=== PATIENT | male | born 1955 ===

== ENCOUNTER 2017-06-20 09:31 | Inpatient (IN) | payer MEDICARE, MEDICAID ==
[2017-06-20 09:32] VITALS: BMI 21.2
[2017-06-20 10:22] LABS: BASO % 0.2 % (0.0-2.0); EOS % 0.1 % (0.0-4.0); HEMATOCRIT 32.2 % (35.0-51.0); LYMPH # 0.5 K/uL (1.0-4.3); LYMPH % 6.7 % (20.0-40.0); MEAN CELL VOLUME 89.7 fL (80.0-94.0); MEAN CORPUSCULAR HEMOGLOBIN 29.8 pg (27.0-31.0); MEAN CORPUSCULAR HGB CONC 33.2 g/dL (33.0-37.0); MEAN PLATELET VOLUME 8.9 fL (7.2-11.7); MONO # 0.8 K/uL (0.0-0.8); MONO % 9.8 % (0.0-10.0); RED CELL DISTRIBUTION WIDTH 16.7 % (11.5-14.5); WHITE BLOOD COUNT 7.9 K/uL (4.8-10.8)
[2017-06-20 10:24] LABS: PLATELET COUNT 119 K/uL (130-400)
[2017-06-20 10:30] LABS: ALB/GLOB RATIO 0.9 (1.0-2.1); ALKALINE PHOSPHATASE 150 U/L (38-126); ALT/SGPT 27 U/L (21-72); AST/SGOT 20 U/L (17-59); BLOOD UREA NITROGEN 46 mg/dL (9-20); CALCIUM 9.2 mg/dl (8.6-10.4); CARBON DIOXIDE 36 mmol/L (22-30); CHLORIDE 94 mmol/L (98-107); GFR AFRICAN-AMERICAN 15; GLUCOSE,RANDOM 159 mg/dL (75-110); POTASSIUM 3.8 mmol/L (3.6-5.2); SODIUM 137 mmol/L (132-148); TOTAL PROTEIN 7.3 g/dL (6.3-8.3)
--- NOTE | 2017-06-20 10:30 | C.PDOC ---
History Of Present Illness 61 year old male is sent her from his [facility] for evaluation of SOB. As per [facility] patient had a fever last night, today his SOB was worsened, he was given clonidine 0.3 mg PO and imdur while at the [facility]. Patient states he goes to dialysis on Sunday, and Sunday. Time Seen by Provider: 06/20/17 10:01 Chief Complaint (Nursing): Shortness Of Breath History Per: Patient History/Exam Limitations: clinical condition Onset/Duration Of Symptoms: Hrs Current Symptoms Are (Timing): Still Present Quality: "Pain" Exacerbating Factor(s): Laying Flat Associated Symptoms: Ankle/Leg Swelling Recent travel outside of the [place]: No Additional History Per: Patient Past Medical History Reviewed: Historical Data, Nursing Documentation, Vital Signs Vital Signs: Last Vital Signs Temp 99.0 F 06/20/17 09:38 Pulse 75 06/20/17 12:00 Resp 24 06/20/17 12:00 BP 171/72 H 06/20/17 12:00 Pulse Ox 98 06/20/17 12:00 - Medical History PMH: Anemia (BLOOD TRANSFUSION-ACCIDENTAL DISLODGEMENT OF NEEDLE TO SHUNT LOST 2 L OF BL), CHF, COPD, Diabetes, Gastrointestinal Ulcer, HTN, Hypercholesterolemia, Hyperlipidemia, Hypothyroidism, Pneumonia, End Stage Renal Disease (on hemodialysis 3x a week), Chronic Kidney Disease, TIA Denies: Bronchitis Surgical History: Coronary Stent Denies: Pacemaker - [facility] CONTINUOUS INVASIVE MECHANICAL VENTILATION <96 CONSEC HRS (01/16/13) CORONAR ARTERIOGR-2 CATH (05/04/12) DESTRUCTION OF STOMACH, ENDO (12/21/15) DX ULTRASOUND-HEAD/NECK (04/25/12) GAIT TRAINING/FUNCTIONAL AMBULATION TREATMENT (09/03/15) HEAD SOFT TISS X-RAY NEC (04/25/12) HEMODIALYSIS (10/01/14) INCIS W REM OF FORIEGN BODY OR DEV FROM SKIN & SUBCUT TISSUE (01/15/13) INSERT ENDOTRACHEAL TUBE (01/16/13) INSERTION OF ONE VASCULAR STENT (05/04/12) INSERTION OF TOTALLY IMPLANTABLE VASC ACCESS DEVIC (07/24/12) INSPECTION OF LARYNX, ENDO (08/29/15) INSRT OF DRUG-ELUTING CORON ARTERY STENTS(S) (05/04/12) INTRODUCE OF OTH THERAP SUBST INTO RESP TRACT, VIA OPENING (12/21/15) LEFT HEART CARDIAC CATH (05/04/12) LT HEART ANGIOCARDIOGRAM (05/04/12) MAGNETIC RESONANCE IMAGING OF BRAIN AND BRAIN STEM (11/12/12) MAGNETIC RESONANCE IMAGING OF MUSCULOSKELETAL (12/03/12) NEBULIZER THERAPY (01/16/13) NONEXCIS DEBRID OF WOUND, INFECT, OR BURN (12/03/12) PACKED CELL TRANSFUSION (05/04/12) PERCUTANEOUS TRANSLUMINAL CORONARY ANGIOPLASTY [PTCA] (05/04/12) PERFORMANCE OF URINARY FILTRATION, MULTIPLE (12/21/15) PERFORMANCE OF URINARY FILTRATION, SINGLE (11/12/15) PROCEDURE ON SINGLE VESSEL (05/04/12) TRANSFUSE NONAUT RED BLOOD CELLS IN PERIPH VEIN, PERC (12/21/15) VACCINATION NEC (07/24/12) VENOUS CATHETERIZATION FOR RENAL DIALYSIS (04/25/12) VENOUS PUNCTURE NEC (08/19/13) VOCATION/COMMUN TREATMENT (09/03/15) Family History: States: Unknown Family Hx - Social History Hx Tobacco Use: No Hx Alcohol Use: No Hx Substance Use: No Review Of Systems Review Of Systems: ROS cannot be obtained secondary to pt's inabilty to answer questions. Physical Exam - Physical Exam Appears: Non-toxic, In Acute Distress Skin: Normal Color, Warm, Dry Head: Atraumatic, Normacephalic Nose: No Discharge Oral Mucosa: Moist Neck: Normal ROM, Supple Chest: Symmetrical Cardiovascular: Rhythm Regular, No Murmur Respiratory: Rales (B/L), Rhonchi (B/L), Other (Mild SOB) Gastrointestinal/Abdominal: Soft, No Tenderness, No Distention, No Rebound Extremity: Normal ROM, No Calf Tenderness, No Deformity, Swelling (1+ B/L lower extremities) Neurological/Psych: Oriented x3 ED Course And Treatment - Laboratory Results Result Diagrams: 06/20/17 10:15 06/20/17 10:15 O2 Sat by Pulse Oximetry: 98 (On RA) Pulse Ox Interpretation: Normal - Radiology CXR: Interpreted by Me, Viewed By Me, Read By Radiologist CXR Interpretation: Yes: Other (Mild central pulmonary vascular congestion with more confluent opacities both lung bases. Suspect small bilateral effusions.) Medical Decision Making Medical Decision Making: Impression : Mild SOB Plan: * ABG * EKG * CXR * Blood work * Blood culture * O2 nasal cannula Disposition Discussed With : Jp Hernandez - Disposition Disposition: HOSPITALIZED Disposition Time: 12:20 Condition: IMPROVED Forms: [facility] (Lao) - Clinical Impression Clinical Impression: Congestive cardiac failure, Chronic congestive heart failure, Renal failure - Scribe Statement The provider has reviewed the documentation as recorded by the Scribe Provider Attestation: Mikie Ventura All medical record entries made by the Scribe were at my direction and personally dictated by me. I have reviewed the chart and agree that the record accurately reflects my personal performance of the history, physical exam, medical decision making, and the department course for this patient. I have also personally directed, reviewed, and agree with the discharge instructions and disposition.
--- NOTE | 2017-06-20 10:33 | RAD ---
HISTORY: shortness of breath COMPARISON: Comparison chest dated 09/04/2012 ectomy FINDINGS: LUNGS: Mild central pulmonary vascular congestive changes with more confluent opacification in both lung bases. . There may also be small bilateral effusions left larger than right. Pleura As above. No apparent pneumothorax. CARDIOVASCULAR: Cardiomegaly. OSSEOUS STRUCTURES: No significant abnormalities. VISUALIZED UPPER ABDOMEN: Normal. OTHER FINDINGS: None. IMPRESSION: Mild central pulmonary vascular congestion with more confluent opacities both lung bases. Suspect small bilateral effusions.
[2017-06-20 10:46] LABS: BASOPHIL 1 % (0-2); NEUTROPHIL 70 % (50-75); TOTAL CELLS COUNTED 100
[2017-06-20 11:09] LABS: ARTERIAL BLOOD HGB O2 SAT 86.7 % (95.0-98.0); DRAW SITE LB; HHB 7.6 % (0.0-5.0); METHEMOGLOBIN 1.8 % (0.0-3.0)
--- NOTE | 2017-06-20 19:45 | CP.PCM.HP ---
Past Patient History - Infectious Disease Hx of Infectious Diseases: None - Tetanus Immunizations Tetanus Immunization: Unknown - Past Medical History & Family History Past Medical History?: Yes - Past Social History Smoking Status: Former Smoker - CARDIAC Hx Congestive Heart Failure: Yes Hx Hypercholesterolemia: Yes Hx Hypertension: Yes Hx Pacemaker: No - PULMONARY Hx Bronchitis: No Hx Chronic Obstructive Pulmonary Disease (COPD): Yes Hx Pneumonia: Yes - NEUROLOGICAL Hx Transient Ischemic Attacks (TIA): Yes - HEENT Hx HEENT Problems: Yes (WEARS RX GLASSES) Hx Cataracts: Yes (RIGHT EYE) Other/Comment: left strabismus - RENAL Hx Chronic Kidney Disease: Yes - ENDOCRINE/METABOLIC Hx Hypothyroidism: Yes - HEMATOLOGICAL/ONCOLOGICAL Hx Anemia: Yes (BLOOD TRANSFUSION-ACCIDENTAL DISLODGEMENT OF NEEDLE TO SHUNT LOST 2 L OF BL) - INTEGUMENTARY Hx Dermatological Problems: Yes Other/Comment: dry itchy skin - MUSCULOSKELETAL/RHEUMATOLOGICAL Hx Falls: Yes (in the past) - GASTROINTESTINAL Hx Gastrointestinal Disorders: Yes (ASCITES 10-01-15,GASTROENTERITIS) Hx Ulcer: Yes Other/Comment: CONSTIPATION, hx c dif 09/16/15 - GENITOURINARY/GYNECOLOGICAL Hx Genitourinary Disorders: Yes Other/Comment: oliguria - PSYCHIATRIC Hx Substance Use: No - SURGICAL HISTORY Hx Coronary Stent: Yes - ANESTHESIA Hx Anesthesia: Yes Hx Anesthesia Reactions: No Hx Malignant Hyperthermia: No Meds Allergies/Adverse Reactions: Allergies Allergy/AdvReac Type Severity Reaction Status Date / Time tetanus and diphtheria Allergy RASH Verified 12/21/15 11:29 toxoids [tetanus & diphtheria toxoids] Physical Exam - Constitutional Appears: Well - Head Exam Head Exam: ATRAUMATIC, NORMAL INSPECTION, NORMOCEPHALIC - Eye Exam Eye Exam: EOMI, Normal appearance, PERRL Pupil Exam: NORMAL ACCOMODATION, PERRL - ENT Exam ENT Exam: Mucous Membranes Moist, Normal Exam - Neck Exam Neck exam: Positive for: Normal Inspection - Respiratory Exam Respiratory Exam: Decreased Breath Sounds - Cardiovascular Exam Cardiovascular Exam: REGULAR RHYTHM, +S1, +S2 - GI/Abdominal Exam GI & Abdominal Exam: Diminished Bowel Sounds, Soft - Rectal Exam Rectal Exam: Deferred Results - Vital Signs Recent Vital Signs: Last Vital Signs Temp 98.1 F 06/20/17 17:25 Pulse 76 06/20/17 13:55 Resp 24 06/20/17 17:25 BP 178/83 H 06/20/17 17:25 Pulse Ox 95 06/20/17 17:25 - Labs Result Diagrams: 06/20/17 10:15 06/20/17 10:15 Labs: Laboratory Results - last 24 hr 06/20/17 06/20/17 06/20/17 10:15 10:15 11:00 WBC 7.9 RBC 3.59 L Hgb 10.7 L Hct 32.2 L MCV 89.7 MCH 29.8 MCHC 33.2 RDW 16.7 H Plt Count 119 L MPV 8.9 Neut % (Auto) 83.2 H Lymph % (Auto) 6.7 L [place] % (Auto) 9.8 Eos % (Auto) 0.1 Baso % (Auto) 0.2 Neut # 6.6 Lymph # 0.5 L [place] # 0.8 Eos # 0.0 Baso # 0.0 Neutrophils % (Manual) 70 Band Neutrophils % 9 H Lymphocytes % (Manual) 9 L Monocytes % (Manual) 11 H Basophils % (Manual) 1 Platelet Estimate Markedly decreased L Anisocytosis (manual) Slight Puncture Site Lb pCO2 56 H pO2 57 L HCO3 28.7 H ABG pH 7.36 ABG Total CO2 33.3 H ABG O2 Saturation 91.9 L ABG Base Excess 5.1 H ABG Hemoglobin 9.9 L ABG Carboxyhemoglobin 4.0 H POC ABG HHb (Measured) 7.6 H ABG Methemoglobin 1.8 Juan Test Na Hgb O2 Saturation 86.7 L Liter Flow 4.0 Crit Value Called To Dr delcid Crit Value Called By Pedrito perez [facility] Crit Value Read Back Y Blood Gas Notified Time 1110 Sodium 137 Potassium 3.8 Chloride 94 L Carbon Dioxide 36 H Anion Gap 12 BUN 46 H Creatinine 4.7 H Est GFR ( Amer) 15 Est GFR (Non-Af Amer) 13 POC Glucose (mg/dL) Random Glucose 159 H Calcium 9.2 Total Bilirubin 1.0 AST 20 ALT 27 Alkaline Phosphatase 150 H Troponin I 0.0670 NT-Pro-B Natriuret Pep > 391478 H Total Protein 7.3 Albumin 3.5 Globulin 3.8 Albumin/Globulin Ratio 0.9 L 06/20/17 18:52 WBC RBC Hgb Hct MCV MCH MCHC RDW Plt Count MPV Neut % (Auto) Lymph % (Auto) [place] % (Auto) Eos % (Auto) Baso % (Auto) Neut # Lymph # [place] # Eos # Baso # Neutrophils % (Manual) Band Neutrophils % Lymphocytes % (Manual) Monocytes % (Manual) Basophils % (Manual) Platelet Estimate Anisocytosis (manual) Puncture Site pCO2 pO2 HCO3 ABG pH ABG Total CO2 ABG O2 Saturation ABG Base Excess ABG Hemoglobin ABG Carboxyhemoglobin POC ABG HHb (Measured) ABG Methemoglobin Juan Test Hgb O2 Saturation Liter Flow Crit Value Called To Crit Value Called By Crit Value Read Back Blood Gas Notified Time Sodium Potassium Chloride Carbon Dioxide Anion Gap BUN Creatinine Est GFR ( Amer) Est GFR (Non-Af Amer) POC Glucose (mg/dL) 103 Random Glucose Calcium Total Bilirubin AST ALT Alkaline Phosphatase Troponin I NT-Pro-B Natriuret Pep Total Protein Albumin Globulin Albumin/Globulin Ratio
--- NOTE | 2017-06-21 06:28 | PCM.RRT ---
<Talia Jones - Last Filed: 06/21/17 06:51> LINING FOLDER Nurses Assessment - Situation Date: 06/21/17 Time LINING FOLDER was called: 05:56 - Ventilator Settings Ventilator Respiratory Rate Settin Ventilator Tidal Volume Settin I.Reason for LINING FOLDER - A) Acute Change in Patient: (Select all that apply): Acute change in SBP below Subjective: Rapid response was called at 05:56 for low BP and patient unresponsive. Upon arrival BP was 73/33. Patient had a palpable pulse and HR was in the 50s. IV access was obtained with 18G needle in the left neck. Patient was intubated and bag ventilation started. HR continued to drop to the low 40s and code blue was called at 06:07. 1 of epinephrine was given at 06:07. Pulse increased to 130s and BP was 235/116. BP rechecked and 225/95. O2 Sat was 100%. Patient was transferred to the ICU. Plan - Assessment of Findings&Treatment Plan Transferred to ICU. CXR and EKG ordered. <Neeraj Lopez - Last Filed: 06/21/17 07:24> LINING FOLDER Nurses Assessment - IV IV Inserted during LINING FOLDER?: Yes New IV Insertion Tolerance: Excellent (left EJ, 18G) - Respiratory LINING FOLDER Delivery Method: Intubated Was the Patient Ventilated with Bag/Mask 100% O2?: Yes Secretions Suctioned?: Yes Was the Patient Intubated?: Yes Was the Patient Placed on a Ventilator?: Yes - Ventilator Settings Mode: PRVC Ventilator Respiratory Rate Settin PEEP/CPAP (cm H2O): 5 FIO2 (% Oxygen): 100 - Medication Medications Administered During LINING FOLDER: Epinephrine - Diagnostic Test Ordered EKG: Yes Chest X-Ray: Yes - Stat Labs Ordered LINING FOLDER Stat Labs Ordered: CBC, BMP, PT/PTT, TROPONIN, LACTIC ACID, ABG CPR started during LINING FOLDER?: Yes - Vital Signs Vital Signs: Rapid Response Vital Sign Blood Pressure 73/33 Pulse Rate 48 Respiratory Rate 20 Temperature 97 F - [place] Coma Scale Coma Scale Eye Opening: No response Coma Scale Verbal: No response - Sepsis Screen Part 1 Sepsis Screen Part 1: Hypotensive (initially, responded to 500ml of ns and epinephrine)
[2017-06-21] MEDS ORDERED: Pantoprazole 40 mg EC Tab PO SCH (06:30)
[2017-06-21] MEDS: Levothyroxine 25 MCG TAB PO SCH (06:47)
[2017-06-21 07:11] LABS: BASO % 0.3 % (0.0-2.0); EOS % 0.1 % (0.0-4.0); HEMATOCRIT 34.8 % (35.0-51.0); LYMPH # 0.7 K/uL (1.0-4.3); LYMPH % 8.5 % (20.0-40.0); MEAN CELL VOLUME 91.6 fL (80.0-94.0); MEAN CORPUSCULAR HEMOGLOBIN 29.7 pg (27.0-31.0); MEAN CORPUSCULAR HGB CONC 32.4 g/dL (33.0-37.0); MEAN PLATELET VOLUME 9.1 fL (7.2-11.7); MONO # 0.5 K/uL (0.0-0.8); NRBC % 0.1 % (0.0-2.0); PLATELET COUNT 163 K/uL (130-400); RED CELL DISTRIBUTION WIDTH 17.8 % (11.5-14.5); WHITE BLOOD COUNT 8.3 K/uL (4.8-10.8)
--- NOTE | 2017-06-21 07:17 | CP.PCM.CON ---
History of Present Illness - History of Present Illness History of Present Illness: Chief complaint: Shortness of breath History of present illness: 61-year-old male with a history of end-stage renal disease on dialysis cad, hypertension COPD diabetes admitted with shortness of breath. Patient initially admitted to the medical floor. The patient did become more hypotensive, and hypoxia, rapid response was called , at the time patient blood pressure varied and it was low side. When the team was trying to get the IV access patient become more lethargic, and unresponsive [facility] was called, intubated and brought into the ICU. Patient is now on ventilator, responding to deep stability Blood pressure is better now. Sedated also Patient has a multiple hospitalization in the past. Past medical history: End-stage renal disease on dialysis coronary artery disease, cardiac stent, congestive heart failure, hypertension, COPD and diabetes Surgical history including AV fistula. Social history: Patient from senior care. Review of system: Patient is currently on ventilator. Sedated. Further history not available. Medication history noted from the chart Vital signs reviewed No neck vein distention noted Chest bilateral wheezing and rhonchi noted CVS regular heart sound, no murmur noted Abdomen soft, nontender. 1+ pedal edema Patient is currently sedated. Vital signs stable. Chest x-ray shoveling earlier diffuse congestive heart failure, possible aspiration pneumonia Repeat chest x-ray pending. Patient's labs nonspecific Assessment and recommendation: 61-year-old male with a history of diabetes hypertension COPD, end-stage renal disease on dialysis coronary disease, stenting admitted with the shortness of breath, complicated, bradycardia, respiratory arrest status post intubation. Brief CPR. Patient is currently in the intensive care unit. ICU panel, sedation, he may need to dialysis. Closely monitor in the the intensive care unit. ICU team will follow the patient Past Patient History - Infectious Disease Hx of Infectious Diseases: None - Tetanus Immunizations Tetanus Immunization: Unknown - Past Medical History & Family History Past Medical History?: Yes - Past Social History Smoking Status: Never Smoked - CARDIAC Hx Cardiac Disorders: Yes Hx Congestive Heart Failure: Yes Hx Hypercholesterolemia: Yes Hx Hypertension: Yes - PULMONARY Hx Respiratory Disorders: Yes Hx Chronic Obstructive Pulmonary Disease (COPD): Yes Hx Pneumonia: Yes - NEUROLOGICAL Hx Neurological Disorder: Yes Hx Transient Ischemic Attacks (TIA): Yes - HEENT Hx HEENT Problems: Yes (WEARS RX GLASSES) Hx Cataracts: Yes (RIGHT EYE) Other/Comment: left strabismus - RENAL Hx Chronic Kidney Disease: Yes Hx Dialysis: Yes Type of Dialysis Access: Left upper arm HD access Date of Last Dialysis Treatment: 06/20/17 Hx Renal Failure: Yes - ENDOCRINE/METABOLIC Hx Endocrine Disorders: Yes Hx Diabetes Mellitus Type 2: Yes Hx Hypothyroidism: Yes - HEMATOLOGICAL/ONCOLOGICAL Hx Blood Disorders: Yes Hx Anemia: Yes (BLOOD TRANSFUSION-ACCIDENTAL DISLODGEMENT OF NEEDLE TO SHUNT LOST 2 L OF BL) Hx Blood Transfusions: Yes Hx Blood Transfusion Reaction: No - INTEGUMENTARY Hx Dermatological Problems: Yes Other/Comment: dry itchy skin - MUSCULOSKELETAL/RHEUMATOLOGICAL Hx Musculoskeletal Disorders: Yes Hx Arthritis: Yes Hx Back Pain: Yes Hx Falls: Yes (in the past) Hx Unsteady Gait: Yes (uses cane) - GASTROINTESTINAL Hx Gastrointestinal Disorders: Yes (ASCITES 10-01-14,GASTROENTERITIS) Hx Ulcer: Yes Other/Comment: CONSTIPATION, hx c dif 09/16/15, gastrointestinal ulcer - GENITOURINARY/GYNECOLOGICAL Hx Genitourinary Disorders: Yes Other/Comment: oliguria - PSYCHIATRIC Hx Psychophysiologic Disorder: No Hx Substance Use: No - SURGICAL HISTORY Hx Surgeries: Yes Hx Coronary Stent: Yes - ANESTHESIA Hx Anesthesia: Yes Hx Anesthesia Reactions: No Hx Malignant Hyperthermia: No Has any member of the family had a problem w/ anesthesia?: No Meds Allergies/Adverse Reactions: Allergies Allergy/AdvReac Type Severity Reaction Status Date / Time tetanus and diphtheria Allergy RASH Verified 12/21/15 11:29 toxoids [tetanus & diphtheria toxoids] - Medications Medications: Current Medications Albuterol/Ipratropium (Duoneb 3 Mg/0.5 Mg (3 Ml) Ud) 3 ml IH RQ2 PRN PRN Reason: Shortness of Breath Allopurinol (Zyloprim) 100 mg PO DAILY [facility] Amlodipine Besylate (Norvasc) 10 mg PO DAILY [facility] Aspirin (Aspirin) 325 mg PO 0800 [place] Calcium Acetate (Phoslo) 667 mg PO WM [facility] Carvedilol (Coreg) 3.125 mg PO 0800 [place] Clopidogrel Bisulfate (Plavix) 75 mg PO 0800 [facility] Docusate Sodium (Colace) 100 mg PO BID [facility] Famotidine (Pepcid) 20 mg PO DAILY@0630 [facility] Folic Acid (Folic Acid) 1 mg PO DAILY [facility] Furosemide (Lasix) 80 mg PO DAILY [facility] Heparin Sodium (Porcine) (Heparin) 5,000 units SC BID [facility] Home Med (Insulin Lispro-Low [Humalog Low]) 1 10 SC ACHS [facility] Levothyroxine Sodium (Synthroid) 25 mcg PO 0630 [facility] Last Admin: 06/21/17 06:47 Dose: 25 mcg Minoxidil (Minoxidil) 2.5 mg PO DAILY [facility] Rosuvastatin Calcium (Crestor) 5 mg PO [facility] Results - Vital Signs Recent Vital Signs: Last Vital Signs Temp 98.5 F 06/21/17 03:50 Pulse 119 H 06/21/17 06:55 Resp 20 06/21/17 06:55 BP 225/95 H 06/21/17 06:55 Pulse Ox 100 06/21/17 06:55 - Labs Result Diagrams: 06/21/17 07:07 06/20/17 10:15 Labs: Laboratory Results - last 24 hr 06/20/17 06/20/17 06/20/17 10:15 10:15 11:00 WBC 7.9 RBC 3.59 L Hgb 10.7 L Hct 32.2 L MCV 89.7 MCH 29.8 MCHC 33.2 RDW 16.7 H Plt Count 119 L MPV 8.9 Neut % (Auto) 83.2 H Lymph % (Auto) 6.[address] [place] % (Auto) 9.8 Eos % (Auto) 0.1 Baso % (Auto) 0.2 Neut # 6.6 Lymph # 0.[address] [place] # 0.8 Eos # 0.0 Baso # 0.0 Neutrophils % (Manual) 70 Band Neutrophils % 9 H Lymphocytes % (Manual) 9 L Monocytes % (Manual) 11 H Basophils % (Manual) 1 Platelet Estimate Markedly decreased L Anisocytosis (manual) Slight Puncture Site Lb pCO2 56 H pO2 57 L HCO3 28.7 H ABG pH 7.36 ABG Total CO2 33.3 H ABG O2 Saturation 91.9 L ABG Base Excess 5.1 H ABG Hemoglobin 9.9 L ABG Carboxyhemoglobin 4.0 H POC ABG HHb (Measured) 7.6 H ABG Methemoglobin 1.8 Juan Test Na Hgb O2 Saturation 86.7 L Liter Flow 4.0 Crit Value Called To Dr delcid Crit Value Called By Pedrito perez [facility] Crit Value Read Back Y Blood Gas Notified Time 1110 Sodium 137 Potassium 3.8 Chloride 94 L Carbon Dioxide 36 H Anion Gap 12 BUN 46 H Creatinine 4.7 H Est GFR ( Amer) 15 Est GFR (Non-Af Amer) 13 POC Glucose (mg/dL) Random Glucose 159 H Calcium 9.2 Total Bilirubin 1.0 AST 20 ALT 27 Alkaline Phosphatase 150 H Troponin I 0.0670 NT-Pro-B Natriuret Pep > 985102 H Total Protein 7.3 Albumin 3.5 Globulin 3.8 Albumin/Globulin Ratio 0.9 L 06/20/17 06/20/17 06/21/17 18:52 21:09 05:59 WBC RBC Hgb Hct MCV MCH MCHC RDW Plt Count MPV Neut % (Auto) Lymph % (Auto) [place] % (Auto) Eos % (Auto) Baso % (Auto) Neut # Lymph # [place] # Eos # Baso # Neutrophils % (Manual) Band Neutrophils % Lymphocytes % (Manual) Monocytes % (Manual) Basophils % (Manual) Platelet Estimate Anisocytosis (manual) Puncture Site pCO2 pO2 HCO3 ABG pH ABG Total CO2 ABG O2 Saturation ABG Base Excess ABG Hemoglobin ABG Carboxyhemoglobin POC ABG HHb (Measured) ABG Methemoglobin Juan Test Hgb O2 Saturation Liter Flow Crit Value Called To Crit Value Called By Crit Value Read Back Blood Gas Notified Time Sodium Potassium Chloride Carbon Dioxide Anion Gap BUN Creatinine Est GFR ( Amer) Est GFR (Non-Af Amer) POC Glucose (mg/dL) 103 118 H 144 H Random Glucose Calcium Total Bilirubin AST ALT Alkaline Phosphatase Troponin I NT-Pro-B Natriuret Pep Total Protein Albumin Globulin Albumin/Globulin Ratio 06/21/17 07:07 WBC 8.3 RBC 3.80 L Hgb 11.3 L Hct 34.8 L MCV 91.6 MCH 29.7 MCHC 32.4 L RDW 17.8 H Plt Count 163 MPV 9.1 Neut % (Auto) 85.1 H Lymph % (Auto) 8.[address] [place] % (Auto) 6.0 Eos % (Auto) 0.1 Baso % (Auto) 0.3 Neut # 7.1 H Lymph # 0.[address] [place] # 0.5 Eos # 0.0 Baso # 0.0 Neutrophils % (Manual) Band Neutrophils % Lymphocytes % (Manual) Monocytes % (Manual) Basophils % (Manual) Platelet Estimate Anisocytosis (manual) Puncture Site pCO2 pO2 HCO3 ABG pH ABG Total CO2 ABG O2 Saturation ABG Base Excess ABG Hemoglobin ABG Carboxyhemoglobin POC ABG HHb (Measured) ABG Methemoglobin Juan Test Hgb O2 Saturation Liter Flow Crit Value Called To Crit Value Called By Crit Value Read Back Blood Gas Notified Time Sodium Potassium Chloride Carbon Dioxide Anion Gap BUN Creatinine Est GFR ( Amer) Est GFR (Non-Af Amer) POC Glucose (mg/dL) Random Glucose Calcium Total Bilirubin AST ALT Alkaline Phosphatase Troponin I NT-Pro-B Natriuret Pep Total Protein Albumin Globulin Albumin/Globulin Ratio
--- NOTE | 2017-06-21 07:28 | PCM.PROC ---
Procedures Attestation:: I certify that I have explained the specified Operation(s) or Procedure(s), risks, benefits and reasonable alternatives to the Patient and/or other person responsible. The opportunity was given to ask questions and all questions answered - Intubation Time Out Performed: Yes Sedative: None Laryngoscope: Gray (4) Assist Device Used: Other (stylet) ET Tube Size: 8.0 ET Tube Uncuffed: No ET Tube Secured at Depth: 25 ET Tube Secured [place]: Teeth ET Tube Placement Confirmation: Breath Sounds Equal Bilaterally, No Breath Sounds Over Epigastrum, Confirmation w/Capnometry Patient Tolerated Procedure: Well Procedure Immediate Complications: None Additional comments: ET tip on xray 1.5 cm above sidney, can be pulled up about 2cm.
[2017-06-21] MEDS ORDERED: [UNRECOGNIZED DRUG - OTHER] SC SCH (07:30)
[2017-06-21 07:37] LABS: TROPONIN I 0.071 ng/mL (0.00-0.120)
[2017-06-21 07:57] LABS: ALB/GLOB RATIO 0.9 (1.0-2.1); BILIRUBIN,TOTAL 1.6 mg/dL (0.2-1.3); CALCIUM 8.7 mg/dl (8.6-10.4); MAGNESIUM 2.1 mg/dL (1.6-2.3); PHOSPHOROUS 6.1 mg/dL (2.5-4.5); POTASSIUM 3.1 mmol/L (3.6-5.2); TOTAL PROTEIN 7.7 g/dL (6.3-8.3)
[2017-06-21 08:17] LABS: ABG MECHANICAL RATE 20; ARTERIAL BLOOD GAS MODE PRVC; ATERIAL BLOOD GAS PEEP 5; DRAW SITE RBA
[2017-06-21 08:21] LABS: EOSINOPHIL 1 % (0-4); NEUTROPHIL 75 % (50-75); TOTAL CELLS COUNTED 100
[2017-06-21 08:22] LABS: LARGE PLATELETS PRESENT
--- NOTE | 2017-06-21 08:37 | RAD ---
Chest x-ray single frontal view History: Unresponsive. Comparison: 06/20/2017 Findings: Endotracheal tube is low lying approximately 7 millimeters above the [place]. Retraction approximately 1.3 centimeters is recommended. NG tube extending into the stomach. Moderate venous congestion. Right hilar prominence. Patchy increased markings in the right infrahilar region. Small left pleural effusion. Cardiomegaly. Calcification at the aortic knob. Degenerative changes spine paravertebral osteophytes. Impression: Endotracheal tube is low lying approximately 7 millimeters above the [place]. Retraction approximately 1.3 centimeters is recommended. NG tube extending into the stomach. Moderate venous congestion. Right hilar prominence. Patchy increased markings in the right infrahilar region. Small left pleural effusion. Cardiomegaly.
[2017-06-21] MEDS ORDERED: Potassium Chloride 20 mEq/15 ml LIQ UD NG ONE (08:45)
[2017-06-21] MEDS ORDERED: cefTRIAXone IV 1 gm in Dextros 50 ML IVPB SCH (10:00)
[2017-06-21] MEDS ORDERED: Azithromycin 500mg/250ML NS 500 MG/250 ML BAG IVPB SCH (10:00)
[2017-06-21] MEDS ORDERED: Albumin Human 25% (12.5 gm/50 ml) IV SCH (10:30)
[2017-06-21] MEDS ORDERED: Vancomycin 1 gm/NS 200 ml 1 GM/200 ML BAG IVPB ONE (11:00)
[2017-06-21] MEDS: Piperacill/Tazo 2.25gm in Dex 2.25 GM/50 ML BAG IVPB SCH ×3 (11:26→22:17)
[2017-06-21] MEDS: (Novolin R) Insulin Human Regular 100 units/ml vial SC SCH ×2 (12:00→17:58)
--- NOTE | 2017-06-21 12:22 | CARD ---
APPROVED REPORT EKG Measurement Heart [id number] <Conclusion> Normal sinus rhythm non specific ST & T wave changes Abnormal ECG
--- NOTE | 2017-06-21 13:34 | CP.PCM.CON ---
History of Present Illness - History of Present Illness History of Present Illness: Reason for consultation: respiratory arrest on ventilatory support 61-year-old male with history of end-stage renal disease on hemodialysis, COPD, hypertension was admitted with shortness of breath to the floor. Later patient was transferred to ICu after he got intubated for increasing lethargy and respiratory arrest. Patient now on ventilatory support response to vocal commands and getting hemodialysis. Chest x-ray consistent with bilateral infiltrate. Review of Systems - Review of Systems Systems not reviewed;Unavailable: Intubated Past Patient History - Infectious Disease Hx of Infectious Diseases: None - Tetanus Immunizations Tetanus Immunization: Unknown - Past Medical History & Family History Past Medical History?: Yes - Past Social History Smoking Status: Never Smoked - CARDIAC Hx Cardiac Disorders: Yes Hx Congestive Heart Failure: Yes Hx Hypercholesterolemia: Yes Hx Hypertension: Yes - PULMONARY Hx Respiratory Disorders: Yes Hx Chronic Obstructive Pulmonary Disease (COPD): Yes Hx Pneumonia: Yes - NEUROLOGICAL Hx Neurological Disorder: Yes Hx Transient Ischemic Attacks (TIA): Yes - HEENT Hx HEENT Problems: Yes (WEARS RX GLASSES) Hx Cataracts: Yes (RIGHT EYE) Other/Comment: left strabismus - RENAL Hx Chronic Kidney Disease: Yes Hx Dialysis: Yes Type of Dialysis Access: Left upper arm HD access Date of Last Dialysis Treatment: 06/20/17 Hx Renal Failure: Yes - ENDOCRINE/METABOLIC Hx Endocrine Disorders: Yes Hx Diabetes Mellitus Type 2: Yes Hx Hypothyroidism: Yes - HEMATOLOGICAL/ONCOLOGICAL Hx Blood Disorders: Yes Hx Anemia: Yes (BLOOD TRANSFUSION-ACCIDENTAL DISLODGEMENT OF NEEDLE TO SHUNT LOST 2 L OF BL) Hx Blood Transfusions: Yes Hx Blood Transfusion Reaction: No - INTEGUMENTARY Hx Dermatological Problems: Yes Other/Comment: dry itchy skin - MUSCULOSKELETAL/RHEUMATOLOGICAL Hx Musculoskeletal Disorders: Yes Hx Arthritis: Yes Hx Back Pain: Yes Hx Falls: Yes (in the past) Hx Unsteady Gait: Yes (uses cane) - GASTROINTESTINAL Hx Gastrointestinal Disorders: Yes (ASCITES 10-01-14,GASTROENTERITIS) Hx Ulcer: Yes Other/Comment: CONSTIPATION, hx c dif 09/16/15, gastrointestinal ulcer - GENITOURINARY/GYNECOLOGICAL Hx Genitourinary Disorders: Yes Other/Comment: oliguria - PSYCHIATRIC Hx Psychophysiologic Disorder: No Hx Substance Use: No - SURGICAL HISTORY Hx Surgeries: Yes Hx Coronary Stent: Yes - ANESTHESIA Hx Anesthesia: Yes Hx Anesthesia Reactions: No Hx Malignant Hyperthermia: No Has any member of the family had a problem w/ anesthesia?: No Meds Allergies/Adverse Reactions: Allergies Allergy/AdvReac Type Severity Reaction Status Date / Time tetanus and diphtheria Allergy RASH Verified 12/21/15 11:29 toxoids [tetanus & diphtheria toxoids] - Medications Medications: Current Medications Albumin Human (Albumin Human 25% (12.5 Gm/50 Ml)) 12.5 gm IV ONCE [facility] Last Admin: 06/21/17 12:16 Dose: 12.5 gm Albuterol/Ipratropium (Duoneb 3 Mg/0.5 Mg (3 Ml) Ud) 3 ml IH RQ2 PRN PRN Reason: Shortness of Breath Allopurinol (Zyloprim) 100 mg PO DAILY [facility] Last Admin: 06/21/17 11:28 Dose: 100 mg Amlodipine Besylate (Norvasc) 10 mg PO DAILY [facility] Aspirin (Aspirin) 325 mg PO 0800 [facility] Last Admin: 06/21/17 07:58 Dose: 325 mg Calcium Acetate (Phoslo) 667 mg PO [facility] Carvedilol (Coreg) 3.125 mg PO 0800 [facility] Last Admin: 06/21/17 07:59 Dose: 3.125 mg Clopidogrel Bisulfate (Plavix) 75 mg PO 0800 [facility] Last Admin: 06/21/17 07:58 Dose: 75 mg Docusate Sodium (Colace) 100 mg PO BID [facility] Last Admin: 06/21/17 10:49 Dose: 100 mg Famotidine (Pepcid) 20 mg PO DAILY@0630 [facility] Last Admin: 06/21/17 07:59 Dose: 20 mg Folic Acid (Folic Acid) 1 mg PO DAILY [facility] Last Admin: 06/21/17 10:49 Dose: 1 mg Furosemide (Lasix) 80 mg PO DAILY [facility] Heparin Sodium (Porcine) (Heparin) 5,000 units SC BID [facility] Last Admin: 06/21/17 10:47 Dose: 5,000 units Piperacillin Sod/Tazobactam Sod (Zosyn 2.25 Gm Iv Premix) 2.25 gm in 50 mls @ 100 mls/hr IVPB Q6H [facility] Last Admin: 06/21/17 11:26 Dose: 100 mls/hr Insulin Human Regular (Novolin R) 0 unit SC Q6H [facility] PRN Reason: Protocol Levothyroxine Sodium (Synthroid) 25 mcg PO 0630 [facility] Last Admin: 06/21/17 06:47 Dose: 25 mcg Minoxidil (Minoxidil) 2.5 mg PO DAILY [facility] Rosuvastatin Calcium (Crestor) 5 mg PO [facility] Physical Exam - Head Exam Head Exam: ATRAUMATIC, NORMOCEPHALIC - ENT Exam ENT Exam: Mucous Membranes Moist - Neck Exam Neck exam: Positive for: Normal Inspection - Respiratory Exam Respiratory Exam: Decreased Breath Sounds - Cardiovascular Exam Cardiovascular Exam: REGULAR RHYTHM - GI/Abdominal Exam GI & Abdominal Exam: Normal Bowel Sounds, Soft Results - Vital Signs Recent Vital Signs: Last Vital Signs Temp 98.3 F 06/21/17 13:00 Pulse 75 06/21/17 13:00 Resp 23 06/21/17 13:00 BP 85/49 L 06/21/17 13:00 Pulse Ox 100 06/21/17 13:00 - Labs Result Diagrams: 06/21/17 07:07 06/21/17 07:07 Labs: Laboratory Results - last 24 hr 06/20/17 06/20/17 06/21/17 18:52 21:09 05:59 WBC RBC Hgb Hct MCV MCH MCHC RDW Plt Count MPV Neut % (Auto) Lymph % (Auto) [place] % (Auto) Eos % (Auto) Baso % (Auto) Neut # Lymph # [place] # Eos # Baso # Neutrophils % (Manual) Band Neutrophils % Lymphocytes % (Manual) Monocytes % (Manual) Eosinophils % (Manual) Platelet Estimate Large Platelets Anisocytosis (manual) Ovalocytes PT INR APTT Puncture Site pCO2 pO2 HCO3 ABG pH ABG Total CO2 ABG O2 Saturation ABG Base Excess Juan Test ABG Potassium A-a O2 Difference Respiratory Index Glucose Lactate Vent Mode Mechanical Rate FiO2 Tidal Volume PEEP Sodium Potassium Chloride Carbon Dioxide Anion Gap BUN Creatinine Est GFR ( Amer) Est GFR (Non-Af Amer) POC Glucose (mg/dL) 103 118 H 144 H Random Glucose Calcium Phosphorus Magnesium Total Bilirubin AST ALT Alkaline Phosphatase Troponin I Total Protein Albumin Globulin Albumin/Globulin Ratio Arterial Blood Potassium 06/21/17 06/21/17 06/21/17 07:07 07:07 07:07 WBC 8.3 RBC 3.80 L Hgb 11.3 L Hct 34.8 L MCV 91.6 MCH 29.7 MCHC 32.4 L RDW 17.8 H Plt Count 163 MPV 9.1 Neut % (Auto) 85.1 H Lymph % (Auto) 8.5 L [place] % (Auto) 6.0 Eos % (Auto) 0.1 Baso % (Auto) 0.3 Neut # 7.1 H Lymph # 0.7 L [place] # 0.5 Eos # 0.0 Baso # 0.0 Neutrophils % (Manual) 75 Band Neutrophils % 15 H* Lymphocytes % (Manual) 3 L Monocytes % (Manual) 6 Eosinophils % (Manual) 1 Platelet Estimate Normal Large Platelets Present Anisocytosis (manual) Slight Ovalocytes Slight PT 11.4 INR 1.0 APTT 46 H Puncture Site pCO2 pO2 HCO3 ABG pH ABG Total CO2 ABG O2 Saturation ABG Base Excess Juan Test ABG Potassium A-a O2 Difference Respiratory Index Glucose Lactate Vent Mode Mechanical Rate FiO2 Tidal Volume PEEP Sodium 143 Potassium 3.1 L Chloride 98 Carbon Dioxide 28 Anion Gap 21 H BUN 29 H Creatinine 3.9 H Est GFR ( Amer) 19 Est GFR (Non-Af Amer) 16 POC Glucose (mg/dL) Random Glucose 144 H Calcium 8.7 Phosphorus 6.1 H Magnesium 2.1 Total Bilirubin 1.6 H AST 20 ALT 19 L D Alkaline Phosphatase 165 H Troponin I 0.0710 Total Protein 7.7 Albumin 3.7 Globulin 4.1 H Albumin/Globulin Ratio 0.9 L Arterial Blood Potassium 06/21/17 06/21/17 08:14 12:14 WBC RBC Hgb Hct MCV MCH MCHC RDW Plt Count MPV Neut % (Auto) Lymph % (Auto) [place] % (Auto) Eos % (Auto) Baso % (Auto) Neut # Lymph # [place] # Eos # Baso # Neutrophils % (Manual) Band Neutrophils % Lymphocytes % (Manual) Monocytes % (Manual) Eosinophils % (Manual) Platelet Estimate Large Platelets Anisocytosis (manual) Ovalocytes PT INR APTT Puncture Site Rba pCO2 58 H pO2 376 H HCO3 27.5 ABG pH 7.33 L ABG Total CO2 32.4 H ABG O2 Saturation 99.0 H ABG Base Excess 3.2 H Juan Test Na ABG Potassium 3.8 A-a O2 Difference 265.0 Respiratory Index 0.7 Glucose 153 H Lactate 1.0 Vent Mode Prvc Mechanical Rate 20 FiO2 100.0 Tidal Volume 500 PEEP 5 Sodium 141.0 Potassium Chloride 105.0 Carbon Dioxide Anion Gap BUN Creatinine Est GFR ( Amer) Est GFR (Non-Af Amer) POC Glucose (mg/dL) 90 Random Glucose Calcium Phosphorus Magnesium Total Bilirubin AST ALT Alkaline Phosphatase Troponin I Total Protein Albumin Globulin Albumin/Globulin Ratio Arterial Blood Potassium 3.8 Assessment & Plan (1) Acute respiratory failure Status: Acute Comment: continue ventilatory support and reduce FiO2 as tolerated. Hemodialysis. IV antibiotics. Followup culture and sensitivity. Nebulizer treatment and IV steroids (2) Pneumonia Status: Acute (3) ESRD (end stage renal disease) on dialysis Status: Chronic
--- NOTE | 2017-06-21 17:15 | CP.PCM.CON ---
History of Present Illness - History of Present Illness History of Present Illness: 61 year old male is sent her from his long-term for evaluation of SOB. As per long-term patient had a fever last night, today his SOB was worsened, he was given clonidine 0.3 mg PO and imdur while at the long-term. Patient states he goes to dialysis on Sunday, and Sunday. code sepsis called for elevated bandemia - Medical History PMH: Anemia (BLOOD TRANSFUSION-ACCIDENTAL DISLODGEMENT OF NEEDLE TO SHUNT LOST 2 L OF BL), CHF, COPD, Diabetes, Gastrointestinal Ulcer, HTN, Hypercholesterolemia, Hyperlipidemia, Hypothyroidism, Pneumonia, End Stage Renal Disease (on hemodialysis 3x a week), Chronic Kidney Disease, TIA Denies: Bronchitis Surgical History: Coronary Stent Denies: Pacemaker - [facility] Procedures CONTINUOUS INVASIVE MECHANICAL VENTILATION <96 CONSEC HRS (01/16/13) CORONAR ARTERIOGR-2 CATH (05/04/12) DESTRUCTION OF STOMACH, ENDO (12/21/15) DX ULTRASOUND-HEAD/NECK (04/25/12) GAIT TRAINING/FUNCTIONAL AMBULATION TREATMENT (09/03/15) HEAD SOFT TISS X-RAY NEC (04/25/12) HEMODIALYSIS (10/01/14) INCIS W REM OF FORIEGN BODY OR DEV FROM SKIN & SUBCUT TISSUE (01/15/13) INSERT ENDOTRACHEAL TUBE (01/16/13) INSERTION OF ONE VASCULAR STENT (05/04/12) INSERTION OF TOTALLY IMPLANTABLE VASC ACCESS DEVIC (07/24/12) INSPECTION OF LARYNX, ENDO (08/29/15) INSRT OF DRUG-ELUTING CORON ARTERY STENTS(S) (05/04/12) INTRODUCE OF OTH THERAP SUBST INTO RESP TRACT, VIA OPENING (12/21/15) LEFT HEART CARDIAC CATH (05/04/12) LT HEART ANGIOCARDIOGRAM (05/04/12) MAGNETIC RESONANCE IMAGING OF BRAIN AND BRAIN STEM (11/12/12) MAGNETIC RESONANCE IMAGING OF MUSCULOSKELETAL (12/03/12) NEBULIZER THERAPY (01/16/13) NONEXCIS DEBRID OF WOUND, INFECT, OR BURN (12/03/12) PACKED CELL TRANSFUSION (05/04/12) PERCUTANEOUS TRANSLUMINAL CORONARY ANGIOPLASTY [PTCA] (05/04/12) PERFORMANCE OF URINARY FILTRATION, MULTIPLE (12/21/15) PERFORMANCE OF URINARY FILTRATION, SINGLE (11/12/15) PROCEDURE ON SINGLE VESSEL (05/04/12) TRANSFUSE NONAUT RED BLOOD CELLS IN PERIPH VEIN, PERC (12/21/15) VACCINATION NEC (07/24/12) VENOUS CATHETERIZATION FOR RENAL DIALYSIS (04/25/12) VENOUS PUNCTURE NEC (08/19/13) VOCATION/COMMUN TREATMENT (09/03/15) Review of Systems - Review of Systems Systems not reviewed;Unavailable: Altered Mental Status, Intubated - Constitutional Constitutional: As Per HPI - EENT Eyes: absent: As Per HPI, Blind Spots, Blurred Vision, Change in Vision, Decreased Night Vision, Diplopia, Discharge, Dry Eye, Exophthalmos, Floaters, Irritation, Itchy Eyes, Loss of Peripheral Vision, Pain, Photophobia, Requires Corrective Lenses, Sees Flashes, Spots in Vision, Tunnel Vision, Other Visual Disturbances, Loss of Vision, Other Ears: absent: As Per HPI, Decreased Hearing, Ear Discharge, Ear Pain, Tinnitus, Abnormal Hearing, Disequilibrium, Dizziness, Other Nose/Mouth/Throat: absent: As Per HPI, Epistaxis, Nasal Congestion, Nasal Discharge, Nasal Obstruction, Nasal Trauma, Nose Pain, Post Nasal Drip, Sinus Pain, Sinus Pressure, Bleeding Gums, Change in Voice, Dental Pain, Dry Mouth, Dysphagia, Halitosis, Hoarsness, Lip Swelling, Mouth Lesions, Mouth Pain, Odynophagia, Sore Throat, Throat Swelling, Tongue Swelling, Facial Pain, Neck Pain, Neck Mass, Other - Cardiovascular Cardiovascular: As Per HPI - Respiratory Respiratory: As Per HPI, Dyspnea - Gastrointestinal Gastrointestinal: absent: As Per HPI, Abdominal Pain, Belching, Bloating, Change in Bowel Habits, Change in Stool Character, Coffee Ground Emesis, Constipation, Cramping, Diarrhea, Dyspepsia, Dysphagia, Early Satiety, Excessive Flatus, Fecal Incontinence, Heartburn, Hematemesis, Hematochezia, Loose Stools, Melena, Nausea, Odynophagia, Temesmus, Vomiting, Other - Genitourinary Genitourinary: absent: As Per HPI, Change in Urinary Stream, Difficulty Urinating, Dysuria, Flank Pain, Hematuria, Pyuria, Nocturia, Urinary Incontinence, Urinary Frequency, Urinary Hesitance, Urinary Urgency, Voiding Freq/Small Amts, Freq UTI, Hx Renal/Bladder Calculi, Hx /Renal Surgery, Bladder Distension, Other - Musculoskeletal Musculoskeletal: absent: As Per HPI, Abnormal Gait, Arthralgias, Atrophy, Back Pain, Deformity, Joint Swelling, Limited Range of Motion, Loss of Height, Muscle Cramps, Muscle Weakness, Myalgias, Neck Pain, Numbness, Radiating Pain into Limb, Stiffness, Tingling, Other - Integumentary Integumentary: absent: As Per HPI, Acne, Alopecia, Bleeding Lesions, Change in Hair, Change in Nails, Change in Pigmentation, Changing Lesions, Dry Skin, Erythema, Furuncle, Hirsutism, Lesions, New Lesions, Non-Healing Lesions, Photosensitivity, Pruritus, Rash, Skin Pain, Skin Ulcer, Sores, Striae, Swelling , Unusual Bruising, Wounds, Jaundice, Other - Neurological Neurological: As Per HPI - Psychiatric Psychiatric: absent: As Per HPI, Abnormal Sleep Pattern, Anhedonia, Anxiety, Auditory Hallucinations, Behavioral Changes, Change in Appetite, Change in Libido, Confusion, Depression, Difficulty Concentrating, Hallucinations, Homicidal Ideation, Hopelessness, Irritability, Memory Loss, Mood Swings, Panic Attacks, Paranoia, Suicidal Ideation, Visual Hallucinations, Tactile Hallucinations, Other - Endocrine Endocrine: As Per HPI - Hematologic/Lymphatic Hematologic: absent: As Per HPI, Easy Bleeding, Easy Bruising, Lymphadenopathy, Other Past Patient History - Infectious Disease Hx of Infectious Diseases: None - Tetanus Immunizations Tetanus Immunization: Unknown - Past Medical History & Family History Past Medical History?: Yes - Past Social History Smoking Status: Never Smoked - CARDIAC Hx Cardiac Disorders: Yes Hx Congestive Heart Failure: Yes Hx Hypercholesterolemia: Yes Hx Hypertension: Yes - PULMONARY Hx Respiratory Disorders: Yes Hx Chronic Obstructive Pulmonary Disease (COPD): Yes Hx Pneumonia: Yes - NEUROLOGICAL Hx Neurological Disorder: Yes Hx Transient Ischemic Attacks (TIA): Yes - HEENT Hx HEENT Problems: Yes (WEARS RX GLASSES) Hx Cataracts: Yes (RIGHT EYE) Other/Comment: left strabismus - RENAL Hx Chronic Kidney Disease: Yes Hx Dialysis: Yes Type of Dialysis Access: Left upper arm HD access Date of Last Dialysis Treatment: 06/20/17 Hx Renal Failure: Yes - ENDOCRINE/METABOLIC Hx Endocrine Disorders: Yes Hx Diabetes Mellitus Type 2: Yes Hx Hypothyroidism: Yes - HEMATOLOGICAL/ONCOLOGICAL Hx Blood Disorders: Yes Hx Anemia: Yes (BLOOD TRANSFUSION-ACCIDENTAL DISLODGEMENT OF NEEDLE TO SHUNT LOST 2 L OF BL) Hx Blood Transfusions: Yes Hx Blood Transfusion Reaction: No - INTEGUMENTARY Hx Dermatological Problems: Yes Other/Comment: dry itchy skin - MUSCULOSKELETAL/RHEUMATOLOGICAL Hx Musculoskeletal Disorders: Yes Hx Arthritis: Yes Hx Back Pain: Yes Hx Falls: Yes (in the past) Hx Unsteady Gait: Yes (uses cane) - GASTROINTESTINAL Hx Gastrointestinal Disorders: Yes (ASCITES -26-15,GASTROENTERITIS) Hx Ulcer: Yes Other/Comment: CONSTIPATION, hx c dif 09/16/15, gastrointestinal ulcer - GENITOURINARY/GYNECOLOGICAL Hx Genitourinary Disorders: Yes Other/Comment: oliguria - PSYCHIATRIC Hx Psychophysiologic Disorder: No Hx Substance Use: No - SURGICAL HISTORY Hx Surgeries: Yes Hx Coronary Stent: Yes - ANESTHESIA Hx Anesthesia: Yes Hx Anesthesia Reactions: No Hx Malignant Hyperthermia: No Has any member of the family had a problem w/ anesthesia?: No Meds Allergies/Adverse Reactions: Allergies Allergy/AdvReac Type Severity Reaction Status Date / Time tetanus and diphtheria Allergy RASH Verified 12/21/15 11:29 toxoids [tetanus & diphtheria toxoids] - Medications Medications: Current Medications Albumin Human (Albumin Human 25% (12.5 Gm/50 Ml)) 12.5 gm IV ONCE [facility] Last Admin: 06/21/17 12:16 Dose: 12.5 gm Albuterol/Ipratropium (Duoneb 3 Mg/0.5 Mg (3 Ml) Ud) 3 ml IH RQ2 PRN PRN Reason: Shortness of Breath Allopurinol (Zyloprim) 100 mg PO DAILY [facility] Last Admin: 06/21/17 11:28 Dose: 100 mg Amlodipine Besylate (Norvasc) 10 mg PO DAILY [facility] Aspirin (Aspirin) 325 mg PO 0800 [facility] Last Admin: 06/21/17 07:58 Dose: 325 mg Calcium Acetate (Phoslo) 667 mg PO [facility] Carvedilol (Coreg) 3.125 mg PO 0800 [facility] Last Admin: 06/21/17 07:59 Dose: 3.125 mg Clopidogrel Bisulfate (Plavix) 75 mg PO 0800 [facility] Last Admin: 06/21/17 07:58 Dose: 75 mg Docusate Sodium (Colace) 100 mg PO BID [facility] Last Admin: 06/21/17 10:49 Dose: 100 mg Famotidine (Pepcid) 20 mg PO DAILY@0630 [facility] Last Admin: 06/21/17 07:59 Dose: 20 mg Folic Acid (Folic Acid) 1 mg PO DAILY [facility] Last Admin: 06/21/17 10:49 Dose: 1 mg Furosemide (Lasix) 80 mg PO DAILY [facility] Heparin Sodium (Porcine) (Heparin) 5,000 units SC BID [facility] Last Admin: 06/21/17 10:47 Dose: 5,000 units Piperacillin Sod/Tazobactam Sod (Zosyn 2.25 Gm Iv Premix) 2.25 gm in 50 mls @ 100 mls/hr IVPB Q6H [facility] Last Admin: 06/21/17 16:43 Dose: 100 mls/hr Insulin Human Regular (Novolin R) 0 unit SC Q6H [facility] PRN Reason: Protocol Last Admin: 06/21/17 12:00 Dose: Not Given Levothyroxine Sodium (Synthroid) 25 mcg PO 06 [facility] Last Admin: 06/21/17 06:47 Dose: 25 mcg Minoxidil (Minoxidil) 2.5 mg PO DAILY [facility] Rosuvastatin Calcium (Crestor) 5 mg PO HS [facility] Physical Exam - Constitutional Appears: Toxic, Confused, Cachectic, Chronically Ill - Head Exam Head Exam: ATRAUMATIC, NORMOCEPHALIC - Eye Exam Eye Exam: PERRL. absent: Scleral icterus - ENT Exam ENT Exam: Mucous Membranes Dry - Neck Exam Neck exam: Negative for: Lymphadenopathy - Respiratory Exam Respiratory Exam: Decreased Breath Sounds, Prolonged Expiratory Phase, Rhonchi - Cardiovascular Exam Cardiovascular Exam: Tachycardia, REGULAR RHYTHM, +S1, +S2 - GI/Abdominal Exam GI & Abdominal Exam: Diminished Bowel Sounds, Soft. absent: Mass, Rebound, Rigid, Tenderness - Rectal Exam Rectal Exam: Deferred - Exam Exam: NORMAL INSPECTION - Extremities Exam Extremities exam: Positive for: pedal pulses present. Negative for: calf tenderness, normal inspection, pedal edema, tenderness - Back Exam Back exam: absent: CVA tenderness (L), CVA tenderness (R) - Neurological Exam Neurological exam: Altered - Psychiatric Exam Psychiatric exam: Depressed - Skin Skin Exam: Dry Results - Vital Signs Recent Vital Signs: Last Vital Signs Temp 98.7 F 06/21/17 16:00 Pulse 81 06/21/17 16:00 Resp 20 06/21/17 16:00 BP 162/61 H 06/21/17 16:00 Pulse Ox 100 06/21/17 16:00 - Labs Result Diagrams: 06/21/17 07:07 06/21/17 07:07 Labs: Laboratory Results - last 24 hr 06/20/17 06/20/17 06/21/17 18:52 21:09 05:59 WBC RBC Hgb Hct MCV MCH MCHC RDW Plt Count MPV Neut % (Auto) Lymph % (Auto) [place] % (Auto) Eos % (Auto) Baso % (Auto) Neut # Lymph # [place] # Eos # Baso # Neutrophils % (Manual) Band Neutrophils % Lymphocytes % (Manual) Monocytes % (Manual) Eosinophils % (Manual) Platelet Estimate Large Platelets Anisocytosis (manual) Ovalocytes PT INR APTT Puncture Site pCO2 pO2 HCO3 ABG pH ABG Total CO2 ABG O2 Saturation ABG Base Excess Juan Test ABG Potassium A-a O2 Difference Respiratory Index Glucose Lactate Vent Mode Mechanical Rate FiO2 Tidal Volume PEEP Sodium Potassium Chloride Carbon Dioxide Anion Gap BUN Creatinine Est GFR ( Amer) Est GFR (Non-Af Amer) POC Glucose (mg/dL) 103 118 H 144 H Random Glucose Calcium Phosphorus Magnesium Total Bilirubin AST ALT Alkaline Phosphatase Troponin I Total Protein Albumin Globulin Albumin/Globulin Ratio Arterial Blood Potassium 06/21/17 06/21/17 06/21/17 07:07 07:07 07:07 WBC 8.3 RBC 3.80 L Hgb 11.3 L Hct 34.8 L MCV 91.6 MCH 29.7 MCHC 32.4 L RDW 17.8 H Plt Count 163 MPV 9.1 Neut % (Auto) 85.1 H Lymph % (Auto) 8.5 L [place] % (Auto) 6.0 Eos % (Auto) 0.1 Baso % (Auto) 0.3 Neut # 7.1 H Lymph # 0.7 L [place] # 0.5 Eos # 0.0 Baso # 0.0 Neutrophils % (Manual) 75 Band Neutrophils % 15 H* Lymphocytes % (Manual) 3 L Monocytes % (Manual) 6 Eosinophils % (Manual) 1 Platelet Estimate Normal Large Platelets Present Anisocytosis (manual) Slight Ovalocytes Slight PT 11.4 INR 1.0 APTT 46 H Puncture Site pCO2 pO2 HCO3 ABG pH ABG Total CO2 ABG O2 Saturation ABG Base Excess Juan Test ABG Potassium A-a O2 Difference Respiratory Index Glucose Lactate Vent Mode Mechanical Rate FiO2 Tidal Volume PEEP Sodium 143 Potassium 3.1 L Chloride 98 Carbon Dioxide 28 Anion Gap 21 H BUN 29 H Creatinine 3.9 H Est GFR ( Amer) 19 Est GFR (Non-Af Amer) 16 POC Glucose (mg/dL) Random Glucose 144 H Calcium 8.7 Phosphorus 6.1 H Magnesium 2.1 Total Bilirubin 1.6 H AST 20 ALT 19 L D Alkaline Phosphatase 165 H Troponin I 0.0710 Total Protein 7.7 Albumin 3.7 Globulin 4.1 H Albumin/Globulin Ratio 0.9 L Arterial Blood Potassium 06/21/17 06/21/17 08:14 12:14 WBC RBC Hgb Hct MCV MCH MCHC RDW Plt Count MPV Neut % (Auto) Lymph % (Auto) [place] % (Auto) Eos % (Auto) Baso % (Auto) Neut # Lymph # [place] # Eos # Baso # Neutrophils % (Manual) Band Neutrophils % Lymphocytes % (Manual) Monocytes % (Manual) Eosinophils % (Manual) Platelet Estimate Large Platelets Anisocytosis (manual) Ovalocytes PT INR APTT Puncture Site Rba pCO2 58 H pO2 376 H HCO3 27.5 ABG pH 7.33 L ABG Total CO2 32.4 H ABG O2 Saturation 99.0 H ABG Base Excess 3.2 H Juan Test Na ABG Potassium 3.8 A-a O2 Difference 265.0 Respiratory Index 0.7 Glucose 153 H Lactate 1.0 Vent Mode Prvc Mechanical Rate 20 FiO2 100.0 Tidal Volume 500 PEEP 5 Sodium 141.0 Potassium Chloride 105.0 Carbon Dioxide Anion Gap BUN Creatinine Est GFR ( Amer) Est GFR (Non-Af Amer) POC Glucose (mg/dL) 90 Random Glucose Calcium Phosphorus Magnesium Total Bilirubin AST ALT Alkaline Phosphatase Troponin I Total Protein Albumin Globulin Albumin/Globulin Ratio Arterial Blood Potassium 3.8 Assessment & Plan - Assessment and Plan (Free Text) Assessment: sepsis esrd resp failure await cultures IV antibiotics ordered
--- NOTE | 2017-06-21 17:45 | CP.PCM.PN ---
Subjective - Date & Time of Evaluation Date of Evaluation: 06/21/17 Time of Evaluation: 12:20 - Subjective Subjective: clinically same Objective - Vital Signs/Intake and Output Vital Signs (last 24 hours): Temp Pulse Resp BP Pulse Ox 98.7 F 81 20 162/61 H 100 06/21/17 16:00 06/21/17 16:00 06/21/17 16:00 06/21/17 16:00 06/21/17 16:00 Intake and Output: 06/21/17 06/21/17 06:59 18:59 Intake Total 120 450 Output Total 0 Balance 120 450 - Medications Medications: Current Medications Albumin Human (Albumin Human 25% (12.5 Gm/50 Ml)) 12.5 gm IV ONCE [facility] Last Admin: 06/21/17 12:16 Dose: 12.5 gm Albuterol/Ipratropium (Duoneb 3 Mg/0.5 Mg (3 Ml) Ud) 3 ml IH RQ2 PRN PRN Reason: Shortness of Breath Allopurinol (Zyloprim) 100 mg PO DAILY [facility] Last Admin: 06/21/17 11:28 Dose: 100 mg Amlodipine Besylate (Norvasc) 10 mg PO DAILY [facility] Aspirin (Aspirin) 325 mg PO 0800 [facility] Last Admin: 06/21/17 07:58 Dose: 325 mg Calcium Acetate (Phoslo) 667 mg PO WM [facility] Carvedilol (Coreg) 3.125 mg PO 0800 [facility] Last Admin: 06/21/17 07:59 Dose: 3.125 mg Clopidogrel Bisulfate (Plavix) 75 mg PO 0800 [facility] Last Admin: 06/21/17 07:58 Dose: 75 mg Docusate Sodium (Colace) 100 mg PO BID [facility] Last Admin: 06/21/17 10:49 Dose: 100 mg Famotidine (Pepcid) 20 mg PO DAILY@0630 [facility] Last Admin: 06/21/17 07:59 Dose: 20 mg Folic Acid (Folic Acid) 1 mg PO DAILY [facility] Last Admin: 06/21/17 10:49 Dose: 1 mg Furosemide (Lasix) 80 mg PO DAILY [facility] Heparin Sodium (Porcine) (Heparin) 5,000 units SC BID [facility] Last Admin: 06/21/17 10:47 Dose: 5,000 units Piperacillin Sod/Tazobactam Sod (Zosyn 2.25 Gm Iv Premix) 2.25 gm in 50 mls @ 100 mls/hr IVPB Q6H [facility] Last Admin: 06/21/17 16:43 Dose: 100 mls/hr Insulin Human Regular (Novolin R) 0 unit SC Q6H [facility] PRN Reason: Protocol Last Admin: 06/21/17 12:00 Dose: Not Given Levothyroxine Sodium (Synthroid) 25 mcg PO 0630 [facility] Last Admin: 06/21/17 06:47 Dose: 25 mcg Minoxidil (Minoxidil) 2.5 mg PO DAILY [facility] Rosuvastatin Calcium (Crestor) 5 mg PO HS [facility] - Labs Labs: 06/21/17 07:07 06/21/17 07:07 PT 11.4 SECONDS (9.7-12.2) 06/21/17 07:07 INR 1.0 06/21/17 07:07 APTT 46 SECONDS (21-34) H 06/21/17 07:07
--- NOTE | 2017-06-21 17:58 | CT ---
PROCEDURE: CT HEAD WITHOUT CONTRAST. HISTORY: r/o stroke COMPARISON: None available. TECHNIQUE: Axial computed tomography images were obtained through the head/brain without intravenous contrast. Radiation dose: Total exam DLP = 1428.58 mGy-cm. This CT exam was performed using one or more of the following dose reduction techniques: Automated exposure control, adjustment of the mA and/or kV according to patient size, and/or use of iterative reconstruction technique. FINDINGS: Partially imaged endotracheal tube and nasogastric tube. HEMORRHAGE: No intracranial hemorrhage. BRAIN: Diffuse atrophy with prominence of the ventricles and sulci noted. No mass effect or edema. Dense intracranial atherosclerosis. Scattered periventricular and subcortical white matter hypodensities, which are nonspecific, but often seen with chronic microvascular ischemic disease. Please note that MRI with diffusion imaging is more sensitive in the detection of acute ischemic event. VENTRICLES: No hydrocephalus. CALVARIUM: Unremarkable. PARANASAL SINUSES: Unremarkable as visualized. No significant inflammatory changes. MASTOID AIR CELLS: Unremarkable as visualized. No inflammatory changes. OTHER FINDINGS: None. IMPRESSION: Generalized atrophy. Nonspecific white matter changes.
--- NOTE | 2017-06-21 19:39 | CP.PCM.CON ---
History of Present Illness - History of Present Illness History of Present Illness: Patient seen and evaluated Intubated due to respiratory failure Hemodynamically stable Review of Systems - Review of Systems Review of Systems: Patient intubated Past Patient History - Infectious Disease Hx of Infectious Diseases: None - Tetanus Immunizations Tetanus Immunization: Unknown - Past Medical History & Family History Past Medical History?: Yes - Past Social History Smoking Status: Never Smoked - CARDIAC Hx Cardiac Disorders: Yes Hx Congestive Heart Failure: Yes Hx Hypercholesterolemia: Yes Hx Hypertension: Yes - PULMONARY Hx Respiratory Disorders: Yes Hx Chronic Obstructive Pulmonary Disease (COPD): Yes Hx Pneumonia: Yes - NEUROLOGICAL Hx Neurological Disorder: Yes Hx Transient Ischemic Attacks (TIA): Yes - HEENT Hx HEENT Problems: Yes (WEARS RX GLASSES) Hx Cataracts: Yes (RIGHT EYE) Other/Comment: left strabismus - RENAL Hx Chronic Kidney Disease: Yes Hx Dialysis: Yes Type of Dialysis Access: Left upper arm HD access Date of Last Dialysis Treatment: 06/20/17 Hx Renal Failure: Yes - ENDOCRINE/METABOLIC Hx Endocrine Disorders: Yes Hx Diabetes Mellitus Type 2: Yes Hx Hypothyroidism: Yes - HEMATOLOGICAL/ONCOLOGICAL Hx Blood Disorders: Yes Hx Anemia: Yes (BLOOD TRANSFUSION-ACCIDENTAL DISLODGEMENT OF NEEDLE TO SHUNT LOST 2 L OF BL) Hx Blood Transfusions: Yes Hx Blood Transfusion Reaction: No - INTEGUMENTARY Hx Dermatological Problems: Yes Other/Comment: dry itchy skin - MUSCULOSKELETAL/RHEUMATOLOGICAL Hx Musculoskeletal Disorders: Yes Hx Arthritis: Yes Hx Back Pain: Yes Hx Falls: Yes (in the past) Hx Unsteady Gait: Yes (uses cane) - GASTROINTESTINAL Hx Gastrointestinal Disorders: Yes (ASCITES -26-15,GASTROENTERITIS) Hx Ulcer: Yes Other/Comment: CONSTIPATION, hx c dif 09/16/15, gastrointestinal ulcer - GENITOURINARY/GYNECOLOGICAL Hx Genitourinary Disorders: Yes Other/Comment: oliguria - PSYCHIATRIC Hx Psychophysiologic Disorder: No Hx Substance Use: No - SURGICAL HISTORY Hx Surgeries: Yes Hx Coronary Stent: Yes - ANESTHESIA Hx Anesthesia: Yes Hx Anesthesia Reactions: No Hx Malignant Hyperthermia: No Has any member of the family had a problem w/ anesthesia?: No Meds Allergies/Adverse Reactions: Allergies Allergy/AdvReac Type Severity Reaction Status Date / Time tetanus and diphtheria Allergy RASH Verified 12/21/15 11:29 toxoids [tetanus & diphtheria toxoids] - Medications Medications: Current Medications Albumin Human (Albumin Human 25% (12.5 Gm/50 Ml)) 12.5 gm IV ONCE [facility] Last Admin: 06/21/17 12:16 Dose: 12.5 gm Albuterol/Ipratropium (Duoneb 3 Mg/0.5 Mg (3 Ml) Ud) 3 ml IH RQ2 PRN PRN Reason: Shortness of Breath Allopurinol (Zyloprim) 100 mg PO DAILY [facility] Last Admin: 06/21/17 11:28 Dose: 100 mg Amlodipine Besylate (Norvasc) 10 mg PO DAILY [facility] Last Admin: 06/21/17 18:01 Dose: Not Given Aspirin (Aspirin) 325 mg PO 0800 [facility] Last Admin: 06/21/17 07:58 Dose: 325 mg Calcium Acetate (Phoslo) 667 mg PO [facility] Carvedilol (Coreg) 3.125 mg PO 0800 [facility] Last Admin: 06/21/17 07:59 Dose: 3.125 mg Clopidogrel Bisulfate (Plavix) 75 mg PO 0800 [facility] Last Admin: 06/21/17 07:58 Dose: 75 mg Docusate Sodium (Colace) 100 mg PO BID [facility] Last Admin: 06/21/17 17:57 Dose: Not Given Famotidine (Pepcid) 20 mg PO DAILY@0630 [facility] Last Admin: 06/21/17 07:59 Dose: 20 mg Folic Acid (Folic Acid) 1 mg PO DAILY [facility] Last Admin: 06/21/17 10:49 Dose: 1 mg Furosemide (Lasix) 80 mg PO DAILY [facility] Last Admin: 06/21/17 18:00 Dose: Not Given Heparin Sodium (Porcine) (Heparin) 5,000 units SC BID [facility] Last Admin: 06/21/17 17:57 Dose: 5,000 units Piperacillin Sod/Tazobactam Sod (Zosyn 2.25 Gm Iv Premix) 2.25 gm in 50 mls @ 100 mls/hr IVPB Q6H [facility] Last Admin: 06/21/17 16:43 Dose: 100 mls/hr Insulin Human Regular (Novolin R) 0 unit SC Q6H [facility] PRN Reason: Protocol Last Admin: 06/21/17 17:58 Dose: Not Given Levothyroxine Sodium (Synthroid) 25 mcg PO 0630 [facility] Last Admin: 06/21/17 06:47 Dose: 25 mcg Minoxidil (Minoxidil) 2.5 mg PO DAILY [facility] Last Admin: 06/21/17 18:01 Dose: Not Given Rosuvastatin Calcium (Crestor) 5 mg PO [facility] Physical Exam - Head Exam Head Exam: ATRAUMATIC - ENT Exam ENT Exam: Mucous Membranes Moist - Respiratory Exam Respiratory Exam: Decreased Breath Sounds - Cardiovascular Exam Cardiovascular Exam: REGULAR RHYTHM - GI/Abdominal Exam GI & Abdominal Exam: Normal Bowel Sounds, Soft - Neurological Exam Additional comments: Intubated Results - Vital Signs Recent Vital Signs: Last Vital Signs Temp 98.7 F 06/21/17 16:00 Pulse 75 06/21/17 19:00 Resp 20 06/21/17 19:00 BP 110/44 L 06/21/17 19:00 Pulse Ox 100 06/21/17 19:00 - Labs Result Diagrams: 06/22/17 06:18 06/22/17 06:18 Labs: Laboratory Results - last 24 hr 06/20/17 06/21/17 06/21/17 21:09 05:59 07:07 WBC 8.3 RBC 3.80 L Hgb 11.3 L Hct 34.8 L MCV 91.6 MCH 29.7 MCHC 32.4 L RDW 17.8 H Plt Count 163 MPV 9.1 Neut % (Auto) 85.1 H Lymph % (Auto) 8.5 L Taney % (Auto) 6.0 Eos % (Auto) 0.1 Baso % (Auto) 0.3 Neut # 7.1 H Lymph # 0.7 L Taney # 0.5 Eos # 0.0 Baso # 0.0 Neutrophils % (Manual) 75 Band Neutrophils % 15 H* Lymphocytes % (Manual) 3 L Monocytes % (Manual) 6 Eosinophils % (Manual) 1 Platelet Estimate Normal Large Platelets Present Anisocytosis (manual) Slight Ovalocytes Slight PT INR APTT Puncture Site pCO2 pO2 HCO3 ABG pH ABG Total CO2 ABG O2 Saturation ABG Base Excess Juan Test ABG Potassium A-a O2 Difference Respiratory Index Glucose Lactate Vent Mode Mechanical Rate FiO2 Tidal Volume PEEP Sodium Potassium Chloride Carbon Dioxide Anion Gap BUN Creatinine Est GFR ( Amer) Est GFR (Non-Af Amer) POC Glucose (mg/dL) 118 H 144 H Random Glucose Calcium Phosphorus Magnesium Total Bilirubin AST ALT Alkaline Phosphatase Troponin I Total Protein Albumin Globulin Albumin/Globulin Ratio Arterial Blood Potassium 06/21/17 06/21/17 06/21/17 07:07 07:07 08:14 WBC RBC Hgb Hct MCV MCH MCHC RDW Plt Count MPV Neut % (Auto) Lymph % (Auto) Taney % (Auto) Eos % (Auto) Baso % (Auto) Neut # Lymph # Taney # Eos # Baso # Neutrophils % (Manual) Band Neutrophils % Lymphocytes % (Manual) Monocytes % (Manual) Eosinophils % (Manual) Platelet Estimate Large Platelets Anisocytosis (manual) Ovalocytes PT 11.4 INR 1.0 APTT 46 H Puncture Site Rba pCO2 58 H pO2 376 H HCO3 27.5 ABG pH 7.33 L ABG Total CO2 32.4 H ABG O2 Saturation 99.0 H ABG Base Excess 3.2 H Juan Test Na ABG Potassium 3.8 A-a O2 Difference 265.0 Respiratory Index 0.7 Glucose 153 H Lactate 1.0 Vent Mode Prvc Mechanical Rate 20 FiO2 100.0 Tidal Volume 500 PEEP 5 Sodium 143 141.0 Potassium 3.1 L Chloride 98 105.0 Carbon Dioxide 28 Anion Gap 21 H BUN 29 H Creatinine 3.9 H Est GFR ( Amer) 19 Est GFR (Non-Af Amer) 16 POC Glucose (mg/dL) Random Glucose 144 H Calcium 8.7 Phosphorus 6.1 H Magnesium 2.1 Total Bilirubin 1.6 H AST 20 ALT 19 L D Alkaline Phosphatase 165 H Troponin I 0.0710 Total Protein 7.7 Albumin 3.7 Globulin 4.1 H Albumin/Globulin Ratio 0.9 L Arterial Blood Potassium 3.8 06/21/17 06/21/17 12:14 17:52 WBC RBC Hgb Hct MCV MCH MCHC RDW Plt Count MPV Neut % (Auto) Lymph % (Auto) Taney % (Auto) Eos % (Auto) Baso % (Auto) Neut # Lymph # Taney # Eos # Baso # Neutrophils % (Manual) Band Neutrophils % Lymphocytes % (Manual) Monocytes % (Manual) Eosinophils % (Manual) Platelet Estimate Large Platelets Anisocytosis (manual) Ovalocytes PT INR APTT Puncture Site pCO2 pO2 HCO3 ABG pH ABG Total CO2 ABG O2 Saturation ABG Base Excess Juan Test ABG Potassium A-a O2 Difference Respiratory Index Glucose Lactate Vent Mode Mechanical Rate FiO2 Tidal Volume PEEP Sodium Potassium Chloride Carbon Dioxide Anion Gap BUN Creatinine Est GFR ( Amer) Est GFR (Non-Af Amer) POC Glucose (mg/dL) 90 93 Random Glucose Calcium Phosphorus Magnesium Total Bilirubin AST ALT Alkaline Phosphatase Troponin I Total Protein Albumin Globulin Albumin/Globulin Ratio Arterial Blood Potassium Assessment & Plan - Assessment and Plan (Free Text) Assessment: 1. Respiratory failure on Mech ventilation 2. COPD 3. HTN 4. CKD on HD Check ECHO and will monitor
[2017-06-22] MEDS: (Novolin R) Insulin Human Regular 100 units/ml vial SC SCH ×4 (00:46→18:14)
[2017-06-22] MEDS: Piperacill/Tazo 2.25gm in Dex 2.25 GM/50 ML BAG IVPB SCH ×4 (04:58→22:35)
[2017-06-22 05:33] LABS: ABG MECHANICAL RATE 20; ARTERIAL BLOOD GAS MODE PRVC; ARTERIAL BLOOD HGB O2 SAT 92.8 % (95.0-98.0); ATERIAL BLOOD GAS PEEP 5; DRAW SITE RB; HHB 1.1 % (0.0-5.0); METHEMOGLOBIN 2.1 % (0.0-3.0)
[2017-06-22 06:34] LABS: BASO % 0.3 % (0.0-2.0); EOS # 0.1 K/uL (0.0-0.7); EOS % 1.5 % (0.0-4.0); HEMATOCRIT 31.5 % (35.0-51.0); LYMPH # 0.5 K/uL (1.0-4.3); LYMPH % 6.7 % (20.0-40.0); MEAN CELL VOLUME 89.6 fL (80.0-94.0); MEAN CORPUSCULAR HEMOGLOBIN 29.5 pg (27.0-31.0); MEAN CORPUSCULAR HGB CONC 32.9 g/dL (33.0-37.0); MEAN PLATELET VOLUME 8.7 fL (7.2-11.7); MONO # 0.8 K/uL (0.0-0.8); MONO % 11.4 % (0.0-10.0); PLATELET COUNT 156 K/uL (130-400); RED CELL DISTRIBUTION WIDTH 16.2 % (11.5-14.5); WHITE BLOOD COUNT 7.2 K/uL (4.8-10.8)
[2017-06-22] MEDS: Levothyroxine 25 MCG TAB PO SCH (06:34)
[2017-06-22 07:16] LABS: ALB/GLOB RATIO 0.7 (1.0-2.1); BILIRUBIN,TOTAL 0.9 mg/dL (0.2-1.3); CALCIUM 8.9 mg/dl (8.6-10.4); MAGNESIUM 1.9 mg/dL (1.6-2.3); POTASSIUM 3.7 mmol/L (3.6-5.2); TOTAL PROTEIN 7.7 g/dL (6.3-8.3)
--- NOTE | 2017-06-22 08:31 | RAD ---
Chest x-ray single frontal view History: Intubated. Comparison: 06/21/2017 Findings: Lines and tubes in stable position. Prominent diffuse increased interstitial lung markings. Biapical pleural thickening with upper lobe granulomatous changes. Bilateral hilar prominence. Increased consolidative changes in the right infrahilar region. Question trace left pleural effusion. Cardiomegaly. Degenerative changes in the spine and shoulders. Impression: No significant interval change.
[2017-06-22 08:38] LABS: BASOPHIL 1 % (0-2); EOSINOPHIL 1 % (0-4); NEUTROPHIL 71 % (50-75); TOTAL CELLS COUNTED 100
[2017-06-22] MEDS ORDERED: metOLazone 5 MG TAB PO ONE (12:30)
--- NOTE | 2017-06-22 13:13 | CP.PCM.PN ---
Subjective - Date & Time of Evaluation Date of Evaluation: 06/22/17 Time of Evaluation: 09:35 - Subjective Subjective: the patient seen and examined in the intensive care unit Remains intubated on ventilatory support Sedated but responds by opening eyes Afebrile Status post hemodialysis Objective - Vital Signs/Intake and Output Vital Signs (last 24 hours): Temp Pulse Resp BP Pulse Ox 97.9 F 75 20 144/63 100 06/22/17 08:00 06/22/17 09:00 06/22/17 09:00 06/22/17 09:00 06/22/17 09:00 Intake and Output: 06/22/17 06/22/17 06:59 18:59 Intake Total 100 0 Output Total 0 200 Balance 100 -200 - Medications Medications: Current Medications Albumin Human (Albumin Human 25% (12.5 Gm/50 Ml)) 12.5 gm IV ONCE [facility] Last Admin: 06/21/17 12:16 Dose: 12.5 gm Albuterol/Ipratropium (Duoneb 3 Mg/0.5 Mg (3 Ml) Ud) 3 ml IH RQ2 PRN PRN Reason: Shortness of Breath Allopurinol (Zyloprim) 100 mg PO DAILY [facility] Last Admin: 06/22/17 09:56 Dose: 100 mg Amlodipine Besylate (Norvasc) 10 mg PO DAILY [facility] Last Admin: 06/22/17 09:56 Dose: 10 mg Aspirin (Aspirin) 325 mg PO 0800 [facility] Last Admin: 06/22/17 09:56 Dose: 325 mg Bisacodyl (Dulcolax) 10 mg NM DAILY PRN PRN Reason: Constipation Last Admin: 06/22/17 10:45 Dose: 10 mg Calcium Acetate (Phoslo) 667 [facility] Carvedilol (Coreg) 6.25 mg PO 0800 [facility] Last Admin: 06/22/17 10:44 Dose: 6.25 mg Clopidogrel Bisulfate (Plavix) 75 mg PO 0800 [facility] Last Admin: 06/22/17 09:56 Dose: 75 mg Docusate Sodium (Colace) 100 mg PO BID [facility] Last Admin: 06/22/17 09:56 Dose: 100 mg Famotidine (Pepcid) 20 mg IVP DAILY [facility] Last Admin: 06/22/17 09:57 Dose: 20 mg Folic Acid (Folic Acid) 1 mg PO DAILY [facility] Last Admin: 06/22/17 09:56 Dose: 1 mg Heparin Sodium (Porcine) (Heparin) 5,000 units SC BID [facility] Last Admin: 06/22/17 09:55 Dose: 5,000 units Piperacillin Sod/Tazobactam Sod (Zosyn 2.25 Gm Iv Premix) 2.25 gm in 50 mls @ 100 mls/hr IVPB Q6H [facility] Last Admin: 06/22/17 09:59 Dose: 100 mls/hr Insulin Human Regular (Novolin R) 0 unit SC Q6H [facility] PRN Reason: Protocol Last Admin: 06/22/17 06:55 Dose: Not Given Levothyroxine Sodium (Synthroid) 25 mcg PO 0630 [facility] Last Admin: 06/22/17 06:34 Dose: Not Given Minoxidil (Minoxidil) 2.5 mg PO DAILY [facility] Last Admin: 06/21/17 18:01 Dose: Not Given Rosuvastatin Calcium (Crestor) 5 mg PO HS [facility] Last Admin: 06/21/17 21:11 Dose: Not Given - Labs Labs: 06/22/17 06:18 06/22/17 06:18 PT 11.4 SECONDS (9.7-12.2) 06/21/17 07:07 INR 1.0 06/21/17 07:07 APTT 46 SECONDS (21-34) H 06/21/17 07:07 - Head Exam Head Exam: ATRAUMATIC, NORMOCEPHALIC - ENT Exam ENT Exam: Mucous Membranes Moist - Respiratory Exam Respiratory Exam: Decreased Breath Sounds - Cardiovascular Exam Cardiovascular Exam: REGULAR RHYTHM - GI/Abdominal Exam GI & Abdominal Exam: Soft, Normal Bowel Sounds - Extremities Exam Extremities Exam: Normal Inspection Assessment and Plan (1) Acute respiratory failure Assessment & Plan: Continue ventilatory support and wean as tolerated continue antibiotics Hemodialysis Feeding Seen by cardiology Status: Acute (2) Pneumonia Status: Acute (3) ESRD (end stage renal disease) on dialysis Status: Chronic
--- NOTE | 2017-06-22 15:07 | CP.CCUPN ---
<Umang Ryan - Last Filed: 06/22/17 15:03> CCU Subjective - Physician Review Subjective (Free Text): PGY1 ICU progress note for Dr. Megan Hernandez Patient seen and examined this morning at bedside. Patient is intubated. ROS unattainable. Patient is much more away today. He is able to follow commands such as lifting correct arm when asked. CCU Objective - Vital Signs / Intake & Output Intake and Output (Last 8hrs): Intake & Output 06/22/17 06/22/17 06/22/17 06:59 14:59 22:59 Intake Total 50 0 Output Total 200 Balance 50 -200 Intake: Intake, IV Amount 50 Left Internal Jugular 50 Oral 0 0 Output: Gastric Amount 200 Nares 200 Other: # Voids Urethral ([place]) 0 1 # Bowel Movements 0 0 - Physical Exam Head: Positive for: Atraumatic, Normocephalic Pupils: Positive for: Pinpoint, Other (patient fighting against light in eye. ) Extroacular Muscles: Positive for: EOMI Conjunctiva: Positive for: Icteric Mouth: Positive for: Other (intubated) Respiratory/Chest: Positive for: Decreased Breath Sounds Cardiovascular: Positive for: Regular Rate and Rhythm Abdomen: Positive for: Hernias (ventral). Negative for: Tenderness, Distention , Peritoneal Signs Upper Extremity: Positive for: Edema Lower Extremity: Positive for: Edema Neurological: Positive for: Other (intubated) Skin: Positive for: Warm, Dry Psychiatric: Positive for: Alert, Other (intubated) - Medications Active Medications: Active Medications Generic Name Dose Route Start Last Admin Trade Name Freq PRN Reason Stop Dose Admin Albumin Human 12.5 gm 06/21/17 10:30 06/21/17 12:16 Albumin Human 25% (12.5 Gm/50 Ml) IV 12.5 gm ONCE [facility] Administration Albuterol/Ipratropium 3 ml 06/20/17 23:18 Duoneb 3 Mg/0.5 Mg (3 Ml) Ud IH RQ2 PRN Shortness of Breath Allopurinol 100 mg 06/21/17 10:00 06/22/17 09:56 Zyloprim PO 100 mg DAILY [facility] Administration Amlodipine Besylate 10 mg 06/21/17 10:00 06/22/17 09:56 Norvasc PO 10 mg DAILY [facility] Administration Aspirin 325 mg 06/21/17 08:00 06/22/17 09:56 Aspirin PO 325 mg 0800 [facility] Administration Bisacodyl 10 mg 06/22/17 09:42 06/22/17 10:45 Dulcolax SC 10 mg DAILY PRN Administration Constipation Calcium Acetate 667 mg 06/20/17 23:30 Phoslo PO WM [facility] Carvedilol 6.25 mg 06/22/17 10:45 06/22/17 10:44 Coreg PO 6.25 mg 0800 [facility] Administration Clopidogrel Bisulfate 75 mg 06/21/17 08:00 06/22/17 09:56 Plavix PO 75 mg 0800 [facility] Administration Docusate Sodium 100 mg 06/21/17 10:00 06/22/17 09:56 Colace PO 100 mg BID [facility] Administration Famotidine 20 mg 06/22/17 10:00 06/22/17 09:57 Pepcid IVP 20 mg DAILY [facility] Administration Folic Acid 1 mg 06/21/17 10:00 06/22/17 09:56 Folic Acid PO 1 mg DAILY [facility] Administration Heparin Sodium (Porcine) 5,000 units 06/21/17 10:00 06/22/17 09:55 Heparin SC 5,000 units BID [facility] Administration Piperacillin Sod/Tazobactam Sod 2.25 gm in 50 mls @ 100 mls/hr 06/21/17 10:30 06/22/17 09:59 Zosyn 2.25 Gm Iv Premix IVPB 100 mls/hr Q6H [facility] Administration Insulin Human Regular 0 unit 06/21/17 12:00 06/22/17 13:16 Novolin R SC Not Given Q6H [facility] Protocol Levothyroxine Sodium 25 mcg 06/21/17 06:30 06/22/17 06:34 Synthroid PO Not Given 0630 [facility] Minoxidil 2.5 mg 06/21/17 10:00 06/21/17 18:01 Minoxidil PO Not Given DAILY [facility] Rosuvastatin Calcium 5 mg 06/21/17 22:00 06/21/17 21:11 Crestor PO Not Given HS [facility] - Patient Studies Lab Studies: Microbiology Studies 06/20/17 10:50 Blood Culture - Preliminary Blood-Venous NO GROWTH AFTER 24 HOURS 06/20/17 09:50 Blood Culture - Preliminary Blood-Venous NO GROWTH AFTER 24 HOURS Lab Studies 06/22/17 06/22/17 06/22/17 Range/Units 11:32 06:54 06:18 WBC (4.8-10.8) K/uL RBC (4.40-5.90) Mil/uL Hgb (12.0-18.0) g/dL Hct (35.0-51.0) % MCV (80.0-94.0) fL MCH (27.0-31.0) pg MCHC (33.0-37.0) g/dL RDW (11.5-14.5) % Plt Count (130-400) K/uL MPV (7.2-11.7) fL Neut % (Auto) (50.0-75.0) % Lymph % (Auto) (20.0-40.0) % [place] % (Auto) (0.0-10.0) % Eos % (Auto) (0.0-4.0) % Baso % (Auto) (0.0-2.0) % Neut # (1.8-7.0) K/uL Lymph # (1.0-4.3) K/uL [place] # (0.0-0.8) K/uL Eos # (0.0-0.7) K/uL Baso # (0.0-0.2) K/uL Neutrophils % (Manual) (50-75) % Band Neutrophils % (0-2) % Lymphocytes % (Manual) (20-40) % Monocytes % (Manual) (0-10) % Eosinophils % (Manual) (0-4) % Basophils % (Manual) (0-2) % Platelet Estimate (NORMAL) Anisocytosis (manual) Puncture Site pCO2 (35-45) mm/Hg pO2 (80-100) mm/Hg HCO3 (21-28) mmol/L ABG pH (7.35-7.45) ABG Total CO2 (22-28) mmol/L ABG O2 Saturation (95-98) % ABG Base Excess (-2.0-3.0) mmol/L ABG Hemoglobin (11.7-17.4) g/dL ABG Carboxyhemoglobin (0.5-1.5) % POC ABG HHb (Measured) (0.0-5.0) % ABG Methemoglobin (0.0-3.0) % Juan Test A-a O2 Difference mm/Hg Respiratory Index Hgb O2 Saturation (95.0-98.0) % Vent Mode Mechanical Rate FiO2 % Tidal Volume PEEP Sodium 137 (132-148) mmol/L Potassium 3.7 (3.6-5.2) mmol/L Chloride 96 L (98-107) mmol/L Carbon Dioxide 29 (22-30) mmol/L Anion Gap 16 (10-20) BUN 26 H (9-20) mg/dL Creatinine 3.2 H (0.8-1.5) mg/dL Est GFR ( Amer) 24 Est GFR (Non-Af Amer) 20 POC Glucose (mg/dL) 104 102 (65-110) mg/dL Random Glucose 121 H (75-110) mg/dL Calcium 8.9 (8.6-10.4) mg/dl Phosphorus 2.0 L (2.5-4.5) mg/dL Magnesium 1.9 (1.6-2.3) mg/dL Total Bilirubin 0.9 (0.2-1.3) mg/dL AST 22 (17-59) U/L ALT 30 (21-72) U/L Alkaline Phosphatase 115 (38-126) U/L Total Protein 7.7 (6.3-8.3) g/dL Albumin 3.1 L (3.5-5.0) g/dL Globulin 4.6 H (2.2-3.9) gm/dL Albumin/Globulin Ratio 0.7 L (1.0-2.1) 06/22/17 06/22/17 06/22/17 Range/Units 06:18 05:23 00:02 WBC 7.2 (4.8-10.8) K/uL RBC 3.52 L (4.40-5.90) Mil/uL Hgb 10.4 L (12.0-18.0) g/dL Hct 31.5 L (35.0-51.0) % MCV 89.6 D (80.0-94.0) fL MCH 29.5 (27.0-31.0) pg MCHC 32.9 L (33.0-37.0) g/dL RDW 16.2 H (11.5-14.5) % Plt Count 156 (130-400) K/uL MPV 8.7 (7.2-11.7) fL Neut % (Auto) 80.1 H (50.0-75.0) % Lymph % (Auto) 6.7 L (20.0-40.0) % [place] % (Auto) 11.4 H (0.0-10.0) % Eos % (Auto) 1.5 (0.0-4.0) % Baso % (Auto) 0.3 (0.0-2.0) % Neut # 5.7 (1.8-7.0) K/uL Lymph # 0.5 L (1.0-4.3) K/uL [place] # 0.8 (0.0-0.8) K/uL Eos # 0.1 (0.0-0.7) K/uL Baso # 0.0 (0.0-0.2) K/uL Neutrophils % (Manual) 71 (50-75) % Band Neutrophils % 7 H (0-2) % Lymphocytes % (Manual) 9 L (20-40) % Monocytes % (Manual) 11 H (0-10) % Eosinophils % (Manual) 1 (0-4) % Basophils % (Manual) 1 (0-2) % Platelet Estimate Normal (NORMAL) Anisocytosis (manual) Slight Puncture Site Rb pCO2 40 (35-45) mm/Hg pO2 120 H (80-100) mm/Hg HCO3 27.1 (21-28) mmol/L ABG pH 7.44 (7.35-7.45) ABG Total CO2 28.4 H (22-28) mmol/L ABG O2 Saturation 98.8 H (95-98) % ABG Base Excess 2.8 (-2.0-3.0) mmol/L ABG Hemoglobin 9.2 L (11.7-17.4) g/dL ABG Carboxyhemoglobin 4.0 H (0.5-1.5) % POC ABG HHb (Measured) 1.1 (0.0-5.0) % ABG Methemoglobin 2.1 (0.0-3.0) % Juan Test Na A-a O2 Difference 187.0 mm/Hg Respiratory Index 1.6 Hgb O2 Saturation 92.8 L (95.0-98.0) % Vent Mode Prvc Mechanical Rate 20 FiO2 50.0 % Tidal Volume 500 PEEP 5 Sodium (132-148) mmol/L Potassium (3.6-5.2) mmol/L Chloride (98-107) mmol/L Carbon Dioxide (22-30) mmol/L Anion Gap (10-20) BUN (9-20) mg/dL Creatinine (0.8-1.5) mg/dL Est GFR ( Amer) Est GFR (Non-Af Amer) POC Glucose (mg/dL) 80 (65-110) mg/dL Random Glucose (75-110) mg/dL Calcium (8.6-10.4) mg/dl Phosphorus (2.5-4.5) mg/dL Magnesium (1.6-2.3) mg/dL Total Bilirubin (0.2-1.3) mg/dL AST (17-59) U/L ALT (21-72) U/L Alkaline Phosphatase (38-126) U/L Total Protein (6.3-8.3) g/dL Albumin (3.5-5.0) g/dL Globulin (2.2-3.9) gm/dL Albumin/Globulin Ratio (1.0-2.1) 06/21/17 Range/Units 17:52 WBC (4.8-10.8) K/uL RBC (4.40-5.90) Mil/uL Hgb (12.0-18.0) g/dL Hct (35.0-51.0) % MCV (80.0-94.0) fL MCH (27.0-31.0) pg MCHC (33.0-37.0) g/dL RDW (11.5-14.5) % Plt Count (130-400) K/uL MPV (7.2-11.7) fL Neut % (Auto) (50.0-75.0) % Lymph % (Auto) (20.0-40.0) % [place] % (Auto) (0.0-10.0) % Eos % (Auto) (0.0-4.0) % Baso % (Auto) (0.0-2.0) % Neut # (1.8-7.0) K/uL Lymph # (1.0-4.3) K/uL [place] # (0.0-0.8) K/uL Eos # (0.0-0.7) K/uL Baso # (0.0-0.2) K/uL Neutrophils % (Manual) (50-75) % Band Neutrophils % (0-2) % Lymphocytes % (Manual) (20-40) % Monocytes % (Manual) (0-10) % Eosinophils % (Manual) (0-4) % Basophils % (Manual) (0-2) % Platelet Estimate (NORMAL) Anisocytosis (manual) Puncture Site pCO2 (35-45) mm/Hg pO2 (80-100) mm/Hg HCO3 (21-28) mmol/L ABG pH (7.35-7.45) ABG Total CO2 (22-28) mmol/L ABG O2 Saturation (95-98) % ABG Base Excess (-2.0-3.0) mmol/L ABG Hemoglobin (11.7-17.4) g/dL ABG Carboxyhemoglobin (0.5-1.5) % POC ABG HHb (Measured) (0.0-5.0) % ABG Methemoglobin (0.0-3.0) % Juan Test A-a O2 Difference mm/Hg Respiratory Index Hgb O2 Saturation (95.0-98.0) % Vent Mode Mechanical Rate FiO2 % Tidal Volume PEEP Sodium (132-148) mmol/L Potassium (3.6-5.2) mmol/L Chloride (98-107) mmol/L Carbon Dioxide (22-30) mmol/L Anion Gap (10-20) BUN (9-20) mg/dL Creatinine (0.8-1.5) mg/dL Est GFR ( Amer) Est GFR (Non-Af Amer) POC Glucose (mg/dL) 93 (65-110) mg/dL Random Glucose (75-110) mg/dL Calcium (8.6-10.4) mg/dl Phosphorus (2.5-4.5) mg/dL Magnesium (1.6-2.3) mg/dL Total Bilirubin (0.2-1.3) mg/dL AST (17-59) U/L ALT (21-72) U/L Alkaline Phosphatase (38-126) U/L Total Protein (6.3-8.3) g/dL Albumin (3.5-5.0) g/dL Globulin (2.2-3.9) gm/dL Albumin/Globulin Ratio (1.0-2.1) Laboratory Results - last 24 hr 06/21/17 06/22/17 06/22/17 17:52 00:02 05:23 WBC RBC Hgb Hct MCV MCH MCHC RDW Plt Count MPV Neut % (Auto) Lymph % (Auto) [place] % (Auto) Eos % (Auto) Baso % (Auto) Neut # Lymph # [place] # Eos # Baso # Neutrophils % (Manual) Band Neutrophils % Lymphocytes % (Manual) Monocytes % (Manual) Eosinophils % (Manual) Basophils % (Manual) Platelet Estimate Anisocytosis (manual) Puncture Site Rb pCO2 40 pO2 120 H HCO3 27.1 ABG pH 7.44 ABG Total CO2 28.4 H ABG O2 Saturation 98.8 H ABG Base Excess 2.8 ABG Hemoglobin 9.2 L ABG Carboxyhemoglobin 4.0 H POC ABG HHb (Measured) 1.1 ABG Methemoglobin 2.1 Juan Test Na A-a O2 Difference 187.0 Respiratory Index 1.6 Hgb O2 Saturation 92.8 L Vent Mode Prvc Mechanical Rate 20 FiO2 50.0 Tidal Volume 500 PEEP 5 Sodium Potassium Chloride Carbon Dioxide Anion Gap BUN Creatinine Est GFR ( Amer) Est GFR (Non-Af Amer) POC Glucose (mg/dL) 93 80 Random Glucose Calcium Phosphorus Magnesium Total Bilirubin AST ALT Alkaline Phosphatase Total Protein Albumin Globulin Albumin/Globulin Ratio 06/22/17 06/22/17 06/22/17 06:18 06:18 06:54 WBC 7.2 RBC 3.52 L Hgb 10.4 L Hct 31.5 L MCV 89.6 D MCH 29.5 MCHC 32.9 L RDW 16.2 H Plt Count 156 MPV 8.7 Neut % (Auto) 80.1 H Lymph % (Auto) 6.7 L [place] % (Auto) 11.4 H Eos % (Auto) 1.5 Baso % (Auto) 0.3 Neut # 5.7 Lymph # 0.5 L [place] # 0.8 Eos # 0.1 Baso # 0.0 Neutrophils % (Manual) 71 Band Neutrophils % 7 H Lymphocytes % (Manual) 9 L Monocytes % (Manual) 11 H Eosinophils % (Manual) 1 Basophils % (Manual) 1 Platelet Estimate Normal Anisocytosis (manual) Slight Puncture Site pCO2 pO2 HCO3 ABG pH ABG Total CO2 ABG O2 Saturation ABG Base Excess ABG Hemoglobin ABG Carboxyhemoglobin POC ABG HHb (Measured) ABG Methemoglobin Juan Test A-a O2 Difference Respiratory Index Hgb O2 Saturation Vent Mode Mechanical Rate FiO2 Tidal Volume PEEP Sodium 137 Potassium 3.7 Chloride 96 L Carbon Dioxide 29 Anion Gap 16 BUN 26 H Creatinine 3.2 H Est GFR ( Amer) 24 Est GFR (Non-Af Amer) 20 POC Glucose (mg/dL) 102 Random Glucose 121 H Calcium 8.9 Phosphorus 2.0 L Magnesium 1.9 Total Bilirubin 0.9 AST 22 ALT 30 Alkaline Phosphatase 115 Total Protein 7.7 Albumin 3.1 L Globulin 4.6 H Albumin/Globulin Ratio 0.7 L 06/22/17 11:32 WBC RBC Hgb Hct MCV MCH MCHC RDW Plt Count MPV Neut % (Auto) Lymph % (Auto) [place] % (Auto) Eos % (Auto) Baso % (Auto) Neut # Lymph # [place] # Eos # Baso # Neutrophils % (Manual) Band Neutrophils % Lymphocytes % (Manual) Monocytes % (Manual) Eosinophils % (Manual) Basophils % (Manual) Platelet Estimate Anisocytosis (manual) Puncture Site pCO2 pO2 HCO3 ABG pH ABG Total CO2 ABG O2 Saturation ABG Base Excess ABG Hemoglobin ABG Carboxyhemoglobin POC ABG HHb (Measured) ABG Methemoglobin Juan Test A-a O2 Difference Respiratory Index Hgb O2 Saturation Vent Mode Mechanical Rate FiO2 Tidal Volume PEEP Sodium Potassium Chloride Carbon Dioxide Anion Gap BUN Creatinine Est GFR ( Amer) Est GFR (Non-Af Amer) POC Glucose (mg/dL) 104 Random Glucose Calcium Phosphorus Magnesium Total Bilirubin AST ALT Alkaline Phosphatase Total Protein Albumin Globulin Albumin/Globulin Ratio Fingerstick Blood Sugar Results: 102 Review of Systems - Review of Systems Systems not reviewed;Unavailable: Intubated Critical Care Progress Note - Nutrition Nutrition: Nutrition Category Date Time Status Renal Diet [DIET] Diets 06/21/17 Breakfast Active Assessment/Plan - Assessment and Plan (Free Text) Assessment: 61-year-old male with a history of diabetes hypertension COPD, end-stage renal disease on dialysis, coronary disease s/p stenting, admitted with shortness of breath, complicated by bradycardia, respiratory arrest status post intubation. Plan: Pulmonary: Dr. Sweet consulted, help appreciated COPD s/p respiratory arrest (06/21) - intubated Extubated on 06/22 ABG (morning prior to extubation) - pCO2 40, pO2 120, HCO3 27.1, pH 7.44, vent settings 500/50/20/5 CXR 06/22 - Prominent diffuse increased interstitial lung markings. Biapical pleural thickening with upper lobe granulomatous changes. Bilateral hilar prominence. Increased consolidative changes in the right infrahilar region. Question trace left pleural effusion. Cardiomegaly. Degenerative changes in the spine and shoulders. Duoneb 3mL IH q2h PRN CV: Dr. Hoffmann consulted, help appreciated CHF HTN CAD s/p stenting f/u ECHO - awaiting official report amlodipine 10mg PO daily aspirin 10 mg PO daily Carvedilol 6.25mg PO daily Plavix 75mg PO daily crestor 4mg PO HS Neuro: Head CT 06/21 - Generalized atrophy. Nonspecific white matter changes. Renal: ESRD - dialysis TTS received dialysis yesterday Calcium Acetate 667mg PO WM ID: Dr. Hilton consulted, help appreciated WBC 7.2 (was 8.3 on 06/21) ; bandemia 7 (was 15 on 06/21) Zosyn 2.25mg IVPB q6h Vanco 1gm IVPB once Blood cultures negative at 48 hours x 2 days Prophylactic Care: Colace 100mg PO BID Dulcolax 10mg SC daily PRN Pepcid 20mg IVP daily Heparin 5000units SC BID Case discussed with Dr. Megan Ryan PGY1 <Daniella Hernandez - Last Filed: 06/22/17 18:27> CCU Subjective - Physician Review Critical Care Time Spent (in minutes): 35 CCU Objective - Vital Signs / Intake & Output Vital Signs (Last 4 hours): Vital Signs Temp Pulse Resp BP Pulse Ox 06/22/17 18:00 91 H 30 H 145/65 98 06/22/17 17:00 88 28 H 149/70 98 06/22/17 16:00 97.1 F L 88 32 H 161/68 H 97 06/22/17 15:00 87 36 H 158/62 H 98 Intake and Output (Last 8hrs): Intake & Output 06/22/17 06/22/17 06/22/17 06:59 14:59 22:59 Intake Total 50 110 60 Output Total 250 Balance 50 -140 60 Intake: Intake, IV Amount 50 50 Left Internal Jugular 50 50 Oral 0 60 60 Output: Gastric Amount 250 Nares 250 Other: # Voids Urethral ([place]) 0 0 # Bowel Movements 0 1 1 - Medications Active Medications: Active Medications Generic Name Dose Route Start Last Admin Trade Name Freq PRN Reason Stop Dose Admin Albumin Human 12.5 gm 06/21/17 10:30 06/21/17 12:16 Albumin Human 25% (12.5 Gm/50 Ml) IV 12.5 gm ONCE [facility] Administration Albuterol/Ipratropium 3 ml 06/20/17 23:18 Duoneb 3 Mg/0.5 Mg (3 Ml) Ud IH RQ2 PRN Shortness of Breath Allopurinol 100 mg 06/21/17 10:00 06/22/17 09:56 Zyloprim PO 100 mg DAILY [facility] Administration Amlodipine Besylate 10 mg 06/21/17 10:00 06/22/17 09:56 Norvasc PO 10 mg DAILY [facility] Administration Aspirin 325 mg 06/21/17 08:00 06/22/17 09:56 Aspirin PO 325 mg 0800 [facility] Administration Bisacodyl 10 mg 06/22/17 09:42 06/22/17 10:45 Dulcolax SC 10 mg DAILY PRN Administration Constipation Calcium Acetate 667 mg 06/20/17 23:30 Phoslo PO WM [facility] Carvedilol 6.25 mg 06/22/17 10:45 06/22/17 10:44 Coreg PO 6.25 mg 0800 [facility] Administration Clopidogrel Bisulfate 75 mg 06/21/17 08:00 06/22/17 09:56 Plavix PO 75 mg 0800 [facility] Administration Docusate Sodium 100 mg 06/21/17 10:00 06/22/17 17:12 Colace PO 100 mg BID [facility] Administration Famotidine 20 mg 06/22/17 10:00 06/22/17 09:57 Pepcid IVP 20 mg DAILY [facility] Administration Folic Acid 1 mg 06/21/17 10:00 06/22/17 09:56 Folic Acid PO 1 mg DAILY [facility] Administration Heparin Sodium (Porcine) 5,000 units 06/21/17 10:00 06/22/17 17:11 Heparin SC 5,000 units BID [facility] Administration Piperacillin Sod/Tazobactam Sod 2.25 gm in 50 mls @ 100 mls/hr 06/21/17 10:30 06/22/17 17:11 Zosyn 2.25 Gm Iv Premix IVPB 100 mls/hr Q6H [facility] Administration Insulin Human Regular 0 unit 06/21/17 12:00 06/22/17 18:14 Novolin R SC Not Given Q6H [facility] Protocol Levothyroxine Sodium 25 mcg 06/21/17 06:30 06/22/17 06:34 Synthroid PO Not Given 0630 [facility] Minoxidil 2.5 mg 06/21/17 10:00 06/21/17 18:01 Minoxidil PO Not Given DAILY [facility] Rosuvastatin Calcium 5 mg 06/21/17 22:00 06/21/17 21:11 Crestor PO Not Given HS [facility] - Patient Studies Lab Studies: Microbiology Studies 06/22/17 09:43 Gram Stain - Preliminary Trachasp 06/20/17 10:50 Blood Culture - Preliminary Blood-Venous NO GROWTH AFTER 48 HOURS 06/20/17 09:50 Blood Culture - Preliminary Blood-Venous NO GROWTH AFTER 48 HOURS 06/21/17 06:15 MRSA Culture (Admit) - Final Nose Lab Studies 06/22/17 06/22/17 06/22/17 Range/Units 17:55 15:40 11:32 WBC (4.8-10.8) K/uL RBC (4.40-5.90) Mil/uL Hgb (12.0-18.0) g/dL Hct (35.0-51.0) % MCV (80.0-94.0) fL MCH (27.0-31.0) pg MCHC (33.0-37.0) g/dL RDW (11.5-14.5) % Plt Count (130-400) K/uL MPV (7.2-11.7) fL Neut % (Auto) (50.0-75.0) % Lymph % (Auto) (20.0-40.0) % [place] % (Auto) (0.0-10.0) % Eos % (Auto) (0.0-4.0) % Baso % (Auto) (0.0-2.0) % Neut # (1.8-7.0) K/uL Lymph # (1.0-4.3) K/uL [place] # (0.0-0.8) K/uL Eos # (0.0-0.7) K/uL Baso # (0.0-0.2) K/uL Neutrophils % (Manual) (50-75) % Band Neutrophils % (0-2) % Lymphocytes % (Manual) (20-40) % Monocytes % (Manual) (0-10) % Eosinophils % (Manual) (0-4) % Basophils % (Manual) (0-2) % Platelet Estimate (NORMAL) Anisocytosis (manual) Puncture Site Rba pCO2 43 (35-45) mm/Hg pO2 71 L (80-100) mm/Hg HCO3 24.8 (21-28) mmol/L ABG pH 7.38 (7.35-7.45) ABG Total CO2 26.7 (22-28) mmol/L ABG O2 Saturation 96.1 (95-98) % ABG Base Excess 0 (-2.0-3.0) mmol/L ABG Hemoglobin (11.7-17.4) g/dL ABG Carboxyhemoglobin (0.5-1.5) % POC ABG HHb (Measured) (0.0-5.0) % ABG Methemoglobin (0.0-3.0) % Juan Test Pos ABG Potassium 4.0 (3.6-5.2) mmol/L A-a O2 Difference 89.0 mm/Hg Respiratory Index 1.3 Hgb O2 Saturation (95.0-98.0) % Glucose 120 H (75-110) mg/dl Lactate 0.6 L (0.7-2.1) mmol/L Liter Flow 4.0 Vent Mode Mechanical Rate FiO2 30.0 % Tidal Volume PEEP Sodium 138.0 (132-148) mmol/L Potassium (3.6-5.2) mmol/L Chloride 102.0 (98-107) mmol/L Carbon Dioxide (22-30) mmol/L Anion Gap (10-20) BUN (9-20) mg/dL Creatinine (0.8-1.5) mg/dL Est GFR ( Amer) Est GFR (Non-Af Amer) POC Glucose (mg/dL) 130 H 104 (65-110) mg/dL Random Glucose (75-110) mg/dL Calcium (8.6-10.4) mg/dl Phosphorus (2.5-4.5) mg/dL Magnesium (1.6-2.3) mg/dL Total Bilirubin (0.2-1.3) mg/dL AST (17-59) U/L ALT (21-72) U/L Alkaline Phosphatase (38-126) U/L Total Protein (6.3-8.3) g/dL Albumin (3.5-5.0) g/dL Globulin (2.2-3.9) gm/dL Albumin/Globulin Ratio (1.0-2.1) Arterial Blood Potassium 4.0 (3.6-5.2) mmol/L 06/22/17 06/22/17 06/22/17 Range/Units 06:54 06:18 06:18 WBC 7.2 (4.8-10.8) K/uL RBC 3.52 L (4.40-5.90) Mil/uL Hgb 10.4 L (12.0-18.0) g/dL Hct 31.5 L (35.0-51.0) % MCV 89.6 D (80.0-94.0) fL MCH 29.5 (27.0-31.0) pg MCHC 32.9 L (33.0-37.0) g/dL RDW 16.2 H (11.5-14.5) % Plt Count 156 (130-400) K/uL MPV 8.7 (7.2-11.7) fL Neut % (Auto) 80.1 H (50.0-75.0) % Lymph % (Auto) 6.7 L (20.0-40.0) % [place] % (Auto) 11.4 H (0.0-10.0) % Eos % (Auto) 1.5 (0.0-4.0) % Baso % (Auto) 0.3 (0.0-2.0) % Neut # 5.7 (1.8-7.0) K/uL Lymph # 0.5 L (1.0-4.3) K/uL [place] # 0.8 (0.0-0.8) K/uL Eos # 0.1 (0.0-0.7) K/uL Baso # 0.0 (0.0-0.2) K/uL Neutrophils % (Manual) 71 (50-75) % Band Neutrophils % 7 H (0-2) % Lymphocytes % (Manual) 9 L (20-40) % Monocytes % (Manual) 11 H (0-10) % Eosinophils % (Manual) 1 (0-4) % Basophils % (Manual) 1 (0-2) % Platelet Estimate Normal (NORMAL) Anisocytosis (manual) Slight Puncture Site pCO2 (35-45) mm/Hg pO2 (80-100) mm/Hg HCO3 (21-28) mmol/L ABG pH (7.35-7.45) ABG Total CO2 (22-28) mmol/L ABG O2 Saturation (95-98) % ABG Base Excess (-2.0-3.0) mmol/L ABG Hemoglobin (11.7-17.4) g/dL ABG Carboxyhemoglobin (0.5-1.5) % POC ABG HHb (Measured) (0.0-5.0) % ABG Methemoglobin (0.0-3.0) % Juan Test ABG Potassium (3.6-5.2) mmol/L A-a O2 Difference mm/Hg Respiratory Index Hgb O2 Saturation (95.0-98.0) % Glucose (75-110) mg/dl Lactate (0.7-2.1) mmol/L Liter Flow Vent Mode Mechanical Rate FiO2 % Tidal Volume PEEP Sodium 137 (132-148) mmol/L Potassium 3.7 (3.6-5.2) mmol/L Chloride 96 L (98-107) mmol/L Carbon Dioxide 29 (22-30) mmol/L Anion Gap 16 (10-20) BUN 26 H (9-20) mg/dL Creatinine 3.2 H (0.8-1.5) mg/dL Est GFR ( Amer) 24 Est GFR (Non-Af Amer) 20 POC Glucose (mg/dL) 102 (65-110) mg/dL Random Glucose 121 H (75-110) mg/dL Calcium 8.9 (8.6-10.4) mg/dl Phosphorus 2.0 L (2.5-4.5) mg/dL Magnesium 1.9 (1.6-2.3) mg/dL Total Bilirubin 0.9 (0.2-1.3) mg/dL AST 22 (17-59) U/L ALT 30 (21-72) U/L Alkaline Phosphatase 115 (38-126) U/L Total Protein 7.7 (6.3-8.3) g/dL Albumin 3.1 L (3.5-5.0) g/dL Globulin 4.6 H (2.2-3.9) gm/dL Albumin/Globulin Ratio 0.7 L (1.0-2.1) Arterial Blood Potassium (3.6-5.2) mmol/L 06/22/17 06/22/17 Range/Units 05:23 00:02 WBC (4.8-10.8) K/uL RBC (4.40-5.90) Mil/uL Hgb (12.0-18.0) g/dL Hct (35.0-51.0) % MCV (80.0-94.0) fL MCH (27.0-31.0) pg MCHC (33.0-37.0) g/dL RDW (11.5-14.5) % Plt Count (130-400) K/uL MPV (7.2-11.7) fL Neut % (Auto) (50.0-75.0) % Lymph % (Auto) (20.0-40.0) % [place] % (Auto) (0.0-10.0) % Eos % (Auto) (0.0-4.0) % Baso % (Auto) (0.0-2.0) % Neut # (1.8-7.0) K/uL Lymph # (1.0-4.3) K/uL [place] # (0.0-0.8) K/uL Eos # (0.0-0.7) K/uL Baso # (0.0-0.2) K/uL Neutrophils % (Manual) (50-75) % Band Neutrophils % (0-2) % Lymphocytes % (Manual) (20-40) % Monocytes % (Manual) (0-10) % Eosinophils % (Manual) (0-4) % Basophils % (Manual) (0-2) % Platelet Estimate (NORMAL) Anisocytosis (manual) Puncture Site Rb pCO2 40 (35-45) mm/Hg pO2 120 H (80-100) mm/Hg HCO3 27.1 (21-28) mmol/L ABG pH 7.44 (7.35-7.45) ABG Total CO2 28.4 H (22-28) mmol/L ABG O2 Saturation 98.8 H (95-98) % ABG Base Excess 2.8 (-2.0-3.0) mmol/L ABG Hemoglobin 9.2 L (11.7-17.4) g/dL ABG Carboxyhemoglobin 4.0 H (0.5-1.5) % POC ABG HHb (Measured) 1.1 (0.0-5.0) % ABG Methemoglobin 2.1 (0.0-3.0) % Juan Test Na ABG Potassium (3.6-5.2) mmol/L A-a O2 Difference 187.0 mm/Hg Respiratory Index 1.6 Hgb O2 Saturation 92.8 L (95.0-98.0) % Glucose (75-110) mg/dl Lactate (0.7-2.1) mmol/L Liter Flow Vent Mode Prvc Mechanical Rate 20 FiO2 50.0 % Tidal Volume 500 PEEP 5 Sodium (132-148) mmol/L Potassium (3.6-5.2) mmol/L Chloride (98-107) mmol/L Carbon Dioxide (22-30) mmol/L Anion Gap (10-20) BUN (9-20) mg/dL Creatinine (0.8-1.5) mg/dL Est GFR ( Amer) Est GFR (Non-Af Amer) POC Glucose (mg/dL) 80 (65-110) mg/dL Random Glucose (75-110) mg/dL Calcium (8.6-10.4) mg/dl Phosphorus (2.5-4.5) mg/dL Magnesium (1.6-2.3) mg/dL Total Bilirubin (0.2-1.3) mg/dL AST (17-59) U/L ALT (21-72) U/L Alkaline Phosphatase (38-126) U/L Total Protein (6.3-8.3) g/dL Albumin (3.5-5.0) g/dL Globulin (2.2-3.9) gm/dL Albumin/Globulin Ratio (1.0-2.1) Arterial Blood Potassium (3.6-5.2) mmol/L Laboratory Results - last 24 hr 06/22/17 06/22/17 06/22/17 00:02 05:23 06:18 WBC 7.2 RBC 3.52 L Hgb 10.4 L Hct 31.5 L MCV 89.6 D MCH 29.5 MCHC 32.9 L RDW 16.2 H Plt Count 156 MPV 8.7 Neut % (Auto) 80.1 H Lymph % (Auto) 6.7 L [place] % (Auto) 11.4 H Eos % (Auto) 1.5 Baso % (Auto) 0.3 Neut # 5.7 Lymph # 0.5 L [place] # 0.8 Eos # 0.1 Baso # 0.0 Neutrophils % (Manual) 71 Band Neutrophils % 7 H Lymphocytes % (Manual) 9 L Monocytes % (Manual) 11 H Eosinophils % (Manual) 1 Basophils % (Manual) 1 Platelet Estimate Normal Anisocytosis (manual) Slight Puncture Site Rb pCO2 40 pO2 120 H HCO3 27.1 ABG pH 7.44 ABG Total CO2 28.4 H ABG O2 Saturation 98.8 H ABG Base Excess 2.8 ABG Hemoglobin 9.2 L ABG Carboxyhemoglobin 4.0 H POC ABG HHb (Measured) 1.1 ABG Methemoglobin 2.1 Juan Test Na ABG Potassium A-a O2 Difference 187.0 Respiratory Index 1.6 Hgb O2 Saturation 92.8 L Glucose Lactate Liter Flow Vent Mode Prvc Mechanical Rate 20 FiO2 50.0 Tidal Volume 500 PEEP 5 Sodium Potassium Chloride Carbon Dioxide Anion Gap BUN Creatinine Est GFR ( Amer) Est GFR (Non-Af Amer) POC Glucose (mg/dL) 80 Random Glucose Calcium Phosphorus Magnesium Total Bilirubin AST ALT Alkaline Phosphatase Total Protein Albumin Globulin Albumin/Globulin Ratio Arterial Blood Potassium 06/22/17 06/22/17 06/22/17 06:18 06:54 11:32 WBC RBC Hgb Hct MCV MCH MCHC RDW Plt Count MPV Neut % (Auto) Lymph % (Auto) [place] % (Auto) Eos % (Auto) Baso % (Auto) Neut # Lymph # [place] # Eos # Baso # Neutrophils % (Manual) Band Neutrophils % Lymphocytes % (Manual) Monocytes % (Manual) Eosinophils % (Manual) Basophils % (Manual) Platelet Estimate Anisocytosis (manual) Puncture Site pCO2 pO2 HCO3 ABG pH ABG Total CO2 ABG O2 Saturation ABG Base Excess ABG Hemoglobin ABG Carboxyhemoglobin POC ABG HHb (Measured) ABG Methemoglobin Juan Test ABG Potassium A-a O2 Difference Respiratory Index Hgb O2 Saturation Glucose Lactate Liter Flow Vent Mode Mechanical Rate FiO2 Tidal Volume PEEP Sodium 137 Potassium 3.7 Chloride 96 L Carbon Dioxide 29 Anion Gap 16 BUN 26 H Creatinine 3.2 H Est GFR ( Amer) 24 Est GFR (Non-Af Amer) 20 POC Glucose (mg/dL) 102 104 Random Glucose 121 H Calcium 8.9 Phosphorus 2.0 L Magnesium 1.9 Total Bilirubin 0.9 AST 22 ALT 30 Alkaline Phosphatase 115 Total Protein 7.7 Albumin 3.1 L Globulin 4.6 H Albumin/Globulin Ratio 0.7 L Arterial Blood Potassium 06/22/17 06/22/17 15:40 17:55 WBC RBC Hgb Hct MCV MCH MCHC RDW Plt Count MPV Neut % (Auto) Lymph % (Auto) [place] % (Auto) Eos % (Auto) Baso % (Auto) Neut # Lymph # [place] # Eos # Baso # Neutrophils % (Manual) Band Neutrophils % Lymphocytes % (Manual) Monocytes % (Manual) Eosinophils % (Manual) Basophils % (Manual) Platelet Estimate Anisocytosis (manual) Puncture Site Rba pCO2 43 pO2 71 L HCO3 24.8 ABG pH 7.38 ABG Total CO2 26.7 ABG O2 Saturation 96.1 ABG Base Excess 0 ABG Hemoglobin ABG Carboxyhemoglobin POC ABG HHb (Measured) ABG Methemoglobin Juan Test Pos ABG Potassium 4.0 A-a O2 Difference 89.0 Respiratory Index 1.3 Hgb O2 Saturation Glucose 120 H Lactate 0.6 L Liter Flow 4.0 Vent Mode Mechanical Rate FiO2 30.0 Tidal Volume PEEP Sodium 138.0 Potassium Chloride 102.0 Carbon Dioxide Anion Gap BUN Creatinine Est GFR ( Amer) Est GFR (Non-Af Amer) POC Glucose (mg/dL) 130 H Random Glucose Calcium Phosphorus Magnesium Total Bilirubin AST ALT Alkaline Phosphatase Total Protein Albumin Globulin Albumin/Globulin Ratio Arterial Blood Potassium 4.0 Critical Care Progress Note - Nutrition Nutrition: Nutrition Category Date Time Status Renal Diet [DIET] Diets 06/21/17 Breakfast Active Assessment/Plan - Assessment and Plan (Free Text) Plan: Hypoxic respiratory failure: Patient seen and examined at bedside. Patient intubated and alert, following simple commands. CPAP trials reveal RSBI 40s and Fio2 30% with Vt max of 700 ml -Patient was extubated -continue to monitor BP and avoid fluid overloaded states. -avoid any sedations. -HD as pe schedule -cc time 35 minutes - Date & Time Date: 06/22/17 Time: 18:27
[2017-06-22 15:44] LABS: ABG ALLEN TEST POS; DRAW SITE RBA
--- NOTE | 2017-06-22 17:15 | CP.PCM.PN ---
Subjective - Date & Time of Evaluation Date of Evaluation: 06/22/17 Time of Evaluation: 08:00 - Subjective Subjective: seen and examined in the intensive care unit extubated awake alert Objective - Vital Signs/Intake and Output Vital Signs (last 24 hours): Temp Pulse Resp BP Pulse Ox 97.1 F L 88 32 H 161/68 H 97 06/22/17 16:00 06/22/17 16:00 06/22/17 16:00 06/22/17 16:00 06/22/17 16:00 Intake and Output: 06/22/17 06/22/17 06:59 18:59 Intake Total 100 110 Output Total 0 250 Balance 100 -140 - Medications Medications: Current Medications Albumin Human (Albumin Human 25% (12.5 Gm/50 Ml)) 12.5 gm IV ONCE [facility] Last Admin: 06/21/17 12:16 Dose: 12.5 gm Albuterol/Ipratropium (Duoneb 3 Mg/0.5 Mg (3 Ml) Ud) 3 ml IH RQ2 PRN PRN Reason: Shortness of Breath Allopurinol (Zyloprim) 100 mg PO DAILY [facility] Last Admin: 06/22/17 09:56 Dose: 100 mg Amlodipine Besylate (Norvasc) 10 mg PO DAILY [facility] Last Admin: 06/22/17 09:56 Dose: 10 mg Aspirin (Aspirin) 325 mg PO 0800 [facility] Last Admin: 06/22/17 09:56 Dose: 325 mg Bisacodyl (Dulcolax) 10 mg [place] DAILY PRN PRN Reason: Constipation Last Admin: 06/22/17 10:45 Dose: 10 mg Calcium Acetate (Phoslo) 667 mg PO [facility] Carvedilol (Coreg) 6.25 mg PO 0800 [facility] Last Admin: 06/22/17 10:44 Dose: 6.25 mg Clopidogrel Bisulfate (Plavix) 75 mg PO 0800 [facility] Last Admin: 06/22/17 09:56 Dose: 75 mg Docusate Sodium (Colace) 100 mg PO BID [facility] Last Admin: 06/22/17 17:12 Dose: 100 mg Famotidine (Pepcid) 20 mg IVP DAILY [facility] Last Admin: 06/22/17 09:57 Dose: 20 mg Folic Acid (Folic Acid) 1 mg PO DAILY [facility] Last Admin: 06/22/17 09:56 Dose: 1 mg Heparin Sodium (Porcine) (Heparin) 5,000 units SC BID [facility] Last Admin: 06/22/17 17:11 Dose: 5,000 units Piperacillin Sod/Tazobactam Sod (Zosyn 2.25 Gm Iv Premix) 2.25 gm in 50 mls @ 100 mls/hr IVPB Q6H [facility] Last Admin: 06/22/17 17:11 Dose: 100 mls/hr Insulin Human Regular (Novolin R) 0 unit SC Q6H [facility] PRN Reason: Protocol Last Admin: 06/22/17 13:16 Dose: Not Given Levothyroxine Sodium (Synthroid) 25 mcg PO 0630 [facility] Last Admin: 06/22/17 06:34 Dose: Not Given Minoxidil (Minoxidil) 2.5 mg PO DAILY [facility] Last Admin: 06/21/17 18:01 Dose: Not Given Rosuvastatin Calcium (Crestor) 5 mg PO HS [facility] Last Admin: 06/21/17 21:11 Dose: Not Given - Labs Labs: 06/22/17 06:18 06/22/17 06:18 PT 11.4 SECONDS (9.7-12.2) 06/21/17 07:07 INR 1.0 06/21/17 07:07 APTT 46 SECONDS (21-34) H 06/21/17 07:07 - Constitutional Appears: Non-toxic, Chronically Ill - Head Exam Head Exam: NORMOCEPHALIC - Eye Exam Eye Exam: PERRL Pupil Exam: NORMAL ACCOMODATION - ENT Exam ENT Exam: Normal External Ear Exam - Respiratory Exam Respiratory Exam: Decreased Breath Sounds - Cardiovascular Exam Cardiovascular Exam: REGULAR RHYTHM - GI/Abdominal Exam GI & Abdominal Exam: Distended, Soft - Rectal Exam Rectal Exam: Deferred - Exam Exam: NORMAL INSPECTION - Extremities Exam Extremities Exam: absent: Pedal Edema - Back Exam Back Exam: absent: CVA tenderness (L), CVA tenderness (R) - Neurological Exam Neurological Exam: Alert, Awake Assessment and Plan - Assessment and Plan (Free Text) Plan: cont rx resp failure sepsis pneumonia
--- NOTE | 2017-06-22 19:27 | CP.PCM.PN ---
Subjective - Date & Time of Evaluation Date of Evaluation: 06/22/17 Time of Evaluation: 09:00 - Subjective Subjective: Patient seen and evaluated Not in distress follows some commands Objective - Vital Signs/Intake and Output Vital Signs (last 24 hours): Temp Pulse Resp BP Pulse Ox 97.1 F L 90 30 H 152/72 H 98 06/22/17 16:00 06/22/17 19:00 06/22/17 19:00 06/22/17 19:00 06/22/17 19:00 Intake and Output: 06/22/17 06/23/17 18:59 06:59 Intake Total 220 0 Output Total 250 Balance -30 0 - Medications Medications: Current Medications Albumin Human (Albumin Human 25% (12.5 Gm/50 Ml)) 12.5 gm IV ONCE [facility] Last Admin: 06/21/17 12:16 Dose: 12.5 gm Albuterol/Ipratropium (Duoneb 3 Mg/0.5 Mg (3 Ml) Ud) 3 ml IH RQ2 PRN PRN Reason: Shortness of Breath Allopurinol (Zyloprim) 100 mg PO DAILY [facility] Last Admin: 06/22/17 09:56 Dose: 100 mg Amlodipine Besylate (Norvasc) 10 mg PO DAILY [facility] Last Admin: 06/22/17 09:56 Dose: 10 mg Aspirin (Aspirin) 325 mg PO 0800 [facility] Last Admin: 06/22/17 09:56 Dose: 325 mg Bisacodyl (Dulcolax) 10 mg [place] DAILY PRN PRN Reason: Constipation Last Admin: 06/22/17 10:45 Dose: 10 mg Calcium Acetate (Phoslo) 667 mg PO [facility] Carvedilol (Coreg) 6.25 mg PO 0800 [facility] Last Admin: 06/22/17 10:44 Dose: 6.25 mg Clopidogrel Bisulfate (Plavix) 75 mg PO 0800 [facility] Last Admin: 06/22/17 09:56 Dose: 75 mg Docusate Sodium (Colace) 100 mg PO BID [facility] Last Admin: 06/22/17 17:12 Dose: 100 mg Famotidine (Pepcid) 20 mg IVP DAILY [facility] Last Admin: 06/22/17 09:57 Dose: 20 mg Folic Acid (Folic Acid) 1 mg PO DAILY [facility] Last Admin: 06/22/17 09:56 Dose: 1 mg Heparin Sodium (Porcine) (Heparin) 5,000 units SC BID [facility] Last Admin: 06/22/17 17:11 Dose: 5,000 units Piperacillin Sod/Tazobactam Sod (Zosyn 2.25 Gm Iv Premix) 2.25 gm in 50 mls @ 100 mls/hr IVPB Q6H [facility] Last Admin: 06/22/17 17:11 Dose: 100 mls/hr Insulin Human Regular (Novolin R) 0 unit SC Q6H [facility] PRN Reason: Protocol Last Admin: 06/22/17 18:14 Dose: Not Given Levothyroxine Sodium (Synthroid) 25 mcg PO 0630 [facility] Last Admin: 06/22/17 06:34 Dose: Not Given Minoxidil (Minoxidil) 2.5 mg PO DAILY [facility] Last Admin: 06/21/17 18:01 Dose: Not Given Rosuvastatin Calcium (Crestor) 5 mg PO HS [facility] Last Admin: 06/21/17 21:11 Dose: Not Given - Labs Labs: 06/22/17 06:18 06/22/17 06:18 PT 11.4 SECONDS (9.7-12.2) 06/21/17 07:07 INR 1.0 06/21/17 07:07 APTT 46 SECONDS (21-34) H 06/21/17 07:07
--- NOTE | 2017-06-22 19:34 | CP.PCM.PN ---
Subjective - Date & Time of Evaluation Date of Evaluation: 06/22/17 Time of Evaluation: 10:40 - Subjective Subjective: clinically same Objective - Vital Signs/Intake and Output Vital Signs (last 24 hours): Temp Pulse Resp BP Pulse Ox 97.1 F L 90 30 H 152/72 H 98 06/22/17 16:00 06/22/17 19:00 06/22/17 19:00 06/22/17 19:00 06/22/17 19:00 Intake and Output: 06/22/17 06/23/17 18:59 06:59 Intake Total 220 0 Output Total 250 Balance -30 0 - Medications Medications: Current Medications Albumin Human (Albumin Human 25% (12.5 Gm/50 Ml)) 12.5 gm IV ONCE [facility] Last Admin: 06/21/17 12:16 Dose: 12.5 gm Albuterol/Ipratropium (Duoneb 3 Mg/0.5 Mg (3 Ml) Ud) 3 ml IH RQ2 PRN PRN Reason: Shortness of Breath Allopurinol (Zyloprim) 100 mg PO DAILY [facility] Last Admin: 06/22/17 09:56 Dose: 100 mg Amlodipine Besylate (Norvasc) 10 mg PO DAILY [facility] Last Admin: 06/22/17 09:56 Dose: 10 mg Aspirin (Aspirin) 325 mg PO 0800 [facility] Last Admin: 06/22/17 09:56 Dose: 325 mg Bisacodyl (Dulcolax) 10 mg [place] DAILY PRN PRN Reason: Constipation Last Admin: 06/22/17 10:45 Dose: 10 mg Calcium Acetate (Phoslo) 667 mg PO [facility] Carvedilol (Coreg) 6.25 mg PO 0800 [facility] Last Admin: 06/22/17 10:44 Dose: 6.25 mg Clopidogrel Bisulfate (Plavix) 75 mg PO 0800 [facility] Last Admin: 06/22/17 09:56 Dose: 75 mg Docusate Sodium (Colace) 100 mg PO BID [facility] Last Admin: 06/22/17 17:12 Dose: 100 mg Famotidine (Pepcid) 20 mg IVP DAILY [facility] Last Admin: 06/22/17 09:57 Dose: 20 mg Folic Acid (Folic Acid) 1 mg PO DAILY [facility] Last Admin: 06/22/17 09:56 Dose: 1 mg Heparin Sodium (Porcine) (Heparin) 5,000 units SC BID [facility] Last Admin: 06/22/17 17:11 Dose: 5,000 units Piperacillin Sod/Tazobactam Sod (Zosyn 2.25 Gm Iv Premix) 2.25 gm in 50 mls @ 100 mls/hr IVPB Q6H [facility] Last Admin: 06/22/17 17:11 Dose: 100 mls/hr Insulin Human Regular (Novolin R) 0 unit SC Q6H [facility] PRN Reason: Protocol Last Admin: 06/22/17 18:14 Dose: Not Given Levothyroxine Sodium (Synthroid) 25 mcg PO 0630 [facility] Last Admin: 06/22/17 06:34 Dose: Not Given Minoxidil (Minoxidil) 2.5 mg PO DAILY [facility] Last Admin: 06/21/17 18:01 Dose: Not Given Rosuvastatin Calcium (Crestor) 5 mg PO HS [facility] Last Admin: 06/21/17 21:11 Dose: Not Given - Labs Labs: 06/22/17 06:18 06/22/17 06:18 PT 11.4 SECONDS (9.7-12.2) 06/21/17 07:07 INR 1.0 06/21/17 07:07 APTT 46 SECONDS (21-34) H 06/21/17 07:07
[2017-06-23] MEDS: (Novolin R) Insulin Human Regular 100 units/ml vial SC SCH ×5 (00:38→23:43)
[2017-06-23] MEDS: Albuterol-Ipratrop 3 mg / 0.5 (3 ml) UD IH PRN ×3 (00:41→07:47)
[2017-06-23] MEDS: Piperacill/Tazo 2.25gm in Dex 2.25 GM/50 ML BAG IVPB SCH ×4 (03:41→22:23)
[2017-06-23] MEDS: Levothyroxine 25 MCG TAB PO SCH (05:58)
[2017-06-23 06:12] LABS: BASO % 0.3 % (0.0-2.0); EOS # 0.3 K/uL (0.0-0.7); EOS % 3.8 % (0.0-4.0); HEMATOCRIT 35.4 % (35.0-51.0); LYMPH # 0.5 K/uL (1.0-4.3); LYMPH % 6.4 % (20.0-40.0); MEAN CORPUSCULAR HGB CONC 33.3 g/dL (33.0-37.0); MEAN PLATELET VOLUME 8.9 fL (7.2-11.7); MONO # 0.8 K/uL (0.0-0.8); MONO % 10.6 % (0.0-10.0); PLATELET COUNT 191 K/uL (130-400); RED CELL DISTRIBUTION WIDTH 16.5 % (11.5-14.5); WHITE BLOOD COUNT 7.9 K/uL (4.8-10.8)
[2017-06-23 06:32] LABS: ALB/GLOB RATIO 0.7 (1.0-2.1); BILIRUBIN,TOTAL 0.7 mg/dL (0.2-1.3); MAGNESIUM 2.2 mg/dL (1.6-2.3); PHOSPHOROUS 3.2 mg/dL (2.5-4.5); POTASSIUM 4.2 mmol/L (3.6-5.2); TOTAL PROTEIN 7.9 g/dL (6.3-8.3)
[2017-06-23 08:53] LABS: EOSINOPHIL 3 % (0-4); NEUTROPHIL 80 % (50-75); TOTAL CELLS COUNTED 100
[2017-06-23] MEDS ORDERED: MethylPREDNISolone 40 mg Vial IVP ONE (10:15)
[2017-06-23] MEDS: Albuterol-Ipratrop 3 mg / 0.5 (3 ml) UD IH SCH ×2 (10:55→20:01)
--- NOTE | 2017-06-23 12:25 | CP.PCM.PN ---
Subjective - Date & Time of Evaluation Date of Evaluation: 06/23/17 Time of Evaluation: 10:30 - Subjective Subjective: The patient seen and examined Patient self extubated lying comfortably in no distress Awake and responsive Denies any chest pain Status post hemodialys Afebrile Objective - Vital Signs/Intake and Output Vital Signs (last 24 hours): Temp Pulse Resp BP Pulse Ox 98 F 88 40 H 146/60 100 06/23/17 03:59 06/23/17 06:00 06/23/17 06:00 06/23/17 06:00 06/23/17 06:00 Intake and Output: 06/23/17 06/23/17 06:59 18:59 Intake Total 100 Balance 100 - Medications Medications: Current Medications Albumin Human (Albumin Human 25% (12.5 Gm/50 Ml)) 12.5 gm IV ONCE [facility] Last Admin: 06/21/17 12:16 Dose: 12.5 gm Albuterol/Ipratropium (Duoneb 3 Mg/0.5 Mg (3 Ml) Ud) 3 ml IH Q6H [facility] Last Admin: 06/23/17 10:55 Dose: 3 ml Allopurinol (Zyloprim) 100 mg PO DAILY [facility] Last Admin: 06/23/17 10:42 Dose: 100 mg Amlodipine Besylate (Norvasc) 10 mg PO DAILY [facility] Last Admin: 06/23/17 10:30 Dose: 10 mg Aspirin (Aspirin) 325 mg PO 0800 [facility] Last Admin: 06/23/17 10:28 Dose: 325 mg Bisacodyl (Dulcolax) 10 mg [place] DAILY PRN PRN Reason: Constipation Last Admin: 06/22/17 10:45 Dose: 10 mg Calcium Acetate (Phoslo) 667 mg PO [facility] Carvedilol (Coreg) 6.25 mg PO 0800 [facility] Last Admin: 06/23/17 10:28 Dose: 6.25 mg Clopidogrel Bisulfate (Plavix) 75 mg PO 0800 [facility] Last Admin: 06/23/17 10:31 Dose: 75 mg Docusate Sodium (Colace) 100 mg PO BID [facility] Last Admin: 06/23/17 10:28 Dose: 100 mg Famotidine (Pepcid) 20 mg IVP DAILY [facility] Last Admin: 06/23/17 10:29 Dose: 20 mg Folic Acid (Folic Acid) 1 mg PO DAILY [facility] Last Admin: 06/23/17 10:30 Dose: 1 mg Heparin Sodium (Porcine) (Heparin) 5,000 units SC BID [facility] Last Admin: 06/23/17 10:29 Dose: 5,000 units Piperacillin Sod/Tazobactam Sod (Zosyn 2.25 Gm Iv Premix) 2.25 gm in 50 mls @ 100 mls/hr IVPB Q6H [facility] Last Admin: 06/23/17 10:33 Dose: 100 mls/hr Insulin Human Regular (Novolin R) 0 unit SC Q6H [facility] PRN Reason: Protocol Last Admin: 06/23/17 05:58 Dose: Not Given Levothyroxine Sodium (Synthroid) 25 mcg PO 0630 [facility] Last Admin: 06/23/17 05:58 Dose: Not Given Minoxidil (Minoxidil) 2.5 mg PO DAILY [facility] Last Admin: 06/21/17 18:01 Dose: Not Given Rosuvastatin Calcium (Crestor) 5 mg PO HS [facility] Last Admin: 06/23/17 00:12 Dose: Not Given - Labs Labs: 06/23/17 06:00 06/23/17 06:00 PT 11.4 SECONDS (9.7-12.2) 06/21/17 07:07 INR 1.0 06/21/17 07:07 APTT 46 SECONDS (21-34) H 06/21/17 07:07 Assessment and Plan (1) Acute respiratory failure Assessment & Plan: patient self extubated and in no respiratory distress Continue nebulizer treatment, steroids Continue hemodialysis and antibiotics Status: Acute (2) Pneumonia Status: Acute (3) ESRD (end stage renal disease) on dialysis Status: Chronic
--- NOTE | 2017-06-23 16:37 | CP.PCM.PN ---
Subjective - Date & Time of Evaluation Date of Evaluation: 06/23/17 Time of Evaluation: 11:00 - Subjective Subjective: clinically same Objective - Vital Signs/Intake and Output Vital Signs (last 24 hours): Temp Pulse Resp BP Pulse Ox 98.4 F 90 35 H 109/62 96 06/23/17 15:05 06/23/17 16:24 06/23/17 16:24 06/23/17 16:24 06/23/17 16:24 Intake and Output: 06/23/17 06/23/17 06:59 18:59 Intake Total 100 Balance 100 - Medications Medications: Current Medications Albumin Human (Albumin Human 25% (12.5 Gm/50 Ml)) 12.5 gm IV ONCE [facility] Last Admin: 06/21/17 12:16 Dose: 12.5 gm Albuterol/Ipratropium (Duoneb 3 Mg/0.5 Mg (3 Ml) Ud) 3 ml IH Q6H [facility] Last Admin: 06/23/17 10:55 Dose: 3 ml Allopurinol (Zyloprim) 100 mg PO DAILY [facility] Last Admin: 06/23/17 10:42 Dose: 100 mg Amlodipine Besylate (Norvasc) 10 mg PO DAILY [facility] Last Admin: 06/22/17 09:56 Dose: 10 mg Aspirin (Aspirin) 325 mg PO 0800 [facility] Last Admin: 06/23/17 10:28 Dose: 325 mg Bisacodyl (Dulcolax) 10 mg [place] DAILY PRN PRN Reason: Constipation Last Admin: 06/22/17 10:45 Dose: 10 mg Calcium Acetate (Phoslo) 667 mg PO [facility] Carvedilol (Coreg) 6.25 mg PO 0800 [facility] Last Admin: 06/22/17 10:44 Dose: 6.25 mg Clopidogrel Bisulfate (Plavix) 75 mg PO 0800 [facility] Last Admin: 06/23/17 10:31 Dose: 75 mg Docusate Sodium (Colace) 100 mg PO BID [facility] Last Admin: 06/23/17 10:28 Dose: 100 mg Famotidine (Pepcid) 20 mg IVP DAILY [facility] Last Admin: 06/23/17 10:29 Dose: 20 mg Folic Acid (Folic Acid) 1 mg PO DAILY [facility] Last Admin: 06/23/17 10:30 Dose: 1 mg Heparin Sodium (Porcine) (Heparin) 5,000 units SC BID [facility] Last Admin: 06/23/17 10:29 Dose: 5,000 units Piperacillin Sod/Tazobactam Sod (Zosyn 2.25 Gm Iv Premix) 2.25 gm in 50 mls @ 100 mls/hr IVPB Q6H [facility] Last Admin: 06/23/17 16:30 Dose: Not Given Insulin Human Regular (Novolin R) 0 unit SC Q6H [facility] PRN Reason: Protocol Last Admin: 06/23/17 12:00 Dose: Not Given Levothyroxine Sodium (Synthroid) 25 mcg PO 0630 [facility] Last Admin: 06/23/17 05:58 Dose: Not Given Minoxidil (Minoxidil) 2.5 mg PO DAILY [facility] Last Admin: 06/21/17 18:01 Dose: Not Given Rosuvastatin Calcium (Crestor) 5 mg PO HS [facility] Last Admin: 06/23/17 00:12 Dose: Not Given - Labs Labs: 06/23/17 06:00 06/23/17 06:00 PT 11.4 SECONDS (9.7-12.2) 06/21/17 07:07 INR 1.0 06/21/17 07:07 APTT 46 SECONDS (21-34) H 06/21/17 07:07 - Constitutional Appears: Well - Head Exam Head Exam: ATRAUMATIC, NORMAL INSPECTION, NORMOCEPHALIC - Eye Exam Eye Exam: EOMI, Normal appearance, PERRL Pupil Exam: NORMAL ACCOMODATION, PERRL - ENT Exam ENT Exam: Mucous Membranes Moist, Normal Exam - Neck Exam Neck Exam: Full ROM, Normal Inspection. absent: Lymphadenopathy - Respiratory Exam Respiratory Exam: Decreased Breath Sounds - Cardiovascular Exam Cardiovascular Exam: REGULAR RHYTHM, +S1, +S2 - GI/Abdominal Exam GI & Abdominal Exam: Soft, Diminished Bowel Sounds - Rectal Exam Rectal Exam: Deferred
--- NOTE | 2017-06-23 18:44 | CARD ---
APPROVED REPORT EXAM: Two-dimensional and M-mode echocardiogram with Doppler and color Doppler. Other Information Quality : GoodRhythm : INDICATION Congestive Heart Failure RENAL FAILURE 2D DIMENSIONS IVSd1.2 (0.7-1.1cm)LVDd4.8 (3.9-5.9cm) PWd1.1 (0.7-1.1cm)LVDs2.8 (2.5-4.0cm) FS (%) 42.0 %LVEF (%)65.0 (>50%) M-Mode DIMENSIONS Left Atrium (MM)3.96 (2.5-4.0cm)Aortic Root3.67 (2.2-3.7cm) Aortic Cusp Exc.1.75 (1.5-2.0cm) Mitral Valve MV E Povgaskq749.0cm/sMV A Fwzlrlqd981.8cm/sE/A ratio0.8 TDI E/Lateral E'0.0E/Medial E'0.0 Tricuspid Valve TR Peak [id number]/sTR Peak Gr.[id number] LEFT VENTRICLE The left ventricle is normal size. There is normal left ventricular wall thickness. Left ventricle systolic function is normal. The Ejection Fraction is 60-65%. There is normal LV segmental wall motion. Tissue Doppler imaging reveals abnormal left ventricular diastolic dysfunction. RIGHT VENTRICLE The right ventricle is normal size. There is normal right ventricular wall thickness. The right ventricular systolic function is normal. ATRIA The left atrium size is normal. The right atrium size is normal. The interatrial septum is intact with no evidence for an atrial septal defect. AORTIC VALVE The aortic valve is normal in structure. No aortic regurgitation is present. There is no aortic valvular stenosis. MITRAL VALVE Mitral annular calcification is mild. There is no evidence of mitral valve prolapse. There is no mitral valve stenosis. Mitral regurgitation is mild. TRICUSPID VALVE The tricuspid valve is normal in structure. There is mild tricuspid regurgitation. Right ventricular systolic pressure is estimated at 30-40 mmHg. There is mild pulmonary hypertension. PULMONIC VALVE The pulmonic valve is not well visualized. There is trace pulmonic valvular regurgitation. GREAT VESSELS The aortic root is normal in size. PERICARDIAL EFFUSION There is no significant pericardial effusion. <Conclusion> Left ventricle systolic function is normal. The Ejection Fraction is 60-65%. Diastolic dysfunction. No aortic regurgitation is present. Mitral regurgitation is mild. There is mild tricuspid regurgitation. There is mild pulmonary hypertension. There is trace pulmonic valvular regurgitation.
[2017-06-23] MEDS: MethylPREDNISolone 40 mg Vial IVP SCH (19:00)
--- NOTE | 2017-06-23 19:28 | CP.CCUPN ---
CCU Subjective - Physician Review Subjective (Free Text): Patient tolerated extubation. Bedside tolerated puree diet -awaiting HD today with likely negative balance -tolerating oral antihypertensive 06/23/17 19:05 CCU Objective - Vital Signs / Intake & Output Vital Signs (Last 4 hours): Vital Signs Temp Pulse Pulse Resp BP BP Pulse Ox 06/23/17 18:35 97.4 F L 90 41 H 92/50 L 100 06/23/17 18:05 86/50 L 06/23/17 17:35 99/47 L 06/23/17 17:05 99/49 L 06/23/17 16:35 109/62 06/23/17 16:24 90 35 H 109/62 96 06/23/17 16:09 90 40 H 108/58 L 94 L 06/23/17 16:05 108/58 L 06/23/17 16:00 98.4 F 91 H 39 H 95 06/23/17 15:54 91 H 42 H 116/53 L 98 06/23/17 15:50 116/53 L 06/23/17 15:39 93 H 45 H 128/68 94 L 06/23/17 15:35 128/68 06/23/17 15:24 93 H 41 H 137/70 98 06/23/17 15:20 149/72 06/23/17 15:09 96 H 46 H 149/72 97 06/23/17 15:08 96 H 47 H 150/69 94 L Intake and Output (Last 8hrs): Intake & Output 06/23/17 06/23/17 06/23/17 06:59 14:59 22:59 Intake Total 100 Balance 100 Intake: Intake, IV Amount 100 Left Internal Jugular 100 - Physical Exam Head: Positive for: Atraumatic, Normocephalic Pupils: Positive for: Pinpoint, Other (patient fighting against light in eye. ) Extroacular Muscles: Positive for: EOMI Conjunctiva: Positive for: Icteric Mouth: Positive for: Moist Mucous Membranes, Other (intubated) Respiratory/Chest: Positive for: Wheezes, Decreased Breath Sounds, Rales Cardiovascular: Positive for: Regular Rate and Rhythm, Murmurs, Normal S1, S2 Abdomen: Positive for: Hernias (ventral). Negative for: Tenderness, Distention , Peritoneal Signs Upper Extremity: Positive for: Edema Lower Extremity: Positive for: Edema, Other (c/w PVD, shiny skin with poor hair growth) Neurological: Positive for: Other (intubated) Skin: Positive for: Warm, Dry Psychiatric: Positive for: Alert, Other (intubated) - Medications Active Medications: Active Medications Generic Name Dose Route Start Last Admin Trade Name Freq PRN Reason Stop Dose Admin Albumin Human 12.5 gm 06/21/17 10:30 06/21/17 12:16 Albumin Human 25% (12.5 Gm/50 Ml) IV 12.5 gm ONCE [facility] Administration Albuterol/Ipratropium 3 ml 06/23/17 10:01 06/23/17 10:55 Duoneb 3 Mg/0.5 Mg (3 Ml) Ud IH 3 ml Q6H [facility] Administration Allopurinol 100 mg 06/21/17 10:00 06/23/17 10:42 Zyloprim PO 100 mg DAILY [facility] Administration Amlodipine Besylate 10 mg 06/21/17 10:00 06/22/17 09:56 Norvasc PO 10 mg DAILY [facility] Administration Aspirin 325 mg 06/21/17 08:00 06/23/17 10:28 Aspirin PO 325 mg 0800 [facility] Administration Bisacodyl 10 mg 06/22/17 09:42 06/22/17 10:45 Dulcolax [place] 10 mg DAILY PRN Administration Constipation Calcium Acetate 667 mg 06/20/17 23:30 Phoslo PO WM [facility] Carvedilol 6.25 mg 06/22/17 10:45 06/22/17 10:44 Coreg PO 6.25 mg 0800 [facility] Administration Clopidogrel Bisulfate 75 mg 06/21/17 08:00 06/23/17 10:31 Plavix PO 75 mg 0800 [facility] Administration Docusate Sodium 100 mg 06/21/17 10:00 06/23/17 10:28 Colace PO 100 mg BID [facility] Administration Famotidine 20 mg 06/22/17 10:00 06/23/17 10:29 Pepcid IVP 20 mg DAILY [facility] Administration Folic Acid 1 mg 06/21/17 10:00 06/23/17 10:30 Folic Acid PO 1 mg DAILY [facility] Administration Heparin Sodium (Porcine) 5,000 units 06/21/17 10:00 06/23/17 10:29 Heparin SC 5,000 units BID [facility] Administration Piperacillin Sod/Tazobactam Sod 2.25 gm in 50 mls @ 100 mls/hr 06/21/17 10:30 06/23/17 16:30 Zosyn 2.25 Gm Iv Premix IVPB Not Given Q6H [facility] Insulin Human Regular 0 unit 06/21/17 12:00 06/23/17 12:00 Novolin R SC Not Given Q6H [facility] Protocol Levothyroxine Sodium 25 mcg 06/21/17 06:30 06/23/17 05:58 Synthroid PO Not Given 0630 [facility] Methylprednisolone 40 mg 06/23/17 18:00 Solu-Medrol IVP Q8H [facility] Minoxidil 2.5 mg 06/21/17 10:00 06/21/17 18:01 Minoxidil PO Not Given DAILY [facility] Rosuvastatin Calcium 5 mg 06/21/17 22:00 06/23/17 00:12 Crestor PO Not Given HS [facility] - Patient Studies Lab Studies: Microbiology Studies 06/20/17 10:50 Blood Culture - Preliminary Blood-Venous NO GROWTH AFTER 3 DAYS 06/20/17 09:50 Blood Culture - Preliminary Blood-Venous NO GROWTH AFTER 3 DAYS 06/22/17 09:43 Gram Stain - Final Trachasp 06/21/17 06:15 MRSA Culture (Admit) - Final Nose Lab Studies 06/23/17 06/23/17 06/23/17 Range/Units 18:09 11:59 06:00 WBC (4.8-10.8) K/uL RBC (4.40-5.90) Mil/uL Hgb (12.0-18.0) g/dL Hct (35.0-51.0) % MCV (80.0-94.0) fL MCH (27.0-31.0) pg MCHC (33.0-37.0) g/dL RDW (11.5-14.5) % Plt Count (130-400) K/uL MPV (7.2-11.7) fL Neut % (Auto) (50.0-75.0) % Lymph % (Auto) (20.0-40.0) % [place] % (Auto) (0.0-10.0) % Eos % (Auto) (0.0-4.0) % Baso % (Auto) (0.0-2.0) % Neut # (1.8-7.0) K/uL Lymph # (1.0-4.3) K/uL [place] # (0.0-0.8) K/uL Eos # (0.0-0.7) K/uL Baso # (0.0-0.2) K/uL Neutrophils % (Manual) (50-75) % Band Neutrophils % (0-2) % Lymphocytes % (Manual) (20-40) % Monocytes % (Manual) (0-10) % Eosinophils % (Manual) (0-4) % Platelet Estimate (NORMAL) Basophilic Stippling Anisocytosis (manual) Sodium 140 (132-148) mmol/L Potassium 4.2 (3.6-5.2) mmol/L Chloride 98 (98-107) mmol/L Carbon Dioxide 29 (22-30) mmol/L Anion Gap 18 (10-20) BUN 44 H (9-20) mg/dL Creatinine 5.1 H (0.8-1.5) mg/dL Est GFR ( Amer) 14 Est GFR (Non-Af Amer) 12 POC Glucose (mg/dL) 133 H 140 H (65-110) mg/dL Random Glucose 99 (75-110) mg/dL Calcium 9.0 (8.6-10.4) mg/dl Phosphorus 3.2 (2.5-4.5) mg/dL Magnesium 2.2 (1.6-2.3) mg/dL Total Bilirubin 0.7 (0.2-1.3) mg/dL AST 26 (17-59) U/L ALT 31 (21-72) U/L Alkaline Phosphatase 156 H D (38-126) U/L Total Protein 7.9 (6.3-8.3) g/dL Albumin 3.3 L (3.5-5.0) g/dL Globulin 4.6 H (2.2-3.9) gm/dL Albumin/Globulin Ratio 0.7 L (1.0-2.1) 06/23/17 06/23/17 06/22/17 Range/Units 06:00 04:56 23:47 WBC 7.9 (4.8-10.8) K/uL RBC 3.94 L (4.40-5.90) Mil/uL Hgb 11.8 L (12.0-18.0) g/dL Hct 35.4 (35.0-51.0) % MCV 90.0 (80.0-94.0) fL MCH 30.0 (27.0-31.0) pg MCHC 33.3 (33.0-37.0) g/dL RDW 16.5 H (11.5-14.5) % Plt Count 191 (130-400) K/uL MPV 8.9 (7.2-11.7) fL Neut % (Auto) 78.9 H (50.0-75.0) % Lymph % (Auto) 6.4 L (20.0-40.0) % [place] % (Auto) 10.6 H (0.0-10.0) % Eos % (Auto) 3.8 (0.0-4.0) % Baso % (Auto) 0.3 (0.0-2.0) % Neut # 6.2 (1.8-7.0) K/uL Lymph # 0.5 L (1.0-4.3) K/uL [place] # 0.8 (0.0-0.8) K/uL Eos # 0.3 (0.0-0.7) K/uL Baso # 0.0 (0.0-0.2) K/uL Neutrophils % (Manual) 80 H (50-75) % Band Neutrophils % 6 H (0-2) % Lymphocytes % (Manual) 6 L (20-40) % Monocytes % (Manual) 5 (0-10) % Eosinophils % (Manual) 3 (0-4) % Platelet Estimate Normal (NORMAL) Basophilic Stippling Slight Anisocytosis (manual) Slight Sodium (132-148) mmol/L Potassium (3.6-5.2) mmol/L Chloride (98-107) mmol/L Carbon Dioxide (22-30) mmol/L Anion Gap (10-20) BUN (9-20) mg/dL Creatinine (0.8-1.5) mg/dL Est GFR ( Amer) Est GFR (Non-Af Amer) POC Glucose (mg/dL) 97 109 (65-110) mg/dL Random Glucose (75-110) mg/dL Calcium (8.6-10.4) mg/dl Phosphorus (2.5-4.5) mg/dL Magnesium (1.6-2.3) mg/dL Total Bilirubin (0.2-1.3) mg/dL AST (17-59) U/L ALT (21-72) U/L Alkaline Phosphatase (38-126) U/L Total Protein (6.3-8.3) g/dL Albumin (3.5-5.0) g/dL Globulin (2.2-3.9) gm/dL Albumin/Globulin Ratio (1.0-2.1) Laboratory Results - last 24 hr 06/22/17 06/23/17 06/23/17 23:47 04:56 06:00 WBC 7.9 RBC 3.94 L Hgb 11.8 L Hct 35.4 MCV 90.0 MCH 30.0 MCHC 33.3 RDW 16.5 H Plt Count 191 MPV 8.9 Neut % (Auto) 78.9 H Lymph % (Auto) 6.4 L [place] % (Auto) 10.6 H Eos % (Auto) 3.8 Baso % (Auto) 0.3 Neut # 6.2 Lymph # 0.5 L [place] # 0.8 Eos # 0.3 Baso # 0.0 Neutrophils % (Manual) 80 H Band Neutrophils % 6 H Lymphocytes % (Manual) 6 L Monocytes % (Manual) 5 Eosinophils % (Manual) 3 Platelet Estimate Normal Basophilic Stippling Slight Anisocytosis (manual) Slight Sodium Potassium Chloride Carbon Dioxide Anion Gap BUN Creatinine Est GFR ( Amer) Est GFR (Non-Af Amer) POC Glucose (mg/dL) 109 97 Random Glucose Calcium Phosphorus Magnesium Total Bilirubin AST ALT Alkaline Phosphatase Total Protein Albumin Globulin Albumin/Globulin Ratio 06/23/17 06/23/17 06/23/17 06:00 11:59 18:09 WBC RBC Hgb Hct MCV MCH MCHC RDW Plt Count MPV Neut % (Auto) Lymph % (Auto) [place] % (Auto) Eos % (Auto) Baso % (Auto) Neut # Lymph # [place] # Eos # Baso # Neutrophils % (Manual) Band Neutrophils % Lymphocytes % (Manual) Monocytes % (Manual) Eosinophils % (Manual) Platelet Estimate Basophilic Stippling Anisocytosis (manual) Sodium 140 Potassium 4.2 Chloride 98 Carbon Dioxide 29 Anion Gap 18 BUN 44 H Creatinine 5.1 H Est GFR ( Amer) 14 Est GFR (Non-Af Amer) 12 POC Glucose (mg/dL) 140 H 133 H Random Glucose 99 Calcium 9.0 Phosphorus 3.2 Magnesium 2.2 Total Bilirubin 0.7 AST 26 ALT 31 Alkaline Phosphatase 156 H D Total Protein 7.9 Albumin 3.3 L Globulin 4.6 H Albumin/Globulin Ratio 0.7 L Fingerstick Blood Sugar Results: 140 Assessment/Plan - Assessment and Plan (Free Text) Plan: 61-year-old male with a history of diabetes hypertension COPD, end-stage renal disease on dialysis, coronary disease s/p stenting, PVD, admitted with shortness of breath intubated with hypoxic respiratory failure. -COPD: continue bronchodialators, extubated, keep Spo2 b/w 90-92 -Chronic diastolic heart failure: continue anti-hypertensive -CAD/PVD: will benefit from anti-platelets and AV minna oseas, -ESRD on HD: HD to day with goal of negative balance -sepsis:resolving, blood culture NGSF -Blood cultures negative at 48 hours x 2 days -continue DVT/PUD ppx Patient remains hemodynamically stable. Tolerated puree diet. - Date & Time Date: 06/23/17 Time: 19:34
[2017-06-24] MEDS: Albuterol-Ipratrop 3 mg / 0.5 (3 ml) UD IH SCH ×4 (01:38→19:58)
[2017-06-24] MEDS: MethylPREDNISolone 40 mg Vial IVP SCH ×3 (03:13→10:04)
[2017-06-24] MEDS: Piperacill/Tazo 2.25gm in Dex 2.25 GM/50 ML BAG IVPB SCH ×4 (03:34→22:04)
[2017-06-24] MEDS: Levothyroxine 25 MCG TAB PO SCH (05:37)
[2017-06-24 06:36] LABS: BASO % 0.2 % (0.0-2.0); EOS % 0.2 % (0.0-4.0); HEMATOCRIT 37.1 % (35.0-51.0); LYMPH # 0.3 K/uL (1.0-4.3); LYMPH % 5.2 % (20.0-40.0); MEAN CELL VOLUME 91.1 fL (80.0-94.0); MEAN CORPUSCULAR HEMOGLOBIN 30.2 pg (27.0-31.0); MEAN CORPUSCULAR HGB CONC 33.1 g/dL (33.0-37.0); MEAN PLATELET VOLUME 8.8 fL (7.2-11.7); MONO # 0.2 K/uL (0.0-0.8); MONO % 4.1 % (0.0-10.0); PLATELET COUNT 227 K/uL (130-400); RED CELL DISTRIBUTION WIDTH 16.7 % (11.5-14.5); WHITE BLOOD COUNT 5.3 K/uL (4.8-10.8)
[2017-06-24 07:14] LABS: ALB/GLOB RATIO 0.9 (1.0-2.1); CALCIUM 8.9 mg/dl (8.6-10.4); MAGNESIUM 2.1 mg/dL (1.6-2.3); PHOSPHOROUS 4.2 mg/dL (2.5-4.5); POTASSIUM 4.7 mmol/L (3.6-5.2); TOTAL PROTEIN 7.5 g/dL (6.3-8.3)
[2017-06-24] MEDS: (Novolin R) Insulin Human Regular 100 units/ml vial SC SCH ×4 (07:20→21:38)
[2017-06-24 08:29] LABS: NEUTROPHIL 92 % (50-75); TOTAL CELLS COUNTED 100
--- NOTE | 2017-06-24 09:31 | CP.CCUPN ---
CCU Subjective - Physician Review Events Since Last Encounter (Free Text): 06/24/17 09:30 61-year-old male with a history of end-stage renal disease on dialysis cad, hypertension COPD diabetes admitted with shortness of breath. Patient initially admitted to the medical floor. The patient did become more hypotensive, and hypoxia, rapid response was called , at the time patient blood pressure varied and it was low side. When the team was trying to get the IV access patient become more lethargic, and unresponsive [facility] was called, intubated and brought into the ICU. Patient is now on ventilator, responding to deep stability Blood pressure is better now. Sedated also Patient has a multiple hospitalization in the past. Past medical history: End-stage renal disease on dialysis coronary artery disease, cardiac stent, congestive heart failure, hypertension, COPD and diabetes Surgical history including AV fistula. Social history: Patient from snf. Review of system: Patient is currently on ventilator. Sedated. Further history not available. Medication history noted from the chart Vital signs reviewed No neck vein distention noted Chest bilateral wheezing and rhonchi noted CVS regular heart sound, no murmur noted Abdomen soft, nontender. 1+ pedal edema Patient is currently sedated. Vital signs stable. Chest x-ray shoveling earlier diffuse congestive heart failure, possible aspiration pneumonia And currently extubated. Significant in the chair. Communicating very well. Not in any distress. Eating very small amount Clinically otherwise stable Assessment and recommendation: 61-year-old male with a history of end-stage renal disease on dialysis CAD hypertension COPD diabetes. On dialysis. Patient admitted to the ICU following a respiratory failure extubated. Patient is stable Patient can be transferred to the telemetry. Continue to monitor. CCU Objective - Vital Signs / Intake & Output Vital Signs (Last 4 hours): Vital Signs Pulse Resp BP Pulse Ox 06/24/17 09:00 101 H 37 H 100 06/24/17 08:47 99 H 39 H 123/60 99 06/24/17 08:00 98 H 25 H 100 06/24/17 07:47 99 H 28 H 129/61 99 06/24/17 07:00 97 H 38 H 100 06/24/17 06:47 96 H 45 H 142/65 100 06/24/17 06:00 97 H 34 H 100 06/24/17 05:48 99 H 37 H 150/70 Intake and Output (Last 8hrs): Intake & Output 06/23/17 06/24/17 06/24/17 22:59 06:59 14:59 Intake Total 100 50 Balance 100 50 Intake: Intake, IV Amount 50 50 Left Internal Jugular 50 50 Oral 50 - Physical Exam Head: Positive for: Atraumatic, Normocephalic Pupils: Positive for: Pinpoint, Other (patient fighting against light in eye. ) Extroacular Muscles: Positive for: EOMI Conjunctiva: Positive for: Icteric Mouth: Positive for: Moist Mucous Membranes, Other (intubated) Respiratory/Chest: Positive for: Wheezes, Decreased Breath Sounds, Rales Cardiovascular: Positive for: Regular Rate and Rhythm, Murmurs, Normal S1, S2 Abdomen: Positive for: Hernias (ventral). Negative for: Tenderness, Distention , Peritoneal Signs Upper Extremity: Positive for: Edema Lower Extremity: Positive for: Edema, Other (c/w PVD, shiny skin with poor hair growth) Neurological: Positive for: Other (intubated) Skin: Positive for: Warm, Dry Psychiatric: Positive for: Alert, Other (intubated) - Medications Active Medications: Active Medications Generic Name Dose Route Start Last Admin Trade Name Freq PRN Reason Stop Dose Admin Albumin Human 12.5 gm 06/21/17 10:30 06/21/17 12:16 Albumin Human 25% (12.5 Gm/50 Ml) IV 12.5 gm ONCE [facility] Administration Albuterol/Ipratropium 3 ml 06/24/17 02:00 06/24/17 07:41 Duoneb 3 Mg/0.5 Mg (3 Ml) Ud IH 3 ml RQ6 [facility] Administration Allopurinol 100 mg 06/21/17 10:00 06/23/17 10:42 Zyloprim PO 100 mg DAILY [facility] Administration Amlodipine Besylate 10 mg 06/21/17 10:00 06/23/17 10:00 Norvasc PO Not Given DAILY [facility] Aspirin 325 mg 06/21/17 08:00 06/24/17 08:42 Aspirin PO 325 mg 0800 [facility] Administration Bisacodyl 10 mg 06/22/17 09:42 06/22/17 10:45 Dulcolax [place] 10 mg DAILY PRN Administration Constipation Calcium Acetate 667 mg 06/20/17 23:30 Phoslo PO WM [facility] Carvedilol 6.25 mg 06/22/17 10:45 06/24/17 08:45 Coreg PO 6.25 mg 0800 [facility] Administration Clopidogrel Bisulfate 75 mg 06/21/17 08:00 06/24/17 08:43 Plavix PO 75 mg 0800 [facility] Administration Docusate Sodium 100 mg 06/21/17 10:00 06/23/17 19:23 Colace PO Not Given BID [facility] Famotidine 20 mg 06/22/17 10:00 06/23/17 10:29 Pepcid IVP 20 mg DAILY [facility] Administration Folic Acid 1 mg 06/21/17 10:00 06/23/17 10:30 Folic Acid PO 1 mg DAILY [facility] Administration Heparin Sodium (Porcine) 5,000 units 06/21/17 10:00 06/23/17 19:00 Heparin SC 5,000 units BID [facility] Administration Piperacillin Sod/Tazobactam Sod 2.25 gm in 50 mls @ 100 mls/hr 06/21/17 10:30 06/24/17 03:34 Zosyn 2.25 Gm Iv Premix IVPB 100 mls/hr Q6H [facility] Administration Insulin Human Regular 0 unit 06/21/17 12:00 06/24/17 07:20 Novolin R SC Not Given Q6H [facility] Protocol Levothyroxine Sodium 25 mcg 06/21/17 06:30 06/24/17 05:37 Synthroid PO 25 mcg 0630 [facility] Administration Methylprednisolone 20 mg 06/24/17 10:00 Solu-Medrol IVP 06/26/17 10:01 DAILY [facility] Minoxidil 2.5 mg 06/21/17 10:00 06/21/17 18:01 Minoxidil PO Not Given DAILY [facility] Rosuvastatin Calcium 5 mg 06/21/17 22:00 06/23/17 21:13 Crestor PO 5 mg HS [facility] Administration - Patient Studies Lab Studies: Microbiology Studies 06/20/17 10:50 Blood Culture - Preliminary Blood-Venous NO GROWTH AFTER 3 DAYS 06/20/17 09:50 Blood Culture - Preliminary Blood-Venous NO GROWTH AFTER 3 DAYS Lab Studies 06/24/17 06/24/17 06/24/17 Range/Units 06:28 06:28 05:36 WBC 5.3 (4.8-10.8) K/uL RBC 4.08 L (4.40-5.90) Mil/uL Hgb 12.3 (12.0-18.0) g/dL Hct 37.1 (35.0-51.0) % MCV 91.1 (80.0-94.0) fL MCH 30.2 (27.0-31.0) pg MCHC 33.1 (33.0-37.0) g/dL RDW 16.7 H (11.5-14.5) % Plt Count 227 (130-400) K/uL MPV 8.8 (7.2-11.7) fL Neut % (Auto) 90.3 H (50.0-75.0) % Lymph % (Auto) 5.2 L (20.0-40.0) % [place] % (Auto) 4.1 (0.0-10.0) % Eos % (Auto) 0.2 (0.0-4.0) % Baso % (Auto) 0.2 (0.0-2.0) % Neut # 4.8 (1.8-7.0) K/uL Lymph # 0.3 L (1.0-4.3) K/uL [place] # 0.2 (0.0-0.8) K/uL Eos # 0.0 (0.0-0.7) K/uL Baso # 0.0 (0.0-0.2) K/uL Neutrophils % (Manual) 92 H (50-75) % Band Neutrophils % 1 (0-2) % Lymphocytes % (Manual) 4 L (20-40) % Monocytes % (Manual) 3 (0-10) % Platelet Estimate Normal (NORMAL) Anisocytosis (manual) Slight Sodium 138 (132-148) mmol/L Potassium 4.7 (3.6-5.2) mmol/L Chloride 95 L (98-107) mmol/L Carbon Dioxide 24 (22-30) mmol/L Anion Gap 24 H (10-20) BUN 34 H (9-20) mg/dL Creatinine 3.8 H (0.8-1.5) mg/dL Est GFR ( Amer) 20 Est GFR (Non-Af Amer) 16 POC Glucose (mg/dL) 154 H (65-110) mg/dL Random Glucose 160 H (75-110) mg/dL Calcium 8.9 (8.6-10.4) mg/dl Phosphorus 4.2 (2.5-4.5) mg/dL Magnesium 2.1 (1.6-2.3) mg/dL Total Bilirubin 1.0 (0.2-1.3) mg/dL AST 26 (17-59) U/L ALT 23 (21-72) U/L Alkaline Phosphatase 145 H (38-126) U/L Total Protein 7.5 (6.3-8.3) g/dL Albumin 3.6 (3.5-5.0) g/dL Globulin 3.9 (2.2-3.9) gm/dL Albumin/Globulin Ratio 0.9 L (1.0-2.1) 06/23/17 06/23/17 06/23/17 Range/Units 23:40 18:09 11:59 WBC (4.8-10.8) K/uL RBC (4.40-5.90) Mil/uL Hgb (12.0-18.0) g/dL Hct (35.0-51.0) % MCV (80.0-94.0) fL MCH (27.0-31.0) pg MCHC (33.0-37.0) g/dL RDW (11.5-14.5) % Plt Count (130-400) K/uL MPV (7.2-11.7) fL Neut % (Auto) (50.0-75.0) % Lymph % (Auto) (20.0-40.0) % [place] % (Auto) (0.0-10.0) % Eos % (Auto) (0.0-4.0) % Baso % (Auto) (0.0-2.0) % Neut # (1.8-7.0) K/uL Lymph # (1.0-4.3) K/uL [place] # (0.0-0.8) K/uL Eos # (0.0-0.7) K/uL Baso # (0.0-0.2) K/uL Neutrophils % (Manual) (50-75) % Band Neutrophils % (0-2) % Lymphocytes % (Manual) (20-40) % Monocytes % (Manual) (0-10) % Platelet Estimate (NORMAL) Anisocytosis (manual) Sodium (132-148) mmol/L Potassium (3.6-5.2) mmol/L Chloride (98-107) mmol/L Carbon Dioxide (22-30) mmol/L Anion Gap (10-20) BUN (9-20) mg/dL Creatinine (0.8-1.5) mg/dL Est GFR ( Amer) Est GFR (Non-Af Amer) POC Glucose (mg/dL) 186 H 133 H 140 H (65-110) mg/dL Random Glucose (75-110) mg/dL Calcium (8.6-10.4) mg/dl Phosphorus (2.5-4.5) mg/dL Magnesium (1.6-2.3) mg/dL Total Bilirubin (0.2-1.3) mg/dL AST (17-59) U/L ALT (21-72) U/L Alkaline Phosphatase (38-126) U/L Total Protein (6.3-8.3) g/dL Albumin (3.5-5.0) g/dL Globulin (2.2-3.9) gm/dL Albumin/Globulin Ratio (1.0-2.1) Laboratory Results - last 24 hr 06/23/17 06/23/17 06/23/17 11:59 18:09 23:40 WBC RBC Hgb Hct MCV MCH MCHC RDW Plt Count MPV Neut % (Auto) Lymph % (Auto) [place] % (Auto) Eos % (Auto) Baso % (Auto) Neut # Lymph # [place] # Eos # Baso # Neutrophils % (Manual) Band Neutrophils % Lymphocytes % (Manual) Monocytes % (Manual) Platelet Estimate Anisocytosis (manual) Sodium Potassium Chloride Carbon Dioxide Anion Gap BUN Creatinine Est GFR ( Amer) Est GFR (Non-Af Amer) POC Glucose (mg/dL) 140 H 133 H 186 H Random Glucose Calcium Phosphorus Magnesium Total Bilirubin AST ALT Alkaline Phosphatase Total Protein Albumin Globulin Albumin/Globulin Ratio 06/24/17 06/24/17 06/24/17 05:36 06:28 06:28 WBC 5.3 RBC 4.08 L Hgb 12.3 Hct 37.1 MCV 91.1 MCH 30.2 MCHC 33.1 RDW 16.7 H Plt Count 227 MPV 8.8 Neut % (Auto) 90.3 H Lymph % (Auto) 5.2 L [place] % (Auto) 4.1 Eos % (Auto) 0.2 Baso % (Auto) 0.2 Neut # 4.8 Lymph # 0.3 L [place] # 0.2 Eos # 0.0 Baso # 0.0 Neutrophils % (Manual) 92 H Band Neutrophils % 1 Lymphocytes % (Manual) 4 L Monocytes % (Manual) 3 Platelet Estimate Normal Anisocytosis (manual) Slight Sodium 138 Potassium 4.7 Chloride 95 L Carbon Dioxide 24 Anion Gap 24 H BUN 34 H Creatinine 3.8 H Est GFR ( Amer) 20 Est GFR (Non-Af Amer) 16 POC Glucose (mg/dL) 154 H Random Glucose 160 H Calcium 8.9 Phosphorus 4.2 Magnesium 2.1 Total Bilirubin 1.0 AST 26 ALT 23 Alkaline Phosphatase 145 H Total Protein 7.5 Albumin 3.6 Globulin 3.9 Albumin/Globulin Ratio 0.9 L Fingerstick Blood Sugar Results: 140 Critical Care Progress Note - Nutrition Nutrition: Nutrition Category Date Time Status Pureed [Dysphagia/Modified Consistency Diet] [DIET] Diets 06/24/17 Breakfast Active
--- NOTE | 2017-06-24 09:39 | CP.PCM.PN ---
Subjective - Date & Time of Evaluation Date of Evaluation: 06/24/17 Time of Evaluation: 10:40 - Subjective Subjective: clinically same Objective - Vital Signs/Intake and Output Vital Signs (last 24 hours): Temp Pulse Resp BP Pulse Ox 98 F 101 H 37 H 123/60 100 06/24/17 04:00 06/24/17 09:00 06/24/17 09:00 06/24/17 08:47 06/24/17 09:00 Intake and Output: 06/24/17 06/24/17 06:59 18:59 Intake Total 150 Balance 150 - Medications Medications: Current Medications Albumin Human (Albumin Human 25% (12.5 Gm/50 Ml)) 12.5 gm IV ONCE [facility] Last Admin: 06/21/17 12:16 Dose: 12.5 gm Albuterol/Ipratropium (Duoneb 3 Mg/0.5 Mg (3 Ml) Ud) 3 ml IH RQ6 [facility] Last Admin: 06/24/17 07:41 Dose: 3 ml Allopurinol (Zyloprim) 100 mg PO DAILY [facility] Last Admin: 06/23/17 10:42 Dose: 100 mg Amlodipine Besylate (Norvasc) 10 mg PO DAILY [facility] Last Admin: 06/23/17 10:00 Dose: Not Given Aspirin (Aspirin) 325 mg PO 0800 [facility] Last Admin: 06/24/17 08:42 Dose: 325 mg Bisacodyl (Dulcolax) 10 mg [place] DAILY PRN PRN Reason: Constipation Last Admin: 06/22/17 10:45 Dose: 10 mg Calcium Acetate (Phoslo) 667 mg PO [facility] Carvedilol (Coreg) 6.25 mg PO 0800 [facility] Last Admin: 06/24/17 08:45 Dose: 6.25 mg Clopidogrel Bisulfate (Plavix) 75 mg PO 0800 [facility] Last Admin: 06/24/17 08:43 Dose: 75 mg Docusate Sodium (Colace) 100 mg PO BID [facility] Last Admin: 06/23/17 19:23 Dose: Not Given Famotidine (Pepcid) 20 mg IVP DAILY [facility] Last Admin: 06/23/17 10:29 Dose: 20 mg Folic Acid (Folic Acid) 1 mg PO DAILY [facility] Last Admin: 06/23/17 10:30 Dose: 1 mg Heparin Sodium (Porcine) (Heparin) 5,000 units SC BID [facility] Last Admin: 06/23/17 19:00 Dose: 5,000 units Piperacillin Sod/Tazobactam Sod (Zosyn 2.25 Gm Iv Premix) 2.25 gm in 50 mls @ 100 mls/hr IVPB Q6H [facility] Last Admin: 06/24/17 03:34 Dose: 100 mls/hr Insulin Human Regular (Novolin R) 0 unit SC ACHS [facility] PRN Reason: Protocol Levothyroxine Sodium (Synthroid) 25 mcg PO 0630 [facility] Last Admin: 06/24/17 05:37 Dose: 25 mcg Methylprednisolone (Solu-Medrol) 20 mg IVP DAILY [facility] Stop: 06/26/17 10:01 Minoxidil (Minoxidil) 2.5 mg PO DAILY [facility] Last Admin: 06/21/17 18:01 Dose: Not Given Rosuvastatin Calcium (Crestor) 5 mg PO HS [facility] Last Admin: 06/23/17 21:13 Dose: 5 mg - Labs Labs: 06/24/17 06:28 06/24/17 06:28 PT 11.4 SECONDS (9.7-12.2) 06/21/17 07:07 INR 1.0 06/21/17 07:07 APTT 46 SECONDS (21-34) H 06/21/17 07:07 - Constitutional Appears: Well - Head Exam Head Exam: ATRAUMATIC, NORMAL INSPECTION, NORMOCEPHALIC - Eye Exam Eye Exam: EOMI, Normal appearance, PERRL Pupil Exam: NORMAL ACCOMODATION, PERRL - ENT Exam ENT Exam: Mucous Membranes Moist, Normal Exam - Neck Exam Neck Exam: Full ROM, Normal Inspection. absent: Lymphadenopathy - Respiratory Exam Respiratory Exam: Decreased Breath Sounds - Cardiovascular Exam Cardiovascular Exam: REGULAR RHYTHM, +S1, +S2 - GI/Abdominal Exam GI & Abdominal Exam: Soft, Diminished Bowel Sounds - Rectal Exam Rectal Exam: Deferred
--- NOTE | 2017-06-24 09:41 | CARD ---
APPROVED REPORT EKG Measurement Heart [id number] <Conclusion> Sinus tachycardia ST & T wave abnormality, consider inferior ischemia Abnormal ECG
--- NOTE | 2017-06-24 15:53 | CP.PCM.PN ---
Subjective - Date & Time of Evaluation Date of Evaluation: 06/24/17 Time of Evaluation: 08:00 - Subjective Subjective: awake alert less sob Objective - Vital Signs/Intake and Output Vital Signs (last 24 hours): Temp Pulse Resp BP Pulse Ox 98.9 F 85 24 97/56 L 100 06/24/17 12:00 06/24/17 14:00 06/24/17 14:00 06/24/17 13:47 06/24/17 12:00 Intake and Output: 06/24/17 06/24/17 06:59 18:59 Intake Total 150 Balance 150 - Medications Medications: Current Medications Albumin Human (Albumin Human 25% (12.5 Gm/50 Ml)) 12.5 gm IV ONCE [facility] Last Admin: 06/21/17 12:16 Dose: 12.5 gm Albuterol/Ipratropium (Duoneb 3 Mg/0.5 Mg (3 Ml) Ud) 3 ml IH RQ6 [facility] Last Admin: 06/24/17 13:29 Dose: 3 ml Allopurinol (Zyloprim) 100 mg PO DAILY [facility] Last Admin: 06/24/17 11:00 Dose: 100 mg Amlodipine Besylate (Norvasc) 10 mg PO DAILY [facility] Last Admin: 06/24/17 09:28 Dose: 10 mg Aspirin (Aspirin) 325 mg PO 0800 [facility] Last Admin: 06/24/17 08:42 Dose: 325 mg Bisacodyl (Dulcolax) 10 mg [place] DAILY PRN PRN Reason: Constipation Last Admin: 06/22/17 10:45 Dose: 10 mg Calcium Acetate (Phoslo) 667 mg PO [facility] Carvedilol (Coreg) 6.25 mg PO 0800 [facility] Last Admin: 06/24/17 08:45 Dose: 6.25 mg Clopidogrel Bisulfate (Plavix) 75 mg PO 0800 [facility] Last Admin: 06/24/17 08:43 Dose: 75 mg Docusate Sodium (Colace) 100 mg PO BID [facility] Last Admin: 06/24/17 09:48 Dose: Not Given Famotidine (Pepcid) 20 mg IVP DAILY [facility] Last Admin: 06/24/17 09:27 Dose: 20 mg Folic Acid (Folic Acid) 1 mg PO DAILY [facility] Last Admin: 06/24/17 09:28 Dose: 1 mg Heparin Sodium (Porcine) (Heparin) 5,000 units SC BID [facility] Last Admin: 06/24/17 09:28 Dose: 5,000 units Piperacillin Sod/Tazobactam Sod (Zosyn 2.25 Gm Iv Premix) 2.25 gm in 50 mls @ 100 mls/hr IVPB Q6H [facility] Last Admin: 06/24/17 09:47 Dose: 100 mls/hr Insulin Human Regular (Novolin R) 0 unit [place] ACHS [facility] PRN Reason: Protocol Last Admin: 06/24/17 12:30 Dose: 4 unit Levothyroxine Sodium (Synthroid) 25 mcg PO 0630 [facility] Last Admin: 06/24/17 05:37 Dose: 25 mcg Methylprednisolone (Solu-Medrol) 20 mg IVP DAILY [facility] Stop: 06/26/17 10:01 Last Admin: 06/24/17 10:04 Dose: 20 mg Minoxidil (Minoxidil) 2.5 mg PO DAILY [facility] Last Admin: 06/21/17 18:01 Dose: Not Given Rosuvastatin Calcium (Crestor) 5 mg PO HS [facility] Last Admin: 06/23/17 21:13 Dose: 5 mg - Labs Labs: 06/24/17 06:28 06/24/17 06:28 PT 11.4 SECONDS (9.7-12.2) 06/21/17 07:07 INR 1.0 06/21/17 07:07 APTT 46 SECONDS (21-34) H 06/21/17 07:07 - Constitutional Appears: Non-toxic, Chronically Ill - Head Exam Head Exam: NORMOCEPHALIC - Eye Exam Eye Exam: PERRL - ENT Exam ENT Exam: Mucous Membranes Dry - Neck Exam Neck Exam: absent: Lymphadenopathy - Respiratory Exam Respiratory Exam: Decreased Breath Sounds - Cardiovascular Exam Cardiovascular Exam: REGULAR RHYTHM - GI/Abdominal Exam GI & Abdominal Exam: Distended - Rectal Exam Rectal Exam: Deferred - Exam Exam: NORMAL INSPECTION - Extremities Exam Extremities Exam: absent: Pedal Edema - Back Exam Back Exam: absent: CVA tenderness (L), CVA tenderness (R) Assessment and Plan - Assessment and Plan (Free Text) Assessment: cont iv antibiotics
--- NOTE | 2017-06-24 18:50 | PCM.FALL ---
Post Fall Progress Note - Post Fall Fall Date: 06/24/17 Fall Time: 18:40 Description of Fall: Patient stated he fell because he was trying to get out of bed after eating. Fall was unwitnessed, nurse states she last saw him less than 5 minutes prior. Patient was found on the floor, awake. Patient denies loss of consciousness, he states he fell weak and fell but hit the back of his head. Patient denied any pain anywhere else. - Post Fall Exam Vital Sign: Temp Pulse Resp BP Pulse Ox 98.2 F 87 20 127/70 99 06/24/17 16:00 06/24/17 18:00 06/24/17 18:00 06/24/17 17:47 06/24/17 16:00 Skull Exam: Negative for: Scalp wound, Scalp hematoma, Scalp depression, Ridge in skull Eye Exam: Positive for: Pupils reactive. Negative for: Pupils equal Ear Exam: Negative for: Discharge, Bleeding Nose Exam: Negative for: Discharge, Bleeding Skin Exam: Negative for: Colour, Lacerations, Grazes, Bruising Mouth Exam: Negative for: Tongue bitten, Teeth dislodge Neck Exam: Negative for: Tenderness, Tingling, Weakness Spinal Exam: Negative for: Tenderness, Tingling, Weakness Chest Exam: Negative for: Difficulty breathing, Tenderness in collar bones, Tenderness in ribs Abdomen Exam: Negative for: Tenderness Pelvic Exam: Negative for: Tenderness, Hematuria Arm Exam: Negative for: Deformity, Alteration in range of movement Impression/Plan: Unwitnessed fall with trauma to the head Ordered bed alarm to be turned on. Fall risk Ordered Head CT stat
--- NOTE | 2017-06-24 20:51 | CP.PCM.PN ---
Subjective - Date & Time of Evaluation Date of Evaluation: 06/23/17 Time of Evaluation: 18:15 - Subjective Subjective: Patient seen and evaluated feels better with improved breathing Objective - Vital Signs/Intake and Output Vital Signs (last 24 hours): Temp Pulse Resp BP Pulse Ox 98.2 F 87 20 127/70 99 06/24/17 16:00 06/24/17 18:00 06/24/17 18:00 06/24/17 17:47 06/24/17 16:00 - Medications Medications: Current Medications Albumin Human (Albumin Human 25% (12.5 Gm/50 Ml)) 12.5 gm IV ONCE [facility] Last Admin: 06/21/17 12:16 Dose: 12.5 gm Albuterol/Ipratropium (Duoneb 3 Mg/0.5 Mg (3 Ml) Ud) 3 ml IH RQ6 [facility] Last Admin: 06/24/17 19:58 Dose: Not Given Allopurinol (Zyloprim) 100 mg PO DAILY [facility] Last Admin: 06/24/17 11:00 Dose: 100 mg Amlodipine Besylate (Norvasc) 10 mg PO DAILY [facility] Last Admin: 06/24/17 09:28 Dose: 10 mg Aspirin (Aspirin) 325 mg PO 0800 [facility] Last Admin: 06/24/17 08:42 Dose: 325 mg Bisacodyl (Dulcolax) 10 mg [place] DAILY PRN PRN Reason: Constipation Last Admin: 06/22/17 10:45 Dose: 10 mg Calcium Acetate (Phoslo) 667 mg PO [facility] Carvedilol (Coreg) 6.25 mg PO 0800 [facility] Last Admin: 06/24/17 08:45 Dose: 6.25 mg Clopidogrel Bisulfate (Plavix) 75 mg PO 0800 [facility] Last Admin: 06/24/17 08:43 Dose: 75 mg Docusate Sodium (Colace) 100 mg PO BID [facility] Last Admin: 06/24/17 09:48 Dose: Not Given Famotidine (Pepcid) 20 mg IVP DAILY [facility] Last Admin: 06/24/17 09:27 Dose: 20 mg Folic Acid (Folic Acid) 1 mg PO DAILY [facility] Last Admin: 06/24/17 09:28 Dose: 1 mg Heparin Sodium (Porcine) (Heparin) 5,000 units SC BID [facility] Last Admin: 06/24/17 20:43 Dose: 5,000 units Piperacillin Sod/Tazobactam Sod (Zosyn 2.25 Gm Iv Premix) 2.25 gm in 50 mls @ 100 mls/hr IVPB Q6H [facility] Last Admin: 06/24/17 16:55 Dose: 100 mls/hr Vancomycin/Sodium Chloride (Vancomycin 1 Gm/Ns 200 Ml) 1 gm in 200 mls @ 133.333 mls/hr IVPB MWF [facility] Insulin Human Regular (Novolin R) 0 unit SC ACHS [facility] PRN Reason: Protocol Last Admin: 06/24/17 16:54 Dose: 4 unit Levothyroxine Sodium (Synthroid) 25 mcg PO 0630 [facility] Last Admin: 06/24/17 05:37 Dose: 25 mcg Methylprednisolone (Solu-Medrol) 20 mg IVP DAILY [facility] Stop: 06/26/17 10:01 Last Admin: 06/24/17 10:04 Dose: 20 mg Minoxidil (Minoxidil) 2.5 mg PO DAILY [facility] Last Admin: 06/21/17 18:01 Dose: Not Given Rosuvastatin Calcium (Crestor) 5 mg PO HS [facility] Last Admin: 06/23/17 21:13 Dose: 5 mg - Labs Labs: 06/24/17 06:28 06/24/17 06:28 PT 11.4 SECONDS (9.7-12.2) 06/21/17 07:07 INR 1.0 06/21/17 07:07 APTT 46 SECONDS (21-34) H 06/21/17 07:07
--- NOTE | 2017-06-24 20:52 | CP.PCM.PN ---
Subjective - Date & Time of Evaluation Date of Evaluation: 06/24/17 Time of Evaluation: 07:25 - Subjective Subjective: Patient seen and evaluated More awake and comfortable Objective - Vital Signs/Intake and Output Vital Signs (last 24 hours): Temp Pulse Resp BP Pulse Ox 98.2 F 87 20 127/70 99 06/24/17 16:00 06/24/17 18:00 06/24/17 18:00 06/24/17 17:47 06/24/17 16:00 - Medications Medications: Current Medications Albumin Human (Albumin Human 25% (12.5 Gm/50 Ml)) 12.5 gm IV ONCE [facility] Last Admin: 06/21/17 12:16 Dose: 12.5 gm Albuterol/Ipratropium (Duoneb 3 Mg/0.5 Mg (3 Ml) Ud) 3 ml IH RQ6 [facility] Last Admin: 06/24/17 19:58 Dose: Not Given Allopurinol (Zyloprim) 100 mg PO DAILY [facility] Last Admin: 06/24/17 11:00 Dose: 100 mg Amlodipine Besylate (Norvasc) 10 mg PO DAILY [facility] Last Admin: 06/24/17 09:28 Dose: 10 mg Aspirin (Aspirin) 325 mg PO 0800 [facility] Last Admin: 06/24/17 08:42 Dose: 325 mg Bisacodyl (Dulcolax) 10 mg [place] DAILY PRN PRN Reason: Constipation Last Admin: 06/22/17 10:45 Dose: 10 mg Calcium Acetate (Phoslo) 667 mg PO [facility] Carvedilol (Coreg) 6.25 mg PO 0800 [facility] Last Admin: 06/24/17 08:45 Dose: 6.25 mg Clopidogrel Bisulfate (Plavix) 75 mg PO 0800 [facility] Last Admin: 06/24/17 08:43 Dose: 75 mg Docusate Sodium (Colace) 100 mg PO BID [facility] Last Admin: 06/24/17 09:48 Dose: Not Given Famotidine (Pepcid) 20 mg IVP DAILY [facility] Last Admin: 06/24/17 09:27 Dose: 20 mg Folic Acid (Folic Acid) 1 mg PO DAILY [facility] Last Admin: 06/24/17 09:28 Dose: 1 mg Heparin Sodium (Porcine) (Heparin) 5,000 units SC BID [facility] Last Admin: 06/24/17 20:43 Dose: 5,000 units Piperacillin Sod/Tazobactam Sod (Zosyn 2.25 Gm Iv Premix) 2.25 gm in 50 mls @ 100 mls/hr IVPB Q6H [facility] Last Admin: 06/24/17 16:55 Dose: 100 mls/hr Vancomycin/Sodium Chloride (Vancomycin 1 Gm/Ns 200 Ml) 1 gm in 200 mls @ 133.333 mls/hr IVPB MWF [facility] Insulin Human Regular (Novolin R) 0 unit SC ACHS [facility] PRN Reason: Protocol Last Admin: 06/24/17 16:54 Dose: 4 unit Levothyroxine Sodium (Synthroid) 25 mcg PO 0630 [facility] Last Admin: 06/24/17 05:37 Dose: 25 mcg Methylprednisolone (Solu-Medrol) 20 mg IVP DAILY [facility] Stop: 06/26/17 10:01 Last Admin: 06/24/17 10:04 Dose: 20 mg Minoxidil (Minoxidil) 2.5 mg PO DAILY [facility] Last Admin: 06/21/17 18:01 Dose: Not Given Rosuvastatin Calcium (Crestor) 5 mg PO HS [facility] Last Admin: 06/23/17 21:13 Dose: 5 mg - Labs Labs: 06/24/17 06:28 06/24/17 06:28 PT 11.4 SECONDS (9.7-12.2) 06/21/17 07:07 INR 1.0 06/21/17 07:07 APTT 46 SECONDS (21-34) H 06/21/17 07:07
[2017-06-25] MEDS: Albuterol-Ipratrop 3 mg / 0.5 (3 ml) UD IH SCH ×4 (02:25→19:41)
[2017-06-25] MEDS: Piperacill/Tazo 2.25gm in Dex 2.25 GM/50 ML BAG IVPB SCH ×4 (04:19→22:01)
[2017-06-25] MEDS: Levothyroxine 25 MCG TAB PO SCH (06:14)
[2017-06-25] MEDS: (Novolin R) Insulin Human Regular 100 units/ml vial SC SCH ×4 (07:30→21:42)
[2017-06-25] MEDS ORDERED: Vancomycin 1 gm/NS 200 ml 1 GM/200 ML BAG IVPB SCH (09:00)
--- NOTE | 2017-06-25 09:09 | CT ---
PROCEDURE: CT HEAD WITHOUT CONTRAST. HISTORY: s/p unwitnessed fall, head trauma COMPARISON: 06/21/2017 TECHNIQUE: Axial computed tomography images were obtained through the head/brain without intravenous contrast. Radiation dose: Total exam DLP = 987 mGy-cm. This CT exam was performed using one or more of the following dose reduction techniques: Automated exposure control, adjustment of the mA and/or kV according to patient size, and/or use of iterative reconstruction technique. FINDINGS: HEMORRHAGE: No intracranial hemorrhage. BRAIN: Moderate cerebral volume loss and accompanying decreased attenuation of the periventricular white matter secondary to chronic microangiopathic change. Punctate lacunar infarct in the left thalamus. VENTRICLES: Unremarkable. No hydrocephalus. CALVARIUM: Unremarkable. PARANASAL SINUSES: Mild fluid within the right maxillary sinus. MASTOID AIR CELLS: Unremarkable as visualized. No inflammatory changes. OTHER FINDINGS: Intracranial atherosclerotic calcification. IMPRESSION: No acute intracranial abnormality. Chronic microvascular ischemic change. If symptoms persists, consider further evaluation MRI. These findings were preliminarily reported at 8:25 p.m. on 06/24/[address] Joel Jurado from [facility].
[2017-06-25] MEDS: MethylPREDNISolone 40 mg Vial IVP SCH (10:17)
[2017-06-25 10:59] LABS: BASO % 0.4 % (0.0-2.0); EOS # 0.2 K/uL (0.0-0.7); EOS % 2.3 % (0.0-4.0); HEMATOCRIT 33.6 % (35.0-51.0); LYMPH # 0.7 K/uL (1.0-4.3); LYMPH % 10.1 % (20.0-40.0); MEAN CELL VOLUME 90.6 fL (80.0-94.0); MEAN CORPUSCULAR HEMOGLOBIN 29.8 pg (27.0-31.0); MEAN CORPUSCULAR HGB CONC 32.9 g/dL (33.0-37.0); MEAN PLATELET VOLUME 8.7 fL (7.2-11.7); MONO # 0.7 K/uL (0.0-0.8); RED CELL DISTRIBUTION WIDTH 16.4 % (11.5-14.5); WHITE BLOOD COUNT 6.8 K/uL (4.8-10.8)
[2017-06-25 11:47] LABS: ALB/GLOB RATIO 0.7 (1.0-2.1); BILIRUBIN,TOTAL 0.9 mg/dL (0.2-1.3); CALCIUM 8.5 mg/dl (8.6-10.4); MAGNESIUM 2.2 mg/dL (1.6-2.3); PHOSPHOROUS 4.2 mg/dL (2.5-4.5); POTASSIUM 4.4 mmol/L (3.6-5.2); TOTAL PROTEIN 8.2 g/dL (6.3-8.3)
--- NOTE | 2017-06-25 14:50 | CP.PCM.PN ---
Subjective - Date & Time of Evaluation Date of Evaluation: 06/25/17 Time of Evaluation: 08:00 - Subjective Subjective: Patient seen and evaluated Sitting in bed and comfortable Improved breathing and no chest pain Objective - Vital Signs/Intake and Output Vital Signs (last 24 hours): Temp Pulse Resp BP Pulse Ox 97.2 F L 80 22 92/55 L 99 06/25/17 12:00 06/25/17 12:48 06/25/17 12:48 06/25/17 12:48 06/25/17 08:00 Intake and Output: 06/25/17 06/25/17 06:59 18:59 Intake Total 300 730 Balance 300 730 - Medications Medications: Current Medications Albumin Human (Albumin Human 25% (12.5 Gm/50 Ml)) 12.5 gm IV ONCE [facility] Last Admin: 06/21/17 12:16 Dose: 12.5 gm Albuterol/Ipratropium (Duoneb 3 Mg/0.5 Mg (3 Ml) Ud) 3 ml RQ6 [facility] Last Admin: 06/25/17 13:42 Dose: 3 ml Allopurinol (Zyloprim) 100 mg PO DAILY [facility] Last Admin: 06/25/17 10:21 Dose: 100 mg Amlodipine Besylate (Norvasc) 10 mg PO DAILY [facility] Last Admin: 06/25/17 10:24 Dose: Not Given Aspirin (Aspirin) 325 mg PO 0800 [facility] Last Admin: 06/25/17 08:22 Dose: 325 mg Bisacodyl (Dulcolax) 10 mg [place] DAILY PRN PRN Reason: Constipation Last Admin: 06/22/17 10:45 Dose: 10 mg Calcium Acetate (Phoslo) [address] [facility] Carvedilol (Coreg) 6.25 mg PO 0800 [facility] Last Admin: 06/25/17 08:22 Dose: 6.25 mg Clopidogrel Bisulfate (Plavix) 75 mg PO 0800 [facility] Last Admin: 06/25/17 08:22 Dose: 75 mg Docusate Sodium (Colace) 100 mg PO BID [facility] Last Admin: 06/25/17 10:18 Dose: 100 mg Famotidine (Pepcid) 20 mg IVP DAILY [facility] Last Admin: 06/25/17 10:17 Dose: 20 mg Folic Acid (Folic Acid) 1 mg PO DAILY [facility] Last Admin: 06/25/17 10:18 Dose: 1 mg Heparin Sodium (Porcine) (Heparin) 5,000 units SC BID [facility] Last Admin: 06/25/17 10:18 Dose: 5,000 units Piperacillin Sod/Tazobactam Sod (Zosyn 2.25 Gm Iv Premix) 2.25 gm in 50 mls @ 100 mls/hr IVPB Q6H [facility] Last Admin: 06/25/17 10:16 Dose: 100 mls/hr Vancomycin/Sodium Chloride (Vancomycin 1 Gm/Ns 200 Ml) 1 gm in 200 mls @ 133.333 mls/hr IVPB MWF [facility] Last Admin: 06/25/17 11:14 Dose: 133.333 mls/hr Insulin Human Regular (Novolin R) 0 unit [place] ACHS [facility] PRN Reason: Protocol Last Admin: 06/25/17 13:21 Dose: 2 unit Levothyroxine Sodium (Synthroid) 25 mcg PO 0630 [facility] Last Admin: 06/25/17 06:14 Dose: 25 mcg Methylprednisolone (Solu-Medrol) 20 mg IVP DAILY [facility] Stop: 06/26/17 10:01 Last Admin: 06/25/17 10:17 Dose: 20 mg Minoxidil (Minoxidil) 2.5 mg PO DAILY [facility] Last Admin: 06/21/17 18:01 Dose: Not Given Rosuvastatin Calcium (Crestor) 5 mg PO HS [facility] Last Admin: 06/24/17 22:03 Dose: 5 mg - Labs Labs: 06/25/17 10:48 06/25/17 10:48 PT 11.4 SECONDS (9.7-12.2) 06/21/17 07:07 INR 1.0 06/21/17 07:07 APTT 46 SECONDS (21-34) H 06/21/17 07:07
--- NOTE | 2017-06-25 15:54 | CP.PCM.PN ---
Subjective - Date & Time of Evaluation Date of Evaluation: 06/25/17 Time of Evaluation: 10:30 - Subjective Subjective: patient seen and examined more lethargic Dyspnea minimal exertion Status post extubation Afebrile On hemodialysis being treated for COPD and pneumonia Objective - Vital Signs/Intake and Output Vital Signs (last 24 hours): Temp Pulse Resp BP Pulse Ox 97.2 F L 79 17 142/62 99 06/25/17 12:00 06/25/17 14:00 06/25/17 14:00 06/25/17 14:00 06/25/17 08:00 Intake and Output: 06/25/17 06/25/17 06:59 18:59 Intake Total 300 730 Balance 300 730 - Medications Medications: Current Medications Albumin Human (Albumin Human 25% (12.5 Gm/50 Ml)) 12.5 gm IV ONCE [facility] Last Admin: 06/21/17 12:16 Dose: 12.5 gm Albuterol/Ipratropium (Duoneb 3 Mg/0.5 Mg (3 Ml) Ud) 3 ml RQ6 [facility] Last Admin: 06/25/17 13:42 Dose: 3 ml Allopurinol (Zyloprim) 100 mg PO DAILY [facility] Last Admin: 06/25/17 10:21 Dose: 100 mg Amlodipine Besylate (Norvasc) 10 mg PO DAILY [facility] Last Admin: 06/25/17 10:24 Dose: Not Given Aspirin (Aspirin) 325 mg PO 0800 [facility] Last Admin: 06/25/17 08:22 Dose: 325 mg Bisacodyl (Dulcolax) 10 mg [place] DAILY PRN PRN Reason: Constipation Last Admin: 06/22/17 10:45 Dose: 10 mg Calcium Acetate (Phoslo) 667 mg PO [facility] Carvedilol (Coreg) 6.25 mg PO 0800 [facility] Last Admin: 06/25/17 08:22 Dose: 6.25 mg Clopidogrel Bisulfate (Plavix) 75 mg PO 0800 [facility] Last Admin: 06/25/17 08:22 Dose: 75 mg Docusate Sodium (Colace) 100 mg PO BID [facility] Last Admin: 06/25/17 10:18 Dose: 100 mg Famotidine (Pepcid) 20 mg IVP DAILY [facility] Last Admin: 06/25/17 10:17 Dose: 20 mg Folic Acid (Folic Acid) 1 mg PO DAILY [facility] Last Admin: 06/25/17 10:18 Dose: 1 mg Heparin Sodium (Porcine) (Heparin) 5,000 units SC BID [facility] Last Admin: 06/25/17 10:18 Dose: 5,000 units Piperacillin Sod/Tazobactam Sod (Zosyn 2.25 Gm Iv Premix) 2.25 gm in 50 mls @ 100 mls/hr IVPB Q6H [facility] Last Admin: 06/25/17 10:16 Dose: 100 mls/hr Vancomycin/Sodium Chloride (Vancomycin 1 Gm/Ns 200 Ml) 1 gm in 200 mls @ 133.333 mls/hr IVPB TTS [facility] Stop: 07/01/17 10:01 Insulin Human Regular (Novolin R) 0 unit SC ACHS [facility] PRN Reason: Protocol Last Admin: 06/25/17 13:21 Dose: 2 unit Levothyroxine Sodium (Synthroid) 25 mcg PO 0630 [facility] Last Admin: 06/25/17 06:14 Dose: 25 mcg Methylprednisolone (Solu-Medrol) 20 mg IVP DAILY [facility] Stop: 06/26/17 10:01 Last Admin: 06/25/17 10:17 Dose: 20 mg Minoxidil (Minoxidil) 2.5 mg PO DAILY [facility] Last Admin: 06/21/17 18:01 Dose: Not Given Rosuvastatin Calcium (Crestor) 5 mg PO HS [facility] Last Admin: 06/24/17 22:03 Dose: 5 mg - Labs Labs: 06/25/17 10:48 06/25/17 10:48 PT 11.4 SECONDS (9.7-12.2) 06/21/17 07:07 INR 1.0 06/21/17 07:07 APTT 46 SECONDS (21-34) H 06/21/17 07:07 - Head Exam Head Exam: ATRAUMATIC, NORMOCEPHALIC - ENT Exam ENT Exam: Mucous Membranes Moist - Neck Exam Neck Exam: Normal Inspection - Respiratory Exam Respiratory Exam: Decreased Breath Sounds - Cardiovascular Exam Cardiovascular Exam: REGULAR RHYTHM - GI/Abdominal Exam GI & Abdominal Exam: Soft, Normal Bowel Sounds - Extremities Exam Extremities Exam: Normal Inspection - Neurological Exam Neurological Exam: Awake, Oriented x3 Assessment and Plan (1) Acute respiratory failure Assessment & Plan: status post extubation Lethargic Followup ABG Continue nebulizer Steroids Antibiotics Status: Acute (2) Pneumonia Status: Acute (3) ESRD (end stage renal disease) on dialysis Status: Chronic
--- NOTE | 2017-06-25 19:27 | CP.PCM.PN ---
Subjective - Date & Time of Evaluation Date of Evaluation: 06/25/17 Time of Evaluation: 12:00 - Subjective Subjective: clinically same Objective - Vital Signs/Intake and Output Vital Signs (last 24 hours): Temp Pulse Resp BP Pulse Ox 98.6 F 74 22 100/50 L 99 06/25/17 16:00 06/25/17 16:01 06/25/17 16:01 06/25/17 16:01 06/25/17 08:00 Intake and Output: 06/25/17 06/26/17 18:59 06:59 Intake Total 730 Balance 730 - Medications Medications: Current Medications Albumin Human (Albumin Human 25% (12.5 Gm/50 Ml)) 12.5 gm IV ONCE [facility] Last Admin: 06/21/17 12:16 Dose: 12.5 gm Albuterol/Ipratropium (Duoneb 3 Mg/0.5 Mg (3 Ml) Ud) 3 ml IH RQ6 [facility] Last Admin: 06/25/17 13:42 Dose: 3 ml Allopurinol (Zyloprim) 100 mg PO DAILY [facility] Last Admin: 06/25/17 10:21 Dose: 100 mg Amlodipine Besylate (Norvasc) 10 mg PO DAILY [facility] Last Admin: 06/25/17 10:24 Dose: Not Given Aspirin (Aspirin) 325 mg PO 0800 [facility] Last Admin: 06/25/17 08:22 Dose: 325 mg Bisacodyl (Dulcolax) 10 mg [place] DAILY PRN PRN Reason: Constipation Last Admin: 06/22/17 10:45 Dose: 10 mg Calcium Acetate (Phoslo) 667 mg PO [facility] Carvedilol (Coreg) 6.25 mg PO 0800 [facility] Last Admin: 06/25/17 08:22 Dose: 6.25 mg Clopidogrel Bisulfate (Plavix) 75 mg PO 0800 [facility] Last Admin: 06/25/17 08:22 Dose: 75 mg Docusate Sodium (Colace) 100 mg PO BID [facility] Last Admin: 06/25/17 17:05 Dose: 100 mg Famotidine (Pepcid) 20 mg IVP DAILY [facility] Last Admin: 06/25/17 10:17 Dose: 20 mg Folic Acid (Folic Acid) 1 mg PO DAILY [facility] Last Admin: 06/25/17 10:18 Dose: 1 mg Heparin Sodium (Porcine) (Heparin) 5,000 units SC BID [facility] Last Admin: 06/25/17 17:05 Dose: 5,000 units Piperacillin Sod/Tazobactam Sod (Zosyn 2.25 Gm Iv Premix) 2.25 gm in 50 mls @ 100 mls/hr IVPB Q6H [facility] Last Admin: 06/25/17 17:07 Dose: 100 mls/hr Vancomycin/Sodium Chloride (Vancomycin 1 Gm/Ns 200 Ml) 1 gm in 200 mls @ 133.333 mls/hr IVPB TTS [facility] Stop: 07/01/17 10:01 Insulin Human Regular (Novolin R) 0 unit SC ACHS [facility] PRN Reason: Protocol Last Admin: 06/25/17 17:06 Dose: 4 unit Levothyroxine Sodium (Synthroid) 25 mcg PO 0630 [facility] Last Admin: 06/25/17 06:14 Dose: 25 mcg Methylprednisolone (Solu-Medrol) 20 mg IVP DAILY [facility] Stop: 06/26/17 10:01 Last Admin: 06/25/17 10:17 Dose: 20 mg Minoxidil (Minoxidil) 2.5 mg PO DAILY [facility] Last Admin: 06/21/17 18:01 Dose: Not Given Rosuvastatin Calcium (Crestor) 5 mg PO HS [facility] Last Admin: 06/24/17 22:03 Dose: 5 mg - Labs Labs: 06/25/17 10:48 06/25/17 10:48 PT 11.4 SECONDS (9.7-12.2) 06/21/17 07:07 INR 1.0 06/21/17 07:07 APTT 46 SECONDS (21-34) H 06/21/17 07:07 - Constitutional Appears: Well - Head Exam Head Exam: ATRAUMATIC, NORMAL INSPECTION, NORMOCEPHALIC - Eye Exam Eye Exam: EOMI, Normal appearance, PERRL Pupil Exam: NORMAL ACCOMODATION, PERRL - ENT Exam ENT Exam: Mucous Membranes Moist, Normal Exam - Neck Exam Neck Exam: Full ROM, Normal Inspection. absent: Lymphadenopathy - Respiratory Exam Respiratory Exam: Decreased Breath Sounds - Cardiovascular Exam Cardiovascular Exam: REGULAR RHYTHM, +S1, +S2 - GI/Abdominal Exam GI & Abdominal Exam: Soft, Diminished Bowel Sounds - Rectal Exam Rectal Exam: Deferred
[2017-06-26] MEDS: Albuterol-Ipratrop 3 mg / 0.5 (3 ml) UD IH SCH ×4 (02:15→19:33)
[2017-06-26] MEDS: Piperacill/Tazo 2.25gm in Dex 2.25 GM/50 ML BAG IVPB SCH ×3 (04:05→15:55)
[2017-06-26] MEDS: Levothyroxine 25 MCG TAB PO SCH (05:33)
[2017-06-26] MEDS: (Novolin R) Insulin Human Regular 100 units/ml vial SC SCH ×3 (07:54→18:24)
[2017-06-26] MEDS ORDERED: Albumin Human 25% (12.5 gm/50 ml) IV SCH ×2 (09:54→10:00)
[2017-06-26] MEDS: Vancomycin 1 gm/NS 200 ml 1 GM/200 ML BAG IVPB SCH ×2 (10:03→13:48)
[2017-06-26] MEDS: MethylPREDNISolone 40 mg Vial IVP SCH (10:03)
--- NOTE | 2017-06-26 11:13 | CP.PCM.PN ---
Subjective - Date & Time of Evaluation Date of Evaluation: 06/26/17 Time of Evaluation: 07:00 - Subjective Subjective: doing better + MRSA sputum Objective - Vital Signs/Intake and Output Vital Signs (last 24 hours): Temp Pulse Resp BP Pulse Ox 98 F 81 20 168/87 H 97 06/26/17 07:17 06/26/17 11:04 06/26/17 07:17 06/26/17 11:04 06/26/17 07:17 Intake and Output: 06/26/17 06/26/17 06:59 18:59 Intake Total 170 Balance 170 - Medications Medications: Current Medications Albumin Human (Albumin Human 25% (12.5 Gm/50 Ml)) 12.5 gm IV TuThSa [facility] Albumin Human (Albumin Human 25% (12.5 Gm/50 Ml)) 12.5 gm IV TuThSa [facility] Last Admin: 06/26/17 10:14 Dose: 12.5 gm Albuterol/Ipratropium (Duoneb 3 Mg/0.5 Mg (3 Ml) Ud) 3 ml RQ6 [facility] Last Admin: 06/26/17 07:23 Dose: Not Given Allopurinol (Zyloprim) 100 mg PO DAILY [facility] Last Admin: 06/26/17 10:03 Dose: Not Given Amlodipine Besylate (Norvasc) 10 mg PO DAILY [facility] Last Admin: 06/26/17 10:03 Dose: Not Given Aspirin (Aspirin) 325 mg PO 0800 [facility] Last Admin: 06/26/17 07:55 Dose: 325 mg Bisacodyl (Dulcolax) 10 mg [place] DAILY PRN PRN Reason: Constipation Last Admin: 06/22/17 10:45 Dose: 10 mg Calcium Acetate (Phoslo) 667 mg PO [facility] Carvedilol (Coreg) 6.25 mg PO 0800 [facility] Last Admin: 06/26/17 07:55 Dose: Not Given Clopidogrel Bisulfate (Plavix) 75 mg PO 0800 [facility] Last Admin: 06/26/17 07:55 Dose: 75 mg Docusate Sodium (Colace) 100 mg PO BID [facility] Last Admin: 06/26/17 10:02 Dose: Not Given Famotidine (Pepcid) 20 mg IVP DAILY [facility] Last Admin: 06/26/17 10:03 Dose: Not Given Folic Acid (Folic Acid) 1 mg PO DAILY [facility] Last Admin: 06/26/17 10:02 Dose: Not Given Heparin Sodium (Porcine) (Heparin) 5,000 units SC BID [facility] Last Admin: 06/26/17 10:03 Dose: Not Given Piperacillin Sod/Tazobactam Sod (Zosyn 2.25 Gm Iv Premix) 2.25 gm in 50 mls @ 100 mls/hr IVPB Q6H [facility] Last Admin: 06/26/17 04:05 Dose: 100 mls/hr Vancomycin/Sodium Chloride (Vancomycin 1 Gm/Ns 200 Ml) 1 gm in 200 mls @ 133.333 mls/hr IVPB TTS [facility] Stop: 07/01/17 10:01 Last Admin: 06/26/17 10:03 Dose: Not Given Insulin Human Regular (Novolin R) 0 unit SC ACHS [facility] PRN Reason: Protocol Last Admin: 06/26/17 07:54 Dose: 2 unit Levothyroxine Sodium (Synthroid) 25 mcg PO 0630 [facility] Last Admin: 06/26/17 05:33 Dose: 25 mcg Minoxidil (Minoxidil) 2.5 mg PO DAILY [facility] Last Admin: 06/21/17 18:01 Dose: Not Given Rosuvastatin Calcium (Crestor) 5 mg PO HS [facility] Last Admin: 06/25/17 21:46 Dose: 5 mg - Labs Labs: 06/25/17 10:48 06/25/17 10:48 PT 11.4 SECONDS (9.7-12.2) 06/21/17 07:07 INR 1.0 06/21/17 07:07 APTT 46 SECONDS (21-34) H 06/21/17 07:07 - Constitutional Appears: Non-toxic, Cachectic, Chronically Ill - Head Exam Head Exam: NORMOCEPHALIC - Eye Exam Eye Exam: PERRL - ENT Exam ENT Exam: Mucous Membranes Dry - Neck Exam Neck Exam: absent: Lymphadenopathy - Respiratory Exam Respiratory Exam: Decreased Breath Sounds - Cardiovascular Exam Cardiovascular Exam: REGULAR RHYTHM - GI/Abdominal Exam GI & Abdominal Exam: Distended Assessment and Plan - Assessment and Plan (Free Text) Plan: cont rx pneumonia / sepsis x 14 days
--- NOTE | 2017-06-26 14:29 | CP.PCM.PN ---
Subjective - Date & Time of Evaluation Date of Evaluation: 06/26/17 Time of Evaluation: 08:00 - Subjective Subjective: patient seen and examined lying Comfortably in no acute distress denies cough, denies fever or chills, denies chest pain On hemodialysis Objective - Vital Signs/Intake and Output Vital Signs (last 24 hours): Temp Pulse Resp BP Pulse Ox 97.7 F 83 18 102/60 97 06/26/17 09:00 06/26/17 12:23 06/26/17 09:00 06/26/17 12:23 06/26/17 07:17 Intake and Output: 06/26/17 06/26/17 06:59 18:59 Intake Total 170 Balance 170 - Medications Medications: Current Medications Albumin Human (Albumin Human 25% (12.5 Gm/50 Ml)) 12.5 gm IV TuThSa [facility] Albumin Human (Albumin Human 25% (12.5 Gm/50 Ml)) 12.5 gm IV TuThSa [facility] Last Admin: 06/26/17 10:14 Dose: 12.5 gm Albuterol/Ipratropium (Duoneb 3 Mg/0.5 Mg (3 Ml) Ud) 3 ml RQ6 [facility] Last Admin: 06/26/17 13:16 Dose: Not Given Allopurinol (Zyloprim) 100 mg PO DAILY [facility] Last Admin: 06/26/17 10:03 Dose: Not Given Amlodipine Besylate (Norvasc) 10 mg PO DAILY [facility] Last Admin: 06/26/17 10:03 Dose: Not Given Aspirin (Aspirin) 325 mg PO 0800 [facility] Last Admin: 06/26/17 07:55 Dose: 325 mg Bisacodyl (Dulcolax) 10 mg [place] DAILY PRN PRN Reason: Constipation Last Admin: 06/22/17 10:45 Dose: 10 mg Calcium Acetate (Phoslo) 667 mg PO [facility] Carvedilol (Coreg) 6.25 mg PO 0800 [facility] Last Admin: 06/26/17 07:55 Dose: Not Given Clopidogrel Bisulfate (Plavix) 75 mg PO 0800 [facility] Last Admin: 06/26/17 07:55 Dose: 75 mg Docusate Sodium (Colace) 100 mg PO BID [facility] Last Admin: 06/26/17 10:02 Dose: Not Given Famotidine (Pepcid) 20 mg IVP DAILY [facility] Last Admin: 06/26/17 10:03 Dose: Not Given Folic Acid (Folic Acid) 1 mg PO DAILY [facility] Last Admin: 06/26/17 10:02 Dose: Not Given Heparin Sodium (Porcine) (Heparin) 5,000 units SC BID [facility] Last Admin: 06/26/17 10:03 Dose: Not Given Piperacillin Sod/Tazobactam Sod (Zosyn 2.25 Gm Iv Premix) 2.25 gm in 50 mls @ 100 mls/hr IVPB Q6H [facility] Last Admin: 06/26/17 12:53 Dose: Not Given Vancomycin/Sodium Chloride (Vancomycin 1 Gm/Ns 200 Ml) 1 gm in 200 mls @ 133.333 mls/hr IVPB TTS [facility] Stop: 07/01/17 10:01 Last Admin: 06/26/17 13:48 Dose: 133.333 mls/hr Insulin Human Regular (Novolin R) 0 unit SC ACHS [facility] PRN Reason: Protocol Last Admin: 06/26/17 12:14 Dose: Not Given Levothyroxine Sodium (Synthroid) 25 mcg PO 0630 [facility] Last Admin: 06/26/17 05:33 Dose: 25 mcg Minoxidil (Minoxidil) 2.5 mg PO DAILY [facility] Last Admin: 06/21/17 18:01 Dose: Not Given Rosuvastatin Calcium (Crestor) 5 mg PO HS [facility] Last Admin: 06/25/17 21:46 Dose: 5 mg - Labs Labs: 06/25/17 10:48 06/25/17 10:48 PT 11.4 SECONDS (9.7-12.2) 06/21/17 07:07 INR 1.0 06/21/17 07:07 APTT 46 SECONDS (21-34) H 06/21/17 07:07 - Head Exam Head Exam: ATRAUMATIC, NORMOCEPHALIC - ENT Exam ENT Exam: Mucous Membranes Moist - Neck Exam Neck Exam: Normal Inspection - Respiratory Exam Respiratory Exam: Decreased Breath Sounds - Cardiovascular Exam Cardiovascular Exam: REGULAR RHYTHM - GI/Abdominal Exam GI & Abdominal Exam: Soft, Normal Bowel Sounds - Extremities Exam Extremities Exam: Normal Inspection - Neurological Exam Neurological Exam: Alert, Oriented x3 Assessment and Plan (1) Pneumonia Assessment & Plan: Continue antibiotics as per infectious diseas Continue nebulizer treatment Continue hemodialysis Follow-up ABG and chest x-ray Status: Acute (2) COPD (chronic obstructive pulmonary disease) Status: Acute (3) ESRD (end stage renal disease) on dialysis Status: Chronic
[2017-06-26 17:07] VITALS: BP 124/74; PULSE 86; RESP 20; TEMP 97.6; O2SAT 96
[2017-06-26 18:01] LABS: ACETONE 20 mg/dL; ETHANOL None Detected; METHANOL None Detected
--- NOTE | 2017-06-26 19:11 | CP.PCM.PN ---
Subjective - Date & Time of Evaluation Date of Evaluation: 06/26/17 Time of Evaluation: 07:20 - Subjective Subjective: clinically same Objective - Vital Signs/Intake and Output Vital Signs (last 24 hours): Temp Pulse Resp BP Pulse Ox 97.6 F 86 20 124/74 96 06/26/17 15:05 06/26/17 15:05 06/26/17 15:05 06/26/17 15:05 06/26/17 15:05 - Medications Medications: Current Medications Albumin Human (Albumin Human 25% (12.5 Gm/50 Ml)) 12.5 gm IV TuTa [facility] Albumin Human (Albumin Human 25% (12.5 Gm/50 Ml)) 12.5 gm IV TuThSa [facility] Last Admin: 06/26/17 10:14 Dose: 12.5 gm Albuterol/Ipratropium (Duoneb 3 Mg/0.5 Mg (3 Ml) Ud) 3 ml IH RQ6 [facility] Last Admin: 06/26/17 13:16 Dose: Not Given Allopurinol (Zyloprim) 100 mg PO DAILY [facility] Last Admin: 06/26/17 10:03 Dose: Not Given Amlodipine Besylate (Norvasc) 10 mg PO DAILY [facility] Last Admin: 06/26/17 10:03 Dose: Not Given Aspirin (Aspirin) 325 mg PO 0800 [facility] Last Admin: 06/26/17 07:55 Dose: 325 mg Bisacodyl (Dulcolax) 10 mg [place] DAILY PRN PRN Reason: Constipation Last Admin: 06/22/17 10:45 Dose: 10 mg Calcium Acetate (Phoslo) 667 mg PO [facility] Carvedilol (Coreg) 6.25 mg PO 0800 [facility] Last Admin: 06/26/17 07:55 Dose: Not Given Clopidogrel Bisulfate (Plavix) 75 mg PO 0800 [facility] Last Admin: 06/26/17 07:55 Dose: 75 mg Docusate Sodium (Colace) 100 mg PO BID [facility] Last Admin: 06/26/17 17:11 Dose: 100 mg Famotidine (Pepcid) 20 mg IVP DAILY [facility] Last Admin: 06/26/17 10:03 Dose: Not Given Folic Acid (Folic Acid) 1 mg PO DAILY [facility] Last Admin: 06/26/17 10:02 Dose: Not Given Heparin Sodium (Porcine) (Heparin) 5,000 units SC BID [facility] Last Admin: 06/26/17 17:11 Dose: 5,000 units Piperacillin Sod/Tazobactam Sod (Zosyn 2.25 Gm Iv Premix) 2.25 gm in 50 mls @ 100 mls/hr IVPB Q6H [facility] Last Admin: 06/26/17 15:55 Dose: 100 mls/hr Vancomycin/Sodium Chloride (Vancomycin 1 Gm/Ns 200 Ml) 1 gm in 200 mls @ 133.333 mls/hr IVPB TTS [facility] Stop: 07/01/17 10:01 Last Admin: 06/26/17 13:48 Dose: 133.333 mls/hr Insulin Human Regular (Novolin R) 0 unit SC ACHS [facility] PRN Reason: Protocol Last Admin: 06/26/17 18:24 Dose: 4 unit Levothyroxine Sodium (Synthroid) 25 mcg PO 0630 [facility] Last Admin: 06/26/17 05:33 Dose: 25 mcg Minoxidil (Minoxidil) 2.5 mg PO DAILY [facility] Last Admin: 06/21/17 18:01 Dose: Not Given Rosuvastatin Calcium (Crestor) 5 mg PO HS [facility] Last Admin: 06/25/17 21:46 Dose: 5 mg - Labs Labs: 06/25/17 10:48 06/25/17 10:48 PT 11.4 SECONDS (9.7-12.2) 06/21/17 07:07 INR 1.0 06/21/17 07:07 APTT 46 SECONDS (21-34) H 06/21/17 07:07 - Constitutional Appears: Well - Head Exam Head Exam: ATRAUMATIC, NORMAL INSPECTION, NORMOCEPHALIC - Eye Exam Eye Exam: EOMI, Normal appearance, PERRL Pupil Exam: NORMAL ACCOMODATION, PERRL - ENT Exam ENT Exam: Mucous Membranes Moist, Normal Exam - Neck Exam Neck Exam: Full ROM, Normal Inspection. absent: Lymphadenopathy - Respiratory Exam Respiratory Exam: Decreased Breath Sounds - Cardiovascular Exam Cardiovascular Exam: REGULAR RHYTHM, +S1, +S2 - GI/Abdominal Exam GI & Abdominal Exam: Soft, Diminished Bowel Sounds - Rectal Exam Rectal Exam: Deferred
--- NOTE | 2017-06-26 21:08 | CP.PCM.PN ---
Subjective - Date & Time of Evaluation Date of Evaluation: 06/26/17 Time of Evaluation: 07:20 - Subjective Subjective: Patient seen and evaluated Denies chest pain and dyspnea CRF on HD HTN COPD Possible d/c today Objective - Vital Signs/Intake and Output Vital Signs (last 24 hours): Temp Pulse Resp BP Pulse Ox 97.6 F 86 20 124/74 96 06/26/17 15:05 06/26/17 15:05 06/26/17 15:05 06/26/17 15:05 06/26/17 15:05 Intake and Output: 06/26/17 06/27/17 18:59 06:59 Intake Total 250 Balance 250 - Labs Labs: 06/25/17 10:48 06/25/17 10:48 PT 11.4 SECONDS (9.7-12.2) 06/21/17 07:07 INR 1.0 06/21/17 07:07 APTT 46 SECONDS (21-34) H 06/21/17 07:07
== END 2017-06-26 20:06 | DRG 871 ==
LOC: C.ER 09:31 → C.9E 12:14 → C.6T 13:33 → OBSVTOIN 13:48 → C.6T 20:33 → C.9I 06-21 06:18 → C.3T 06-25 22:49
PROVIDERS: ADMIT Internal Medicine Nephrology; ATTEND Internal Medicine Nephrology
PROC: 5A1D70Z Performance of Urinary Filtration, Intermittent, Less than 6 Hours Per Day (ICD-10-PCS; principal; 2017-06-21)
PROC: 5A1945Z Respiratory Ventilation, 24-96 Consecutive Hours (ICD-10-PCS; 2017-06-21)
PROC: 0BH17EZ Insertion of Endotracheal Airway into Trachea, Via Natural or Artificial Opening (ICD-10-PCS; 2017-06-21)
DX: A41.9 Sepsis, unspecified organism (principal); J96.01 Acute respiratory failure with hypoxia; I50.23 Acute on chronic systolic (congestive) heart failure; J18.9 Pneumonia, unspecified organism; E11.22 Type 2 diabetes mellitus with diabetic chronic kidney disease; N18.6 End stage renal disease; J44.0 Chronic obstructive pulmonary disease with (acute) lower respiratory infection; E03.9 Hypothyroidism, unspecified; E78.00 Pure hypercholesterolemia, unspecified; I12.9 Hypertensive chronic kidney disease with stage 1 through stage 4 chronic kidney disease, or unspecified chronic kidney disease; I25.10 Atherosclerotic heart disease of native coronary artery without angina pectoris; D64.9 Anemia, unspecified; Z86.73 Personal history of transient ischemic attack (TIA), and cerebral infarction without residual deficits; Z87.01 Personal history of pneumonia (recurrent); Z87.891 Personal history of nicotine dependence; Z95.5 Presence of coronary angioplasty implant and graft; Z99.2 Dependence on renal dialysis

== ENCOUNTER 2017-08-10 16:00 | Inpatient (IN) | payer MEDICARE, MEDICAID ==
[2017-08-10] MEDS ORDERED: Propofol 10 mg/ml 1,000 MG/100 ML VIAL IV PRN (20:10)
[2017-08-10] MEDS ORDERED: Albuterol 0.083% Inhal Sol (2.5 mg/3 mL) UD IH SCH (20:15)
[2017-08-10 21:25] LABS: NEUT # 2.8 K/uL (1.8-7.0)
[2017-08-10 21:33] LABS: INR 1.2; PROTHROMBIN TIME 13.1 SECONDS (9.7-12.2)
[2017-08-10 21:35] LABS: BASO % 0.8 % (0.0-2.0); EOS # 0.4 K/uL (0.0-0.7); EOS % 9.6 % (0.0-4.0); LYMPH # 0.6 K/uL (1.0-4.3); LYMPH % 12.5 % (20.0-40.0); MEAN CELL VOLUME 91.1 fL (80.0-94.0); MEAN CORPUSCULAR HEMOGLOBIN 31.2 pg (27.0-31.0); MEAN CORPUSCULAR HGB CONC 34.2 g/dL (33.0-37.0); MONO # 0.7 K/uL (0.0-0.8); MONO % 15.9 % (0.0-10.0); NEUT % 61.2 % (50.0-75.0); NRBC % 0.2 % (0.0-2.0); RBC 2.83 Mil/uL (4.40-5.90); RED CELL DISTRIBUTION WIDTH 19.3 % (11.5-14.5); WHITE BLOOD COUNT 4.5 K/uL (4.8-10.8)
[2017-08-10 21:44] LABS: HEMOGLOBIN 8.8 g/dL (12.0-18.0)
[2017-08-10 21:50] LABS: ALB/GLOB RATIO 0.5 (1.0-2.1); ALBUMIN 2.4 g/dL (3.5-5.0); ALT/SGPT 17 U/L (21-72); AST/SGOT 32 U/L (17-59); BLOOD UREA NITROGEN 28 mg/dL (9-20); CALCIUM 9.1 mg/dl (8.6-10.4); GFR AFRICAN-AMERICAN 33; GFR NON-AFRICAN AMERICAN 28; HDL CHOLESTEROL 9 mg/dL (30-70); MAGNESIUM 1.8 mg/dL (1.6-2.3)
[2017-08-10 21:52] LABS: ARTERIAL BLOOD GAS HCO3 26.6 mmol/L (21-28); ARTERIAL BLOOD GAS O2 SAT 98.6 % (95-98); ARTERIAL BLOOD GAS PCO2 49 mm/Hg (35-45); ARTERIAL BLOOD GAS PH 7.37 (7.35-7.45); ARTERIAL BLOOD GAS PO2 98 mm/Hg (80-100); ARTERIAL BLOOD GAS TCO2 29.8 mmol/L (22-28)
[2017-08-10 21:55] LABS: B-TYPE NATRIURETIC PEPTIDE 25300 pg/mL (0-900); CK-MB 1.32 ng/mL (0.0-3.38)
[2017-08-10 21:56] LABS: LDL CHOLESTEROL < 30 mg/dL (0-129)
[2017-08-10] MEDS: Sucralfate 1 gm/10 ml Oral Susp UD NG SCH (22:00)
[2017-08-10] MEDS: (Novolog) Insulin Aspart, Recombinant 100 u/ml 10 ml vial SC SCH (22:40)
--- NOTE | 2017-08-10 22:52 | CP.PCM.CON ---
History of Present Illness - History of Present Illness History of Present Illness: 62 years old male with a history of ESRD on HD, CAD s/p 2 stents, hypothyroidism , CHF, htn, copd, IDDM, chronic dysphagia with vocal cord paralysis, pulmonary nodule, h/o cdiff who was admitted to [facility] for trach and peg placement. Patient is intubated and cannot provide any history. ALLERGY: Tetanus and diptheria toxoids HOSPITALIZATION: multiple at [facility] Review of Systems - Review of Systems Review of Systems: unable to provide ROS 2nd intubation Past Patient History - Infectious Disease Hx of Infectious Diseases: None - Tetanus Immunizations Tetanus Immunization: Unknown - Past Medical History & Family History Past Medical History?: Yes - Past Social History Smoking Status: Never Smoked - CARDIAC Hx Congestive Heart Failure: Yes Hx Hypercholesterolemia: Yes Hx Hypertension: Yes Hx Pacemaker: No - PULMONARY Hx Bronchitis: No Hx Chronic Obstructive Pulmonary Disease (COPD): Yes Hx Pneumonia: Yes - NEUROLOGICAL Hx Transient Ischemic Attacks (TIA): Yes - HEENT Hx HEENT Problems: Yes (WEARS RX GLASSES) Hx Cataracts: Yes (RIGHT EYE) Other/Comment: left strabismus - RENAL Date of Last Dialysis Treatment: 08/09/17 - ENDOCRINE/METABOLIC Hx Hypothyroidism: Yes - HEMATOLOGICAL/ONCOLOGICAL Hx Anemia: Yes (BLOOD TRANSFUSION-ACCIDENTAL DISLODGEMENT OF NEEDLE TO SHUNT LOST 2 L OF BL) - INTEGUMENTARY Hx Dermatological Problems: Yes Other/Comment: dry itchy skin - MUSCULOSKELETAL/RHEUMATOLOGICAL Hx Falls: Yes (in the past) - GASTROINTESTINAL Hx Gastrointestinal Disorders: Yes (ASCITES 3-26-15,GASTROENTERITIS) Hx Ulcer: Yes Other/Comment: CONSTIPATION, hx c dif 09/16/15 - GENITOURINARY/GYNECOLOGICAL Hx Genitourinary Disorders: Yes Other/Comment: oliguria - PSYCHIATRIC Hx Substance Use: No - SURGICAL HISTORY Hx Coronary Stent: Yes - ANESTHESIA Hx Anesthesia: Yes Hx Anesthesia Reactions: No Hx Malignant Hyperthermia: No Meds Allergies/Adverse Reactions: Allergies Allergy/AdvReac Type Severity Reaction Status Date / Time tetanus and diphtheria Allergy RASH Verified 12/21/15 11:29 toxoids [tetanus & diphtheria toxoids] - Medications Medications: Current Medications Albuterol/Ipratropium (Duoneb 3 Mg/0.5 Mg (3 Ml) Ud) 3 ml INH RQ6 [facility] Aspirin (Aspirin Chewable) 81 mg PO DAILY [facility] Clonidine HCl (Catapres) 0.1 mg PO TID [facility] Clopidogrel Bisulfate (Plavix) 75 mg PO DAILY [facility] Docusate Sodium (Colace) 100 mg PO BID PRN PRN Reason: Constipation Famotidine (Pepcid) 20 mg IVP DAILY [facility] Heparin Sodium (Porcine) (Heparin) 5,000 units SC Q12 [facility] Propofol (Diprivan) 1,000 mg in 100 mls @ 2.22 mls/hr IV .Q24H PRN; Protocol; 5 MCG/KG/MIN PRN Reason: TITRATE PER MD ORDER Insulin Aspart (Novolog) 0 unit SC Q4H [facility] PRN Reason: Protocol Last Admin: 08/10/17 22:40 Dose: Not Given Sucralfate (Carafate Oral Susp) 1 gm NG Q6H [facility] Physical Exam - Constitutional Additional comments: intubated - Head Exam Head Exam: ATRAUMATIC - ENT Exam ENT Exam: Mucous Membranes Moist - Respiratory Exam Respiratory Exam: Rales, NORMAL BREATHING PATTERN - Cardiovascular Exam Cardiovascular Exam: REGULAR RHYTHM, +S1, +S2, +S4, Systolic Murmur - GI/Abdominal Exam GI & Abdominal Exam: Normal Bowel Sounds - Extremities Exam Extremities exam: Positive for: normal capillary refill. Negative for: calf tenderness - Neurological Exam Additional comments: sedated Results - Vital Signs Recent Vital Signs: Last Vital Signs Temp Pulse Resp BP Pulse Ox 100 08/10/17 19:37 - Labs Result Diagrams: 08/10/17 21:21 08/10/17 21:21 Labs: Laboratory Results - last 24 hr 08/10/17 08/10/17 08/10/17 21:21 21:21 21:21 WBC 4.5 L RBC 2.83 L Hgb 8.8 L D Hct 25.8 L MCV 91.1 MCH 31.2 H MCHC 34.2 RDW 19.3 H Plt Count 179 MPV 9.0 Neut % (Auto) 61.2 Lymph % (Auto) 12.5 L [place] % (Auto) 15.9 H Eos % (Auto) 9.6 H Baso % (Auto) 0.8 Neut # (Auto) 2.8 Lymph # (Auto) 0.6 L [place] # (Auto) 0.7 Eos # (Auto) 0.4 Baso # (Auto) 0.0 Differential Comment PT 13.1 H INR 1.2 APTT 46 H Puncture Site pCO2 pO2 HCO3 ABG pH ABG Total CO2 ABG O2 Saturation ABG Base Excess Juan Test ABG Potassium A-a O2 Difference Respiratory Index Glucose Lactate Vent Mode Mechanical Rate FiO2 Tidal Volume PEEP Sodium 133 Potassium 3.7 Chloride 97 L Carbon Dioxide 28 Anion Gap 12 BUN 28 H Creatinine 2.4 H Est GFR ( Amer) 33 Est GFR (Non-Af Amer) 28 POC Glucose (mg/dL) Random Glucose 65 L Lactic Acid Calcium 9.1 Phosphorus 3.3 Magnesium 1.8 Total Bilirubin 0.6 AST 32 ALT 17 L D Alkaline Phosphatase 174 H D CK-MB (Mass) 1.32 Troponin I 0.0210 NT-Pro-B Natriuret Pep 40988 H Total Protein 6.9 Albumin 2.4 L D Globulin 4.4 H Albumin/Globulin Ratio 0.5 L Triglycerides 90 Cholesterol 54 LDL Cholesterol Direct < 30 HDL Cholesterol 9 L Free T4 Free T3 pg/mL 2.20 L TSH 3rd Generation 4.55 Arterial Blood Potassium Blood Type Antibody Screen 08/10/17 08/10/17 08/10/17 21:21 21:21 21:31 WBC RBC Hgb Hct MCV MCH MCHC RDW Plt Count MPV Neut % (Auto) Lymph % (Auto) [place] % (Auto) Eos % (Auto) Baso % (Auto) Neut # (Auto) Lymph # (Auto) [place] # (Auto) Eos # (Auto) Baso # (Auto) Differential Comment PT INR APTT Puncture Site pCO2 pO2 HCO3 ABG pH ABG Total CO2 ABG O2 Saturation ABG Base Excess Juan Test ABG Potassium A-a O2 Difference Respiratory Index Glucose Lactate Vent Mode Mechanical Rate FiO2 Tidal Volume PEEP Sodium Potassium Chloride Carbon Dioxide Anion Gap BUN Creatinine Est GFR ( Amer) Est GFR (Non-Af Amer) POC Glucose (mg/dL) Random Glucose Lactic Acid 0.6 L Calcium Phosphorus Magnesium Total Bilirubin AST ALT Alkaline Phosphatase CK-MB (Mass) Troponin I NT-Pro-B Natriuret Pep Total Protein Albumin Globulin Albumin/Globulin Ratio Triglycerides Cholesterol LDL Cholesterol Direct HDL Cholesterol Free T4 1.59 Free T3 pg/mL TSH 3rd Generation Arterial Blood Potassium Blood Type B POSITIVE Antibody Screen Negative 08/10/17 08/10/17 21:34 21:49 WBC RBC Hgb Hct MCV MCH MCHC RDW Plt Count MPV Neut % (Auto) Lymph % (Auto) [place] % (Auto) Eos % (Auto) Baso % (Auto) Neut # (Auto) Lymph # (Auto) [place] # (Auto) Eos # (Auto) Baso # (Auto) Differential Comment PT INR APTT Puncture Site Rb pCO2 49 H pO2 98 HCO3 26.6 ABG pH 7.37 ABG Total CO2 29.8 H ABG O2 Saturation 98.6 H ABG Base Excess 2.2 Juan Test Na ABG Potassium 3.5 L A-a O2 Difference 269.0 Respiratory Index 2.7 Glucose 59 L Lactate 0.5 L Vent Mode Prvc Mechanical Rate 22 FiO2 60.0 Tidal Volume 450 PEEP 5 Sodium 137.0 Potassium Chloride 105.0 Carbon Dioxide Anion Gap BUN Creatinine Est GFR ( Amer) Est GFR (Non-Af Amer) POC Glucose (mg/dL) 70 Random Glucose Lactic Acid Calcium Phosphorus Magnesium Total Bilirubin AST ALT Alkaline Phosphatase CK-MB (Mass) Troponin I NT-Pro-B Natriuret Pep Total Protein Albumin Globulin Albumin/Globulin Ratio Triglycerides Cholesterol LDL Cholesterol Direct HDL Cholesterol Free T4 Free T3 pg/mL TSH 3rd Generation Arterial Blood Potassium 3.5 L Blood Type Antibody Screen Assessment & Plan - Assessment and Plan (Free Text) Plan: 62-year-old male with a history of diabetes hypertension COPD, end-stage renal disease on dialysis, coronary disease s/p stenting, PVD, admitted to [facility] for trach/peg -COPD: continue bronchodialators, keep Spo2 b/w 90-92, daily cpap trials -Chronic diastolic heart failure: continue anti-hypertensive, not a candidate for acei -CAD/PVD: will benefit from anti-platelets and AV minna oseas -ESRD on HD: HD as per renal -sepsis:resolving, blood culture NGSF, monitor -f/u verdin cultures -continue DVT/PUD ppx Patient remains hemodynamically stable. continue tube feeds cc time 35 minutes - Date & Time Date: 08/10/17 Time: 23:02
[2017-08-11] MEDS ORDERED: Dextrose 50% VIAL Inj (50 ml) IV STA (01:34)
[2017-08-11] MEDS: Albuterol-Ipratrop 3 mg / 0.5 (3 ml) UD INH SCH ×4 (01:36→19:05)
[2017-08-11] MEDS ORDERED: Dextrose 50% VIAL Inj (50 ml) IV ONE ×4 (01:41→17:02)
[2017-08-11] MEDS: (Novolog) Insulin Aspart, Recombinant 100 u/ml 10 ml vial SC SCH ×6 (02:31→21:09)
[2017-08-11] MEDS: Sucralfate 1 gm/10 ml Oral Susp UD NG SCH ×4 (02:35→21:11)
[2017-08-11 06:40] LABS: ARTERIAL BLOOD GAS HCO3 26.9 mmol/L (21-28); ARTERIAL BLOOD GAS PCO2 33 mm/Hg (35-45); ARTERIAL BLOOD GAS PO2 151 mm/Hg (80-100); ARTERIAL BLOOD GAS TCO2 26.7 mmol/L (22-28)
[2017-08-11 06:53] LABS: BASO # 0.1 K/uL (0.0-0.2); BASO % 1.5 % (0.0-2.0); EOS # 0.4 K/uL (0.0-0.7); EOS % 10.3 % (0.0-4.0); HEMOGLOBIN 8.7 g/dL (12.0-18.0); LYMPH # 0.6 K/uL (1.0-4.3); LYMPH % 15.3 % (20.0-40.0); MEAN CELL VOLUME 90.9 fL (80.0-94.0); MEAN CORPUSCULAR HEMOGLOBIN 31.8 pg (27.0-31.0); MEAN PLATELET VOLUME 9.1 fL (7.2-11.7); MONO # 0.6 K/uL (0.0-0.8); MONO % 15.5 % (0.0-10.0); NEUT # 2.1 K/uL (1.8-7.0); NEUT % 57.4 % (50.0-75.0); NRBC % 0.1 % (0.0-2.0); RBC 2.74 Mil/uL (4.40-5.90); RED CELL DISTRIBUTION WIDTH 19.3 % (11.5-14.5); WHITE BLOOD COUNT 3.7 K/uL (4.8-10.8)
[2017-08-11 07:01] LABS: ALB/GLOB RATIO 0.5 (1.0-2.1); ALBUMIN 2.4 g/dL (3.5-5.0); CALCIUM 9.2 mg/dl (8.6-10.4)
[2017-08-11] MEDS: Sevelamer Carb 0.8 gm/Packet NG SCH ×2 (08:00→12:00)
--- NOTE | 2017-08-11 10:55 | RAD ---
HISTORY: Pneumonia COMPARISON: No comparison chest 06/22/2017 FINDINGS: In situ ETT, tip of which lies approximately 3 cm above sidney. NGT is also present, tip of which overlies left parasagittal upper abdomen. . Interval placement right-sided PICC line with tip in the SVC. LUNGS: Diffuse bilateral infiltrates with more confluent opacities in the right mid to lower lung field and medial left lung base. Underlying pulmonary vascular congestion should be excluded as well. . Bilateral effusions right larger than left PLEURA: No significant pleural effusion identified, no pneumothorax apparent. CARDIOVASCULAR: Heart size stable. OSSEOUS STRUCTURES: Multilevel degenerative spondylosis of the thoracic spine. . VISUALIZED UPPER ABDOMEN: Normal. OTHER FINDINGS: None. IMPRESSION: Diffuse bilateral infiltrates with more confluent opacities in the right mid to lower lung field and medial left lung base. Underlying pulmonary vascular congestion should be excluded as well. . Bilateral effusions right larger than left
--- NOTE | 2017-08-11 11:12 | CP.CCUPN ---
CCU Subjective - Physician Review Events Since Last Encounter (Free Text): 08/11/17 11:12 Patient hospitalized for tracheostomy and PEG tube feeding. Patient is currently in the intensive care unit because of the ventilator. As the ventilator not able to manage in the floor. Patient came from [facility]. Otherwise condition stable. Continue the current treatment as per the PMD, dialysis needed as. ICU management, orders are reviewed and agreed CCU Objective - Vital Signs / Intake & Output Intake and Output (Last 8hrs): Intake & Output 08/10/17 08/11/17 08/11/17 22:59 06:59 14:59 Intake Total 0 0 0 Output Total 0 0 0 Balance 0 0 0 Weight 163 lb 2.273 oz 163 lb Intake: Intake, IV Amount 0 0 0 Right PICC 0 0 0 Other 0 Output: Urine 0 0 0 Urine, Voided 0 0 0 Other: Voiding Method Urinal - Medications Active Medications: Active Medications Generic Name Dose Route Start Last Admin Trade Name Freq PRN Reason Stop Dose Admin Albuterol/Ipratropium 3 ml 08/11/17 02:00 08/11/17 07:54 Duoneb 3 Mg/0.5 Mg (3 Ml) Ud INH 3 ml RQ6 BAYLEE Administration Aspirin 81 mg 08/11/17 10:00 08/11/17 10:47 Aspirin Chewable PO 81 mg DAILY BAYLEE Administration Carvedilol 6.25 mg 08/11/17 10:00 08/11/17 10:45 Coreg PO 6.25 mg BID BAYLEE Administration Clopidogrel Bisulfate 75 mg 08/11/17 10:00 08/11/17 10:45 Plavix PO 75 mg DAILY BAYLEE Administration Docusate Sodium 100 mg 08/10/17 20:10 Colace PO BID PRN Constipation Famotidine 20 mg 08/11/17 10:00 08/11/17 10:45 Pepcid IVP 20 mg DAILY BAYLEE Administration Heparin Sodium (Porcine) 5,000 units 08/10/17 22:00 08/11/17 10:45 Heparin SC 5,000 units Q12 BAYLEE Administration Propofol 1,000 mg in 100 mls @ 2.22 mls/hr 08/10/17 20:10 Diprivan IV .Q24H PRN TITRATE PER MD ORDER Protocol 5 MCG/KG/MIN Insulin Aspart 0 unit 08/10/17 21:00 08/11/17 10:30 Novolog SC Not Given Q4H [facility] Protocol Rosuvastatin Calcium 2.5 mg 08/11/17 22:00 Crestor PO HS BAYLEE Sevelamer Carbonate 0.8 gm 08/11/17 08:00 08/11/17 08:00 Renvela NG Not Given TIDCC BAYLEE Sucralfate 1 gm 08/10/17 20:15 08/11/17 10:45 Carafate Oral Susp NG 1 gm Q6H BAYLEE Administration - Patient Studies Lab Studies: Microbiology Studies 08/10/17 Unknown Gram Stain - Final Trachasp Lab Studies 08/11/17 08/11/17 08/11/17 Range/Units 10:48 10:47 06:40 WBC 3.7 L (4.8-10.8) K/uL RBC 2.74 L (4.40-5.90) Mil/uL Hgb 8.7 L (12.0-18.0) g/dL Hct 24.9 L (35.0-51.0) % MCV 90.9 (80.0-94.0) fL MCH 31.8 H (27.0-31.0) pg MCHC 35.0 (33.0-37.0) g/dL RDW 19.3 H (11.5-14.5) % Plt Count 178 (130-400) K/uL MPV 9.1 (7.2-11.7) fL Neut % (Auto) 57.4 (50.0-75.0) % Lymph % (Auto) 15.3 L (20.0-40.0) % Quay % (Auto) 15.5 H (0.0-10.0) % Eos % (Auto) 10.3 H (0.0-4.0) % Baso % (Auto) 1.5 (0.0-2.0) % Neut # (Auto) 2.1 (1.8-7.0) K/uL Lymph # (Auto) 0.6 L (1.0-4.3) K/uL Quay # (Auto) 0.6 (0.0-0.8) K/uL Eos # (Auto) 0.4 (0.0-0.7) K/uL Baso # (Auto) 0.1 (0.0-0.2) K/uL Differential Comment PT (9.7-12.2) SECONDS INR APTT (21-34) SECONDS Puncture Site pCO2 (35-45) mm/Hg pO2 (80-100) mm/Hg HCO3 (21-28) mmol/L ABG pH (7.35-7.45) ABG Total CO2 (22-28) mmol/L ABG O2 Saturation (95-98) % ABG Base Excess (-2.0-3.0) mmol/L ABG Hemoglobin (11.7-17.4) g/dL ABG Carboxyhemoglobin (0.5-1.5) % POC ABG HHb (Measured) (0.0-5.0) % ABG Methemoglobin (0.0-3.0) % Juan Test ABG Potassium (3.6-5.2) mmol/L A-a O2 Difference mm/Hg Respiratory Index Hgb O2 Saturation (95.0-98.0) % Glucose (75-110) mg/dl Lactate (0.7-2.1) mmol/L Vent Mode Mechanical Rate FiO2 % Tidal Volume PEEP Sodium (132-148) mmol/L Potassium (3.6-5.2) mmol/L Chloride (98-107) mmol/L Carbon Dioxide (22-30) mmol/L Anion Gap (10-20) BUN (9-20) mg/dL Creatinine (0.8-1.5) mg/dL Est GFR ( Amer) Est GFR (Non-Af Amer) POC Glucose (mg/dL) 55 L 55 L (65-110) mg/dL Random Glucose (75-110) mg/dL Lactic Acid (0.7-2.1) mmol/L Calcium (8.6-10.4) mg/dl Phosphorus (2.5-4.5) mg/dL Magnesium (1.6-2.3) mg/dL Total Bilirubin (0.2-1.3) mg/dL AST (17-59) U/L ALT (21-72) U/L Alkaline Phosphatase (38-126) U/L CK-MB (Mass) (0.0-3.38) ng/mL Troponin I (0.00-0.120) ng/mL NT-Pro-B Natriuret Pep (0-900) pg/mL Total Protein (6.3-8.3) g/dL Albumin (3.5-5.0) g/dL Globulin (2.2-3.9) gm/dL Albumin/Globulin Ratio (1.0-2.1) Triglycerides (0-149) mg/dL Cholesterol (0-199) mg/dL LDL Cholesterol Direct (0-129) mg/dL HDL Cholesterol (30-70) mg/dL Free T4 (0.78-2.19) ng/dL Free T3 pg/mL (2.77-5.27) pg/mL TSH 3rd Generation (0.46-4.68) mIU/L Arterial Blood Potassium (3.6-5.2) mmol/L Blood Type Antibody Screen 08/11/17 08/11/17 08/11/17 Range/Units 06:38 05:26 05:02 WBC (4.8-10.8) K/uL RBC (4.40-5.90) Mil/uL Hgb (12.0-18.0) g/dL Hct (35.0-51.0) % MCV (80.0-94.0) fL MCH (27.0-31.0) pg MCHC (33.0-37.0) g/dL RDW (11.5-14.5) % Plt Count (130-400) K/uL MPV (7.2-11.7) fL Neut % (Auto) (50.0-75.0) % Lymph % (Auto) (20.0-40.0) % Quay % (Auto) (0.0-10.0) % Eos % (Auto) (0.0-4.0) % Baso % (Auto) (0.0-2.0) % Neut # (Auto) (1.8-7.0) K/uL Lymph # (Auto) (1.0-4.3) K/uL Quay # (Auto) (0.0-0.8) K/uL Eos # (Auto) (0.0-0.7) K/uL Baso # (Auto) (0.0-0.2) K/uL Differential Comment PT (9.7-12.2) SECONDS INR APTT (21-34) SECONDS Puncture Site L bra pCO2 33 L (35-45) mm/Hg pO2 151 H (80-100) mm/Hg HCO3 26.9 (21-28) mmol/L ABG pH 7.50 H (7.35-7.45) ABG Total CO2 26.7 (22-28) mmol/L ABG O2 Saturation 99.0 H (95-98) % ABG Base Excess 2.5 (-2.0-3.0) mmol/L ABG Hemoglobin 8.0 L (11.7-17.4) g/dL ABG Carboxyhemoglobin 1.4 (0.5-1.5) % POC ABG HHb (Measured) 1.0 (0.0-5.0) % ABG Methemoglobin 0.9 (0.0-3.0) % Juan Test Na ABG Potassium (3.6-5.2) mmol/L A-a O2 Difference 236.0 mm/Hg Respiratory Index 1.6 Hgb O2 Saturation 96.7 (95.0-98.0) % Glucose (75-110) mg/dl Lactate (0.7-2.1) mmol/L Vent Mode Prvc Mechanical Rate 22 FiO2 60.0 % Tidal Volume 450 PEEP 5 Sodium 133 (132-148) mmol/L Potassium 3.6 (3.6-5.2) mmol/L Chloride 98 (98-107) mmol/L Carbon Dioxide 29 (22-30) mmol/L Anion Gap 11 (10-20) BUN 30 H (9-20) mg/dL Creatinine 2.8 H (0.8-1.5) mg/dL Est GFR ( Amer) 28 Est GFR (Non-Af Amer) 23 POC Glucose (mg/dL) 71 (65-110) mg/dL Random Glucose 67 L (75-110) mg/dL Lactic Acid (0.7-2.1) mmol/L Calcium 9.2 (8.6-10.4) mg/dl Phosphorus 3.3 (2.5-4.5) mg/dL Magnesium 2.0 (1.6-2.3) mg/dL Total Bilirubin 0.7 (0.2-1.3) mg/dL AST 30 (17-59) U/L ALT 18 L (21-72) U/L Alkaline Phosphatase 164 H (38-126) U/L CK-MB (Mass) (0.0-3.38) ng/mL Troponin I (0.00-0.120) ng/mL NT-Pro-B Natriuret Pep (0-900) pg/mL Total Protein 6.9 (6.3-8.3) g/dL Albumin 2.4 L (3.5-5.0) g/dL Globulin 4.5 H (2.2-3.9) gm/dL Albumin/Globulin Ratio 0.5 L (1.0-2.1) Triglycerides (0-149) mg/dL Cholesterol (0-199) mg/dL LDL Cholesterol Direct (0-129) mg/dL HDL Cholesterol (30-70) mg/dL Free T4 (0.78-2.19) ng/dL Free T3 pg/mL (2.77-5.27) pg/mL TSH 3rd Generation (0.46-4.68) mIU/L Arterial Blood Potassium (3.6-5.2) mmol/L Blood Type Antibody Screen 08/11/17 08/11/17 08/10/17 Range/Units 01:01 00:58 21:49 WBC (4.8-10.8) K/uL RBC (4.40-5.90) Mil/uL Hgb (12.0-18.0) g/dL Hct (35.0-51.0) % MCV (80.0-94.0) fL MCH (27.0-31.0) pg MCHC (33.0-37.0) g/dL RDW (11.5-14.5) % Plt Count (130-400) K/uL MPV (7.2-11.7) fL Neut % (Auto) (50.0-75.0) % Lymph % (Auto) (20.0-40.0) % Quay % (Auto) (0.0-10.0) % Eos % (Auto) (0.0-4.0) % Baso % (Auto) (0.0-2.0) % Neut # (Auto) (1.8-7.0) K/uL Lymph # (Auto) (1.0-4.3) K/uL Quay # (Auto) (0.0-0.8) K/uL Eos # (Auto) (0.0-0.7) K/uL Baso # (Auto) (0.0-0.2) K/uL Differential Comment PT (9.7-12.2) SECONDS INR APTT (21-34) SECONDS Puncture Site Rb pCO2 49 H (35-45) mm/Hg pO2 98 (80-100) mm/Hg HCO3 26.6 (21-28) mmol/L ABG pH 7.37 (7.35-7.45) ABG Total CO2 29.8 H (22-28) mmol/L ABG O2 Saturation 98.6 H (95-98) % ABG Base Excess 2.2 (-2.0-3.0) mmol/L ABG Hemoglobin (11.7-17.4) g/dL ABG Carboxyhemoglobin (0.5-1.5) % POC ABG HHb (Measured) (0.0-5.0) % ABG Methemoglobin (0.0-3.0) % Juan Test Na ABG Potassium 3.5 L (3.6-5.2) mmol/L A-a O2 Difference 269.0 mm/Hg Respiratory Index 2.7 Hgb O2 Saturation (95.0-98.0) % Glucose 59 L (75-110) mg/dl Lactate 0.5 L (0.7-2.1) mmol/L Vent Mode Prvc Mechanical Rate 22 FiO2 60.0 % Tidal Volume 450 PEEP 5 Sodium 137.0 (132-148) mmol/L Potassium (3.6-5.2) mmol/L Chloride 105.0 (98-107) mmol/L Carbon Dioxide (22-30) mmol/L Anion Gap (10-20) BUN (9-20) mg/dL Creatinine (0.8-1.5) mg/dL Est GFR ( Amer) Est GFR (Non-Af Amer) POC Glucose (mg/dL) 58 L 55 L (65-110) mg/dL Random Glucose (75-110) mg/dL Lactic Acid (0.7-2.1) mmol/L Calcium (8.6-10.4) mg/dl Phosphorus (2.5-4.5) mg/dL Magnesium (1.6-2.3) mg/dL Total Bilirubin (0.2-1.3) mg/dL AST (17-59) U/L ALT (21-72) U/L Alkaline Phosphatase (38-126) U/L CK-MB (Mass) (0.0-3.38) ng/mL Troponin I (0.00-0.120) ng/mL NT-Pro-B Natriuret Pep (0-900) pg/mL Total Protein (6.3-8.3) g/dL Albumin (3.5-5.0) g/dL Globulin (2.2-3.9) gm/dL Albumin/Globulin Ratio (1.0-2.1) Triglycerides (0-149) mg/dL Cholesterol (0-199) mg/dL LDL Cholesterol Direct (0-129) mg/dL HDL Cholesterol (30-70) mg/dL Free T4 (0.78-2.19) ng/dL Free T3 pg/mL (2.77-5.27) pg/mL TSH 3rd Generation (0.46-4.68) mIU/L Arterial Blood Potassium 3.5 L (3.6-5.2) mmol/L Blood Type Antibody Screen 08/10/17 08/10/17 08/10/17 Range/Units 21:34 21:31 21:21 WBC (4.8-10.8) K/uL RBC (4.40-5.90) Mil/uL Hgb (12.0-18.0) g/dL Hct (35.0-51.0) % MCV (80.0-94.0) fL MCH (27.0-31.0) pg MCHC (33.0-37.0) g/dL RDW (11.5-14.5) % Plt Count (130-400) K/uL MPV (7.2-11.7) fL Neut % (Auto) (50.0-75.0) % Lymph % (Auto) (20.0-40.0) % Quay % (Auto) (0.0-10.0) % Eos % (Auto) (0.0-4.0) % Baso % (Auto) (0.0-2.0) % Neut # (Auto) (1.8-7.0) K/uL Lymph # (Auto) (1.0-4.3) K/uL Quay # (Auto) (0.0-0.8) K/uL Eos # (Auto) (0.0-0.7) K/uL Baso # (Auto) (0.0-0.2) K/uL Differential Comment PT (9.7-12.2) SECONDS INR APTT (21-34) SECONDS Puncture Site pCO2 (35-45) mm/Hg pO2 (80-100) mm/Hg HCO3 (21-28) mmol/L ABG pH (7.35-7.45) ABG Total CO2 (22-28) mmol/L ABG O2 Saturation (95-98) % ABG Base Excess (-2.0-3.0) mmol/L ABG Hemoglobin (11.7-17.4) g/dL ABG Carboxyhemoglobin (0.5-1.5) % POC ABG HHb (Measured) (0.0-5.0) % ABG Methemoglobin (0.0-3.0) % Juan Test ABG Potassium (3.6-5.2) mmol/L A-a O2 Difference mm/Hg Respiratory Index Hgb O2 Saturation (95.0-98.0) % Glucose (75-110) mg/dl Lactate (0.7-2.1) mmol/L Vent Mode Mechanical Rate FiO2 % Tidal Volume PEEP Sodium (132-148) mmol/L Potassium (3.6-5.2) mmol/L Chloride (98-107) mmol/L Carbon Dioxide (22-30) mmol/L Anion Gap (10-20) BUN (9-20) mg/dL Creatinine (0.8-1.5) mg/dL Est GFR ( Amer) Est GFR (Non-Af Amer) POC Glucose (mg/dL) 70 (65-110) mg/dL Random Glucose (75-110) mg/dL Lactic Acid (0.7-2.1) mmol/L Calcium (8.6-10.4) mg/dl Phosphorus (2.5-4.5) mg/dL Magnesium (1.6-2.3) mg/dL Total Bilirubin (0.2-1.3) mg/dL AST (17-59) U/L ALT (21-72) U/L Alkaline Phosphatase (38-126) U/L CK-MB (Mass) (0.0-3.38) ng/mL Troponin I (0.00-0.120) ng/mL NT-Pro-B Natriuret Pep (0-900) pg/mL Total Protein (6.3-8.3) g/dL Albumin (3.5-5.0) g/dL Globulin (2.2-3.9) gm/dL Albumin/Globulin Ratio (1.0-2.1) Triglycerides (0-149) mg/dL Cholesterol (0-199) mg/dL LDL Cholesterol Direct (0-129) mg/dL HDL Cholesterol (30-70) mg/dL Free T4 1.59 (0.78-2.19) ng/dL Free T3 pg/mL (2.77-5.27) pg/mL TSH 3rd Generation (0.46-4.68) mIU/L Arterial Blood Potassium (3.6-5.2) mmol/L Blood Type B POSITIVE Antibody Screen Negative 08/10/17 08/10/17 08/10/17 Range/Units 21:21 21:21 21:21 WBC (4.8-10.8) K/uL RBC (4.40-5.90) Mil/uL Hgb (12.0-18.0) g/dL Hct (35.0-51.0) % MCV (80.0-94.0) fL MCH (27.0-31.0) pg MCHC (33.0-37.0) g/dL RDW (11.5-14.5) % Plt Count (130-400) K/uL MPV (7.2-11.7) fL Neut % (Auto) (50.0-75.0) % Lymph % (Auto) (20.0-40.0) % Quay % (Auto) (0.0-10.0) % Eos % (Auto) (0.0-4.0) % Baso % (Auto) (0.0-2.0) % Neut # (Auto) (1.8-7.0) K/uL Lymph # (Auto) (1.0-4.3) K/uL Quay # (Auto) (0.0-0.8) K/uL Eos # (Auto) (0.0-0.7) K/uL Baso # (Auto) (0.0-0.2) K/uL Differential Comment PT 13.1 H (9.7-12.2) SECONDS INR 1.2 APTT 46 H (21-34) SECONDS Puncture Site pCO2 (35-45) mm/Hg pO2 (80-100) mm/Hg HCO3 (21-28) mmol/L ABG pH (7.35-7.45) ABG Total CO2 (22-28) mmol/L ABG O2 Saturation (95-98) % ABG Base Excess (-2.0-3.0) mmol/L ABG Hemoglobin (11.7-17.4) g/dL ABG Carboxyhemoglobin (0.5-1.5) % POC ABG HHb (Measured) (0.0-5.0) % ABG Methemoglobin (0.0-3.0) % Juan Test ABG Potassium (3.6-5.2) mmol/L A-a O2 Difference mm/Hg Respiratory Index Hgb O2 Saturation (95.0-98.0) % Glucose (75-110) mg/dl Lactate (0.7-2.1) mmol/L Vent Mode Mechanical Rate FiO2 % Tidal Volume PEEP Sodium 133 (132-148) mmol/L Potassium 3.7 (3.6-5.2) mmol/L Chloride 97 L (98-107) mmol/L Carbon Dioxide 28 (22-30) mmol/L Anion Gap 12 (10-20) BUN 28 H (9-20) mg/dL Creatinine 2.4 H (0.8-1.5) mg/dL Est GFR ( Amer) 33 Est GFR (Non-Af Amer) 28 POC Glucose (mg/dL) (65-110) mg/dL Random Glucose 65 L (75-110) mg/dL Lactic Acid 0.6 L (0.7-2.1) mmol/L Calcium 9.1 (8.6-10.4) mg/dl Phosphorus 3.3 (2.5-4.5) mg/dL Magnesium 1.8 (1.6-2.3) mg/dL Total Bilirubin 0.6 (0.2-1.3) mg/dL AST 32 (17-59) U/L ALT 17 L D (21-72) U/L Alkaline Phosphatase 174 H D (38-126) U/L CK-MB (Mass) 1.32 (0.0-3.38) ng/mL Troponin I 0.0210 (0.00-0.120) ng/mL NT-Pro-B Natriuret Pep 24268 H (0-900) pg/mL Total Protein 6.9 (6.3-8.3) g/dL Albumin 2.4 L D (3.5-5.0) g/dL Globulin 4.4 H (2.2-3.9) gm/dL Albumin/Globulin Ratio 0.5 L (1.0-2.1) Triglycerides 90 (0-149) mg/dL Cholesterol 54 (0-199) mg/dL LDL Cholesterol Direct < 30 (0-129) mg/dL HDL Cholesterol 9 L (30-70) mg/dL Free T4 (0.78-2.19) ng/dL Free T3 pg/mL 2.20 L (2.77-5.27) pg/mL TSH 3rd Generation 4.55 (0.46-4.68) mIU/L Arterial Blood Potassium (3.6-5.2) mmol/L Blood Type Antibody Screen 08/10/17 Range/Units 21:21 WBC 4.5 L (4.8-10.8) K/uL RBC 2.83 L (4.40-5.90) Mil/uL Hgb 8.8 L D (12.0-18.0) g/dL Hct 25.8 L (35.0-51.0) % MCV 91.1 (80.0-94.0) fL MCH 31.2 H (27.0-31.0) pg MCHC 34.2 (33.0-37.0) g/dL RDW 19.3 H (11.5-14.5) % Plt Count 179 (130-400) K/uL MPV 9.0 (7.2-11.7) fL Neut % (Auto) 61.2 (50.0-75.0) % Lymph % (Auto) 12.5 L (20.0-40.0) % Quay % (Auto) 15.9 H (0.0-10.0) % Eos % (Auto) 9.6 H (0.0-4.0) % Baso % (Auto) 0.8 (0.0-2.0) % Neut # (Auto) 2.8 (1.8-7.0) K/uL Lymph # (Auto) 0.6 L (1.0-4.3) K/uL Quay # (Auto) 0.7 (0.0-0.8) K/uL Eos # (Auto) 0.4 (0.0-0.7) K/uL Baso # (Auto) 0.0 (0.0-0.2) K/uL Differential Comment PT (9.7-12.2) SECONDS INR APTT (21-34) SECONDS Puncture Site pCO2 (35-45) mm/Hg pO2 (80-100) mm/Hg HCO3 (21-28) mmol/L ABG pH (7.35-7.45) ABG Total CO2 (22-28) mmol/L ABG O2 Saturation (95-98) % ABG Base Excess (-2.0-3.0) mmol/L ABG Hemoglobin (11.7-17.4) g/dL ABG Carboxyhemoglobin (0.5-1.5) % POC ABG HHb (Measured) (0.0-5.0) % ABG Methemoglobin (0.0-3.0) % Juan Test ABG Potassium (3.6-5.2) mmol/L A-a O2 Difference mm/Hg Respiratory Index Hgb O2 Saturation (95.0-98.0) % Glucose (75-110) mg/dl Lactate (0.7-2.1) mmol/L Vent Mode Mechanical Rate FiO2 % Tidal Volume PEEP Sodium (132-148) mmol/L Potassium (3.6-5.2) mmol/L Chloride (98-107) mmol/L Carbon Dioxide (22-30) mmol/L Anion Gap (10-20) BUN (9-20) mg/dL Creatinine (0.8-1.5) mg/dL Est GFR ( Amer) Est GFR (Non-Af Amer) POC Glucose (mg/dL) (65-110) mg/dL Random Glucose (75-110) mg/dL Lactic Acid (0.7-2.1) mmol/L Calcium (8.6-10.4) mg/dl Phosphorus (2.5-4.5) mg/dL Magnesium (1.6-2.3) mg/dL Total Bilirubin (0.2-1.3) mg/dL AST (17-59) U/L ALT (21-72) U/L Alkaline Phosphatase (38-126) U/L CK-MB (Mass) (0.0-3.38) ng/mL Troponin I (0.00-0.120) ng/mL NT-Pro-B Natriuret Pep (0-900) pg/mL Total Protein (6.3-8.3) g/dL Albumin (3.5-5.0) g/dL Globulin (2.2-3.9) gm/dL Albumin/Globulin Ratio (1.0-2.1) Triglycerides (0-149) mg/dL Cholesterol (0-199) mg/dL LDL Cholesterol Direct (0-129) mg/dL HDL Cholesterol (30-70) mg/dL Free T4 (0.78-2.19) ng/dL Free T3 pg/mL (2.77-5.27) pg/mL TSH 3rd Generation (0.46-4.68) mIU/L Arterial Blood Potassium (3.6-5.2) mmol/L Blood Type Antibody Screen Laboratory Results - last 24 hr 08/10/17 08/10/17 08/10/17 21:21 21:21 21:21 WBC 4.5 L RBC 2.83 L Hgb 8.8 L D Hct 25.8 L MCV 91.1 MCH 31.2 H MCHC 34.2 RDW 19.3 H Plt Count 179 MPV 9.0 Neut % (Auto) 61.2 Lymph % (Auto) 12.5 L Quay % (Auto) 15.9 H Eos % (Auto) 9.6 H Baso % (Auto) 0.8 Neut # (Auto) 2.8 Lymph # (Auto) 0.6 L Quay # (Auto) 0.7 Eos # (Auto) 0.4 Baso # (Auto) 0.0 Differential Comment PT 13.1 H INR 1.2 APTT 46 H Puncture Site pCO2 pO2 HCO3 ABG pH ABG Total CO2 ABG O2 Saturation ABG Base Excess ABG Hemoglobin ABG Carboxyhemoglobin POC ABG HHb (Measured) ABG Methemoglobin Juan Test ABG Potassium A-a O2 Difference Respiratory Index Hgb O2 Saturation Glucose Lactate Vent Mode Mechanical Rate FiO2 Tidal Volume PEEP Sodium 133 Potassium 3.7 Chloride 97 L Carbon Dioxide 28 Anion Gap 12 BUN 28 H Creatinine 2.4 H Est GFR ( Amer) 33 Est GFR (Non-Af Amer) 28 POC Glucose (mg/dL) Random Glucose 65 L Lactic Acid Calcium 9.1 Phosphorus 3.3 Magnesium 1.8 Total Bilirubin 0.6 AST 32 ALT 17 L D Alkaline Phosphatase 174 H D CK-MB (Mass) 1.32 Troponin I 0.0210 NT-Pro-B Natriuret Pep 19571 H Total Protein 6.9 Albumin 2.4 L D Globulin 4.4 H Albumin/Globulin Ratio 0.5 L Triglycerides 90 Cholesterol 54 LDL Cholesterol Direct < 30 HDL Cholesterol 9 L Free T4 Free T3 pg/mL 2.20 L TSH 3rd Generation 4.55 Arterial Blood Potassium Blood Type Antibody Screen 08/10/17 08/10/17 08/10/17 21:21 21:21 21:31 WBC RBC Hgb Hct MCV MCH MCHC RDW Plt Count MPV Neut % (Auto) Lymph % (Auto) Quay % (Auto) Eos % (Auto) Baso % (Auto) Neut # (Auto) Lymph # (Auto) [place]ay # (Auto) Eos # (Auto) Baso # (Auto) Differential Comment PT INR APTT Puncture Site pCO2 pO2 HCO3 ABG pH ABG Total CO2 ABG O2 Saturation ABG Base Excess ABG Hemoglobin ABG Carboxyhemoglobin POC ABG HHb (Measured) ABG Methemoglobin Juan Test ABG Potassium A-a O2 Difference Respiratory Index Hgb O2 Saturation Glucose Lactate Vent Mode Mechanical Rate FiO2 Tidal Volume PEEP Sodium Potassium Chloride Carbon Dioxide Anion Gap BUN Creatinine Est GFR ( Amer) Est GFR (Non-Af Amer) POC Glucose (mg/dL) Random Glucose Lactic Acid 0.6 L Calcium Phosphorus Magnesium Total Bilirubin AST ALT Alkaline Phosphatase CK-MB (Mass) Troponin I NT-Pro-B Natriuret Pep Total Protein Albumin Globulin Albumin/Globulin Ratio Triglycerides Cholesterol LDL Cholesterol Direct HDL Cholesterol Free T4 1.59 Free T3 pg/mL TSH 3rd Generation Arterial Blood Potassium Blood Type B POSITIVE Antibody Screen Negative 08/10/17 08/10/17 08/11/17 21:34 21:49 00:58 WBC RBC Hgb Hct MCV MCH MCHC RDW Plt Count MPV Neut % (Auto) Lymph % (Auto) Quay % (Auto) Eos % (Auto) Baso % (Auto) Neut # (Auto) Lymph # (Auto) Quay # (Auto) Eos # (Auto) Baso # (Auto) Differential Comment PT INR APTT Puncture Site Rb pCO2 49 H pO2 98 HCO3 26.6 ABG pH 7.37 ABG Total CO2 29.8 H ABG O2 Saturation 98.6 H ABG Base Excess 2.2 ABG Hemoglobin ABG Carboxyhemoglobin POC ABG HHb (Measured) ABG Methemoglobin Juan Test Na ABG Potassium 3.5 L A-a O2 Difference 269.0 Respiratory Index 2.7 Hgb O2 Saturation Glucose 59 L Lactate 0.5 L Vent Mode Prvc Mechanical Rate 22 FiO2 60.0 Tidal Volume 450 PEEP 5 Sodium 137.0 Potassium Chloride 105.0 Carbon Dioxide Anion Gap BUN Creatinine Est GFR ( Amer) Est GFR (Non-Af Amer) POC Glucose (mg/dL) 70 55 L Random Glucose Lactic Acid Calcium Phosphorus Magnesium Total Bilirubin AST ALT Alkaline Phosphatase CK-MB (Mass) Troponin I NT-Pro-B Natriuret Pep Total Protein Albumin Globulin Albumin/Globulin Ratio Triglycerides Cholesterol LDL Cholesterol Direct HDL Cholesterol Free T4 Free T3 pg/mL TSH 3rd Generation Arterial Blood Potassium 3.5 L Blood Type Antibody Screen 08/11/17 08/11/17 08/11/17 01:01 05:02 05:26 WBC RBC Hgb Hct MCV MCH MCHC RDW Plt Count MPV Neut % (Auto) Lymph % (Auto) Quay % (Auto) Eos % (Auto) Baso % (Auto) Neut # (Auto) Lymph # (Auto) Quay # (Auto) Eos # (Auto) Baso # (Auto) Differential Comment PT INR APTT Puncture Site L bra pCO2 33 L pO2 151 H HCO3 26.9 ABG pH 7.50 H ABG Total CO2 26.7 ABG O2 Saturation 99.0 H ABG Base Excess 2.5 ABG Hemoglobin 8.0 L ABG Carboxyhemoglobin 1.4 POC ABG HHb (Measured) 1.0 ABG Methemoglobin 0.9 Juan Test Na ABG Potassium A-a O2 Difference 236.0 Respiratory Index 1.6 Hgb O2 Saturation 96.7 Glucose Lactate Vent Mode Prvc Mechanical Rate 22 FiO2 60.0 Tidal Volume 450 PEEP 5 Sodium Potassium Chloride Carbon Dioxide Anion Gap BUN Creatinine Est GFR ( Amer) Est GFR (Non-Af Amer) POC Glucose (mg/dL) 58 L 71 Random Glucose Lactic Acid Calcium Phosphorus Magnesium Total Bilirubin AST ALT Alkaline Phosphatase CK-MB (Mass) Troponin I NT-Pro-B Natriuret Pep Total Protein Albumin Globulin Albumin/Globulin Ratio Triglycerides Cholesterol LDL Cholesterol Direct HDL Cholesterol Free T4 Free T3 pg/mL TSH 3rd Generation Arterial Blood Potassium Blood Type Antibody Screen 08/11/17 08/11/17 08/11/17 06:38 06:40 10:47 WBC 3.7 L RBC 2.74 L Hgb 8.7 L Hct 24.9 L MCV 90.9 MCH 31.8 H MCHC 35.0 RDW 19.3 H Plt Count 178 MPV 9.1 Neut % (Auto) 57.4 Lymph % (Auto) 15.3 L Quay % (Auto) 15.5 H Eos % (Auto) 10.3 H Baso % (Auto) 1.5 Neut # (Auto) 2.1 Lymph # (Auto) 0.6 L Quay # (Auto) 0.6 Eos # (Auto) 0.4 Baso # (Auto) 0.1 Differential Comment PT INR APTT Puncture Site pCO2 pO2 HCO3 ABG pH ABG Total CO2 ABG O2 Saturation ABG Base Excess ABG Hemoglobin ABG Carboxyhemoglobin POC ABG HHb (Measured) ABG Methemoglobin Juan Test ABG Potassium A-a O2 Difference Respiratory Index Hgb O2 Saturation Glucose Lactate Vent Mode Mechanical Rate FiO2 Tidal Volume PEEP Sodium 133 Potassium 3.6 Chloride 98 Carbon Dioxide 29 Anion Gap 11 BUN 30 H Creatinine 2.8 H Est GFR ( Amer) 28 Est GFR (Non-Af Amer) 23 POC Glucose (mg/dL) 55 L Random Glucose 67 L Lactic Acid Calcium 9.2 Phosphorus 3.3 Magnesium 2.0 Total Bilirubin 0.7 AST 30 ALT 18 L Alkaline Phosphatase 164 H CK-MB (Mass) Troponin I NT-Pro-B Natriuret Pep Total Protein 6.9 Albumin 2.4 L Globulin 4.5 H Albumin/Globulin Ratio 0.5 L Triglycerides Cholesterol LDL Cholesterol Direct HDL Cholesterol Free T4 Free T3 pg/mL TSH 3rd Generation Arterial Blood Potassium Blood Type Antibody Screen 08/11/17 10:48 WBC RBC Hgb Hct MCV MCH MCHC RDW Plt Count MPV Neut % (Auto) Lymph % (Auto) [place]ay % (Auto) Eos % (Auto) Baso % (Auto) Neut # (Auto) Lymph # (Auto) [place] # (Auto) Eos # (Auto) Baso # (Auto) Differential Comment PT INR APTT Puncture Site pCO2 pO2 HCO3 ABG pH ABG Total CO2 ABG O2 Saturation ABG Base Excess ABG Hemoglobin ABG Carboxyhemoglobin POC ABG HHb (Measured) ABG Methemoglobin Juan Test ABG Potassium A-a O2 Difference Respiratory Index Hgb O2 Saturation Glucose Lactate Vent Mode Mechanical Rate FiO2 Tidal Volume PEEP Sodium Potassium Chloride Carbon Dioxide Anion Gap BUN Creatinine Est GFR ( Amer) Est GFR (Non-Af Amer) POC Glucose (mg/dL) 55 L Random Glucose Lactic Acid Calcium Phosphorus Magnesium Total Bilirubin AST ALT Alkaline Phosphatase CK-MB (Mass) Troponin I NT-Pro-B Natriuret Pep Total Protein Albumin Globulin Albumin/Globulin Ratio Triglycerides Cholesterol LDL Cholesterol Direct HDL Cholesterol Free T4 Free T3 pg/mL TSH 3rd Generation Arterial Blood Potassium Blood Type Antibody Screen EKG/Cardiology Studies: Cardiology / EKG Studies 08/10/17 20:13 ELECTROCARDIOGRAM Stat Comment: Mode Of Transportation: Reason For Exam: eval acs Isolation: Contact Fingerstick Blood Sugar Results: 58
--- NOTE | 2017-08-11 11:30 | RAD ---
HISTORY: ETT COMPARISON: In situ ETT, tip of which lies just at the [place] and should be withdrawn. . , tip of which a its me again so there is another pain NGT is present. No change right sided PICC line. FINDINGS: LUNGS: Diffuse bilateral infiltrates with bilateral effusions right larger than left PLEURA: As above. No pneumothorax apparent. . Suspect curvilinear calcified pleural plaque along the left hemidiaphragm CARDIOVASCULAR: Heart size unchanged OSSEOUS STRUCTURES: No significant abnormalities. VISUALIZED UPPER ABDOMEN: Normal. OTHER FINDINGS: None. IMPRESSION: ETT tip lies at/just above the level of the sidney and should be withdrawn slightly. Remaining support lines and tubes as above. Note that the findings were discussed with Dr. He at approximately 11:20 a.m. Diffuse bilateral infiltrates with bilateral effusions right larger than left
[2017-08-11] MEDS ORDERED: EPOETIN ALFA 4,000 UNIT/ML ML Dialysis IV ONE (15:00)
--- NOTE | 2017-08-11 17:43 | CP.PCM.HP ---
Past Patient History - Infectious Disease Hx of Infectious Diseases: None - Tetanus Immunizations Tetanus Immunization: Unknown - Past Medical History & Family History Past Medical History?: Yes - Past Social History Smoking Status: Never Smoked - CARDIAC Hx Congestive Heart Failure: Yes Hx Hypercholesterolemia: Yes Hx Hypertension: Yes Hx Pacemaker: No - PULMONARY Hx Bronchitis: No Hx Chronic Obstructive Pulmonary Disease (COPD): Yes Hx Pneumonia: Yes - NEUROLOGICAL Hx Transient Ischemic Attacks (TIA): Yes - HEENT Hx HEENT Problems: Yes (WEARS RX GLASSES) Hx Cataracts: Yes (RIGHT EYE) Other/Comment: left strabismus - RENAL Date of Last Dialysis Treatment: 08/09/17 - ENDOCRINE/METABOLIC Hx Hypothyroidism: Yes - HEMATOLOGICAL/ONCOLOGICAL Hx Anemia: Yes (BLOOD TRANSFUSION-ACCIDENTAL DISLODGEMENT OF NEEDLE TO SHUNT LOST 2 L OF BL) - INTEGUMENTARY Hx Dermatological Problems: Yes Other/Comment: dry itchy skin - MUSCULOSKELETAL/RHEUMATOLOGICAL Hx Falls: Yes (in the past) - GASTROINTESTINAL Hx Gastrointestinal Disorders: Yes (ASCITES 10-01-14,GASTROENTERITIS) Hx Ulcer: Yes Other/Comment: CONSTIPATION, hx c dif 09/16/15 - GENITOURINARY/GYNECOLOGICAL Hx Genitourinary Disorders: Yes Other/Comment: oliguria - PSYCHIATRIC Hx Substance Use: No - SURGICAL HISTORY Hx Coronary Stent: Yes - ANESTHESIA Hx Anesthesia: Yes Hx Anesthesia Reactions: No Hx Malignant Hyperthermia: No Meds Allergies/Adverse Reactions: Allergies Allergy/AdvReac Type Severity Reaction Status Date / Time tetanus and diphtheria Allergy RASH Verified 12/21/15 11:29 toxoids [tetanus & diphtheria toxoids] Results - Vital Signs Recent Vital Signs: Last Vital Signs Temp 99.4 F 08/11/17 16:18 Pulse 77 08/11/17 16:18 Resp 25 H 08/11/17 16:45 BP 154/34 H 08/11/17 16:45 Pulse Ox 97 08/11/17 15:45 - Labs Result Diagrams: 08/11/17 06:40 08/11/17 06:38 Labs: Laboratory Results - last 24 hr 08/10/17 08/10/17 08/10/17 21:21 21:21 21:21 WBC 4.5 L RBC 2.83 L Hgb 8.8 L D Hct 25.8 L MCV 91.1 MCH 31.2 H MCHC 34.2 RDW 19.3 H Plt Count 179 MPV 9.0 Neut % (Auto) 61.2 Lymph % (Auto) 12.5 L Gregg % (Auto) 15.9 H Eos % (Auto) 9.6 H Baso % (Auto) 0.8 Neut # (Auto) 2.8 Lymph # (Auto) 0.6 L Gregg # (Auto) 0.7 Eos # (Auto) 0.4 Baso # (Auto) 0.0 Differential Comment PT 13.1 H INR 1.2 APTT 46 H Puncture Site pCO2 pO2 HCO3 ABG pH ABG Total CO2 ABG O2 Saturation ABG Base Excess ABG Hemoglobin ABG Carboxyhemoglobin POC ABG HHb (Measured) ABG Methemoglobin Juan Test ABG Potassium A-a O2 Difference Respiratory Index Hgb O2 Saturation Glucose Lactate Vent Mode Mechanical Rate FiO2 Tidal Volume PEEP Sodium 133 Potassium 3.7 Chloride 97 L Carbon Dioxide 28 Anion Gap 12 BUN 28 H Creatinine 2.4 H Est GFR ( Amer) 33 Est GFR (Non-Af Amer) 28 POC Glucose (mg/dL) Random Glucose 65 L Lactic Acid Calcium 9.1 Phosphorus 3.3 Magnesium 1.8 Total Bilirubin 0.6 AST 32 ALT 17 L D Alkaline Phosphatase 174 H D CK-MB (Mass) 1.32 Troponin I 0.0210 NT-Pro-B Natriuret Pep 50721 H Total Protein 6.9 Albumin 2.4 L D Globulin 4.4 H Albumin/Globulin Ratio 0.5 L Triglycerides 90 Cholesterol 54 LDL Cholesterol Direct < 30 HDL Cholesterol 9 L Free T4 Free T3 pg/mL 2.20 L TSH 3rd Generation 4.55 Arterial Blood Potassium Blood Type Antibody Screen 08/10/17 08/10/17 08/10/17 21:21 21:21 21:31 WBC RBC Hgb Hct MCV MCH MCHC RDW Plt Count MPV Neut % (Auto) Lymph % (Auto) Gregg % (Auto) Eos % (Auto) Baso % (Auto) Neut # (Auto) Lymph # (Auto) Gregg # (Auto) Eos # (Auto) Baso # (Auto) Differential Comment PT INR APTT Puncture Site pCO2 pO2 HCO3 ABG pH ABG Total CO2 ABG O2 Saturation ABG Base Excess ABG Hemoglobin ABG Carboxyhemoglobin POC ABG HHb (Measured) ABG Methemoglobin Juan Test ABG Potassium A-a O2 Difference Respiratory Index Hgb O2 Saturation Glucose Lactate Vent Mode Mechanical Rate FiO2 Tidal Volume PEEP Sodium Potassium Chloride Carbon Dioxide Anion Gap BUN Creatinine Est GFR ( Amer) Est GFR (Non-Af Amer) POC Glucose (mg/dL) Random Glucose Lactic Acid 0.6 L Calcium Phosphorus Magnesium Total Bilirubin AST ALT Alkaline Phosphatase CK-MB (Mass) Troponin I NT-Pro-B Natriuret Pep Total Protein Albumin Globulin Albumin/Globulin Ratio Triglycerides Cholesterol LDL Cholesterol Direct HDL Cholesterol Free T4 1.59 Free T3 pg/mL TSH 3rd Generation Arterial Blood Potassium Blood Type B POSITIVE Antibody Screen Negative 08/10/17 08/10/17 08/11/17 21:34 21:49 00:58 WBC RBC Hgb Hct MCV MCH MCHC RDW Plt Count MPV Neut % (Auto) Lymph % (Auto) Gregg % (Auto) Eos % (Auto) Baso % (Auto) Neut # (Auto) Lymph # (Auto) Gregg # (Auto) Eos # (Auto) Baso # (Auto) Differential Comment PT INR APTT Puncture Site Rb pCO2 49 H pO2 98 HCO3 26.6 ABG pH 7.37 ABG Total CO2 29.8 H ABG O2 Saturation 98.6 H ABG Base Excess 2.2 ABG Hemoglobin ABG Carboxyhemoglobin POC ABG HHb (Measured) ABG Methemoglobin Juan Test Na ABG Potassium 3.5 L A-a O2 Difference 269.0 Respiratory Index 2.7 Hgb O2 Saturation Glucose 59 L Lactate 0.5 L Vent Mode Prvc Mechanical Rate 22 FiO2 60.0 Tidal Volume 450 PEEP 5 Sodium 137.0 Potassium Chloride 105.0 Carbon Dioxide Anion Gap BUN Creatinine Est GFR ( Amer) Est GFR (Non-Af Amer) POC Glucose (mg/dL) 70 55 L Random Glucose Lactic Acid Calcium Phosphorus Magnesium Total Bilirubin AST ALT Alkaline Phosphatase CK-MB (Mass) Troponin I NT-Pro-B Natriuret Pep Total Protein Albumin Globulin Albumin/Globulin Ratio Triglycerides Cholesterol LDL Cholesterol Direct HDL Cholesterol Free T4 Free T3 pg/mL TSH 3rd Generation Arterial Blood Potassium 3.5 L Blood Type Antibody Screen 08/11/17 08/11/17 08/11/17 01:01 05:02 05:26 WBC RBC Hgb Hct MCV MCH MCHC RDW Plt Count MPV Neut % (Auto) Lymph % (Auto) Gregg % (Auto) Eos % (Auto) Baso % (Auto) Neut # (Auto) Lymph # (Auto) Gregg # (Auto) Eos # (Auto) Baso # (Auto) Differential Comment PT INR APTT Puncture Site L bra pCO2 33 L pO2 151 H HCO3 26.9 ABG pH 7.50 H ABG Total CO2 26.7 ABG O2 Saturation 99.0 H ABG Base Excess 2.5 ABG Hemoglobin 8.0 L ABG Carboxyhemoglobin 1.4 POC ABG HHb (Measured) 1.0 ABG Methemoglobin 0.9 Juan Test Na ABG Potassium A-a O2 Difference 236.0 Respiratory Index 1.6 Hgb O2 Saturation 96.7 Glucose Lactate Vent Mode Prvc Mechanical Rate 22 FiO2 60.0 Tidal Volume 450 PEEP 5 Sodium Potassium Chloride Carbon Dioxide Anion Gap BUN Creatinine Est GFR ( Amer) Est GFR (Non-Af Amer) POC Glucose (mg/dL) 58 L 71 Random Glucose Lactic Acid Calcium Phosphorus Magnesium Total Bilirubin AST ALT Alkaline Phosphatase CK-MB (Mass) Troponin I NT-Pro-B Natriuret Pep Total Protein Albumin Globulin Albumin/Globulin Ratio Triglycerides Cholesterol LDL Cholesterol Direct HDL Cholesterol Free T4 Free T3 pg/mL TSH 3rd Generation Arterial Blood Potassium Blood Type Antibody Screen 08/11/17 08/11/17 08/11/17 06:38 06:40 10:47 WBC 3.7 L RBC 2.74 L Hgb 8.7 L Hct 24.9 L MCV 90.9 MCH 31.8 H MCHC 35.0 RDW 19.3 H Plt Count 178 MPV 9.1 Neut % (Auto) 57.4 Lymph % (Auto) 15.3 L Gregg % (Auto) 15.5 H Eos % (Auto) 10.3 H Baso % (Auto) 1.5 Neut # (Auto) 2.1 Lymph # (Auto) 0.6 L Gregg # (Auto) 0.6 Eos # (Auto) 0.4 Baso # (Auto) 0.1 Differential Comment PT INR APTT Puncture Site pCO2 pO2 HCO3 ABG pH ABG Total CO2 ABG O2 Saturation ABG Base Excess ABG Hemoglobin ABG Carboxyhemoglobin POC ABG HHb (Measured) ABG Methemoglobin Juan Test ABG Potassium A-a O2 Difference Respiratory Index Hgb O2 Saturation Glucose Lactate Vent Mode Mechanical Rate FiO2 Tidal Volume PEEP Sodium 133 Potassium 3.6 Chloride 98 Carbon Dioxide 29 Anion Gap 11 BUN 30 H Creatinine 2.8 H Est GFR ( Amer) 28 Est GFR (Non-Af Amer) 23 POC Glucose (mg/dL) 55 L Random Glucose 67 L Lactic Acid Calcium 9.2 Phosphorus 3.3 Magnesium 2.0 Total Bilirubin 0.7 AST 30 ALT 18 L Alkaline Phosphatase 164 H CK-MB (Mass) Troponin I NT-Pro-B Natriuret Pep Total Protein 6.9 Albumin 2.4 L Globulin 4.5 H Albumin/Globulin Ratio 0.5 L Triglycerides Cholesterol LDL Cholesterol Direct HDL Cholesterol Free T4 Free T3 pg/mL TSH 3rd Generation Arterial Blood Potassium Blood Type Antibody Screen 08/11/17 08/11/17 08/11/17 10:48 11:18 13:37 WBC RBC Hgb Hct MCV MCH MCHC RDW Plt Count MPV Neut % (Auto) Lymph % (Auto) Gregg % (Auto) Eos % (Auto) Baso % (Auto) Neut # (Auto) Lymph # (Auto) Gregg # (Auto) Eos # (Auto) Baso # (Auto) Differential Comment PT INR APTT Puncture Site pCO2 pO2 HCO3 ABG pH ABG Total CO2 ABG O2 Saturation ABG Base Excess ABG Hemoglobin ABG Carboxyhemoglobin POC ABG HHb (Measured) ABG Methemoglobin Juan Test ABG Potassium A-a O2 Difference Respiratory Index Hgb O2 Saturation Glucose Lactate Vent Mode Mechanical Rate FiO2 Tidal Volume PEEP Sodium Potassium Chloride Carbon Dioxide Anion Gap BUN Creatinine Est GFR ( Amer) Est GFR (Non-Af Amer) POC Glucose (mg/dL) 55 L 120 H 100 Random Glucose Lactic Acid Calcium Phosphorus Magnesium Total Bilirubin AST ALT Alkaline Phosphatase CK-MB (Mass) Troponin I NT-Pro-B Natriuret Pep Total Protein Albumin Globulin Albumin/Globulin Ratio Triglycerides Cholesterol LDL Cholesterol Direct HDL Cholesterol Free T4 Free T3 pg/mL TSH 3rd Generation Arterial Blood Potassium Blood Type Antibody Screen 08/11/17 17:25 WBC RBC Hgb Hct MCV MCH MCHC RDW Plt Count MPV Neut % (Auto) Lymph % (Auto) Gregg % (Auto) Eos % (Auto) Baso % (Auto) Neut # (Auto) Lymph # (Auto) Gregg # (Auto) Eos # (Auto) Baso # (Auto) Differential Comment PT INR APTT Puncture Site pCO2 pO2 HCO3 ABG pH ABG Total CO2 ABG O2 Saturation ABG Base Excess ABG Hemoglobin ABG Carboxyhemoglobin POC ABG HHb (Measured) ABG Methemoglobin Juan Test ABG Potassium A-a O2 Difference Respiratory Index Hgb O2 Saturation Glucose Lactate Vent Mode Mechanical Rate FiO2 Tidal Volume PEEP Sodium Potassium Chloride Carbon Dioxide Anion Gap BUN Creatinine Est GFR ( Amer) Est GFR (Non-Af Amer) POC Glucose (mg/dL) 136 H Random Glucose Lactic Acid Calcium Phosphorus Magnesium Total Bilirubin AST ALT Alkaline Phosphatase CK-MB (Mass) Troponin I NT-Pro-B Natriuret Pep Total Protein Albumin Globulin Albumin/Globulin Ratio Triglycerides Cholesterol LDL Cholesterol Direct HDL Cholesterol Free T4 Free T3 pg/mL TSH 3rd Generation Arterial Blood Potassium Blood Type Antibody Screen
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
[2017-08-11] MEDS: Rosuvastatin Calcium 2.5 mg Tab PO SCH (21:11)
[2017-08-12] MEDS: Albuterol-Ipratrop 3 mg / 0.5 (3 ml) UD INH SCH ×4 (01:33→19:52)
[2017-08-12] MEDS: Sucralfate 1 gm/10 ml Oral Susp UD NG SCH ×4 (01:33→21:55)
[2017-08-12] MEDS: (Novolog) Insulin Aspart, Recombinant 100 u/ml 10 ml vial SC SCH ×6 (01:34→21:44)
[2017-08-12 05:04] LABS: BASO # 0.1 K/uL (0.0-0.2); BASO % 0.9 % (0.0-2.0); EOS # 0.5 K/uL (0.0-0.7); EOS % 7.6 % (0.0-4.0); HEMOGLOBIN 8.8 g/dL (12.0-18.0); LYMPH # 0.8 K/uL (1.0-4.3); LYMPH % 13.2 % (20.0-40.0); MEAN CELL VOLUME 88.8 fL (80.0-94.0); MEAN CORPUSCULAR HEMOGLOBIN 29.9 pg (27.0-31.0); MEAN CORPUSCULAR HGB CONC 33.7 g/dL (33.0-37.0); MEAN PLATELET VOLUME 9.2 fL (7.2-11.7); MONO # 0.9 K/uL (0.0-0.8); MONO % 14.4 % (0.0-10.0); NEUT # 3.8 K/uL (1.8-7.0); NEUT % 63.9 % (50.0-75.0); RBC 2.95 Mil/uL (4.40-5.90); RED CELL DISTRIBUTION WIDTH 19.3 % (11.5-14.5)
[2017-08-12 05:29] LABS: ALB/GLOB RATIO 0.5 (1.0-2.1); ALBUMIN 2.4 g/dL (3.5-5.0); CALCIUM 8.5 mg/dl (8.6-10.4); MAGNESIUM 1.9 mg/dL (1.6-2.3)
[2017-08-12 06:12] LABS: ARTERIAL BLOOD GAS HCO3 28.7 mmol/L (21-28); ARTERIAL BLOOD GAS HEMOGLOBIN 9.5 g/dL (11.7-17.4); ARTERIAL BLOOD GAS O2 SAT 97.9 % (95-98); ARTERIAL BLOOD GAS PCO2 49 mm/Hg (35-45); ARTERIAL BLOOD GAS PO2 97 mm/Hg (80-100); ARTERIAL BLOOD GAS TCO2 31.9 mmol/L (22-28)
[2017-08-12] MEDS ORDERED: Dextrose 50% VIAL Inj (50 ml) IV ONE ×2 (06:21→11:40)
[2017-08-12] MEDS ORDERED: Dextrose 50% VIAL Inj (50 ml) IV STA (06:25)
--- NOTE | 2017-08-12 08:10 | CP.PCM.PN ---
Subjective - Date & Time of Evaluation Date of Evaluation: 08/12/17 Time of Evaluation: 07:45 - Subjective Subjective: General Surgery Dr. Deshpande Pt S&E @bedside. NAEO. Pt intubated and unresponsive to verbal stimuli. ROS unobtainable. Vent settings: 22, 450, 5, 60% Objective - Vital Signs/Intake and Output Vital Signs (last 24 hours): Temp Pulse Resp BP Pulse Ox 97.1 F L 85 25 H 112/31 L 100 08/12/17 04:00 08/12/17 06:17 08/12/17 06:17 08/12/17 06:17 08/12/17 06:17 Intake and Output: 08/12/17 08/12/17 06:59 18:59 Intake Total 270 Output Total 30 Balance 240 - Medications Medications: Current Medications Albuterol/Ipratropium (Duoneb 3 Mg/0.5 Mg (3 Ml) Ud) 3 ml INH RQ6 [facility] Last Admin: 08/12/17 01:33 Dose: 3 ml Aspirin (Aspirin Chewable) 81 mg PO DAILY [facility] Last Admin: 08/11/17 10:47 Dose: 81 mg Carvedilol (Coreg) 6.25 mg PO BID [facility] Last Admin: 08/11/17 17:03 Dose: Not Given Clopidogrel Bisulfate (Plavix) 75 mg PO DAILY [facility] Last Admin: 08/11/17 10:45 Dose: 75 mg Docusate Sodium (Colace) 100 mg PO BID PRN PRN Reason: Constipation Famotidine (Pepcid) 20 mg IVP DAILY [facility] Last Admin: 08/11/17 10:45 Dose: 20 mg Heparin Sodium (Porcine) (Heparin) 5,000 units SC Q12 [facility] Last Admin: 08/11/17 10:45 Dose: 5,000 units Propofol (Diprivan) 1,000 mg in 100 mls @ 2.22 mls/hr IV .Q24H PRN; Protocol; 5 MCG/KG/MIN PRN Reason: TITRATE PER MD ORDER Dextrose/Sodium Chloride (Dextrose 5%-0.45% Ns 500 Ml) 500 mls @ 30 mls/hr IV .[id number] ONE Stop: 08/12/17 13:54 Insulin Aspart (Novolog) 0 unit SC Q4H [facility] PRN Reason: Protocol Last Admin: 08/11/17 21:09 Dose: Not Given Rosuvastatin Calcium (Crestor) 2.5 mg PO HS [facility] Last Admin: 08/11/17 21:11 Dose: Not Given Sevelamer Carbonate (Renvela) 0.8 gm NG TIDCC [facility] Last Admin: 08/11/17 12:00 Dose: 0.8 gm Sucralfate (Carafate Oral Susp) 1 gm NG Q6H [facility] Last Admin: 08/11/17 21:11 Dose: Not Given - Labs Labs: 08/12/17 04:55 08/12/17 04:55 PT 13.1 SECONDS (9.7-12.2) H 08/10/17 21:21 INR 1.2 08/10/17 21:21 APTT 46 SECONDS (21-34) H 08/10/17 21:21 - Constitutional Appears: No Acute Distress, Chronically Ill - Head Exam Head Exam: NORMAL INSPECTION - Eye Exam Eye Exam: Normal appearance - ENT Exam ENT Exam: Mucous Membranes Moist Additional comments: OGT and ETT in place - Respiratory Exam Respiratory Exam: NORMAL BREATHING PATTERN (mechanical ventiation). absent: Accessory Muscle Use, Respiratory Distress - GI/Abdominal Exam GI & Abdominal Exam: Soft, Hernia (incisiona hernia). absent: Distended, Guarding, Rebound - Extremities Exam Additional comments: diffuse pitting edema UE&LE B/L - Neurological Exam Neurological Exam: absent: Awake - Skin Skin Exam: Dry, Normal Color, Warm Assessment and Plan - Assessment and Plan (Free Text) Assessment: 62 y/o M w/ (L) vocal cord paralysis, dysphagia and respiratory failure 2/2 pneumonia - plan for Tracheostomy on Sunday --> consent to be obtained from Daughter - possible G- vs J-tube due to pts surgical Hx and incisional hernia - monitor vitals - cont medical management per Critical Care - GI/DVT PPx Pt discussed w/ Dr. Charlee Gamino DO PGY2
[2017-08-12] MEDS: Sevelamer Carb 0.8 gm/Packet NG SCH ×3 (09:00→17:44)
--- NOTE | 2017-08-12 09:16 | CP.CCUPN ---
CCU Subjective - Physician Review Events Since Last Encounter (Free Text): 62-year-old male with a history of end-stage renal disease on dialysis, cad, hypertension COPD diabetes admitted from [facility] for trach and peg pt had respiratory arrest during the last hospitalization and intubated still Patient has a multiple hospitalization in the past. Past medical history: End-stage renal disease on dialysis coronary artery disease, cardiac stent, congestive heart failure, hypertension, COPD and diabetes Surgical history including AV fistula. Social history: Patient from residential. Review of system: Patient is currently on ventilator. Vital signs reviewed No neck vein distention noted Chest bilateral wheezing and rhonchi noted CVS regular heart sound, no murmur noted Abdomen soft, nontender. 1+ pedal edema Patient is currently sedated. Chest x-ray shoveling earlier diffuse congestive heart failure, possible aspiration pneumonia culture positive for GNB Repeat chest x-ray pending. Patient's labs nonspecific Assessment and recommendation: 61-year-old male with a history of diabetes hypertension COPD, end-stage renal disease on dialysis coronary disease, stenting admitted with the shortness of breath, complicated, bradycardia, respiratory arrest status post intubation. for trach and peg in am CCU Objective - Vital Signs / Intake & Output Vital Signs (Last 4 hours): Vital Signs Pulse Resp BP Pulse Ox 08/12/17 06:17 85 25 H 112/31 L 100 08/12/17 06:00 85 21 100 08/12/17 05:17 87 21 131/35 L 100 Intake and Output (Last 8hrs): Intake & Output 08/11/17 08/12/17 08/12/17 22:59 06:59 14:59 Intake Total 60 240 Output Total 90 0 Balance -30 240 Intake: Intake, IV Amount 30 240 Right PICC 30 240 Oral 0 Tube Feeding 30 0 Output: Urine 0 0 Urine, Voided 0 0 Oral Regurgitation 90 0 Other: # Bowel Movements 0 1 - Medications Active Medications: Active Medications Generic Name Dose Route Start Last Admin Trade Name Freq PRN Reason Stop Dose Admin Albuterol/Ipratropium 3 ml 08/11/17 02:00 08/12/17 08:23 Duoneb 3 Mg/0.5 Mg (3 Ml) Ud INH 3 ml RQ6 [facility]E Administration Aspirin 81 mg 08/11/17 10:00 08/11/17 10:47 Aspirin Chewable PO 81 mg DAILY B[facility]E Administration Carvedilol 6.25 mg 08/11/17 10:00 08/11/17 17:03 Coreg PO Not Given BID BAYLEE Clopidogrel Bisulfate 75 mg 08/11/17 10:00 08/11/17 10:45 Plavix PO 75 mg DAILY [facility] Administration Docusate Sodium 100 mg 08/10/17 20:10 Colace PO BID PRN Constipation Famotidine 20 mg 08/11/17 10:00 08/11/17 10:45 Pepcid IVP 20 mg DAILY BAYLEE Administration Heparin Sodium (Porcine) 5,000 units 08/10/17 22:00 08/11/17 10:45 Heparin SC 5,000 units Q12 [facility] Administration Propofol 1,000 mg in 100 mls @ 2.22 mls/hr 08/10/17 20:10 Diprivan IV .Q24H PRN TITRATE PER MD ORDER Protocol 5 MCG/KG/MIN Dextrose/Sodium Chloride 500 mls @ 30 mls/hr 08/11/17 21:15 Dextrose 5%-0.45% Ns 500 Ml IV 08/12/17 13:54 .[id number] ONE Insulin Aspart 0 unit 08/10/17 21:00 08/12/17 05:35 Novolog SC Not Given Q4H [facility] Protocol Rosuvastatin Calcium 2.5 mg 08/11/17 22:00 08/11/17 21:11 Crestor PO Not Given HS [facility] Sevelamer Carbonate 0.8 gm 08/11/17 08:00 08/11/17 12:00 Renvela NG 0.8 gm TIDCC [facility] Administration Sucralfate 1 gm 08/10/17 20:15 08/12/17 01:33 Carafate Oral Susp NG Not Given Q6H [facility] - Patient Studies Lab Studies: Microbiology Studies 08/10/17 Unknown Gram Stain - Final Trachasp Sputum Culture - Preliminary Gram Negative Giovanni 08/10/17 21:00 Blood Culture - Preliminary Blood NO GROWTH AFTER 24 HOURS 08/10/17 20:30 Blood Culture - Preliminary Blood NO GROWTH AFTER 24 HOURS Lab Studies 08/12/17 08/12/17 08/12/17 Range/Units 07:25 05:31 05:30 WBC (4.8-10.8) K/uL RBC (4.40-5.90) Mil/uL Hgb (12.0-18.0) g/dL Hct (35.0-51.0) % MCV (80.0-94.0) fL MCH (27.0-31.0) pg MCHC (33.0-37.0) g/dL RDW (11.5-14.5) % Plt Count (130-400) K/uL MPV (7.2-11.7) fL Neut % (Auto) (50.0-75.0) % Lymph % (Auto) (20.0-40.0) % [place] % (Auto) (0.0-10.0) % Eos % (Auto) (0.0-4.0) % Baso % (Auto) (0.0-2.0) % Neut # (Auto) (1.8-7.0) K/uL Lymph # (Auto) (1.0-4.3) K/uL [place] # (Auto) (0.0-0.8) K/uL Eos # (Auto) (0.0-0.7) K/uL Baso # (Auto) (0.0-0.2) K/uL Puncture Site pCO2 (35-45) mm/Hg pO2 (80-100) mm/Hg HCO3 (21-28) mmol/L ABG pH (7.35-7.45) ABG Total CO2 (22-28) mmol/L ABG O2 Saturation (95-98) % ABG Base Excess (-2.0-3.0) mmol/L ABG Hemoglobin (11.7-17.4) g/dL ABG Carboxyhemoglobin (0.5-1.5) % POC ABG HHb (Measured) (0.0-5.0) % ABG Methemoglobin (0.0-3.0) % Juan Test A-a O2 Difference mm/Hg Respiratory Index Hgb O2 Saturation (95.0-98.0) % Vent Mode Mechanical Rate FiO2 % Tidal Volume PEEP Sodium (132-148) mmol/L Potassium (3.6-5.2) mmol/L Chloride (98-107) mmol/L Carbon Dioxide (22-30) mmol/L Anion Gap (10-20) BUN (9-20) mg/dL Creatinine (0.8-1.5) mg/dL Est GFR ( Amer) Est GFR (Non-Af Amer) POC Glucose (mg/dL) 104 66 65 (65-110) mg/dL Random Glucose (75-110) mg/dL Calcium (8.6-10.4) mg/dl Phosphorus (2.5-4.5) mg/dL Magnesium (1.6-2.3) mg/dL Total Bilirubin (0.2-1.3) mg/dL AST (17-59) U/L ALT (21-72) U/L Alkaline Phosphatase (38-126) U/L Total Protein (6.3-8.3) g/dL Albumin (3.5-5.0) g/dL Globulin (2.2-3.9) gm/dL Albumin/Globulin Ratio (1.0-2.1) Hep Bs Antigen (NEGATIVE) Hep Bs Antibody (NEGATIVE) 08/12/17 08/12/17 08/12/17 Range/Units 04:55 04:55 04:50 WBC 6.0 D (4.8-10.8) K/uL RBC 2.95 L (4.40-5.90) Mil/uL Hgb 8.8 L (12.0-18.0) g/dL Hct 26.2 L (35.0-51.0) % MCV 88.8 D (80.0-94.0) fL MCH 29.9 (27.0-31.0) pg MCHC 33.7 (33.0-37.0) g/dL RDW 19.3 H (11.5-14.5) % Plt Count 179 (130-400) K/uL MPV 9.2 (7.2-11.7) fL Neut % (Auto) 63.9 (50.0-75.0) % Lymph % (Auto) 13.2 L (20.0-40.0) % [place] % (Auto) 14.4 H (0.0-10.0) % Eos % (Auto) 7.6 H (0.0-4.0) % Baso % (Auto) 0.9 (0.0-2.0) % Neut # (Auto) 3.8 (1.8-7.0) K/uL Lymph # (Auto) 0.8 L (1.0-4.3) K/uL [place] # (Auto) 0.9 H (0.0-0.8) K/uL Eos # (Auto) 0.5 (0.0-0.7) K/uL Baso # (Auto) 0.1 (0.0-0.2) K/uL Puncture Site R bra pCO2 49 H (35-45) mm/Hg pO2 97 (80-100) mm/Hg HCO3 28.7 H (21-28) mmol/L ABG pH 7.40 (7.35-7.45) ABG Total CO2 31.9 H (22-28) mmol/L ABG O2 Saturation 97.9 (95-98) % ABG Base Excess 4.9 H (-2.0-3.0) mmol/L ABG Hemoglobin 9.5 L (11.7-17.4) g/dL ABG Carboxyhemoglobin 1.9 H (0.5-1.5) % POC ABG HHb (Measured) 2.0 (0.0-5.0) % ABG Methemoglobin 1.6 (0.0-3.0) % Juan Test Na A-a O2 Difference 270.0 mm/Hg Respiratory Index 2.8 Hgb O2 Saturation 94.4 L (95.0-98.0) % Vent Mode Prvc Mechanical Rate 22 FiO2 60.0 % Tidal Volume 450 PEEP 5 Sodium 133 (132-148) mmol/L Potassium 3.3 L (3.6-5.2) mmol/L Chloride 94 L (98-107) mmol/L Carbon Dioxide 32 H (22-30) mmol/L Anion Gap 10 (10-20) BUN 20 (9-20) mg/dL Creatinine 2.2 H (0.8-1.5) mg/dL Est GFR ( Amer) 37 Est GFR (Non-Af Amer) 31 POC Glucose (mg/dL) (65-110) mg/dL Random Glucose 66 L (75-110) mg/dL Calcium 8.5 L (8.6-10.4) mg/dl Phosphorus 2.5 (2.5-4.5) mg/dL Magnesium 1.9 (1.6-2.3) mg/dL Total Bilirubin 0.8 (0.2-1.3) mg/dL AST 28 (17-59) U/L ALT 14 L D (21-72) U/L Alkaline Phosphatase 161 H (38-126) U/L Total Protein 7.3 (6.3-8.3) g/dL Albumin 2.4 L (3.5-5.0) g/dL Globulin 4.8 H (2.2-3.9) gm/dL Albumin/Globulin Ratio 0.5 L (1.0-2.1) Hep Bs Antigen (NEGATIVE) Hep Bs Antibody (NEGATIVE) 08/12/17 08/11/17 08/11/17 Range/Units 01:06 20:46 17:25 WBC (4.8-10.8) K/uL RBC (4.40-5.90) Mil/uL Hgb (12.0-18.0) g/dL Hct (35.0-51.0) % MCV (80.0-94.0) fL MCH (27.0-31.0) pg MCHC (33.0-37.0) g/dL RDW (11.5-14.5) % Plt Count (130-400) K/uL MPV (7.2-11.7) fL Neut % (Auto) (50.0-75.0) % Lymph % (Auto) (20.0-40.0) % [place] % (Auto) (0.0-10.0) % Eos % (Auto) (0.0-4.0) % Baso % (Auto) (0.0-2.0) % Neut # (Auto) (1.8-7.0) K/uL Lymph # (Auto) (1.0-4.3) K/uL [place] # (Auto) (0.0-0.8) K/uL Eos # (Auto) (0.0-0.7) K/uL Baso # (Auto) (0.0-0.2) K/uL Puncture Site pCO2 (35-45) mm/Hg pO2 (80-100) mm/Hg HCO3 (21-28) mmol/L ABG pH (7.35-7.45) ABG Total CO2 (22-28) mmol/L ABG O2 Saturation (95-98) % ABG Base Excess (-2.0-3.0) mmol/L ABG Hemoglobin (11.7-17.4) g/dL ABG Carboxyhemoglobin (0.5-1.5) % POC ABG HHb (Measured) (0.0-5.0) % ABG Methemoglobin (0.0-3.0) % Juan Test A-a O2 Difference mm/Hg Respiratory Index Hgb O2 Saturation (95.0-98.0) % Vent Mode Mechanical Rate FiO2 % Tidal Volume PEEP Sodium (132-148) mmol/L Potassium (3.6-5.2) mmol/L Chloride (98-107) mmol/L Carbon Dioxide (22-30) mmol/L Anion Gap (10-20) BUN (9-20) mg/dL Creatinine (0.8-1.5) mg/dL Est GFR ( Amer) Est GFR (Non-Af Amer) POC Glucose (mg/dL) 70 79 136 H (65-110) mg/dL Random Glucose (75-110) mg/dL Calcium (8.6-10.4) mg/dl Phosphorus (2.5-4.5) mg/dL Magnesium (1.6-2.3) mg/dL Total Bilirubin (0.2-1.3) mg/dL AST (17-59) U/L ALT (21-72) U/L Alkaline Phosphatase (38-126) U/L Total Protein (6.3-8.3) g/dL Albumin (3.5-5.0) g/dL Globulin (2.2-3.9) gm/dL Albumin/Globulin Ratio (1.0-2.1) Hep Bs Antigen (NEGATIVE) Hep Bs Antibody (NEGATIVE) 08/11/17 08/11/17 08/11/17 Range/Units 16:28 16:28 16:09 WBC (4.8-10.8) K/uL RBC (4.40-5.90) Mil/uL Hgb (12.0-18.0) g/dL Hct (35.0-51.0) % MCV (80.0-94.0) fL MCH (27.0-31.0) pg MCHC (33.0-37.0) g/dL RDW (11.5-14.5) % Plt Count (130-400) K/uL MPV (7.2-11.7) fL Neut % (Auto) (50.0-75.0) % Lymph % (Auto) (20.0-40.0) % [place] % (Auto) (0.0-10.0) % Eos % (Auto) (0.0-4.0) % Baso % (Auto) (0.0-2.0) % Neut # (Auto) (1.8-7.0) K/uL Lymph # (Auto) (1.0-4.3) K/uL [place] # (Auto) (0.0-0.8) K/uL Eos # (Auto) (0.0-0.7) K/uL Baso # (Auto) (0.0-0.2) K/uL Puncture Site pCO2 (35-45) mm/Hg pO2 (80-100) mm/Hg HCO3 (21-28) mmol/L ABG pH (7.35-7.45) ABG Total CO2 (22-28) mmol/L ABG O2 Saturation (95-98) % ABG Base Excess (-2.0-3.0) mmol/L ABG Hemoglobin (11.7-17.4) g/dL ABG Carboxyhemoglobin (0.5-1.5) % POC ABG HHb (Measured) (0.0-5.0) % ABG Methemoglobin (0.0-3.0) % Juan Test A-a O2 Difference mm/Hg Respiratory Index Hgb O2 Saturation (95.0-98.0) % Vent Mode Mechanical Rate FiO2 % Tidal Volume PEEP Sodium (132-148) mmol/L Potassium (3.6-5.2) mmol/L Chloride (98-107) mmol/L Carbon Dioxide (22-30) mmol/L Anion Gap (10-20) BUN (9-20) mg/dL Creatinine (0.8-1.5) mg/dL Est GFR ( Amer) Est GFR (Non-Af Amer) POC Glucose (mg/dL) 67 (65-110) mg/dL Random Glucose (75-110) mg/dL Calcium (8.6-10.4) mg/dl Phosphorus (2.5-4.5) mg/dL Magnesium (1.6-2.3) mg/dL Total Bilirubin (0.2-1.3) mg/dL AST (17-59) U/L ALT (21-72) U/L Alkaline Phosphatase (38-126) U/L Total Protein (6.3-8.3) g/dL Albumin (3.5-5.0) g/dL Globulin (2.2-3.9) gm/dL Albumin/Globulin Ratio (1.0-2.1) Hep Bs Antigen Negative (NEGATIVE) Hep Bs Antibody Negative (NEGATIVE) 08/11/17 08/11/17 08/11/17 Range/Units 16:05 13:37 11:18 WBC (4.8-10.8) K/uL RBC (4.40-5.90) Mil/uL Hgb (12.0-18.0) g/dL Hct (35.0-51.0) % MCV (80.0-94.0) fL MCH (27.0-31.0) pg MCHC (33.0-37.0) g/dL RDW (11.5-14.5) % Plt Count (130-400) K/uL MPV (7.2-11.7) fL Neut % (Auto) (50.0-75.0) % Lymph % (Auto) (20.0-40.0) % [place] % (Auto) (0.0-10.0) % Eos % (Auto) (0.0-4.0) % Baso % (Auto) (0.0-2.0) % Neut # (Auto) (1.8-7.0) K/uL Lymph # (Auto) (1.0-4.3) K/uL [place] # (Auto) (0.0-0.8) K/uL Eos # (Auto) (0.0-0.7) K/uL Baso # (Auto) (0.0-0.2) K/uL Puncture Site pCO2 (35-45) mm/Hg pO2 (80-100) mm/Hg HCO3 (21-28) mmol/L ABG pH (7.35-7.45) ABG Total CO2 (22-28) mmol/L ABG O2 Saturation (95-98) % ABG Base Excess (-2.0-3.0) mmol/L ABG Hemoglobin (11.7-17.4) g/dL ABG Carboxyhemoglobin (0.5-1.5) % POC ABG HHb (Measured) (0.0-5.0) % ABG Methemoglobin (0.0-3.0) % Juan Test A-a O2 Difference mm/Hg Respiratory Index Hgb O2 Saturation (95.0-98.0) % Vent Mode Mechanical Rate FiO2 % Tidal Volume PEEP Sodium (132-148) mmol/L Potassium (3.6-5.2) mmol/L Chloride (98-107) mmol/L Carbon Dioxide (22-30) mmol/L Anion Gap (10-20) BUN (9-20) mg/dL Creatinine (0.8-1.5) mg/dL Est GFR ( Amer) Est GFR (Non-Af Amer) POC Glucose (mg/dL) 63 L 100 120 H (65-110) mg/dL Random Glucose (75-110) mg/dL Calcium (8.6-10.4) mg/dl Phosphorus (2.5-4.5) mg/dL Magnesium (1.6-2.3) mg/dL Total Bilirubin (0.2-1.3) mg/dL AST (17-59) U/L ALT (21-72) U/L Alkaline Phosphatase (38-126) U/L Total Protein (6.3-8.3) g/dL Albumin (3.5-5.0) g/dL Globulin (2.2-3.9) gm/dL Albumin/Globulin Ratio (1.0-2.1) Hep Bs Antigen (NEGATIVE) Hep Bs Antibody (NEGATIVE) 08/11/17 08/11/17 Range/Units 10:48 10:47 WBC (4.8-10.8) K/uL RBC (4.40-5.90) Mil/uL Hgb (12.0-18.0) g/dL Hct (35.0-51.0) % MCV (80.0-94.0) fL MCH (27.0-31.0) pg MCHC (33.0-37.0) g/dL RDW (11.5-14.5) % Plt Count (130-400) K/uL MPV (7.2-11.7) fL Neut % (Auto) (50.0-75.0) % Lymph % (Auto) (20.0-40.0) % [place] % (Auto) (0.0-10.0) % Eos % (Auto) (0.0-4.0) % Baso % (Auto) (0.0-2.0) % Neut # (Auto) (1.8-7.0) K/uL Lymph # (Auto) (1.0-4.3) K/uL [place] # (Auto) (0.0-0.8) K/uL Eos # (Auto) (0.0-0.7) K/uL Baso # (Auto) (0.0-0.2) K/uL Puncture Site pCO2 (35-45) mm/Hg pO2 (80-100) mm/Hg HCO3 (21-28) mmol/L ABG pH (7.35-7.45) ABG Total CO2 (22-28) mmol/L ABG O2 Saturation (95-98) % ABG Base Excess (-2.0-3.0) mmol/L ABG Hemoglobin (11.7-17.4) g/dL ABG Carboxyhemoglobin (0.5-1.5) % POC ABG HHb (Measured) (0.0-5.0) % ABG Methemoglobin (0.0-3.0) % Juan Test A-a O2 Difference mm/Hg Respiratory Index Hgb O2 Saturation (95.0-98.0) % Vent Mode Mechanical Rate FiO2 % Tidal Volume PEEP Sodium (132-148) mmol/L Potassium (3.6-5.2) mmol/L Chloride (98-107) mmol/L Carbon Dioxide (22-30) mmol/L Anion Gap (10-20) BUN (9-20) mg/dL Creatinine (0.8-1.5) mg/dL Est GFR ( Amer) Est GFR (Non-Af Amer) POC Glucose (mg/dL) 55 L 55 L (65-110) mg/dL Random Glucose (75-110) mg/dL Calcium (8.6-10.4) mg/dl Phosphorus (2.5-4.5) mg/dL Magnesium (1.6-2.3) mg/dL Total Bilirubin (0.2-1.3) mg/dL AST (17-59) U/L ALT (21-72) U/L Alkaline Phosphatase (38-126) U/L Total Protein (6.3-8.3) g/dL Albumin (3.5-5.0) g/dL Globulin (2.2-3.9) gm/dL Albumin/Globulin Ratio (1.0-2.1) Hep Bs Antigen (NEGATIVE) Hep Bs Antibody (NEGATIVE) Laboratory Results - last 24 hr 08/11/17 08/11/17 08/11/17 10:47 10:48 11:18 WBC RBC Hgb Hct MCV MCH MCHC RDW Plt Count MPV Neut % (Auto) Lymph % (Auto) [place] % (Auto) Eos % (Auto) Baso % (Auto) Neut # (Auto) Lymph # (Auto) [place] # (Auto) Eos # (Auto) Baso # (Auto) Puncture Site pCO2 pO2 HCO3 ABG pH ABG Total CO2 ABG O2 Saturation ABG Base Excess ABG Hemoglobin ABG Carboxyhemoglobin POC ABG HHb (Measured) ABG Methemoglobin Juan Test A-a O2 Difference Respiratory Index Hgb O2 Saturation Vent Mode Mechanical Rate FiO2 Tidal Volume PEEP Sodium Potassium Chloride Carbon Dioxide Anion Gap BUN Creatinine Est GFR ( Amer) Est GFR (Non-Af Amer) POC Glucose (mg/dL) 55 L 55 L 120 H Random Glucose Calcium Phosphorus Magnesium Total Bilirubin AST ALT Alkaline Phosphatase Total Protein Albumin Globulin Albumin/Globulin Ratio Hep Bs Antigen Hep Bs Antibody 08/11/17 08/11/17 08/11/17 13:37 16:05 16:09 WBC RBC Hgb Hct MCV MCH MCHC RDW Plt Count MPV Neut % (Auto) Lymph % (Auto) [place] % (Auto) Eos % (Auto) Baso % (Auto) Neut # (Auto) Lymph # (Auto) [place] # (Auto) Eos # (Auto) Baso # (Auto) Puncture Site pCO2 pO2 HCO3 ABG pH ABG Total CO2 ABG O2 Saturation ABG Base Excess ABG Hemoglobin ABG Carboxyhemoglobin POC ABG HHb (Measured) ABG Methemoglobin Juan Test A-a O2 Difference Respiratory Index Hgb O2 Saturation Vent Mode Mechanical Rate FiO2 Tidal Volume PEEP Sodium Potassium Chloride Carbon Dioxide Anion Gap BUN Creatinine Est GFR ( Amer) Est GFR (Non-Af Amer) POC Glucose (mg/dL) 100 63 L 67 Random Glucose Calcium Phosphorus Magnesium Total Bilirubin AST ALT Alkaline Phosphatase Total Protein Albumin Globulin Albumin/Globulin Ratio Hep Bs Antigen Hep Bs Antibody 08/11/17 08/11/17 08/11/17 16:28 16:28 17:25 WBC RBC Hgb Hct MCV MCH MCHC RDW Plt Count MPV Neut % (Auto) Lymph % (Auto) [place] % (Auto) Eos % (Auto) Baso % (Auto) Neut # (Auto) Lymph # (Auto) [place] # (Auto) Eos # (Auto) Baso # (Auto) Puncture Site pCO2 pO2 HCO3 ABG pH ABG Total CO2 ABG O2 Saturation ABG Base Excess ABG Hemoglobin ABG Carboxyhemoglobin POC ABG HHb (Measured) ABG Methemoglobin Juan Test A-a O2 Difference Respiratory Index Hgb O2 Saturation Vent Mode Mechanical Rate FiO2 Tidal Volume PEEP Sodium Potassium Chloride Carbon Dioxide Anion Gap BUN Creatinine Est GFR ( Amer) Est GFR (Non-Af Amer) POC Glucose (mg/dL) 136 H Random Glucose Calcium Phosphorus Magnesium Total Bilirubin AST ALT Alkaline Phosphatase Total Protein Albumin Globulin Albumin/Globulin Ratio Hep Bs Antigen Negative Hep Bs Antibody Negative 08/11/17 08/12/17 08/12/17 20:46 01:06 04:50 WBC RBC Hgb Hct MCV MCH MCHC RDW Plt Count MPV Neut % (Auto) Lymph % (Auto) [place] % (Auto) Eos % (Auto) Baso % (Auto) Neut # (Auto) Lymph # (Auto) [place] # (Auto) Eos # (Auto) Baso # (Auto) Puncture Site R bra pCO2 49 H pO2 97 HCO3 28.7 H ABG pH 7.40 ABG Total CO2 31.9 H ABG O2 Saturation 97.9 ABG Base Excess 4.9 H ABG Hemoglobin 9.5 L ABG Carboxyhemoglobin 1.9 H POC ABG HHb (Measured) 2.0 ABG Methemoglobin 1.6 Juan Test Na A-a O2 Difference 270.0 Respiratory Index 2.8 Hgb O2 Saturation 94.4 L Vent Mode Prvc Mechanical Rate 22 FiO2 60.0 Tidal Volume 450 PEEP 5 Sodium Potassium Chloride Carbon Dioxide Anion Gap BUN Creatinine Est GFR ( Amer) Est GFR (Non-Af Amer) POC Glucose (mg/dL) 79 70 Random Glucose Calcium Phosphorus Magnesium Total Bilirubin AST ALT Alkaline Phosphatase Total Protein Albumin Globulin Albumin/Globulin Ratio Hep Bs Antigen Hep Bs Antibody 08/12/17 08/12/17 08/12/17 04:55 04:55 05:30 WBC 6.0 D RBC 2.95 L Hgb 8.8 L Hct 26.2 L MCV 88.8 D MCH 29.9 MCHC 33.7 RDW 19.3 H Plt Count 179 MPV 9.2 Neut % (Auto) 63.9 Lymph % (Auto) 13.2 L [place] % (Auto) 14.4 H Eos % (Auto) 7.6 H Baso % (Auto) 0.9 Neut # (Auto) 3.8 Lymph # (Auto) 0.8 L [place] # (Auto) 0.9 H Eos # (Auto) 0.5 Baso # (Auto) 0.1 Puncture Site pCO2 pO2 HCO3 ABG pH ABG Total CO2 ABG O2 Saturation ABG Base Excess ABG Hemoglobin ABG Carboxyhemoglobin POC ABG HHb (Measured) ABG Methemoglobin Juan Test A-a O2 Difference Respiratory Index Hgb O2 Saturation Vent Mode Mechanical Rate FiO2 Tidal Volume PEEP Sodium 133 Potassium 3.3 L Chloride 94 L Carbon Dioxide 32 H Anion Gap 10 BUN 20 Creatinine 2.2 H Est GFR ( Amer) 37 Est GFR (Non-Af Amer) 31 POC Glucose (mg/dL) 65 Random Glucose 66 L Calcium 8.5 L Phosphorus 2.5 Magnesium 1.9 Total Bilirubin 0.8 AST 28 ALT 14 L D Alkaline Phosphatase 161 H Total Protein 7.3 Albumin 2.4 L Globulin 4.8 H Albumin/Globulin Ratio 0.5 L Hep Bs Antigen Hep Bs Antibody 08/12/17 08/12/17 05:31 07:25 WBC RBC Hgb Hct MCV MCH MCHC RDW Plt Count MPV Neut % (Auto) Lymph % (Auto) [place] % (Auto) Eos % (Auto) Baso % (Auto) Neut # (Auto) Lymph # (Auto) [place] # (Auto) Eos # (Auto) Baso # (Auto) Puncture Site pCO2 pO2 HCO3 ABG pH ABG Total CO2 ABG O2 Saturation ABG Base Excess ABG Hemoglobin ABG Carboxyhemoglobin POC ABG HHb (Measured) ABG Methemoglobin Juan Test A-a O2 Difference Respiratory Index Hgb O2 Saturation Vent Mode Mechanical Rate FiO2 Tidal Volume PEEP Sodium Potassium Chloride Carbon Dioxide Anion Gap BUN Creatinine Est GFR ( Amer) Est GFR (Non-Af Amer) POC Glucose (mg/dL) 66 104 Random Glucose Calcium Phosphorus Magnesium Total Bilirubin AST ALT Alkaline Phosphatase Total Protein Albumin Globulin Albumin/Globulin Ratio Hep Bs Antigen Hep Bs Antibody Fingerstick Blood Sugar Results: 66
--- NOTE | 2017-08-12 10:07 | CP.PCM.CON ---
History of Present Illness - History of Present Illness History of Present Illness: renal consult note ( covering for Dr Matilde Hernandez) 62 years old male with ESRD on HD TTS, CAD s/p 2 stents, hypothyroidism, CHF, htn, copd, IDDM, chronic dysphagia with vocal cord paralysis, is admitted to [facility] for trach and peg placement. Patient is intubated and cannot provide any history. Review of Systems - Review of Systems Systems not reviewed;Unavailable: Intubated Past Patient History - Infectious Disease Hx of Infectious Diseases: None - Tetanus Immunizations Tetanus Immunization: Unknown - Past Medical History & Family History Past Medical History?: Yes - Past Social History Smoking Status: Never Smoked - CARDIAC Hx Congestive Heart Failure: Yes Hx Hypercholesterolemia: Yes Hx Hypertension: Yes Hx Pacemaker: No - PULMONARY Hx Bronchitis: No Hx Chronic Obstructive Pulmonary Disease (COPD): Yes Hx Pneumonia: Yes - NEUROLOGICAL Hx Transient Ischemic Attacks (TIA): Yes - HEENT Hx HEENT Problems: Yes (WEARS RX GLASSES) Hx Cataracts: Yes (RIGHT EYE) Other/Comment: left strabismus - RENAL Date of Last Dialysis Treatment: 08/09/17 - ENDOCRINE/METABOLIC Hx Hypothyroidism: Yes - HEMATOLOGICAL/ONCOLOGICAL Hx Anemia: Yes (BLOOD TRANSFUSION-ACCIDENTAL DISLODGEMENT OF NEEDLE TO SHUNT LOST 2 L OF BL) - INTEGUMENTARY Hx Dermatological Problems: Yes Other/Comment: dry itchy skin - MUSCULOSKELETAL/RHEUMATOLOGICAL Hx Falls: Yes (in the past) - GASTROINTESTINAL Hx Gastrointestinal Disorders: Yes (ASCITES 26-15,GASTROENTERITIS) Hx Ulcer: Yes Other/Comment: CONSTIPATION, hx c dif 09/16/15 - GENITOURINARY/GYNECOLOGICAL Hx Genitourinary Disorders: Yes Other/Comment: oliguria - PSYCHIATRIC Hx Substance Use: No - SURGICAL HISTORY Hx Coronary Stent: Yes - ANESTHESIA Hx Anesthesia: Yes Hx Anesthesia Reactions: No Hx Malignant Hyperthermia: No Meds Allergies/Adverse Reactions: Allergies Allergy/AdvReac Type Severity Reaction Status Date / Time tetanus and diphtheria Allergy RASH Verified 12/21/15 11:29 toxoids [tetanus & diphtheria toxoids] - Medications Medications: Current Medications Albuterol/Ipratropium (Duoneb 3 Mg/0.5 Mg (3 Ml) Ud) 3 ml INH RQ6 [facility] Last Admin: 08/12/17 08:23 Dose: 3 ml Aspirin (Aspirin Chewable) 81 mg PO DAILY [facility] Last Admin: 08/12/17 09:16 Dose: 81 mg Carvedilol (Coreg) 6.25 mg PO BID [facility] Last Admin: 08/12/17 09:14 Dose: 6.25 mg Clopidogrel Bisulfate (Plavix) 75 mg PO DAILY [facility] Last Admin: 08/12/17 09:14 Dose: 75 mg Docusate Sodium (Colace) 100 mg PO BID PRN PRN Reason: Constipation Famotidine (Pepcid) 20 mg IVP DAILY [facility] Last Admin: 08/12/17 09:14 Dose: 20 mg Heparin Sodium (Porcine) (Heparin) 5,000 units SC Q12 [facility] Last Admin: 08/12/17 09:18 Dose: 5,000 units Propofol (Diprivan) 1,000 mg in 100 mls @ 2.22 mls/hr IV .Q24H PRN; Protocol; 5 MCG/KG/MIN PRN Reason: TITRATE PER MD ORDER Dextrose/Sodium Chloride (Dextrose 5%-0.45% Ns 500 Ml) 500 mls @ 30 mls/hr IV .[id number] ONE Stop: 08/12/17 13:54 Imipenem/Cilastatin Sodium 250 (mg/ Sodium Chloride) 100 mls @ 100 mls/hr IVPB Q8H [facility] Insulin Aspart (Novolog) 0 unit SC Q4H [facility] PRN Reason: Protocol Last Admin: 08/12/17 09:19 Dose: Not Given Rosuvastatin Calcium (Crestor) 2.5 mg PO HS [facility] Last Admin: 08/11/17 21:11 Dose: Not Given Sevelamer Carbonate (Renvela) 0.8 gm NG TIDCC [facility] Last Admin: 08/12/17 09:00 Dose: 0.8 gm Sucralfate (Carafate Oral Susp) 1 gm NG Q6H [facility] Last Admin: 08/12/17 09:14 Dose: 1 gm Physical Exam - Constitutional Appears: Non-toxic, No Acute Distress Additional comments: intubated - Head Exam Head Exam: NORMAL INSPECTION - Eye Exam Eye Exam: Normal appearance - ENT Exam ENT Exam: Mucous Membranes Moist - Respiratory Exam Respiratory Exam: NORMAL BREATHING PATTERN Additional comments: vent dep - Cardiovascular Exam Cardiovascular Exam: +S1, +S2 - GI/Abdominal Exam GI & Abdominal Exam: Soft - Extremities Exam Extremities exam: Positive for: normal inspection - Neurological Exam Additional comments: AO times 0, intubated - Skin Skin Exam: Dry Results - Vital Signs Recent Vital Signs: Last Vital Signs Temp 97.1 F L 08/12/17 04:00 Pulse 85 08/12/17 06:17 Resp 25 H 08/12/17 06:17 BP 112/31 L 08/12/17 06:17 Pulse Ox 100 08/12/17 06:17 - Labs Result Diagrams: 08/12/17 04:55 08/12/17 04:55 Labs: Laboratory Results - last 24 hr 08/11/17 08/11/17 08/11/17 10:47 10:48 11:18 WBC RBC Hgb Hct MCV MCH MCHC RDW Plt Count MPV Neut % (Auto) Lymph % (Auto) [place] % (Auto) Eos % (Auto) Baso % (Auto) Neut # (Auto) Lymph # (Auto) [place] # (Auto) Eos # (Auto) Baso # (Auto) Puncture Site pCO2 pO2 HCO3 ABG pH ABG Total CO2 ABG O2 Saturation ABG Base Excess ABG Hemoglobin ABG Carboxyhemoglobin POC ABG HHb (Measured) ABG Methemoglobin Juan Test A-a O2 Difference Respiratory Index Hgb O2 Saturation Vent Mode Mechanical Rate FiO2 Tidal Volume PEEP Sodium Potassium Chloride Carbon Dioxide Anion Gap BUN Creatinine Est GFR ( Amer) Est GFR (Non-Af Amer) POC Glucose (mg/dL) 55 L 55 L 120 H Random Glucose Calcium Phosphorus Magnesium Total Bilirubin AST ALT Alkaline Phosphatase Total Protein Albumin Globulin Albumin/Globulin Ratio Hep Bs Antigen Hep Bs Antibody 08/11/17 08/11/17 08/11/17 13:37 16:05 16:09 WBC RBC Hgb Hct MCV MCH MCHC RDW Plt Count MPV Neut % (Auto) Lymph % (Auto) [place] % (Auto) Eos % (Auto) Baso % (Auto) Neut # (Auto) Lymph # (Auto) [place] # (Auto) Eos # (Auto) Baso # (Auto) Puncture Site pCO2 pO2 HCO3 ABG pH ABG Total CO2 ABG O2 Saturation ABG Base Excess ABG Hemoglobin ABG Carboxyhemoglobin POC ABG HHb (Measured) ABG Methemoglobin Juan Test A-a O2 Difference Respiratory Index Hgb O2 Saturation Vent Mode Mechanical Rate FiO2 Tidal Volume PEEP Sodium Potassium Chloride Carbon Dioxide Anion Gap BUN Creatinine Est GFR ( Amer) Est GFR (Non-Af Amer) POC Glucose (mg/dL) 100 63 L 67 Random Glucose Calcium Phosphorus Magnesium Total Bilirubin AST ALT Alkaline Phosphatase Total Protein Albumin Globulin Albumin/Globulin Ratio Hep Bs Antigen Hep Bs Antibody 08/11/17 08/11/17 08/11/17 16:28 16:28 17:25 WBC RBC Hgb Hct MCV MCH MCHC RDW Plt Count MPV Neut % (Auto) Lymph % (Auto) [place] % (Auto) Eos % (Auto) Baso % (Auto) Neut # (Auto) Lymph # (Auto) [place] # (Auto) Eos # (Auto) Baso # (Auto) Puncture Site pCO2 pO2 HCO3 ABG pH ABG Total CO2 ABG O2 Saturation ABG Base Excess ABG Hemoglobin ABG Carboxyhemoglobin POC ABG HHb (Measured) ABG Methemoglobin Juan Test A-a O2 Difference Respiratory Index Hgb O2 Saturation Vent Mode Mechanical Rate FiO2 Tidal Volume PEEP Sodium Potassium Chloride Carbon Dioxide Anion Gap BUN Creatinine Est GFR ( Amer) Est GFR (Non-Af Amer) POC Glucose (mg/dL) 136 H Random Glucose Calcium Phosphorus Magnesium Total Bilirubin AST ALT Alkaline Phosphatase Total Protein Albumin Globulin Albumin/Globulin Ratio Hep Bs Antigen Negative Hep Bs Antibody Negative 08/11/17 08/12/17 08/12/17 20:46 01:06 04:50 WBC RBC Hgb Hct MCV MCH MCHC RDW Plt Count MPV Neut % (Auto) Lymph % (Auto) [place] % (Auto) Eos % (Auto) Baso % (Auto) Neut # (Auto) Lymph # (Auto) [place] # (Auto) Eos # (Auto) Baso # (Auto) Puncture Site R bra pCO2 49 H pO2 97 HCO3 28.7 H ABG pH 7.40 ABG Total CO2 31.9 H ABG O2 Saturation 97.9 ABG Base Excess 4.9 H ABG Hemoglobin 9.5 L ABG Carboxyhemoglobin 1.9 H POC ABG HHb (Measured) 2.0 ABG Methemoglobin 1.6 Juan Test Na A-a O2 Difference 270.0 Respiratory Index 2.8 Hgb O2 Saturation 94.4 L Vent Mode Prvc Mechanical Rate 22 FiO2 60.0 Tidal Volume 450 PEEP 5 Sodium Potassium Chloride Carbon Dioxide Anion Gap BUN Creatinine Est GFR ( Amer) Est GFR (Non-Af Amer) POC Glucose (mg/dL) 79 70 Random Glucose Calcium Phosphorus Magnesium Total Bilirubin AST ALT Alkaline Phosphatase Total Protein Albumin Globulin Albumin/Globulin Ratio Hep Bs Antigen Hep Bs Antibody 08/12/17 08/12/17 08/12/17 04:55 04:55 05:30 WBC 6.0 D RBC 2.95 L Hgb 8.8 L Hct 26.2 L MCV 88.8 D MCH 29.9 MCHC 33.7 RDW 19.3 H Plt Count 179 MPV 9.2 Neut % (Auto) 63.9 Lymph % (Auto) 13.2 L [place] % (Auto) 14.4 H Eos % (Auto) 7.6 H Baso % (Auto) 0.9 Neut # (Auto) 3.8 Lymph # (Auto) 0.8 L [place] # (Auto) 0.9 H Eos # (Auto) 0.5 Baso # (Auto) 0.1 Puncture Site pCO2 pO2 HCO3 ABG pH ABG Total CO2 ABG O2 Saturation ABG Base Excess ABG Hemoglobin ABG Carboxyhemoglobin POC ABG HHb (Measured) ABG Methemoglobin Juan Test A-a O2 Difference Respiratory Index Hgb O2 Saturation Vent Mode Mechanical Rate FiO2 Tidal Volume PEEP Sodium 133 Potassium 3.3 L Chloride 94 L Carbon Dioxide 32 H Anion Gap 10 BUN 20 Creatinine 2.2 H Est GFR ( Amer) 37 Est GFR (Non-Af Amer) 31 POC Glucose (mg/dL) 65 Random Glucose 66 L Calcium 8.5 L Phosphorus 2.5 Magnesium 1.9 Total Bilirubin 0.8 AST 28 ALT 14 L D Alkaline Phosphatase 161 H Total Protein 7.3 Albumin 2.4 L Globulin 4.8 H Albumin/Globulin Ratio 0.5 L Hep Bs Antigen Hep Bs Antibody 08/12/17 08/12/17 05:31 07:25 WBC RBC Hgb Hct MCV MCH MCHC RDW Plt Count MPV Neut % (Auto) Lymph % (Auto) [place] % (Auto) Eos % (Auto) Baso % (Auto) Neut # (Auto) Lymph # (Auto) [place] # (Auto) Eos # (Auto) Baso # (Auto) Puncture Site pCO2 pO2 HCO3 ABG pH ABG Total CO2 ABG O2 Saturation ABG Base Excess ABG Hemoglobin ABG Carboxyhemoglobin POC ABG HHb (Measured) ABG Methemoglobin Juan Test A-a O2 Difference Respiratory Index Hgb O2 Saturation Vent Mode Mechanical Rate FiO2 Tidal Volume PEEP Sodium Potassium Chloride Carbon Dioxide Anion Gap BUN Creatinine Est GFR ( Amer) Est GFR (Non-Af Amer) POC Glucose (mg/dL) 66 104 Random Glucose Calcium Phosphorus Magnesium Total Bilirubin AST ALT Alkaline Phosphatase Total Protein Albumin Globulin Albumin/Globulin Ratio Hep Bs Antigen Hep Bs Antibody Assessment & Plan - Assessment and Plan (Free Text) Plan: ESRD/anemia/chronic resp failure/sec hyperpth hd tts, today per schedule telephone consent done with daughter, agreeable to proceed lytes reviewed phos normal anemia: epo 8K to be given with hd today surgery consulted for trach and peg
--- NOTE | 2017-08-12 10:18 | RAD ---
HISTORY: Followup COMPARISON: No prior. FINDINGS: In situ, tip which lies 2 cm above sidney. Situ NGT, tip of which lies left parasagittal upper abdomen. No change right-sided PICC line. LUNGS: No active pulmonary disease. Bilateral infiltrates most confluent in the right mid lower lung field. . Bilateral effusions right larger than left PLEURA: As above. No, no pneumothorax apparent. CARDIOVASCULAR: Normal. OSSEOUS STRUCTURES: No significant abnormalities. VISUALIZED UPPER ABDOMEN: Normal. OTHER FINDINGS: None. IMPRESSION: Support lines and tubes as above. Bilateral infiltrates most confluent in the right mid lower lung field. . Bilateral effusions right larger than left
[2017-08-12] MEDS: Imipenem/Cilastatin 250 MG in Sodium Chloride 100 ML IVPB SCH ×2 (11:00→17:39)
--- NOTE | 2017-08-12 11:53 | CP.PCM.CON ---
History of Present Illness - History of Present Illness History of Present Illness: Covering Dr Chau CC: Dyspahgia, need for PEG HPI: Patient was transferred to the hospital from [facility] for Tracheostomy and PEG. [facility]AC records and [facility] records reviewed. Patient can not provide history. Patient is dependent on ventilator for redpiratory failure. He also has extensive cardiac disease, coronary stents, Dialysis, pneumonia. He does not eat. An esophagram was attempted 2 months ago and he coughed up and probably aspirated the Barium. There is an EGD report from [facility] 2 weeks ago which states a PEG was attempted but aborted due to presence of prior surgical Gastro-jejunostomy and gastric bezoar with lots of food in stomach and suspicion of gastroparesis. Patient is currently in ICU. Review of Systems - Review of Systems Systems not reviewed;Unavailable: Intubated Past Patient History - Infectious Disease Hx of Infectious Diseases: None - Tetanus Immunizations Tetanus Immunization: Unknown - Past Medical History & Family History Past Medical History?: Yes - Past Social History Smoking Status: Never Smoked - CARDIAC Hx Congestive Heart Failure: Yes Hx Hypercholesterolemia: Yes Hx Hypertension: Yes Hx Pacemaker: No - PULMONARY Hx Bronchitis: No Hx Chronic Obstructive Pulmonary Disease (COPD): Yes Hx Pneumonia: Yes - NEUROLOGICAL Hx Transient Ischemic Attacks (TIA): Yes - HEENT Hx HEENT Problems: Yes (WEARS RX GLASSES) Hx Cataracts: Yes (RIGHT EYE) Other/Comment: left strabismus - RENAL Date of Last Dialysis Treatment: 08/09/17 - ENDOCRINE/METABOLIC Hx Hypothyroidism: Yes - HEMATOLOGICAL/ONCOLOGICAL Hx Anemia: Yes (BLOOD TRANSFUSION-ACCIDENTAL DISLODGEMENT OF NEEDLE TO SHUNT LOST 2 L OF BL) - INTEGUMENTARY Hx Dermatological Problems: Yes Other/Comment: dry itchy skin - MUSCULOSKELETAL/RHEUMATOLOGICAL Hx Falls: Yes (in the past) - GASTROINTESTINAL Hx Gastrointestinal Disorders: Yes (ASCITES 10-01-15,GASTROENTERITIS) Hx Ulcer: Yes Other/Comment: CONSTIPATION, hx c dif 09/16/15 - GENITOURINARY/GYNECOLOGICAL Hx Genitourinary Disorders: Yes Other/Comment: oliguria - PSYCHIATRIC Hx Substance Use: No - SURGICAL HISTORY Hx Coronary Stent: Yes - ANESTHESIA Hx Anesthesia: Yes Hx Anesthesia Reactions: No Hx Malignant Hyperthermia: No Meds Allergies/Adverse Reactions: Allergies Allergy/AdvReac Type Severity Reaction Status Date / Time tetanus and diphtheria Allergy RASH Verified 12/21/15 11:29 toxoids [tetanus & diphtheria toxoids] - Medications Medications: Current Medications Albuterol/Ipratropium (Duoneb 3 Mg/0.5 Mg (3 Ml) Ud) 3 ml INH RQ6 [facility] Last Admin: 08/12/17 08:23 Dose: 3 ml Aspirin (Aspirin Chewable) 81 mg PO DAILY [facility] Last Admin: 08/12/17 09:16 Dose: 81 mg Carvedilol (Coreg) 6.25 mg PO BID [facility] Last Admin: 08/12/17 09:14 Dose: 6.25 mg Clopidogrel Bisulfate (Plavix) 75 mg PO DAILY [facility] Last Admin: 08/12/17 09:14 Dose: 75 mg Docusate Sodium (Colace) 100 mg PO BID PRN PRN Reason: Constipation Famotidine (Pepcid) 20 mg IVP DAILY [facility] Last Admin: 08/12/17 09:14 Dose: 20 mg Heparin Sodium (Porcine) (Heparin) 5,000 units SC Q12 [facility] Last Admin: 08/12/17 09:18 Dose: 5,000 units Propofol (Diprivan) 1,000 mg in 100 mls @ 2.22 mls/hr IV .Q24H PRN; Protocol; 5 MCG/KG/MIN PRN Reason: TITRATE PER MD ORDER Dextrose/Sodium Chloride (Dextrose 5%-0.45% Ns 500 Ml) 500 mls @ 30 mls/hr IV .[id number] ONE Stop: 08/12/17 13:54 Imipenem/Cilastatin Sodium 250 (mg/ Sodium Chloride) 100 mls @ 100 mls/hr IVPB Q8H [facility] Insulin Aspart (Novolog) 0 unit SC Q4H [facility] PRN Reason: Protocol Last Admin: 08/12/17 09:19 Dose: Not Given Rosuvastatin Calcium (Crestor) 2.5 mg PO HS [facility] Last Admin: 08/11/17 21:11 Dose: Not Given Sevelamer Carbonate (Renvela) 0.8 gm NG TIDCC [facility] Last Admin: 08/12/17 09:00 Dose: 0.8 gm Sucralfate (Carafate Oral Susp) 1 gm NG Q6H [facility] Last Admin: 08/12/17 09:14 Dose: 1 gm Physical Exam - Constitutional Appears: Chronically Ill - Head Exam Head Exam: NORMOCEPHALIC Additional comments: NG Tube ETT - Eye Exam Eye Exam: absent: Scleral icterus - Neck Exam Neck exam: Positive for: Normal Inspection - Respiratory Exam Respiratory Exam: Decreased Breath Sounds - Cardiovascular Exam Cardiovascular Exam: REGULAR RHYTHM - GI/Abdominal Exam GI & Abdominal Exam: Normal Bowel Sounds, Soft. absent: Distended, Mass, Tenderness Additional comments: Longitudinal surgical scar - Rectal Exam Rectal Exam: Deferred Results - Vital Signs Recent Vital Signs: Last Vital Signs Temp 98.3 F 08/12/17 08:00 Pulse 88 08/12/17 11:00 Resp 18 08/12/17 11:00 BP 107/49 L 08/12/17 11:00 Pulse Ox 100 08/12/17 11:00 - Labs Result Diagrams: 08/12/17 04:55 08/12/17 04:55 Labs: Laboratory Results - last 24 hr 08/11/17 08/11/17 08/11/17 13:37 16:05 16:09 WBC RBC Hgb Hct MCV MCH MCHC RDW Plt Count MPV Neut % (Auto) Lymph % (Auto) Gage % (Auto) Eos % (Auto) Baso % (Auto) Neut # (Auto) Lymph # (Auto) [place]age # (Auto) Eos # (Auto) Baso # (Auto) Puncture Site pCO2 pO2 HCO3 ABG pH ABG Total CO2 ABG O2 Saturation ABG Base Excess ABG Hemoglobin ABG Carboxyhemoglobin POC ABG HHb (Measured) ABG Methemoglobin Juan Test A-a O2 Difference Respiratory Index Hgb O2 Saturation Vent Mode Mechanical Rate FiO2 Tidal Volume PEEP Sodium Potassium Chloride Carbon Dioxide Anion Gap BUN Creatinine Est GFR ( Amer) Est GFR (Non-Af Amer) POC Glucose (mg/dL) 100 63 L 67 Random Glucose Calcium Phosphorus Magnesium Total Bilirubin AST ALT Alkaline Phosphatase Total Protein Albumin Globulin Albumin/Globulin Ratio Hep Bs Antigen Hep Bs Antibody 08/11/17 08/11/17 08/11/17 16:28 16:28 17:25 WBC RBC Hgb Hct MCV MCH MCHC RDW Plt Count MPV Neut % (Auto) Lymph % (Auto) [place] % (Auto) Eos % (Auto) Baso % (Auto) Neut # (Auto) Lymph # (Auto) [place]age # (Auto) Eos # (Auto) Baso # (Auto) Puncture Site pCO2 pO2 HCO3 ABG pH ABG Total CO2 ABG O2 Saturation ABG Base Excess ABG Hemoglobin ABG Carboxyhemoglobin POC ABG HHb (Measured) ABG Methemoglobin Juan Test A-a O2 Difference Respiratory Index Hgb O2 Saturation Vent Mode Mechanical Rate FiO2 Tidal Volume PEEP Sodium Potassium Chloride Carbon Dioxide Anion Gap BUN Creatinine Est GFR ( Amer) Est GFR (Non-Af Amer) POC Glucose (mg/dL) 136 H Random Glucose Calcium Phosphorus Magnesium Total Bilirubin AST ALT Alkaline Phosphatase Total Protein Albumin Globulin Albumin/Globulin Ratio Hep Bs Antigen Negative Hep Bs Antibody Negative 08/11/17 08/12/17 08/12/17 20:46 01:06 04:50 WBC RBC Hgb Hct MCV MCH MCHC RDW Plt Count MPV Neut % (Auto) Lymph % (Auto) [place]age % (Auto) Eos % (Auto) Baso % (Auto) Neut # (Auto) Lymph # (Auto) Gage # (Auto) Eos # (Auto) Baso # (Auto) Puncture Site R bra pCO2 49 H pO2 97 HCO3 28.7 H ABG pH 7.40 ABG Total CO2 31.9 H ABG O2 Saturation 97.9 ABG Base Excess 4.9 H ABG Hemoglobin 9.5 L ABG Carboxyhemoglobin 1.9 H POC ABG HHb (Measured) 2.0 ABG Methemoglobin 1.6 Juan Test Na A-a O2 Difference 270.0 Respiratory Index 2.8 Hgb O2 Saturation 94.4 L Vent Mode Prvc Mechanical Rate 22 FiO2 60.0 Tidal Volume 450 PEEP 5 Sodium Potassium Chloride Carbon Dioxide Anion Gap BUN Creatinine Est GFR ( Amer) Est GFR (Non-Af Amer) POC Glucose (mg/dL) 79 70 Random Glucose Calcium Phosphorus Magnesium Total Bilirubin AST ALT Alkaline Phosphatase Total Protein Albumin Globulin Albumin/Globulin Ratio Hep Bs Antigen Hep Bs Antibody 08/12/17 08/12/17 08/12/17 04:55 04:55 05:30 WBC 6.0 D RBC 2.95 L Hgb 8.8 L Hct 26.2 L MCV 88.8 D MCH 29.9 MCHC 33.7 RDW 19.3 H Plt Count 179 MPV 9.2 Neut % (Auto) 63.9 Lymph % (Auto) 13.2 L Gage % (Auto) 14.4 H Eos % (Auto) 7.6 H Baso % (Auto) 0.9 Neut # (Auto) 3.8 Lymph # (Auto) 0.8 L Gage # (Auto) 0.9 H Eos # (Auto) 0.5 Baso # (Auto) 0.1 Puncture Site pCO2 pO2 HCO3 ABG pH ABG Total CO2 ABG O2 Saturation ABG Base Excess ABG Hemoglobin ABG Carboxyhemoglobin POC ABG HHb (Measured) ABG Methemoglobin Juan Test A-a O2 Difference Respiratory Index Hgb O2 Saturation Vent Mode Mechanical Rate FiO2 Tidal Volume PEEP Sodium 133 Potassium 3.3 L Chloride 94 L Carbon Dioxide 32 H Anion Gap 10 BUN 20 Creatinine 2.2 H Est GFR ( Amer) 37 Est GFR (Non-Af Amer) 31 POC Glucose (mg/dL) 65 Random Glucose 66 L Calcium 8.5 L Phosphorus 2.5 Magnesium 1.9 Total Bilirubin 0.8 AST 28 ALT 14 L D Alkaline Phosphatase 161 H Total Protein 7.3 Albumin 2.4 L Globulin 4.8 H Albumin/Globulin Ratio 0.5 L Hep Bs Antigen Hep Bs Antibody 08/12/17 08/12/17 05:31 07:25 WBC RBC Hgb Hct MCV MCH MCHC RDW Plt Count MPV Neut % (Auto) Lymph % (Auto) Gage % (Auto) Eos % (Auto) Baso % (Auto) Neut # (Auto) Lymph # (Auto) Gage # (Auto) Eos # (Auto) Baso # (Auto) Puncture Site pCO2 pO2 HCO3 ABG pH ABG Total CO2 ABG O2 Saturation ABG Base Excess ABG Hemoglobin ABG Carboxyhemoglobin POC ABG HHb (Measured) ABG Methemoglobin Juan Test A-a O2 Difference Respiratory Index Hgb O2 Saturation Vent Mode Mechanical Rate FiO2 Tidal Volume PEEP Sodium Potassium Chloride Carbon Dioxide Anion Gap BUN Creatinine Est GFR ( Amer) Est GFR (Non-Af Amer) POC Glucose (mg/dL) 66 104 Random Glucose Calcium Phosphorus Magnesium Total Bilirubin AST ALT Alkaline Phosphatase Total Protein Albumin Globulin Albumin/Globulin Ratio Hep Bs Antigen Hep Bs Antibody Assessment & Plan (1) Dysphagia causing pulmonary aspiration with swallowing Assessment and Plan: Patient on chronic mechanical ventilator and can not eat. He also had Esophagram in June during which he coughed up barium and probably aspirated. Patient does appear to be in need of PEG. This was attempted at [facility] in Jul but technical unable to perform due to large amount of food in stomach, prior [place] 2 surgery, suspected gastroparesis Rec: Will address above-noted technical issues as needed prior to PEG Hold Plavix. Status: Acute (2) COPD (chronic obstructive pulmonary disease) Status: Acute (3) Congestive heart failure (CHF) Status: Acute (4) Renal failure Status: Acute - Date & Time Date: 08/12/17 Time: 12:04
--- NOTE | 2017-08-12 14:18 | CP.PCM.PN ---
Subjective - Date & Time of Evaluation Date of Evaluation: 08/12/17 Time of Evaluation: 14:18 Objective - Vital Signs/Intake and Output Vital Signs (last 24 hours): Temp Pulse Resp BP Pulse Ox 98.3 F 77 19 118/40 L 100 08/12/17 12:00 08/12/17 13:00 08/12/17 13:00 08/12/17 13:00 08/12/17 13:00 Intake and Output: 08/12/17 08/12/17 06:59 18:59 Intake Total 270 210 Output Total 30 Balance 240 210 - Medications Medications: Current Medications Albuterol/Ipratropium (Duoneb 3 Mg/0.5 Mg (3 Ml) Ud) [address] [facility] Last Admin: 08/12/17 13:19 Dose: 3 ml Aspirin (Aspirin Chewable) [address] [facility] Last Admin: 08/12/17 09:16 Dose: 81 mg Carvedilol (Coreg) 6.[address] [facility] Last Admin: 08/12/17 09:14 Dose: 6.25 mg Clopidogrel Bisulfate (Plavix) [address] [facility] Last Admin: 08/12/17 09:14 Dose: 75 mg Docusate Sodium (Colace) 100 mg PO BID PRN PRN Reason: Constipation Famotidine (Pepcid) [address] [facility] Last Admin: 08/12/17 09:14 Dose: 20 mg Heparin Sodium (Porcine) (Heparin) 5,[address] [facility] Last Admin: 08/12/17 09:18 Dose: 5,000 units Propofol (Diprivan) 1,000 mg in 100 mls @ 2.22 mls/hr IV .Q24H PRN; Protocol; 5 MCG/KG/MIN PRN Reason: TITRATE PER MD ORDER Imipenem/Cilastatin Sodium 250 (mg/ Sodium Chloride) 100 mls @ 100 mls/hr IVPB Q8H [facility] Last Admin: 08/12/17 11:00 Dose: 100 mls/hr Insulin Aspart (Novolog) [address] [facility] PRN Reason: Protocol Last Admin: 08/12/17 09:19 Dose: Not Given Rosuvastatin Calcium (Crestor) 2.[address] [facility] Last Admin: 08/11/17 21:11 Dose: Not Given Sevelamer Carbonate (Renvela) 0.[address] [facility] Last Admin: 08/12/17 12:01 Dose: 0.8 gm Sucralfate (Carafate Oral Susp) 1 gm NG Q6H [facility] Last Admin: 08/12/17 09:14 Dose: 1 gm - Labs Labs: 08/12/17 04:55 08/12/17 04:55 PT 13.1 SECONDS (9.7-12.2) H 08/10/17 21:21 INR 1.2 08/10/17 21:21 APTT 46 SECONDS (21-34) H 08/10/17 21:21
[2017-08-12] MEDS: Rosuvastatin Calcium 2.5 mg Tab PO SCH (22:14)
[2017-08-13] MEDS: Albuterol-Ipratrop 3 mg / 0.5 (3 ml) UD INH SCH ×4 (01:05→19:23)
[2017-08-13] MEDS: (Novolog) Insulin Aspart, Recombinant 100 u/ml 10 ml vial SC SCH ×6 (01:18→20:16)
[2017-08-13] MEDS: Imipenem/Cilastatin 250 MG in Sodium Chloride 100 ML IVPB SCH ×3 (01:54→17:38)
[2017-08-13] MEDS: Sucralfate 1 gm/10 ml Oral Susp UD NG SCH ×4 (01:55→22:13)
[2017-08-13 06:36] LABS: ARTERIAL BLOOD GAS HCO3 28.7 mmol/L (21-28); ARTERIAL BLOOD GAS O2 SAT 94.1 % (95-98); ARTERIAL BLOOD GAS PCO2 52 mm/Hg (35-45); ARTERIAL BLOOD GAS PH 7.38 (7.35-7.45); ARTERIAL BLOOD GAS PO2 61 mm/Hg (80-100); ARTERIAL BLOOD GAS TCO2 32.4 mmol/L (22-28)
[2017-08-13 06:49] LABS: BASO % 0.7 % (0.0-2.0); EOS # 0.4 K/uL (0.0-0.7); EOS % 6.7 % (0.0-4.0); LYMPH # 0.7 K/uL (1.0-4.3); LYMPH % 11.8 % (20.0-40.0); MEAN CELL VOLUME 91.5 fL (80.0-94.0); MEAN CORPUSCULAR HEMOGLOBIN 29.7 pg (27.0-31.0); MEAN CORPUSCULAR HGB CONC 32.4 g/dL (33.0-37.0); MEAN PLATELET VOLUME 9.5 fL (7.2-11.7); MONO # 0.7 K/uL (0.0-0.8); MONO % 12.5 % (0.0-10.0); NEUT % 68.3 % (50.0-75.0); NRBC % 0.1 % (0.0-2.0); RBC 2.69 Mil/uL (4.40-5.90); RED CELL DISTRIBUTION WIDTH 19.4 % (11.5-14.5); WHITE BLOOD COUNT 5.9 K/uL (4.8-10.8)
[2017-08-13 07:10] LABS: ALB/GLOB RATIO 0.5 (1.0-2.1); ALBUMIN 2.1 g/dL (3.5-5.0); CALCIUM 7.6 mg/dl (8.6-10.4); MAGNESIUM 1.6 mg/dL (1.6-2.3)
[2017-08-13] MEDS: Magnesium Sulfate 1 gm in D5W 1 GM/100 ML BAG IVPB SCH ×2 (07:45→08:36)
[2017-08-13] MEDS: Sevelamer Carb 0.8 gm/Packet NG SCH (08:38)
--- NOTE | 2017-08-13 08:40 | RAD ---
HISTORY: Intubation COMPARISON: 08/12/2017 FINDINGS: LUNGS: Extensive right-sided pulmonary opacity, unchanged. Questionable left basilar opacity. PLEURA: Small right pleural effusion. No left pleural effusion. No pneumothorax. CARDIOVASCULAR: Normal heart size. Mild congestive change. ET tube, NG tube and right PICC catheter unchanged. OSSEOUS STRUCTURES: No significant abnormalities. VISUALIZED UPPER ABDOMEN: Normal. OTHER FINDINGS: None. IMPRESSION: Diffuse right-sided pulmonary opacity. Possible pneumonia. Followup advised. Small right pleural effusion. No pneumothorax. Lines and tubes unchanged. Congestive change noted.
--- NOTE | 2017-08-13 10:38 | CP.CCUPN ---
CCU Subjective - Physician Review Events Since Last Encounter (Free Text): 08/13/17 10:38 62-year-old male with a history of end-stage renal disease on dialysis, cad, hypertension COPD diabetes admitted from [facility] for trach and peg pt had respiratory arrest during the last hospitalization and intubated still Patient has a multiple hospitalization in the past. Past medical history: End-stage renal disease on dialysis coronary artery disease, cardiac stent, congestive heart failure, hypertension, COPD and diabetes Surgical history including AV fistula. [facility] history[facility] Review of system: Patient is currently on ventilator. Vital signs reviewed No neck vein distention noted Chest bilateral wheezing and rhonchi noted CVS regular heart sound, no murmur noted Abdomen soft, nontender. 1+ pedal edema Patient is currently sedated. Chest x-ray shoveling earlier diffuse congestive heart failure, possible aspiration pneumonia culture positive for GNB Repeat chest x-ray pending. Patient's labs nonspecific Assessment and recommendation: 61-year-old male with a history of diabetes hypertension COPD, end-stage renal disease on dialysis coronary disease, stenting admitted with the shortness of breath, complicated, bradycardia, respiratory arrest status post intubation. for trach and peg today CCU Objective - Vital Signs / Intake & Output Vital Signs (Last 4 hours): Vital Signs Temp Pulse Resp BP Pulse Ox 08/13/17 09:00 68 22 122/40 L 98 08/13/17 08:00 97.2 F L 62 21 127/40 L 100 08/13/17 07:00 61 21 122/40 L 100 Intake and Output (Last 8hrs): Intake & Output 08/12/17 08/13/17 08/13/17 22:59 06:59 14:59 Intake Total 350 590 470 Balance 350 590 470 Intake: Intake, IV Amount 350 590 470 Right Distal Port 200 Right PICC 350 590 270 - Medications Active Medications: Active Medications Generic Name Dose Route Start Last Admin Trade Name Freq PRN Reason Stop Dose Admin Albuterol/Ipratropium 3 ml 08/11/17 02:00 08/13/17 07:34 Duoneb 3 Mg/0.5 Mg (3 Ml) Ud INH 3 ml RQ6 [facility] Administration Aspirin 81 mg 08/11/17 10:00 08/12/17 09:16 Aspirin Chewable PO 81 mg DAILY [facility] Administration Carvedilol 6.25 mg 08/11/17 10:00 08/13/17 09:29 Coreg PO Not Given BID [facility] Clopidogrel Bisulfate 75 mg 08/11/17 10:00 08/12/17 09:14 Plavix PO 75 mg DAILY [facility] Administration Docusate Sodium 100 mg 08/10/17 20:10 Colace PO BID PRN Constipation Famotidine 20 mg 08/11/17 10:00 08/13/17 09:35 Pepcid IVP 20 mg DAILY [facility] Administration Heparin Sodium (Porcine) 5,000 units 08/10/17 22:00 08/12/17 09:18 Heparin SC 5,000 units Q12 [facility] Administration Imipenem/Cilastatin Sodium 250 100 mls @ 100 mls/hr 08/12/17 10:00 08/13/17 09:33 mg/ Sodium Chloride IVPB 100 mls/hr Q8H [facility] Administration Potassium Chloride 10 meq in 100 mls @ 100 mls/hr 08/13/17 12:00 Potassium Chloride 10 Meq/100 Ml IVPB 08/13/17 12:59 ONCE ONE Potassium Chloride/Dextrose/Sod Cl 1,000 mls @ 100 mls/hr 08/13/17 09:00 Potassium Chl 20 Meq In D5-1/2ns IV .Q10H [facility] Insulin Aspart 0 unit 08/10/17 21:00 08/13/17 09:29 Novolog SC Not Given Q4H [facility] Protocol Rosuvastatin Calcium 2.5 mg 08/11/17 22:00 08/12/17 22:14 Crestor PO 2.5 mg HS [facility] Administration Sucralfate 1 gm 08/10/17 20:15 08/13/17 08:36 Carafate Oral Susp NG Not Given Q6H [facility] - Patient Studies Lab Studies: Microbiology Studies 08/10/17 21:00 Blood Culture - Preliminary Blood NO GROWTH AFTER 48 HOURS 08/10/17 20:30 Blood Culture - Preliminary Blood NO GROWTH AFTER 48 HOURS 08/10/17 Unknown MRSA Culture (Admit) - Final Naris MRSA NOT DETECTED 08/10/17 Unknown Gram Stain - Final Trachasp Sputum Culture - Preliminary Gram Negative Giovanni Lab Studies 08/13/17 08/13/17 08/13/17 Range/Units 07:46 06:43 06:43 WBC 5.9 (4.8-10.8) K/uL RBC 2.69 L (4.40-5.90) Mil/uL Hgb 8.0 L (12.0-18.0) g/dL Hct 24.6 L (35.0-51.0) % MCV 91.5 D (80.0-94.0) fL MCH 29.7 (27.0-31.0) pg MCHC 32.4 L (33.0-37.0) g/dL RDW 19.4 H (11.5-14.5) % Plt Count 160 (130-400) K/uL MPV 9.5 (7.2-11.7) fL Neut % (Auto) 68.3 (50.0-75.0) % Lymph % (Auto) 11.8 L (20.0-40.0) % [place] % (Auto) 12.5 H (0.0-10.0) % Eos % (Auto) 6.7 H (0.0-4.0) % Baso % (Auto) 0.7 (0.0-2.0) % Neut # (Auto) 4.0 (1.8-7.0) K/uL Lymph # (Auto) 0.7 L (1.0-4.3) K/uL [place] # (Auto) 0.7 (0.0-0.8) K/uL Eos # (Auto) 0.4 (0.0-0.7) K/uL Baso # (Auto) 0.0 (0.0-0.2) K/uL Puncture Site pCO2 (35-45) mm/Hg pO2 (80-100) mm/Hg HCO3 (21-28) mmol/L ABG pH (7.35-7.45) ABG Total CO2 (22-28) mmol/L ABG O2 Saturation (95-98) % ABG Base Excess (-2.0-3.0) mmol/L ABG Hemoglobin (11.7-17.4) g/dL ABG Carboxyhemoglobin (0.5-1.5) % POC ABG HHb (Measured) (0.0-5.0) % ABG Methemoglobin (0.0-3.0) % Juan Test A-a O2 Difference mm/Hg Respiratory Index Hgb O2 Saturation (95.0-98.0) % Vent Mode Mechanical Rate FiO2 % Tidal Volume PEEP Sodium 126 L (132-148) mmol/L Potassium 2.8 L (3.6-5.2) mmol/L Chloride 91 L (98-107) mmol/L Carbon Dioxide 26 (22-30) mmol/L Anion Gap 11 (10-20) BUN 22 H (9-20) mg/dL Creatinine 2.7 H (0.8-1.5) mg/dL Est GFR ( Amer) 29 Est GFR (Non-Af Amer) 24 POC Glucose (mg/dL) 98 (65-110) mg/dL Random Glucose 529 H* D (75-110) mg/dL Calcium 7.6 L (8.6-10.4) mg/dl Phosphorus 3.2 (2.5-4.5) mg/dL Magnesium 1.6 (1.6-2.3) mg/dL Total Bilirubin 0.6 (0.2-1.3) mg/dL AST 22 (17-59) U/L ALT 16 L (21-72) U/L Alkaline Phosphatase 125 (38-126) U/L Total Protein 6.4 (6.3-8.3) g/dL Albumin 2.1 L (3.5-5.0) g/dL Globulin 4.3 H (2.2-3.9) gm/dL Albumin/Globulin Ratio 0.5 L (1.0-2.1) 08/13/17 08/13/17 08/13/17 Range/Units 05:33 04:48 04:46 WBC (4.8-10.8) K/uL RBC (4.40-5.90) Mil/uL Hgb (12.0-18.0) g/dL Hct (35.0-51.0) % MCV (80.0-94.0) fL MCH (27.0-31.0) pg MCHC (33.0-37.0) g/dL RDW (11.5-14.5) % Plt Count (130-400) K/uL MPV (7.2-11.7) fL Neut % (Auto) (50.0-75.0) % Lymph % (Auto) (20.0-40.0) % [place] % (Auto) (0.0-10.0) % Eos % (Auto) (0.0-4.0) % Baso % (Auto) (0.0-2.0) % Neut # (Auto) (1.8-7.0) K/uL Lymph # (Auto) (1.0-4.3) K/uL [place] # (Auto) (0.0-0.8) K/uL Eos # (Auto) (0.0-0.7) K/uL Baso # (Auto) (0.0-0.2) K/uL Puncture Site R bra pCO2 52 H (35-45) mm/Hg pO2 61 L (80-100) mm/Hg HCO3 28.7 H (21-28) mmol/L ABG pH 7.38 (7.35-7.45) ABG Total CO2 32.4 H (22-28) mmol/L ABG O2 Saturation 94.1 L (95-98) % ABG Base Excess 4.9 H (-2.0-3.0) mmol/L ABG Hemoglobin 9.0 L (11.7-17.4) g/dL ABG Carboxyhemoglobin 2.3 H (0.5-1.5) % POC ABG HHb (Measured) 5.7 H (0.0-5.0) % ABG Methemoglobin 1.1 (0.0-3.0) % Juan Test Na A-a O2 Difference 195.0 mm/Hg Respiratory Index 3.2 Hgb O2 Saturation 90.9 L (95.0-98.0) % Vent Mode Prvc Mechanical Rate 22 FiO2 45.0 % Tidal Volume 450 PEEP 5 Sodium (132-148) mmol/L Potassium (3.6-5.2) mmol/L Chloride (98-107) mmol/L Carbon Dioxide (22-30) mmol/L Anion Gap (10-20) BUN (9-20) mg/dL Creatinine (0.8-1.5) mg/dL Est GFR ( Amer) Est GFR (Non-Af Amer) POC Glucose (mg/dL) 93 > 500 H* (65-110) mg/dL Random Glucose (75-110) mg/dL Calcium (8.6-10.4) mg/dl Phosphorus (2.5-4.5) mg/dL Magnesium (1.6-2.3) mg/dL Total Bilirubin (0.2-1.3) mg/dL AST (17-59) U/L ALT (21-72) U/L Alkaline Phosphatase (38-126) U/L Total Protein (6.3-8.3) g/dL Albumin (3.5-5.0) g/dL Globulin (2.2-3.9) gm/dL Albumin/Globulin Ratio (1.0-2.1) 08/13/17 08/12/17 08/12/17 Range/Units 01:02 20:34 16:39 WBC (4.8-10.8) K/uL RBC (4.40-5.90) Mil/uL Hgb (12.0-18.0) g/dL Hct (35.0-51.0) % MCV (80.0-94.0) fL MCH (27.0-31.0) pg MCHC (33.0-37.0) g/dL RDW (11.5-14.5) % Plt Count (130-400) K/uL MPV (7.2-11.7) fL Neut % (Auto) (50.0-75.0) % Lymph % (Auto) (20.0-40.0) % [place] % (Auto) (0.0-10.0) % Eos % (Auto) (0.0-4.0) % Baso % (Auto) (0.0-2.0) % Neut # (Auto) (1.8-7.0) K/uL Lymph # (Auto) (1.0-4.3) K/uL [place] # (Auto) (0.0-0.8) K/uL Eos # (Auto) (0.0-0.7) K/uL Baso # (Auto) (0.0-0.2) K/uL Puncture Site pCO2 (35-45) mm/Hg pO2 (80-100) mm/Hg HCO3 (21-28) mmol/L ABG pH (7.35-7.45) ABG Total CO2 (22-28) mmol/L ABG O2 Saturation (95-98) % ABG Base Excess (-2.0-3.0) mmol/L ABG Hemoglobin (11.7-17.4) g/dL ABG Carboxyhemoglobin (0.5-1.5) % POC ABG HHb (Measured) (0.0-5.0) % ABG Methemoglobin (0.0-3.0) % Juan Test A-a O2 Difference mm/Hg Respiratory Index Hgb O2 Saturation (95.0-98.0) % Vent Mode Mechanical Rate FiO2 % Tidal Volume PEEP Sodium (132-148) mmol/L Potassium (3.6-5.2) mmol/L Chloride (98-107) mmol/L Carbon Dioxide (22-30) mmol/L Anion Gap (10-20) BUN (9-20) mg/dL Creatinine (0.8-1.5) mg/dL Est GFR ( Amer) Est GFR (Non-Af Amer) POC Glucose (mg/dL) 87 72 79 (65-110) mg/dL Random Glucose (75-110) mg/dL Calcium (8.6-10.4) mg/dl Phosphorus (2.5-4.5) mg/dL Magnesium (1.6-2.3) mg/dL Total Bilirubin (0.2-1.3) mg/dL AST (17-59) U/L ALT (21-72) U/L Alkaline Phosphatase (38-126) U/L Total Protein (6.3-8.3) g/dL Albumin (3.5-5.0) g/dL Globulin (2.2-3.9) gm/dL Albumin/Globulin Ratio (1.0-2.1) 08/12/17 08/12/17 Range/Units 11:53 11:51 WBC (4.8-10.8) K/uL RBC (4.40-5.90) Mil/uL Hgb (12.0-18.0) g/dL Hct (35.0-51.0) % MCV (80.0-94.0) fL MCH (27.0-31.0) pg MCHC (33.0-37.0) g/dL RDW (11.5-14.5) % Plt Count (130-400) K/uL MPV (7.2-11.7) fL Neut % (Auto) (50.0-75.0) % Lymph % (Auto) (20.0-40.0) % [place] % (Auto) (0.0-10.0) % Eos % (Auto) (0.0-4.0) % Baso % (Auto) (0.0-2.0) % Neut # (Auto) (1.8-7.0) K/uL Lymph # (Auto) (1.0-4.3) K/uL [place] # (Auto) (0.0-0.8) K/uL Eos # (Auto) (0.0-0.7) K/uL Baso # (Auto) (0.0-0.2) K/uL Puncture Site pCO2 (35-45) mm/Hg pO2 (80-100) mm/Hg HCO3 (21-28) mmol/L ABG pH (7.35-7.45) ABG Total CO2 (22-28) mmol/L ABG O2 Saturation (95-98) % ABG Base Excess (-2.0-3.0) mmol/L ABG Hemoglobin (11.7-17.4) g/dL ABG Carboxyhemoglobin (0.5-1.5) % POC ABG HHb (Measured) (0.0-5.0) % ABG Methemoglobin (0.0-3.0) % Juan Test A-a O2 Difference mm/Hg Respiratory Index Hgb O2 Saturation (95.0-98.0) % Vent Mode Mechanical Rate FiO2 % Tidal Volume PEEP Sodium (132-148) mmol/L Potassium (3.6-5.2) mmol/L Chloride (98-107) mmol/L Carbon Dioxide (22-30) mmol/L Anion Gap (10-20) BUN (9-20) mg/dL Creatinine (0.8-1.5) mg/dL Est GFR ( Amer) Est GFR (Non-Af Amer) POC Glucose (mg/dL) 72 67 (65-110) mg/dL Random Glucose (75-110) mg/dL Calcium (8.6-10.4) mg/dl Phosphorus (2.5-4.5) mg/dL Magnesium (1.6-2.3) mg/dL Total Bilirubin (0.2-1.3) mg/dL AST (17-59) U/L ALT (21-72) U/L Alkaline Phosphatase (38-126) U/L Total Protein (6.3-8.3) g/dL Albumin (3.5-5.0) g/dL Globulin (2.2-3.9) gm/dL Albumin/Globulin Ratio (1.0-2.1) Laboratory Results - last 24 hr 08/12/17 08/12/17 08/12/17 11:51 11:53 16:39 WBC RBC Hgb Hct MCV MCH MCHC RDW Plt Count MPV Neut % (Auto) Lymph % (Auto) [place] % (Auto) Eos % (Auto) Baso % (Auto) Neut # (Auto) Lymph # (Auto) [place] # (Auto) Eos # (Auto) Baso # (Auto) Puncture Site pCO2 pO2 HCO3 ABG pH ABG Total CO2 ABG O2 Saturation ABG Base Excess ABG Hemoglobin ABG Carboxyhemoglobin POC ABG HHb (Measured) ABG Methemoglobin Juan Test A-a O2 Difference Respiratory Index Hgb O2 Saturation Vent Mode Mechanical Rate FiO2 Tidal Volume PEEP Sodium Potassium Chloride Carbon Dioxide Anion Gap BUN Creatinine Est GFR ( Amer) Est GFR (Non-Af Amer) POC Glucose (mg/dL) 67 72 79 Random Glucose Calcium Phosphorus Magnesium Total Bilirubin AST ALT Alkaline Phosphatase Total Protein Albumin Globulin Albumin/Globulin Ratio 08/12/17 08/13/17 08/13/17 20:34 01:02 04:46 WBC RBC Hgb Hct MCV MCH MCHC RDW Plt Count MPV Neut % (Auto) Lymph % (Auto) [place] % (Auto) Eos % (Auto) Baso % (Auto) Neut # (Auto) Lymph # (Auto) [place] # (Auto) Eos # (Auto) Baso # (Auto) Puncture Site pCO2 pO2 HCO3 ABG pH ABG Total CO2 ABG O2 Saturation ABG Base Excess ABG Hemoglobin ABG Carboxyhemoglobin POC ABG HHb (Measured) ABG Methemoglobin Juan Test A-a O2 Difference Respiratory Index Hgb O2 Saturation Vent Mode Mechanical Rate FiO2 Tidal Volume PEEP Sodium Potassium Chloride Carbon Dioxide Anion Gap BUN Creatinine Est GFR ( Amer) Est GFR (Non-Af Amer) POC Glucose (mg/dL) 72 87 > 500 H* Random Glucose Calcium Phosphorus Magnesium Total Bilirubin AST ALT Alkaline Phosphatase Total Protein Albumin Globulin Albumin/Globulin Ratio 08/13/17 08/13/1708/13/18 04:48 05:33 06:43 WBC 5.9 RBC 2.69 L Hgb 8.0 L Hct 24.6 L MCV 91.5 D MCH 29.7 MCHC 32.4 L RDW 19.4 H Plt Count 160 MPV 9.5 Neut % (Auto) 68.3 Lymph % (Auto) 11.8 L [place] % (Auto) 12.5 H Eos % (Auto) 6.7 H Baso % (Auto) 0.7 Neut # (Auto) 4.0 Lymph # (Auto) 0.7 L [place] # (Auto) 0.7 Eos # (Auto) 0.4 Baso # (Auto) 0.0 Puncture Site R bra pCO2 52 H pO2 61 L HCO3 28.7 H ABG pH 7.38 ABG Total CO2 32.4 H ABG O2 Saturation 94.1 L ABG Base Excess 4.9 H ABG Hemoglobin 9.0 L ABG Carboxyhemoglobin 2.3 H POC ABG HHb (Measured) 5.7 H ABG Methemoglobin 1.1 Juan Test Na A-a O2 Difference 195.0 Respiratory Index 3.2 Hgb O2 Saturation 90.9 L Vent Mode Prvc Mechanical Rate 22 FiO2 45.0 Tidal Volume 450 PEEP 5 Sodium Potassium Chloride Carbon Dioxide Anion Gap BUN Creatinine Est GFR ( Amer) Est GFR (Non-Af Amer) POC Glucose (mg/dL) 93 Random Glucose Calcium Phosphorus Magnesium Total Bilirubin AST ALT Alkaline Phosphatase Total Protein Albumin Globulin Albumin/Globulin Ratio 08/13/17 08/13/17 06:43 07:46 WBC RBC Hgb Hct MCV MCH MCHC RDW Plt Count MPV Neut % (Auto) Lymph % (Auto) [place] % (Auto) Eos % (Auto) Baso % (Auto) Neut # (Auto) Lymph # (Auto) [place] # (Auto) Eos # (Auto) Baso # (Auto) Puncture Site pCO2 pO2 HCO3 ABG pH ABG Total CO2 ABG O2 Saturation ABG Base Excess ABG Hemoglobin ABG Carboxyhemoglobin POC ABG HHb (Measured) ABG Methemoglobin Juan Test A-a O2 Difference Respiratory Index Hgb O2 Saturation Vent Mode Mechanical Rate FiO2 Tidal Volume PEEP Sodium 126 L Potassium 2.8 L Chloride 91 L Carbon Dioxide 26 Anion Gap 11 BUN 22 H Creatinine 2.7 H Est GFR ( Amer) 29 Est GFR (Non-Af Amer) 24 POC Glucose (mg/dL) 98 Random Glucose 529 H* D Calcium 7.6 L Phosphorus 3.2 Magnesium 1.6 Total Bilirubin 0.6 AST 22 ALT 16 L Alkaline Phosphatase 125 Total Protein 6.4 Albumin 2.1 L Globulin 4.3 H Albumin/Globulin Ratio 0.5 L Fingerstick Blood Sugar Results: 98
--- NOTE | 2017-08-13 11:22 | CP.PCM.PN ---
Subjective - Date & Time of Evaluation Date of Evaluation: 08/13/17 Time of Evaluation: 10:15 - Subjective Subjective: RENAL FOLLOW UP seen and examined in icu no events o/n o: gen: intubated and sedated sclera: anicteric op: et tube neck: supple cv+ 1 +s2 lungs dec bs at bases, mechanical bs abd; soft ext: trace edema neuro: sedated psych: sedated skin: no rash IMP:ESRD/anemia/chronic resp failure/sec hyperpth/hypokalemia/hyponatremia HD tomorrow, TTS k is low - IV k ordered this am - will order repeat K at 2 pm - as hyperglycemia treated likely to need more k, replete further as necessary phos normal epo w/ hd f/u surg: trach and peg na should improve w/ improvement in sugars and K repletion Objective - Vital Signs/Intake and Output Vital Signs (last 24 hours): Temp Pulse Resp BP Pulse Ox 97.2 F L 68 22 122/40 L 98 08/13/17 08:00 08/13/17 09:00 08/13/17 09:00 08/13/17 09:00 08/13/17 09:00 Intake and Output: 08/13/17 08/13/17 06:59 18:59 Intake Total 750 470 Balance 750 470 - Medications Medications: Current Medications Albuterol/Ipratropium (Duoneb 3 Mg/0.5 Mg (3 Ml) Ud) 3 ml INH RQ6 [facility] Last Admin: 08/13/17 07:34 Dose: 3 ml Aspirin (Aspirin Chewable) 81 mg PO DAILY [facility] Last Admin: 08/12/17 09:16 Dose: 81 mg Carvedilol (Coreg) 6.25 mg PO BID [facility] Last Admin: 08/13/17 09:29 Dose: Not Given Clopidogrel Bisulfate (Plavix) 75 mg PO DAILY [facility] Last Admin: 08/12/17 09:14 Dose: 75 mg Docusate Sodium (Colace) 100 mg PO BID PRN PRN Reason: Constipation Famotidine (Pepcid) 20 mg IVP DAILY [facility] Last Admin: 08/13/17 09:35 Dose: 20 mg Heparin Sodium (Porcine) (Heparin) 5,000 units SC Q12 [facility] Last Admin: 08/12/17 09:18 Dose: 5,000 units Imipenem/Cilastatin Sodium 250 (mg/ Sodium Chloride) 100 mls @ 100 mls/hr IVPB Q8H [facility] Last Admin: 08/13/17 09:33 Dose: 100 mls/hr Potassium Chloride (Potassium Chloride 10 Meq/100 Ml) 10 meq in 100 mls @ 100 mls/hr IVPB ONCE ONE Stop: 08/13/17 12:59 Potassium Chloride/Dextrose/Sod Cl (Potassium Chl 20 Meq In D5-1/2ns) 1,000 mls @ 100 mls/hr IV .Q10H [facility] Insulin Aspart (Novolog) 0 unit SC Q4H [facility] PRN Reason: Protocol Last Admin: 08/13/17 09:29 Dose: Not Given Rosuvastatin Calcium (Crestor) 2.5 mg PO HS [facility] Last Admin: 08/12/17 22:14 Dose: 2.5 mg Sucralfate (Carafate Oral Susp) 1 gm NG Q6H [facility] Last Admin: 08/13/17 08:36 Dose: Not Given - Labs Labs: 08/13/17 06:43 08/13/17 06:43 PT 13.1 SECONDS (9.7-12.2) H 08/10/17 21:21 INR 1.2 08/10/17 21:21 APTT 46 SECONDS (21-34) H 08/10/17 21:21
[2017-08-13] MEDS: Potassium Ch 20mEq in D5-1/2NS 1,000 ML IV SCH (11:30)
--- NOTE | 2017-08-13 12:42 | CP.PCM.PN ---
Subjective - Date & Time of Evaluation Date of Evaluation: 08/13/17 Time of Evaluation: 07:30 - Subjective Subjective: General surgery progress note for Dr. Arabella Dumont, PGY-1 Pt S & E at bedside this AM. Pt intubated, sedated. Pt w/low blood sugars overnight as per nursing. No other acute events. Mechanical vent- PRVC, RR 22, TV 450, FiO2 45% Objective - Vital Signs/Intake and Output Vital Signs (last 24 hours): Temp Pulse Resp BP Pulse Ox 98.6 F 92 H 21 106/23 L 100 08/13/17 12:00 08/13/17 12:00 08/13/17 12:00 08/13/17 12:00 08/13/17 12:00 Intake and Output: 08/13/17 08/13/17 06:59 18:59 Intake Total 750 770 Balance 750 770 - Medications Medications: Current Medications Albuterol/Ipratropium (Duoneb 3 Mg/0.5 Mg (3 Ml) Ud) 3 ml INH RQ6 [facility] Last Admin: 08/13/17 07:34 Dose: 3 ml Aspirin (Aspirin Chewable) 81 mg PO DAILY [facility] Last Admin: 08/12/17 09:16 Dose: 81 mg Carvedilol (Coreg) 6.25 mg PO BID [facility] Last Admin: 08/13/17 11:51 Dose: Not Given Clopidogrel Bisulfate (Plavix) 75 mg PO DAILY [facility] Last Admin: 08/12/17 09:14 Dose: 75 mg Docusate Sodium (Colace) 100 mg PO BID PRN PRN Reason: Constipation Famotidine (Pepcid) 20 mg IVP DAILY [facility] Last Admin: 08/13/17 09:35 Dose: 20 mg Heparin Sodium (Porcine) (Heparin) 5,000 units SC Q12 [facility] Last Admin: 08/12/17 09:18 Dose: 5,000 units Imipenem/Cilastatin Sodium 250 (mg/ Sodium Chloride) 100 mls @ 100 mls/hr IVPB Q8H [facility] Last Admin: 08/13/17 09:33 Dose: 100 mls/hr Potassium Chloride (Potassium Chloride 10 Meq/100 Ml) 10 meq in 100 mls @ 100 mls/hr IVPB ONCE ONE Stop: 08/13/17 12:59 Last Admin: 08/13/17 11:49 Dose: 100 mls/hr Potassium Chloride/Dextrose/Sod Cl (Potassium Chl 20 Meq In D5-1/2ns) 1,000 mls @ 100 mls/hr IV .Q10H [facility] Last Admin: 08/13/17 11:30 Dose: 100 mls/hr Insulin Aspart (Novolog) 0 unit SC Q4H [facility] PRN Reason: Protocol Last Admin: 08/13/17 09:29 Dose: Not Given Rosuvastatin Calcium (Crestor) 2.5 mg PO HS [facility] Last Admin: 08/12/17 22:14 Dose: 2.5 mg Sucralfate (Carafate Oral Susp) 1 gm NG Q6H [facility] Last Admin: 08/13/17 08:36 Dose: Not Given Vitamin A (Vitamin A & D Oint Ud Foilpak) 4 ea TOP BID [facility] - Labs Labs: 08/13/17 06:43 08/13/17 06:43 PT 13.1 SECONDS (9.7-12.2) H 08/10/17 21:21 INR 1.2 08/10/17 21:21 APTT 46 SECONDS (21-34) H 08/10/17 21:21 - Constitutional Appears: Non-toxic, In Acute Distress - Head Exam Head Exam: ATRAUMATIC, NORMAL INSPECTION, NORMOCEPHALIC - ENT Exam ENT Exam: Mucous Membranes Dry Additional comments: ET tube in place, NGT in place - Respiratory Exam Respiratory Exam: Rhonchi, NORMAL BREATHING PATTERN (on mechanical vent) - Cardiovascular Exam Cardiovascular Exam: REGULAR RHYTHM, +S1, +S2 - GI/Abdominal Exam GI & Abdominal Exam: Soft. absent: Distended, Firm, Guarding, Tenderness Additional comments: Well healed midline and paramedian incisions - Extremities Exam Extremities Exam: Pedal Edema (bilateral) - Neurological Exam Neurological Exam: absent: Alert, Awake, CN II-XII Intact, Oriented x3 Additional comments: intubated, sedated, not arousable to verba stimuli, arousable to tactile stimuli - Psychiatric Exam Additional comments: unassessable - Skin Skin Exam: Dry, Intact, Normal Color, Warm Assessment and Plan - Assessment and Plan (Free Text) Assessment: 62M w/respiratory failure requiring prolonged mechanical ventilation Plan: Pt was for trach today- cancelled Needs to be medically optimized prior to trach Correct hypokalemia Plan for OR Sunday Consent in chart DW attending Julia, PGY-1
--- NOTE | 2017-08-13 13:33 | CP.PCM.PN ---
Subjective - Date & Time of Evaluation Date of Evaluation: 08/13/17 Time of Evaluation: 13:32 - Subjective Subjective: trach postponed at per discussion with anesthesia Dr jessica kearns concern for K of 2.7 will reschedule for sunday Objective - Vital Signs/Intake and Output Vital Signs (last 24 hours): Temp Pulse Resp BP Pulse Ox 98.6 F 92 H 21 106/23 L 100 08/13/17 12:00 08/13/17 12:00 08/13/17 12:00 08/13/17 12:00 08/13/17 12:00 Intake and Output: 08/13/17 08/13/17 06:59 18:59 Intake Total 750 770 Balance 750 770 - Medications Medications: Current Medications Albuterol/Ipratropium (Duoneb 3 Mg/0.5 Mg (3 Ml) Ud) 3 ml INH RQ6 REPLACED BY [facility] Last Admin: 08/13/17 07:34 Dose: 3 ml Aspirin (Aspirin Chewable) 81 mg PO DAILY REPLACED BY [facility] Last Admin: 08/12/17 09:16 Dose: 81 mg Carvedilol (Coreg) 6.25 mg PO BID REPLACED BY [facility] Last Admin: 08/13/17 11:51 Dose: Not Given Clopidogrel Bisulfate (Plavix) 75 mg PO DAILY REPLACED BY [facility] Last Admin: 08/12/17 09:14 Dose: 75 mg Docusate Sodium (Colace) 100 mg PO BID PRN PRN Reason: Constipation Famotidine (Pepcid) 20 mg IVP DAILY REPLACED BY [facility] Last Admin: 08/13/17 09:35 Dose: 20 mg Heparin Sodium (Porcine) (Heparin) 5,000 units SC Q12 REPLACED BY [facility] Last Admin: 08/12/17 09:18 Dose: 5,000 units Imipenem/Cilastatin Sodium 250 (mg/ Sodium Chloride) 100 mls @ 100 mls/hr IVPB Q8H REPLACED BY [facility] Last Admin: 08/13/17 09:33 Dose: 100 mls/hr Potassium Chloride/Dextrose/Sod Cl (Potassium Chl 20 Meq In D5-1/2ns) 1,000 mls @ 100 mls/hr IV .Q10H REPLACED BY [facility] Last Admin: 08/13/17 11:30 Dose: 100 mls/hr Insulin Aspart (Novolog) 0 unit SC Q4H [facility] PRN Reason: Protocol Last Admin: 08/13/17 09:29 Dose: Not Given Rosuvastatin Calcium (Crestor) 2.5 mg PO HS [facility] Last Admin: 08/12/17 22:14 Dose: 2.5 mg Sucralfate (Carafate Oral Susp) 1 gm NG Q6H [facility] Last Admin: 08/13/17 08:36 Dose: Not Given Vitamin A (Vitamin A & D Oint Ud Foilpak) 4 ea TOP BID [facility] - Labs Labs: 08/13/17 06:43 08/13/17 06:43 PT 13.1 SECONDS (9.7-12.2) H 08/10/17 21:21 INR 1.2 08/10/17 21:21 APTT 46 SECONDS (21-34) H 08/10/17 21:21
[2017-08-13 14:48] LABS: CALCIUM 8.6 mg/dl (8.6-10.4)
[2017-08-13] MEDS: Vitamins A & D Oint UD Foilpak TOP SCH (17:39)
--- NOTE | 2017-08-13 19:36 | CP.PCM.PN ---
Subjective - Date & Time of Evaluation Date of Evaluation: 08/13/17 Time of Evaluation: 11:00 - Subjective Subjective: clinically same Objective - Vital Signs/Intake and Output Vital Signs (last 24 hours): Temp Pulse Resp BP Pulse Ox 99.4 F 76 22 91/26 L 100 08/13/17 16:00 08/13/17 19:00 08/13/17 19:00 08/13/17 19:00 08/13/17 19:00 Intake and Output: 08/13/17 08/14/17 18:59 06:59 Intake Total 1470 100 Balance 1470 100 - Medications Medications: Current Medications Albuterol/Ipratropium (Duoneb 3 Mg/0.5 Mg (3 Ml) Ud) 3 ml INH RQ6 [facility] Last Admin: 08/13/17 19:23 Dose: 3 ml Aspirin (Aspirin Chewable) 81 mg PO DAILY [facility] Last Admin: 08/12/17 09:16 Dose: 81 mg Carvedilol (Coreg) 6.25 mg PO BID [facility] Last Admin: 08/13/17 17:37 Dose: Not Given Clopidogrel Bisulfate (Plavix) 75 mg PO DAILY [facility] Last Admin: 08/12/17 09:14 Dose: 75 mg Docusate Sodium (Colace) 100 mg PO BID PRN PRN Reason: Constipation Famotidine (Pepcid) 20 mg IVP DAILY [facility] Last Admin: 08/13/17 09:35 Dose: 20 mg Heparin Sodium (Porcine) (Heparin) 5,000 units SC Q12 [facility] Last Admin: 08/12/17 09:18 Dose: 5,000 units Imipenem/Cilastatin Sodium 250 (mg/ Sodium Chloride) 100 mls @ 100 mls/hr IVPB Q8H [facility] Last Admin: 08/13/17 17:38 Dose: 100 mls/hr Insulin Aspart (Novolog) 0 unit SC Q4H [facility] PRN Reason: Protocol Last Admin: 08/13/17 17:37 Dose: Not Given Rosuvastatin Calcium (Crestor) 2.5 mg PO HS [facility] Last Admin: 08/12/17 22:14 Dose: 2.5 mg Sucralfate (Carafate Oral Susp) 1 gm NG Q6H [facility] Last Admin: 08/13/17 15:15 Dose: 1 gm Vitamin A (Vitamin A & D Oint Ud Foilpak) 4 ea TOP BID [facility] Last Admin: 08/13/17 17:39 Dose: 4 ea - Labs Labs: 08/13/17 06:43 08/13/17 14:32 PT 13.1 SECONDS (9.7-12.2) H 08/10/17 21:21 INR 1.2 08/10/17 21:21 APTT 46 SECONDS (21-34) H 08/10/17 21:21 - Constitutional Appears: Well - Head Exam Head Exam: ATRAUMATIC, NORMAL INSPECTION, NORMOCEPHALIC - Eye Exam Eye Exam: EOMI, Normal appearance, PERRL Pupil Exam: NORMAL ACCOMODATION, PERRL - ENT Exam ENT Exam: Mucous Membranes Moist, Normal Exam - Neck Exam Neck Exam: Full ROM, Normal Inspection. absent: Lymphadenopathy - Respiratory Exam Respiratory Exam: Decreased Breath Sounds - Cardiovascular Exam Cardiovascular Exam: REGULAR RHYTHM, +S1, +S2 - GI/Abdominal Exam GI & Abdominal Exam: Soft, Diminished Bowel Sounds - Rectal Exam Rectal Exam: Deferred
--- NOTE | 2017-08-13 20:11 | CARD ---
APPROVED REPORT EXAM: Two-dimensional and M-mode echocardiogram with Doppler and color Doppler. Other Information Quality : GoodRhythm : INDICATION Dyspnea Congestive Heart Failure COPD LIMITED LV FUNCTION, FEVER RISK FACTORS Hypertension 2D DIMENSIONS IVSd1.1 (0.7-1.1cm)LVDd4.7 (3.9-5.9cm) PWd1.3 (0.7-1.1cm)LVDs2.6 (2.5-4.0cm) FS (%) 45.6 %LVEF (%)77.0 (>50%) Mitral Valve E/A ratio0.0 TDI E/Lateral E'0.0E/Medial E'0.0 Tricuspid Valve TR Peak [id number]/sTR Peak Gr.49mmHg LEFT VENTRICLE The left ventricle is normal size. There is normal left ventricular wall thickness. The left ventricular function is normal. The left ventricular ejection fraction is within the normal range. No regional wall motion abnormalities noted. The left ventricular diastolic function is normal. No left ventricle thrombus noted on this study. There is no ventricular septal defect visualized. There is no left ventricular aneurysm. There is no mass noted in the left ventricle. RIGHT VENTRICLE The right ventricle is normal size. There is normal right ventricular wall thickness. The right ventricular systolic function is normal. ATRIA The left atrium size is normal. The right atrium size is normal. The interatrial septum is intact with no evidence for an atrial septal defect. AORTIC VALVE The aortic valve is normal in structure and function. No aortic regurgitation is present. There is no aortic valvular stenosis. There is no aortic valvular vegetation. MITRAL VALVE The mitral valve is normal in structure and function. There is no evidence of mitral valve prolapse. There is no mitral valve stenosis. There is no mitral valve regurgitation noted. TRICUSPID VALVE The tricuspid valve is normal in structure and function. There is mild to moderate tricuspid regurgitation. Right ventricular systolic pressure is estimated at 40-50 mmHg. There is no tricuspid valve prolapse or vegetation. There is no tricuspid valve stenosis. PULMONIC VALVE The pulmonary valve is normal in structure and function. There is no pulmonic valvular regurgitation. There is no pulmonic valvular stenosis. GREAT VESSELS The aortic root is normal in size. The ascending aorta is normal in size. The pulmonary artery is normal. The IVC is normal in size and collapses >50% with inspiration. PERICARDIAL EFFUSION The pericardium appears normal. There is no pleural effusion. <Conclusion> The left ventricular function is normal. The left ventricular ejection fraction is within the normal range. No regional wall motion abnormalities noted. There is mild to moderate tricuspid regurgitation. Right ventricular systolic pressure is estimated at 40-50 mmHg.
--- NOTE | 2017-08-13 20:58 | CP.PCM.PN ---
Subjective - Date & Time of Evaluation Date of Evaluation: 08/13/17 Time of Evaluation: 20:57 Objective - Vital Signs/Intake and Output Vital Signs (last 24 hours): Temp Pulse Resp BP Pulse Ox 99.4 F 76 22 91/26 L 100 08/13/17 16:00 08/13/17 19:00 08/13/17 19:00 08/13/17 19:00 08/13/17 19:00 Intake and Output: 08/13/17 08/14/17 18:59 06:59 Intake Total 1470 100 Balance 1470 100 - Medications Medications: Current Medications Albuterol/Ipratropium (Duoneb 3 Mg/0.5 Mg (3 Ml) Ud) 3 ml INH RQ6 [facility] Last Admin: 08/13/17 19:23 Dose: 3 ml Aspirin (Aspirin Chewable) 81 mg PO DAILY [facility] Last Admin: 08/12/17 09:16 Dose: 81 mg Carvedilol (Coreg) 6.25 mg PO BID [facility] Last Admin: 08/13/17 17:37 Dose: Not Given Clopidogrel Bisulfate (Plavix) 75 mg PO DAILY [facility] Last Admin: 08/12/17 09:14 Dose: 75 mg Docusate Sodium (Colace) 100 mg PO BID PRN PRN Reason: Constipation Famotidine (Pepcid) 20 mg IVP DAILY [facility] Last Admin: 08/13/17 09:35 Dose: 20 mg Heparin Sodium (Porcine) (Heparin) 5,000 units SC Q12 [facility] Last Admin: 08/12/17 09:18 Dose: 5,000 units Imipenem/Cilastatin Sodium 250 (mg/ Sodium Chloride) 100 mls @ 100 mls/hr IVPB Q8H [facility] Last Admin: 08/13/17 17:38 Dose: 100 mls/hr Insulin Aspart (Novolog) 0 unit SC Q4H [facility] PRN Reason: Protocol Last Admin: 08/13/17 20:16 Dose: Not Given Rosuvastatin Calcium (Crestor) 2.5 mg PO HS [facility] Last Admin: 08/12/17 22:14 Dose: 2.5 mg Sucralfate (Carafate Oral Susp) 1 gm NG Q6H [facility] Last Admin: 08/13/17 15:15 Dose: 1 gm Vitamin A (Vitamin A & D Oint Ud Foilpak) 4 ea TOP BID [facility] Last Admin: 08/13/17 17:39 Dose: 4 ea - Labs Labs: 08/13/17 06:43 08/13/17 14:32 PT 13.1 SECONDS (9.7-12.2) H 08/10/17 21:21 INR 1.2 08/10/17 21:21 APTT 46 SECONDS (21-34) H 08/10/17 21:21
[2017-08-13] MEDS: Rosuvastatin Calcium 2.5 mg Tab PO SCH (22:13)
[2017-08-14] MEDS: Albuterol-Ipratrop 3 mg / 0.5 (3 ml) UD INH SCH ×4 (02:10→19:29)
[2017-08-14] MEDS: Imipenem/Cilastatin 250 MG in Sodium Chloride 100 ML IVPB SCH ×3 (02:19→17:47)
[2017-08-14] MEDS: Sucralfate 1 gm/10 ml Oral Susp UD NG SCH ×4 (02:19→22:57)
[2017-08-14] MEDS: (Novolog) Insulin Aspart, Recombinant 100 u/ml 10 ml vial SC SCH ×6 (02:20→21:00)
[2017-08-14] MEDS: Potassium Ch 20mEq in D5-1/2NS 1,000 ML IV SCH (02:21)
[2017-08-14 05:26] LABS: ABG ALLEN TEST POS; ARTERIAL BLOOD GAS HCO3 27.3 mmol/L (21-28); ARTERIAL BLOOD GAS HEMOGLOBIN 8.4 g/dL (11.7-17.4); ARTERIAL BLOOD GAS O2 SAT 97.9 % (95-98); ARTERIAL BLOOD GAS PCO2 37 mm/Hg (35-45); ARTERIAL BLOOD GAS PH 7.47 (7.35-7.45); ARTERIAL BLOOD GAS PO2 82 mm/Hg (80-100)
[2017-08-14 06:33] LABS: BASO % 0.7 % (0.0-2.0); EOS # 0.3 K/uL (0.0-0.7); EOS % 5.7 % (0.0-4.0); HEMOGLOBIN 7.9 g/dL (12.0-18.0); LYMPH # 0.6 K/uL (1.0-4.3); LYMPH % 11.6 % (20.0-40.0); MEAN CELL VOLUME 88.8 fL (80.0-94.0); MEAN CORPUSCULAR HEMOGLOBIN 30.4 pg (27.0-31.0); MEAN CORPUSCULAR HGB CONC 34.2 g/dL (33.0-37.0); MEAN PLATELET VOLUME 9.2 fL (7.2-11.7); MONO # 0.8 K/uL (0.0-0.8); MONO % 14.1 % (0.0-10.0); NEUT # 3.8 K/uL (1.8-7.0); NEUT % 67.9 % (50.0-75.0); RBC 2.59 Mil/uL (4.40-5.90); RED CELL DISTRIBUTION WIDTH 19.6 % (11.5-14.5); WHITE BLOOD COUNT 5.6 K/uL (4.8-10.8)
[2017-08-14 06:46] LABS: MAGNESIUM 2.1 mg/dL (1.6-2.3)
--- NOTE | 2017-08-14 08:44 | RAD ---
Chest x-ray single frontal view History: Intubation. Comparison: 08/13/2017 Findings: Lines and tubes in stable position. Biapical pleural thickening with upper lobe granulomatous changes. Prominent diffuse increased interstitial lung markings. Prominent consolidative changes in the right mid to lower lung zone as well as at the left lung base. Small to moderate right loculated and small left loculated pleural effusion. Cardiomegaly. Degenerative changes in the spine and shoulders. Impression: Lines and tubes in stable position. Biapical pleural thickening with upper lobe granulomatous changes. Prominent diffuse increased interstitial lung markings. Prominent consolidative changes in the right mid to lower lung zone as well as at the left lung base. Small to moderate right loculated and small left loculated pleural effusion. Cardiomegaly.
[2017-08-14] MEDS: Vitamins A & D Oint UD Foilpak TOP SCH ×2 (10:00→17:54)
--- NOTE | 2017-08-14 11:20 | CP.CCUPN ---
<Dino Rosales - Last Filed: 08/14/17 11:48> CCU Subjective - Physician Review Subjective (Free Text): 08/14/17 11:13 patient seen and examined at bedside intubated dialysis Trach/Jasvirube sunday CCU Objective - Vital Signs / Intake & Output Vital Signs (Last 4 hours): Vital Signs Temp Pulse Pulse Resp BP BP Pulse Ox 08/14/17 11:06 96 F L 92 H 92 H 25 H 129/27 L 129/27 L 08/14/17 11:00 93 H 26 H 108/40 L 100 08/14/17 10:57 93 H 23 108/29 L 100 08/14/17 10:51 97.4 F L 94 H 94 H 25 H 101/25 L 101/25 L 100 08/14/17 10:42 96 H 29 H 107/25 L 100 08/14/17 10:37 98 H 23 115/20 L 100 08/14/17 10:36 96.7 F L 97 H 97 H 28 H 115/20 L 115/20 L 08/14/17 10:30 120/27 L 08/14/17 10:27 98 H 22 120/27 L 100 08/14/17 10:15 123/18 L 08/14/17 10:12 95 H 26 H 123/18 L 100 08/14/17 10:00 92 H 19 115/40 L 115/22 L 100 08/14/17 09:57 91 H 22 115/22 L 100 08/14/17 09:45 99/18 L 08/14/17 09:42 86 28 H 100 08/14/17 09:30 103/16 L 08/14/17 09:15 98.7 F 85 22 109/19 L 100 08/14/17 09:10 98.7 F 85 22 93/18 L 08/14/17 09:00 99 F 82 21 93/40 L 100 08/14/17 08:29 80 22 100 08/14/17 08:00 100.7 F H 77 22 98/41 L 100 Intake and Output (Last 8hrs): Intake & Output 08/13/17 08/14/17 08/14/17 22:59 06:59 14:59 Intake Total 800 800 225 Balance 800 800 225 Intake: Intake, IV Amount 800 800 200 Right PICC 800 800 200 Blood Product 0 Red Blood Cells Cpd As1 0 Lr Unit [id number] Other 25 Red Blood Cells Cpd As1 25 Lr Unit [id number] - Medications Active Medications: Active Medications Generic Name Dose Route Start Last Admin Trade Name Freq PRN Reason Stop Dose Admin Acetaminophen 120 mg 08/14/17 04:10 Tylenol 120mg Supp CA Q6 PRN Fever >100.4 F Albuterol/Ipratropium 3 ml 08/11/17 02:00 08/14/17 07:22 Duoneb 3 Mg/0.5 Mg (3 Ml) Ud INH 3 ml RQ6 BAYLEE Administration Aspirin 81 mg 08/11/17 10:00 08/12/17 09:16 Aspirin Chewable PO 81 mg DAILY [facility] Administration Carvedilol 6.25 mg 08/11/17 10:00 08/13/17 17:37 Coreg PO Not Given BID B[facility]E Clopidogrel Bisulfate 75 mg 08/11/17 10:00 08/12/17 09:14 Plavix PO 75 mg DAILY [facility] Administration Docusate Sodium 100 mg 08/10/17 20:10 Colace PO BID PRN Constipation Famotidine 20 mg 08/11/17 10:00 08/13/17 09:35 Pepcid IVP 20 mg DAILY [facility] Administration Heparin Sodium (Porcine) 5,000 units 08/10/17 22:00 08/12/17 09:18 Heparin SC 5,000 units Q12 [facility]E Administration Imipenem/Cilastatin Sodium 250 100 mls @ 100 mls/hr 08/12/17 10:00 08/14/17 02:19 mg/ Sodium Chloride IVPB 100 mls/hr Q8H [facility] Administration Insulin Aspart 0 unit 08/10/17 21:00 08/14/17 05:04 Novolog SC Not Given Q4H [facility] Protocol Rosuvastatin Calcium 2.5 mg 08/11/17 22:00 08/13/17 22:13 Crestor PO 2.5 mg HS [facility]E Administration Sucralfate 1 gm 08/10/17 20:15 08/14/17 08:21 Carafate Oral Susp NG Not Given Q6H [facility] Vitamin A 4 ea 08/13/17 18:00 08/13/17 17:39 Vitamin A & D Oint Ud Foilpak TOP 4 ea BID [facility]LEE Administration - Patient Studies Lab Studies: Microbiology Studies 08/10/17 21:00 Blood Culture - Preliminary Blood NO GROWTH AFTER 3 DAYS 08/10/17 20:30 Blood Culture - Preliminary Blood NO GROWTH AFTER 3 DAYS 08/10/17 Unknown Gram Stain - Final Trachasp Sputum Culture - Preliminary Pseudomonas Aeruginosa Lab Studies 08/14/17 08/14/17 08/14/17 Range/Units 09:35 09:28 06:11 WBC (4.8-10.8) K/uL RBC (4.40-5.90) Mil/uL Hgb (12.0-18.0) g/dL Hct (35.0-51.0) % MCV (80.0-94.0) fL MCH (27.0-31.0) pg MCHC (33.0-37.0) g/dL RDW (11.5-14.5) % Plt Count (130-400) K/uL MPV (7.2-11.7) fL Neut % (Auto) (50.0-75.0) % Lymph % (Auto) (20.0-40.0) % [place] % (Auto) (0.0-10.0) % Eos % (Auto) (0.0-4.0) % Baso % (Auto) (0.0-2.0) % Neut # (Auto) (1.8-7.0) K/uL Lymph # (Auto) (1.0-4.3) K/uL [place] # (Auto) (0.0-0.8) K/uL Eos # (Auto) (0.0-0.7) K/uL Baso # (Auto) (0.0-0.2) K/uL Puncture Site pCO2 (35-45) mm/Hg pO2 (80-100) mm/Hg HCO3 (21-28) mmol/L ABG pH (7.35-7.45) ABG Total CO2 (22-28) mmol/L ABG O2 Saturation (95-98) % ABG Base Excess (-2.0-3.0) mmol/L ABG Hemoglobin (11.7-17.4) g/dL ABG Carboxyhemoglobin (0.5-1.5) % POC ABG HHb (Measured) (0.0-5.0) % ABG Methemoglobin (0.0-3.0) % Juan Test A-a O2 Difference mm/Hg Respiratory Index Hgb O2 Saturation (95.0-98.0) % Vent Mode Mechanical Rate FiO2 % Tidal Volume PEEP Sodium (132-148) mmol/L Potassium (3.6-5.2) mmol/L Chloride (98-107) mmol/L Carbon Dioxide (22-30) mmol/L Anion Gap (10-20) BUN (9-20) mg/dL Creatinine (0.8-1.5) mg/dL Est GFR ( Amer) Est GFR (Non-Af Amer) POC Glucose (mg/dL) 111 H (65-110) mg/dL Random Glucose (75-110) mg/dL Calcium (8.6-10.4) mg/dl Phosphorus 3.6 (2.5-4.5) mg/dL Magnesium 2.1 (1.6-2.3) mg/dL C. difficile Ag & Toxin (NEGATIVE) Blood Type B POSITIVE Antibody Screen Negative 08/14/17 08/14/17 08/14/17 Range/Units 06:11 05:15 03:53 WBC 5.6 (4.8-10.8) K/uL RBC 2.59 L (4.40-5.90) Mil/uL Hgb 7.9 L (12.0-18.0) g/dL Hct 23.0 L (35.0-51.0) % MCV 88.8 D (80.0-94.0) fL MCH 30.4 (27.0-31.0) pg MCHC 34.2 (33.0-37.0) g/dL RDW 19.6 H (11.5-14.5) % Plt Count 165 (130-400) K/uL MPV 9.2 (7.2-11.7) fL Neut % (Auto) 67.9 (50.0-75.0) % Lymph % (Auto) 11.6 L (20.0-40.0) % [place] % (Auto) 14.1 H (0.0-10.0) % Eos % (Auto) 5.7 H (0.0-4.0) % Baso % (Auto) 0.7 (0.0-2.0) % Neut # (Auto) 3.8 (1.8-7.0) K/uL Lymph # (Auto) 0.6 L (1.0-4.3) K/uL [place] # (Auto) 0.8 (0.0-0.8) K/uL Eos # (Auto) 0.3 (0.0-0.7) K/uL Baso # (Auto) 0.0 (0.0-0.2) K/uL Puncture Site Rr pCO2 37 (35-45) mm/Hg pO2 82 (80-100) mm/Hg HCO3 27.3 (21-28) mmol/L ABG pH 7.47 H (7.35-7.45) ABG Total CO2 28.0 (22-28) mmol/L ABG O2 Saturation 97.9 (95-98) % ABG Base Excess 3.1 H (-2.0-3.0) mmol/L ABG Hemoglobin 8.4 L (11.7-17.4) g/dL ABG Carboxyhemoglobin 2.4 H (0.5-1.5) % POC ABG HHb (Measured) 2.0 (0.0-5.0) % ABG Methemoglobin 0.8 (0.0-3.0) % Juan Test Pos A-a O2 Difference 193.0 mm/Hg Respiratory Index 2.4 Hgb O2 Saturation 94.8 L (95.0-98.0) % Vent Mode Prvc Mechanical Rate 22 FiO2 45.0 % Tidal Volume 450 PEEP 5 Sodium (132-148) mmol/L Potassium (3.6-5.2) mmol/L Chloride (98-107) mmol/L Carbon Dioxide (22-30) mmol/L Anion Gap (10-20) BUN (9-20) mg/dL Creatinine (0.8-1.5) mg/dL Est GFR ( Amer) Est GFR (Non-Af Amer) POC Glucose (mg/dL) 95 (65-110) mg/dL Random Glucose (75-110) mg/dL Calcium (8.6-10.4) mg/dl Phosphorus (2.5-4.5) mg/dL Magnesium (1.6-2.3) mg/dL C. difficile Ag & Toxin (NEGATIVE) Blood Type Antibody Screen 08/13/17 08/13/17 08/13/17 Range/Units 23:48 19:52 16:22 WBC (4.8-10.8) K/uL RBC (4.40-5.90) Mil/uL Hgb (12.0-18.0) g/dL Hct (35.0-51.0) % MCV (80.0-94.0) fL MCH (27.0-31.0) pg MCHC (33.0-37.0) g/dL RDW (11.5-14.5) % Plt Count (130-400) K/uL MPV (7.2-11.7) fL Neut % (Auto) (50.0-75.0) % Lymph % (Auto) (20.0-40.0) % [place] % (Auto) (0.0-10.0) % Eos % (Auto) (0.0-4.0) % Baso % (Auto) (0.0-2.0) % Neut # (Auto) (1.8-7.0) K/uL Lymph # (Auto) (1.0-4.3) K/uL [place] # (Auto) (0.0-0.8) K/uL Eos # (Auto) (0.0-0.7) K/uL Baso # (Auto) (0.0-0.2) K/uL Puncture Site pCO2 (35-45) mm/Hg pO2 (80-100) mm/Hg HCO3 (21-28) mmol/L ABG pH (7.35-7.45) ABG Total CO2 (22-28) mmol/L ABG O2 Saturation (95-98) % ABG Base Excess (-2.0-3.0) mmol/L ABG Hemoglobin (11.7-17.4) g/dL ABG Carboxyhemoglobin (0.5-1.5) % POC ABG HHb (Measured) (0.0-5.0) % ABG Methemoglobin (0.0-3.0) % Juan Test A-a O2 Difference mm/Hg Respiratory Index Hgb O2 Saturation (95.0-98.0) % Vent Mode Mechanical Rate FiO2 % Tidal Volume PEEP Sodium (132-148) mmol/L Potassium (3.6-5.2) mmol/L Chloride (98-107) mmol/L Carbon Dioxide (22-30) mmol/L Anion Gap (10-20) BUN (9-20) mg/dL Creatinine (0.8-1.5) mg/dL Est GFR ( Amer) Est GFR (Non-Af Amer) POC Glucose (mg/dL) 103 96 86 (65-110) mg/dL Random Glucose (75-110) mg/dL Calcium (8.6-10.4) mg/dl Phosphorus (2.5-4.5) mg/dL Magnesium (1.6-2.3) mg/dL C. difficile Ag & Toxin (NEGATIVE) Blood Type Antibody Screen 08/13/17 08/13/17 08/13/17 Range/Units 14:32 13:15 08:24 WBC (4.8-10.8) K/uL RBC (4.40-5.90) Mil/uL Hgb (12.0-18.0) g/dL Hct (35.0-51.0) % MCV (80.0-94.0) fL MCH (27.0-31.0) pg MCHC (33.0-37.0) g/dL RDW (11.5-14.5) % Plt Count (130-400) K/uL MPV (7.2-11.7) fL Neut % (Auto) (50.0-75.0) % Lymph % (Auto) (20.0-40.0) % [place] % (Auto) (0.0-10.0) % Eos % (Auto) (0.0-4.0) % Baso % (Auto) (0.0-2.0) % Neut # (Auto) (1.8-7.0) K/uL Lymph # (Auto) (1.0-4.3) K/uL [place] # (Auto) (0.0-0.8) K/uL Eos # (Auto) (0.0-0.7) K/uL Baso # (Auto) (0.0-0.2) K/uL Puncture Site pCO2 (35-45) mm/Hg pO2 (80-100) mm/Hg HCO3 (21-28) mmol/L ABG pH (7.35-7.45) ABG Total CO2 (22-28) mmol/L ABG O2 Saturation (95-98) % ABG Base Excess (-2.0-3.0) mmol/L ABG Hemoglobin (11.7-17.4) g/dL ABG Carboxyhemoglobin (0.5-1.5) % POC ABG HHb (Measured) (0.0-5.0) % ABG Methemoglobin (0.0-3.0) % Juan Test A-a O2 Difference mm/Hg Respiratory Index Hgb O2 Saturation (95.0-98.0) % Vent Mode Mechanical Rate FiO2 % Tidal Volume PEEP Sodium 130 L (132-148) mmol/L Potassium 4.0 (3.6-5.2) mmol/L Chloride 94 L (98-107) mmol/L Carbon Dioxide 29 (22-30) mmol/L Anion Gap 11 (10-20) BUN 27 H (9-20) mg/dL Creatinine 3.4 H (0.8-1.5) mg/dL Est GFR ( Amer) 22 Est GFR (Non-Af Amer) 19 POC Glucose (mg/dL) 87 (65-110) mg/dL Random Glucose 93 (75-110) mg/dL Calcium 8.6 (8.6-10.4) mg/dl Phosphorus (2.5-4.5) mg/dL Magnesium (1.6-2.3) mg/dL C. difficile Ag & Toxin Negative (NEGATIVE) Blood Type Antibody Screen Laboratory Results - last 24 hr 08/13/17 08/13/17 08/13/17 08:24 13:15 14:32 WBC RBC Hgb Hct MCV MCH MCHC RDW Plt Count MPV Neut % (Auto) Lymph % (Auto) [place] % (Auto) Eos % (Auto) Baso % (Auto) Neut # (Auto) Lymph # (Auto) [place] # (Auto) Eos # (Auto) Baso # (Auto) Puncture Site pCO2 pO2 HCO3 ABG pH ABG Total CO2 ABG O2 Saturation ABG Base Excess ABG Hemoglobin ABG Carboxyhemoglobin POC ABG HHb (Measured) ABG Methemoglobin Juan Test A-a O2 Difference Respiratory Index Hgb O2 Saturation Vent Mode Mechanical Rate FiO2 Tidal Volume PEEP Sodium 130 L Potassium 4.0 Chloride 94 L Carbon Dioxide 29 Anion Gap 11 BUN 27 H Creatinine 3.4 H Est GFR ( Amer) 22 Est GFR (Non-Af Amer) 19 POC Glucose (mg/dL) 87 Random Glucose 93 Calcium 8.6 Phosphorus Magnesium C. difficile Ag & Toxin Negative Blood Type Antibody Screen 08/13/17 08/13/17 08/13/17 16:22 19:52 23:48 WBC RBC Hgb Hct MCV MCH MCHC RDW Plt Count MPV Neut % (Auto) Lymph % (Auto) [place] % (Auto) Eos % (Auto) Baso % (Auto) Neut # (Auto) Lymph # (Auto) [place] # (Auto) Eos # (Auto) Baso # (Auto) Puncture Site pCO2 pO2 HCO3 ABG pH ABG Total CO2 ABG O2 Saturation ABG Base Excess ABG Hemoglobin ABG Carboxyhemoglobin POC ABG HHb (Measured) ABG Methemoglobin Juan Test A-a O2 Difference Respiratory Index Hgb O2 Saturation Vent Mode Mechanical Rate FiO2 Tidal Volume PEEP Sodium Potassium Chloride Carbon Dioxide Anion Gap BUN Creatinine Est GFR ( Amer) Est GFR (Non-Af Amer) POC Glucose (mg/dL) 86 96 103 Random Glucose Calcium Phosphorus Magnesium C. difficile Ag & Toxin Blood Type Antibody Screen 08/14/17 08/14/17 08/14/17 03:53 05:15 06:11 WBC 5.6 RBC 2.59 L Hgb 7.9 L Hct 23.0 L MCV 88.8 D MCH 30.4 MCHC 34.2 RDW 19.6 H Plt Count 165 MPV 9.2 Neut % (Auto) 67.9 Lymph % (Auto) 11.6 L [place] % (Auto) 14.1 H Eos % (Auto) 5.7 H Baso % (Auto) 0.7 Neut # (Auto) 3.8 Lymph # (Auto) 0.6 L [place] # (Auto) 0.8 Eos # (Auto) 0.3 Baso # (Auto) 0.0 Puncture Site Rr pCO2 37 pO2 82 HCO3 27.3 ABG pH 7.47 H ABG Total CO2 28.0 ABG O2 Saturation 97.9 ABG Base Excess 3.1 H ABG Hemoglobin 8.4 L ABG Carboxyhemoglobin 2.4 H POC ABG HHb (Measured) 2.0 ABG Methemoglobin 0.8 Juan Test Pos A-a O2 Difference 193.0 Respiratory Index 2.4 Hgb O2 Saturation 94.8 L Vent Mode Prvc Mechanical Rate 22 FiO2 45.0 Tidal Volume 450 PEEP 5 Sodium Potassium Chloride Carbon Dioxide Anion Gap BUN Creatinine Est GFR ( Amer) Est GFR (Non-Af Amer) POC Glucose (mg/dL) 95 Random Glucose Calcium Phosphorus Magnesium C. difficile Ag & Toxin Blood Type Antibody Screen 08/14/17 08/14/17 08/14/17 06:11 09:28 09:35 WBC RBC Hgb Hct MCV MCH MCHC RDW Plt Count MPV Neut % (Auto) Lymph % (Auto) [place] % (Auto) Eos % (Auto) Baso % (Auto) Neut # (Auto) Lymph # (Auto) [place] # (Auto) Eos # (Auto) Baso # (Auto) Puncture Site pCO2 pO2 HCO3 ABG pH ABG Total CO2 ABG O2 Saturation ABG Base Excess ABG Hemoglobin ABG Carboxyhemoglobin POC ABG HHb (Measured) ABG Methemoglobin Juan Test A-a O2 Difference Respiratory Index Hgb O2 Saturation Vent Mode Mechanical Rate FiO2 Tidal Volume PEEP Sodium Potassium Chloride Carbon Dioxide Anion Gap BUN Creatinine Est GFR ( Amer) Est GFR (Non-Af Amer) POC Glucose (mg/dL) 111 H Random Glucose Calcium Phosphorus 3.6 Magnesium 2.1 C. difficile Ag & Toxin Blood Type B POSITIVE Antibody Screen Negative Fingerstick Blood Sugar Results: 95 Critical Care Progress Note - Nutrition Nutrition: Nutrition Category Date Time Status NPO Diet [DIET] Diets 08/13/17 Breakfast Active Assessment/Plan - Assessment and Plan (Free Text) Assessment: 62M ESRD for Trach/Jtube Plan: Psych: no active problems Neuro: no active problems Cardio: CAD, HTN ASA 81mg QD Coreg 6.25 PO BID Plavix 75mg PO QD Rosuvastatin 2.5mg PO QHS Pulm: Respiratory failure s/p intubation, PNA, COPD Psuedomonas + trach culture Primaxin duoneb Tracheostomy planned for today with surgery ([place]) GI: Chronic Dysphagia ([place]) Possible G or J tube placement as per GI/surgery Sucrafalfate Renal: ESRD ([place]) HD: T, Th, Sat Endo: IDDM, hypothyroidism ISS Electrolytes: hypokalemia kdur Heme/Onc: Anemia Transfused 1 unit PRBC monitor Hgb PPx: Pepcid 20 IVP QD Heparin 5,000 units SC QD <Kee,Luis S - Last Filed: 08/14/17 18:39> CCU Objective - Vital Signs / Intake & Output Vital Signs (Last 4 hours): Vital Signs Temp Pulse Resp BP Pulse Ox 08/14/17 18:00 87 22 75/40 L 99 08/14/17 17:52 85 19 81/24 L 99 08/14/17 17:48 85 23 76/17 L 99 08/14/17 17:45 84 22 88/44 L 98 08/14/17 17:34 86 22 120/90 99 08/14/17 17:30 83 22 120/90 98 08/14/17 17:15 84 22 74/40 L 22 L 08/14/17 16:30 82 22 87/40 L 99 08/14/17 16:00 99.4 F 81 22 94/40 L 100 08/14/17 15:57 80 22 92/19 L 99 08/14/17 15:51 82 22 94/16 L 99 08/14/17 15:45 80 22 98/40 L 100 08/14/17 15:36 85 22 99 08/14/17 15:30 98 F 86 22 100/40 L 100 Intake and Output (Last 8hrs): Intake & Output 08/14/17 08/14/17 08/14/17 06:59 14:59 22:59 Intake Total 800 1625 700 Balance 800 1625 700 Intake: IV 200 Intake, IV Amount 800 700 700 Right PICC 800 700 700 Blood Product 650 Red Blood Cells Cpd As1 325 Lr Unit [id number] Red Blood Cells Cpd As1 325 Lr Unit [id number] Other 75 Red Blood Cells Cpd As1 50 Lr Unit [id number] Red Blood Cells Cpd As1 25 Lr Unit [id number] - Medications Active Medications: Active Medications Generic Name Dose Route Start Last Admin Trade Name Freq PRN Reason Stop Dose Admin Acetaminophen 120 mg 08/14/17 04:10 Tylenol 120mg Supp CA Q6 PRN Fever >100.4 F Albuterol/Ipratropium 3 ml 08/11/17 02:00 08/14/17 13:31 Duoneb 3 Mg/0.5 Mg (3 Ml) Ud INH 3 ml RQ6 BAYLEE Administration Aspirin 81 mg 08/11/17 10:00 08/14/17 11:00 Aspirin Chewable PO Not Given DAILY [facility] Carvedilol 6.25 mg 08/11/17 10:00 08/14/17 11:00 Coreg PO Not Given BID [facility] Clopidogrel Bisulfate 75 mg 08/11/17 10:00 08/14/17 11:00 Plavix PO Not Given DAILY [facility] Docusate Sodium 100 mg 08/10/17 20:10 Colace PO BID PRN Constipation Famotidine 20 mg 08/11/17 10:00 08/14/17 17:51 Pepcid IVP 20 mg DAILY [facility] Administration Heparin Sodium (Porcine) 5,000 units 08/10/17 22:00 08/14/17 11:00 Heparin SC Not Given Q12 [facility] Imipenem/Cilastatin Sodium 250 100 mls @ 100 mls/hr 08/12/17 10:00 08/14/17 17:47 mg/ Sodium Chloride IVPB 100 mls/hr Q8H [facility] Administration Norepinephrine Bitartrate 4 mg 254 mls @ 15.24 mls/hr 08/14/17 18:21 / Dextrose IV .[id number] PRN TITRATE PER MD ORDER Protocol 4 MCG/MIN Insulin Aspart 0 unit 08/10/17 21:00 08/14/17 17:50 Novolog SC Not Given Q4H [facility] Protocol Rosuvastatin Calcium 2.5 mg 08/11/17 22:00 08/13/17 22:13 Crestor PO 2.5 mg HS [facility] Administration Sucralfate 1 gm 08/10/17 20:15 08/14/17 15:00 Carafate Oral Susp NG Not Given Q6H [facility] Vitamin A 4 ea 08/13/17 18:00 08/14/17 17:54 Vitamin A & D Oint Ud Foilpak TOP 4 ea BID [facility]LEE Administration - Patient Studies Lab Studies: Microbiology Studies 08/10/17 Unknown Gram Stain - Final Trachasp Sputum Culture - Final Pseudomonas Aeruginosa 08/10/17 21:00 Blood Culture - Preliminary Blood NO GROWTH AFTER 3 DAYS 08/10/17 20:30 Blood Culture - Preliminary Blood NO GROWTH AFTER 3 DAYS Lab Studies 08/14/17 08/14/17 08/14/17 Range/Units 16:12 14:08 09:35 WBC (4.8-10.8) K/uL RBC (4.40-5.90) Mil/uL Hgb (12.0-18.0) g/dL Hct (35.0-51.0) % MCV (80.0-94.0) fL MCH (27.0-31.0) pg MCHC (33.0-37.0) g/dL RDW (11.5-14.5) % Plt Count (130-400) K/uL MPV (7.2-11.7) fL Neut % (Auto) (50.0-75.0) % Lymph % (Auto) (20.0-40.0) % [place] % (Auto) (0.0-10.0) % Eos % (Auto) (0.0-4.0) % Baso % (Auto) (0.0-2.0) % Neut # (Auto) (1.8-7.0) K/uL Lymph # (Auto) (1.0-4.3) K/uL [place] # (Auto) (0.0-0.8) K/uL Eos # (Auto) (0.0-0.7) K/uL Baso # (Auto) (0.0-0.2) K/uL Puncture Site pCO2 (35-45) mm/Hg pO2 (80-100) mm/Hg HCO3 (21-28) mmol/L ABG pH (7.35-7.45) ABG Total CO2 (22-28) mmol/L ABG O2 Saturation (95-98) % ABG Base Excess (-2.0-3.0) mmol/L ABG Hemoglobin (11.7-17.4) g/dL ABG Carboxyhemoglobin (0.5-1.5) % POC ABG HHb (Measured) (0.0-5.0) % ABG Methemoglobin (0.0-3.0) % Juan Test A-a O2 Difference mm/Hg Respiratory Index Hgb O2 Saturation (95.0-98.0) % Vent Mode Mechanical Rate FiO2 % Tidal Volume PEEP POC Glucose (mg/dL) 97 99 111 H (65-110) mg/dL Phosphorus (2.5-4.5) mg/dL Magnesium (1.6-2.3) mg/dL Blood Type Antibody Screen 02/06/18 02/06/18 02/06/18 Range/Units 09:28 06:11 06:11 WBC 5.6 (4.8-10.8) K/uL RBC 2.59 L (4.40-5.90) Mil/uL Hgb 7.9 L (12.0-18.0) g/dL Hct 23.0 L (35.0-51.0) % MCV 88.8 D (80.0-94.0) fL MCH 30.4 (27.0-31.0) pg MCHC 34.2 (33.0-37.0) g/dL RDW 19.6 H (11.5-14.5) % Plt Count 165 (130-400) K/uL MPV 9.2 (7.2-11.7) fL Neut % (Auto) 67.9 (50.0-75.0) % Lymph % (Auto) 11.6 L (20.0-40.0) % [place] % (Auto) 14.1 H (0.0-10.0) % Eos % (Auto) 5.7 H (0.0-4.0) % Baso % (Auto) 0.7 (0.0-2.0) % Neut # (Auto) 3.8 (1.8-7.0) K/uL Lymph # (Auto) 0.6 L (1.0-4.3) K/uL [place] # (Auto) 0.8 (0.0-0.8) K/uL Eos # (Auto) 0.3 (0.0-0.7) K/uL Baso # (Auto) 0.0 (0.0-0.2) K/uL Puncture Site pCO2 (35-45) mm/Hg pO2 (80-100) mm/Hg HCO3 (21-28) mmol/L ABG pH (7.35-7.45) ABG Total CO2 (22-28) mmol/L ABG O2 Saturation (95-98) % ABG Base Excess (-2.0-3.0) mmol/L ABG Hemoglobin (11.7-17.4) g/dL ABG Carboxyhemoglobin (0.5-1.5) % POC ABG HHb (Measured) (0.0-5.0) % ABG Methemoglobin (0.0-3.0) % Juan Test A-a O2 Difference mm/Hg Respiratory Index Hgb O2 Saturation (95.0-98.0) % Vent Mode Mechanical Rate FiO2 % Tidal Volume PEEP POC Glucose (mg/dL) (65-110) mg/dL Phosphorus 3.6 (2.5-4.5) mg/dL Magnesium 2.1 (1.6-2.3) mg/dL Blood Type B POSITIVE Antibody Screen Negative 08/14/17 08/14/17 08/13/17 Range/Units 05:15 03:53 23:48 WBC (4.8-10.8) K/uL RBC (4.40-5.90) Mil/uL Hgb (12.0-18.0) g/dL Hct (35.0-51.0) % MCV (80.0-94.0) fL MCH (27.0-31.0) pg MCHC (33.0-37.0) g/dL RDW (11.5-14.5) % Plt Count (130-400) K/uL MPV (7.2-11.7) fL Neut % (Auto) (50.0-75.0) % Lymph % (Auto) (20.0-40.0) % [place] % (Auto) (0.0-10.0) % Eos % (Auto) (0.0-4.0) % Baso % (Auto) (0.0-2.0) % Neut # (Auto) (1.8-7.0) K/uL Lymph # (Auto) (1.0-4.3) K/uL [place] # (Auto) (0.0-0.8) K/uL Eos # (Auto) (0.0-0.7) K/uL Baso # (Auto) (0.0-0.2) K/uL Puncture Site Rr pCO2 37 (35-45) mm/Hg pO2 82 (80-100) mm/Hg HCO3 27.3 (21-28) mmol/L ABG pH 7.47 H (7.35-7.45) ABG Total CO2 28.0 (22-28) mmol/L ABG O2 Saturation 97.9 (95-98) % ABG Base Excess 3.1 H (-2.0-3.0) mmol/L ABG Hemoglobin 8.4 L (11.7-17.4) g/dL ABG Carboxyhemoglobin 2.4 H (0.5-1.5) % POC ABG HHb (Measured) 2.0 (0.0-5.0) % ABG Methemoglobin 0.8 (0.0-3.0) % Juan Test Pos A-a O2 Difference 193.0 mm/Hg Respiratory Index 2.4 Hgb O2 Saturation 94.8 L (95.0-98.0) % Vent Mode Prvc Mechanical Rate 22 FiO2 45.0 % Tidal Volume 450 PEEP 5 POC Glucose (mg/dL) 95 103 (65-110) mg/dL Phosphorus (2.5-4.5) mg/dL Magnesium (1.6-2.3) mg/dL Blood Type Antibody Screen 08/13/17 Range/Units 19:52 WBC (4.8-10.8) K/uL RBC (4.40-5.90) Mil/uL Hgb (12.0-18.0) g/dL Hct (35.0-51.0) % MCV (80.0-94.0) fL MCH (27.0-31.0) pg MCHC (33.0-37.0) g/dL RDW (11.5-14.5) % Plt Count (130-400) K/uL MPV (7.2-11.7) fL Neut % (Auto) (50.0-75.0) % Lymph % (Auto) (20.0-40.0) % [place] % (Auto) (0.0-10.0) % Eos % (Auto) (0.0-4.0) % Baso % (Auto) (0.0-2.0) % Neut # (Auto) (1.8-7.0) K/uL Lymph # (Auto) (1.0-4.3) K/uL [place] # (Auto) (0.0-0.8) K/uL Eos # (Auto) (0.0-0.7) K/uL Baso # (Auto) (0.0-0.2) K/uL Puncture Site pCO2 (35-45) mm/Hg pO2 (80-100) mm/Hg HCO3 (21-28) mmol/L ABG pH (7.35-7.45) ABG Total CO2 (22-28) mmol/L ABG O2 Saturation (95-98) % ABG Base Excess (-2.0-3.0) mmol/L ABG Hemoglobin (11.7-17.4) g/dL ABG Carboxyhemoglobin (0.5-1.5) % POC ABG HHb (Measured) (0.0-5.0) % ABG Methemoglobin (0.0-3.0) % Juan Test A-a O2 Difference mm/Hg Respiratory Index Hgb O2 Saturation (95.0-98.0) % Vent Mode Mechanical Rate FiO2 % Tidal Volume PEEP POC Glucose (mg/dL) 96 (65-110) mg/dL Phosphorus (2.5-4.5) mg/dL Magnesium (1.6-2.3) mg/dL Blood Type Antibody Screen Laboratory Results - last 24 hr 08/13/17 08/13/17 08/14/17 19:52 23:48 03:53 WBC RBC Hgb Hct MCV MCH MCHC RDW Plt Count MPV Neut % (Auto) Lymph % (Auto) [place] % (Auto) Eos % (Auto) Baso % (Auto) Neut # (Auto) Lymph # (Auto) [place] # (Auto) Eos # (Auto) Baso # (Auto) Puncture Site pCO2 pO2 HCO3 ABG pH ABG Total CO2 ABG O2 Saturation ABG Base Excess ABG Hemoglobin ABG Carboxyhemoglobin POC ABG HHb (Measured) ABG Methemoglobin Juan Test A-a O2 Difference Respiratory Index Hgb O2 Saturation Vent Mode Mechanical Rate FiO2 Tidal Volume PEEP POC Glucose (mg/dL) 96 103 95 Phosphorus Magnesium Blood Type Antibody Screen 08/14/17 08/14/17 08/14/17 05:15 06:11 06:11 WBC 5.6 RBC 2.59 L Hgb 7.9 L Hct 23.0 L MCV 88.8 D MCH 30.4 MCHC 34.2 RDW 19.6 H Plt Count 165 MPV 9.2 Neut % (Auto) 67.9 Lymph % (Auto) 11.6 L [place] % (Auto) 14.1 H Eos % (Auto) 5.7 H Baso % (Auto) 0.7 Neut # (Auto) 3.8 Lymph # (Auto) 0.6 L [place] # (Auto) 0.8 Eos # (Auto) 0.3 Baso # (Auto) 0.0 Puncture Site Rr pCO2 37 pO2 82 HCO3 27.3 ABG pH 7.47 H ABG Total CO2 28.0 ABG O2 Saturation 97.9 ABG Base Excess 3.1 H ABG Hemoglobin 8.4 L ABG Carboxyhemoglobin 2.4 H POC ABG HHb (Measured) 2.0 ABG Methemoglobin 0.8 Juan Test Pos A-a O2 Difference 193.0 Respiratory Index 2.4 Hgb O2 Saturation 94.8 L Vent Mode Prvc Mechanical Rate 22 FiO2 45.0 Tidal Volume 450 PEEP 5 POC Glucose (mg/dL) Phosphorus 3.6 Magnesium 2.1 Blood Type Antibody Screen 08/14/17 08/14/17 08/14/17 09:28 09:35 14:08 WBC RBC Hgb Hct MCV MCH MCHC RDW Plt Count MPV Neut % (Auto) Lymph % (Auto) [place] % (Auto) Eos % (Auto) Baso % (Auto) Neut # (Auto) Lymph # (Auto) [place] # (Auto) Eos # (Auto) Baso # (Auto) Puncture Site pCO2 pO2 HCO3 ABG pH ABG Total CO2 ABG O2 Saturation ABG Base Excess ABG Hemoglobin ABG Carboxyhemoglobin POC ABG HHb (Measured) ABG Methemoglobin Juan Test A-a O2 Difference Respiratory Index Hgb O2 Saturation Vent Mode Mechanical Rate FiO2 Tidal Volume PEEP POC Glucose (mg/dL) 111 H 99 Phosphorus Magnesium Blood Type B POSITIVE Antibody Screen Negative 08/14/17 16:12 WBC RBC Hgb Hct MCV MCH MCHC RDW Plt Count MPV Neut % (Auto) Lymph % (Auto) [place] % (Auto) Eos % (Auto) Baso % (Auto) Neut # (Auto) Lymph # (Auto) [place] # (Auto) Eos # (Auto) Baso # (Auto) Puncture Site pCO2 pO2 HCO3 ABG pH ABG Total CO2 ABG O2 Saturation ABG Base Excess ABG Hemoglobin ABG Carboxyhemoglobin POC ABG HHb (Measured) ABG Methemoglobin Juan Test A-a O2 Difference Respiratory Index Hgb O2 Saturation Vent Mode Mechanical Rate FiO2 Tidal Volume PEEP POC Glucose (mg/dL) 97 Phosphorus Magnesium Blood Type Antibody Screen Critical Care Progress Note - Nutrition Nutrition: Nutrition Category Date Time Status NPO Diet [DIET] Diets 08/13/17 Breakfast Active Attending/Attestation - Attestation I have personally seen and examined this patient.: Yes I have fully participated in the care of the patient.: Yes I have reviewed all pertinent clinical information: Yes Notes (Text): 08/14/17 18:38 patient seen and examined in the intensive care unit. Case discussed with house staff in the morning around Status post tracheostomy Possible PEG tomorrow Continue ventilatory support Started on pressors for hypotension Continue antibiotics
[2017-08-14] MEDS ORDERED: Phenylephrine 10 mg/ml Inj ONE (13:58)
[2017-08-14] MEDS ORDERED: ePHEDrine 50 mg/ml Inj ONE (13:58)
--- NOTE | 2017-08-14 15:42 | PCM.SURG1 ---
Surgeon's Initial Post Op Note - Surgeon's Notes Surgeon: Dr. Deshpande Panel Machine Setter: [id number], David OMS3 Pre-Operative Diagnosis: Prolonged intubation; respiratory failure Operative Findings: see op note Post-Operative Diagnosis: as above Operation Performed: percutaneous tracheostomy Specimen/Specimens Removed: none Estimated Blood Loss: EBL {In ML}: 3 Blood Products Given: N/A Drains Used: No Drains Date of Surgery/Procedure: 08/14/17 Time of Surgery/Procedure: 15:42
--- NOTE | 2017-08-14 16:42 | CP.PCM.PN ---
Subjective - Date & Time of Evaluation Date of Evaluation: 08/14/17 Time of Evaluation: 13:40 - Subjective Subjective: clinically same Objective - Vital Signs/Intake and Output Vital Signs (last 24 hours): Temp Pulse Resp BP Pulse Ox 99.4 F 81 19 94/40 L 100 08/14/17 16:00 08/14/17 16:00 08/14/17 16:00 08/14/17 16:00 08/14/17 16:00 Intake and Output: 08/14/17 08/14/17 06:59 18:59 Intake Total 1200 1825 Balance 1200 1825 - Medications Medications: Current Medications Acetaminophen (Tylenol 120mg Supp) 120 mg UT Q6 PRN PRN Reason: Fever >100.4 F Albuterol/Ipratropium (Duoneb 3 Mg/0.5 Mg (3 Ml) Ud) 3 ml INH RQ6 [facility] Last Admin: 08/14/17 13:31 Dose: 3 ml Aspirin (Aspirin Chewable) 81 mg PO DAILY [facility] Last Admin: 08/14/17 11:00 Dose: Not Given Carvedilol (Coreg) 6.25 mg PO BID [facility] Last Admin: 08/14/17 11:00 Dose: Not Given Clopidogrel Bisulfate (Plavix) 75 mg PO DAILY [facility] Last Admin: 08/14/17 11:00 Dose: Not Given Docusate Sodium (Colace) 100 mg PO BID PRN PRN Reason: Constipation Famotidine (Pepcid) 20 mg IVP DAILY [facility] Last Admin: 08/13/17 09:35 Dose: 20 mg Heparin Sodium (Porcine) (Heparin) 5,000 units SC Q12 [facility] Last Admin: 08/14/17 11:00 Dose: Not Given Imipenem/Cilastatin Sodium 250 (mg/ Sodium Chloride) 100 mls @ 100 mls/hr IVPB Q8H [facility] Last Admin: 08/14/17 10:00 Dose: Not Given Insulin Aspart (Novolog) 0 unit SC Q4H [facility] PRN Reason: Protocol Last Admin: 08/14/17 13:00 Dose: Not Given Rosuvastatin Calcium (Crestor) 2.5 mg PO HS [facility] Last Admin: 08/13/17 22:13 Dose: 2.5 mg Sucralfate (Carafate Oral Susp) 1 gm NG Q6H [facility] Last Admin: 08/14/17 15:00 Dose: Not Given Vitamin A (Vitamin A & D Oint Ud Foilpak) 4 ea TOP BID [facility] Last Admin: 08/13/17 17:39 Dose: 4 ea - Labs Labs: 08/14/17 06:11 08/13/17 14:32 PT 13.1 SECONDS (9.7-12.2) H 08/10/17 21:21 INR 1.2 08/10/17 21:21 APTT 46 SECONDS (21-34) H 08/10/17 21:21 - Constitutional Appears: Well - Head Exam Head Exam: ATRAUMATIC, NORMAL INSPECTION, NORMOCEPHALIC - Eye Exam Eye Exam: EOMI, Normal appearance, PERRL Pupil Exam: NORMAL ACCOMODATION, PERRL - ENT Exam ENT Exam: Mucous Membranes Moist, Normal Exam - Neck Exam Neck Exam: Full ROM, Normal Inspection. absent: Lymphadenopathy - Respiratory Exam Respiratory Exam: Decreased Breath Sounds - Cardiovascular Exam Cardiovascular Exam: REGULAR RHYTHM, +S1, +S2 - GI/Abdominal Exam GI & Abdominal Exam: Soft, Diminished Bowel Sounds - Rectal Exam Rectal Exam: Deferred
--- NOTE | 2017-08-14 17:06 | CP.PCM.PN ---
Subjective - Date & Time of Evaluation Date of Evaluation: 08/14/17 Time of Evaluation: 17:03 - Subjective Subjective: Patient is S/P trach, on vent. Objective - Vital Signs/Intake and Output Vital Signs (last 24 hours): Temp Pulse Resp BP Pulse Ox 99.4 F 81 19 94/40 L 100 08/14/17 16:00 08/14/17 16:00 08/14/17 16:00 08/14/17 16:00 08/14/17 16:00 Intake and Output: 08/14/17 08/14/17 06:59 18:59 Intake Total 1200 1825 Balance 1200 1825 - Medications Medications: Current Medications Acetaminophen (Tylenol 120mg Supp) 120 mg WA Q6 PRN PRN Reason: Fever >100.4 F Albuterol/Ipratropium (Duoneb 3 Mg/0.5 Mg (3 Ml) Ud) 3 ml INH RQ6 [facility] Last Admin: 08/14/17 13:31 Dose: 3 ml Aspirin (Aspirin Chewable) 81 mg PO DAILY [facility] Last Admin: 08/14/17 11:00 Dose: Not Given Carvedilol (Coreg) 6.25 mg PO BID [facility] Last Admin: 08/14/17 11:00 Dose: Not Given Clopidogrel Bisulfate (Plavix) 75 mg PO DAILY [facility] Last Admin: 08/14/17 11:00 Dose: Not Given Docusate Sodium (Colace) 100 mg PO BID PRN PRN Reason: Constipation Famotidine (Pepcid) 20 mg IVP DAILY [facility] Last Admin: 08/13/17 09:35 Dose: 20 mg Heparin Sodium (Porcine) (Heparin) 5,000 units SC Q12 [facility] Last Admin: 08/14/17 11:00 Dose: Not Given Imipenem/Cilastatin Sodium 250 (mg/ Sodium Chloride) 100 mls @ 100 mls/hr IVPB Q8H [facility] Last Admin: 08/14/17 10:00 Dose: Not Given Insulin Aspart (Novolog) 0 unit SC Q4H [facility] PRN Reason: Protocol Last Admin: 08/14/17 13:00 Dose: Not Given Rosuvastatin Calcium (Crestor) 2.5 mg PO HS [facility] Last Admin: 08/13/17 22:13 Dose: 2.5 mg Sucralfate (Carafate Oral Susp) 1 gm NG Q6H [facility] Last Admin: 08/14/17 15:00 Dose: Not Given Vitamin A (Vitamin A & D Oint Ud Foilpak) 4 ea TOP BID [facility] Last Admin: 08/13/17 17:39 Dose: 4 ea - Labs Labs: 08/14/17 06:11 08/13/17 14:32 PT 13.1 SECONDS (9.7-12.2) H 08/10/17 21:21 INR 1.2 08/10/17 21:21 APTT 46 SECONDS (21-34) H 08/10/17 21:21 - Neck Exam Neck Exam: absent: Lymphadenopathy, Thyromegaly Additional comments: S/P tracheostomt - Respiratory Exam Respiratory Exam: NORMAL BREATHING PATTERN - Cardiovascular Exam Cardiovascular Exam: REGULAR RHYTHM, +S1, +S2. absent: Murmur - GI/Abdominal Exam GI & Abdominal Exam: Soft, Normal Bowel Sounds. absent: Tenderness, Mass, Organomegaly - Rectal Exam Rectal Exam: Deferred - Extremities Exam Extremities Exam: absent: Calf Tenderness, Pedal Edema Assessment and Plan (1) Dysphagia Assessment & Plan: PEG has been scheduled for . Please hold aspirin and clopidogrel until after the procedure. Status: Acute
[2017-08-14] MEDS ORDERED: Sodium Chloride 0.9% 500 ML IV ONE (17:18)
--- NOTE | 2017-08-14 18:31 | CP.PCM.PN ---
Subjective - Date & Time of Evaluation Date of Evaluation: 08/14/17 Time of Evaluation: 18:30 Objective - Vital Signs/Intake and Output Vital Signs (last 24 hours): Temp Pulse Resp BP Pulse Ox 99.4 F 87 22 75/40 L 99 08/14/17 16:00 08/14/17 18:00 08/14/17 18:00 08/14/17 18:00 08/14/17 18:00 Intake and Output: 08/14/17 08/14/17 06:59 18:59 Intake Total 1200 2325 Balance 1200 2325 - Medications Medications: Current Medications Acetaminophen (Tylenol 120mg Supp) 120 mg NM Q6 PRN PRN Reason: Fever >100.4 F Albuterol/Ipratropium (Duoneb 3 Mg/0.5 Mg (3 Ml) Ud) 3 ml INH RQ6 [facility] Last Admin: 08/14/17 13:31 Dose: 3 ml Aspirin (Aspirin Chewable) 81 mg PO DAILY [facility] Last Admin: 08/14/17 11:00 Dose: Not Given Carvedilol (Coreg) 6.25 mg PO BID [facility] Last Admin: 08/14/17 11:00 Dose: Not Given Clopidogrel Bisulfate (Plavix) 75 mg PO DAILY [facility] Last Admin: 08/14/17 11:00 Dose: Not Given Docusate Sodium (Colace) 100 mg PO BID PRN PRN Reason: Constipation Famotidine (Pepcid) 20 mg IVP DAILY [facility] Last Admin: 08/14/17 17:51 Dose: 20 mg Heparin Sodium (Porcine) (Heparin) 5,000 units SC Q12 [facility] Last Admin: 08/14/17 11:00 Dose: Not Given Imipenem/Cilastatin Sodium 250 (mg/ Sodium Chloride) 100 mls @ 100 mls/hr IVPB Q8H [facility] Last Admin: 08/14/17 17:47 Dose: 100 mls/hr Norepinephrine Bitartrate 4 mg (/ Dextrose) 254 mls @ 15.24 mls/hr IV .[id number] PRN; Protocol; 4 MCG/MIN PRN Reason: TITRATE PER MD ORDER Insulin Aspart (Novolog) 0 unit SC Q4H [facility] PRN Reason: Protocol Last Admin: 08/14/17 17:50 Dose: Not Given Rosuvastatin Calcium (Crestor) 2.5 mg PO HS [facility] Last Admin: 08/13/17 22:13 Dose: 2.5 mg Sucralfate (Carafate Oral Susp) 1 gm NG Q6H [facility] Last Admin: 08/14/17 15:00 Dose: Not Given Vitamin A (Vitamin A & D Oint Ud Foilpak) 4 ea TOP BID [facility] Last Admin: 08/14/17 17:54 Dose: 4 ea - Labs Labs: 08/14/17 06:11 08/13/17 14:32 PT 13.1 SECONDS (9.7-12.2) H 08/10/17 21:21 INR 1.2 08/10/17 21:21 APTT 46 SECONDS (21-34) H 08/10/17 21:21
[2017-08-14 21:45] LABS: BASO % 0.1 % (0.0-2.0); EOS # 0.2 K/uL (0.0-0.7); EOS % 1.1 % (0.0-4.0); LYMPH # 0.3 K/uL (1.0-4.3); LYMPH % 2.1 % (20.0-40.0); MEAN CELL VOLUME 89.4 fL (80.0-94.0); MEAN CORPUSCULAR HEMOGLOBIN 29.6 pg (27.0-31.0); MEAN CORPUSCULAR HGB CONC 33.1 g/dL (33.0-37.0); MEAN PLATELET VOLUME 8.9 fL (7.2-11.7); MONO # 0.6 K/uL (0.0-0.8); MONO % 3.6 % (0.0-10.0); NEUT # 14.4 K/uL (1.8-7.0); NEUT % 93.1 % (50.0-75.0); PLATELET COUNT 188 K/uL (130-400); RBC 3.79 Mil/uL (4.40-5.90); RED CELL DISTRIBUTION WIDTH 18.7 % (11.5-14.5)
[2017-08-14 21:47] LABS: HEMOGLOBIN 11.2 g/dL (12.0-18.0); WHITE BLOOD COUNT 15.4 K/uL (4.8-10.8)
[2017-08-14 21:53] LABS: CALCIUM 7.9 mg/dl (8.6-10.4)
[2017-08-14 22:52] LABS: BANDS 49 % (0-2); EOSINOPHIL 2 % (0-4); LYMPHOCYTE 1 % (20-40); MONOCYTE 5 % (0-10); TOTAL CELLS COUNTED 100
[2017-08-14 22:53] LABS: ANISOCYTOSIS SLIGHT; HYPOCHROMIC SLIGHT; LARGE PLATELETS PRESENT; NEUTROPHIL 43 % (50-75); PLATELET ESTIMATE NORMAL (NORMAL); POIKILOCYTOSIS SLIGHT
[2017-08-14] MEDS: Sodium Chloride 0.9% 250 ML IV ONE ×2 (22:54→23:30)
[2017-08-14] MEDS: Rosuvastatin Calcium 2.5 mg Tab PO SCH (22:57)
[2017-08-14] MEDS ORDERED: Vancomycin 500mg/D5W 100 ml 500 MG/100 ML BAG IVPB ONE (23:00)
--- NOTE | 2017-08-14 23:58 | OP ---
PROCEDURE DATE: 08/14/2017. PREOPERATIVE DIAGNOSIS: Respiratory failure. POSTOPERATIVE DIAGNOSIS: Respiratory failure. PROCEDURE: Placement of #8 Shiley tracheostomy tube, percutaneous tracheostomy. SURGEON: Rodri Deshpande Jr., MD [employer] ARCHITECT: None. ANESTHESIOLOGIST: Mr. Lewis. TYPE OF ANESTHESIA: Local with sedation. INDICATIONS: The patient is an over middle-aged man on dialysis who presents with respiratory failure. OPERATIVE FINDINGS: 1. #8 tracheostomy was placed. 2. It appeared that the patient previously had a tracheostomy, which made the procedure more difficult. DESCRIPTION OF PROCEDURE: Bronchoscopy was carried out. We visualized the sidney, we slowly withdrew the tube until we were able to visualize where pressures is being applied on the anterior margin with a old tracheostomy scar. At that point, we then placed a white coated needle, a guidewire, a dilator eventually placed the catheter and the sheath in the appropriate location and deployed the tracheostomy tube which was #8 Shiley. This was inflated. There was good flow. We then redid the bronchoscopy through the tube to confirm that we were in the trachea and this was confirmed by visualizing the sidney. Procedure was then terminated and the tracheostomy tube was secured to the skin. The operation carried out percutaneous tracheostomy more difficult than usual due to previous tracheostomy. Rodri Deshpande Jr., MD
[2017-08-15] MEDS: (Novolog) Insulin Aspart, Recombinant 100 u/ml 10 ml vial SC SCH ×6 (01:00→20:04)
[2017-08-15] MEDS: Imipenem/Cilastatin 250 MG in Sodium Chloride 100 ML IVPB SCH (01:02)
[2017-08-15] MEDS: Sucralfate 1 gm/10 ml Oral Susp UD NG SCH ×4 (01:32→20:03)
[2017-08-15] MEDS: Albuterol-Ipratrop 3 mg / 0.5 (3 ml) UD INH SCH ×4 (01:37→19:17)
[2017-08-15 05:27] LABS: ARTERIAL BLOOD GAS HCO3 25.6 mmol/L (21-28); ARTERIAL BLOOD GAS HEMOGLOBIN 10.7 g/dL (11.7-17.4); ARTERIAL BLOOD GAS O2 SAT 90.3 % (95-98); ARTERIAL BLOOD GAS PCO2 45 mm/Hg (35-45); ARTERIAL BLOOD GAS PH 7.38 (7.35-7.45); ARTERIAL BLOOD GAS PO2 50 mm/Hg (80-100)
[2017-08-15 06:50] LABS: BASO # 0.1 K/uL (0.0-0.2); BASO % 0.3 % (0.0-2.0); EOS % 0.2 % (0.0-4.0); HEMOGLOBIN 10.1 g/dL (12.0-18.0); LYMPH # 0.6 K/uL (1.0-4.3); LYMPH % 2.4 % (20.0-40.0); MEAN CELL VOLUME 88.8 fL (80.0-94.0); MEAN CORPUSCULAR HEMOGLOBIN 29.7 pg (27.0-31.0); MEAN CORPUSCULAR HGB CONC 33.5 g/dL (33.0-37.0); MEAN PLATELET VOLUME 9.7 fL (7.2-11.7); MONO # 1.2 K/uL (0.0-0.8); MONO % 5.5 % (0.0-10.0); NEUT # 20.8 K/uL (1.8-7.0); NEUT % 91.6 % (50.0-75.0); PLATELET COUNT 190 K/uL (130-400); RBC 3.41 Mil/uL (4.40-5.90); RED CELL DISTRIBUTION WIDTH 18.5 % (11.5-14.5); WHITE BLOOD COUNT 22.7 K/uL (4.8-10.8)
[2017-08-15 07:12] LABS: ALB/GLOB RATIO 0.5 (1.0-2.1); ALBUMIN 2.2 g/dL (3.5-5.0); CALCIUM 8.1 mg/dl (8.6-10.4); MAGNESIUM 1.8 mg/dL (1.6-2.3)
[2017-08-15] MEDS ORDERED: Magnesium Sulfate 1 gm in D5W 1 GM/100 ML BAG IVPB ONE (07:46)
[2017-08-15 08:09] LABS: BANDS 51 % (0-2); EOSINOPHIL 2 % (0-4); LYMPHOCYTE 2 % (20-40); MONOCYTE 10 % (0-10); NEUTROPHIL 35 % (50-75); TOTAL CELLS COUNTED 100
[2017-08-15 08:10] LABS: ANISOCYTOSIS SLIGHT; HYPOCHROMIC SLIGHT; PLATELET ESTIMATE NORMAL (NORMAL); POLYCHROMIC SLIGHT
[2017-08-15 08:11] LABS: TEARDROP CELLS SLIGHT
[2017-08-15 09:24] LABS: FUNCTIONING PLTS 82 K/uL; PLT BASE COUNT 160 K/uL; PLT(ADP) 78 K/uL
--- NOTE | 2017-08-15 09:34 | RAD ---
HISTORY: Intubation COMPARISON: 08/14/2017 FINDINGS: There has been interval tracheostomy. The nasogastric tube terminates in the distal esophagus. The right PICC line terminates in the SVC LUNGS: There is no change in right lower lobe consolidation. Again seen is severe pulmonary venous congestion. PLEURA: No change in bilateral pleural effusions, larger on the right with loculation along the right lateral chest wall. No pneumothorax. CARDIOVASCULAR: There is persistent moderate cardiomegaly with prominent central vasculature. Atherosclerotic aortic arch calcifications are present. OSSEOUS STRUCTURES: No significant abnormalities. VISUALIZED UPPER ABDOMEN: Normal. OTHER FINDINGS: None. IMPRESSION: No significant interval change in right lower lobe consolidation, bilateral pleural effusions, larger and loculated on the right. Interval tracheostomy.
[2017-08-15] MEDS ORDERED: Meropenem 500 MG in Sodium Chloride 0.9% 100 ML IVPB SCH (10:00)
--- NOTE | 2017-08-15 10:23 | CP.CCUPN ---
<Dino Rosales - Last Filed: 08/15/17 11:41> CCU Subjective - Physician Review Subjective (Free Text): 08/15/17 10:21 patient seen and examined at bedside intubated yesterday hypotensive despite fluid resusc, started pressors Xray shows very dense infiltrate, most likely PNA on iv rx requires 100 fio2 will follow xray and ABG CCU Objective - Vital Signs / Intake & Output Vital Signs (Last 4 hours): Vital Signs Pulse Resp BP Pulse Ox 08/15/17 08:00 86 22 100 08/15/17 07:53 86 22 94/23 L 100 08/15/17 07:38 88 22 105/15 L 100 08/15/17 07:23 90 19 111/31 L 98 08/15/17 07:08 89 21 94/25 L 98 08/15/17 07:00 91 H 21 98 08/15/17 06:53 91 H 22 94/27 L 98 08/15/17 06:39 89 22 87/24 L 96 08/15/17 06:23 87 22 96/14 L 98 Intake and Output (Last 8hrs): Intake & Output 08/14/17 08/15/17 08/15/17 22:59 06:59 14:59 Intake Total 1411 1682.2 106.3 Balance 1411 1682.2 106.3 Weight 175 lb 14.862 oz Intake: IV 254 479 Intake, IV Amount 1157 1203.2 106.3 Right Distal Port 407 553.2 56.3 Right PICC 750 650 50 Other: # Bowel Movements 1 - Medications Active Medications: Active Medications Generic Name Dose Route Start Last Admin Trade Name Freq PRN Reason Stop Dose Admin Acetaminophen 120 mg 08/14/17 04:10 08/14/17 04:20 Tylenol 120mg Supp [place] 120 mg Q6 PRN Administration Fever >100.4 F Albuterol/Ipratropium 3 ml 08/11/17 02:00 08/15/17 07:26 Duoneb 3 Mg/0.5 Mg (3 Ml) Ud INH 3 ml RQ6 BAYLEE Administration Aspirin 81 mg 08/11/17 10:00 08/14/17 11:00 Aspirin Chewable PO Not Given DAILY BAYLEE Carvedilol 6.25 mg 08/11/17 10:00 08/14/17 19:56 Coreg PO Not Given BID [facility] Clopidogrel Bisulfate 75 mg 08/11/17 10:00 08/14/17 11:00 Plavix PO Not Given DAILY [facility] Docusate Sodium 100 mg 08/10/17 20:10 Colace PO BID PRN Constipation Famotidine 20 mg 08/11/17 10:00 08/14/17 17:51 Pepcid IVP 20 mg DAILY B[facility]E Administration Heparin Sodium (Porcine) 5,000 units 08/10/17 22:00 08/14/17 22:53 Heparin SC Not Given Q12 [facility] Norepinephrine Bitartrate 4 mg 254 mls @ 15.24 mls/hr 08/14/17 18:21 06:17 / Dextrose IV 15 mcg/min .[id number] PRN 57.15 mls/hr TITRATE PER MD ORDER Administration Protocol 4 MCG/MIN Meropenem 500 mg/ Sodium 100 mls @ 100 mls/hr 08/15/17 10:00 Chloride IVPB Q8H [facility] Insulin Aspart 0 unit 08/10/17 21:00 08/15/17 04:40 Novolog SC Not Given Q4H [facility] Protocol Rosuvastatin Calcium 2.5 mg 08/11/17 22:00 08/14/17 22:57 Crestor PO 2.5 mg HS B[facility]E Administration Sucralfate 1 gm 08/10/17 20:15 08/15/17 08:35 Carafate Oral Susp NG 1 gm Q6H [facility]E Administration Vitamin A 4 ea 08/13/17 18:00 08/14/17 17:54 Vitamin A & D Oint Ud Foilpak TOP 4 ea BID [facility]E Administration - Patient Studies Lab Studies: Microbiology Studies 08/10/17 21:00 Blood Culture - Preliminary Blood NO GROWTH AFTER 4 DAYS 08/10/17 20:30 Blood Culture - Preliminary Blood NO GROWTH AFTER 4 DAYS 08/10/17 Unknown Gram Stain - Final Trachasp Sputum Culture - Final Pseudomonas Aeruginosa Lab Studies 08/15/17 08/15/17 08/15/17 Range/Units 09:00 06:40 06:29 WBC 22.7 H (4.8-10.8) K/uL RBC 3.41 L (4.40-5.90) Mil/uL Hgb 10.1 L (12.0-18.0) g/dL Hct 30.3 L (35.0-51.0) % MCV 88.8 (80.0-94.0) fL MCH 29.7 (27.0-31.0) pg MCHC 33.5 (33.0-37.0) g/dL RDW 18.5 H (11.5-14.5) % Plt Count 190 (130-400) K/uL MPV 9.7 (7.2-11.7) fL Neut % (Auto) 91.6 H (50.0-75.0) % Lymph % (Auto) 2.4 L (20.0-40.0) % [place] % (Auto) 5.5 (0.0-10.0) % Eos % (Auto) 0.2 (0.0-4.0) % Baso % (Auto) 0.3 (0.0-2.0) % Neut # (Auto) 20.8 H (1.8-7.0) K/uL Lymph # (Auto) 0.6 L (1.0-4.3) K/uL [place] # (Auto) 1.2 H (0.0-0.8) K/uL Eos # (Auto) 0.0 (0.0-0.7) K/uL Baso # (Auto) 0.1 (0.0-0.2) K/uL Neutrophils % (Manual) 35 L (50-75) % Band Neutrophils % 51 H* (0-2) % Lymphocytes % (Manual) 2 L (20-40) % Monocytes % (Manual) 10 (0-10) % Eosinophils % (Manual) 2 (0-4) % Platelet Estimate Normal (NORMAL) Large Platelets Polychromasia Slight Hypochromasia (manual) Slight Poikilocytosis (manual Anisocytosis (manual) Slight Tear Drop Cells Slight Plt Function Assay 82 K/uL Puncture Site pCO2 (35-45) mm/Hg pO2 (80-100) mm/Hg HCO3 (21-28) mmol/L ABG pH (7.35-7.45) ABG Total CO2 (22-28) mmol/L ABG O2 Saturation (95-98) % ABG Base Excess (-2.0-3.0) mmol/L ABG Hemoglobin (11.7-17.4) g/dL ABG Carboxyhemoglobin (0.5-1.5) % POC ABG HHb (Measured) (0.0-5.0) % ABG Methemoglobin (0.0-3.0) % Juan Test A-a O2 Difference mm/Hg Respiratory Index Hgb O2 Saturation (95.0-98.0) % Vent Mode Mechanical Rate FiO2 % Tidal Volume PEEP Sodium 131 L (132-148) mmol/L Potassium 3.6 (3.6-5.2) mmol/L Chloride 97 L (98-107) mmol/L Carbon Dioxide 27 (22-30) mmol/L Anion Gap 11 (10-20) BUN 21 H (9-20) mg/dL Creatinine 2.8 H (0.8-1.5) mg/dL Est GFR ( Amer) 28 Est GFR (Non-Af Amer) 23 POC Glucose (mg/dL) (65-110) mg/dL Random Glucose 99 (75-110) mg/dL Calcium 8.1 L (8.6-10.4) mg/dl Phosphorus 3.0 (2.5-4.5) mg/dL Magnesium 1.8 (1.6-2.3) mg/dL Total Bilirubin 1.2 (0.2-1.3) mg/dL AST 23 (17-59) U/L ALT 7 L D (21-72) U/L Alkaline Phosphatase 148 H (38-126) U/L Total Protein 6.7 (6.3-8.3) g/dL Albumin 2.2 L (3.5-5.0) g/dL Globulin 4.5 H (2.2-3.9) gm/dL Albumin/Globulin Ratio 0.5 L (1.0-2.1) Blood Type Antibody Screen 08/15/17 08/15/17 08/14/17 Range/Units 05:15 03:37 21:23 WBC (4.8-10.8) K/uL RBC (4.40-5.90) Mil/uL Hgb (12.0-18.0) g/dL Hct (35.0-51.0) % MCV (80.0-94.0) fL MCH (27.0-31.0) pg MCHC (33.0-37.0) g/dL RDW (11.5-14.5) % Plt Count (130-400) K/uL MPV (7.2-11.7) fL Neut % (Auto) (50.0-75.0) % Lymph % (Auto) (20.0-40.0) % [place] % (Auto) (0.0-10.0) % Eos % (Auto) (0.0-4.0) % Baso % (Auto) (0.0-2.0) % Neut # (Auto) (1.8-7.0) K/uL Lymph # (Auto) (1.0-4.3) K/uL [place] # (Auto) (0.0-0.8) K/uL Eos # (Auto) (0.0-0.7) K/uL Baso # (Auto) (0.0-0.2) K/uL Neutrophils % (Manual) (50-75) % Band Neutrophils % (0-2) % Lymphocytes % (Manual) (20-40) % Monocytes % (Manual) (0-10) % Eosinophils % (Manual) (0-4) % Platelet Estimate (NORMAL) Large Platelets Polychromasia Hypochromasia (manual) Poikilocytosis (manual Anisocytosis (manual) Tear Drop Cells Plt Function Assay K/uL Puncture Site R bra pCO2 45 (35-45) mm/Hg pO2 50 L (80-100) mm/Hg HCO3 25.6 (21-28) mmol/L ABG pH 7.38 (7.35-7.45) ABG Total CO2 28.0 (22-28) mmol/L ABG O2 Saturation 90.3 L (95-98) % ABG Base Excess 1.1 (-2.0-3.0) mmol/L ABG Hemoglobin 10.7 L (11.7-17.4) g/dL ABG Carboxyhemoglobin 3.4 H (0.5-1.5) % POC ABG HHb (Measured) 9.2 H (0.0-5.0) % ABG Methemoglobin 1.3 (0.0-3.0) % Juan Test Na A-a O2 Difference 215.0 mm/Hg Respiratory Index 4.3 Hgb O2 Saturation 86.1 L (95.0-98.0) % Vent Mode Prvc Mechanical Rate 22 FiO2 45.0 % Tidal Volume 450 PEEP 5 Sodium 132 (132-148) mmol/L Potassium 3.5 L (3.6-5.2) mmol/L Chloride 98 (98-107) mmol/L Carbon Dioxide 28 (22-30) mmol/L Anion Gap 10 (10-20) BUN 19 (9-20) mg/dL Creatinine 2.5 H (0.8-1.5) mg/dL Est GFR ( Amer) 32 Est GFR (Non-Af Amer) 26 POC Glucose (mg/dL) 95 (65-110) mg/dL Random Glucose 69 L (75-110) mg/dL Calcium 7.9 L (8.6-10.4) mg/dl Phosphorus (2.5-4.5) mg/dL Magnesium (1.6-2.3) mg/dL Total Bilirubin (0.2-1.3) mg/dL AST (17-59) U/L ALT (21-72) U/L Alkaline Phosphatase (38-126) U/L Total Protein (6.3-8.3) g/dL Albumin (3.5-5.0) g/dL Globulin (2.2-3.9) gm/dL Albumin/Globulin Ratio (1.0-2.1) Blood Type Antibody Screen 08/14/17 08/14/17 08/14/17 Range/Units 21:23 19:57 16:12 WBC 15.4 H D (4.8-10.8) K/uL RBC 3.79 L (4.40-5.90) Mil/uL Hgb 11.2 L D (12.0-18.0) g/dL Hct 33.9 L (35.0-51.0) % MCV 89.4 (80.0-94.0) fL MCH 29.6 (27.0-31.0) pg MCHC 33.1 (33.0-37.0) g/dL RDW 18.7 H (11.5-14.5) % Plt Count 188 (130-400) K/uL MPV 8.9 (7.2-11.7) fL Neut % (Auto) 93.1 H (50.0-75.0) % Lymph % (Auto) 2.1 L (20.0-40.0) % [place] % (Auto) 3.6 (0.0-10.0) % Eos % (Auto) 1.1 (0.0-4.0) % Baso % (Auto) 0.1 (0.0-2.0) % Neut # (Auto) 14.4 H (1.8-7.0) K/uL Lymph # (Auto) 0.3 L (1.0-4.3) K/uL [place] # (Auto) 0.6 (0.0-0.8) K/uL Eos # (Auto) 0.2 (0.0-0.7) K/uL Baso # (Auto) 0.0 (0.0-0.2) K/uL Neutrophils % (Manual) 43 L (50-75) % Band Neutrophils % 49 H* (0-2) % Lymphocytes % (Manual) 1 L (20-40) % Monocytes % (Manual) 5 (0-10) % Eosinophils % (Manual) 2 (0-4) % Platelet Estimate Normal (NORMAL) Large Platelets Present Polychromasia Hypochromasia (manual) Slight Poikilocytosis (manual Slight Anisocytosis (manual) Slight Tear Drop Cells Plt Function Assay K/uL Puncture Site pCO2 (35-45) mm/Hg pO2 (80-100) mm/Hg HCO3 (21-28) mmol/L ABG pH (7.35-7.45) ABG Total CO2 (22-28) mmol/L ABG O2 Saturation (95-98) % ABG Base Excess (-2.0-3.0) mmol/L ABG Hemoglobin (11.7-17.4) g/dL ABG Carboxyhemoglobin (0.5-1.5) % POC ABG HHb (Measured) (0.0-5.0) % ABG Methemoglobin (0.0-3.0) % Juan Test A-a O2 Difference mm/Hg Respiratory Index Hgb O2 Saturation (95.0-98.0) % Vent Mode Mechanical Rate FiO2 % Tidal Volume PEEP Sodium (132-148) mmol/L Potassium (3.6-5.2) mmol/L Chloride (98-107) mmol/L Carbon Dioxide (22-30) mmol/L Anion Gap (10-20) BUN (9-20) mg/dL Creatinine (0.8-1.5) mg/dL Est GFR ( Amer) Est GFR (Non-Af Amer) POC Glucose (mg/dL) 72 97 (65-110) mg/dL Random Glucose (75-110) mg/dL Calcium (8.6-10.4) mg/dl Phosphorus (2.5-4.5) mg/dL Magnesium (1.6-2.3) mg/dL Total Bilirubin (0.2-1.3) mg/dL AST (17-59) U/L ALT (21-72) U/L Alkaline Phosphatase (38-126) U/L Total Protein (6.3-8.3) g/dL Albumin (3.5-5.0) g/dL Globulin (2.2-3.9) gm/dL Albumin/Globulin Ratio (1.0-2.1) Blood Type Antibody Screen 08/14/17 08/14/17 Range/Units 14:08 09:28 WBC (4.8-10.8) K/uL RBC (4.40-5.90) Mil/uL Hgb (12.0-18.0) g/dL Hct (35.0-51.0) % MCV (80.0-94.0) fL MCH (27.0-31.0) pg MCHC (33.0-37.0) g/dL RDW (11.5-14.5) % Plt Count (130-400) K/uL MPV (7.2-11.7) fL Neut % (Auto) (50.0-75.0) % Lymph % (Auto) (20.0-40.0) % [place] % (Auto) (0.0-10.0) % Eos % (Auto) (0.0-4.0) % Baso % (Auto) (0.0-2.0) % Neut # (Auto) (1.8-7.0) K/uL Lymph # (Auto) (1.0-4.3) K/uL [place] # (Auto) (0.0-0.8) K/uL Eos # (Auto) (0.0-0.7) K/uL Baso # (Auto) (0.0-0.2) K/uL Neutrophils % (Manual) (50-75) % Band Neutrophils % (0-2) % Lymphocytes % (Manual) (20-40) % Monocytes % (Manual) (0-10) % Eosinophils % (Manual) (0-4) % Platelet Estimate (NORMAL) Large Platelets Polychromasia Hypochromasia (manual) Poikilocytosis (manual Anisocytosis (manual) Tear Drop Cells Plt Function Assay K/uL Puncture Site pCO2 (35-45) mm/Hg pO2 (80-100) mm/Hg HCO3 (21-28) mmol/L ABG pH (7.35-7.45) ABG Total CO2 (22-28) mmol/L ABG O2 Saturation (95-98) % ABG Base Excess (-2.0-3.0) mmol/L ABG Hemoglobin (11.7-17.4) g/dL ABG Carboxyhemoglobin (0.5-1.5) % POC ABG HHb (Measured) (0.0-5.0) % ABG Methemoglobin (0.0-3.0) % Juan Test A-a O2 Difference mm/Hg Respiratory Index Hgb O2 Saturation (95.0-98.0) % Vent Mode Mechanical Rate FiO2 % Tidal Volume PEEP Sodium (132-148) mmol/L Potassium (3.6-5.2) mmol/L Chloride (98-107) mmol/L Carbon Dioxide (22-30) mmol/L Anion Gap (10-20) BUN (9-20) mg/dL Creatinine (0.8-1.5) mg/dL Est GFR ( Amer) Est GFR (Non-Af Amer) POC Glucose (mg/dL) 99 (65-110) mg/dL Random Glucose (75-110) mg/dL Calcium (8.6-10.4) mg/dl Phosphorus (2.5-4.5) mg/dL Magnesium (1.6-2.3) mg/dL Total Bilirubin (0.2-1.3) mg/dL AST (17-59) U/L ALT (21-72) U/L Alkaline Phosphatase (38-126) U/L Total Protein (6.3-8.3) g/dL Albumin (3.5-5.0) g/dL Globulin (2.2-3.9) gm/dL Albumin/Globulin Ratio (1.0-2.1) Blood Type B POSITIVE Antibody Screen Negative Laboratory Results - last 24 hr 08/14/17 08/14/17 08/14/17 09:28 14:08 16:12 WBC RBC Hgb Hct MCV MCH MCHC RDW Plt Count MPV Neut % (Auto) Lymph % (Auto) [place] % (Auto) Eos % (Auto) Baso % (Auto) Neut # (Auto) Lymph # (Auto) [place] # (Auto) Eos # (Auto) Baso # (Auto) Neutrophils % (Manual) Band Neutrophils % Lymphocytes % (Manual) Monocytes % (Manual) Eosinophils % (Manual) Platelet Estimate Large Platelets Polychromasia Hypochromasia (manual) Poikilocytosis (manual Anisocytosis (manual) Tear Drop Cells Plt Function Assay Puncture Site pCO2 pO2 HCO3 ABG pH ABG Total CO2 ABG O2 Saturation ABG Base Excess ABG Hemoglobin ABG Carboxyhemoglobin POC ABG HHb (Measured) ABG Methemoglobin Juan Test A-a O2 Difference Respiratory Index Hgb O2 Saturation Vent Mode Mechanical Rate FiO2 Tidal Volume PEEP Sodium Potassium Chloride Carbon Dioxide Anion Gap BUN Creatinine Est GFR ( Amer) Est GFR (Non-Af Amer) POC Glucose (mg/dL) 99 97 Random Glucose Calcium Phosphorus Magnesium Total Bilirubin AST ALT Alkaline Phosphatase Total Protein Albumin Globulin Albumin/Globulin Ratio Blood Type B POSITIVE Antibody Screen Negative 08/14/17 08/14/17 08/14/17 19:57 21:23 21:23 WBC 15.4 H D RBC 3.79 L Hgb 11.2 L D Hct 33.9 L MCV 89.4 MCH 29.6 MCHC 33.1 RDW 18.7 H Plt Count 188 MPV 8.9 Neut % (Auto) 93.1 H Lymph % (Auto) 2.1 L [place] % (Auto) 3.6 Eos % (Auto) 1.1 Baso % (Auto) 0.1 Neut # (Auto) 14.4 H Lymph # (Auto) 0.3 L [place] # (Auto) 0.6 Eos # (Auto) 0.2 Baso # (Auto) 0.0 Neutrophils % (Manual) 43 L Band Neutrophils % 49 H* Lymphocytes % (Manual) 1 L Monocytes % (Manual) 5 Eosinophils % (Manual) 2 Platelet Estimate Normal Large Platelets Present Polychromasia Hypochromasia (manual) Slight Poikilocytosis (manual Slight Anisocytosis (manual) Slight Tear Drop Cells Plt Function Assay Puncture Site pCO2 pO2 HCO3 ABG pH ABG Total CO2 ABG O2 Saturation ABG Base Excess ABG Hemoglobin ABG Carboxyhemoglobin POC ABG HHb (Measured) ABG Methemoglobin Juan Test A-a O2 Difference Respiratory Index Hgb O2 Saturation Vent Mode Mechanical Rate FiO2 Tidal Volume PEEP Sodium 132 Potassium 3.5 L Chloride 98 Carbon Dioxide 28 Anion Gap 10 BUN 19 Creatinine 2.5 H Est GFR ( Amer) 32 Est GFR (Non-Af Amer) 26 POC Glucose (mg/dL) 72 Random Glucose 69 L Calcium 7.9 L Phosphorus Magnesium Total Bilirubin AST ALT Alkaline Phosphatase Total Protein Albumin Globulin Albumin/Globulin Ratio Blood Type Antibody Screen 08/15/17 08/15/17 08/15/17 03:37 05:15 06:29 WBC RBC Hgb Hct MCV MCH MCHC RDW Plt Count MPV Neut % (Auto) Lymph % (Auto) [place] % (Auto) Eos % (Auto) Baso % (Auto) Neut # (Auto) Lymph # (Auto) [place] # (Auto) Eos # (Auto) Baso # (Auto) Neutrophils % (Manual) Band Neutrophils % Lymphocytes % (Manual) Monocytes % (Manual) Eosinophils % (Manual) Platelet Estimate Large Platelets Polychromasia Hypochromasia (manual) Poikilocytosis (manual Anisocytosis (manual) Tear Drop Cells Plt Function Assay Puncture Site R bra pCO2 45 pO2 50 L HCO3 25.6 ABG pH 7.38 ABG Total CO2 28.0 ABG O2 Saturation 90.3 L ABG Base Excess 1.1 ABG Hemoglobin 10.7 L ABG Carboxyhemoglobin 3.4 H POC ABG HHb (Measured) 9.2 H ABG Methemoglobin 1.3 Juan Test Na A-a O2 Difference 215.0 Respiratory Index 4.3 Hgb O2 Saturation 86.1 L Vent Mode Prvc Mechanical Rate 22 FiO2 45.0 Tidal Volume 450 PEEP 5 Sodium 131 L Potassium 3.6 Chloride 97 L Carbon Dioxide 27 Anion Gap 11 BUN 21 H Creatinine 2.8 H Est GFR ( Amer) 28 Est GFR (Non-Af Amer) 23 POC Glucose (mg/dL) 95 Random Glucose 99 Calcium 8.1 L Phosphorus 3.0 Magnesium 1.8 Total Bilirubin 1.2 AST 23 ALT 7 L D Alkaline Phosphatase 148 H Total Protein 6.7 Albumin 2.2 L Globulin 4.5 H Albumin/Globulin Ratio 0.5 L Blood Type Antibody Screen 08/15/17 08/15/17 06:40 09:00 WBC 22.7 H RBC 3.41 L Hgb 10.1 L Hct 30.3 L MCV 88.8 MCH 29.7 MCHC 33.5 RDW 18.5 H Plt Count 190 MPV 9.7 Neut % (Auto) 91.6 H Lymph % (Auto) 2.4 L [place] % (Auto) 5.5 Eos % (Auto) 0.2 Baso % (Auto) 0.3 Neut # (Auto) 20.8 H Lymph # (Auto) 0.6 L [place] # (Auto) 1.2 H Eos # (Auto) 0.0 Baso # (Auto) 0.1 Neutrophils % (Manual) 35 L Band Neutrophils % 51 H* Lymphocytes % (Manual) 2 L Monocytes % (Manual) 10 Eosinophils % (Manual) 2 Platelet Estimate Normal Large Platelets Polychromasia Slight Hypochromasia (manual) Slight Poikilocytosis (manual Anisocytosis (manual) Slight Tear Drop Cells Slight Plt Function Assay 82 Puncture Site pCO2 pO2 HCO3 ABG pH ABG Total CO2 ABG O2 Saturation ABG Base Excess ABG Hemoglobin ABG Carboxyhemoglobin POC ABG HHb (Measured) ABG Methemoglobin Juan Test A-a O2 Difference Respiratory Index Hgb O2 Saturation Vent Mode Mechanical Rate FiO2 Tidal Volume PEEP Sodium Potassium Chloride Carbon Dioxide Anion Gap BUN Creatinine Est GFR ( Amer) Est GFR (Non-Af Amer) POC Glucose (mg/dL) Random Glucose Calcium Phosphorus Magnesium Total Bilirubin AST ALT Alkaline Phosphatase Total Protein Albumin Globulin Albumin/Globulin Ratio Blood Type Antibody Screen Fingerstick Blood Sugar Results: 95 Critical Care Progress Note - Nutrition Nutrition: Nutrition Category Date Time Status NPO Diet [DIET] Diets 08/13/17 Breakfast Active Assessment/Plan - Assessment and Plan (Free Text) Assessment: 62M trach, PNA Plan: Psych: no active problems Neuro: no active problems Cardio: CAD, HTN ASA 81mg QD - hold until after GI procedure Coreg 6.25 PO BID Plavix 75mg PO QD - hold until after GI procedure Rosuvastatin 2.5mg PO QHS Pulm: Respiratory failure s/p intubation, PNA, COPD, hypoxemia Psuedomonas + trach culture n 2/2/18 Primaxin meropenem vancomycin duoneb Tracheostomy placed yesterday Increase FiO2 to 100%, PEEP 5 reculture tracheal aspirations GI: Chronic Dysphagia ([place]) Possible G placement tomorrow with GI Sucrafalfate start tube feed Renal: ESRD ([place]) HD: T, Th, Sat urine culture Endo: IDDM, hypothyroidism ISS Electrolytes: hypomagnesemia, hypokalemia mag sulfate kdur Heme/Onc: reculture blood PPx: Pepcid 20 IVP QD Heparin 5,000 units SC QD <Luis Sweet S - Last Filed: 08/15/17 16:23> CCU Objective - Vital Signs / Intake & Output Vital Signs (Last 4 hours): Vital Signs Pulse Resp BP Pulse Ox 08/15/17 15:27 90 22 108/50 L 100 Intake and Output (Last 8hrs): Intake & Output 08/15/17 08/15/17 08/15/17 06:59 14:59 22:59 Intake Total 1682.2 260.3 100 Balance 1682.2 260.3 100 Weight 175 lb 14.862 oz Intake: IV 479 154 100 Intake, IV Amount 1203.2 106.3 Right Distal Port 553.2 56.3 Right PICC 650 50 - Medications Active Medications: Active Medications Generic Name Dose Route Start Last Admin Trade Name Freq PRN Reason Stop Dose Admin Acetaminophen 120 mg 08/14/17 04:10 08/14/17 04:20 Tylenol 120mg Supp [place] 120 mg Q6 PRN Administration Fever >100.4 F Albuterol/Ipratropium 3 ml 08/11/17 02:00 08/15/17 13:19 Duoneb 3 Mg/0.5 Mg (3 Ml) Ud INH 3 ml RQ6 BAYLEE Administration Aspirin 81 mg 08/11/17 10:00 08/14/17 11:00 Aspirin Chewable PO Not Given DAILY BAYLEE Carvedilol 6.25 mg 08/11/17 10:00 08/15/17 10:17 Coreg PO Not Given BID BAYLEE Clopidogrel Bisulfate 75 mg 08/11/17 10:00 08/14/17 11:00 Plavix PO Not Given DAILY BAYLEE Docusate Sodium 100 mg 08/10/17 20:10 Colace PO BID PRN Constipation Famotidine 20 mg 08/11/17 10:00 08/15/17 10:36 Pepcid IVP 20 mg DAILY BAYLEE Administration Heparin Sodium (Porcine) 5,000 units 08/10/17 22:00 08/15/17 10:36 Heparin SC 5,000 units Q12 BAYLEE Administration Norepinephrine Bitartrate 4 mg 254 mls @ 15.24 mls/hr 08/15/17 10:30 15:27 / Sodium Chloride IV 18 mcg/min .[id number] PRN 68.58 mls/hr TITRATE PER MD ORDER Administration Protocol 4 MCG/MIN Meropenem 500 mg/ Sodium 100 mls @ 100 mls/hr 08/15/17 13:15 08/15/17 14:03 Chloride IVPB 100 mls/hr Q12H BAYLEE Administration Vancomycin/Sodium Chloride 1 gm in 200 mls @ 133.333 mls/hr 08/17/17 09:00 Vancomycin 1 Gm/Ns 200 Ml IVPB 08/22/17 09:01 MWF BAYLEE Fluconazole 200 mls @ 100 mls/hr 08/15/17 14:00 08/15/17 15:24 Diflucan Iv 400mg/200ml Ns IVPB 100 mls/hr Q24H BAYLEE Administration Insulin Aspart 0 unit 08/10/17 21:00 08/15/17 13:51 Novolog SC Not Given Q4H [facility] Protocol Rosuvastatin Calcium 2.5 mg 08/11/17 22:00 08/14/17 22:57 Crestor PO 2.5 mg HS BAYLEE Administration Sucralfate 1 gm 08/10/17 20:15 08/15/17 14:00 Carafate Oral Susp NG 1 gm Q6H BAYLEE Administration Vitamin A 4 ea 08/13/17 18:00 08/15/17 10:37 Vitamin A & D Oint Ud Foilpak TOP 4 ea BID BAYLEE Administration - Patient Studies Lab Studies: Microbiology Studies 08/15/17 07:33 Gram Stain - Preliminary Trachasp 08/10/17 21:00 Blood Culture - Preliminary Blood NO GROWTH AFTER 4 DAYS 08/10/17 20:30 Blood Culture - Preliminary Blood NO GROWTH AFTER 4 DAYS 08/10/17 Unknown Gram Stain - Final Trachasp Sputum Culture - Final Pseudomonas Aeruginosa Lab Studies 08/15/17 08/15/17 08/15/17 Range/Units 16:14 13:25 11:22 WBC (4.8-10.8) K/uL RBC (4.40-5.90) Mil/uL Hgb (12.0-18.0) g/dL Hct (35.0-51.0) % MCV (80.0-94.0) fL MCH (27.0-31.0) pg MCHC (33.0-37.0) g/dL RDW (11.5-14.5) % Plt Count (130-400) K/uL MPV (7.2-11.7) fL Neut % (Auto) (50.0-75.0) % Lymph % (Auto) (20.0-40.0) % [place] % (Auto) (0.0-10.0) % Eos % (Auto) (0.0-4.0) % Baso % (Auto) (0.0-2.0) % Neut # (Auto) (1.8-7.0) K/uL Lymph # (Auto) (1.0-4.3) K/uL [place] # (Auto) (0.0-0.8) K/uL Eos # (Auto) (0.0-0.7) K/uL Baso # (Auto) (0.0-0.2) K/uL Neutrophils % (Manual) (50-75) % Band Neutrophils % (0-2) % Lymphocytes % (Manual) (20-40) % Monocytes % (Manual) (0-10) % Eosinophils % (Manual) (0-4) % Platelet Estimate (NORMAL) Large Platelets Polychromasia Hypochromasia (manual) Poikilocytosis (manual Anisocytosis (manual) Tear Drop Cells Plt Function Assay K/uL Puncture Site A line pCO2 42 (35-45) mm/Hg pO2 189 H (80-100) mm/Hg HCO3 25.8 (21-28) mmol/L ABG pH 7.40 (7.35-7.45) ABG Total CO2 27.3 (22-28) mmol/L ABG O2 Saturation 99.6 H (95-98) % ABG Base Excess 1.0 (-2.0-3.0) mmol/L ABG Hemoglobin (11.7-17.4) g/dL ABG Carboxyhemoglobin (0.5-1.5) % POC ABG HHb (Measured) (0.0-5.0) % ABG Methemoglobin (0.0-3.0) % Juan Test Na ABG Potassium 3.7 (3.6-5.2) mmol/L A-a O2 Difference 472.0 mm/Hg Respiratory Index 2.5 Hgb O2 Saturation (95.0-98.0) % Glucose 111 H (75-110) mg/dl Lactate 1.2 (0.7-2.1) mmol/L Vent Mode Prvc Mechanical Rate 22 FiO2 100.0 % Tidal Volume 450 PEEP 5 Sodium 132.0 (132-148) mmol/L Potassium (3.6-5.2) mmol/L Chloride 103.0 (98-107) mmol/L Carbon Dioxide (22-30) mmol/L Anion Gap (10-20) BUN (9-20) mg/dL Creatinine (0.8-1.5) mg/dL Est GFR ( Amer) Est GFR (Non-Af Amer) POC Glucose (mg/dL) 120 H 100 (65-110) mg/dL Random Glucose (75-110) mg/dL Calcium (8.6-10.4) mg/dl Phosphorus (2.5-4.5) mg/dL Magnesium (1.6-2.3) mg/dL Total Bilirubin (0.2-1.3) mg/dL AST (17-59) U/L ALT (21-72) U/L Alkaline Phosphatase (38-126) U/L Total Protein (6.3-8.3) g/dL Albumin (3.5-5.0) g/dL Globulin (2.2-3.9) gm/dL Albumin/Globulin Ratio (1.0-2.1) Arterial Blood Potassium 3.7 (3.6-5.2) mmol/L 08/15/17 08/15/17 08/15/17 Range/Units 09:00 06:40 06:29 WBC 22.7 H (4.8-10.8) K/uL RBC 3.41 L (4.40-5.90) Mil/uL Hgb 10.1 L (12.0-18.0) g/dL Hct 30.3 L (35.0-51.0) % MCV 88.8 (80.0-94.0) fL MCH 29.7 (27.0-31.0) pg MCHC 33.5 (33.0-37.0) g/dL RDW 18.5 H (11.5-14.5) % Plt Count 190 (130-400) K/uL MPV 9.7 (7.2-11.7) fL Neut % (Auto) 91.6 H (50.0-75.0) % Lymph % (Auto) 2.4 L (20.0-40.0) % [place] % (Auto) 5.5 (0.0-10.0) % Eos % (Auto) 0.2 (0.0-4.0) % Baso % (Auto) 0.3 (0.0-2.0) % Neut # (Auto) 20.8 H (1.8-7.0) K/uL Lymph # (Auto) 0.6 L (1.0-4.3) K/uL [place] # (Auto) 1.2 H (0.0-0.8) K/uL Eos # (Auto) 0.0 (0.0-0.7) K/uL Baso # (Auto) 0.1 (0.0-0.2) K/uL Neutrophils % (Manual) 35 L (50-75) % Band Neutrophils % 51 H* (0-2) % Lymphocytes % (Manual) 2 L (20-40) % Monocytes % (Manual) 10 (0-10) % Eosinophils % (Manual) 2 (0-4) % Platelet Estimate Normal (NORMAL) Large Platelets Polychromasia Slight Hypochromasia (manual) Slight Poikilocytosis (manual Anisocytosis (manual) Slight Tear Drop Cells Slight Plt Function Assay 82 K/uL Puncture Site pCO2 (35-45) mm/Hg pO2 (80-100) mm/Hg HCO3 (21-28) mmol/L ABG pH (7.35-7.45) ABG Total CO2 (22-28) mmol/L ABG O2 Saturation (95-98) % ABG Base Excess (-2.0-3.0) mmol/L ABG Hemoglobin (11.7-17.4) g/dL ABG Carboxyhemoglobin (0.5-1.5) % POC ABG HHb (Measured) (0.0-5.0) % ABG Methemoglobin (0.0-3.0) % Juan Test ABG Potassium (3.6-5.2) mmol/L A-a O2 Difference mm/Hg Respiratory Index Hgb O2 Saturation (95.0-98.0) % Glucose (75-110) mg/dl Lactate (0.7-2.1) mmol/L Vent Mode Mechanical Rate FiO2 % Tidal Volume PEEP Sodium 131 L (132-148) mmol/L Potassium 3.6 (3.6-5.2) mmol/L Chloride 97 L (98-107) mmol/L Carbon Dioxide 27 (22-30) mmol/L Anion Gap 11 (10-20) BUN 21 H (9-20) mg/dL Creatinine 2.8 H (0.8-1.5) mg/dL Est GFR ( Amer) 28 Est GFR (Non-Af Amer) 23 POC Glucose (mg/dL) (65-110) mg/dL Random Glucose 99 (75-110) mg/dL Calcium 8.1 L (8.6-10.4) mg/dl Phosphorus 3.0 (2.5-4.5) mg/dL Magnesium 1.8 (1.6-2.3) mg/dL Total Bilirubin 1.2 (0.2-1.3) mg/dL AST 23 (17-59) U/L ALT 7 L D (21-72) U/L Alkaline Phosphatase 148 H (38-126) U/L Total Protein 6.7 (6.3-8.3) g/dL Albumin 2.2 L (3.5-5.0) g/dL Globulin 4.5 H (2.2-3.9) gm/dL Albumin/Globulin Ratio 0.5 L (1.0-2.1) Arterial Blood Potassium (3.6-5.2) mmol/L 08/15/17 08/15/17 08/14/17 Range/Units 05:15 03:37 21:23 WBC (4.8-10.8) K/uL RBC (4.40-5.90) Mil/uL Hgb (12.0-18.0) g/dL Hct (35.0-51.0) % MCV (80.0-94.0) fL MCH (27.0-31.0) pg MCHC (33.0-37.0) g/dL RDW (11.5-14.5) % Plt Count (130-400) K/uL MPV (7.2-11.7) fL Neut % (Auto) (50.0-75.0) % Lymph % (Auto) (20.0-40.0) % [place] % (Auto) (0.0-10.0) % Eos % (Auto) (0.0-4.0) % Baso % (Auto) (0.0-2.0) % Neut # (Auto) (1.8-7.0) K/uL Lymph # (Auto) (1.0-4.3) K/uL [place] # (Auto) (0.0-0.8) K/uL Eos # (Auto) (0.0-0.7) K/uL Baso # (Auto) (0.0-0.2) K/uL Neutrophils % (Manual) (50-75) % Band Neutrophils % (0-2) % Lymphocytes % (Manual) (20-40) % Monocytes % (Manual) (0-10) % Eosinophils % (Manual) (0-4) % Platelet Estimate (NORMAL) Large Platelets Polychromasia Hypochromasia (manual) Poikilocytosis (manual Anisocytosis (manual) Tear Drop Cells Plt Function Assay K/uL Puncture Site R bra pCO2 45 (35-45) mm/Hg pO2 50 L (80-100) mm/Hg HCO3 25.6 (21-28) mmol/L ABG pH 7.38 (7.35-7.45) ABG Total CO2 28.0 (22-28) mmol/L ABG O2 Saturation 90.3 L (95-98) % ABG Base Excess 1.1 (-2.0-3.0) mmol/L ABG Hemoglobin 10.7 L (11.7-17.4) g/dL ABG Carboxyhemoglobin 3.4 H (0.5-1.5) % POC ABG HHb (Measured) 9.2 H (0.0-5.0) % ABG Methemoglobin 1.3 (0.0-3.0) % Juan Test Na ABG Potassium (3.6-5.2) mmol/L A-a O2 Difference 215.0 mm/Hg Respiratory Index 4.3 Hgb O2 Saturation 86.1 L (95.0-98.0) % Glucose (75-110) mg/dl Lactate (0.7-2.1) mmol/L Vent Mode Prvc Mechanical Rate 22 FiO2 45.0 % Tidal Volume 450 PEEP 5 Sodium 132 (132-148) mmol/L Potassium 3.5 L (3.6-5.2) mmol/L Chloride 98 (98-107) mmol/L Carbon Dioxide 28 (22-30) mmol/L Anion Gap 10 (10-20) BUN 19 (9-20) mg/dL Creatinine 2.5 H (0.8-1.5) mg/dL Est GFR ( Amer) 32 Est GFR (Non-Af Amer) 26 POC Glucose (mg/dL) 95 (65-110) mg/dL Random Glucose 69 L (75-110) mg/dL Calcium 7.9 L (8.6-10.4) mg/dl Phosphorus (2.5-4.5) mg/dL Magnesium (1.6-2.3) mg/dL Total Bilirubin (0.2-1.3) mg/dL AST (17-59) U/L ALT (21-72) U/L Alkaline Phosphatase (38-126) U/L Total Protein (6.3-8.3) g/dL Albumin (3.5-5.0) g/dL Globulin (2.2-3.9) gm/dL Albumin/Globulin Ratio (1.0-2.1) Arterial Blood Potassium (3.6-5.2) mmol/L 08/14/17 08/14/17 Range/Units 21:23 19:57 WBC 15.4 H D (4.8-10.8) K/uL RBC 3.79 L (4.40-5.90) Mil/uL Hgb 11.2 L D (12.0-18.0) g/dL Hct 33.9 L (35.0-51.0) % MCV 89.4 (80.0-94.0) fL MCH 29.6 (27.0-31.0) pg MCHC 33.1 (33.0-37.0) g/dL RDW 18.7 H (11.5-14.5) % Plt Count 188 (130-400) K/uL MPV 8.9 (7.2-11.7) fL Neut % (Auto) 93.1 H (50.0-75.0) % Lymph % (Auto) 2.1 L (20.0-40.0) % [place] % (Auto) 3.6 (0.0-10.0) % Eos % (Auto) 1.1 (0.0-4.0) % Baso % (Auto) 0.1 (0.0-2.0) % Neut # (Auto) 14.4 H (1.8-7.0) K/uL Lymph # (Auto) 0.3 L (1.0-4.3) K/uL [place] # (Auto) 0.6 (0.0-0.8) K/uL Eos # (Auto) 0.2 (0.0-0.7) K/uL Baso # (Auto) 0.0 (0.0-0.2) K/uL Neutrophils % (Manual) 43 L (50-75) % Band Neutrophils % 49 H* (0-2) % Lymphocytes % (Manual) 1 L (20-40) % Monocytes % (Manual) 5 (0-10) % Eosinophils % (Manual) 2 (0-4) % Platelet Estimate Normal (NORMAL) Large Platelets Present Polychromasia Hypochromasia (manual) Slight Poikilocytosis (manual Slight Anisocytosis (manual) Slight Tear Drop Cells Plt Function Assay K/uL Puncture Site pCO2 (35-45) mm/Hg pO2 (80-100) mm/Hg HCO3 (21-28) mmol/L ABG pH (7.35-7.45) ABG Total CO2 (22-28) mmol/L ABG O2 Saturation (95-98) % ABG Base Excess (-2.0-3.0) mmol/L ABG Hemoglobin (11.7-17.4) g/dL ABG Carboxyhemoglobin (0.5-1.5) % POC ABG HHb (Measured) (0.0-5.0) % ABG Methemoglobin (0.0-3.0) % Juan Test ABG Potassium (3.6-5.2) mmol/L A-a O2 Difference mm/Hg Respiratory Index Hgb O2 Saturation (95.0-98.0) % Glucose (75-110) mg/dl Lactate (0.7-2.1) mmol/L Vent Mode Mechanical Rate FiO2 % Tidal Volume PEEP Sodium (132-148) mmol/L Potassium (3.6-5.2) mmol/L Chloride (98-107) mmol/L Carbon Dioxide (22-30) mmol/L Anion Gap (10-20) BUN (9-20) mg/dL Creatinine (0.8-1.5) mg/dL Est GFR ( Amer) Est GFR (Non-Af Amer) POC Glucose (mg/dL) 72 (65-110) mg/dL Random Glucose (75-110) mg/dL Calcium (8.6-10.4) mg/dl Phosphorus (2.5-4.5) mg/dL Magnesium (1.6-2.3) mg/dL Total Bilirubin (0.2-1.3) mg/dL AST (17-59) U/L ALT (21-72) U/L Alkaline Phosphatase (38-126) U/L Total Protein (6.3-8.3) g/dL Albumin (3.5-5.0) g/dL Globulin (2.2-3.9) gm/dL Albumin/Globulin Ratio (1.0-2.1) Arterial Blood Potassium (3.6-5.2) mmol/L Laboratory Results - last 24 hr 08/14/17 08/14/17 08/14/17 19:57 21:23 21:23 WBC 15.4 H D RBC 3.79 L Hgb 11.2 L D Hct 33.9 L MCV 89.4 MCH 29.6 MCHC 33.1 RDW 18.7 H Plt Count 188 MPV 8.9 Neut % (Auto) 93.1 H Lymph % (Auto) 2.1 L [place] % (Auto) 3.6 Eos % (Auto) 1.1 Baso % (Auto) 0.1 Neut # (Auto) 14.4 H Lymph # (Auto) 0.3 L [place] # (Auto) 0.6 Eos # (Auto) 0.2 Baso # (Auto) 0.0 Neutrophils % (Manual) 43 L Band Neutrophils % 49 H* Lymphocytes % (Manual) 1 L Monocytes % (Manual) 5 Eosinophils % (Manual) 2 Platelet Estimate Normal Large Platelets Present Polychromasia Hypochromasia (manual) Slight Poikilocytosis (manual Slight Anisocytosis (manual) Slight Tear Drop Cells Plt Function Assay Puncture Site pCO2 pO2 HCO3 ABG pH ABG Total CO2 ABG O2 Saturation ABG Base Excess ABG Hemoglobin ABG Carboxyhemoglobin POC ABG HHb (Measured) ABG Methemoglobin Juan Test ABG Potassium A-a O2 Difference Respiratory Index Hgb O2 Saturation Glucose Lactate Vent Mode Mechanical Rate FiO2 Tidal Volume PEEP Sodium 132 Potassium 3.5 L Chloride 98 Carbon Dioxide 28 Anion Gap 10 BUN 19 Creatinine 2.5 H Est GFR ( Amer) 32 Est GFR (Non-Af Amer) 26 POC Glucose (mg/dL) 72 Random Glucose 69 L Calcium 7.9 L Phosphorus Magnesium Total Bilirubin AST ALT Alkaline Phosphatase Total Protein Albumin Globulin Albumin/Globulin Ratio Arterial Blood Potassium 08/15/17 08/15/17 08/15/17 03:37 05:15 06:29 WBC RBC Hgb Hct MCV MCH MCHC RDW Plt Count MPV Neut % (Auto) Lymph % (Auto) [place] % (Auto) Eos % (Auto) Baso % (Auto) Neut # (Auto) Lymph # (Auto) [place] # (Auto) Eos # (Auto) Baso # (Auto) Neutrophils % (Manual) Band Neutrophils % Lymphocytes % (Manual) Monocytes % (Manual) Eosinophils % (Manual) Platelet Estimate Large Platelets Polychromasia Hypochromasia (manual) Poikilocytosis (manual Anisocytosis (manual) Tear Drop Cells Plt Function Assay Puncture Site R bra pCO2 45 pO2 50 L HCO3 25.6 ABG pH 7.38 ABG Total CO2 28.0 ABG O2 Saturation 90.3 L ABG Base Excess 1.1 ABG Hemoglobin 10.7 L ABG Carboxyhemoglobin 3.4 H POC ABG HHb (Measured) 9.2 H ABG Methemoglobin 1.3 Juan Test Na ABG Potassium A-a O2 Difference 215.0 Respiratory Index 4.3 Hgb O2 Saturation 86.1 L Glucose Lactate Vent Mode Prvc Mechanical Rate 22 FiO2 45.0 Tidal Volume 450 PEEP 5 Sodium 131 L Potassium 3.6 Chloride 97 L Carbon Dioxide 27 Anion Gap 11 BUN 21 H Creatinine 2.8 H Est GFR ( Amer) 28 Est GFR (Non-Af Amer) 23 POC Glucose (mg/dL) 95 Random Glucose 99 Calcium 8.1 L Phosphorus 3.0 Magnesium 1.8 Total Bilirubin 1.2 AST 23 ALT 7 L D Alkaline Phosphatase 148 H Total Protein 6.7 Albumin 2.2 L Globulin 4.5 H Albumin/Globulin Ratio 0.5 L Arterial Blood Potassium 08/15/17 08/15/17 08/15/17 06:40 09:00 11:22 WBC 22.7 H RBC 3.41 L Hgb 10.1 L Hct 30.3 L MCV 88.8 MCH 29.7 MCHC 33.5 RDW 18.5 H Plt Count 190 MPV 9.7 Neut % (Auto) 91.6 H Lymph % (Auto) 2.4 L [place] % (Auto) 5.5 Eos % (Auto) 0.2 Baso % (Auto) 0.3 Neut # (Auto) 20.8 H Lymph # (Auto) 0.6 L [place] # (Auto) 1.2 H Eos # (Auto) 0.0 Baso # (Auto) 0.1 Neutrophils % (Manual) 35 L Band Neutrophils % 51 H* Lymphocytes % (Manual) 2 L Monocytes % (Manual) 10 Eosinophils % (Manual) 2 Platelet Estimate Normal Large Platelets Polychromasia Slight Hypochromasia (manual) Slight Poikilocytosis (manual Anisocytosis (manual) Slight Tear Drop Cells Slight Plt Function Assay 82 Puncture Site pCO2 pO2 HCO3 ABG pH ABG Total CO2 ABG O2 Saturation ABG Base Excess ABG Hemoglobin ABG Carboxyhemoglobin POC ABG HHb (Measured) ABG Methemoglobin Juan Test ABG Potassium A-a O2 Difference Respiratory Index Hgb O2 Saturation Glucose Lactate Vent Mode Mechanical Rate FiO2 Tidal Volume PEEP Sodium Potassium Chloride Carbon Dioxide Anion Gap BUN Creatinine Est GFR ( Amer) Est GFR (Non-Af Amer) POC Glucose (mg/dL) 100 Random Glucose Calcium Phosphorus Magnesium Total Bilirubin AST ALT Alkaline Phosphatase Total Protein Albumin Globulin Albumin/Globulin Ratio Arterial Blood Potassium 08/15/17 08/15/17 13:25 16:14 WBC RBC Hgb Hct MCV MCH MCHC RDW Plt Count MPV Neut % (Auto) Lymph % (Auto) [place] % (Auto) Eos % (Auto) Baso % (Auto) Neut # (Auto) Lymph # (Auto) [place] # (Auto) Eos # (Auto) Baso # (Auto) Neutrophils % (Manual) Band Neutrophils % Lymphocytes % (Manual) Monocytes % (Manual) Eosinophils % (Manual) Platelet Estimate Large Platelets Polychromasia Hypochromasia (manual) Poikilocytosis (manual Anisocytosis (manual) Tear Drop Cells Plt Function Assay Puncture Site A line pCO2 42 pO2 189 H HCO3 25.8 ABG pH 7.40 ABG Total CO2 27.3 ABG O2 Saturation 99.6 H ABG Base Excess 1.0 ABG Hemoglobin ABG Carboxyhemoglobin POC ABG HHb (Measured) ABG Methemoglobin Juan Test Na ABG Potassium 3.7 A-a O2 Difference 472.0 Respiratory Index 2.5 Hgb O2 Saturation Glucose 111 H Lactate 1.2 Vent Mode Prvc Mechanical Rate 22 FiO2 100.0 Tidal Volume 450 PEEP 5 Sodium 132.0 Potassium Chloride 103.0 Carbon Dioxide Anion Gap BUN Creatinine Est GFR ( Amer) Est GFR (Non-Af Amer) POC Glucose (mg/dL) 120 H Random Glucose Calcium Phosphorus Magnesium Total Bilirubin AST ALT Alkaline Phosphatase Total Protein Albumin Globulin Albumin/Globulin Ratio Arterial Blood Potassium 3.7 Critical Care Progress Note - Nutrition Nutrition: Nutrition Category Date Time Status NPO Diet [DIET] Diets 08/13/17 Breakfast Active Attending/Attestation - Attestation I have personally seen and examined this patient.: Yes I have fully participated in the care of the patient.: Yes I have reviewed all pertinent clinical information: Yes Notes (Text): 08/15/17 16:21 Patient seen and examined in the intensive care unit. Case discussed with house staff in the morning rounds. Patient became hypotensive post tracheostomy Started on levophed yesterday and now at max dose Worsening infiltrate right lower lobe with elevated white count and bands 51 ID evaluation Continue meropenem, fluconazole and vancomycin Continue hemodialysis FiO2 100% on ventilatory support
[2017-08-15] MEDS: Vitamins A & D Oint UD Foilpak TOP SCH ×2 (10:37→17:03)
--- NOTE | 2017-08-15 11:54 | CP.PCM.PN ---
Subjective - Date & Time of Evaluation Date of Evaluation: 08/15/17 Time of Evaluation: 07:15 - Subjective Subjective: Surgery- Dr. Deshpande Pt s&e at bedside this AM. Pt was placed on pressors overnight due to hypotension. on PRVC. Trach site c/d/i and in place. Objective - Vital Signs/Intake and Output Vital Signs (last 24 hours): Temp Pulse Resp BP Pulse Ox 101 F H 86 22 94/23 L 100 08/15/17 04:00 08/15/17 08:00 08/15/17 08:00 08/15/17 07:53 08/15/17 08:00 Intake and Output: 08/15/17 08/15/17 06:59 18:59 Intake Total 2286.2 106.3 Balance 2286.2 106.3 - Medications Medications: Current Medications Acetaminophen (Tylenol 120mg Supp) 120 mg CO Q6 PRN PRN Reason: Fever >100.4 F Last Admin: 08/14/17 04:20 Dose: 120 mg Albuterol/Ipratropium (Duoneb 3 Mg/0.5 Mg (3 Ml) Ud) 3 ml INH RQ6 [facility] Last Admin: 08/15/17 07:26 Dose: 3 ml Aspirin (Aspirin Chewable) 81 mg PO DAILY [facility] Last Admin: 08/14/17 11:00 Dose: Not Given Carvedilol (Coreg) 6.25 mg PO BID [facility] Last Admin: 08/15/17 10:17 Dose: Not Given Clopidogrel Bisulfate (Plavix) 75 mg PO DAILY [facility] Last Admin: 08/14/17 11:00 Dose: Not Given Docusate Sodium (Colace) 100 mg PO BID PRN PRN Reason: Constipation Famotidine (Pepcid) 20 mg IVP DAILY [facility] Last Admin: 08/15/17 10:36 Dose: 20 mg Heparin Sodium (Porcine) (Heparin) 5,000 units SC Q12 [facility] Last Admin: 08/15/17 10:36 Dose: 5,000 units Meropenem 500 mg/ Sodium (Chloride) 100 mls @ 100 mls/hr IVPB Q8H [facility] Last Admin: 08/15/17 10:36 Dose: 100 mls/hr Norepinephrine Bitartrate 4 mg (/ Sodium Chloride) 254 mls @ 15.24 mls/hr IV .[id number] PRN; Protocol; 4 MCG/MIN PRN Reason: TITRATE PER MD ORDER Insulin Aspart (Novolog) 0 unit SC Q4H [facility] PRN Reason: Protocol Last Admin: 08/15/17 10:18 Dose: Not Given Rosuvastatin Calcium (Crestor) 2.5 mg PO HS [facility] Last Admin: 08/14/17 22:57 Dose: 2.5 mg Sucralfate (Carafate Oral Susp) 1 gm NG Q6H [facility] Last Admin: 08/15/17 08:35 Dose: 1 gm Vitamin A (Vitamin A & D Oint Ud Foilpak) 4 ea TOP BID [facility] Last Admin: 08/15/17 10:37 Dose: 4 ea - Labs Labs: 08/15/17 06:40 08/15/17 06:29 PT 13.1 SECONDS (9.7-12.2) H 08/10/17 21:21 INR 1.2 08/10/17 21:21 APTT 46 SECONDS (21-34) H 08/10/17 21:21 - Constitutional Appears: Non-toxic, Chronically Ill - Eye Exam Eye Exam: EOMI. absent: Scleral icterus - ENT Exam ENT Exam: Mucous Membranes Moist - Respiratory Exam Respiratory Exam: absent: Accessory Muscle Use, Respiratory Distress Additional comments: on PRVC - Cardiovascular Exam Cardiovascular Exam: +S1, +S2. absent: Bradycardia, Tachycardia - GI/Abdominal Exam GI & Abdominal Exam: Soft. absent: Distended, Firm, Guarding, Rigid, Tenderness - Extremities Exam Extremities Exam: Pedal Edema - Skin Skin Exam: Warm Assessment and Plan - Assessment and Plan (Free Text) Assessment: 62M s/p percutaneous tracheostomy POD#1 Plan: - Trach in good place - will remove sutures in 10days - Medical management per primary and ICU team - further recs per Dr. Charlee Mcnair PGY1
--- NOTE | 2017-08-15 13:17 | CP.PCM.PN ---
Subjective - Date & Time of Evaluation Date of Evaluation: 08/15/17 Time of Evaluation: 11:40 - Subjective Subjective: clinically same Objective - Vital Signs/Intake and Output Vital Signs (last 24 hours): Temp Pulse Resp BP Pulse Ox 101 F H 86 22 90/28 L 100 08/15/17 04:00 08/15/17 08:00 08/15/17 11:00 08/15/17 11:00 08/15/17 11:00 Intake and Output: 08/15/17 08/15/17 06:59 18:59 Intake Total 2286.2 106.3 Balance 2286.2 106.3 - Medications Medications: Current Medications Acetaminophen (Tylenol 120mg Supp) 120 mg RI Q6 PRN PRN Reason: Fever >100.4 F Last Admin: 08/14/17 04:20 Dose: 120 mg Albuterol/Ipratropium (Duoneb 3 Mg/0.5 Mg (3 Ml) Ud) 3 ml INH RQ6 [facility] Last Admin: 08/15/17 07:26 Dose: 3 ml Aspirin (Aspirin Chewable) 81 mg PO DAILY [facility] Last Admin: 08/14/17 11:00 Dose: Not Given Carvedilol (Coreg) 6.25 mg PO BID [facility] Last Admin: 08/15/17 10:17 Dose: Not Given Clopidogrel Bisulfate (Plavix) 75 mg PO DAILY [facility] Last Admin: 08/14/17 11:00 Dose: Not Given Docusate Sodium (Colace) 100 mg PO BID PRN PRN Reason: Constipation Famotidine (Pepcid) 20 mg IVP DAILY [facility] Last Admin: 08/15/17 10:36 Dose: 20 mg Heparin Sodium (Porcine) (Heparin) 5,000 units SC Q12 [facility] Last Admin: 08/15/17 10:36 Dose: 5,000 units Norepinephrine Bitartrate 4 mg (/ Sodium Chloride) 254 mls @ 15.24 mls/hr IV .[id number] PRN; Protocol; 4 MCG/MIN PRN Reason: TITRATE PER MD ORDER Last Admin: 08/15/17 11:00 Dose: 20 mcg/min, 76.2 mls/hr Meropenem 500 mg/ Sodium (Chloride) 100 mls @ 100 mls/hr IVPB Q12H [facility] Vancomycin/Sodium Chloride (Vancomycin 1 Gm/Ns 200 Ml) 1 gm in 200 mls @ 133.333 mls/hr IVPB MWF [facility] Stop: 08/22/17 09:01 Fluconazole (Diflucan Iv 400mg/200ml Ns) 200 mls @ 100 mls/hr IVPB Q24H [facility] Insulin Aspart (Novolog) 0 unit SC Q4H [facility] PRN Reason: Protocol Last Admin: 08/15/17 10:18 Dose: Not Given Rosuvastatin Calcium (Crestor) 2.5 mg PO HS [facility] Last Admin: 08/14/17 22:57 Dose: 2.5 mg Sucralfate (Carafate Oral Susp) 1 gm NG Q6H [facility] Last Admin: 08/15/17 08:35 Dose: 1 gm Vitamin A (Vitamin A & D Oint Ud Foilpak) 4 ea TOP BID [facility] Last Admin: 08/15/17 10:37 Dose: 4 ea - Labs Labs: 08/15/17 06:40 08/15/17 06:29 PT 13.1 SECONDS (9.7-12.2) H 08/10/17 21:21 INR 1.2 08/10/17 21:21 APTT 46 SECONDS (21-34) H 08/10/17 21:21 - Constitutional Appears: Well - Head Exam Head Exam: ATRAUMATIC, NORMAL INSPECTION, NORMOCEPHALIC - Eye Exam Eye Exam: EOMI, Normal appearance, PERRL Pupil Exam: NORMAL ACCOMODATION, PERRL - ENT Exam ENT Exam: Mucous Membranes Moist, Normal Exam - Neck Exam Neck Exam: Full ROM, Normal Inspection. absent: Lymphadenopathy - Respiratory Exam Respiratory Exam: Decreased Breath Sounds - Cardiovascular Exam Cardiovascular Exam: REGULAR RHYTHM, +S1, +S2 - GI/Abdominal Exam GI & Abdominal Exam: Soft, Diminished Bowel Sounds - Rectal Exam Rectal Exam: Deferred
[2017-08-15 13:28] LABS: ARTERIAL BLOOD GAS HCO3 25.8 mmol/L (21-28); ARTERIAL BLOOD GAS O2 SAT 99.6 % (95-98); ARTERIAL BLOOD GAS PCO2 42 mm/Hg (35-45); ARTERIAL BLOOD GAS PO2 189 mm/Hg (80-100); ARTERIAL BLOOD GAS TCO2 27.3 mmol/L (22-28)
[2017-08-15] MEDS: Meropenem 500 MG in Sodium Chloride 0.9% 100 ML IVPB SCH (14:03)
[2017-08-15] MEDS: Fluconazole IV 400mg/200ml NS 200 ML IVPB SCH (15:24)
--- NOTE | 2017-08-15 17:22 | PCM.PROC ---
Procedures Attestation:: I certify that I have explained the specified Operation(s) or Procedure(s), risks, benefits and reasonable alternatives to the Patient and/or other person responsible. The opportunity was given to ask questions and all questions answered - Arterial Line Right Femoral Aseptic technique was employed throughout the procedure: Hand Hygiene done prior to procedure, Full sterile barriers (mask, hair cover, sterile gown, sterile gloves), Full body sterile drape, Chloraprep Antiseptic: 2 minute prep for Femoral Time Out Performed: Yes Pt. placed on Pulse Ox Monitor: Yes Central Line Prep: Povidone-Iodine 1% Local Anesthesia Used: Lidocaine 1% Ultrasound Used for Placement: No Gauge (Size): 20 gauge Technique Used: Guide Wire Technique Secured by: Suture Post procedure dressing: Gauze, Clear vapor permeable, Chlorhexidine disc ( Biopatch) Patient Tolerated Procedure: well Immediate Complications: none
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
--- NOTE | 2017-08-15 17:45 | CP.PCM.PN ---
Subjective - Date & Time of Evaluation Date of Evaluation: 08/15/17 Time of Evaluation: 17:44 - Subjective Subjective: Mental status is unchanged. Patient developed hypotension last night, and repeat WBC count is up to 22.7 wit 51% bands. Objective - Vital Signs/Intake and Output Vital Signs (last 24 hours): Temp Pulse Resp BP Pulse Ox 101.4 F H 90 22 108/50 L 100 08/15/17 17:01 08/15/17 15:27 08/15/17 15:27 08/15/17 15:27 08/15/17 15:27 Intake and Output: 08/15/17 08/15/17 06:59 18:59 Intake Total 2286.2 360.3 Balance 2286.2 360.3 - Medications Medications: Current Medications Acetaminophen (Tylenol 120mg Supp) 120 mg [place] Q6 PRN PRN Reason: Fever >100.4 F Last Admin: 08/15/17 17:01 Dose: 120 mg Albuterol/Ipratropium (Duoneb 3 Mg/0.5 Mg (3 Ml) Ud) 3 ml INH RQ6 [facility] Last Admin: 08/15/17 13:19 Dose: 3 ml Aspirin (Aspirin Chewable) 81 mg PO DAILY [facility] Last Admin: 08/14/17 11:00 Dose: Not Given Carvedilol (Coreg) 6.25 mg PO BID [facility] Last Admin: 08/15/17 17:02 Dose: Not Given Clopidogrel Bisulfate (Plavix) 75 mg PO DAILY [facility] Last Admin: 08/14/17 11:00 Dose: Not Given Docusate Sodium (Colace) 100 mg PO BID PRN PRN Reason: Constipation Famotidine (Pepcid) 20 mg IVP DAILY [facility] Last Admin: 08/15/17 10:36 Dose: 20 mg Heparin Sodium (Porcine) (Heparin) 5,000 units SC Q12 [facility] Last Admin: 08/15/17 10:36 Dose: 5,000 units Norepinephrine Bitartrate 4 mg (/ Sodium Chloride) 254 mls @ 15.24 mls/hr IV .[id number] PRN; Protocol; 4 MCG/MIN PRN Reason: TITRATE PER MD ORDER Last Admin: 08/15/17 15:27 Dose: 18 mcg/min, 68.58 mls/hr Meropenem 500 mg/ Sodium (Chloride) 100 mls @ 100 mls/hr IVPB Q12H [facility] Last Admin: 08/15/17 14:03 Dose: 100 mls/hr Vancomycin/Sodium Chloride (Vancomycin 1 Gm/Ns 200 Ml) 1 gm in 200 mls @ 133.333 mls/hr IVPB MWF [facility] Stop: 08/22/17 09:01 Fluconazole (Diflucan Iv 400mg/200ml Ns) 200 mls @ 100 mls/hr IVPB Q24H [facility] Last Admin: 08/15/17 15:24 Dose: 100 mls/hr Insulin Aspart (Novolog) 0 unit SC Q4H [facility] PRN Reason: Protocol Last Admin: 08/15/17 17:02 Dose: Not Given Rosuvastatin Calcium (Crestor) 2.5 mg PO HS [facility] Last Admin: 08/14/17 22:57 Dose: 2.5 mg Sucralfate (Carafate Oral Susp) 1 gm NG Q6H [facility] Last Admin: 08/15/17 14:00 Dose: 1 gm Vitamin A (Vitamin A & D Oint Ud Foilpak) 4 ea TOP BID [facility] Last Admin: 08/15/17 17:03 Dose: 4 ea - Labs Labs: 08/15/17 06:40 08/15/17 06:29 PT 13.1 SECONDS (9.7-12.2) H 08/10/17 21:21 INR 1.2 08/10/17 21:21 APTT 46 SECONDS (21-34) H 08/10/17 21:21 - Head Exam Head Exam: ATRAUMATIC, NORMOCEPHALIC - Eye Exam Eye Exam: EOMI, PERRL - Neck Exam Neck Exam: absent: Lymphadenopathy, Thyromegaly - Respiratory Exam Respiratory Exam: NORMAL BREATHING PATTERN. absent: Rales, Rhonchi, Wheezes - Cardiovascular Exam Cardiovascular Exam: REGULAR RHYTHM, +S1, +S2. absent: Gallop, Rubs, Murmur - GI/Abdominal Exam GI & Abdominal Exam: Soft, Normal Bowel Sounds. absent: Tenderness, Mass, Organomegaly - Rectal Exam Rectal Exam: Deferred - Extremities Exam Extremities Exam: absent: Calf Tenderness, Pedal Edema Assessment and Plan (1) Dysphagia Assessment & Plan: PEG will be postponed due to hypotension, leukocytosis. Plan for next week if stable. Status: Acute
--- NOTE | 2017-08-15 20:09 | CP.PCM.PN ---
Subjective - Date & Time of Evaluation Date of Evaluation: 08/15/17 Time of Evaluation: 20:09 Objective - Vital Signs/Intake and Output Vital Signs (last 24 hours): Temp Pulse Resp BP Pulse Ox 101.0 F H 84 22 106/47 L 100 08/15/17 18:01 08/15/17 20:04 08/15/17 20:04 08/15/17 20:04 08/15/17 20:04 Intake and Output: 08/15/17 08/16/17 18:59 06:59 Intake Total 1666.7 321.5 Output Total 100 Balance 1566.7 321.5 - Medications Medications: Current Medications Acetaminophen (Tylenol 120mg Supp) 120 mg [place] Q6 PRN PRN Reason: Fever >100.4 F Last Admin: 08/15/17 17:01 Dose: 120 mg Albuterol/Ipratropium (Duoneb 3 Mg/0.5 Mg (3 Ml) Ud) 3 ml INH RQ6 [facility] Last Admin: 08/15/17 19:17 Dose: 3 ml Aspirin (Aspirin Chewable) 81 mg PO DAILY [facility] Last Admin: 08/14/17 11:00 Dose: Not Given Carvedilol (Coreg) 6.25 mg PO BID [facility] Last Admin: 08/15/17 17:02 Dose: Not Given Clopidogrel Bisulfate (Plavix) 75 mg PO DAILY [facility] Last Admin: 08/14/17 11:00 Dose: Not Given Docusate Sodium (Colace) 100 mg PO BID PRN PRN Reason: Constipation Famotidine (Pepcid) 20 mg IVP DAILY [facility] Last Admin: 08/15/17 10:36 Dose: 20 mg Heparin Sodium (Porcine) (Heparin) 5,000 units SC Q12 [facility] Last Admin: 08/15/17 10:36 Dose: 5,000 units Norepinephrine Bitartrate 4 mg (/ Sodium Chloride) 254 mls @ 15.24 mls/hr IV .[id number] PRN; Protocol; 4 MCG/MIN PRN Reason: TITRATE PER MD ORDER Last Admin: 08/15/17 20:04 Dose: 14.77 mcg/min, 56.3 mls/hr Meropenem 500 mg/ Sodium (Chloride) 100 mls @ 100 mls/hr IVPB Q12H [facility] Last Admin: 08/15/17 14:03 Dose: 100 mls/hr Vancomycin/Sodium Chloride (Vancomycin 1 Gm/Ns 200 Ml) 1 gm in 200 mls @ 133.333 mls/hr IVPB MWF [facility] Stop: 08/22/17 09:01 Fluconazole (Diflucan Iv 400mg/200ml Ns) 200 mls @ 100 mls/hr IVPB Q24H [facility] Last Admin: 08/15/17 15:24 Dose: 100 mls/hr Insulin Aspart (Novolog) 0 unit SC Q4H [facility] PRN Reason: Protocol Last Admin: 08/15/17 17:02 Dose: Not Given Rosuvastatin Calcium (Crestor) 2.5 mg PO HS [facility] Last Admin: 08/14/17 22:57 Dose: 2.5 mg Sucralfate (Carafate Oral Susp) 1 gm NG Q6H [facility] Last Admin: 08/15/17 20:03 Dose: Not Given Vitamin A (Vitamin A & D Oint Ud Foilpak) 4 ea TOP BID [facility] Last Admin: 08/15/17 17:03 Dose: 4 ea - Labs Labs: 08/15/17 06:40 08/15/17 06:29 PT 13.1 SECONDS (9.7-12.2) H 08/10/17 21:21 INR 1.2 08/10/17 21:21 APTT 46 SECONDS (21-34) H 08/10/17 21:21
[2017-08-15] MEDS: Rosuvastatin Calcium 2.5 mg Tab PO SCH (22:01)
--- NOTE | 2017-08-15 22:48 | CARD ---
APPROVED REPORT EKG Measurement Heart [id number] <Conclusion> Accelerated Junctional rhythm Can't r/o ectopic atrial rhythm Low voltage QRS ST & T wave abnormality, consider inferior ischemia Abnormal ECG
[2017-08-16] MEDS: (Novolog) Insulin Aspart, Recombinant 100 u/ml 10 ml vial SC SCH ×6 (01:11→20:29)
[2017-08-16] MEDS: Meropenem 500 MG in Sodium Chloride 0.9% 100 ML IVPB SCH ×2 (01:11→13:37)
[2017-08-16] MEDS: Albuterol-Ipratrop 3 mg / 0.5 (3 ml) UD INH SCH (01:26)
[2017-08-16] MEDS: Sucralfate 1 gm/10 ml Oral Susp UD NG SCH ×4 (02:10→20:33)
[2017-08-16] MEDS ORDERED: Dextrose 50% SYRINGE Inj (50 ml) IV STA ×3 (04:22→23:56)
[2017-08-16] MEDS ORDERED: Dextrose 50% VIAL Inj (50 ml) IV ONE ×3 (04:33→23:53)
[2017-08-16 06:37] LABS: BASO # 0.1 K/uL (0.0-0.2); BASO % 0.9 % (0.0-2.0); EOS # 0.6 K/uL (0.0-0.7); EOS % 3.6 % (0.0-4.0); HEMOGLOBIN 8.7 g/dL (12.0-18.0); LYMPH # 0.6 K/uL (1.0-4.3); LYMPH % 3.5 % (20.0-40.0); MEAN CELL VOLUME 88.1 fL (80.0-94.0); MEAN CORPUSCULAR HEMOGLOBIN 29.1 pg (27.0-31.0); MEAN PLATELET VOLUME 9.8 fL (7.2-11.7); MONO # 1.3 K/uL (0.0-0.8); MONO % 7.9 % (0.0-10.0); NEUT # 14.1 K/uL (1.8-7.0); NEUT % 84.1 % (50.0-75.0); PLATELET COUNT 109 K/uL (130-400); RBC 3.01 Mil/uL (4.40-5.90); RED CELL DISTRIBUTION WIDTH 19.1 % (11.5-14.5); WHITE BLOOD COUNT 16.8 K/uL (4.8-10.8)
[2017-08-16 07:00] LABS: ALB/GLOB RATIO 0.5 (1.0-2.1); ALBUMIN 2.1 g/dL (3.5-5.0); CALCIUM 8.5 mg/dl (8.6-10.4)
[2017-08-16 08:47] LABS: BANDS 34 % (0-2); EOSINOPHIL 1 % (0-4); TOTAL CELLS COUNTED 100
[2017-08-16 08:48] LABS: ANISOCYTOSIS SLIGHT; LYMPHOCYTE 2 % (20-40); MONOCYTE 6 % (0-10); NEUTROPHIL 57 % (50-75); PLATELET ESTIMATE SLIGHTLY DECREASED (NORMAL)
[2017-08-16 08:49] LABS: BURR CELLS SLIGHT; HYPOCHROMIC SLIGHT; LARGE PLATELETS PRESENT; POIKILOCYTOSIS SLIGHT; TARGET CELLS SLIGHT
[2017-08-16 08:50] LABS: POLYCHROMIC SLIGHT
[2017-08-16] MEDS: Vitamins A & D Oint UD Foilpak TOP SCH ×2 (09:46→18:22)
[2017-08-16] MEDS: Fluconazole IV 400mg/200ml NS 200 ML IVPB SCH (13:53)
--- NOTE | 2017-08-16 14:42 | CP.PCM.PN ---
Subjective - Date & Time of Evaluation Date of Evaluation: 08/16/17 Time of Evaluation: 14:40 - Subjective Subjective: Mental status is unchanged. He is unresponsive to verbal stimuli. Tracheostomy is in place. Objective - Vital Signs/Intake and Output Vital Signs (last 24 hours): Temp Pulse Resp BP Pulse Ox 98.1 F 73 22 98/46 L 100 08/16/17 12:50 08/16/17 12:50 08/16/17 12:50 08/16/17 12:50 08/16/17 12:50 Intake and Output: 08/16/17 08/16/17 06:59 18:59 Intake Total 1002.4 22.6 Output Total 50 Balance 952.4 22.6 - Medications Medications: Current Medications Acetaminophen (Tylenol 120mg Supp) 120 mg UT Q6 PRN PRN Reason: Fever >100.4 F Last Admin: 08/15/17 17:01 Dose: 120 mg Aspirin (Aspirin Chewable) 81 mg PO DAILY [facility] Last Admin: 08/14/17 11:00 Dose: Not Given Carvedilol (Coreg) 6.25 mg PO BID [facility] Last Admin: 08/16/17 09:44 Dose: Not Given Clopidogrel Bisulfate (Plavix) 75 mg PO DAILY [facility] Last Admin: 08/14/17 11:00 Dose: Not Given Docusate Sodium (Colace) 100 mg PO BID PRN PRN Reason: Constipation Famotidine (Pepcid) 20 mg IVP DAILY [facility] Last Admin: 08/16/17 13:51 Dose: 20 mg Heparin Sodium (Porcine) (Heparin) 5,000 units SC Q12 [facility] Last Admin: 08/16/17 13:49 Dose: 5,000 units Meropenem 500 mg/ Sodium (Chloride) 100 mls @ 100 mls/hr IVPB Q12H [facility] Last Admin: 08/16/17 13:37 Dose: 100 mls/hr Vancomycin/Sodium Chloride (Vancomycin 1 Gm/Ns 200 Ml) 1 gm in 200 mls @ 133.333 mls/hr IVPB MWF [facility] Stop: 08/22/17 09:01 Fluconazole (Diflucan Iv 400mg/200ml Ns) 200 mls @ 100 mls/hr IVPB Q24H [facility] Last Admin: 08/16/17 13:53 Dose: 100 mls/hr Norepinephrine Bitartrate 8 mg (/ Sodium Chloride) 258 mls @ 21.28 mls/hr IV .Q12H8M PRN; Protocol; 11 MCG/MIN PRN Reason: TITRATE PER MD ORDER Last Admin: 08/16/17 06:53 Dose: 5.83 mcg/min, 11.3 mls/hr Insulin Aspart (Novolog) 0 unit SC Q4H [facility] PRN Reason: Protocol Last Admin: 08/16/17 13:53 Dose: Not Given Rosuvastatin Calcium (Crestor) 2.5 mg PO HS [facility] Last Admin: 08/15/17 22:01 Dose: Not Given Sucralfate (Carafate Oral Susp) 1 gm NG Q6H [facility] Last Admin: 08/16/17 13:17 Dose: Not Given Vitamin A (Vitamin A & D Oint Ud Foilpak) 4 ea TOP BID [facility] Last Admin: 08/16/17 09:46 Dose: 4 ea - Labs Labs: 08/16/17 06:30 08/16/17 06:30 PT 13.1 SECONDS (9.7-12.2) H 08/10/17 21:21 INR 1.2 08/10/17 21:21 APTT 46 SECONDS (21-34) H 08/10/17 21:21 - Neck Exam Neck Exam: absent: Lymphadenopathy, Thyromegaly - Respiratory Exam Respiratory Exam: NORMAL BREATHING PATTERN. absent: Rales, Rhonchi, Wheezes - Cardiovascular Exam Cardiovascular Exam: REGULAR RHYTHM, +S1, +S2. absent: Gallop, Rubs, Murmur - GI/Abdominal Exam GI & Abdominal Exam: Soft, Normal Bowel Sounds. absent: Tenderness, Mass, Organomegaly - Rectal Exam Rectal Exam: Deferred - Extremities Exam Extremities Exam: absent: Calf Tenderness, Pedal Edema Assessment and Plan (1) Dysphagia Assessment & Plan: PEG is postponed secondary to septic shock, evidently due to pneumonia. Status: Acute
--- NOTE | 2017-08-16 17:44 | CP.CCUPN ---
<Dino Rosales - Last Filed: 08/16/17 17:44> CCU Subjective - Physician Review Subjective (Free Text): 08/16/17 17:44 Pt is a 62M who was a direct ICU admit from [facility] for Trach and PEG placement on 08/10/17. Trach was done on 08/14/[address] Deshpande. PEG today wit Dr. Chau was postponed due to hypotension and leukocytosis. Pt was febrile overnight up to 101.4F. Today pt remains minimally responsive. PMHx: ESRD, CAD s/p 2 stents. hypothyroid, CHF, HTN, COPD, IDDM, chronic dysphagia SHx: coronary stent x 2 Allergies: tetanus and diphtheria toxoids Family: none Social: none Psych: no active problems Cardio: CAD, HTN ASA 81mg QD - hold until after GI procedure Coreg 6.25 PO BID Plavix 75mg PO QD - hold until after GI procedure Rosuvastatin 2.5mg PO QHS Pulm: Respiratory failure s/p intubation, PNA, COPD, hypoxemia Psuedomonas + trach culture n 08/10/17 Primaxin meropenem vancomycin duoneb Tracheostomy placed yesterday FiO2 100%, PEEP 5, Tv , RR reculture tracheal aspirations GI: Chronic Dysphagia ([place]) G placement postponed until next week per GI Sucrafalfate Nephro tube feeds at 20cc/hr Renal: ESRD ([place]) HD: T, Th, Sat urine culture Endo: IDDM, hypothyroidism ISS Electrolytes: hypomagnesemia, hypokalemia mag sulfate kdur ID: Septic Shock gram neg rods in trach culture norephinephrine vanc/mena/diflucan Heme/Onc: blood culture neg PPx: Pepcid 20 IVP QD Heparin 5,000 units SC QD full code Next of kin: Lisa (daughter) CCU Objective - Vital Signs / Intake & Output Intake and Output (Last 8hrs): Intake & Output 08/16/17 08/16/17 08/16/17 06:59 14:59 22:59 Intake Total 519.5 22.6 Output Total 50 Balance 469.5 22.6 Weight 169 lb 6 oz Intake: IV 258 Intake, IV Amount 261.5 22.6 Right Distal Port 161.5 22.6 Right PICC 100 Output: Gastric Amount 50 Nares 50 Urine 0 Urine, Voided 0 Other: # Voids Urine, Voided 0 # Bowel Movements 1 - Medications Active Medications: Active Medications Generic Name Dose Route Start Last Admin Trade Name Freq PRN Reason Stop Dose Admin Acetaminophen 120 mg 08/14/17 04:10 08/15/17 17:01 Tylenol 120mg Supp [place] 120 mg Q6 PRN Administration Fever >100.4 F Aspirin 81 mg 08/11/17 10:00 08/14/17 11:00 Aspirin Chewable PO Not Given DAILY [facility] Carvedilol 6.25 mg 08/11/17 10:00 08/16/17 09:44 Coreg PO Not Given BID [facility] Clopidogrel Bisulfate 75 mg 08/11/17 10:00 08/14/17 11:00 Plavix PO Not Given DAILY [facility] Docusate Sodium 100 mg 08/10/17 20:10 Colace PO BID PRN Constipation Famotidine 20 mg 08/11/17 10:00 08/16/17 13:51 Pepcid IVP 20 mg DAILY [facility] Administration Heparin Sodium (Porcine) 5,000 units 08/10/17 22:00 08/16/17 13:49 Heparin SC 5,000 units Q12 [facility] Administration Meropenem 500 mg/ Sodium 100 mls @ 100 mls/hr 08/15/17 13:15 08/16/17 13:37 Chloride IVPB 100 mls/hr Q12H [facility] Administration Vancomycin/Sodium Chloride 1 gm in 200 mls @ 133.333 mls/hr 08/17/17 09:00 Vancomycin 1 Gm/Ns 200 Ml IVPB 08/22/17 09:01 MWF [facility] Fluconazole 200 mls @ 100 mls/hr 08/15/17 14:00 08/16/17 13:53 Diflucan Iv 400mg/200ml Ns IVPB 100 mls/hr Q24H [facility] Administration Norepinephrine Bitartrate 8 mg 258 mls @ 21.28 mls/hr 08/15/17 23:12 06:53 / Sodium Chloride IV 5.83 mcg/min .Q12H8M PRN 11.3 mls/hr TITRATE PER MD ORDER Administration Protocol 11 MCG/MIN Insulin Aspart 0 unit 08/10/17 21:00 08/16/17 13:53 Novolog SC Not Given Q4H [facility] Protocol Rosuvastatin Calcium 2.5 mg 08/11/17 22:00 08/15/17 22:01 Crestor PO Not Given HS [facility] Sucralfate 1 gm 08/10/17 20:15 08/16/17 13:17 Carafate Oral Susp NG Not Given Q6H [facility] Vitamin A 4 ea 08/13/17 18:00 08/16/17 09:46 Vitamin A & D Oint Ud Foilpak TOP 4 ea BID [facility] Administration - Patient Studies Lab Studies: Microbiology Studies 08/15/17 12:30 Blood Culture - Preliminary Blood NO GROWTH AFTER 24 HOURS 08/15/17 12:00 Blood Culture - Preliminary Blood NO GROWTH AFTER 24 HOURS 08/16/17 04:00 Gram Stain - Preliminary Trachasp 08/15/17 07:33 Gram Stain - Preliminary Trachasp Sputum Culture - Preliminary Gram Negative Giovanni 08/10/17 21:00 Blood Culture - Final Blood NO GROWTH AFTER 5 DAYS Gram Stain - Final TEST NOT PERFORMED 08/10/17 20:30 Blood Culture - Final Blood NO GROWTH AFTER 5 DAYS Gram Stain - Final TEST NOT PERFORMED Lab Studies 08/16/17 08/16/17 08/16/17 Range/Units 16:35 12:37 11:48 WBC (4.8-10.8) K/uL RBC (4.40-5.90) Mil/uL Hgb (12.0-18.0) g/dL Hct (35.0-51.0) % MCV (80.0-94.0) fL MCH (27.0-31.0) pg MCHC (33.0-37.0) g/dL RDW (11.5-14.5) % Plt Count (130-400) K/uL MPV (7.2-11.7) fL Neut % (Auto) (50.0-75.0) % Lymph % (Auto) (20.0-40.0) % [place] % (Auto) (0.0-10.0) % Eos % (Auto) (0.0-4.0) % Baso % (Auto) (0.0-2.0) % Neut # (Auto) (1.8-7.0) K/uL Lymph # (Auto) (1.0-4.3) K/uL [place] # (Auto) (0.0-0.8) K/uL Eos # (Auto) (0.0-0.7) K/uL Baso # (Auto) (0.0-0.2) K/uL Neutrophils % (Manual) (50-75) % Band Neutrophils % (0-2) % Lymphocytes % (Manual) (20-40) % Monocytes % (Manual) (0-10) % Eosinophils % (Manual) (0-4) % Platelet Estimate (NORMAL) Large Platelets Polychromasia Hypochromasia (manual) Poikilocytosis (manual Anisocytosis (manual) Target Cells Fenton Cells Sodium (132-148) mmol/L Potassium (3.6-5.2) mmol/L Chloride (98-107) mmol/L Carbon Dioxide (22-30) mmol/L Anion Gap (10-20) BUN (9-20) mg/dL Creatinine (0.8-1.5) mg/dL Est GFR ( Amer) Est GFR (Non-Af Amer) POC Glucose (mg/dL) 81 172 H 68 (65-110) mg/dL Random Glucose (75-110) mg/dL Calcium (8.6-10.4) mg/dl Magnesium (1.6-2.3) mg/dL Total Bilirubin (0.2-1.3) mg/dL AST (17-59) U/L ALT (21-72) U/L Alkaline Phosphatase (38-126) U/L Total Protein (6.3-8.3) g/dL Albumin (3.5-5.0) g/dL Globulin (2.2-3.9) gm/dL Albumin/Globulin Ratio (1.0-2.1) 08/16/17 08/16/17 08/16/17 Range/Units 11:47 08:33 06:30 WBC 16.8 H (4.8-10.8) K/uL RBC 3.01 L (4.40-5.90) Mil/uL Hgb 8.7 L (12.0-18.0) g/dL Hct 26.5 L (35.0-51.0) % MCV 88.1 (80.0-94.0) fL MCH 29.1 (27.0-31.0) pg MCHC 33.0 (33.0-37.0) g/dL RDW 19.1 H (11.5-14.5) % Plt Count 109 L D (130-400) K/uL MPV 9.8 (7.2-11.7) fL Neut % (Auto) 84.1 H (50.0-75.0) % Lymph % (Auto) 3.5 L (20.0-40.0) % [place] % (Auto) 7.9 (0.0-10.0) % Eos % (Auto) 3.6 (0.0-4.0) % Baso % (Auto) 0.9 (0.0-2.0) % Neut # (Auto) 14.1 H (1.8-7.0) K/uL Lymph # (Auto) 0.6 L (1.0-4.3) K/uL [place] # (Auto) 1.3 H (0.0-0.8) K/uL Eos # (Auto) 0.6 (0.0-0.7) K/uL Baso # (Auto) 0.1 (0.0-0.2) K/uL Neutrophils % (Manual) 57 (50-75) % Band Neutrophils % 34 H* (0-2) % Lymphocytes % (Manual) 2 L (20-40) % Monocytes % (Manual) 6 (0-10) % Eosinophils % (Manual) 1 (0-4) % Platelet Estimate Slightly decreased L (NORMAL) Large Platelets Present Polychromasia Slight Hypochromasia (manual) Slight Poikilocytosis (manual Slight Anisocytosis (manual) Slight Target Cells Slight Fenton Cells Slight Sodium (132-148) mmol/L Potassium (3.6-5.2) mmol/L Chloride (98-107) mmol/L Carbon Dioxide (22-30) mmol/L Anion Gap (10-20) BUN (9-20) mg/dL Creatinine (0.8-1.5) mg/dL Est GFR ( Amer) Est GFR (Non-Af Amer) POC Glucose (mg/dL) 65 79 (65-110) mg/dL Random Glucose (75-110) mg/dL Calcium (8.6-10.4) mg/dl Magnesium (1.6-2.3) mg/dL Total Bilirubin (0.2-1.3) mg/dL AST (17-59) U/L ALT (21-72) U/L Alkaline Phosphatase (38-126) U/L Total Protein (6.3-8.3) g/dL Albumin (3.5-5.0) g/dL Globulin (2.2-3.9) gm/dL Albumin/Globulin Ratio (1.0-2.1) 08/16/17 08/16/17 08/16/17 Range/Units 06:30 05:19 04:23 WBC (4.8-10.8) K/uL RBC (4.40-5.90) Mil/uL Hgb (12.0-18.0) g/dL Hct (35.0-51.0) % MCV (80.0-94.0) fL MCH (27.0-31.0) pg MCHC (33.0-37.0) g/dL RDW (11.5-14.5) % Plt Count (130-400) K/uL MPV (7.2-11.7) fL Neut % (Auto) (50.0-75.0) % Lymph % (Auto) (20.0-40.0) % [place] % (Auto) (0.0-10.0) % Eos % (Auto) (0.0-4.0) % Baso % (Auto) (0.0-2.0) % Neut # (Auto) (1.8-7.0) K/uL Lymph # (Auto) (1.0-4.3) K/uL [place] # (Auto) (0.0-0.8) K/uL Eos # (Auto) (0.0-0.7) K/uL Baso # (Auto) (0.0-0.2) K/uL Neutrophils % (Manual) (50-75) % Band Neutrophils % (0-2) % Lymphocytes % (Manual) (20-40) % Monocytes % (Manual) (0-10) % Eosinophils % (Manual) (0-4) % Platelet Estimate (NORMAL) Large Platelets Polychromasia Hypochromasia (manual) Poikilocytosis (manual Anisocytosis (manual) Target Cells Kay Cells Sodium 131 L (132-148) mmol/L Potassium 3.6 (3.6-5.2) mmol/L Chloride 98 (98-107) mmol/L Carbon Dioxide 24 (22-30) mmol/L Anion Gap 13 (10-20) BUN 27 H (9-20) mg/dL Creatinine 3.2 H (0.8-1.5) mg/dL Est GFR ( Amer) 24 Est GFR (Non-Af Amer) 20 POC Glucose (mg/dL) 108 66 (65-110) mg/dL Random Glucose 115 H (75-110) mg/dL Calcium 8.5 L (8.6-10.4) mg/dl Magnesium 2.0 (1.6-2.3) mg/dL Total Bilirubin 0.8 (0.2-1.3) mg/dL AST 17 D (17-59) U/L ALT 14 L D (21-72) U/L Alkaline Phosphatase 158 H (38-126) U/L Total Protein 6.2 L (6.3-8.3) g/dL Albumin 2.1 L (3.5-5.0) g/dL Globulin 4.2 H (2.2-3.9) gm/dL Albumin/Globulin Ratio 0.5 L (1.0-2.1) 08/16/17 08/15/17 08/15/17 Range/Units 04:21 23:46 19:45 WBC (4.8-10.8) K/uL RBC (4.40-5.90) Mil/uL Hgb (12.0-18.0) g/dL Hct (35.0-51.0) % MCV (80.0-94.0) fL MCH (27.0-31.0) pg MCHC (33.0-37.0) g/dL RDW (11.5-14.5) % Plt Count (130-400) K/uL MPV (7.2-11.7) fL Neut % (Auto) (50.0-75.0) % Lymph % (Auto) (20.0-40.0) % [place] % (Auto) (0.0-10.0) % Eos % (Auto) (0.0-4.0) % Baso % (Auto) (0.0-2.0) % Neut # (Auto) (1.8-7.0) K/uL Lymph # (Auto) (1.0-4.3) K/uL [place] # (Auto) (0.0-0.8) K/uL Eos # (Auto) (0.0-0.7) K/uL Baso # (Auto) (0.0-0.2) K/uL Neutrophils % (Manual) (50-75) % Band Neutrophils % (0-2) % Lymphocytes % (Manual) (20-40) % Monocytes % (Manual) (0-10) % Eosinophils % (Manual) (0-4) % Platelet Estimate (NORMAL) Large Platelets Polychromasia Hypochromasia (manual) Poikilocytosis (manual Anisocytosis (manual) Target Cells Fenton Cells Sodium (132-148) mmol/L Potassium (3.6-5.2) mmol/L Chloride (98-107) mmol/L Carbon Dioxide (22-30) mmol/L Anion Gap (10-20) BUN (9-20) mg/dL Creatinine (0.8-1.5) mg/dL Est GFR ( Amer) Est GFR (Non-Af Amer) POC Glucose (mg/dL) 64 L 71 88 (65-110) mg/dL Random Glucose (75-110) mg/dL Calcium (8.6-10.4) mg/dl Magnesium (1.6-2.3) mg/dL Total Bilirubin (0.2-1.3) mg/dL AST (17-59) U/L ALT (21-72) U/L Alkaline Phosphatase (38-126) U/L Total Protein (6.3-8.3) g/dL Albumin (3.5-5.0) g/dL Globulin (2.2-3.9) gm/dL Albumin/Globulin Ratio (1.0-2.1) Laboratory Results - last 24 hr 08/15/17 08/15/17 08/16/17 19:45 23:46 04:21 WBC RBC Hgb Hct MCV MCH MCHC RDW Plt Count MPV Neut % (Auto) Lymph % (Auto) [place] % (Auto) Eos % (Auto) Baso % (Auto) Neut # (Auto) Lymph # (Auto) [place] # (Auto) Eos # (Auto) Baso # (Auto) Neutrophils % (Manual) Band Neutrophils % Lymphocytes % (Manual) Monocytes % (Manual) Eosinophils % (Manual) Platelet Estimate Large Platelets Polychromasia Hypochromasia (manual) Poikilocytosis (manual Anisocytosis (manual) Target Cells Kay Cells Sodium Potassium Chloride Carbon Dioxide Anion Gap BUN Creatinine Est GFR ( Amer) Est GFR (Non-Af Amer) POC Glucose (mg/dL) 88 71 64 L Random Glucose Calcium Magnesium Total Bilirubin AST ALT Alkaline Phosphatase Total Protein Albumin Globulin Albumin/Globulin Ratio 08/16/17 08/16/17 08/16/17 04:23 05:19 06:30 WBC RBC Hgb Hct MCV MCH MCHC RDW Plt Count MPV Neut % (Auto) Lymph % (Auto) [place] % (Auto) Eos % (Auto) Baso % (Auto) Neut # (Auto) Lymph # (Auto) [place] # (Auto) Eos # (Auto) Baso # (Auto) Neutrophils % (Manual) Band Neutrophils % Lymphocytes % (Manual) Monocytes % (Manual) Eosinophils % (Manual) Platelet Estimate Large Platelets Polychromasia Hypochromasia (manual) Poikilocytosis (manual Anisocytosis (manual) Target Cells Fenton Cells Sodium 131 L Potassium 3.6 Chloride 98 Carbon Dioxide 24 Anion Gap 13 BUN 27 H Creatinine 3.2 H Est GFR ( Amer) 24 Est GFR (Non-Af Amer) 20 POC Glucose (mg/dL) 66 108 Random Glucose 115 H Calcium 8.5 L Magnesium 2.0 Total Bilirubin 0.8 AST 17 D ALT 14 L D Alkaline Phosphatase 158 H Total Protein 6.2 L Albumin 2.1 L Globulin 4.2 H Albumin/Globulin Ratio 0.5 L 08/16/17 08/16/17 08/16/17 06:30 08:33 11:47 WBC 16.8 H RBC 3.01 L Hgb 8.7 L Hct 26.5 L MCV 88.1 MCH 29.1 MCHC 33.0 RDW 19.1 H Plt Count 109 L D MPV 9.8 Neut % (Auto) 84.1 H Lymph % (Auto) 3.5 L [place] % (Auto) 7.9 Eos % (Auto) 3.6 Baso % (Auto) 0.9 Neut # (Auto) 14.1 H Lymph # (Auto) 0.6 L [place] # (Auto) 1.3 H Eos # (Auto) 0.6 Baso # (Auto) 0.1 Neutrophils % (Manual) 57 Band Neutrophils % 34 H* Lymphocytes % (Manual) 2 L Monocytes % (Manual) 6 Eosinophils % (Manual) 1 Platelet Estimate Slightly decreased L Large Platelets Present Polychromasia Slight Hypochromasia (manual) Slight Poikilocytosis (manual Slight Anisocytosis (manual) Slight Target Cells Slight Kay Cells Slight Sodium Potassium Chloride Carbon Dioxide Anion Gap BUN Creatinine Est GFR ( Amer) Est GFR (Non-Af Amer) POC Glucose (mg/dL) 79 65 Random Glucose Calcium Magnesium Total Bilirubin AST ALT Alkaline Phosphatase Total Protein Albumin Globulin Albumin/Globulin Ratio 08/16/17 08/16/17 08/16/17 11:48 12:37 16:35 WBC RBC Hgb Hct MCV MCH MCHC RDW Plt Count MPV Neut % (Auto) Lymph % (Auto) [place] % (Auto) Eos % (Auto) Baso % (Auto) Neut # (Auto) Lymph # (Auto) [place] # (Auto) Eos # (Auto) Baso # (Auto) Neutrophils % (Manual) Band Neutrophils % Lymphocytes % (Manual) Monocytes % (Manual) Eosinophils % (Manual) Platelet Estimate Large Platelets Polychromasia Hypochromasia (manual) Poikilocytosis (manual Anisocytosis (manual) Target Cells Fenton Cells Sodium Potassium Chloride Carbon Dioxide Anion Gap BUN Creatinine Est GFR ( Amer) Est GFR (Non-Af Amer) POC Glucose (mg/dL) 68 172 H 81 Random Glucose Calcium Magnesium Total Bilirubin AST ALT Alkaline Phosphatase Total Protein Albumin Globulin Albumin/Globulin Ratio Fingerstick Blood Sugar Results: 172 Critical Care Progress Note - Nutrition Nutrition: Nutrition Category Date Time Status NPO Diet [DIET] Diets 08/13/17 Breakfast Active <JamilfRolando M - Last Filed: 08/16/17 20:47> CCU Objective - Vital Signs / Intake & Output Vital Signs (Last 4 hours): Vital Signs Temp Pulse Resp BP Pulse Ox 08/16/17 20:00 98.9 F 72 22 117/53 L 100 08/16/17 19:00 71 22 109/50 L 100 08/16/17 18:00 71 23 108/48 L 100 08/16/17 17:00 72 22 130/54 L 100 Intake and Output (Last 8hrs): Intake & Output 08/16/17 08/16/17 08/16/17 06:59 14:59 22:59 Intake Total 519.5 290.4 361.9 Output Total 50 Balance 469.5 290.4 361.9 Weight 169 lb 6 oz Intake: IV 258 128 Intake, IV Amount 261.5 290.4 233.9 Right Distal Port 161.5 90.4 33.9 Right PICC 100 200 200 Output: Gastric Amount 50 Nares 50 Urine 0 Urine, Voided 0 Other: # Voids Urine, Voided 0 # Bowel Movements 1 1 - Medications Active Medications: Active Medications Generic Name Dose Route Start Last Admin Trade Name Freq PRN Reason Stop Dose Admin Acetaminophen 120 mg 08/14/17 04:10 08/15/17 17:01 Tylenol 120mg Supp KS 120 mg Q6 PRN Administration Fever >100.4 F Aspirin 81 mg 08/11/17 10:00 08/14/17 11:00 Aspirin Chewable PO Not Given DAILY [facility] Carvedilol 6.25 mg 08/11/17 10:00 08/16/17 18:21 Coreg PO Not Given BID [facility] Clopidogrel Bisulfate 75 mg 08/11/17 10:00 08/14/17 11:00 Plavix PO Not Given DAILY [facility] Docusate Sodium 100 mg 08/10/17 20:10 Colace PO BID PRN Constipation Famotidine 20 mg 08/11/17 10:00 08/16/17 13:51 Pepcid IVP 20 mg DAILY [facility] Administration Heparin Sodium (Porcine) 5,000 units 08/10/17 22:00 08/16/17 13:49 Heparin SC 5,000 units Q12 [facility] Administration Meropenem 500 mg/ Sodium 100 mls @ 100 mls/hr 08/15/17 13:15 08/16/17 13:37 Chloride IVPB 100 mls/hr Q12H [facility] Administration Vancomycin/Sodium Chloride 1 gm in 200 mls @ 133.333 mls/hr 08/17/17 09:00 Vancomycin 1 Gm/Ns 200 Ml IVPB 08/22/17 09:01 MWF [facility] Fluconazole 200 mls @ 100 mls/hr 08/15/17 14:00 08/16/17 13:53 Diflucan Iv 400mg/200ml Ns IVPB 100 mls/hr Q24H [facility] Administration Norepinephrine Bitartrate 8 mg 258 mls @ 21.28 mls/hr 08/15/17 23:12 17:30 / Sodium Chloride IV 2 mcg/min .Q12H8M PRN 3.87 mls/hr TITRATE PER MD ORDER Titration Protocol 11 MCG/MIN Amikacin Sulfate 750 mg/ 253 mls @ 250 mls/hr 08/17/17 09:00 Sodium Chloride IVPB MWF [facility] Insulin Aspart 0 unit 08/10/17 21:00 08/16/17 20:29 Novolog SC Not Given Q4H [facility] Protocol Rosuvastatin Calcium 2.5 mg 08/11/17 22:00 08/15/17 22:01 Crestor PO Not Given HS [facility] Sucralfate 1 gm 08/10/17 20:15 08/16/17 20:33 Carafate Oral Susp NG Not Given Q6H [facility] Vitamin A 4 ea 08/13/17 18:00 08/16/17 18:22 Vitamin A & D Oint Ud Foilpak TOP 4 ea BID [facility] Administration - Patient Studies Lab Studies: Microbiology Studies 08/15/17 12:30 Blood Culture - Preliminary Blood NO GROWTH AFTER 24 HOURS 08/15/17 12:00 Blood Culture - Preliminary Blood NO GROWTH AFTER 24 HOURS 08/16/17 04:00 Gram Stain - Preliminary Trachasp 08/15/17 07:33 Gram Stain - Preliminary [facility] Sputum Culture - Preliminary Gram Negative Giovanni 08/10/17 21:00 Blood Culture - Final Blood NO GROWTH AFTER 5 DAYS Gram Stain - Final TEST NOT PERFORMED 08/10/17 20:30 Blood Culture - Final Blood NO GROWTH AFTER 5 DAYS Gram Stain - Final TEST NOT PERFORMED Lab Studies 08/16/17 08/16/17 08/16/17 Range/Units 19:51 16:35 12:37 WBC (4.8-10.8) K/uL RBC (4.40-5.90) Mil/uL Hgb (12.0-18.0) g/dL Hct (35.0-51.0) % MCV (80.0-94.0) fL MCH (27.0-31.0) pg MCHC (33.0-37.0) g/dL RDW (11.5-14.5) % Plt Count (130-400) K/uL MPV (7.2-11.7) fL Neut % (Auto) (50.0-75.0) % Lymph % (Auto) (20.0-40.0) % [place] % (Auto) (0.0-10.0) % Eos % (Auto) (0.0-4.0) % Baso % (Auto) (0.0-2.0) % Neut # (Auto) (1.8-7.0) K/uL Lymph # (Auto) (1.0-4.3) K/uL [place] # (Auto) (0.0-0.8) K/uL Eos # (Auto) (0.0-0.7) K/uL Baso # (Auto) (0.0-0.2) K/uL Neutrophils % (Manual) (50-75) % Band Neutrophils % (0-2) % Lymphocytes % (Manual) (20-40) % Monocytes % (Manual) (0-10) % Eosinophils % (Manual) (0-4) % Platelet Estimate (NORMAL) Large Platelets Polychromasia Hypochromasia (manual) Poikilocytosis (manual Anisocytosis (manual) Target Cells Kay Cells Sodium (132-148) mmol/L Potassium (3.6-5.2) mmol/L Chloride (98-107) mmol/L Carbon Dioxide (22-30) mmol/L Anion Gap (10-20) BUN (9-20) mg/dL Creatinine (0.8-1.5) mg/dL Est GFR ( Amer) Est GFR (Non-Af Amer) POC Glucose (mg/dL) 78 81 172 H (65-110) mg/dL Random Glucose (75-110) mg/dL Calcium (8.6-10.4) mg/dl Magnesium (1.6-2.3) mg/dL Total Bilirubin (0.2-1.3) mg/dL AST (17-59) U/L ALT (21-72) U/L Alkaline Phosphatase (38-126) U/L Total Protein (6.3-8.3) g/dL Albumin (3.5-5.0) g/dL Globulin (2.2-3.9) gm/dL Albumin/Globulin Ratio (1.0-2.1) 08/16/17 08/16/17 08/16/17 Range/Units 11:48 11:47 08:33 WBC (4.8-10.8) K/uL RBC (4.40-5.90) Mil/uL Hgb (12.0-18.0) g/dL Hct (35.0-51.0) % MCV (80.0-94.0) fL MCH (27.0-31.0) pg MCHC (33.0-37.0) g/dL RDW (11.5-14.5) % Plt Count (130-400) K/uL MPV (7.2-11.7) fL Neut % (Auto) (50.0-75.0) % Lymph % (Auto) (20.0-40.0) % [place] % (Auto) (0.0-10.0) % Eos % (Auto) (0.0-4.0) % Baso % (Auto) (0.0-2.0) % Neut # (Auto) (1.8-7.0) K/uL Lymph # (Auto) (1.0-4.3) K/uL [place] # (Auto) (0.0-0.8) K/uL Eos # (Auto) (0.0-0.7) K/uL Baso # (Auto) (0.0-0.2) K/uL Neutrophils % (Manual) (50-75) % Band Neutrophils % (0-2) % Lymphocytes % (Manual) (20-40) % Monocytes % (Manual) (0-10) % Eosinophils % (Manual) (0-4) % Platelet Estimate (NORMAL) Large Platelets Polychromasia Hypochromasia (manual) Poikilocytosis (manual Anisocytosis (manual) Target Cells Kay Cells Sodium (132-148) mmol/L Potassium (3.6-5.2) mmol/L Chloride (98-107) mmol/L Carbon Dioxide (22-30) mmol/L Anion Gap (10-20) BUN (9-20) mg/dL Creatinine (0.8-1.5) mg/dL Est GFR ( Amer) Est GFR (Non-Af Amer) POC Glucose (mg/dL) 68 65 79 (65-110) mg/dL Random Glucose (75-110) mg/dL Calcium (8.6-10.4) mg/dl Magnesium (1.6-2.3) mg/dL Total Bilirubin (0.2-1.3) mg/dL AST (17-59) U/L ALT (21-72) U/L Alkaline Phosphatase (38-126) U/L Total Protein (6.3-8.3) g/dL Albumin (3.5-5.0) g/dL Globulin (2.2-3.9) gm/dL Albumin/Globulin Ratio (1.0-2.1) 08/16/17 08/16/17 08/16/17 Range/Units 06:30 06:30 05:19 WBC 16.8 H (4.8-10.8) K/uL RBC 3.01 L (4.40-5.90) Mil/uL Hgb 8.7 L (12.0-18.0) g/dL Hct 26.5 L (35.0-51.0) % MCV 88.1 (80.0-94.0) fL MCH 29.1 (27.0-31.0) pg MCHC 33.0 (33.0-37.0) g/dL RDW 19.1 H (11.5-14.5) % Plt Count 109 L D (130-400) K/uL MPV 9.8 (7.2-11.7) fL Neut % (Auto) 84.1 H (50.0-75.0) % Lymph % (Auto) 3.5 L (20.0-40.0) % [place] % (Auto) 7.9 (0.0-10.0) % Eos % (Auto) 3.6 (0.0-4.0) % Baso % (Auto) 0.9 (0.0-2.0) % Neut # (Auto) 14.1 H (1.8-7.0) K/uL Lymph # (Auto) 0.6 L (1.0-4.3) K/uL [place] # (Auto) 1.3 H (0.0-0.8) K/uL Eos # (Auto) 0.6 (0.0-0.7) K/uL Baso # (Auto) 0.1 (0.0-0.2) K/uL Neutrophils % (Manual) 57 (50-75) % Band Neutrophils % 34 H* (0-2) % Lymphocytes % (Manual) 2 L (20-40) % Monocytes % (Manual) 6 (0-10) % Eosinophils % (Manual) 1 (0-4) % Platelet Estimate Slightly decreased L (NORMAL) Large Platelets Present Polychromasia Slight Hypochromasia (manual) Slight Poikilocytosis (manual Slight Anisocytosis (manual) Slight Target Cells Slight Fenton Cells Slight Sodium 131 L (132-148) mmol/L Potassium 3.6 (3.6-5.2) mmol/L Chloride 98 (98-107) mmol/L Carbon Dioxide 24 (22-30) mmol/L Anion Gap 13 (10-20) BUN 27 H (9-20) mg/dL Creatinine 3.2 H (0.8-1.5) mg/dL Est GFR ( Amer) 24 Est GFR (Non-Af Amer) 20 POC Glucose (mg/dL) 108 (65-110) mg/dL Random Glucose 115 H (75-110) mg/dL Calcium 8.5 L (8.6-10.4) mg/dl Magnesium 2.0 (1.6-2.3) mg/dL Total Bilirubin 0.8 (0.2-1.3) mg/dL AST 17 D (17-59) U/L ALT 14 L D (21-72) U/L Alkaline Phosphatase 158 H (38-126) U/L Total Protein 6.2 L (6.3-8.3) g/dL Albumin 2.1 L (3.5-5.0) g/dL Globulin 4.2 H (2.2-3.9) gm/dL Albumin/Globulin Ratio 0.5 L (1.0-2.1) 08/16/17 08/16/17 08/15/17 Range/Units 04:23 04:21 23:46 WBC (4.8-10.8) K/uL RBC (4.40-5.90) Mil/uL Hgb (12.0-18.0) g/dL Hct (35.0-51.0) % MCV (80.0-94.0) fL MCH (27.0-31.0) pg MCHC (33.0-37.0) g/dL RDW (11.5-14.5) % Plt Count (130-400) K/uL MPV (7.2-11.7) fL Neut % (Auto) (50.0-75.0) % Lymph % (Auto) (20.0-40.0) % [place] % (Auto) (0.0-10.0) % Eos % (Auto) (0.0-4.0) % Baso % (Auto) (0.0-2.0) % Neut # (Auto) (1.8-7.0) K/uL Lymph # (Auto) (1.0-4.3) K/uL [place] # (Auto) (0.0-0.8) K/uL Eos # (Auto) (0.0-0.7) K/uL Baso # (Auto) (0.0-0.2) K/uL Neutrophils % (Manual) (50-75) % Band Neutrophils % (0-2) % Lymphocytes % (Manual) (20-40) % Monocytes % (Manual) (0-10) % Eosinophils % (Manual) (0-4) % Platelet Estimate (NORMAL) Large Platelets Polychromasia Hypochromasia (manual) Poikilocytosis (manual Anisocytosis (manual) Target Cells Kay Cells Sodium (132-148) mmol/L Potassium (3.6-5.2) mmol/L Chloride (98-107) mmol/L Carbon Dioxide (22-30) mmol/L Anion Gap (10-20) BUN (9-20) mg/dL Creatinine (0.8-1.5) mg/dL Est GFR ( Amer) Est GFR (Non-Af Amer) POC Glucose (mg/dL) 66 64 L 71 (65-110) mg/dL Random Glucose (75-110) mg/dL Calcium (8.6-10.4) mg/dl Magnesium (1.6-2.3) mg/dL Total Bilirubin (0.2-1.3) mg/dL AST (17-59) U/L ALT (21-72) U/L Alkaline Phosphatase (38-126) U/L Total Protein (6.3-8.3) g/dL Albumin (3.5-5.0) g/dL Globulin (2.2-3.9) gm/dL Albumin/Globulin Ratio (1.0-2.1) Laboratory Results - last 24 hr 08/15/17 08/16/17 08/16/17 23:46 04:21 04:23 WBC RBC Hgb Hct MCV MCH MCHC RDW Plt Count MPV Neut % (Auto) Lymph % (Auto) [place] % (Auto) Eos % (Auto) Baso % (Auto) Neut # (Auto) Lymph # (Auto) [place] # (Auto) Eos # (Auto) Baso # (Auto) Neutrophils % (Manual) Band Neutrophils % Lymphocytes % (Manual) Monocytes % (Manual) Eosinophils % (Manual) Platelet Estimate Large Platelets Polychromasia Hypochromasia (manual) Poikilocytosis (manual Anisocytosis (manual) Target Cells Kay Cells Sodium Potassium Chloride Carbon Dioxide Anion Gap BUN Creatinine Est GFR ( Amer) Est GFR (Non-Af Amer) POC Glucose (mg/dL) 71 64 L 66 Random Glucose Calcium Magnesium Total Bilirubin AST ALT Alkaline Phosphatase Total Protein Albumin Globulin Albumin/Globulin Ratio 08/16/17 08/16/17 08/16/17 05:19 06:30 06:30 WBC 16.8 H RBC 3.01 L Hgb 8.7 L Hct 26.5 L MCV 88.1 MCH 29.1 MCHC 33.0 RDW 19.1 H Plt Count 109 L D MPV 9.8 Neut % (Auto) 84.1 H Lymph % (Auto) 3.5 L [place] % (Auto) 7.9 Eos % (Auto) 3.6 Baso % (Auto) 0.9 Neut # (Auto) 14.1 H Lymph # (Auto) 0.6 L [place] # (Auto) 1.3 H Eos # (Auto) 0.6 Baso # (Auto) 0.1 Neutrophils % (Manual) 57 Band Neutrophils % 34 H* Lymphocytes % (Manual) 2 L Monocytes % (Manual) 6 Eosinophils % (Manual) 1 Platelet Estimate Slightly decreased L Large Platelets Present Polychromasia Slight Hypochromasia (manual) Slight Poikilocytosis (manual Slight Anisocytosis (manual) Slight Target Cells Slight Kay Cells Slight Sodium 131 L Potassium 3.6 Chloride 98 Carbon Dioxide 24 Anion Gap 13 BUN 27 H Creatinine 3.2 H Est GFR ( Amer) 24 Est GFR (Non-Af Amer) 20 POC Glucose (mg/dL) 108 Random Glucose 115 H Calcium 8.5 L Magnesium 2.0 Total Bilirubin 0.8 AST 17 D ALT 14 L D Alkaline Phosphatase 158 H Total Protein 6.2 L Albumin 2.1 L Globulin 4.2 H Albumin/Globulin Ratio 0.5 L 08/16/17 08/16/17 08/16/17 08:33 11:47 11:48 WBC RBC Hgb Hct MCV MCH MCHC RDW Plt Count MPV Neut % (Auto) Lymph % (Auto) [place] % (Auto) Eos % (Auto) Baso % (Auto) Neut # (Auto) Lymph # (Auto) [place] # (Auto) Eos # (Auto) Baso # (Auto) Neutrophils % (Manual) Band Neutrophils % Lymphocytes % (Manual) Monocytes % (Manual) Eosinophils % (Manual) Platelet Estimate Large Platelets Polychromasia Hypochromasia (manual) Poikilocytosis (manual Anisocytosis (manual) Target Cells Kay Cells Sodium Potassium Chloride Carbon Dioxide Anion Gap BUN Creatinine Est GFR ( Amer) Est GFR (Non-Af Amer) POC Glucose (mg/dL) 79 65 68 Random Glucose Calcium Magnesium Total Bilirubin AST ALT Alkaline Phosphatase Total Protein Albumin Globulin Albumin/Globulin Ratio 08/16/17 08/16/17 08/16/17 12:37 16:35 19:51 WBC RBC Hgb Hct MCV MCH MCHC RDW Plt Count MPV Neut % (Auto) Lymph % (Auto) Ing[place] % (Auto) Eos % (Auto) Baso % (Auto) Neut # (Auto) Lymph # (Auto) [place] # (Auto) Eos # (Auto) Baso # (Auto) Neutrophils % (Manual) Band Neutrophils % Lymphocytes % (Manual) Monocytes % (Manual) Eosinophils % (Manual) Platelet Estimate Large Platelets Polychromasia Hypochromasia (manual) Poikilocytosis (manual Anisocytosis (manual) Target Cells Kay Cells Sodium Potassium Chloride Carbon Dioxide Anion Gap BUN Creatinine Est GFR ( Amer) Est GFR (Non-Af Amer) POC Glucose (mg/dL) 172 H 81 78 Random Glucose Calcium Magnesium Total Bilirubin AST ALT Alkaline Phosphatase Total Protein Albumin Globulin Albumin/Globulin Ratio Critical Care Progress Note - Nutrition Nutrition: Nutrition Category Date Time Status NPO Diet [DIET] Diets 08/13/17 Breakfast Active Attending/Attestation - Attestation I have personally seen and examined this patient.: Yes I have fully participated in the care of the patient.: Yes I have reviewed all pertinent clinical information: Yes Notes (Text): 08/16/17 20:47 Today: August The Patient was seen and examined at the bedside, Medical records reviewed, and management issues were discussed and formulated with the house staff. I have reviewed all the relevant clinical, laboratory, hemodynamic, radiographic data and medications Events reviewed Pain issues, skin care, head of the bed elevation, glycemic control were addressed. Agree with above resident's assessment and treatment plans of care as transcribed in Dr. Rosales note.
[2017-08-16] MEDS ORDERED: Amikacin 500 MG in Dextrose 5% In Water 100 ML IVPB STA (17:50)
--- NOTE | 2017-08-16 17:52 | CP.PCM.PN ---
Subjective - Date & Time of Evaluation Date of Evaluation: 08/16/17 Time of Evaluation: 07:00 - Subjective Subjective: sputum growing MDRO gram neg amikacin added Objective - Vital Signs/Intake and Output Vital Signs (last 24 hours): Temp Pulse Resp BP Pulse Ox 98.1 F 73 22 98/46 L 100 08/16/17 12:50 08/16/17 12:50 08/16/17 12:50 08/16/17 12:50 08/16/17 12:50 Intake and Output: 08/16/17 08/16/17 06:59 18:59 Intake Total 1002.4 22.6 Output Total 50 Balance 952.4 22.6 - Medications Medications: Current Medications Acetaminophen (Tylenol 120mg Supp) 120 mg HI Q6 PRN PRN Reason: Fever >100.4 F Last Admin: 08/15/17 17:01 Dose: 120 mg Aspirin (Aspirin Chewable) 81 mg PO DAILY [facility] Last Admin: 08/14/17 11:00 Dose: Not Given Carvedilol (Coreg) 6.25 mg PO BID [facility] Last Admin: 08/16/17 09:44 Dose: Not Given Clopidogrel Bisulfate (Plavix) 75 mg PO DAILY [facility] Last Admin: 08/14/17 11:00 Dose: Not Given Docusate Sodium (Colace) 100 mg PO BID PRN PRN Reason: Constipation Famotidine (Pepcid) 20 mg IVP DAILY [facility] Last Admin: 08/16/17 13:51 Dose: 20 mg Heparin Sodium (Porcine) (Heparin) 5,000 units SC Q12 [facility] Last Admin: 08/16/17 13:49 Dose: 5,000 units Meropenem 500 mg/ Sodium (Chloride) 100 mls @ 100 mls/hr IVPB Q12H [facility] Last Admin: 08/16/17 13:37 Dose: 100 mls/hr Vancomycin/Sodium Chloride (Vancomycin 1 Gm/Ns 200 Ml) 1 gm in 200 mls @ 133.333 mls/hr IVPB [facility] Stop: 08/22/17 09:01 Fluconazole (Diflucan Iv 400mg/200ml Ns) 200 mls @ 100 mls/hr IVPB Q24H [facility] Last Admin: 08/16/17 13:53 Dose: 100 mls/hr Norepinephrine Bitartrate 8 mg (/ Sodium Chloride) 258 mls @ 21.28 mls/hr IV .Q12H8M PRN; Protocol; 11 MCG/MIN PRN Reason: TITRATE PER MD ORDER Last Admin: 08/16/17 06:53 Dose: 5.83 mcg/min, 11.3 mls/hr Amikacin Sulfate 750 mg/ (Sodium Chloride) 253 mls @ 250 mls/hr IVPB MWF [facility] Amikacin Sulfate 500 mg/ (Dextrose) 102 mls @ 204 mls/hr IVPB [facility] Stop: 08/16/17 18:19 Insulin Aspart (Novolog) 0 unit SC Q4H [facility] PRN Reason: Protocol Last Admin: 08/16/17 13:53 Dose: Not Given Rosuvastatin Calcium (Crestor) 2.5 mg PO HS [facility] Last Admin: 08/15/17 22:01 Dose: Not Given Sucralfate (Carafate Oral Susp) 1 gm NG Q6H [facility] Last Admin: 08/16/17 13:17 Dose: Not Given Vitamin A (Vitamin A & D Oint Ud Foilpak) 4 ea TOP BID [facility] Last Admin: 08/16/17 09:46 Dose: 4 ea - Labs Labs: 08/16/17 06:30 08/16/17 06:30 PT 13.1 SECONDS (9.7-12.2) H 08/10/17 21:21 INR 1.2 08/10/17 21:21 APTT 46 SECONDS (21-34) H 08/10/17 21:21 - Constitutional Appears: Confused, Chronically Ill - Head Exam Head Exam: NORMOCEPHALIC - Eye Exam Eye Exam: absent: Scleral icterus - ENT Exam ENT Exam: Mucous Membranes Dry - Neck Exam Neck Exam: absent: Lymphadenopathy - Respiratory Exam Respiratory Exam: Decreased Breath Sounds - Cardiovascular Exam Cardiovascular Exam: REGULAR RHYTHM - GI/Abdominal Exam GI & Abdominal Exam: Distended - Rectal Exam Rectal Exam: Deferred - Exam Exam: NORMAL INSPECTION Assessment and Plan (1) Altered mental status Status: Acute (2) COPD (chronic obstructive pulmonary disease) Status: Acute (3) Chronic congestive heart failure Status: Acute (4) Congestive heart failure (CHF) Status: Acute (5) Fever Status: Acute (6) Pneumonia Status: Acute (7) ESRD (end stage renal disease) on dialysis Status: Chronic (8) Hypertension Status: Chronic
--- NOTE | 2017-08-16 18:37 | CP.PCM.PN ---
Subjective - Date & Time of Evaluation Date of Evaluation: 08/16/17 Time of Evaluation: 18:37 Objective - Vital Signs/Intake and Output Vital Signs (last 24 hours): Temp Pulse Resp BP Pulse Ox 98.1 F 73 22 98/46 L 100 08/16/17 12:50 08/16/17 12:50 08/16/17 12:50 08/16/17 12:50 08/16/17 12:50 Intake and Output: 08/16/17 08/16/17 06:59 18:59 Intake Total 1002.4 22.6 Output Total 50 Balance 952.4 22.6 - Medications Medications: Current Medications Acetaminophen (Tylenol 120mg Supp) 120 mg [place] Q6 PRN PRN Reason: Fever >100.4 F Last Admin: 08/15/17 17:01 Dose: 120 mg Aspirin (Aspirin Chewable) 81 mg PO DAILY [facility] Last Admin: 08/14/17 11:00 Dose: Not Given Carvedilol (Coreg) 6.25 mg PO BID [facility] Last Admin: 08/16/17 18:21 Dose: Not Given Clopidogrel Bisulfate (Plavix) 75 mg PO DAILY [facility] Last Admin: 08/14/17 11:00 Dose: Not Given Docusate Sodium (Colace) 100 mg PO BID PRN PRN Reason: Constipation Famotidine (Pepcid) 20 mg IVP DAILY [facility] Last Admin: 08/16/17 13:51 Dose: 20 mg Heparin Sodium (Porcine) (Heparin) 5,000 units SC Q12 [facility] Last Admin: 08/16/17 13:49 Dose: 5,000 units Meropenem 500 mg/ Sodium (Chloride) 100 mls @ 100 mls/hr IVPB Q12H [facility] Last Admin: 08/16/17 13:37 Dose: 100 mls/hr Vancomycin/Sodium Chloride (Vancomycin 1 Gm/Ns 200 Ml) 1 gm in 200 mls @ 133.333 mls/hr IVPB MWF [facility] Stop: 08/22/17 09:01 Fluconazole (Diflucan Iv 400mg/200ml Ns) 200 mls @ 100 mls/hr IVPB Q24H [facility] Last Admin: 08/16/17 13:53 Dose: 100 mls/hr Norepinephrine Bitartrate 8 mg (/ Sodium Chloride) 258 mls @ 21.28 mls/hr IV .Q12H8M PRN; Protocol; 11 MCG/MIN PRN Reason: TITRATE PER MD ORDER Last Admin: 08/16/17 06:53 Dose: 5.83 mcg/min, 11.3 mls/hr Amikacin Sulfate 750 mg/ (Sodium Chloride) 253 mls @ 250 mls/hr IVPB MWF [facility] Insulin Aspart (Novolog) 0 unit SC Q4H [facility] PRN Reason: Protocol Last Admin: 08/16/17 18:21 Dose: Not Given Rosuvastatin Calcium (Crestor) 2.5 mg PO HS [facility] Last Admin: 08/15/17 22:01 Dose: Not Given Sucralfate (Carafate Oral Susp) 1 gm NG Q6H [facility] Last Admin: 08/16/17 13:17 Dose: Not Given Vitamin A (Vitamin A & D Oint Ud Foilpak) 4 ea TOP BID [facility] Last Admin: 08/16/17 18:22 Dose: 4 ea - Labs Labs: 08/16/17 06:30 08/16/17 06:30 PT 13.1 SECONDS (9.7-12.2) H 08/10/17 21:21 INR 1.2 08/10/17 21:21 APTT 46 SECONDS (21-34) H 08/10/17 21:21
--- NOTE | 2017-08-16 18:39 | CP.PCM.PN ---
Subjective - Date & Time of Evaluation Date of Evaluation: 08/16/17 Time of Evaluation: 12:40 - Subjective Subjective: clinically same Objective - Vital Signs/Intake and Output Vital Signs (last 24 hours): Temp Pulse Resp BP Pulse Ox 98.1 F 73 22 98/46 L 100 08/16/17 12:50 08/16/17 12:50 08/16/17 12:50 08/16/17 12:50 08/16/17 12:50 Intake and Output: 08/16/17 08/16/17 06:59 18:59 Intake Total 1002.4 22.6 Output Total 50 Balance 952.4 22.6 - Medications Medications: Current Medications Acetaminophen (Tylenol 120mg Supp) 120 mg [place] Q6 PRN PRN Reason: Fever >100.4 F Last Admin: 08/15/17 17:01 Dose: 120 mg Aspirin (Aspirin Chewable) 81 mg PO DAILY [facility] Last Admin: 08/14/17 11:00 Dose: Not Given Carvedilol (Coreg) 6.25 mg PO BID [facility] Last Admin: 08/16/17 18:21 Dose: Not Given Clopidogrel Bisulfate (Plavix) 75 mg PO DAILY [facility] Last Admin: 08/14/17 11:00 Dose: Not Given Docusate Sodium (Colace) 100 mg PO BID PRN PRN Reason: Constipation Famotidine (Pepcid) 20 mg IVP DAILY [facility] Last Admin: 08/16/17 13:51 Dose: 20 mg Heparin Sodium (Porcine) (Heparin) 5,000 units SC Q12 [facility] Last Admin: 08/16/17 13:49 Dose: 5,000 units Meropenem 500 mg/ Sodium (Chloride) 100 mls @ 100 mls/hr IVPB Q12H [facility] Last Admin: 08/16/17 13:37 Dose: 100 mls/hr Vancomycin/Sodium Chloride (Vancomycin 1 Gm/Ns 200 Ml) 1 gm in 200 mls @ 133.333 mls[facility] Stop: 08/22/17 09:01 Fluconazole (Diflucan Iv 400mg/200ml Ns) 200 mls @ 100 mls/hr IVPB Q24H [facility] Last Admin: 08/16/17 13:53 Dose: 100 mls/hr Norepinephrine Bitartrate 8 mg (/ Sodium Chloride) 258 mls @ 21.28 mls/hr IV .Q12H8M PRN; Protocol; 11 MCG/MIN PRN Reason: TITRATE PER MD ORDER Last Admin: 08/16/17 06:53 Dose: 5.83 mcg/min, 11.3 mls/hr Amikacin Sulfate 750 mg/ (Sodium Chloride) 253 mls @ 250 mls/hr IVPB MWF [facility] Insulin Aspart (Novolog) 0 unit SC Q4H [facility] PRN Reason: Protocol Last Admin: 08/16/17 18:21 Dose: Not Given Rosuvastatin Calcium (Crestor) 2.5 mg PO HS [facility] Last Admin: 08/15/17 22:01 Dose: Not Given Sucralfate (Carafate Oral Susp) 1 gm NG Q6H [facility] Last Admin: 08/16/17 13:17 Dose: Not Given Vitamin A (Vitamin A & D Oint Ud Foilpak) 4 ea TOP BID [facility] Last Admin: 08/16/17 18:22 Dose: 4 ea - Labs Labs: 08/16/17 06:30 08/16/17 06:30 PT 13.1 SECONDS (9.7-12.2) H 08/10/17 21:21 INR 1.2 08/10/17 21:21 APTT 46 SECONDS (21-34) H 08/10/17 21:21 - Constitutional Appears: Well - Head Exam Head Exam: ATRAUMATIC, NORMAL INSPECTION, NORMOCEPHALIC - Eye Exam Eye Exam: EOMI, Normal appearance, PERRL Pupil Exam: NORMAL ACCOMODATION, PERRL - ENT Exam ENT Exam: Mucous Membranes Moist, Normal Exam - Neck Exam Neck Exam: Full ROM, Normal Inspection. absent: Lymphadenopathy - Respiratory Exam Respiratory Exam: Decreased Breath Sounds - Cardiovascular Exam Cardiovascular Exam: REGULAR RHYTHM, +S1, +S2 - GI/Abdominal Exam GI & Abdominal Exam: Soft, Diminished Bowel Sounds - Rectal Exam Rectal Exam: Deferred
[2017-08-16] MEDS: Rosuvastatin Calcium 2.5 mg Tab PO SCH (21:14)
[2017-08-17] MEDS: (Novolog) Insulin Aspart, Recombinant 100 u/ml 10 ml vial SC SCH ×6 (00:21→21:28)
[2017-08-17] MEDS: Meropenem 500 MG in Sodium Chloride 0.9% 100 ML IVPB SCH ×2 (00:22→13:10)
[2017-08-17] MEDS: Sucralfate 1 gm/10 ml Oral Susp UD NG SCH ×4 (02:28→20:44)
[2017-08-17] MEDS ORDERED: Dextrose 50% SYRINGE Inj (50 ml) IV STA (04:00)
[2017-08-17 04:21] LABS: LYMPH # 0.5 K/uL (1.0-4.3)
[2017-08-17] MEDS ORDERED: Dextrose 50% VIAL Inj (50 ml) IV ONE (04:21)
[2017-08-17 04:34] LABS: ALB/GLOB RATIO 0.5 (1.0-2.1); ALBUMIN 2.1 g/dL (3.5-5.0)
[2017-08-17 04:45] LABS: BASO % 0.6 % (0.0-2.0); EOS # 0.3 K/uL (0.0-0.7); EOS % 3.6 % (0.0-4.0); HEMOGLOBIN 8.9 g/dL (12.0-18.0); LYMPH % 7.2 % (20.0-40.0); MEAN CELL VOLUME 88.8 fL (80.0-94.0); MEAN CORPUSCULAR HEMOGLOBIN 29.4 pg (27.0-31.0); MEAN CORPUSCULAR HGB CONC 33.1 g/dL (33.0-37.0); MEAN PLATELET VOLUME 9.1 fL (7.2-11.7); MONO # 0.7 K/uL (0.0-0.8); MONO % 9.3 % (0.0-10.0); NEUT # 5.9 K/uL (1.8-7.0); NEUT % 79.3 % (50.0-75.0); PLATELET COUNT 93 K/uL (130-400); RBC 3.02 Mil/uL (4.40-5.90); RED CELL DISTRIBUTION WIDTH 18.7 % (11.5-14.5); WHITE BLOOD COUNT 7.5 K/uL (4.8-10.8)
[2017-08-17 06:32] LABS: CALCIUM 8.6 mg/dl (8.6-10.4)
[2017-08-17 06:42] LABS: ANISOCYTOSIS MODERATE; EOSINOPHIL 2 % (0-4); HYPOCHROMIC MODERATE; LYMPHOCYTE 8 % (20-40); MONOCYTE 10 % (0-10); NEUTROPHIL 80 % (50-75); PLATELET ESTIMATE SLIGHTLY DECREASED (NORMAL); POIKILOCYTOSIS MODERATE; TOTAL CELLS COUNTED 100
[2017-08-17 06:48] LABS: MAGNESIUM 1.9 mg/dL (1.6-2.3)
--- NOTE | 2017-08-17 08:21 | CP.PCM.PN ---
Subjective - Date & Time of Evaluation Date of Evaluation: 08/17/17 Time of Evaluation: 08:18 - Subjective Subjective: Patient remains unresponsive. He is still being treated with Levophed. WBC count is down to 7.5. Objective - Vital Signs/Intake and Output Vital Signs (last 24 hours): Temp Pulse Resp BP Pulse Ox 98.9 F 65 22 96/46 L 100 08/17/17 04:00 08/17/17 06:00 08/17/17 06:00 08/17/17 06:00 08/17/17 06:00 Intake and Output: 08/17/17 08/17/17 06:59 18:59 Intake Total 122.8 Balance 122.8 - Medications Medications: Current Medications Acetaminophen (Tylenol 120mg Supp) 120 mg [place] Q6 PRN PRN Reason: Fever >100.4 F Last Admin: 08/15/17 17:01 Dose: 120 mg Aspirin (Aspirin Chewable) 81 mg PO DAILY [facility] Last Admin: 08/14/17 11:00 Dose: Not Given Carvedilol (Coreg) 6.25 mg PO BID [facility] Last Admin: 08/16/17 18:21 Dose: Not Given Clopidogrel Bisulfate (Plavix) 75 mg PO DAILY [facility] Last Admin: 08/14/17 11:00 Dose: Not Given Docusate Sodium (Colace) 100 mg PO BID PRN PRN Reason: Constipation Famotidine (Pepcid) 20 mg IVP DAILY [facility] Last Admin: 08/16/17 13:51 Dose: 20 mg Meropenem 500 mg/ Sodium (Chloride) 100 mls @ 100 mls/hr IVPB Q12H [facility] Last Admin: 08/17/17 00:22 Dose: 100 mls/hr Vancomycin/Sodium Chloride (Vancomycin 1 Gm/Ns 200 Ml) 1 gm in 200 mls @ 133.333 mls/hr IVPB MWF [facility] Stop: 08/22/17 09:01 Fluconazole (Diflucan Iv 400mg/200ml Ns) 200 mls @ 100 mls/hr IVPB Q24H [facility] Last Admin: 08/16/17 13:53 Dose: 100 mls/hr Norepinephrine Bitartrate 8 mg (/ Sodium Chloride) 258 mls @ 21.28 mls/hr IV .Q12H8M PRN; Protocol; 11 MCG/MIN PRN Reason: TITRATE PER MD ORDER Last Titration: 08/17/17 04:00 Dose: 0 mcg/min, 0 mls/hr Amikacin Sulfate 750 mg/ (Sodium Chloride) 253 mls @ 250 mls/hr IVPB MWF [facility] Potassium Chloride (Potassium Chloride 20 Meq/100 Ml) 20 meq in 100 mls @ 100 mls/hr IVPB Q1H [facility] Stop: 08/17/17 12:14 Insulin Aspart (Novolog) 0 unit SC Q4H [facility] PRN Reason: Protocol Last Admin: 08/17/17 04:16 Dose: Not Given Rosuvastatin Calcium (Crestor) 2.5 mg PO HS [facility] Last Admin: 08/16/17 21:14 Dose: Not Given Sucralfate (Carafate Oral Susp) 1 gm NG Q6H [facility] Last Admin: 08/17/17 02:28 Dose: Not Given Vitamin A (Vitamin A & D Oint Ud Foilpak) 4 ea TOP BID [facility] Last Admin: 08/16/17 18:22 Dose: 4 ea - Labs Labs: 08/17/17 04:02 08/17/17 04:02 PT 13.1 SECONDS (9.7-12.2) H 08/10/17 21:21 INR 1.2 08/10/17 21:21 APTT 46 SECONDS (21-34) H 08/10/17 21:21 - Constitutional Appears: No Acute Distress - Neck Exam Neck Exam: absent: Lymphadenopathy, Thyromegaly - Respiratory Exam Respiratory Exam: NORMAL BREATHING PATTERN. absent: Rales, Rhonchi, Wheezes - Cardiovascular Exam Cardiovascular Exam: REGULAR RHYTHM, +S1, +S2. absent: Gallop, Rubs, Murmur - GI/Abdominal Exam GI & Abdominal Exam: Soft, Normal Bowel Sounds. absent: Tenderness, Mass, Organomegaly - Rectal Exam Rectal Exam: Deferred - Extremities Exam Extremities Exam: absent: Calf Tenderness, Pedal Edema Assessment and Plan (1) Dysphagia Assessment & Plan: Plan is for PEG next week when clinically stable and off pressors. Status: Acute
[2017-08-17] MEDS ORDERED: Vancomycin 1 gm/NS 200 ml 1 GM/200 ML BAG IVPB SCH (09:00)
[2017-08-17] MEDS ORDERED: Amikacin Sulfate 750 MG in Sodium Chloride 0.9% 250 ML IVPB SCH (09:00)
[2017-08-17] MEDS: Vitamins A & D Oint UD Foilpak TOP SCH ×2 (10:30→18:12)
--- NOTE | 2017-08-17 11:55 | RAD ---
HISTORY: aspiration COMPARISON: No prior. FINDINGS: NGT is present, the tip of which lies at the level distal mediastinum and should be advanced. Note these findings were discussed with airline pilot Dr. Hernandez at approximately 11:43 a.m. with written down and read back verification. . Tracheostomy tube and right-sided PICC line unchanged. LUNGS: Patchy bilateral mid to lower lobe infiltrates right greater than left. Small bilateral effusions are also felt be present. Mild increased vascularity. PLEURA: As above. No pneumothorax apparent. CARDIOVASCULAR: Heart size stable OSSEOUS STRUCTURES: No significant abnormalities. VISUALIZED UPPER ABDOMEN: Normal. OTHER FINDINGS: None. IMPRESSION: Tip of the NGT lies within the distal mediastinum and should be advanced. These findings discussed with airline pilot Dr. Hernandez at approximately 11:43 a.m. with written down and read back verification. Right-sided PICC line and tracheostomy tube in good position. Patchy bilateral infiltrates in the mid to lower lung lang right greater than left. Mild increased vascularity
[2017-08-17] MEDS ORDERED: Iohexol 240 (50 ml) PO ONE (12:15)
--- NOTE | 2017-08-17 12:33 | CP.PCM.PN ---
Subjective - Date & Time of Evaluation Date of Evaluation: 08/17/17 Time of Evaluation: 12:33 Objective - Vital Signs/Intake and Output Vital Signs (last 24 hours): Temp Pulse Resp BP Pulse Ox 98.2 F 66 22 99/47 L 100 08/17/17 08:00 08/17/17 08:00 08/17/17 08:00 08/17/17 08:00 08/17/17 08:00 Intake and Output: 08/17/17 08/17/17 06:59 18:59 Intake Total 122.8 150 Output Total 0 Balance 122.8 150 - Medications Medications: Current Medications Acetaminophen (Tylenol 120mg Supp) 120 mg [place] Q6 PRN PRN Reason: Fever >100.4 F Last Admin: 08/15/17 17:01 Dose: 120 mg Aspirin (Aspirin Chewable) 81 mg PO DAILY [facility] Last Admin: 08/14/17 11:00 Dose: Not Given Carvedilol (Coreg) 6.25 mg PO BID [facility] Last Admin: 08/17/17 10:07 Dose: Not Given Clopidogrel Bisulfate (Plavix) 75 mg PO DAILY [facility] Last Admin: 08/14/17 11:00 Dose: Not Given Docusate Sodium (Colace) 100 mg PO BID PRN PRN Reason: Constipation Famotidine (Pepcid) 20 mg IVP DAILY [facility] Last Admin: 08/17/17 10:10 Dose: 20 mg Meropenem 500 mg/ Sodium (Chloride) 100 mls @ 100 mls/hr IVPB Q12H [facility] Last Admin: 08/17/17 00:22 Dose: 100 mls/hr Vancomycin/Sodium Chloride (Vancomycin 1 Gm/Ns 200 Ml) 1 gm in 200 mls @ 133.333 mls/hr IVPB MWF [facility] Stop: 08/22/17 09:01 Fluconazole (Diflucan Iv 400mg/200ml Ns) 200 mls @ 100 mls/hr IVPB Q24H [facility] Last Admin: 08/16/17 13:53 Dose: 100 mls/hr Norepinephrine Bitartrate 8 mg (/ Sodium Chloride) 258 mls @ 21.28 mls/hr IV .Q12H8M PRN; Protocol; 11 MCG/MIN PRN Reason: TITRATE PER MD ORDER Last Titration: 08/17/17 04:00 Dose: 0 mcg/min, 0 mls/hr Dextrose (Dextrose 10% In Water) 500 mls @ 30 mls/hr IV .[id number] [facility] Last Admin: 08/17/17 10:30 Dose: 30 mls/hr Amikacin Sulfate 750 mg/ (Sodium Chloride) 253 mls @ 250 mls/hr IVPB TTS [facility] Insulin Aspart (Novolog) 0 unit SC Q4H [facility] PRN Reason: Protocol Last Admin: 08/17/17 08:24 Dose: Not Given Rosuvastatin Calcium (Crestor) 2.5 mg PO HS [facility] Last Admin: 08/16/17 21:14 Dose: Not Given Sucralfate (Carafate Oral Susp) 1 gm NG Q6H [facility] Last Admin: 08/17/17 08:27 Dose: 1 gm Vitamin A (Vitamin A & D Oint Ud Foilpak) 4 ea TOP BID [facility] Last Admin: 08/17/17 10:30 Dose: 4 ea - Labs Labs: 08/17/17 04:02 08/17/17 04:02 PT 13.1 SECONDS (9.7-12.2) H 08/10/17 21:21 INR 1.2 08/10/17 21:21 APTT 46 SECONDS (21-34) H 08/10/17 21:21
[2017-08-17] MEDS: Fluconazole IV 400mg/200ml NS 200 ML IVPB SCH (13:11)
--- NOTE | 2017-08-17 15:10 | CP.CCUPN ---
<Dino Rosales - Last Filed: 08/17/17 15:07> CCU Subjective - Physician Review Subjective (Free Text): Patient seen and examined at bedside intubated trach Ct abdomen today awaiting peg CCU Objective - Vital Signs / Intake & Output Vital Signs (Last 4 hours): Vital Signs Temp Pulse Resp BP Pulse Ox 08/17/17 13:00 66 22 91/39 L 100 08/17/17 12:00 98.6 F 67 22 90/39 L 100 Intake and Output (Last 8hrs): Intake & Output 08/17/17 08/17/17 08/17/17 06:59 14:59 22:59 Intake Total 111.4 590 Output Total 0 Balance 111.4 590 Weight 160 lb 6 oz Intake: IV 0 Intake, IV Amount 111.4 390 Right Distal Port 11.4 90 Right PICC 100 300 Tube Feeding 0 Other 200 Output: Urine 0 Urine, Voided 0 Other: # Bowel Movements 0 0 - Medications Active Medications: Active Medications Generic Name Dose Route Start Last Admin Trade Name Freq PRN Reason Stop Dose Admin Acetaminophen 120 mg 08/14/17 04:10 08/15/17 17:01 Tylenol 120mg Supp SD 120 mg Q6 PRN Administration Fever >100.4 F Aspirin 81 mg 08/11/17 10:00 08/14/17 11:00 Aspirin Chewable PO Not Given DAILY [facility] Carvedilol 6.25 mg 08/11/17 10:00 08/17/17 10:07 Coreg PO Not Given BID [facility] Clopidogrel Bisulfate 75 mg 08/11/17 10:00 08/14/17 11:00 Plavix PO Not Given DAILY [facility] Docusate Sodium 100 mg 08/10/17 20:10 Colace PO BID PRN Constipation Famotidine 20 mg 08/11/17 10:00 08/17/17 10:10 Pepcid IVP 20 mg DAILY [facility] Administration Meropenem 500 mg/ Sodium 100 mls @ 100 mls/hr 08/15/17 13:15 08/17/17 13:10 Chloride IVPB 100 mls/hr Q12H [facility] Administration Vancomycin/Sodium Chloride 1 gm in 200 mls @ 133.333 mls/hr 08/17/17 09:00 Vancomycin 1 Gm/Ns 200 Ml IVPB 08/22/17 09:01 MWF [facility] Fluconazole 200 mls @ 100 mls/hr 08/15/17 14:00 08/17/17 13:11 Diflucan Iv 400mg/200ml Ns IVPB 100 mls/hr Q24H [facility] Administration Norepinephrine Bitartrate 8 mg 258 mls @ 21.28 mls/hr 08/15/17 23:12 04:00 / Sodium Chloride IV 0 mcg/min .Q12H8M PRN 0 mls/hr TITRATE PER MD ORDER Titration Protocol 11 MCG/MIN Dextrose 500 mls @ 30 mls/hr 08/17/17 10:30 08/17/17 10:30 Dextrose 10% In Water IV 30 mls/hr .[id number] [facility] Administration Amikacin Sulfate 750 mg/ 253 mls @ 250 mls/hr 08/18/17 10:00 Sodium Chloride IVPB TTS [facility] Insulin Aspart 0 unit 08/10/17 21:00 08/17/17 13:16 Novolog SC Not Given Q4H [facility] Protocol Rosuvastatin Calcium 2.5 mg 08/11/17 22:00 08/16/17 21:14 Crestor PO Not Given HS [facility] Sucralfate 1 gm 08/10/17 20:15 08/17/17 13:16 Carafate Oral Susp NG 1 gm Q6H [facility] Administration Vitamin A 4 ea 08/13/17 18:00 08/17/17 10:30 Vitamin A & D Oint Ud Foilpak TOP 4 ea BID [facility] Administration - Patient Studies Lab Studies: Microbiology Studies 08/15/17 07:33 Gram Stain - Final Trachasp Sputum Culture - Preliminary Acinetobacter Baumannii 08/16/17 04:00 Gram Stain - Preliminary Trachasp Sputum Culture - Preliminary Gram Negative Giovanni Gram Negative Giovanni#2 08/16/17 04:00 Blood Culture - Preliminary Blood NO GROWTH AFTER 24 HOURS 08/16/17 04:00 Blood Culture - Preliminary Blood NO GROWTH AFTER 24 HOURS 08/15/17 12:30 Blood Culture - Preliminary Blood NO GROWTH AFTER 24 HOURS 08/15/17 12:00 Blood Culture - Preliminary Blood NO GROWTH AFTER 24 HOURS Lab Studies 08/17/17 08/17/17 08/17/17 Range/Units 12:35 10:48 07:52 WBC (4.8-10.8) K/uL RBC (4.40-5.90) Mil/uL Hgb (12.0-18.0) g/dL Hct (35.0-51.0) % MCV (80.0-94.0) fL MCH (27.0-31.0) pg MCHC (33.0-37.0) g/dL RDW (11.5-14.5) % Plt Count (130-400) K/uL MPV (7.2-11.7) fL Neut % (Auto) (50.0-75.0) % Lymph % (Auto) (20.0-40.0) % Emmet % (Auto) (0.0-10.0) % Eos % (Auto) (0.0-4.0) % Baso % (Auto) (0.0-2.0) % Neut # (Auto) (1.8-7.0) K/uL Lymph # (Auto) (1.0-4.3) K/uL Emmet # (Auto) (0.0-0.8) K/uL Eos # (Auto) (0.0-0.7) K/uL Baso # (Auto) (0.0-0.2) K/uL Neutrophils % (Manual) (50-75) % Lymphocytes % (Manual) (20-40) % Monocytes % (Manual) (0-10) % Eosinophils % (Manual) (0-4) % Platelet Estimate (NORMAL) Hypochromasia (manual) Poikilocytosis (manual Anisocytosis (manual) Sodium (132-148) mmol/L Potassium (3.6-5.2) mmol/L Chloride (98-107) mmol/L Carbon Dioxide (22-30) mmol/L Anion Gap (10-20) BUN (9-20) mg/dL Creatinine (0.8-1.5) mg/dL Est GFR ( Amer) Est GFR (Non-Af Amer) POC Glucose (mg/dL) 72 89 (65-110) mg/dL Random Glucose (75-110) mg/dL Calcium (8.6-10.4) mg/dl Phosphorus (2.5-4.5) mg/dL Magnesium (1.6-2.3) mg/dL Total Bilirubin (0.2-1.3) mg/dL AST (17-59) U/L ALT (21-72) U/L Alkaline Phosphatase (38-126) U/L Total Protein (6.3-8.3) g/dL Albumin (3.5-5.0) g/dL Globulin (2.2-3.9) gm/dL Albumin/Globulin Ratio (1.0-2.1) Random Vancomycin 11.42 ug/mL 08/17/17 08/17/17 08/17/17 Range/Units 06:07 04:02 04:02 WBC 7.5 D (4.8-10.8) K/uL RBC 3.02 L (4.40-5.90) Mil/uL Hgb 8.9 L (12.0-18.0) g/dL Hct 26.8 L (35.0-51.0) % MCV 88.8 (80.0-94.0) fL MCH 29.4 (27.0-31.0) pg MCHC 33.1 (33.0-37.0) g/dL RDW 18.7 H (11.5-14.5) % Plt Count 93 L (130-400) K/uL MPV 9.1 (7.2-11.7) fL Neut % (Auto) 79.3 H (50.0-75.0) % Lymph % (Auto) 7.2 L (20.0-40.0) % Emmet % (Auto) 9.3 (0.0-10.0) % Eos % (Auto) 3.6 (0.0-4.0) % Baso % (Auto) 0.6 (0.0-2.0) % Neut # (Auto) 5.9 (1.8-7.0) K/uL Lymph # (Auto) 0.5 L (1.0-4.3) K/uL Emmet # (Auto) 0.7 (0.0-0.8) K/uL Eos # (Auto) 0.3 (0.0-0.7) K/uL Baso # (Auto) 0.0 (0.0-0.2) K/uL Neutrophils % (Manual) 80 H (50-75) % Lymphocytes % (Manual) 8 L (20-40) % Monocytes % (Manual) 10 (0-10) % Eosinophils % (Manual) 2 (0-4) % Platelet Estimate Slightly decreased L (NORMAL) Hypochromasia (manual) Moderate Poikilocytosis (manual Moderate Anisocytosis (manual) Moderate Sodium 133 (132-148) mmol/L Potassium 3.1 L (3.6-5.2) mmol/L Chloride 100 (98-107) mmol/L Carbon Dioxide 25 (22-30) mmol/L Anion Gap 11 (10-20) BUN 19 (9-20) mg/dL Creatinine 2.3 H (0.8-1.5) mg/dL Est GFR ( Amer) 35 Est GFR (Non-Af Amer) 29 POC Glucose (mg/dL) 83 (65-110) mg/dL Random Glucose 75 (75-110) mg/dL Calcium 8.6 (8.6-10.4) mg/dl Phosphorus 2.5 (2.5-4.5) mg/dL Magnesium 1.9 (1.6-2.3) mg/dL Total Bilirubin 0.9 (0.2-1.3) mg/dL AST 18 (17-59) U/L ALT 17 L D (21-72) U/L Alkaline Phosphatase 159 H (38-126) U/L Total Protein 6.4 (6.3-8.3) g/dL Albumin 2.1 L (3.5-5.0) g/dL Globulin 4.3 H (2.2-3.9) gm/dL Albumin/Globulin Ratio 0.5 L (1.0-2.1) Random Vancomycin ug/mL 08/17/17 08/17/17 08/16/17 Range/Units 03:57 01:02 23:49 WBC (4.8-10.8) K/uL RBC (4.40-5.90) Mil/uL Hgb (12.0-18.0) g/dL Hct (35.0-51.0) % MCV (80.0-94.0) fL MCH (27.0-31.0) pg MCHC (33.0-37.0) g/dL RDW (11.5-14.5) % Plt Count (130-400) K/uL MPV (7.2-11.7) fL Neut % (Auto) (50.0-75.0) % Lymph % (Auto) (20.0-40.0) % Emmet % (Auto) (0.0-10.0) % Eos % (Auto) (0.0-4.0) % Baso % (Auto) (0.0-2.0) % Neut # (Auto) (1.8-7.0) K/uL Lymph # (Auto) (1.0-4.3) K/uL Emmet # (Auto) (0.0-0.8) K/uL Eos # (Auto) (0.0-0.7) K/uL Baso # (Auto) (0.0-0.2) K/uL Neutrophils % (Manual) (50-75) % Lymphocytes % (Manual) (20-40) % Monocytes % (Manual) (0-10) % Eosinophils % (Manual) (0-4) % Platelet Estimate (NORMAL) Hypochromasia (manual) Poikilocytosis (manual Anisocytosis (manual) Sodium (132-148) mmol/L Potassium (3.6-5.2) mmol/L Chloride (98-107) mmol/L Carbon Dioxide (22-30) mmol/L Anion Gap (10-20) BUN (9-20) mg/dL Creatinine (0.8-1.5) mg/dL Est GFR ( Amer) Est GFR (Non-Af Amer) POC Glucose (mg/dL) 68 93 51 L (65-110) mg/dL Random Glucose (75-110) mg/dL Calcium (8.6-10.4) mg/dl Phosphorus (2.5-4.5) mg/dL Magnesium (1.6-2.3) mg/dL Total Bilirubin (0.2-1.3) mg/dL AST (17-59) U/L ALT (21-72) U/L Alkaline Phosphatase (38-126) U/L Total Protein (6.3-8.3) g/dL Albumin (3.5-5.0) g/dL Globulin (2.2-3.9) gm/dL Albumin/Globulin Ratio (1.0-2.1) Random Vancomycin ug/mL 08/16/17 08/16/17 08/16/17 Range/Units 23:47 19:51 16:35 WBC (4.8-10.8) K/uL RBC (4.40-5.90) Mil/uL Hgb (12.0-18.0) g/dL Hct (35.0-51.0) % MCV (80.0-94.0) fL MCH (27.0-31.0) pg MCHC (33.0-37.0) g/dL RDW (11.5-14.5) % Plt Count (130-400) K/uL MPV (7.2-11.7) fL Neut % (Auto) (50.0-75.0) % Lymph % (Auto) (20.0-40.0) % Emmet % (Auto) (0.0-10.0) % Eos % (Auto) (0.0-4.0) % Baso % (Auto) (0.0-2.0) % Neut # (Auto) (1.8-7.0) K/uL Lymph # (Auto) (1.0-4.3) K/uL Emmet # (Auto) (0.0-0.8) K/uL Eos # (Auto) (0.0-0.7) K/uL Baso # (Auto) (0.0-0.2) K/uL Neutrophils % (Manual) (50-75) % Lymphocytes % (Manual) (20-40) % Monocytes % (Manual) (0-10) % Eosinophils % (Manual) (0-4) % Platelet Estimate (NORMAL) Hypochromasia (manual) Poikilocytosis (manual Anisocytosis (manual) Sodium (132-148) mmol/L Potassium (3.6-5.2) mmol/L Chloride (98-107) mmol/L Carbon Dioxide (22-30) mmol/L Anion Gap (10-20) BUN (9-20) mg/dL Creatinine (0.8-1.5) mg/dL Est GFR ( Amer) Est GFR (Non-Af Amer) POC Glucose (mg/dL) 60 L 78 81 (65-110) mg/dL Random Glucose (75-110) mg/dL Calcium (8.6-10.4) mg/dl Phosphorus (2.5-4.5) mg/dL Magnesium (1.6-2.3) mg/dL Total Bilirubin (0.2-1.3) mg/dL AST (17-59) U/L ALT (21-72) U/L Alkaline Phosphatase (38-126) U/L Total Protein (6.3-8.3) g/dL Albumin (3.5-5.0) g/dL Globulin (2.2-3.9) gm/dL Albumin/Globulin Ratio (1.0-2.1) Random Vancomycin ug/mL Laboratory Results - last 24 hr 08/16/17 08/16/17 08/16/17 16:35 19:51 23:47 WBC RBC Hgb Hct MCV MCH MCHC RDW Plt Count MPV Neut % (Auto) Lymph % (Auto) Emmet % (Auto) Eos % (Auto) Baso % (Auto) Neut # (Auto) Lymph # (Auto) Emmet # (Auto) Eos # (Auto) Baso # (Auto) Neutrophils % (Manual) Lymphocytes % (Manual) Monocytes % (Manual) Eosinophils % (Manual) Platelet Estimate Hypochromasia (manual) Poikilocytosis (manual Anisocytosis (manual) Sodium Potassium Chloride Carbon Dioxide Anion Gap BUN Creatinine Est GFR ( Amer) Est GFR (Non-Af Amer) POC Glucose (mg/dL) 81 78 60 L Random Glucose Calcium Phosphorus Magnesium Total Bilirubin AST ALT Alkaline Phosphatase Total Protein Albumin Globulin Albumin/Globulin Ratio Random Vancomycin 08/16/17 08/17/17 08/17/17 23:49 01:02 03:57 WBC RBC Hgb Hct MCV MCH MCHC RDW Plt Count MPV Neut % (Auto) Lymph % (Auto) Emmet % (Auto) Eos % (Auto) Baso % (Auto) Neut # (Auto) Lymph # (Auto) Emmet # (Auto) Eos # (Auto) Baso # (Auto) Neutrophils % (Manual) Lymphocytes % (Manual) Monocytes % (Manual) Eosinophils % (Manual) Platelet Estimate Hypochromasia (manual) Poikilocytosis (manual Anisocytosis (manual) Sodium Potassium Chloride Carbon Dioxide Anion Gap BUN Creatinine Est GFR ( Amer) Est GFR (Non-Af Amer) POC Glucose (mg/dL) 51 L 93 68 Random Glucose Calcium Phosphorus Magnesium Total Bilirubin AST ALT Alkaline Phosphatase Total Protein Albumin Globulin Albumin/Globulin Ratio Random Vancomycin 02/09/18 02/09/18 02/09/18 04:02 04:02 06:07 WBC 7.5 D RBC 3.02 L Hgb 8.9 L Hct 26.8 L MCV 88.8 MCH 29.4 MCHC 33.1 RDW 18.7 H Plt Count 93 L MPV 9.1 Neut % (Auto) 79.3 H Lymph % (Auto) 7.2 L Emmet % (Auto) 9.3 Eos % (Auto) 3.6 Baso % (Auto) 0.6 Neut # (Auto) 5.9 Lymph # (Auto) 0.5 L Emmet # (Auto) 0.7 Eos # (Auto) 0.3 Baso # (Auto) 0.0 Neutrophils % (Manual) 80 H Lymphocytes % (Manual) 8 L Monocytes % (Manual) 10 Eosinophils % (Manual) 2 Platelet Estimate Slightly decreased L Hypochromasia (manual) Moderate Poikilocytosis (manual Moderate Anisocytosis (manual) Moderate Sodium 133 Potassium 3.1 L Chloride 100 Carbon Dioxide 25 Anion Gap 11 BUN 19 Creatinine 2.3 H Est GFR ( Amer) 35 Est GFR (Non-Af Amer) 29 POC Glucose (mg/dL) 83 Random Glucose 75 Calcium 8.6 Phosphorus 2.5 Magnesium 1.9 Total Bilirubin 0.9 AST 18 ALT 17 L D Alkaline Phosphatase 159 H Total Protein 6.4 Albumin 2.1 L Globulin 4.3 H Albumin/Globulin Ratio 0.5 L Random Vancomycin 08/17/17 08/17/17 08/17/17 07:52 10:48 12:35 WBC RBC Hgb Hct MCV MCH MCHC RDW Plt Count MPV Neut % (Auto) Lymph % (Auto) Emmet % (Auto) Eos % (Auto) Baso % (Auto) Neut # (Auto) Lymph # (Auto) Emmet # (Auto) Eos # (Auto) Baso # (Auto) Neutrophils % (Manual) Lymphocytes % (Manual) Monocytes % (Manual) Eosinophils % (Manual) Platelet Estimate Hypochromasia (manual) Poikilocytosis (manual Anisocytosis (manual) Sodium Potassium Chloride Carbon Dioxide Anion Gap BUN Creatinine Est GFR ( Amer) Est GFR (Non-Af Amer) POC Glucose (mg/dL) 89 72 Random Glucose Calcium Phosphorus Magnesium Total Bilirubin AST ALT Alkaline Phosphatase Total Protein Albumin Globulin Albumin/Globulin Ratio Random Vancomycin 11.42 Fingerstick Blood Sugar Results: 72 Critical Care Progress Note - Nutrition Nutrition: Nutrition Category Date Time Status NPO Diet [DIET] Diets 08/13/17 Breakfast Active Assessment/Plan - Assessment and Plan (Free Text) Assessment: 62M aspiration s/p trach, awaiting peg tube Psych: no active problems Cardio: CAD, HTN ASA 81mg QD - hold until after GI procedure Coreg 6.25 PO BID Plavix 75mg PO QD - hold until after GI procedure Rosuvastatin 2.5mg PO QHS Pulm: Respiratory failure s/p intubation, PNA, COPD, hypoxemia Psuedomonas + trach culture n 08/10/17 MDRO Gram neg rods + trach culture 08/15/17 vancomycin duoneb Tracheostomy decrease FiO2 50%, PEEP 5 CXR sputum culture GI: Chronic Dysphagia ([place]) G placement postponed until next week per GI Sucrafalfate Nephro tube feeds at 20cc/hr CT ABd/pelvis with PO contrast Renal: ESRD ([place]) HD: T, Th, Sat Endo: IDDM, hypothyroidism, hypoglycemia ISS D10 30c/hr ID: Septic Shock gram neg rods in trach culture norephinephrine vanc/diflucan Amikacin per ID vaco trough, amakacin level Heme/Onc: blood culture neg PPx: Pepcid 20 IVP QD Heparin 5,000 units SC QD full code <Daniella Hernandez M - Last Filed: 08/17/17 20:12> CCU Subjective - Physician Review Critical Care Time Spent (in minutes): 35 CCU Objective - Vital Signs / Intake & Output Vital Signs (Last 4 hours): Vital Signs Pulse Resp BP Pulse Ox 08/17/17 19:00 68 22 103/48 L 100 08/17/17 18:00 67 22 107/50 L 100 08/17/17 17:00 69 22 106/50 L 100 Intake and Output (Last 8hrs): Intake & Output 08/17/17 08/17/17 08/17/17 06:59 14:59 22:59 Intake Total 111.4 1070 600 Output Total 0 0 Balance 111.4 1070 600 Weight 160 lb 6 oz Intake: IV 0 Intake, IV Amount 111.4 620 350 Right Distal Port 11.4 120 150 Right PICC 100 500 200 Tube Feeding 0 0 Other 450 250 Output: Urine 0 0 Urine, Voided 0 0 Other: # Bowel Movements 0 0 0 - Medications Active Medications: Active Medications Generic Name Dose Route Start Last Admin Trade Name Freq PRN Reason Stop Dose Admin Acetaminophen 120 mg 08/14/17 04:10 08/15/17 17:01 Tylenol 120mg Supp SD 120 mg Q6 PRN Administration Fever >100.4 F Aspirin 81 mg 08/11/17 10:00 08/14/17 11:00 Aspirin Chewable PO Not Given DAILY [facility] Carvedilol 6.25 mg 08/11/17 10:00 08/17/17 18:06 Coreg PO Not Given BID [facility] Clopidogrel Bisulfate 75 mg 08/11/17 10:00 08/14/17 11:00 Plavix PO Not Given DAILY [facility] Docusate Sodium 100 mg 08/10/17 20:10 Colace PO BID PRN Constipation Famotidine 20 mg 08/11/17 10:00 08/17/17 10:10 Pepcid IVP 20 mg DAILY [facility] Administration Meropenem 500 mg/ Sodium 100 mls @ 100 mls/hr 08/15/17 13:15 08/17/17 13:10 Chloride IVPB 100 mls/hr Q12H [facility] Administration Fluconazole 200 mls @ 100 mls/hr 08/15/17 14:00 08/17/17 13:11 Diflucan Iv 400mg/200ml Ns IVPB 100 mls/hr Q24H [facility] Administration Norepinephrine Bitartrate 8 mg 258 mls @ 21.28 mls/hr 08/15/17 23:12 04:00 / Sodium Chloride IV 0 mcg/min .Q12H8M PRN 0 mls/hr TITRATE PER MD ORDER Titration Protocol 11 MCG/MIN Dextrose 500 mls @ 30 mls/hr 08/17/17 10:30 08/17/17 10:30 Dextrose 10% In Water IV 30 mls/hr .[id number] [facility] Administration Amikacin Sulfate 750 mg/ 253 mls @ 250 mls/hr 08/18/17 10:00 Sodium Chloride IVPB TTS [facility] Vancomycin/Sodium Chloride 1 gm in 200 mls @ 133.333 mls/hr 08/18/17 10:00 Vancomycin 1 Gm/Ns 200 Ml IVPB 08/23/17 10:01 TTS [facility] Insulin Aspart 0 unit 08/10/17 21:00 08/17/17 16:52 Novolog SC Not Given Q4H [facility] Protocol Rosuvastatin Calcium 2.5 mg 08/11/17 22:00 08/16/17 21:14 Crestor PO Not Given HS [facility] Sucralfate 1 gm 08/10/17 20:15 08/17/17 13:16 Carafate Oral Susp NG 1 gm Q6H [facility] Administration Vitamin A 4 ea 08/13/17 18:00 08/17/17 18:12 Vitamin A & D Oint Ud Foilpak TOP 4 ea BID [facility] Administration - Patient Studies Lab Studies: Microbiology Studies 08/15/17 12:30 Blood Culture - Preliminary Blood NO GROWTH AFTER 48 HOURS 08/15/17 12:00 Blood Culture - Preliminary Blood NO GROWTH AFTER 48 HOURS 08/15/17 07:33 Gram Stain - Final Trachasp Sputum Culture - Preliminary Acinetobacter Baumannii 08/16/17 04:00 Gram Stain - Preliminary Trachasp Sputum Culture - Preliminary Gram Negative Giovanni Gram Negative Giovanni#2 08/16/17 04:00 Blood Culture - Preliminary Blood NO GROWTH AFTER 24 HOURS 08/16/17 04:00 Blood Culture - Preliminary Blood NO GROWTH AFTER 24 HOURS Lab Studies 08/17/17 08/17/17 08/17/17 Range/Units 16:16 12:35 10:48 WBC (4.8-10.8) K/uL RBC (4.40-5.90) Mil/uL Hgb (12.0-18.0) g/dL Hct (35.0-51.0) % MCV (80.0-94.0) fL MCH (27.0-31.0) pg MCHC (33.0-37.0) g/dL RDW (11.5-14.5) % Plt Count (130-400) K/uL MPV (7.2-11.7) fL Neut % (Auto) (50.0-75.0) % Lymph % (Auto) (20.0-40.0) % Emmet % (Auto) (0.0-10.0) % Eos % (Auto) (0.0-4.0) % Baso % (Auto) (0.0-2.0) % Neut # (Auto) (1.8-7.0) K/uL Lymph # (Auto) (1.0-4.3) K/uL Emmet # (Auto) (0.0-0.8) K/uL Eos # (Auto) (0.0-0.7) K/uL Baso # (Auto) (0.0-0.2) K/uL Neutrophils % (Manual) (50-75) % Lymphocytes % (Manual) (20-40) % Monocytes % (Manual) (0-10) % Eosinophils % (Manual) (0-4) % Platelet Estimate (NORMAL) Hypochromasia (manual) Poikilocytosis (manual Anisocytosis (manual) Sodium (132-148) mmol/L Potassium (3.6-5.2) mmol/L Chloride (98-107) mmol/L Carbon Dioxide (22-30) mmol/L Anion Gap (10-20) BUN (9-20) mg/dL Creatinine (0.8-1.5) mg/dL Est GFR ( Amer) Est GFR (Non-Af Amer) POC Glucose (mg/dL) 78 72 (65-110) mg/dL Random Glucose (75-110) mg/dL Calcium (8.6-10.4) mg/dl Phosphorus (2.5-4.5) mg/dL Magnesium (1.6-2.3) mg/dL Total Bilirubin (0.2-1.3) mg/dL AST (17-59) U/L ALT (21-72) U/L Alkaline Phosphatase (38-126) U/L Total Protein (6.3-8.3) g/dL Albumin (3.5-5.0) g/dL Globulin (2.2-3.9) gm/dL Albumin/Globulin Ratio (1.0-2.1) Random Vancomycin 11.42 ug/mL 08/17/17 08/17/17 08/17/17 Range/Units 07:52 06:07 04:02 WBC (4.8-10.8) K/uL RBC (4.40-5.90) Mil/uL Hgb (12.0-18.0) g/dL Hct (35.0-51.0) % MCV (80.0-94.0) fL MCH (27.0-31.0) pg MCHC (33.0-37.0) g/dL RDW (11.5-14.5) % Plt Count (130-400) K/uL MPV (7.2-11.7) fL Neut % (Auto) (50.0-75.0) % Lymph % (Auto) (20.0-40.0) % Emmet % (Auto) (0.0-10.0) % Eos % (Auto) (0.0-4.0) % Baso % (Auto) (0.0-2.0) % Neut # (Auto) (1.8-7.0) K/uL Lymph # (Auto) (1.0-4.3) K/uL Emmet # (Auto) (0.0-0.8) K/uL Eos # (Auto) (0.0-0.7) K/uL Baso # (Auto) (0.0-0.2) K/uL Neutrophils % (Manual) (50-75) % Lymphocytes % (Manual) (20-40) % Monocytes % (Manual) (0-10) % Eosinophils % (Manual) (0-4) % Platelet Estimate (NORMAL) Hypochromasia (manual) Poikilocytosis (manual Anisocytosis (manual) Sodium 133 (132-148) mmol/L Potassium 3.1 L (3.6-5.2) mmol/L Chloride 100 (98-107) mmol/L Carbon Dioxide 25 (22-30) mmol/L Anion Gap 11 (10-20) BUN 19 (9-20) mg/dL Creatinine 2.3 H (0.8-1.5) mg/dL Est GFR ( Amer) 35 Est GFR (Non-Af Amer) 29 POC Glucose (mg/dL) 89 83 (65-110) mg/dL Random Glucose 75 (75-110) mg/dL Calcium 8.6 (8.6-10.4) mg/dl Phosphorus 2.5 (2.5-4.5) mg/dL Magnesium 1.9 (1.6-2.3) mg/dL Total Bilirubin 0.9 (0.2-1.3) mg/dL AST 18 (17-59) U/L ALT 17 L D (21-72) U/L Alkaline Phosphatase 159 H (38-126) U/L Total Protein 6.4 (6.3-8.3) g/dL Albumin 2.1 L (3.5-5.0) g/dL Globulin 4.3 H (2.2-3.9) gm/dL Albumin/Globulin Ratio 0.5 L (1.0-2.1) Random Vancomycin ug/mL 08/17/17 08/17/17 08/17/17 Range/Units 04:02 03:57 01:02 WBC 7.5 D (4.8-10.8) K/uL RBC 3.02 L (4.40-5.90) Mil/uL Hgb 8.9 L (12.0-18.0) g/dL Hct 26.8 L (35.0-51.0) % MCV 88.8 (80.0-94.0) fL MCH 29.4 (27.0-31.0) pg MCHC 33.1 (33.0-37.0) g/dL RDW 18.7 H (11.5-14.5) % Plt Count 93 L (130-400) K/uL MPV 9.1 (7.2-11.7) fL Neut % (Auto) 79.3 H (50.0-75.0) % Lymph % (Auto) 7.2 L (20.0-40.0) % Emmet % (Auto) 9.3 (0.0-10.0) % Eos % (Auto) 3.6 (0.0-4.0) % Baso % (Auto) 0.6 (0.0-2.0) % Neut # (Auto) 5.9 (1.8-7.0) K/uL Lymph # (Auto) 0.5 L (1.0-4.3) K/uL Emmet # (Auto) 0.7 (0.0-0.8) K/uL Eos # (Auto) 0.3 (0.0-0.7) K/uL Baso # (Auto) 0.0 (0.0-0.2) K/uL Neutrophils % (Manual) 80 H (50-75) % Lymphocytes % (Manual) 8 L (20-40) % Monocytes % (Manual) 10 (0-10) % Eosinophils % (Manual) 2 (0-4) % Platelet Estimate Slightly decreased L (NORMAL) Hypochromasia (manual) Moderate Poikilocytosis (manual Moderate Anisocytosis (manual) Moderate Sodium (132-148) mmol/L Potassium (3.6-5.2) mmol/L Chloride (98-107) mmol/L Carbon Dioxide (22-30) mmol/L Anion Gap (10-20) BUN (9-20) mg/dL Creatinine (0.8-1.5) mg/dL Est GFR ( Amer) Est GFR (Non-Af Amer) POC Glucose (mg/dL) 68 93 (65-110) mg/dL Random Glucose (75-110) mg/dL Calcium (8.6-10.4) mg/dl Phosphorus (2.5-4.5) mg/dL Magnesium (1.6-2.3) mg/dL Total Bilirubin (0.2-1.3) mg/dL AST (17-59) U/L ALT (21-72) U/L Alkaline Phosphatase (38-126) U/L Total Protein (6.3-8.3) g/dL Albumin (3.5-5.0) g/dL Globulin (2.2-3.9) gm/dL Albumin/Globulin Ratio (1.0-2.1) Random Vancomycin ug/mL 08/16/17 08/16/17 Range/Units 23:49 23:47 WBC (4.8-10.8) K/uL RBC (4.40-5.90) Mil/uL Hgb (12.0-18.0) g/dL Hct (35.0-51.0) % MCV (80.0-94.0) fL MCH (27.0-31.0) pg MCHC (33.0-37.0) g/dL RDW (11.5-14.5) % Plt Count (130-400) K/uL MPV (7.2-11.7) fL Neut % (Auto) (50.0-75.0) % Lymph % (Auto) (20.0-40.0) % Emmet % (Auto) (0.0-10.0) % Eos % (Auto) (0.0-4.0) % Baso % (Auto) (0.0-2.0) % Neut # (Auto) (1.8-7.0) K/uL Lymph # (Auto) (1.0-4.3) K/uL Emmet # (Auto) (0.0-0.8) K/uL Eos # (Auto) (0.0-0.7) K/uL Baso # (Auto) (0.0-0.2) K/uL Neutrophils % (Manual) (50-75) % Lymphocytes % (Manual) (20-40) % Monocytes % (Manual) (0-10) % Eosinophils % (Manual) (0-4) % Platelet Estimate (NORMAL) Hypochromasia (manual) Poikilocytosis (manual Anisocytosis (manual) Sodium (132-148) mmol/L Potassium (3.6-5.2) mmol/L Chloride (98-107) mmol/L Carbon Dioxide (22-30) mmol/L Anion Gap (10-20) BUN (9-20) mg/dL Creatinine (0.8-1.5) mg/dL Est GFR ( Amer) Est GFR (Non-Af Amer) POC Glucose (mg/dL) 51 L 60 L (65-110) mg/dL Random Glucose (75-110) mg/dL Calcium (8.6-10.4) mg/dl Phosphorus (2.5-4.5) mg/dL Magnesium (1.6-2.3) mg/dL Total Bilirubin (0.2-1.3) mg/dL AST (17-59) U/L ALT (21-72) U/L Alkaline Phosphatase (38-126) U/L Total Protein (6.3-8.3) g/dL Albumin (3.5-5.0) g/dL Globulin (2.2-3.9) gm/dL Albumin/Globulin Ratio (1.0-2.1) Random Vancomycin ug/mL Laboratory Results - last 24 hr 08/16/17 08/16/17 08/17/17 23:47 23:49 01:02 WBC RBC Hgb Hct MCV MCH MCHC RDW Plt Count MPV Neut % (Auto) Lymph % (Auto) Emmet % (Auto) Eos % (Auto) Baso % (Auto) Neut # (Auto) Lymph # (Auto) Emmet # (Auto) Eos # (Auto) Baso # (Auto) Neutrophils % (Manual) Lymphocytes % (Manual) Monocytes % (Manual) Eosinophils % (Manual) Platelet Estimate Hypochromasia (manual) Poikilocytosis (manual Anisocytosis (manual) Sodium Potassium Chloride Carbon Dioxide Anion Gap BUN Creatinine Est GFR ( Amer) Est GFR (Non-Af Amer) POC Glucose (mg/dL) 60 L 51 L 93 Random Glucose Calcium Phosphorus Magnesium Total Bilirubin AST ALT Alkaline Phosphatase Total Protein Albumin Globulin Albumin/Globulin Ratio Random Vancomycin 08/17/17 08/17/17 08/17/17 03:57 04:02 04:02 WBC 7.5 D RBC 3.02 L Hgb 8.9 L Hct 26.8 L MCV 88.8 MCH 29.4 MCHC 33.1 RDW 18.7 H Plt Count 93 L MPV 9.1 Neut % (Auto) 79.3 H Lymph % (Auto) 7.2 L Emmet % (Auto) 9.3 Eos % (Auto) 3.6 Baso % (Auto) 0.6 Neut # (Auto) 5.9 Lymph # (Auto) 0.5 L Emmet # (Auto) 0.7 Eos # (Auto) 0.3 Baso # (Auto) 0.0 Neutrophils % (Manual) 80 H Lymphocytes % (Manual) 8 L Monocytes % (Manual) 10 Eosinophils % (Manual) 2 Platelet Estimate Slightly decreased L Hypochromasia (manual) Moderate Poikilocytosis (manual Moderate Anisocytosis (manual) Moderate Sodium 133 Potassium 3.1 L Chloride 100 Carbon Dioxide 25 Anion Gap 11 BUN 19 Creatinine 2.3 H Est GFR ( Amer) 35 Est GFR (Non-Af Amer) 29 POC Glucose (mg/dL) 68 Random Glucose 75 Calcium 8.6 Phosphorus 2.5 Magnesium 1.9 Total Bilirubin 0.9 AST 18 ALT 17 L D Alkaline Phosphatase 159 H Total Protein 6.4 Albumin 2.1 L Globulin 4.3 H Albumin/Globulin Ratio 0.5 L Random Vancomycin 08/17/17 08/17/17 08/17/17 06:07 07:52 10:48 WBC RBC Hgb Hct MCV MCH MCHC RDW Plt Count MPV Neut % (Auto) Lymph % (Auto) Emmet % (Auto) Eos % (Auto) Baso % (Auto) Neut # (Auto) Lymph # (Auto) Emmet # (Auto) Eos # (Auto) Baso # (Auto) Neutrophils % (Manual) Lymphocytes % (Manual) Monocytes % (Manual) Eosinophils % (Manual) Platelet Estimate Hypochromasia (manual) Poikilocytosis (manual Anisocytosis (manual) Sodium Potassium Chloride Carbon Dioxide Anion Gap BUN Creatinine Est GFR ( Amer) Est GFR (Non-Af Amer) POC Glucose (mg/dL) 83 89 Random Glucose Calcium Phosphorus Magnesium Total Bilirubin AST ALT Alkaline Phosphatase Total Protein Albumin Globulin Albumin/Globulin Ratio Random Vancomycin 11.42 08/17/17 08/17/17 12:35 16:16 WBC RBC Hgb Hct MCV MCH MCHC RDW Plt Count MPV Neut % (Auto) Lymph % (Auto) Emmet % (Auto) Eos % (Auto) Baso % (Auto) Neut # (Auto) Lymph # (Auto) Emmet # (Auto) Eos # (Auto) Baso # (Auto) Neutrophils % (Manual) Lymphocytes % (Manual) Monocytes % (Manual) Eosinophils % (Manual) Platelet Estimate Hypochromasia (manual) Poikilocytosis (manual Anisocytosis (manual) Sodium Potassium Chloride Carbon Dioxide Anion Gap BUN Creatinine Est GFR ( Amer) Est GFR (Non-Af Amer) POC Glucose (mg/dL) 72 78 Random Glucose Calcium Phosphorus Magnesium Total Bilirubin AST ALT Alkaline Phosphatase Total Protein Albumin Globulin Albumin/Globulin Ratio Random Vancomycin Critical Care Progress Note - Nutrition Nutrition: Nutrition Category Date Time Status NPO Diet [DIET] Diets 08/13/17 Breakfast Active Assessment/Plan - Assessment and Plan (Free Text) Assessment: Patient seen and examined at bedside. Above resident note reflects current management. -Patiient remains critical cc time 35 minutes - Date & Time Date: 08/17/17 Time: 20:12
--- NOTE | 2017-08-17 15:44 | RAD ---
HISTORY: And CT evaluation COMPARISON: No prior. FINDINGS: NGT has been advanced with tip lying left parasagittal upper abdomen just below EG junction. This could be advanced further. No change tracheostomy tube or right sided PICC line. LUNGS: Patchy infiltrate changes seen in the right mid to lower lung field and left lung base with bilateral effusions. Pulmonary vascular congestive changes are present. PLEURA: No significant pleural effusion identified, no pneumothorax apparent. CARDIOVASCULAR: Cardiac silhouette unchanged. OSSEOUS STRUCTURES: No significant abnormalities. VISUALIZED UPPER ABDOMEN: Normal. OTHER FINDINGS: None. IMPRESSION: NGT has been advanced and now lies left parasagittal upper abdomen just below EG junction and should probably be advanced further. No other changes. Note these findings were discussed with Dr. Hernandez at approximately 3:34 p.m. with written down and read back verification.
--- NOTE | 2017-08-17 18:04 | CP.PCM.PN ---
Subjective - Date & Time of Evaluation Date of Evaluation: 08/17/17 Time of Evaluation: 09:00 - Subjective Subjective: admitted from LTAC with MDRO sputum IV rx in progress for PEG in am prognosis remains poor Objective - Vital Signs/Intake and Output Vital Signs (last 24 hours): Temp Pulse Resp BP Pulse Ox 98.6 F 66 22 91/39 L 100 08/17/17 12:00 08/17/17 13:00 08/17/17 13:00 08/17/17 13:00 08/17/17 13:00 Intake and Output: 08/17/17 08/17/17 06:59 18:59 Intake Total 122.8 1350 Output Total 0 Balance 122.8 1350 - Medications Medications: Current Medications Acetaminophen (Tylenol 120mg Supp) 120 mg SC Q6 PRN PRN Reason: Fever >100.4 F Last Admin: 08/15/17 17:01 Dose: 120 mg Aspirin (Aspirin Chewable) 81 mg PO DAILY [facility] Last Admin: 08/14/17 11:00 Dose: Not Given Carvedilol (Coreg) 6.25 mg PO BID [facility] Last Admin: 08/17/17 10:07 Dose: Not Given Clopidogrel Bisulfate (Plavix) 75 mg PO DAILY [facility] Last Admin: 08/14/17 11:00 Dose: Not Given Docusate Sodium (Colace) 100 mg PO BID PRN PRN Reason: Constipation Famotidine (Pepcid) 20 mg IVP DAILY [facility] Last Admin: 08/17/17 10:10 Dose: 20 mg Meropenem 500 mg/ Sodium (Chloride) 100 mls @ 100 mls/hr IVPB Q12H [facility] Last Admin: 08/17/17 13:10 Dose: 100 mls/hr Vancomycin/Sodium Chloride (Vancomycin 1 Gm/Ns 200 Ml) 1 gm in 200 mls @ 133.333 mls/hr IVPB MWF [facility] Stop: 08/22/17 09:01 Last Admin: 08/17/17 16:07 Dose: 133.333 mls/hr Fluconazole (Diflucan Iv 400mg/200ml Ns) 200 mls @ 100 mls/hr IVPB Q24H [facility] Last Admin: 08/17/17 13:11 Dose: 100 mls/hr Norepinephrine Bitartrate 8 mg (/ Sodium Chloride) 258 mls @ 21.28 mls/hr IV .Q12H8M PRN; Protocol; 11 MCG/MIN PRN Reason: TITRATE PER MD ORDER Last Titration: 08/17/17 04:00 Dose: 0 mcg/min, 0 mls/hr Dextrose (Dextrose 10% In Water) 500 mls @ 30 mls/hr IV .[id number] [facility] Last Admin: 08/17/17 10:30 Dose: 30 mls/hr Amikacin Sulfate 750 mg/ (Sodium Chloride) 253 mls @ 250 mls/hr IVPB TTS [facility] Insulin Aspart (Novolog) 0 unit SC Q4H [facility] PRN Reason: Protocol Last Admin: 08/17/17 16:52 Dose: Not Given Rosuvastatin Calcium (Crestor) 2.5 mg PO HS [facility] Last Admin: 08/16/17 21:14 Dose: Not Given Sucralfate (Carafate Oral Susp) 1 gm NG Q6H [facility] Last Admin: 08/17/17 13:16 Dose: 1 gm Vitamin A (Vitamin A & D Oint Ud Foilpak) 4 ea TOP BID [facility] Last Admin: 08/17/17 10:30 Dose: 4 ea - Labs Labs: 08/17/17 04:02 08/17/17 04:02 PT 13.1 SECONDS (9.7-12.2) H 08/10/17 21:21 INR 1.2 08/10/17 21:21 APTT 46 SECONDS (21-34) H 08/10/17 21:21 - Constitutional Appears: Cachectic, Chronically Ill - Head Exam Head Exam: NORMOCEPHALIC - Eye Exam Eye Exam: PERRL. absent: Scleral icterus - ENT Exam ENT Exam: Mucous Membranes Dry - Neck Exam Neck Exam: absent: Lymphadenopathy - Respiratory Exam Respiratory Exam: Decreased Breath Sounds - Cardiovascular Exam Cardiovascular Exam: REGULAR RHYTHM - GI/Abdominal Exam GI & Abdominal Exam: Distended, Soft - Rectal Exam Rectal Exam: Deferred - Extremities Exam Extremities Exam: absent: Pedal Edema - Back Exam Back Exam: absent: CVA tenderness (L), CVA tenderness (R) - Neurological Exam Neurological Exam: Altered Assessment and Plan (1) Altered mental status Status: Acute (2) COPD (chronic obstructive pulmonary disease) Status: Acute (3) Chronic congestive heart failure Status: Acute (4) Congestive heart failure (CHF) Status: Acute (5) Fever Status: Acute (6) Pneumonia Status: Acute (7) ESRD (end stage renal disease) on dialysis Status: Chronic (8) Hypertension Status: Chronic
--- NOTE | 2017-08-17 18:26 | CT ---
PROCEDURE: CT Abdomen and Pelvis without intravenous contrast HISTORY: high residuals, sepsis COMPARISON: None. TECHNIQUE: Without contrast.. Contrast Dose: 0 Radiation dose: Total exam DLP = 1147.67 mGy-cm. This CT exam was performed using one or more of the following dose reduction techniques: Automated exposure control, adjustment of the mA and/or kV according to patient size, and/or use of iterative reconstruction technique. FINDINGS: LOWER THORAX: Bilateral lower lobe compressive atelectasis. Bilateral small pleural effusions. Extensive contrast inferiorly in the visualized esophagus, distended. Lower esophageal sphincter pathology versus gastric pull-up procedure. Please correlate. There is ground-glass opacity in the right lower lobe. Rule out pneumonia. Coronary arterial calcification. Mild cardiomegaly. LIVER: Normal size and contour. No mass. No biliary dilatation. GALLBLADDER AND BILE DUCTS: Status post cholecystectomy. PANCREAS: Unremarkable. No gross lesion or ductal dilatation. SPLEEN: Mild splenomegaly. The spleen measures approximately 13.7 cm in greatest dimension. No focal mass. ADRENALS: Unremarkable. No mass. KIDNEYS AND URETERS: Moderate bilateral renal atrophy. No hydronephrosis. Extensive renal vascular calcification. VASCULATURE: Unremarkable. No aortic aneurysm. BOWEL: No bowel obstruction. Diffuse mural thickening of the colon consistent with nonspecific colitis. Rule out C difficile. This involves the rectum as well as the remainder of the colon. There is extensive prior surgery in the upper anterior abdomen with numerous surgical clips. Please correlate with history. APPENDIX: Not identified. No secondary findings. PERITONEUM: Mild ascites. Diastases recti. LYMPH NODES: Unremarkable. No enlarged lymph nodes. BLADDER: Nondistended REPRODUCTIVE: Unremarkable prostate BONES: Mild diffuse sclerosis of bony structures consistent with renal osteodystrophy. OTHER FINDINGS: None. IMPRESSION: Findings consistent with acute nonspecific colitis. Bilateral pleural effusion and lower lobe compressive atelectasis as well as possible right lower lobe infiltrate. Distended esophageal lumen filled with retained or refluxed oral contrast material. Rule out esophageal pull up procedure. Mild splenomegaly. Renal atrophy and suspected renal osteodystrophy. Mild ascites.
[2017-08-17] MEDS: Rosuvastatin Calcium 2.5 mg Tab PO SCH (21:22)
[2017-08-18] MEDS: Meropenem 500 MG in Sodium Chloride 0.9% 100 ML IVPB SCH ×2 (01:22→13:17)
[2017-08-18] MEDS: Sucralfate 1 gm/10 ml Oral Susp UD NG SCH ×4 (01:22→21:16)
[2017-08-18 06:43] LABS: BASO % 0.9 % (0.0-2.0); EOS # 0.4 K/uL (0.0-0.7); EOS % 9.2 % (0.0-4.0); HEMOGLOBIN 8.7 g/dL (12.0-18.0); LYMPH # 0.5 K/uL (1.0-4.3); LYMPH % 11.7 % (20.0-40.0); MEAN CELL VOLUME 88.4 fL (80.0-94.0); MEAN CORPUSCULAR HEMOGLOBIN 29.6 pg (27.0-31.0); MEAN CORPUSCULAR HGB CONC 33.5 g/dL (33.0-37.0); MEAN PLATELET VOLUME 9.5 fL (7.2-11.7); MONO # 0.5 K/uL (0.0-0.8); MONO % 11.2 % (0.0-10.0); NEUT # 3.1 K/uL (1.8-7.0); RBC 2.95 Mil/uL (4.40-5.90); RED CELL DISTRIBUTION WIDTH 19.5 % (11.5-14.5); WHITE BLOOD COUNT 4.7 K/uL (4.8-10.8)
[2017-08-18 07:09] LABS: ALB/GLOB RATIO 0.5 (1.0-2.1); ALBUMIN 1.9 g/dL (3.5-5.0); CALCIUM 8.6 mg/dl (8.6-10.4)
[2017-08-18] MEDS: (Novolog) Insulin Aspart, Recombinant 100 u/ml 10 ml vial SC SCH ×4 (08:42→21:08)
[2017-08-18] MEDS: Vitamins A & D Oint UD Foilpak TOP SCH ×2 (09:35→17:48)
[2017-08-18] MEDS: Vancomycin 1 gm/NS 200 ml 1 GM/200 ML BAG IVPB SCH (09:49)
--- NOTE | 2017-08-18 09:53 | RAD ---
HISTORY: sepsis COMPARISON: Chest x-ray performed 08/17/17 TECHNIQUE: Chest, one view. FINDINGS: Right-sided PICC extends expected location of the SVC. Nasogastric tube extends beyond the hemidiaphragm likely within the stomach, distal tip excluded from view. Tracheostomy tube. Examination limited by habitus and patient obliquity. LUNGS: Moderate pulmonary venous congestion. Patchy bilateral infiltrates with lower lobe predominance. Small bilateral pleural effusions. No definite pneumothorax. CARDIOVASCULAR: Cardiomegaly. Atherosclerotic calcifications. OSSEOUS STRUCTURES: Degenerative changes of the spine. VISUALIZED UPPER ABDOMEN: Unremarkable. OTHER FINDINGS: None. IMPRESSION: Right-sided PICC extends expected location of the SVC. Nasogastric tube extends beyond the hemidiaphragm likely within the stomach, distal tip excluded from view. Tracheostomy tube. Moderate pulmonary venous congestion. Patchy bilateral infiltrates with lower lobe predominance. Small bilateral pleural effusions.
--- NOTE | 2017-08-18 12:05 | CP.PCM.PN ---
Subjective - Date & Time of Evaluation Date of Evaluation: 08/18/17 Time of Evaluation: 12:01 - Subjective Subjective: CC: Preop Clearence HPI: 62 year old man with following chronic medical conditions 1. 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 CAD s/p PCI > 12 months ago 3. ESRD on HD Holding dual antiplatelet therapy for PEG tube placement due chronic critical illness. Objective - Vital Signs/Intake and Output Vital Signs (last 24 hours): Temp Pulse Resp BP Pulse Ox 98 F 68 22 119/58 L 100 08/18/17 09:55 08/18/17 11:00 08/18/17 11:00 08/18/17 11:40 08/18/17 11:00 Intake and Output: 08/18/17 08/18/17 06:59 18:59 Intake Total 560 350 Output Total 0 0 Balance 560 350 - Medications Medications: Current Medications Acetaminophen (Tylenol 120mg Supp) 120 mg [place] Q6 PRN PRN Reason: Fever >100.4 F Last Admin: 08/15/17 17:01 Dose: 120 mg Aspirin (Aspirin Chewable) 81 mg PO DAILY [facility] Last Admin: 08/14/17 11:00 Dose: Not Given Carvedilol (Coreg) 6.25 mg PO BID [facility] Last Admin: 08/17/17 18:06 Dose: Not Given Clopidogrel Bisulfate (Plavix) 75 mg PO DAILY [facility] Last Admin: 08/14/17 11:00 Dose: Not Given Docusate Sodium (Colace) 100 mg PO BID PRN PRN Reason: Constipation Famotidine (Pepcid) 20 mg IVP DAILY [facility] Last Admin: 08/18/17 09:35 Dose: 20 mg Meropenem 500 mg/ Sodium (Chloride) 100 mls @ 100 mls/hr IVPB Q12H [facility] Last Admin: 08/18/17 01:22 Dose: 100 mls/hr Fluconazole (Diflucan Iv 400mg/200ml Ns) 200 mls @ 100 mls/hr IVPB Q24H [facility] Last Admin: 08/17/17 13:11 Dose: 100 mls/hr Norepinephrine Bitartrate 8 mg (/ Sodium Chloride) 258 mls @ 21.28 mls/hr IV .Q12H8M PRN; Protocol; 11 MCG/MIN PRN Reason: TITRATE PER MD ORDER Last Titration: 08/17/17 04:00 Dose: 0 mcg/min, 0 mls/hr Dextrose (Dextrose 10% In Water) 500 mls @ 30 mls/hr IV .[id number] [facility] Last Admin: 08/18/17 04:24 Dose: 30 mls/hr Amikacin Sulfate 750 mg/ (Sodium Chloride) 253 mls @ 250 mls/hr IVPB TTS [facility] Vancomycin/Sodium Chloride (Vancomycin 1 Gm/Ns 200 Ml) 1 gm in 200 mls @ 133.333 mls/hr IVPB TTS [facility] Stop: 08/23/17 10:01 Last Admin: 08/18/17 09:49 Dose: 133.333 mls/hr Insulin Aspart (Novolog) 0 unit SC Q4H [facility] PRN Reason: Protocol Last Admin: 08/18/17 08:42 Dose: Not Given Rosuvastatin Calcium (Crestor) 2.5 mg PO HS [facility] Last Admin: 08/17/17 21:22 Dose: 2.5 mg Sucralfate (Carafate Oral Susp) 1 gm NG Q6H [facility] Last Admin: 08/18/17 08:18 Dose: 1 gm Vitamin A (Vitamin A & D Oint Ud Foilpak) 4 ea TOP BID [facility] Last Admin: 08/18/17 09:35 Dose: 4 ea - Labs Labs: 08/18/17 06:31 08/18/17 06:31 PT 13.1 SECONDS (9.7-12.2) H 08/10/17 21:21 INR 1.2 08/10/17 21:21 APTT 46 SECONDS (21-34) H 08/10/17 21:21 - Constitutional Appears: Chronically Ill - Respiratory Exam Respiratory Exam: Decreased Breath Sounds, Rhonchi Additional comments: +Tracheostomy - Cardiovascular Exam Cardiovascular Exam: REGULAR RHYTHM, JVD, +S1, +S2 Additional comments: +Sacral edema 3+ edema - GI/Abdominal Exam GI & Abdominal Exam: Hypoactive Bowel Sounds, Normal Bowel Sounds, Pulsatile Mass. absent: Organomegaly Assessment and Plan - Assessment and Plan (Free Text) Assessment: 62 year old man with severe chronic illness and respirtory failure now s/p trachestomy acute diastolic CHF, needs more fluid removal with HD ESRD Aspriation/health care associated PNA - ABX broad spectrum ASHD no evidence of regional wall motion abnormalities, No reporting hx of PCI in past 12 months. He is acceptable risk to hold dual anti platelet therapy.
--- NOTE | 2017-08-18 12:14 | CP.PCM.PN ---
Subjective - Date & Time of Evaluation Date of Evaluation: 08/18/17 Time of Evaluation: 12:10 - Subjective Subjective: COVERING DR QUEZADA Called last pm for diarrhea, Feedings held. Off Pressors now. Off antiplatelet therapy for possible PEG placement On dialysis now. Objective - Vital Signs/Intake and Output Vital Signs (last 24 hours): Temp Pulse Resp BP Pulse Ox 98 F 68 22 119/58 L 100 08/18/17 09:55 08/18/17 11:00 08/18/17 11:00 08/18/17 11:40 08/18/17 11:00 Intake and Output: 08/18/17 08/18/17 06:59 18:59 Intake Total 560 350 Output Total 0 0 Balance 560 350 - Medications Medications: Current Medications Acetaminophen (Tylenol 120mg Supp) 120 mg HI Q6 PRN PRN Reason: Fever >100.4 F Last Admin: 08/15/17 17:01 Dose: 120 mg Aspirin (Aspirin Chewable) 81 mg PO DAILY [facility] Last Admin: 08/14/17 11:00 Dose: Not Given Carvedilol (Coreg) 6.25 mg PO BID [facility] Last Admin: 08/17/17 18:06 Dose: Not Given Clopidogrel Bisulfate (Plavix) 75 mg PO DAILY [facility] Last Admin: 08/14/17 11:00 Dose: Not Given Docusate Sodium (Colace) 100 mg PO BID PRN PRN Reason: Constipation Famotidine (Pepcid) 20 mg IVP DAILY [facility] Last Admin: 08/18/17 09:35 Dose: 20 mg Meropenem 500 mg/ Sodium (Chloride) 100 mls @ 100 mls/hr IVPB Q12H [facility] Last Admin: 08/18/17 01:22 Dose: 100 mls/hr Fluconazole (Diflucan Iv 400mg/200ml Ns) 200 mls @ 100 mls/hr IVPB Q24H [facility] Last Admin: 08/17/17 13:11 Dose: 100 mls/hr Norepinephrine Bitartrate 8 mg (/ Sodium Chloride) 258 mls @ 21.28 mls/hr IV .Q12H8M PRN; Protocol; 11 MCG/MIN PRN Reason: TITRATE PER MD ORDER Last Titration: 08/17/17 04:00 Dose: 0 mcg/min, 0 mls/hr Dextrose (Dextrose 10% In Water) 500 mls @ 30 mls/hr IV .[id number] [facility] Last Admin: 08/18/17 04:24 Dose: 30 mls/hr Amikacin Sulfate 750 mg/ (Sodium Chloride) 253 mls @ 250 mls/hr IVPB TTS [facility] Vancomycin/Sodium Chloride (Vancomycin 1 Gm/Ns 200 Ml) 1 gm in 200 mls @ 133.333 mls/hr IVPB TTS [facility] Stop: 08/23/17 10:01 Last Admin: 08/18/17 09:49 Dose: 133.333 mls/hr Insulin Aspart (Novolog) 0 unit SC Q4H [facility] PRN Reason: Protocol Last Admin: 08/18/17 08:42 Dose: Not Given Rosuvastatin Calcium (Crestor) 2.5 mg PO HS [facility] Last Admin: 08/17/17 21:22 Dose: 2.5 mg Sucralfate (Carafate Oral Susp) 1 gm NG Q6H [facility] Last Admin: 08/18/17 08:18 Dose: 1 gm Vitamin A (Vitamin A & D Oint Ud Foilpak) 4 ea TOP BID [facility] Last Admin: 08/18/17 09:35 Dose: 4 ea - Labs Labs: 08/18/17 06:31 08/18/17 06:31 PT 13.1 SECONDS (9.7-12.2) H 08/10/17 21:21 INR 1.2 08/10/17 21:21 APTT 46 SECONDS (21-34) H 08/10/17 21:21 - Constitutional Appears: Chronically Ill, Other (unresponsive) - Respiratory Exam Respiratory Exam: Decreased Breath Sounds - Cardiovascular Exam Cardiovascular Exam: REGULAR RHYTHM - GI/Abdominal Exam GI & Abdominal Exam: Soft, Hypoactive Bowel Sounds. absent: Distended, Rigid, Tenderness, Mass, Rebound Assessment and Plan (1) Diarrhea Assessment & Plan: likely due to tube feedings, sepsis, r/o C diff. Status: Acute (2) Dysphagia Assessment & Plan: For PEG tube next week when sepsis has been fully resolved. NOw off pressors. Status: Acute (3) Acute respiratory failure Assessment & Plan: On vent. Status: Acute (4) Pneumonia Assessment & Plan: Antibiotics per ID and ICU team. Clinically better. Status: Acute
[2017-08-18] MEDS: Amikacin Sulfate 750 MG in Sodium Chloride 0.9% 250 ML IVPB SCH (14:54)
[2017-08-18] MEDS: Fluconazole IV 400mg/200ml NS 200 ML IVPB SCH (14:55)
--- NOTE | 2017-08-18 16:41 | CP.PCM.PN ---
Subjective - Date & Time of Evaluation Date of Evaluation: 08/18/17 Time of Evaluation: 13:00 - Subjective Subjective: clinically same Objective - Vital Signs/Intake and Output Vital Signs (last 24 hours): Temp Pulse Resp BP Pulse Ox 99.2 F 67 22 129/60 100 08/18/17 12:55 08/18/17 13:00 08/18/17 13:00 08/18/17 13:00 08/18/17 13:00 Intake and Output: 08/18/17 08/18/17 06:59 18:59 Intake Total 560 510 Output Total 0 0 Balance 560 510 - Medications Medications: Current Medications Acetaminophen (Tylenol 120mg Supp) 120 mg [place] Q6 PRN PRN Reason: Fever >100.4 F Last Admin: 08/15/17 17:01 Dose: 120 mg Aspirin (Aspirin Chewable) 81 mg PO DAILY [facility] Last Admin: 08/14/17 11:00 Dose: Not Given Carvedilol (Coreg) 6.25 mg PO BID [facility] Last Admin: 08/18/17 10:00 Dose: Not Given Clopidogrel Bisulfate (Plavix) 75 mg PO DAILY [facility] Last Admin: 08/14/17 11:00 Dose: Not Given Docusate Sodium (Colace) 100 mg PO BID PRN PRN Reason: Constipation Famotidine (Pepcid) 20 mg IVP DAILY [facility] Last Admin: 08/18/17 09:35 Dose: 20 mg Meropenem 500 mg/ Sodium (Chloride) 100 mls @ 100 mls/hr IVPB Q12H [facility] Last Admin: 08/18/17 13:17 Dose: 100 mls/hr Fluconazole (Diflucan Iv 400mg/200ml Ns) 200 mls @ 100 mls/hr IVPB Q24H [facility] Last Admin: 08/18/17 14:55 Dose: 100 mls/hr Norepinephrine Bitartrate 8 mg (/ Sodium Chloride) 258 mls @ 21.28 mls/hr IV .Q12H8M PRN; Protocol; 11 MCG/MIN PRN Reason: TITRATE PER MD ORDER Last Titration: 08/17/17 04:00 Dose: 0 mcg/min, 0 mls/hr Dextrose (Dextrose 10% In Water) 500 mls @ 30 mls/hr IV .[id number] [facility] Last Admin: 08/18/17 04:24 Dose: 30 mls/hr Amikacin Sulfate 750 mg/ (Sodium Chloride) 253 mls @ 250 mls/hr IVPB TTS [facility] Last Admin: 08/18/17 14:54 Dose: 250 mls/hr Vancomycin/Sodium Chloride (Vancomycin 1 Gm/Ns 200 Ml) 1 gm in 200 mls @ 133.333 mls/hr IVPB TTS [facility] Stop: 08/23/17 10:01 Last Admin: 08/18/17 09:49 Dose: 133.333 mls/hr Insulin Aspart (Novolog) 0 unit SC Q4H [facility] PRN Reason: Protocol Last Admin: 08/18/17 13:55 Dose: Not Given Rosuvastatin Calcium (Crestor) 2.5 mg PO HS [facility] Last Admin: 08/17/17 21:22 Dose: 2.5 mg Sucralfate (Carafate Oral Susp) 1 gm NG Q6H [facility] Last Admin: 08/18/17 13:16 Dose: 1 gm Vitamin A (Vitamin A & D Oint Ud Foilpak) 4 ea TOP BID [facility] Last Admin: 08/18/17 09:35 Dose: 4 ea - Labs Labs: 08/18/17 06:31 08/18/17 06:31 PT 13.1 SECONDS (9.7-12.2) H 08/10/17 21:21 INR 1.2 08/10/17 21:21 APTT 46 SECONDS (21-34) H 08/10/17 21:21 - Constitutional Appears: Well - Head Exam Head Exam: ATRAUMATIC, NORMAL INSPECTION, NORMOCEPHALIC - Eye Exam Eye Exam: EOMI, Normal appearance, PERRL Pupil Exam: NORMAL ACCOMODATION, PERRL - ENT Exam ENT Exam: Mucous Membranes Moist, Normal Exam - Neck Exam Neck Exam: Full ROM, Normal Inspection. absent: Lymphadenopathy - Respiratory Exam Respiratory Exam: Decreased Breath Sounds - Cardiovascular Exam Cardiovascular Exam: REGULAR RHYTHM, +S1, +S2 - GI/Abdominal Exam GI & Abdominal Exam: Soft, Diminished Bowel Sounds - Rectal Exam Rectal Exam: Deferred
--- NOTE | 2017-08-18 17:42 | CP.PCM.PN ---
Subjective - Date & Time of Evaluation Date of Evaluation: 08/18/17 Time of Evaluation: 17:42 Objective - Vital Signs/Intake and Output Vital Signs (last 24 hours): Temp Pulse Resp BP Pulse Ox 99.2 F 67 22 129/60 100 08/18/17 12:55 08/18/17 13:00 08/18/17 13:00 08/18/17 13:00 08/18/17 13:00 Intake and Output: 08/18/17 08/18/17 06:59 18:59 Intake Total 560 510 Output Total 0 0 Balance 560 510 - Medications Medications: Current Medications Acetaminophen (Tylenol 120mg Supp) 120 mg [place] Q6 PRN PRN Reason: Fever >100.4 F Last Admin: 08/15/17 17:01 Dose: 120 mg Aspirin (Aspirin Chewable) 81 mg PO DAILY [facility] Last Admin: 08/14/17 11:00 Dose: Not Given Carvedilol (Coreg) 6.25 mg PO BID [facility] Last Admin: 08/18/17 10:00 Dose: Not Given Clopidogrel Bisulfate (Plavix) 75 mg PO DAILY [facility] Last Admin: 08/14/17 11:00 Dose: Not Given Docusate Sodium (Colace) 100 mg PO BID PRN PRN Reason: Constipation Famotidine (Pepcid) 20 mg IVP DAILY [facility] Last Admin: 08/18/17 09:35 Dose: 20 mg Meropenem 500 mg/ Sodium (Chloride) 100 mls @ 100 mls/hr IVPB Q12H [facility] Last Admin: 08/18/17 13:17 Dose: 100 mls/hr Fluconazole (Diflucan Iv 400mg/200ml Ns) 200 mls @ 100 mls/hr IVPB Q24H [facility] Last Admin: 08/18/17 14:55 Dose: 100 mls/hr Norepinephrine Bitartrate 8 mg (/ Sodium Chloride) 258 mls @ 21.28 mls/hr IV .Q12H8M PRN; Protocol; 11 MCG/MIN PRN Reason: TITRATE PER MD ORDER Last Titration: 08/17/17 04:00 Dose: 0 mcg/min, 0 mls/hr Dextrose (Dextrose 10% In Water) 500 mls @ 30 mls/hr IV .[id number] [facility] Last Admin: 08/18/17 04:24 Dose: 30 mls/hr Amikacin Sulfate 750 mg/ (Sodium Chloride) 253 mls @ 250 mls/hr IVPB TTS [facility] Last Admin: 08/18/17 14:54 Dose: 250 mls/hr Vancomycin/Sodium Chloride (Vancomycin 1 Gm/Ns 200 Ml) 1 gm in 200 mls @ 133.333 mls/hr IVPB TTS [facility] Stop: 08/23/17 10:01 Last Admin: 08/18/17 09:49 Dose: 133.333 mls/hr Insulin Aspart (Novolog) 0 unit SC Q4H [facility] PRN Reason: Protocol Last Admin: 08/18/17 17:40 Dose: Not Given Rosuvastatin Calcium (Crestor) 2.5 mg PO HS [facility] Last Admin: 08/17/17 21:22 Dose: 2.5 mg Sucralfate (Carafate Oral Susp) 1 gm NG Q6H [facility] Last Admin: 08/18/17 13:16 Dose: 1 gm Vitamin A (Vitamin A & D Oint Ud Foilpak) 4 ea TOP BID [facility] Last Admin: 08/18/17 09:35 Dose: 4 ea - Labs Labs: 08/18/17 06:31 08/18/17 06:31 PT 13.1 SECONDS (9.7-12.2) H 08/10/17 21:21 INR 1.2 08/10/17 21:21 APTT 46 SECONDS (21-34) H 08/10/17 21:21
[2017-08-18] MEDS: Rosuvastatin Calcium 2.5 mg Tab PO SCH (21:16)
[2017-08-19] MEDS: (Novolog) Insulin Aspart, Recombinant 100 u/ml 10 ml vial SC SCH ×6 (01:00→21:00)
[2017-08-19] MEDS: Meropenem 500 MG in Sodium Chloride 0.9% 100 ML IVPB SCH ×2 (02:21→13:07)
[2017-08-19] MEDS: Sucralfate 1 gm/10 ml Oral Susp UD NG SCH ×4 (02:21→20:15)
[2017-08-19 04:44] LABS: ABG ALLEN TEST POS; ARTERIAL BLOOD GAS HCO3 28.5 mmol/L (21-28); ARTERIAL BLOOD GAS O2 SAT 99.7 % (95-98); ARTERIAL BLOOD GAS PCO2 31 mm/Hg (35-45); ARTERIAL BLOOD GAS PH 7.54 (7.35-7.45); ARTERIAL BLOOD GAS PO2 185 mm/Hg (80-100); ARTERIAL BLOOD GAS TCO2 27.5 mmol/L (22-28)
[2017-08-19 07:22] LABS: BASO # 0.1 K/uL (0.0-0.2); BASO % 1.4 % (0.0-2.0); EOS # 0.4 K/uL (0.0-0.7); EOS % 9.2 % (0.0-4.0); HEMOGLOBIN 8.6 g/dL (12.0-18.0); LYMPH # 0.6 K/uL (1.0-4.3); LYMPH % 16.3 % (20.0-40.0); MEAN CELL VOLUME 87.2 fL (80.0-94.0); MEAN CORPUSCULAR HEMOGLOBIN 29.1 pg (27.0-31.0); MEAN CORPUSCULAR HGB CONC 33.3 g/dL (33.0-37.0); MEAN PLATELET VOLUME 9.6 fL (7.2-11.7); MONO # 0.5 K/uL (0.0-0.8); MONO % 14.1 % (0.0-10.0); NEUT # 2.3 K/uL (1.8-7.0); NRBC % 0.1 % (0.0-2.0); RBC 2.96 Mil/uL (4.40-5.90); RED CELL DISTRIBUTION WIDTH 19.2 % (11.5-14.5); WHITE BLOOD COUNT 3.9 K/uL (4.8-10.8)
[2017-08-19 08:14] LABS: ALB/GLOB RATIO 0.5 (1.0-2.1); ALBUMIN 1.9 g/dL (3.5-5.0); CALCIUM 8.2 mg/dl (8.6-10.4); MAGNESIUM 1.8 mg/dL (1.6-2.3)
--- NOTE | 2017-08-19 10:07 | RAD ---
HISTORY: eval infiltrate COMPARISON: Chest x-ray performed 08/18/17 TECHNIQUE: Chest, one view. FINDINGS: Right-sided PICC extends to the proximal SVC. Tracheostomy tube. Nasogastric tube extends expected location of the stomach. LUNGS: Moderate pulmonary venous congestion. Patchy bilateral infiltrates with lower lobe predominance. Small bilateral pleural effusions. No definite pneumothorax. CARDIOVASCULAR: Cardiomegaly. OSSEOUS STRUCTURES: Degenerative changes. VISUALIZED UPPER ABDOMEN: Unremarkable. OTHER FINDINGS: None. IMPRESSION: Right-sided PICC, tracheostomy tube, nasogastric tube. Moderate pulmonary venous congestion. Patchy bilateral infiltrates with lower lobe predominance. Small bilateral pleural effusions.
[2017-08-19] MEDS: Vitamins A & D Oint UD Foilpak TOP SCH ×2 (12:36→18:39)
--- NOTE | 2017-08-19 12:50 | CP.PCM.PN ---
Subjective - Date & Time of Evaluation Date of Evaluation: 08/19/17 Time of Evaluation: 12:47 - Subjective Subjective: COVERING DR QUEZADA No new c/o, diarrhea less per nursing staff Repeat C diff still pending, negative 2/5 Objective - Vital Signs/Intake and Output Vital Signs (last 24 hours): Temp Pulse Resp BP Pulse Ox 98.6 F 67 22 125/50 L 100 08/19/17 12:00 08/19/17 12:00 08/19/17 12:00 08/19/17 12:00 08/19/17 12:00 Intake and Output: 08/19/17 08/19/17 06:59 18:59 Intake Total 540 300 Output Total 0 0 Balance 540 300 - Medications Medications: Current Medications Acetaminophen (Tylenol 120mg Supp) 120 mg [place] Q6 PRN PRN Reason: Fever >100.4 F Last Admin: 08/18/17 21:18 Dose: 120 mg Aspirin (Aspirin Chewable) 81 mg PO DAILY [facility] Last Admin: 08/19/17 09:51 Dose: 81 mg Carvedilol (Coreg) 6.25 mg PO BID [facility] Last Admin: 08/19/17 09:51 Dose: 6.25 mg Clopidogrel Bisulfate (Plavix) 75 mg PO DAILY [facility] Last Admin: 08/19/17 09:51 Dose: 75 mg Docusate Sodium (Colace) 100 mg PO BID PRN PRN Reason: Constipation Famotidine (Pepcid) 20 mg IVP DAILY [facility] Last Admin: 08/19/17 09:51 Dose: 20 mg Meropenem 500 mg/ Sodium (Chloride) 100 mls @ 100 mls/hr IVPB Q12H [facility] Last Admin: 08/19/17 02:21 Dose: 100 mls/hr Fluconazole (Diflucan Iv 400mg/200ml Ns) 200 mls @ 100 mls/hr IVPB Q24H [facility] Last Admin: 08/18/17 14:55 Dose: 100 mls/hr Dextrose (Dextrose 10% In Water) 500 mls @ 30 mls/hr IV .[id number] [facility] Last Admin: 08/18/17 21:10 Dose: 30 mls/hr Amikacin Sulfate 750 mg/ (Sodium Chloride) 253 mls @ 250 mls/hr IVPB TTS [facility] Last Admin: 08/18/17 14:54 Dose: 250 mls/hr Vancomycin/Sodium Chloride (Vancomycin 1 Gm/Ns 200 Ml) 1 gm in 200 mls @ 133.333 mls/hr IVPB TTS [facility] Stop: 08/23/17 10:01 Last Admin: 08/18/17 09:49 Dose: 133.333 mls/hr Potassium Chloride (Potassium Chloride 20 Meq/100 Ml) 20 meq in 100 mls @ 50 mls/hr IVPB ONCE ONE Stop: 08/19/17 15:29 Insulin Aspart (Novolog) 0 unit SC Q4H [facility] PRN Reason: Protocol Last Admin: 08/19/17 12:37 Dose: Not Given Potassium Chloride (Potassium Chloride Oral Soln) 40 meq PO ONCE ONE Stop: 08/19/17 13:01 Rosuvastatin Calcium (Crestor) 2.5 mg PO HS [facility] Last Admin: 08/18/17 21:16 Dose: 2.5 mg Sucralfate (Carafate Oral Susp) 1 gm NG Q6H [facility] Last Admin: 08/19/17 09:51 Dose: 1 gm Vitamin A (Vitamin A & D Oint Ud Foilpak) 4 ea TOP BID [facility] Last Admin: 08/19/17 12:36 Dose: Not Given - Labs Labs: 08/19/17 07:12 08/19/17 07:12 PT 13.1 SECONDS (9.7-12.2) H 08/10/17 21:21 INR 1.2 08/10/17 21:21 APTT 46 SECONDS (21-34) H 08/10/17 21:21 - Constitutional Appears: Other (Intubated and non-responsive) - Respiratory Exam Respiratory Exam: Decreased Breath Sounds - Cardiovascular Exam Cardiovascular Exam: RRR - GI/Abdominal Exam GI & Abdominal Exam: Soft, Diminished Bowel Sounds. absent: Rigid, Tenderness, Mass, Rebound - Extremities Exam Extremities Exam: Pedal Edema Assessment and Plan (1) Diarrhea Assessment & Plan: Awaiting stool studies. Consider resuming tube feedings Status: Acute (2) Dysphagia Assessment & Plan: For PEG tube this week when medically stable. Dr Quezada will address scheduling. Status: Acute (3) Acute respiratory failure Status: Acute (4) Pneumonia Status: Acute
[2017-08-19] MEDS ORDERED: Potassium Chloride 20 mEq/15 ml LIQ UD PO ONE (13:00)
[2017-08-19] MEDS: Fluconazole IV 400mg/200ml NS 200 ML IVPB SCH (13:07)
[2017-08-19 13:30] LABS: ALB/GLOB RATIO 0.5 (1.0-2.1); ALBUMIN 1.9 g/dL (3.5-5.0); MAGNESIUM 1.8 mg/dL (1.6-2.3)
--- NOTE | 2017-08-19 14:40 | CP.PCM.PN ---
Subjective - Date & Time of Evaluation Date of Evaluation: 08/19/17 Time of Evaluation: 12:40 - Subjective Subjective: clinically same Objective - Vital Signs/Intake and Output Vital Signs (last 24 hours): Temp Pulse Resp BP Pulse Ox 98.6 F 69 22 122/45 L 100 08/19/17 12:00 08/19/17 14:00 08/19/17 14:00 08/19/17 14:00 08/19/17 14:00 Intake and Output: 08/19/17 08/19/17 06:59 18:59 Intake Total 540 550 Output Total 0 0 Balance 540 550 - Medications Medications: Current Medications Acetaminophen (Tylenol 120mg Supp) 120 mg [place] Q6 PRN PRN Reason: Fever >100.4 F Last Admin: 08/18/17 21:18 Dose: 120 mg Aspirin (Aspirin Chewable) 81 mg PO DAILY [facility] Last Admin: 08/19/17 09:51 Dose: 81 mg Carvedilol (Coreg) 6.25 mg PO BID [facility] Last Admin: 08/19/17 09:51 Dose: 6.25 mg Clopidogrel Bisulfate (Plavix) 75 mg PO DAILY [facility] Last Admin: 08/19/17 09:51 Dose: 75 mg Docusate Sodium (Colace) 100 mg PO BID PRN PRN Reason: Constipation Famotidine (Pepcid) 20 mg IVP DAILY [facility] Last Admin: 08/19/17 09:51 Dose: 20 mg Meropenem 500 mg/ Sodium (Chloride) 100 mls @ 100 mls/hr IVPB Q12H [facility] Last Admin: 08/19/17 13:07 Dose: 100 mls/hr Fluconazole (Diflucan Iv 400mg/200ml Ns) 200 mls @ 100 mls/hr IVPB Q24H [facility] Last Admin: 08/19/17 13:07 Dose: 100 mls/hr Dextrose (Dextrose 10% In Water) 500 mls @ 30 mls/hr IV .[id number] [facility] Last Admin: 08/19/17 13:07 Dose: 30 mls/hr Amikacin Sulfate 750 mg/ (Sodium Chloride) 253 mls @ 250 mls/hr IVPB TTS [facility] Last Admin: 08/18/17 14:54 Dose: 250 mls/hr Vancomycin/Sodium Chloride (Vancomycin 1 Gm/Ns 200 Ml) 1 gm in 200 mls @ 133.333 mls/hr IVPB TTS [facility] Stop: 08/23/17 10:01 Last Admin: 08/18/17 09:49 Dose: 133.333 mls/hr Potassium Chloride (Potassium Chloride 20 Meq/100 Ml) 20 meq in 100 mls @ 50 mls/hr IVPB ONCE ONE Stop: 08/19/17 15:29 Last Admin: 08/19/17 13:18 Dose: 50 mls/hr Insulin Aspart (Novolog) 0 unit SC Q4H [facility] PRN Reason: Protocol Last Admin: 08/19/17 12:37 Dose: Not Given Rosuvastatin Calcium (Crestor) 2.5 mg PO HS [facility] Last Admin: 08/18/17 21:16 Dose: 2.5 mg Sucralfate (Carafate Oral Susp) 1 gm NG Q6H [facility] Last Admin: 08/19/17 13:17 Dose: 1 gm Vitamin A (Vitamin A & D Oint Ud Foilpak) 4 ea TOP BID [facility] Last Admin: 08/19/17 12:36 Dose: Not Given - Labs Labs: 08/19/17 07:12 08/19/17 13:15 PT 13.1 SECONDS (9.7-12.2) H 08/10/17 21:21 INR 1.2 08/10/17 21:21 APTT 46 SECONDS (21-34) H 08/10/17 21:21 - Constitutional Appears: Well - Head Exam Head Exam: ATRAUMATIC, NORMAL INSPECTION, NORMOCEPHALIC - Eye Exam Eye Exam: EOMI, Normal appearance, PERRL Pupil Exam: NORMAL ACCOMODATION, PERRL - ENT Exam ENT Exam: Mucous Membranes Moist, Normal Exam - Neck Exam Neck Exam: Full ROM, Normal Inspection. absent: Lymphadenopathy - Respiratory Exam Respiratory Exam: Decreased Breath Sounds - Cardiovascular Exam Cardiovascular Exam: REGULAR RHYTHM, +S1, +S2 - GI/Abdominal Exam GI & Abdominal Exam: Soft, Diminished Bowel Sounds - Rectal Exam Rectal Exam: Deferred
--- NOTE | 2017-08-19 16:02 | CP.PCM.PN ---
Subjective - Date & Time of Evaluation Date of Evaluation: 08/19/17 Time of Evaluation: 10:00 - Subjective Subjective: INTUBATED CONFUSED ON VENT VIA TRACH AFEBRILE Objective - Vital Signs/Intake and Output Vital Signs (last 24 hours): Temp Pulse Resp BP Pulse Ox 98.6 F 69 22 122/45 L 100 08/19/17 12:00 08/19/17 14:00 08/19/17 14:00 08/19/17 14:00 08/19/17 14:00 Intake and Output: 08/19/17 08/19/17 06:59 18:59 Intake Total 540 550 Output Total 0 0 Balance 540 550 - Medications Medications: Current Medications Acetaminophen (Tylenol 120mg Supp) 120 mg [place] Q6 PRN PRN Reason: Fever >100.4 F Last Admin: 08/18/17 21:18 Dose: 120 mg Aspirin (Aspirin Chewable) 81 mg PO DAILY [facility] Last Admin: 08/19/17 09:51 Dose: 81 mg Carvedilol (Coreg) 6.25 mg PO BID [facility] Last Admin: 08/19/17 09:51 Dose: 6.25 mg Clopidogrel Bisulfate (Plavix) 75 mg PO DAILY [facility] Last Admin: 08/19/17 09:51 Dose: 75 mg Docusate Sodium (Colace) 100 mg PO BID PRN PRN Reason: Constipation Famotidine (Pepcid) 20 mg IVP DAILY [facility] Last Admin: 08/19/17 09:51 Dose: 20 mg Meropenem 500 mg/ Sodium (Chloride) 100 mls @ 100 mls/hr IVPB Q12H [facility] Last Admin: 08/19/17 13:07 Dose: 100 mls/hr Fluconazole (Diflucan Iv 400mg/200ml Ns) 200 mls @ 100 mls/hr IVPB Q24H [facility] Last Admin: 08/19/17 13:07 Dose: 100 mls/hr Dextrose (Dextrose 10% In Water) 500 mls @ 30 mls/hr IV .[id number] [facility] Last Admin: 08/19/17 13:07 Dose: 30 mls/hr Amikacin Sulfate 750 mg/ (Sodium Chloride) 253 mls @ 250 mls/hr IVPB TTS [facility] Last Admin: 08/18/17 14:54 Dose: 250 mls/hr Vancomycin/Sodium Chloride (Vancomycin 1 Gm/Ns 200 Ml) 1 gm in 200 mls @ 133.333 mls/hr IVPB TTS [facility] Stop: 08/23/17 10:01 Last Admin: 08/18/17 09:49 Dose: 133.333 mls/hr Insulin Aspart (Novolog) 0 unit SC Q4H [facility] PRN Reason: Protocol Last Admin: 08/19/17 12:37 Dose: Not Given Rosuvastatin Calcium (Crestor) 2.5 mg PO HS [facility] Last Admin: 08/18/17 21:16 Dose: 2.5 mg Sucralfate (Carafate Oral Susp) 1 gm NG Q6H [facility] Last Admin: 08/19/17 13:17 Dose: 1 gm Vitamin A (Vitamin A & D Oint Ud Foilpak) 4 ea TOP BID [facility] Last Admin: 08/19/17 12:36 Dose: Not Given - Labs Labs: 08/19/17 07:12 08/19/17 13:15 PT 13.1 SECONDS (9.7-12.2) H 08/10/17 21:21 INR 1.2 08/10/17 21:21 APTT 46 SECONDS (21-34) H 08/10/17 21:21 - Constitutional Appears: Non-toxic, Confused, Cachectic, Chronically Ill - Head Exam Head Exam: NORMOCEPHALIC - Eye Exam Eye Exam: PERRL. absent: Scleral icterus - ENT Exam ENT Exam: Mucous Membranes Dry - Neck Exam Neck Exam: absent: Lymphadenopathy - Respiratory Exam Respiratory Exam: Decreased Breath Sounds - Cardiovascular Exam Cardiovascular Exam: REGULAR RHYTHM - GI/Abdominal Exam GI & Abdominal Exam: Distended - Rectal Exam Rectal Exam: Deferred - Exam Exam: NORMAL INSPECTION - Extremities Exam Extremities Exam: absent: Pedal Edema - Back Exam Back Exam: absent: CVA tenderness (L), CVA tenderness (R) Assessment and Plan (1) Altered mental status Status: Acute (2) COPD (chronic obstructive pulmonary disease) Status: Acute (3) Chronic congestive heart failure Status: Acute (4) Congestive heart failure (CHF) Status: Acute (5) Fever Status: Acute (6) Pneumonia Status: Acute (7) ESRD (end stage renal disease) on dialysis Status: Chronic (8) Hypertension Status: Chronic
--- NOTE | 2017-08-19 16:29 | CP.PCM.PN ---
Objective - Vital Signs/Intake and Output Vital Signs (last 24 hours): Temp Pulse Resp BP Pulse Ox 98.6 F 69 22 122/45 L 100 08/19/17 12:00 08/19/17 14:00 08/19/17 14:00 08/19/17 14:00 08/19/17 14:00 Intake and Output: 08/19/17 08/19/17 06:59 18:59 Intake Total 540 550 Output Total 0 0 Balance 540 550 - Medications Medications: Current Medications Acetaminophen (Tylenol 120mg Supp) 120 mg [place] Q6 PRN PRN Reason: Fever >100.4 F Last Admin: 08/18/17 21:18 Dose: 120 mg Aspirin (Aspirin Chewable) 81 mg PO DAILY [facility] Last Admin: 08/19/17 09:51 Dose: 81 mg Carvedilol (Coreg) 6.25 mg PO BID [facility] Last Admin: 08/19/17 09:51 Dose: 6.25 mg Clopidogrel Bisulfate (Plavix) 75 mg PO DAILY [facility] Last Admin: 08/19/17 09:51 Dose: 75 mg Docusate Sodium (Colace) 100 mg PO BID PRN PRN Reason: Constipation Famotidine (Pepcid) 20 mg IVP DAILY [facility] Last Admin: 08/19/17 09:51 Dose: 20 mg Meropenem 500 mg/ Sodium (Chloride) 100 mls @ 100 mls/hr IVPB Q12H [facility] Last Admin: 08/19/17 13:07 Dose: 100 mls/hr Fluconazole (Diflucan Iv 400mg/200ml Ns) 200 mls @ 100 mls/hr IVPB Q24H [facility] Last Admin: 08/19/17 13:07 Dose: 100 mls/hr Dextrose (Dextrose 10% In Water) 500 mls @ 30 mls/hr IV .[id number] [facility] Last Admin: 08/19/17 13:07 Dose: 30 mls/hr Amikacin Sulfate 750 mg/ (Sodium Chloride) 253 mls @ 250 mls/hr IVPB TTS [facility] Last Admin: 08/18/17 14:54 Dose: 250 mls/hr Vancomycin/Sodium Chloride (Vancomycin 1 Gm/Ns 200 Ml) 1 gm in 200 mls @ 133.333 mls/hr IVPB TTS [facility] Stop: 08/23/17 10:01 Last Admin: 08/18/17 09:49 Dose: 133.333 mls/hr Insulin Aspart (Novolog) 0 unit SC Q4H [facility] PRN Reason: Protocol Last Admin: 08/19/17 12:37 Dose: Not Given Rosuvastatin Calcium (Crestor) 2.5 mg PO HS [facility] Last Admin: 08/18/17 21:16 Dose: 2.5 mg Sucralfate (Carafate Oral Susp) 1 gm NG Q6H [facility] Last Admin: 08/19/17 13:17 Dose: 1 gm Vitamin A (Vitamin A & D Oint Ud Foilpak) 4 ea TOP BID [facility] Last Admin: 08/19/17 12:36 Dose: Not Given - Labs Labs: 08/19/17 07:12 08/19/17 13:15 PT 13.1 SECONDS (9.7-12.2) H 08/10/17 21:21 INR 1.2 08/10/17 21:21 APTT 46 SECONDS (21-34) H 08/10/17 21:21
[2017-08-19] MEDS ORDERED: Potassium Phosphate 15 MMOLE in Sodium Chloride 0.9% 250 ML IVPB ONE (18:07)
[2017-08-19] MEDS: Potassium Chloride 20 mEq/15 ml LIQ UD PO SCH ×2 (18:39→21:54)
--- NOTE | 2017-08-19 18:39 | CP.CCUPN ---
CCU Subjective - Physician Review Subjective (Free Text): Patient seen and examined at bedside. Patient on ventilator not on pressors, tolerating tube feeds and IV antibiotics 08/19/17 18:34 CCU Objective - Vital Signs / Intake & Output Vital Signs (Last 4 hours): Vital Signs Temp Pulse Resp BP Pulse Ox 08/19/17 18:00 70 22 116/48 L 100 08/19/17 17:00 67 22 108/52 L 100 08/19/17 16:00 99.2 F 69 22 121/52 L 100 08/19/17 15:00 68 22 118/50 L 100 Intake and Output (Last 8hrs): Intake & Output 08/19/17 08/19/17 08/19/17 06:59 14:59 22:59 Intake Total 400 550 200 Output Total 0 0 0 Balance 400 550 200 Weight 160 lb Intake: Intake, IV Amount 240 390 140 Right Distal Port 150 50 Right PICC 240 240 90 Tube Feeding 160 160 60 Output: Urine 0 0 0 Urine, Voided 0 0 0 Other: # Bowel Movements 1 1 - Physical Exam Physical Exam Limitations: Positive for: Altered Mental Status Cardiovascular: Positive for: Normal S1, S2, Rub Abdomen: Positive for: Normal Bowel Sounds. Negative for: Peritoneal Signs - Medications Active Medications: Active Medications Generic Name Dose Route Start Last Admin Trade Name Freq PRN Reason Stop Dose Admin Acetaminophen 120 mg 08/14/17 04:10 08/18/17 21:18 Tylenol 120mg Supp UT 120 mg Q6 PRN Administration Fever >100.4 F Aspirin 81 mg 08/11/17 10:00 08/19/17 09:51 Aspirin Chewable PO 81 mg DAILY [facility] Administration Carvedilol 6.25 mg 08/11/17 10:00 08/19/17 09:51 Coreg PO 6.25 mg BID [facility] Administration Clopidogrel Bisulfate 75 mg 08/11/17 10:00 08/19/17 09:51 Plavix PO 75 mg DAILY [facility] Administration Docusate Sodium 100 mg 08/10/17 20:10 Colace PO BID PRN Constipation Famotidine 20 mg 08/11/17 10:00 08/19/17 09:51 Pepcid IVP 20 mg DAILY [facility] Administration Meropenem 500 mg/ Sodium 100 mls @ 100 mls/hr 08/15/17 13:15 08/19/17 13:07 Chloride IVPB 100 mls/hr Q12H [facility] Administration Fluconazole 200 mls @ 100 mls/hr 08/15/17 14:00 08/19/17 13:07 Diflucan Iv 400mg/200ml Ns IVPB 100 mls/hr Q24H [facility] Administration Dextrose 500 mls @ 30 mls/hr 08/17/17 10:30 08/19/17 13:07 Dextrose 10% In Water IV 30 mls/hr .[id number] [facility] Administration Amikacin Sulfate 750 mg/ 253 mls @ 250 mls/hr 08/18/17 10:00 08/18/17 14:54 Sodium Chloride IVPB 250 mls/hr TTS [facility] Administration Vancomycin/Sodium Chloride 1 gm in 200 mls @ 133.333 mls/hr 08/18/17 10:00 09:49 Vancomycin 1 Gm/Ns 200 Ml IVPB 08/23/17 10:01 133.333 mls/hr TTS [facility] Administration Potassium Phosphate 15 mmole/ 255 mls @ 42.5 mls/hr 08/19/17 18:07 Sodium Chloride IVPB 08/20/17 00:06 ONCE ONE Insulin Aspart 0 unit 08/10/17 21:00 08/19/17 12:37 Novolog SC Not Given Q4H [facility] Protocol Potassium Chloride 40 meq 08/19/17 18:15 Potassium Chloride Oral Soln PO 08/20/17 02:16 Q4H [facility] Rosuvastatin Calcium 2.5 mg 08/11/17 22:00 08/18/17 21:16 Crestor PO 2.5 mg HS [facility] Administration Sucralfate 1 gm 08/10/17 20:15 08/19/17 13:17 Carafate Oral Susp NG 1 gm Q6H [facility] Administration Vitamin A 4 ea 08/13/17 18:00 08/19/17 12:36 Vitamin A & D Oint Ud Foilpak TOP Not Given BID [facility] - Patient Studies Lab Studies: Microbiology Studies 08/15/17 12:30 Blood Culture - Preliminary Blood NO GROWTH AFTER 4 DAYS 08/15/17 12:00 Blood Culture - Preliminary Blood NO GROWTH AFTER 4 DAYS 08/17/17 10:15 Gram Stain - Final Trachasp Sputum Culture - Final Acinetobacter Baumannii 08/16/17 04:00 Blood Culture - Preliminary Blood NO GROWTH AFTER 3 DAYS 08/16/17 04:00 Blood Culture - Preliminary Blood NO GROWTH AFTER 3 DAYS Lab Studies 08/19/17 08/19/17 08/19/17 Range/Units Unknown 16:03 13:15 WBC (4.8-10.8) K/uL RBC (4.40-5.90) Mil/uL Hgb (12.0-18.0) g/dL Hct (35.0-51.0) % MCV (80.0-94.0) fL MCH (27.0-31.0) pg MCHC (33.0-37.0) g/dL RDW (11.5-14.5) % Plt Count (130-400) K/uL MPV (7.2-11.7) fL Neut % (Auto) (50.0-75.0) % Lymph % (Auto) (20.0-40.0) % Brooks % (Auto) (0.0-10.0) % Eos % (Auto) (0.0-4.0) % Baso % (Auto) (0.0-2.0) % Neut # (Auto) (1.8-7.0) K/uL Lymph # (Auto) (1.0-4.3) K/uL Brooks # (Auto) (0.0-0.8) K/uL Eos # (Auto) (0.0-0.7) K/uL Baso # (Auto) (0.0-0.2) K/uL Differential Comment Puncture Site pCO2 (35-45) mm/Hg pO2 (80-100) mm/Hg HCO3 (21-28) mmol/L ABG pH (7.35-7.45) ABG Total CO2 (22-28) mmol/L ABG O2 Saturation (95-98) % ABG Base Excess (-2.0-3.0) mmol/L Juan Test ABG Potassium (3.6-5.2) mmol/L A-a O2 Difference mm/Hg Respiratory Index Sodium 131 L (132-148) mmol/l Chloride 97 L (98-107) mmol/L Glucose (75-110) mg/dl Lactate (0.7-2.1) mmol/L Vent Mode Mechanical Rate FiO2 % Tidal Volume PEEP Potassium 2.9 L (3.6-5.2) mmol/L Carbon Dioxide 29 (22-30) mmol/L Anion Gap 8 L (10-20) BUN 15 (9-20) mg/dL Creatinine 2.4 H (0.8-1.5) mg/dL Est GFR ( Amer) 33 Est GFR (Non-Af Amer) 28 POC Glucose (mg/dL) 119 H (65-110) mg/dL Random Glucose 102 (75-110) mg/dL Calcium 8.0 L (8.6-10.4) mg/dl Phosphorus 1.5 L (2.5-4.5) mg/dL Magnesium 1.8 (1.6-2.3) mg/dL Total Bilirubin 0.9 (0.2-1.3) mg/dL AST 20 (17-59) U/L ALT 15 L (21-72) U/L Alkaline Phosphatase 216 H (38-126) U/L Total Protein 5.9 L (6.3-8.3) g/dL Albumin 1.9 L (3.5-5.0) g/dL Globulin 4.1 H (2.2-3.9) gm/dL Albumin/Globulin Ratio 0.5 L (1.0-2.1) Arterial Blood Potassium (3.6-5.2) mmol/L C. difficile Ag & Toxin Negative (NEGATIVE) 08/19/17 08/19/17 08/19/17 Range/Units 12:27 07:54 07:12 WBC (4.8-10.8) K/uL RBC (4.40-5.90) Mil/uL Hgb (12.0-18.0) g/dL Hct (35.0-51.0) % MCV (80.0-94.0) fL MCH (27.0-31.0) pg MCHC (33.0-37.0) g/dL RDW (11.5-14.5) % Plt Count (130-400) K/uL MPV (7.2-11.7) fL Neut % (Auto) (50.0-75.0) % Lymph % (Auto) (20.0-40.0) % Brooks % (Auto) (0.0-10.0) % Eos % (Auto) (0.0-4.0) % Baso % (Auto) (0.0-2.0) % Neut # (Auto) (1.8-7.0) K/uL Lymph # (Auto) (1.0-4.3) K/uL Brooks # (Auto) (0.0-0.8) K/uL Eos # (Auto) (0.0-0.7) K/uL Baso # (Auto) (0.0-0.2) K/uL Differential Comment Puncture Site pCO2 (35-45) mm/Hg pO2 (80-100) mm/Hg HCO3 (21-28) mmol/L ABG pH (7.35-7.45) ABG Total CO2 (22-28) mmol/L ABG O2 Saturation (95-98) % ABG Base Excess (-2.0-3.0) mmol/L Juan Test ABG Potassium (3.6-5.2) mmol/L A-a O2 Difference mm/Hg Respiratory Index Sodium 131 L (132-148) mmol/l Chloride 98 (98-107) mmol/L Glucose (75-110) mg/dl Lactate (0.7-2.1) mmol/L Vent Mode Mechanical Rate FiO2 % Tidal Volume PEEP Potassium 2.8 L (3.6-5.2) mmol/L Carbon Dioxide 29 (22-30) mmol/L Anion Gap 7 L (10-20) BUN 14 (9-20) mg/dL Creatinine 2.2 H (0.8-1.5) mg/dL Est GFR ( Amer) 37 Est GFR (Non-Af Amer) 31 POC Glucose (mg/dL) 96 90 (65-110) mg/dL Random Glucose 82 (75-110) mg/dL Calcium 8.2 L (8.6-10.4) mg/dl Phosphorus 1.5 L (2.5-4.5) mg/dL Magnesium 1.8 (1.6-2.3) mg/dL Total Bilirubin 0.9 (0.2-1.3) mg/dL AST 25 (17-59) U/L ALT 16 L (21-72) U/L Alkaline Phosphatase 242 H (38-126) U/L Total Protein 5.9 L (6.3-8.3) g/dL Albumin 1.9 L (3.5-5.0) g/dL Globulin 4.0 H (2.2-3.9) gm/dL Albumin/Globulin Ratio 0.5 L (1.0-2.1) Arterial Blood Potassium (3.6-5.2) mmol/L C. difficile Ag & Toxin (NEGATIVE) 08/19/17 08/19/17 08/19/17 Range/Units 07:12 06:25 04:25 WBC 3.9 L (4.8-10.8) K/uL RBC 2.96 L (4.40-5.90) Mil/uL Hgb 8.6 L (12.0-18.0) g/dL Hct 25.8 L (35.0-51.0) % MCV 87.2 (80.0-94.0) fL MCH 29.1 (27.0-31.0) pg MCHC 33.3 (33.0-37.0) g/dL RDW 19.2 H (11.5-14.5) % Plt Count 102 L (130-400) K/uL MPV 9.6 (7.2-11.7) fL Neut % (Auto) 59.0 (50.0-75.0) % Lymph % (Auto) 16.3 L (20.0-40.0) % Brooks % (Auto) 14.1 H (0.0-10.0) % Eos % (Auto) 9.2 H (0.0-4.0) % Baso % (Auto) 1.4 (0.0-2.0) % Neut # (Auto) 2.3 (1.8-7.0) K/uL Lymph # (Auto) 0.6 L (1.0-4.3) K/uL Brooks # (Auto) 0.5 (0.0-0.8) K/uL Eos # (Auto) 0.4 (0.0-0.7) K/uL Baso # (Auto) 0.1 (0.0-0.2) K/uL Differential Comment Puncture Site Rr pCO2 31 L (35-45) mm/Hg pO2 185 H (80-100) mm/Hg HCO3 28.5 H (21-28) mmol/L ABG pH 7.54 H (7.35-7.45) ABG Total CO2 27.5 (22-28) mmol/L ABG O2 Saturation 99.7 H (95-98) % ABG Base Excess 4.5 H (-2.0-3.0) mmol/L Juan Test Pos ABG Potassium 2.7 L (3.6-5.2) mmol/L A-a O2 Difference 133.0 mm/Hg Respiratory Index 0.7 Sodium 138.0 (132-148) mmol/l Chloride 106.0 (98-107) mmol/L Glucose 75 (75-110) mg/dl Lactate 0.8 (0.7-2.1) mmol/L Vent Mode Prvc Mechanical Rate 22 FiO2 50.0 % Tidal Volume 450 PEEP 5 Potassium (3.6-5.2) mmol/L Carbon Dioxide (22-30) mmol/L Anion Gap (10-20) BUN (9-20) mg/dL Creatinine (0.8-1.5) mg/dL Est GFR ( Amer) Est GFR (Non-Af Amer) POC Glucose (mg/dL) 85 (65-110) mg/dL Random Glucose (75-110) mg/dL Calcium (8.6-10.4) mg/dl Phosphorus (2.5-4.5) mg/dL Magnesium (1.6-2.3) mg/dL Total Bilirubin (0.2-1.3) mg/dL AST (17-59) U/L ALT (21-72) U/L Alkaline Phosphatase (38-126) U/L Total Protein (6.3-8.3) g/dL Albumin (3.5-5.0) g/dL Globulin (2.2-3.9) gm/dL Albumin/Globulin Ratio (1.0-2.1) Arterial Blood Potassium 2.7 L (3.6-5.2) mmol/L C. difficile Ag & Toxin (NEGATIVE) 08/19/17 08/18/17 08/18/17 Range/Units 00:02 20:02 20:00 WBC (4.8-10.8) K/uL RBC (4.40-5.90) Mil/uL Hgb (12.0-18.0) g/dL Hct (35.0-51.0) % MCV (80.0-94.0) fL MCH (27.0-31.0) pg MCHC (33.0-37.0) g/dL RDW (11.5-14.5) % Plt Count (130-400) K/uL MPV (7.2-11.7) fL Neut % (Auto) (50.0-75.0) % Lymph % (Auto) (20.0-40.0) % Brooks % (Auto) (0.0-10.0) % Eos % (Auto) (0.0-4.0) % Baso % (Auto) (0.0-2.0) % Neut # (Auto) (1.8-7.0) K/uL Lymph # (Auto) (1.0-4.3) K/uL Brooks # (Auto) (0.0-0.8) K/uL Eos # (Auto) (0.0-0.7) K/uL Baso # (Auto) (0.0-0.2) K/uL Differential Comment Puncture Site pCO2 (35-45) mm/Hg pO2 (80-100) mm/Hg HCO3 (21-28) mmol/L ABG pH (7.35-7.45) ABG Total CO2 (22-28) mmol/L ABG O2 Saturation (95-98) % ABG Base Excess (-2.0-3.0) mmol/L Juan Test ABG Potassium (3.6-5.2) mmol/L A-a O2 Difference mm/Hg Respiratory Index Sodium (132-148) mmol/l Chloride (98-107) mmol/L Glucose (75-110) mg/dl Lactate (0.7-2.1) mmol/L Vent Mode Mechanical Rate FiO2 % Tidal Volume PEEP Potassium (3.6-5.2) mmol/L Carbon Dioxide (22-30) mmol/L Anion Gap (10-20) BUN (9-20) mg/dL Creatinine (0.8-1.5) mg/dL Est GFR ( Amer) Est GFR (Non-Af Amer) POC Glucose (mg/dL) 81 75 69 (65-110) mg/dL Random Glucose (75-110) mg/dL Calcium (8.6-10.4) mg/dl Phosphorus (2.5-4.5) mg/dL Magnesium (1.6-2.3) mg/dL Total Bilirubin (0.2-1.3) mg/dL AST (17-59) U/L ALT (21-72) U/L Alkaline Phosphatase (38-126) U/L Total Protein (6.3-8.3) g/dL Albumin (3.5-5.0) g/dL Globulin (2.2-3.9) gm/dL Albumin/Globulin Ratio (1.0-2.1) Arterial Blood Potassium (3.6-5.2) mmol/L C. difficile Ag & Toxin (NEGATIVE) Laboratory Results - last 24 hr 08/18/17 08/18/17 08/19/17 20:00 20:02 00:02 WBC RBC Hgb Hct MCV MCH MCHC RDW Plt Count MPV Neut % (Auto) Lymph % (Auto) Brooks % (Auto) Eos % (Auto) Baso % (Auto) Neut # (Auto) Lymph # (Auto) Brooks # (Auto) Eos # (Auto) Baso # (Auto) Differential Comment Puncture Site pCO2 pO2 HCO3 ABG pH ABG Total CO2 ABG O2 Saturation ABG Base Excess Juan Test ABG Potassium A-a O2 Difference Respiratory Index Sodium Chloride Glucose Lactate Vent Mode Mechanical Rate FiO2 Tidal Volume PEEP Potassium Carbon Dioxide Anion Gap BUN Creatinine Est GFR ( Amer) Est GFR (Non-Af Amer) POC Glucose (mg/dL) 69 75 81 Random Glucose Calcium Phosphorus Magnesium Total Bilirubin AST ALT Alkaline Phosphatase Total Protein Albumin Globulin Albumin/Globulin Ratio Arterial Blood Potassium C. difficile Ag & Toxin 08/19/17 08/19/17 08/19/17 04:25 06:25 07:12 WBC 3.9 L RBC 2.96 L Hgb 8.6 L Hct 25.8 L MCV 87.2 MCH 29.1 MCHC 33.3 RDW 19.2 H Plt Count 102 L MPV 9.6 Neut % (Auto) 59.0 Lymph % (Auto) 16.3 L Brooks % (Auto) 14.1 H Eos % (Auto) 9.2 H Baso % (Auto) 1.4 Neut # (Auto) 2.3 Lymph # (Auto) 0.6 L Brooks # (Auto) 0.5 Eos # (Auto) 0.4 Baso # (Auto) 0.1 Differential Comment Puncture Site Rr pCO2 31 L pO2 185 H HCO3 28.5 H ABG pH 7.54 H ABG Total CO2 27.5 ABG O2 Saturation 99.7 H ABG Base Excess 4.5 H Juan Test Pos ABG Potassium 2.7 L A-a O2 Difference 133.0 Respiratory Index 0.7 Sodium 138.0 Chloride 106.0 Glucose 75 Lactate 0.8 Vent Mode Prvc Mechanical Rate 22 FiO2 50.0 Tidal Volume 450 PEEP 5 Potassium Carbon Dioxide Anion Gap BUN Creatinine Est GFR ( Amer) Est GFR (Non-Af Amer) POC Glucose (mg/dL) 85 Random Glucose Calcium Phosphorus Magnesium Total Bilirubin AST ALT Alkaline Phosphatase Total Protein Albumin Globulin Albumin/Globulin Ratio Arterial Blood Potassium 2.7 L C. difficile Ag & Toxin 08/19/17 08/19/17 08/19/17 07:12 07:54 12:27 WBC RBC Hgb Hct MCV MCH MCHC RDW Plt Count MPV Neut % (Auto) Lymph % (Auto) Brooks % (Auto) Eos % (Auto) Baso % (Auto) Neut # (Auto) Lymph # (Auto) Brooks # (Auto) Eos # (Auto) Baso # (Auto) Differential Comment Puncture Site pCO2 pO2 HCO3 ABG pH ABG Total CO2 ABG O2 Saturation ABG Base Excess Juan Test ABG Potassium A-a O2 Difference Respiratory Index Sodium 131 L Chloride 98 Glucose Lactate Vent Mode Mechanical Rate FiO2 Tidal Volume PEEP Potassium 2.8 L Carbon Dioxide 29 Anion Gap 7 L BUN 14 Creatinine 2.2 H Est GFR ( Amer) 37 Est GFR (Non-Af Amer) 31 POC Glucose (mg/dL) 90 96 Random Glucose 82 Calcium 8.2 L Phosphorus 1.5 L Magnesium 1.8 Total Bilirubin 0.9 AST 25 ALT 16 L Alkaline Phosphatase 242 H Total Protein 5.9 L Albumin 1.9 L Globulin 4.0 H Albumin/Globulin Ratio 0.5 L Arterial Blood Potassium C. difficile Ag & Toxin 08/19/17 08/19/17 08/19/17 13:15 16:03 Unknown WBC RBC Hgb Hct MCV MCH MCHC RDW Plt Count MPV Neut % (Auto) Lymph % (Auto) Brooks % (Auto) Eos % (Auto) Baso % (Auto) Neut # (Auto) Lymph # (Auto) Brooks # (Auto) Eos # (Auto) Baso # (Auto) Differential Comment Puncture Site pCO2 pO2 HCO3 ABG pH ABG Total CO2 ABG O2 Saturation ABG Base Excess Juan Test ABG Potassium A-a O2 Difference Respiratory Index Sodium 131 L Chloride 97 L Glucose Lactate Vent Mode Mechanical Rate FiO2 Tidal Volume PEEP Potassium 2.9 L Carbon Dioxide 29 Anion Gap 8 L BUN 15 Creatinine 2.4 H Est GFR ( Amer) 33 Est GFR (Non-Af Amer) 28 POC Glucose (mg/dL) 119 H Random Glucose 102 Calcium 8.0 L Phosphorus 1.5 L Magnesium 1.8 Total Bilirubin 0.9 AST 20 ALT 15 L Alkaline Phosphatase 216 H Total Protein 5.9 L Albumin 1.9 L Globulin 4.1 H Albumin/Globulin Ratio 0.5 L Arterial Blood Potassium C. difficile Ag & Toxin Negative Fingerstick Blood Sugar Results: 119 Critical Care Progress Note - Ventilator Checklist Head of Bed 30 Degrees: Yes Daily Sedation Vacation: Yes Daily Assessment of Readiness to Wean: Yes Daily Spontaneous Breathing Trial: Yes PUD Prophalyxis: Yes DVT Prophylaxis: Yes Oral Care with Chlorhexidine Gluconate {CHG}: Yes - Nutrition Nutrition: Nutrition Category Date Time Status NPO Diet [DIET] Diets 08/13/17 Breakfast Active Assessment/Plan - Assessment and Plan (Free Text) Assessment: 62M aspiration s/p trach, awaiting peg tube -chronic Respiratory failure: continue ventilation via trach, CPAP trials daily -sepsis: MDRO Gram neg rods: continue abx as per ID, no ton pressors - continue tube feeds, pending PEG -Renal: ESRD :([place]) HD: T, Th, Sat -check BGM q6hrs -thrombocytopenia: resolving, HIT panel not back, use SCD and switch to eliquis 2.5 mg BID -continue PUD ppx -check and replace all electrolytes - full code Patient has chronic respiratory failure and currently being treated with ABX awaiting PEG placement. - Date & Time Date: 08/19/17 Time: 18:39
[2017-08-19] MEDS: Rosuvastatin Calcium 2.5 mg Tab PO SCH (21:55)
--- NOTE | 2017-08-19 23:38 | CP.PCM.PN ---
Subjective - Date & Time of Evaluation Date of Evaluation: 08/19/17 Time of Evaluation: 15:05 - Subjective Subjective: Event reviewed Objective - Vital Signs/Intake and Output Vital Signs (last 24 hours): Temp Pulse Resp BP Pulse Ox 100.6 F H 70 22 123/48 L 100 08/19/17 22:53 08/19/17 19:00 08/19/17 19:00 08/19/17 19:00 08/19/17 19:00 Intake and Output: 08/19/17 08/20/17 18:59 06:59 Intake Total 800 150 Output Total 0 0 Balance 800 150 - Medications Medications: Current Medications Acetaminophen (Tylenol 120mg Supp) 120 mg WA Q6 PRN PRN Reason: Fever >100.4 F Last Admin: 08/19/17 22:53 Dose: 120 mg Aspirin (Aspirin Chewable) 81 mg PO DAILY [facility] Last Admin: 08/19/17 09:51 Dose: 81 mg Carvedilol (Coreg) 6.25 mg PO BID [facility] Last Admin: 08/19/17 18:39 Dose: 6.25 mg Clopidogrel Bisulfate (Plavix) 75 mg PO DAILY [facility] Last Admin: 08/19/17 09:51 Dose: 75 mg Docusate Sodium (Colace) 100 mg PO BID PRN PRN Reason: Constipation Famotidine (Pepcid) 20 mg IVP DAILY [facility] Last Admin: 08/19/17 09:51 Dose: 20 mg Meropenem 500 mg/ Sodium (Chloride) 100 mls @ 100 mls/hr IVPB Q12H [facility] Last Admin: 08/19/17 13:07 Dose: 100 mls/hr Fluconazole (Diflucan Iv 400mg/200ml Ns) 200 mls @ 100 mls/hr IVPB Q24H [facility] Last Admin: 08/19/17 13:07 Dose: 100 mls/hr Dextrose (Dextrose 10% In Water) 500 mls @ 30 mls/hr IV .[id number] [facility] Last Admin: 08/19/17 13:07 Dose: 30 mls/hr Amikacin Sulfate 750 mg/ (Sodium Chloride) 253 mls @ 250 mls/hr IVPB TTS [facility] Last Admin: 08/18/17 14:54 Dose: 250 mls/hr Vancomycin/Sodium Chloride (Vancomycin 1 Gm/Ns 200 Ml) 1 gm in 200 mls @ 133.333 mls/hr IVPB TTS [facility] Stop: 08/23/17 10:01 Last Admin: 08/18/17 09:49 Dose: 133.333 mls/hr Potassium Phosphate 15 mmole/ (Sodium Chloride) 255 mls @ 42.5 mls/hr IVPB ONCE ONE Stop: 08/20/17 00:06 Last Admin: 08/19/17 18:40 Dose: 42.5 mls/hr Potassium Chloride (Potassium Chloride 20 Meq/100 Ml) 20 meq in 100 mls @ 50 mls/hr IVPB Q2 [facility] Stop: 08/20/17 03:59 Insulin Aspart (Novolog) 0 unit SC Q4H [facility] PRN Reason: Protocol Last Admin: 08/19/17 21:00 Dose: Not Given Potassium Chloride (Potassium Chloride Oral Soln) 40 meq PO Q4H [facility] Stop: 08/20/17 02:16 Last Admin: 08/19/17 21:54 Dose: 40 meq Rosuvastatin Calcium (Crestor) 2.5 mg PO HS [facility] Last Admin: 08/19/17 21:55 Dose: 2.5 mg Sucralfate (Carafate Oral Susp) 1 gm NG Q6H [facility] Last Admin: 08/19/17 20:15 Dose: 1 gm Vitamin A (Vitamin A & D Oint Ud Foilpak) 4 ea TOP BID [facility] Last Admin: 08/19/17 18:39 Dose: 1 ea - Labs Labs: 08/19/17 07:12 08/19/17 13:15 PT 13.1 SECONDS (9.7-12.2) H 08/10/17 21:21 INR 1.2 08/10/17 21:21 APTT 46 SECONDS (21-34) H 08/10/17 21:21 - Constitutional Appears: Chronically Ill - Respiratory Exam Respiratory Exam: NORMAL BREATHING PATTERN Additional comments: Tracheostmy - Cardiovascular Exam Cardiovascular Exam: REGULAR RHYTHM, RRR, +S1, +S2 (+3 Edema ) - GI/Abdominal Exam GI & Abdominal Exam: Normal Bowel Sounds. absent: Organomegaly Assessment and Plan - Assessment and Plan (Free Text) Assessment: 62 year old man with severe chronic illness and respirtory failure now s/p trachestomy acute diastolic CHF, needs more fluid removal with HD ESRD Aspriation/health care associated PNA - ABX broad spectrum ASHD no evidence of regional wall motion abnormalities, No reporting hx of PCI in past 12 months. He is acceptable risk to hold dual anti platelet therapy.
[2017-08-20] MEDS: Meropenem 500 MG in Sodium Chloride 0.9% 100 ML IVPB SCH ×2 (01:00→14:57)
[2017-08-20] MEDS: Potassium Chloride 20 mEq/15 ml LIQ UD PO SCH ×2 (02:02→02:05)
[2017-08-20] MEDS: Sucralfate 1 gm/10 ml Oral Susp UD NG SCH ×4 (02:13→20:20)
[2017-08-20] MEDS: (Novolog) Insulin Aspart, Recombinant 100 u/ml 10 ml vial SC SCH ×6 (05:00→21:00)
[2017-08-20 06:46] LABS: BASO % 1.1 % (0.0-2.0); EOS # 0.4 K/uL (0.0-0.7); EOS % 11.1 % (0.0-4.0); HEMOGLOBIN 8.2 g/dL (12.0-18.0); LYMPH # 0.8 K/uL (1.0-4.3); LYMPH % 21.1 % (20.0-40.0); MEAN CELL VOLUME 86.3 fL (80.0-94.0); MEAN CORPUSCULAR HEMOGLOBIN 27.5 pg (27.0-31.0); MEAN CORPUSCULAR HGB CONC 31.8 g/dL (33.0-37.0); MONO # 0.7 K/uL (0.0-0.8); MONO % 17.1 % (0.0-10.0); NEUT % 49.6 % (50.0-75.0); RBC 2.99 Mil/uL (4.40-5.90); RED CELL DISTRIBUTION WIDTH 18.8 % (11.5-14.5)
--- NOTE | 2017-08-20 08:45 | RAD ---
Chest x-ray single frontal view History: Infiltrate. Comparison: 08/19/2017 Findings: Lines and tubes in stable position. Biapical pleural thickening with upper lobe granulomatous changes. Prominent diffuse increased interstitial lung markings. Right hilar prominence. Prominent consolidative changes in the right mid lower lung zone as well the left lung base with small bilateral pleural effusions. Cardiomegaly. Degenerative changes in the spine and shoulders. Calcification at the aortic knob. Impression: No significant interval change.
[2017-08-20 08:46] LABS: ALB/GLOB RATIO 0.5 (1.0-2.1); ALBUMIN 1.9 g/dL (3.5-5.0); CALCIUM 8.1 mg/dl (8.6-10.4); MAGNESIUM 1.8 mg/dL (1.6-2.3)
[2017-08-20] MEDS: Vitamins A & D Oint UD Foilpak TOP SCH ×2 (09:11→18:57)
--- NOTE | 2017-08-20 10:30 | CP.PCM.PN ---
Subjective - Date & Time of Evaluation Date of Evaluation: 08/20/17 Time of Evaluation: 08:00 - Subjective Subjective: sputum + Acinetobacter MDRO IV rx in progress Objective - Vital Signs/Intake and Output Vital Signs (last 24 hours): Temp Pulse Resp BP Pulse Ox 99 F 61 22 122/55 L 100 08/20/17 04:00 08/20/17 08:00 08/20/17 08:00 08/20/17 06:00 08/20/17 08:00 Intake and Output: 08/20/17 08/20/17 06:59 18:59 Intake Total 760 30 Output Total 0 Balance 760 30 - Medications Medications: Current Medications Acetaminophen (Tylenol 120mg Supp) 120 mg SC Q6 PRN PRN Reason: Fever >100.4 F Last Admin: 08/19/17 22:53 Dose: 120 mg Aspirin (Aspirin Chewable) 81 mg PO DAILY [facility] Last Admin: 08/20/17 09:28 Dose: 81 mg Carvedilol (Coreg) 6.25 mg PO BID [facility] Last Admin: 08/20/17 09:10 Dose: 6.25 mg Clopidogrel Bisulfate (Plavix) 75 mg PO DAILY [facility] Last Admin: 08/20/17 09:10 Dose: 75 mg Docusate Sodium (Colace) 100 mg PO BID PRN PRN Reason: Constipation Famotidine (Pepcid) 20 mg IVP DAILY [facility] Last Admin: 08/20/17 09:10 Dose: 20 mg Meropenem 500 mg/ Sodium (Chloride) 100 mls @ 100 mls/hr IVPB Q12H [facility] Last Admin: 08/20/17 01:00 Dose: 100 mls/hr Fluconazole (Diflucan Iv 400mg/200ml Ns) 200 mls @ 100 mls/hr IVPB Q24H [facility] Last Admin: 08/19/17 13:07 Dose: 100 mls/hr Dextrose (Dextrose 10% In Water) 500 mls @ 30 mls/hr IV .[id number] [facility] Last Admin: 08/20/17 09:13 Dose: 30 mls/hr Amikacin Sulfate 750 mg/ (Sodium Chloride) 253 mls @ 250 mls/hr IVPB TTS [facility] Last Admin: 08/18/17 14:54 Dose: 250 mls/hr Vancomycin/Sodium Chloride (Vancomycin 1 Gm/Ns 200 Ml) 1 gm in 200 mls @ 133.333 mls/hr IVPB TTS [facility] Stop: 08/23/17 10:01 Last Admin: 08/18/17 09:49 Dose: 133.333 mls/hr Insulin Aspart (Novolog) 0 unit SC Q4H [facility] PRN Reason: Protocol Last Admin: 08/20/17 09:06 Dose: Not Given Rosuvastatin Calcium (Crestor) 2.5 mg PO HS [facility] Last Admin: 08/19/17 21:55 Dose: 2.5 mg Sucralfate (Carafate Oral Susp) 1 gm NG Q6H [facility] Last Admin: 08/20/17 08:35 Dose: 1 gm Vitamin A (Vitamin A & D Oint Ud Foilpak) 4 ea TOP BID [facility] Last Admin: 08/20/17 09:11 Dose: 4 ea - Labs Labs: 08/20/17 06:38 08/20/17 08:19 PT 13.1 SECONDS (9.7-12.2) H 08/10/17 21:21 INR 1.2 08/10/17 21:21 APTT 46 SECONDS (21-34) H 08/10/17 21:21 - Constitutional Appears: Confused, Cachectic, Chronically Ill - Head Exam Head Exam: ATRAUMATIC - Eye Exam Eye Exam: PERRL. absent: Scleral icterus - ENT Exam ENT Exam: Mucous Membranes Dry - Neck Exam Neck Exam: absent: Lymphadenopathy - Respiratory Exam Respiratory Exam: Decreased Breath Sounds - Cardiovascular Exam Cardiovascular Exam: REGULAR RHYTHM - GI/Abdominal Exam GI & Abdominal Exam: Distended, Soft - Rectal Exam Rectal Exam: Deferred - Exam Exam: NORMAL INSPECTION - Extremities Exam Extremities Exam: absent: Pedal Edema - Back Exam Back Exam: absent: CVA tenderness (L), CVA tenderness (R), paraspinal tenderness - Neurological Exam Neurological Exam: Altered Assessment and Plan (1) Altered mental status Status: Acute (2) COPD (chronic obstructive pulmonary disease) Status: Acute (3) Chronic congestive heart failure Status: Acute (4) Congestive heart failure (CHF) Status: Acute (5) Fever Status: Acute (6) Pneumonia Status: Acute (7) ESRD (end stage renal disease) on dialysis Status: Chronic (8) Hypertension Status: Chronic - Assessment and Plan (Free Text) Assessment: iv rx reordered prognosis guarded
--- NOTE | 2017-08-20 10:54 | CP.CCUPN ---
CCU Subjective - Physician Review Subjective (Free Text): 08/20/17 10:54 Patient seen and examined at bedside this A.M. per nursing no acute events occurred overnight. Patient s/p Trach and awaiting Peg tube placement. 08/20/17 10:58 Pt is a 62M who was a direct ICU admit from [facility] for Trach and PEG placement on 08/10/17. Trach was done on 08/14/[address] Deshpande. Expected to have Peg Tube once cleared. Pt was febrile overnight up to 100.6F. Today pt remains minimally responsive. PMHx: ESRD, CAD s/p 2 stents. hypothyroid, CHF, HTN, COPD, IDDM, chronic dysphagia SHx: coronary stent x 2 Allergies: tetanus and diphtheria toxoids Family: none Social: none 08/20/17 17:02 Critical Care Time Spent (in minutes): 45 CCU Objective - Vital Signs / Intake & Output Vital Signs (Last 4 hours): Vital Signs Pulse Resp Pulse Ox 08/20/17 08:00 61 22 100 08/20/17 07:00 60 22 97 Intake and Output (Last 8hrs): Intake & Output 08/19/17 08/20/17 08/20/17 22:59 06:59 14:59 Intake Total 450 560 30 Output Total 0 0 Balance 450 560 30 Intake: Intake, IV Amount 290 440 30 Right Distal Port 50 200 Right PICC 240 240 30 Tube Feeding 160 120 Output: Urine 0 0 Urine, Voided 0 0 Other: # Bowel Movements 1 1 - Physical Exam Head: Positive for: Atraumatic, Normocephalic Pupils: Positive for: PERRL Extroacular Muscles: Positive for: EOMI Conjunctiva: Positive for: Normal Mouth: Positive for: Moist Mucous Membranes Respiratory/Chest: Positive for: Clear to Auscultation, Good Air Exchange. Negative for: Accessory Muscle Use Cardiovascular: Positive for: Normal S1, S2, Rub Abdomen: Positive for: Normal Bowel Sounds. Negative for: Peritoneal Signs Upper Extremity: Positive for: Normal Inspection. Negative for: Cyanosis, Edema Lower Extremity: Positive for: Normal Inspection. Negative for: Edema - Medications Active Medications: Active Medications Generic Name Dose Route Start Last Admin Trade Name Freq PRN Reason Stop Dose Admin Acetaminophen 120 mg 08/14/17 04:10 08/19/17 22:53 Tylenol 120mg Supp AL 120 mg Q6 PRN Administration Fever >100.4 F Aspirin 81 mg 08/11/17 10:00 08/20/17 09:28 Aspirin Chewable PO 81 mg DAILY [facility] Administration Carvedilol 6.25 mg 08/11/17 10:00 08/20/17 09:10 Coreg PO 6.25 mg BID [facility] Administration Clopidogrel Bisulfate 75 mg 08/11/17 10:00 08/20/17 09:10 Plavix PO 75 mg DAILY [facility] Administration Docusate Sodium 100 mg 08/10/17 20:10 Colace PO BID PRN Constipation Famotidine 20 mg 08/11/17 10:00 08/20/17 09:10 Pepcid IVP 20 mg DAILY [facility] Administration Meropenem 500 mg/ Sodium 100 mls @ 100 mls/hr 08/15/17 13:15 08/20/17 01:00 Chloride IVPB 100 mls/hr Q12H [facility] Administration Fluconazole 200 mls @ 100 mls/hr 08/15/17 14:00 08/19/17 13:07 Diflucan Iv 400mg/200ml Ns IVPB 100 mls/hr Q24H [facility] Administration Dextrose 500 mls @ 30 mls/hr 08/17/17 10:30 08/20/17 09:13 Dextrose 10% In Water IV 30 mls/hr .[id number] [facility] Administration Amikacin Sulfate 750 mg/ 253 mls @ 250 mls/hr 08/18/17 10:00 08/18/17 14:54 Sodium Chloride IVPB 250 mls/hr TTS [facility] Administration Vancomycin/Sodium Chloride 1 gm in 200 mls @ 133.333 mls/hr 08/18/17 10:00 09:49 Vancomycin 1 Gm/Ns 200 Ml IVPB 08/23/17 10:01 133.333 mls/hr TTS [facility] Administration Insulin Aspart 0 unit 08/10/17 21:00 08/20/17 09:06 Novolog SC Not Given Q4H [facility] Protocol Rosuvastatin Calcium 2.5 mg 08/11/17 22:00 08/19/17 21:55 Crestor PO 2.5 mg HS [facility] Administration Sucralfate 1 gm 08/10/17 20:15 08/20/17 08:35 Carafate Oral Susp NG 1 gm Q6H [facility] Administration Vitamin A 4 ea 08/13/17 18:00 08/20/17 09:11 Vitamin A & D Oint Ud Foilpak TOP 4 ea BID [facility] Administration - Patient Studies Lab Studies: Microbiology Studies 08/16/17 04:00 Blood Culture - Preliminary Blood NO GROWTH AFTER 4 DAYS 08/16/17 04:00 Blood Culture - Preliminary Blood NO GROWTH AFTER 4 DAYS 08/15/17 12:30 Blood Culture - Preliminary Blood NO GROWTH AFTER 4 DAYS 08/15/17 12:00 Blood Culture - Preliminary Blood NO GROWTH AFTER 4 DAYS 08/17/17 10:15 Gram Stain - Final Trachasp Sputum Culture - Final Acinetobacter Baumannii Lab Studies 08/20/17 08/20/17 08/20/17 Range/Units 08:19 08:12 06:38 WBC 4.0 L (4.8-10.8) K/uL RBC 2.99 L (4.40-5.90) Mil/uL Hgb 8.2 L (12.0-18.0) g/dL Hct 25.8 L (35.0-51.0) % MCV 86.3 (80.0-94.0) fL MCH 27.5 (27.0-31.0) pg MCHC 31.8 L (33.0-37.0) g/dL RDW 18.8 H (11.5-14.5) % Plt Count 107 L (130-400) K/uL MPV 10.0 (7.2-11.7) fL Neut % (Auto) 49.6 L (50.0-75.0) % Lymph % (Auto) 21.1 (20.0-40.0) % [place] % (Auto) 17.1 H (0.0-10.0) % Eos % (Auto) 11.1 H (0.0-4.0) % Baso % (Auto) 1.1 (0.0-2.0) % Neut # (Auto) 2.0 (1.8-7.0) K/uL Lymph # (Auto) 0.8 L (1.0-4.3) K/uL [place] # (Auto) 0.7 (0.0-0.8) K/uL Eos # (Auto) 0.4 (0.0-0.7) K/uL Baso # (Auto) 0.0 (0.0-0.2) K/uL Differential Comment Sodium 131 L (132-148) mmol/L Potassium 5.4 H (3.6-5.2) mmol/L Chloride 101 (98-107) mmol/L Carbon Dioxide 28 (22-30) mmol/L Anion Gap 8 L (10-20) BUN 19 (9-20) mg/dL Creatinine 2.8 H (0.8-1.5) mg/dL Est GFR ( Amer) 28 Est GFR (Non-Af Amer) 23 POC Glucose (mg/dL) 95 (65-110) mg/dL Random Glucose 95 (75-110) mg/dL Calcium 8.1 L (8.6-10.4) mg/dl Phosphorus 2.1 L (2.5-4.5) mg/dL Magnesium 1.8 (1.6-2.3) mg/dL Total Bilirubin 0.8 (0.2-1.3) mg/dL AST 17 (17-59) U/L ALT 10 L D (21-72) U/L Alkaline Phosphatase 198 H (38-126) U/L Total Protein 6.2 L (6.3-8.3) g/dL Albumin 1.9 L (3.5-5.0) g/dL Globulin 4.2 H (2.2-3.9) gm/dL Albumin/Globulin Ratio 0.5 L (1.0-2.1) C. difficile Ag & Toxin (NEGATIVE) 08/20/17 08/20/17 08/19/17 Range/Units 06:35 00:15 Unknown WBC (4.8-10.8) K/uL RBC (4.40-5.90) Mil/uL Hgb (12.0-18.0) g/dL Hct (35.0-51.0) % MCV (80.0-94.0) fL MCH (27.0-31.0) pg MCHC (33.0-37.0) g/dL RDW (11.5-14.5) % Plt Count (130-400) K/uL MPV (7.2-11.7) fL Neut % (Auto) (50.0-75.0) % Lymph % (Auto) (20.0-40.0) % [place]oun % (Auto) (0.0-10.0) % Eos % (Auto) (0.0-4.0) % Baso % (Auto) (0.0-2.0) % Neut # (Auto) (1.8-7.0) K/uL Lymph # (Auto) (1.0-4.3) K/uL [place] # (Auto) (0.0-0.8) K/uL Eos # (Auto) (0.0-0.7) K/uL Baso # (Auto) (0.0-0.2) K/uL Differential Comment Sodium (132-148) mmol/L Potassium (3.6-5.2) mmol/L Chloride (98-107) mmol/L Carbon Dioxide (22-30) mmol/L Anion Gap (10-20) BUN (9-20) mg/dL Creatinine (0.8-1.5) mg/dL Est GFR ( Amer) Est GFR (Non-Af Amer) POC Glucose (mg/dL) 109 103 (65-110) mg/dL Random Glucose (75-110) mg/dL Calcium (8.6-10.4) mg/dl Phosphorus (2.5-4.5) mg/dL Magnesium (1.6-2.3) mg/dL Total Bilirubin (0.2-1.3) mg/dL AST (17-59) U/L ALT (21-72) U/L Alkaline Phosphatase (38-126) U/L Total Protein (6.3-8.3) g/dL Albumin (3.5-5.0) g/dL Globulin (2.2-3.9) gm/dL Albumin/Globulin Ratio (1.0-2.1) C. difficile Ag & Toxin Negative (NEGATIVE) 08/19/17 08/19/17 08/19/17 Range/Units 19:49 16:03 13:15 WBC (4.8-10.8) K/uL RBC (4.40-5.90) Mil/uL Hgb (12.0-18.0) g/dL Hct (35.0-51.0) % MCV (80.0-94.0) fL MCH (27.0-31.0) pg MCHC (33.0-37.0) g/dL RDW (11.5-14.5) % Plt Count (130-400) K/uL MPV (7.2-11.7) fL Neut % (Auto) (50.0-75.0) % Lymph % (Auto) (20.0-40.0) % [place]oun % (Auto) (0.0-10.0) % Eos % (Auto) (0.0-4.0) % Baso % (Auto) (0.0-2.0) % Neut # (Auto) (1.8-7.0) K/uL Lymph # (Auto) (1.0-4.3) K/uL [place] # (Auto) (0.0-0.8) K/uL Eos # (Auto) (0.0-0.7) K/uL Baso # (Auto) (0.0-0.2) K/uL Differential Comment Sodium 131 L (132-148) mmol/L Potassium 2.9 L (3.6-5.2) mmol/L Chloride 97 L (98-107) mmol/L Carbon Dioxide 29 (22-30) mmol/L Anion Gap 8 L (10-20) BUN 15 (9-20) mg/dL Creatinine 2.4 H (0.8-1.5) mg/dL Est GFR ( Amer) 33 Est GFR (Non-Af Amer) 28 POC Glucose (mg/dL) 114 H 119 H (65-110) mg/dL Random Glucose 102 (75-110) mg/dL Calcium 8.0 L (8.6-10.4) mg/dl Phosphorus 1.5 L (2.5-4.5) mg/dL Magnesium 1.8 (1.6-2.3) mg/dL Total Bilirubin 0.9 (0.2-1.3) mg/dL AST 20 (17-59) U/L ALT 15 L (21-72) U/L Alkaline Phosphatase 216 H (38-126) U/L Total Protein 5.9 L (6.3-8.3) g/dL Albumin 1.9 L (3.5-5.0) g/dL Globulin 4.1 H (2.2-3.9) gm/dL Albumin/Globulin Ratio 0.5 L (1.0-2.1) C. difficile Ag & Toxin (NEGATIVE) 08/19/17 08/19/17 Range/Units 12:27 07:12 WBC 3.9 L (4.8-10.8) K/uL RBC 2.96 L (4.40-5.90) Mil/uL Hgb 8.6 L (12.0-18.0) g/dL Hct 25.8 L (35.0-51.0) % MCV 87.2 (80.0-94.0) fL MCH 29.1 (27.0-31.0) pg MCHC 33.3 (33.0-37.0) g/dL RDW 19.2 H (11.5-14.5) % Plt Count 102 L (130-400) K/uL MPV 9.6 (7.2-11.7) fL Neut % (Auto) 59.0 (50.0-75.0) % Lymph % (Auto) 16.3 L (20.0-40.0) % [place]oun % (Auto) 14.1 H (0.0-10.0) % Eos % (Auto) 9.2 H (0.0-4.0) % Baso % (Auto) 1.4 (0.0-2.0) % Neut # (Auto) 2.3 (1.8-7.0) K/uL Lymph # (Auto) 0.6 L (1.0-4.3) K/uL [place] # (Auto) 0.5 (0.0-0.8) K/uL Eos # (Auto) 0.4 (0.0-0.7) K/uL Baso # (Auto) 0.1 (0.0-0.2) K/uL Differential Comment Sodium (132-148) mmol/L Potassium (3.6-5.2) mmol/L Chloride (98-107) mmol/L Carbon Dioxide (22-30) mmol/L Anion Gap (10-20) BUN (9-20) mg/dL Creatinine (0.8-1.5) mg/dL Est GFR ( Amer) Est GFR (Non-Af Amer) POC Glucose (mg/dL) 96 (65-110) mg/dL Random Glucose (75-110) mg/dL Calcium (8.6-10.4) mg/dl Phosphorus (2.5-4.5) mg/dL Magnesium (1.6-2.3) mg/dL Total Bilirubin (0.2-1.3) mg/dL AST (17-59) U/L ALT (21-72) U/L Alkaline Phosphatase (38-126) U/L Total Protein (6.3-8.3) g/dL Albumin (3.5-5.0) g/dL Globulin (2.2-3.9) gm/dL Albumin/Globulin Ratio (1.0-2.1) C. difficile Ag & Toxin (NEGATIVE) Laboratory Results - last 24 hr 08/19/17 08/19/17 08/19/17 07:12 12:27 13:15 WBC 3.9 L RBC 2.96 L Hgb 8.6 L Hct 25.8 L MCV 87.2 MCH 29.1 MCHC 33.3 RDW 19.2 H Plt Count 102 L MPV 9.6 Neut % (Auto) 59.0 Lymph % (Auto) 16.3 L Calhoun % (Auto) 14.1 H Eos % (Auto) 9.2 H Baso % (Auto) 1.4 Neut # (Auto) 2.3 Lymph # (Auto) 0.6 L [place]oun # (Auto) 0.5 Eos # (Auto) 0.4 Baso # (Auto) 0.1 Differential Comment Sodium 131 L Potassium 2.9 L Chloride 97 L Carbon Dioxide 29 Anion Gap 8 L BUN 15 Creatinine 2.4 H Est GFR ( Amer) 33 Est GFR (Non-Af Amer) 28 POC Glucose (mg/dL) 96 Random Glucose 102 Calcium 8.0 L Phosphorus 1.5 L Magnesium 1.8 Total Bilirubin 0.9 AST 20 ALT 15 L Alkaline Phosphatase 216 H Total Protein 5.9 L Albumin 1.9 L Globulin 4.1 H Albumin/Globulin Ratio 0.5 L C. difficile Ag & Toxin 08/19/17 08/19/17 08/19/17 16:03 19:49 Unknown WBC RBC Hgb Hct MCV MCH MCHC RDW Plt Count MPV Neut % (Auto) Lymph % (Auto) Calhoun % (Auto) Eos % (Auto) Baso % (Auto) Neut # (Auto) Lymph # (Auto) [place]oun # (Auto) Eos # (Auto) Baso # (Auto) Differential Comment Sodium Potassium Chloride Carbon Dioxide Anion Gap BUN Creatinine Est GFR ( Amer) Est GFR (Non-Af Amer) POC Glucose (mg/dL) 119 H 114 H Random Glucose Calcium Phosphorus Magnesium Total Bilirubin AST ALT Alkaline Phosphatase Total Protein Albumin Globulin Albumin/Globulin Ratio C. difficile Ag & Toxin Negative 08/20/17 08/20/17 08/20/17 00:15 06:35 06:38 WBC 4.0 L RBC 2.99 L Hgb 8.2 L Hct 25.8 L MCV 86.3 MCH 27.5 MCHC 31.8 L RDW 18.8 H Plt Count 107 L MPV 10.0 Neut % (Auto) 49.6 L Lymph % (Auto) 21.1 Calhoun % (Auto) 17.1 H Eos % (Auto) 11.1 H Baso % (Auto) 1.1 Neut # (Auto) 2.0 Lymph # (Auto) 0.8 L [place] # (Auto) 0.7 Eos # (Auto) 0.4 Baso # (Auto) 0.0 Differential Comment Sodium Potassium Chloride Carbon Dioxide Anion Gap BUN Creatinine Est GFR ( Amer) Est GFR (Non-Af Amer) POC Glucose (mg/dL) 103 109 Random Glucose Calcium Phosphorus Magnesium Total Bilirubin AST ALT Alkaline Phosphatase Total Protein Albumin Globulin Albumin/Globulin Ratio C. difficile Ag & Toxin 08/20/17 08/20/17 08:12 08:19 WBC RBC Hgb Hct MCV MCH MCHC RDW Plt Count MPV Neut % (Auto) Lymph % (Auto) Calhoun % (Auto) Eos % (Auto) Baso % (Auto) Neut # (Auto) Lymph # (Auto) [place]oun # (Auto) Eos # (Auto) Baso # (Auto) Differential Comment Sodium 131 L Potassium 5.4 H Chloride 101 Carbon Dioxide 28 Anion Gap 8 L BUN 19 Creatinine 2.8 H Est GFR ( Amer) 28 Est GFR (Non-Af Amer) 23 POC Glucose (mg/dL) 95 Random Glucose 95 Calcium 8.1 L Phosphorus 2.1 L Magnesium 1.8 Total Bilirubin 0.8 AST 17 ALT 10 L D Alkaline Phosphatase 198 H Total Protein 6.2 L Albumin 1.9 L Globulin 4.2 H Albumin/Globulin Ratio 0.5 L C. difficile Ag & Toxin Fingerstick Blood Sugar Results: 85 Review of Systems - Review of Systems Systems not reviewed;Unavailable: Intubated - EENT Nose/Mouth/Throat: Mouth Lesions, Tongue Swelling Critical Care Progress Note - Nutrition Nutrition: Nutrition Category Date Time Status NPO Diet [DIET] Diets 08/13/17 Breakfast Active Assessment/Plan - Assessment and Plan (Free Text) Plan: Psych: no active problems Cardio: CAD, HTN ASA 81mg QD - hold until after GI procedure Coreg 6.25 PO BID Plavix 75mg PO QD - hold until after GI procedure Rosuvastatin 2.5mg PO QHS Pulm: Respiratory failure s/p intubation, PNA, COPD, hypoxemia Psuedomonas + trach culture n 08/10/17 Continue meropenem Continue vancomycin Continue Amikacin duoneb s/p Tracheostomy FiO2 50%, PEEP 5 Repeat Trach culture positive for Acinetobacter on Sputum cultures. GI: Chronic Dysphagia ([place]) G placement expected to be done this week. Will f/u with GI for estimated date. Sucrafalfate Nephro tube feeds at 20cc/hr Renal: ESRD ([place]) HD: T, Th, Sat Endo: IDDM, hypothyroidism ISS Electrolytes: Hyperkalemia HD today. Repeat Cmp after HD. ID: Septic Shock gram neg rods in trach culture norephinephrine vanc/mena/fluconazole Heme/Onc: blood culture neg PPx: Pepcid 20 IVP QD Heparin 5,000 units SC QD full code Next of kin: Lisa (daughter) 08/20/17 12:12
[2017-08-20] MEDS ORDERED: Albumin Human 25% (12.5 gm/50 ml) IV ONE ×3 (11:30→12:15)
--- NOTE | 2017-08-20 13:02 | CP.PCM.PN ---
Subjective - Date & Time of Evaluation Date of Evaluation: 08/20/17 Time of Evaluation: 13:02 - Subjective Subjective: HPI: 62 year old man with following chronic medical conditions 1. 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 CAD s/p PCI > 12 months ago 3. ESRD on HD Sedated on trach/vent NSR, currently gettng HD: via L. arm AVF Objective - Vital Signs/Intake and Output Vital Signs (last 24 hours): Temp Pulse Resp BP Pulse Ox 98.8 F 63 22 120/52 L 100 08/20/17 10:15 08/20/17 12:40 08/20/17 12:40 08/20/17 12:40 08/20/17 12:40 Intake and Output: 08/20/17 08/20/17 06:59 18:59 Intake Total 760 330 Output Total 0 Balance 760 330 - Medications Medications: Current Medications Acetaminophen (Tylenol 120mg Supp) 120 mg DC Q6 PRN PRN Reason: Fever >100.4 F Last Admin: 08/19/17 22:53 Dose: 120 mg Aspirin (Aspirin Chewable) 81 mg PO DAILY [facility] Last Admin: 08/20/17 09:28 Dose: 81 mg Carvedilol (Coreg) 6.25 mg PO BID [facility] Last Admin: 08/20/17 09:10 Dose: 6.25 mg Clopidogrel Bisulfate (Plavix) 75 mg PO DAILY [facility] Last Admin: 08/20/17 09:10 Dose: 75 mg Docusate Sodium (Colace) 100 mg PO BID PRN PRN Reason: Constipation Famotidine (Pepcid) 20 mg IVP DAILY [facility] Last Admin: 08/20/17 09:10 Dose: 20 mg Meropenem 500 mg/ Sodium (Chloride) 100 mls @ 100 mls/hr IVPB Q12H [facility] Last Admin: 08/20/17 01:00 Dose: 100 mls/hr Fluconazole (Diflucan Iv 400mg/200ml Ns) 200 mls @ 100 mls/hr IVPB Q24H [facility] Last Admin: 08/19/17 13:07 Dose: 100 mls/hr Dextrose (Dextrose 10% In Water) 500 mls @ 30 mls/hr IV .[id number] [facility] Last Admin: 08/20/17 09:13 Dose: 30 mls/hr Amikacin Sulfate 750 mg/ (Sodium Chloride) 253 mls @ 250 mls/hr IVPB TTS [facility] Last Admin: 08/18/17 14:54 Dose: 250 mls/hr Vancomycin/Sodium Chloride (Vancomycin 1 Gm/Ns 200 Ml) 1 gm in 200 mls @ 133.333 mls/hr IVPB TTS [facility] Stop: 08/23/17 10:01 Last Admin: 08/18/17 09:49 Dose: 133.333 mls/hr Insulin Aspart (Novolog) 0 unit SC Q4H [facility] PRN Reason: Protocol Last Admin: 08/20/17 09:06 Dose: Not Given Rosuvastatin Calcium (Crestor) 2.5 mg PO HS [facility] Last Admin: 08/19/17 21:55 Dose: 2.5 mg Sucralfate (Carafate Oral Susp) 1 gm NG Q6H [facility] Last Admin: 08/20/17 08:35 Dose: 1 gm Vitamin A (Vitamin A & D Oint Ud Foilpak) 4 ea TOP BID [facility] Last Admin: 08/20/17 09:11 Dose: 4 ea - Labs Labs: 08/20/17 06:38 08/20/17 08:19 PT 13.1 SECONDS (9.7-12.2) H 08/10/17 21:21 INR 1.2 08/10/17 21:21 APTT 46 SECONDS (21-34) H 08/10/17 21:21 - Constitutional Appears: Chronically Ill - Respiratory Exam Respiratory Exam: Rhonchi - Cardiovascular Exam Cardiovascular Exam: REGULAR RHYTHM, +S1, +S2. absent: Murmur - Extremities Exam Extremities Exam: Pedal Edema - Neurological Exam Neurological Exam: Altered - Skin Skin Exam: Warm Assessment and Plan - Assessment and Plan (Free Text) Assessment: 62 year old man with severe chronic illness and respirtory failure now s/p trachestomy acute diastolic CHF > needs more fluid removal with HD/ESRD Aspiration chronic trach/health care associated PNA - ABX broad spectrum PRE-OP for PEG: ASHD no evidence of regional wall motion abnormalities, No reporting hx of PCI in past 12 months. He is acceptable risk to hold dual anti platelet therapy. Echo 08/10/17: direct;ly seen by me: Normal LVEF, mod TR, mild-mod PULM HTN, normal wall motion. PEG placement pending Anemia Mild hyperkalemia
--- NOTE | 2017-08-20 14:03 | CP.PCM.PN ---
Subjective - Date & Time of Evaluation Date of Evaluation: 08/20/17 Time of Evaluation: 14:03 Objective - Vital Signs/Intake and Output Vital Signs (last 24 hours): Temp Pulse Resp BP Pulse Ox 98.8 F 62 22 115/48 L 100 08/20/17 10:15 08/20/17 13:15 08/20/17 13:15 08/20/17 13:15 08/20/17 13:15 Intake and Output: 08/20/17 08/20/17 06:59 18:59 Intake Total 760 330 Output Total 0 Balance 760 330 - Medications Medications: Current Medications Acetaminophen (Tylenol 120mg Supp) 120 mg RI Q6 PRN PRN Reason: Fever >100.4 F Last Admin: 08/19/17 22:53 Dose: 120 mg Aspirin (Aspirin Chewable) 81 mg PO DAILY [facility] Last Admin: 08/20/17 09:28 Dose: 81 mg Carvedilol (Coreg) 6.25 mg PO BID [facility] Last Admin: 08/20/17 09:10 Dose: 6.25 mg Clopidogrel Bisulfate (Plavix) 75 mg PO DAILY [facility] Last Admin: 08/20/17 09:10 Dose: 75 mg Docusate Sodium (Colace) 100 mg PO BID PRN PRN Reason: Constipation Famotidine (Pepcid) 20 mg IVP DAILY [facility] Last Admin: 08/20/17 09:10 Dose: 20 mg Meropenem 500 mg/ Sodium (Chloride) 100 mls @ 100 mls/hr IVPB Q12H [facility] Last Admin: 08/20/17 01:00 Dose: 100 mls/hr Fluconazole (Diflucan Iv 400mg/200ml Ns) 200 mls @ 100 mls/hr IVPB Q24H [facility] Last Admin: 08/19/17 13:07 Dose: 100 mls/hr Dextrose (Dextrose 10% In Water) 500 mls @ 30 mls/hr IV .[id number] [facility] Last Admin: 08/20/17 09:13 Dose: 30 mls/hr Amikacin Sulfate 750 mg/ (Sodium Chloride) 253 mls @ 250 mls/hr IVPB TTS [facility] Last Admin: 08/18/17 14:54 Dose: 250 mls/hr Vancomycin/Sodium Chloride (Vancomycin 1 Gm/Ns 200 Ml) 1 gm in 200 mls @ 133.333 mls/hr IVPB TTS [facility] Stop: 08/23/17 10:01 Last Admin: 08/18/17 09:49 Dose: 133.333 mls/hr Insulin Aspart (Novolog) 0 unit SC Q4H [facility] PRN Reason: Protocol Last Admin: 08/20/17 13:40 Dose: Not Given Rosuvastatin Calcium (Crestor) 2.5 mg PO HS [facility] Last Admin: 08/19/17 21:55 Dose: 2.5 mg Sucralfate (Carafate Oral Susp) 1 gm NG Q6H [facility] Last Admin: 08/20/17 08:35 Dose: 1 gm Vitamin A (Vitamin A & D Oint Ud Foilpak) 4 ea TOP BID [facility] Last Admin: 08/20/17 09:11 Dose: 4 ea - Labs Labs: 08/20/17 06:38 08/20/17 08:19 PT 13.1 SECONDS (9.7-12.2) H 08/10/17 21:21 INR 1.2 08/10/17 21:21 APTT 46 SECONDS (21-34) H 08/10/17 21:21
[2017-08-20 14:04] LABS: PLT(ADP) 22 K/uL
[2017-08-20 14:05] LABS: FUNCTIONING PLTS 70 K/uL; PLT BASE COUNT 92 K/uL
[2017-08-20 14:46] LABS: EOS # 0.4 K/uL (0.0-0.7); EOS % 12.5 % (0.0-4.0); HEMOGLOBIN 7.1 g/dL (12.0-18.0); LYMPH # 0.6 K/uL (1.0-4.3); LYMPH % 18.9 % (20.0-40.0); MEAN CELL VOLUME 84.4 fL (80.0-94.0); MEAN CORPUSCULAR HEMOGLOBIN 27.3 pg (27.0-31.0); MEAN CORPUSCULAR HGB CONC 32.3 g/dL (33.0-37.0); MEAN PLATELET VOLUME 9.5 fL (7.2-11.7); MONO # 0.6 K/uL (0.0-0.8); MONO % 18.9 % (0.0-10.0); NEUT # 1.6 K/uL (1.8-7.0); NEUT % 48.7 % (50.0-75.0); RBC 2.61 Mil/uL (4.40-5.90); WHITE BLOOD COUNT 3.4 K/uL (4.8-10.8)
[2017-08-20 14:54] LABS: INR 1.3; PROTHROMBIN TIME 14.6 SECONDS (9.7-12.2)
[2017-08-20] MEDS: Fluconazole IV 400mg/200ml NS 200 ML IVPB SCH (15:04)
[2017-08-20 19:16] LABS: BASO # 0.1 K/uL (0.0-0.2); BASO % 2.9 % (0.0-2.0); EOS # 0.5 K/uL (0.0-0.7); EOS % 13.7 % (0.0-4.0); HEMOGLOBIN 7.2 g/dL (12.0-18.0); LYMPH # 0.8 K/uL (1.0-4.3); LYMPH % 22.9 % (20.0-40.0); MEAN CELL VOLUME 85.7 fL (80.0-94.0); MEAN CORPUSCULAR HEMOGLOBIN 28.1 pg (27.0-31.0); MEAN CORPUSCULAR HGB CONC 32.8 g/dL (33.0-37.0); MEAN PLATELET VOLUME 9.3 fL (7.2-11.7); MONO # 0.5 K/uL (0.0-0.8); MONO % 13.2 % (0.0-10.0); NEUT # 1.7 K/uL (1.8-7.0); NEUT % 47.3 % (50.0-75.0); NRBC % 0.1 % (0.0-2.0); RBC 2.58 Mil/uL (4.40-5.90); RED CELL DISTRIBUTION WIDTH 19.4 % (11.5-14.5); WHITE BLOOD COUNT 3.6 K/uL (4.8-10.8)
--- NOTE | 2017-08-20 19:38 | CP.PCM.PN ---
Subjective - Date & Time of Evaluation Date of Evaluation: 08/20/17 Time of Evaluation: 12:40 - Subjective Subjective: clinically same Objective - Vital Signs/Intake and Output Vital Signs (last 24 hours): Temp Pulse Resp BP Pulse Ox 98.6 F 65 22 112/45 L 100 08/20/17 16:00 08/20/17 19:00 08/20/17 19:00 08/20/17 19:00 08/20/17 19:00 Intake and Output: 08/20/17 08/21/17 18:59 06:59 Intake Total 1570 60 Balance 1570 60 - Medications Medications: Current Medications Acetaminophen (Tylenol 120mg Supp) 120 mg DC Q6 PRN PRN Reason: Fever >100.4 F Last Admin: 08/19/17 22:53 Dose: 120 mg Aspirin (Aspirin Chewable) 81 mg PO DAILY [facility] Last Admin: 08/20/17 09:28 Dose: 81 mg Carvedilol (Coreg) 6.25 mg PO BID [facility] Last Admin: 08/20/17 18:57 Dose: 6.25 mg Clopidogrel Bisulfate (Plavix) 75 mg PO DAILY [facility] Last Admin: 08/20/17 09:10 Dose: 75 mg Docusate Sodium (Colace) 100 mg PO BID PRN PRN Reason: Constipation Famotidine (Pepcid) 20 mg IVP DAILY [facility] Last Admin: 08/20/17 09:10 Dose: 20 mg Meropenem 500 mg/ Sodium (Chloride) 100 mls @ 100 mls/hr IVPB Q12H [facility] Last Admin: 08/20/17 14:57 Dose: 100 mls/hr Fluconazole (Diflucan Iv 400mg/200ml Ns) 200 mls @ 100 mls/hr IVPB Q24H [facility] Last Admin: 08/20/17 15:04 Dose: 100 mls/hr Dextrose (Dextrose 10% In Water) 500 mls @ 30 mls/hr IV .[id number] [facility] Last Admin: 08/20/17 09:13 Dose: 30 mls/hr Amikacin Sulfate 750 mg/ (Sodium Chloride) 253 mls @ 250 mls/hr IVPB TTS [facility] Last Admin: 08/18/17 14:54 Dose: 250 mls/hr Vancomycin/Sodium Chloride (Vancomycin 1 Gm/Ns 200 Ml) 1 gm in 200 mls @ 133.333 mls/hr IVPB TTS [facility] Stop: 08/23/17 10:01 Last Admin: 08/18/17 09:49 Dose: 133.333 mls/hr Insulin Aspart (Novolog) 0 unit SC Q4H [facility] PRN Reason: Protocol Last Admin: 08/20/17 17:47 Dose: Not Given Rosuvastatin Calcium (Crestor) 2.5 mg PO HS [facility] Last Admin: 08/19/17 21:55 Dose: 2.5 mg Sucralfate (Carafate Oral Susp) 1 gm NG Q6H [facility] Last Admin: 08/20/17 14:57 Dose: 1 gm Vitamin A (Vitamin A & D Oint Ud Foilpak) 4 ea TOP BID [facility] Last Admin: 08/20/17 18:57 Dose: 4 ea - Labs Labs: 08/20/17 19:13 08/20/17 08:19 PT 14.6 SECONDS (9.7-12.2) H 08/20/17 14:40 INR 1.3 08/20/17 14:40 APTT 53 SECONDS (21-34) H 08/20/17 14:40
[2017-08-20] MEDS: Rosuvastatin Calcium 2.5 mg Tab PO SCH (23:47)
[2017-08-21] MEDS: Meropenem 500 MG in Sodium Chloride 0.9% 100 ML IVPB SCH ×2 (01:00→15:06)
[2017-08-21] MEDS: Sucralfate 1 gm/10 ml Oral Susp UD NG SCH ×4 (01:41→21:55)
[2017-08-21] MEDS: (Novolog) Insulin Aspart, Recombinant 100 u/ml 10 ml vial SC SCH ×6 (06:30→20:00)
[2017-08-21 06:42] LABS: EOS # 0.4 K/uL (0.0-0.7); EOS % 12.3 % (0.0-4.0); HEMOGLOBIN 7.2 g/dL (12.0-18.0); LYMPH # 0.8 K/uL (1.0-4.3); LYMPH % 21.4 % (20.0-40.0); MEAN CELL VOLUME 88.1 fL (80.0-94.0); MEAN CORPUSCULAR HEMOGLOBIN 29.3 pg (27.0-31.0); MEAN CORPUSCULAR HGB CONC 33.3 g/dL (33.0-37.0); MONO # 0.6 K/uL (0.0-0.8); MONO % 15.8 % (0.0-10.0); NEUT # 1.8 K/uL (1.8-7.0); NEUT % 49.5 % (50.0-75.0); NRBC % 0.2 % (0.0-2.0); RBC 2.45 Mil/uL (4.40-5.90); RED CELL DISTRIBUTION WIDTH 19.6 % (11.5-14.5); WHITE BLOOD COUNT 3.6 K/uL (4.8-10.8)
[2017-08-21 06:52] LABS: MAGNESIUM 1.7 mg/dL (1.6-2.3)
[2017-08-21 06:57] LABS: ALB/GLOB RATIO 0.5 (1.0-2.1); ALBUMIN 1.9 g/dL (3.5-5.0); CALCIUM 7.7 mg/dl (8.6-10.4)
[2017-08-21 08:23] VITALS: O2SAT 100
[2017-08-21] MEDS ORDERED: Albumin Human 25% (12.5 gm/50 ml) IV ONE ×2 (09:48→09:49)
--- NOTE | 2017-08-21 10:19 | CP.PCM.PN ---
Subjective - Date & Time of Evaluation Date of Evaluation: 08/21/17 Time of Evaluation: 06:00 - Subjective Subjective: afeb on iv entibiotics MDRO sputum Objective - Vital Signs/Intake and Output Vital Signs (last 24 hours): Temp Pulse Resp BP Pulse Ox 98.6 F 67 22 130/57 L 100 08/21/17 08:00 08/21/17 10:00 08/21/17 10:00 08/21/17 07:00 08/21/17 10:00 Intake and Output: 08/21/17 08/21/17 06:59 18:59 Intake Total 720 240 Output Total 250 0 Balance 470 240 - Medications Medications: Current Medications Acetaminophen (Tylenol 120mg Supp) [address] Q6 PRN PRN Reason: Fever >100.4 F Last Admin: 08/19/17 22:53 Dose: 120 mg Aspirin (Aspirin Chewable) 81 mg PO DAILY [facility] Last Admin: 08/20/17 09:28 Dose: 81 mg Carvedilol (Coreg) 6.25 mg PO BID [facility] Last Admin: 08/21/17 09:02 Dose: Not Given Clopidogrel Bisulfate (Plavix) 75 mg PO DAILY [facility] Last Admin: 08/20/17 09:10 Dose: 75 mg Docusate Sodium (Colace) 100 mg PO BID PRN PRN Reason: Constipation Famotidine (Pepcid) 20 mg IVP DAILY [facility] Last Admin: 08/20/17 09:10 Dose: 20 mg Meropenem 500 mg/ Sodium (Chloride) 100 mls @ 100 mls/hr IVPB Q12H [facility] Last Admin: 08/21/17 01:00 Dose: 100 mls/hr Fluconazole (Diflucan Iv 400mg/200ml Ns) 200 mls @ 100 mls/hr IVPB Q24H [facility] Last Admin: 08/20/17 15:04 Dose: 100 mls/hr Dextrose (Dextrose 10% In Water) 500 mls @ 30 mls/hr IV .[id number] [facility] Last Admin: 08/20/17 22:51 Dose: Not Given Amikacin Sulfate 750 mg/ (Sodium Chloride) 253 mls @ 250 mls/hr IVPB TTS [facility] Last Admin: 08/18/17 14:54 Dose: 250 mls/hr Vancomycin/Sodium Chloride (Vancomycin 1 Gm/Ns 200 Ml) 1 gm in 200 mls @ 133.333 mls/hr IVPB TTS [facility] Stop: 08/23/17 10:01 Last Admin: 08/18/17 09:49 Dose: 133.333 mls/hr Insulin Aspart (Novolog) 0 unit SC Q4H [facility] PRN Reason: Protocol Last Admin: 08/21/17 09:02 Dose: Not Given Rosuvastatin Calcium (Crestor) 2.5 mg PO HS [facility] Last Admin: 08/20/17 23:47 Dose: 2.5 mg Sucralfate (Carafate Oral Susp) 1 gm NG Q6H [facility] Last Admin: 08/21/17 07:46 Dose: 1 gm Vitamin A (Vitamin A & D Oint Ud Foilpak) 4 ea TOP BID [facility] Last Admin: 08/20/17 18:57 Dose: 4 ea - Labs Labs: 08/21/17 06:30 08/21/17 06:28 PT 14.6 SECONDS (9.7-12.2) H 08/20/17 14:40 INR 1.3 08/20/17 14:40 APTT 53 SECONDS (21-34) H 08/20/17 14:40 - Constitutional Appears: Confused, Cachectic, Chronically Ill - Head Exam Head Exam: NORMOCEPHALIC - Eye Exam Eye Exam: PERRL - ENT Exam ENT Exam: Mucous Membranes Dry - Respiratory Exam Respiratory Exam: Decreased Breath Sounds - Cardiovascular Exam Cardiovascular Exam: REGULAR RHYTHM - GI/Abdominal Exam GI & Abdominal Exam: Distended, Soft - Rectal Exam Rectal Exam: Deferred - Exam Exam: NORMAL INSPECTION - Extremities Exam Extremities Exam: absent: Pedal Edema - Back Exam Back Exam: absent: CVA tenderness (L), CVA tenderness (R) Assessment and Plan (1) Altered mental status Status: Acute (2) COPD (chronic obstructive pulmonary disease) Status: Acute (3) Chronic congestive heart failure Status: Acute (4) Congestive heart failure (CHF) Status: Acute (5) Fever Status: Acute (6) Pneumonia Status: Acute (7) ESRD (end stage renal disease) on dialysis Status: Chronic (8) Hypertension Status: Chronic
--- NOTE | 2017-08-21 11:41 | CP.CCUPN ---
<Tomy Estevez - Last Filed: 08/21/17 17:17> CCU Subjective - Physician Review Events Since Last Encounter (Free Text): 08/21/17 11:42 Patient seen and examined at bedside. Per nursing no acute events occurred overnight. Subjective (Free Text): 08/20/17 10:54 Patient seen and examined at bedside this A.M. per nursing no acute events occurred overnight. Patient s/p Trach and awaiting Peg tube placement. 08/20/17 10:58 Pt is a 62M who was a direct ICU admit from [facility] for Trach and PEG placement on 08/10/17. Trach was done on 08/14/[address] Deshpande. Expected to have Peg Tube once cleared. Pt was febrile overnight up to 100.6F. Today pt remains minimally responsive. PMHx: ESRD, CAD s/p 2 stents. hypothyroid, CHF, HTN, COPD, IDDM, chronic dysphagia SHx: coronary stent x 2 Allergies: tetanus and diphtheria toxoids Family: none Social: none 08/20/17 17:02 Critical Care Time Spent (in minutes): 40 CCU Objective - Vital Signs / Intake & Output Vital Signs (Last 4 hours): Vital Signs Temp Pulse Pulse Resp BP BP Pulse Ox 08/21/17 11:00 62 21 96/43 L 100 08/21/17 10:30 86/51 L 08/21/17 10:00 67 20 112/50 L 100/47 L 100 08/21/17 09:45 107/50 L 08/21/17 09:30 118/52 L 08/21/17 09:15 102/49 L 08/21/17 09:00 97.8 F 62 62 21 135/60 77/39 L 100 08/21/17 08:00 98.6 F 65 22 130/56 L 100 Intake and Output (Last 8hrs): Intake & Output 08/20/17 08/21/17 08/21/17 22:59 06:59 14:59 Intake Total 750 480 300 Output Total 250 0 Balance 750 230 300 Weight 171 lb 15.369 oz Intake: Intake, IV Amount 440 240 150 Right Distal Port 200 Right PICC 240 240 150 Tube Feeding 230 240 150 Other 80 Output: Urine 250 0 Urine, Voided 250 0 - Physical Exam Head: Positive for: Atraumatic, Normocephalic Pupils: Positive for: PERRL Extroacular Muscles: Positive for: EOMI Conjunctiva: Positive for: Normal Mouth: Positive for: Moist Mucous Membranes Respiratory/Chest: Positive for: Clear to Auscultation, Good Air Exchange. Negative for: Accessory Muscle Use Cardiovascular: Positive for: Normal S1, S2, Rub Abdomen: Positive for: Normal Bowel Sounds. Negative for: Peritoneal Signs Upper Extremity: Positive for: Normal Inspection. Negative for: Cyanosis, Edema Lower Extremity: Positive for: Normal Inspection. Negative for: Edema - Medications Active Medications: Active Medications Generic Name Dose Route Start Last Admin Trade Name Freq PRN Reason Stop Dose Admin Acetaminophen 120 mg 08/14/17 04:10 08/19/17 22:53 Tylenol 120mg Supp TX 120 mg Q6 PRN Administration Fever >100.4 F Aspirin 81 mg 08/11/17 10:00 08/20/17 09:28 Aspirin Chewable PO 81 mg DAILY BAYLEE Administration Carvedilol 6.25 mg 08/11/17 10:00 08/21/17 09:02 Coreg PO Not Given BID BAYLEE Clopidogrel Bisulfate 75 mg 08/11/17 10:00 08/20/17 09:10 Plavix PO 75 mg DAILY BAYLEE Administration Docusate Sodium 100 mg 08/10/17 20:10 Colace PO BID PRN Constipation Famotidine 20 mg 08/11/17 10:00 08/20/17 09:10 Pepcid IVP 20 mg DAILY BAYLEE Administration Meropenem 500 mg/ Sodium 100 mls @ 100 mls/hr 08/15/17 13:15 08/21/17 01:00 Chloride IVPB 100 mls/hr Q12H BAYLEE Administration Fluconazole 200 mls @ 100 mls/hr 08/15/17 14:00 08/20/17 15:04 Diflucan Iv 400mg/200ml Ns IVPB 100 mls/hr Q24H BAYLEE Administration Dextrose 500 mls @ 30 mls/hr 08/17/17 10:30 08/20/17 22:51 Dextrose 10% In Water IV Not Given .[id number] BAYLEE Amikacin Sulfate 750 mg/ 253 mls @ 250 mls/hr 08/18/17 10:00 08/18/17 14:54 Sodium Chloride IVPB 250 mls/hr TTS BAYLEE Administration Vancomycin/Sodium Chloride 1 gm in 200 mls @ 133.333 mls/hr 08/18/17 10:00 09:49 Vancomycin 1 Gm/Ns 200 Ml IVPB 08/23/17 10:01 133.333 mls/hr TTS BAYLEE Administration Insulin Aspart 0 unit 08/21/17 12:00 Novolog SC Q4H BAYLEE Protocol Rosuvastatin Calcium 2.5 mg 08/11/17 22:00 08/20/17 23:47 Crestor PO 2.5 mg HS BAYLEE Administration Sucralfate 1 gm 08/10/17 20:15 08/21/17 07:46 Carafate Oral Susp NG 1 gm Q6H BAYLEE Administration Vitamin A 4 ea 08/13/17 18:00 08/20/17 18:57 Vitamin A & D Oint Ud Foilpak TOP 4 ea BID BAYLEE Administration - Patient Studies Lab Studies: Microbiology Studies 08/16/17 04:00 Blood Culture - Final Blood NO GROWTH AFTER 5 DAYS Gram Stain - Final TEST NOT PERFORMED 08/16/17 04:00 Blood Culture - Final Blood NO GROWTH AFTER 5 DAYS Gram Stain - Final TEST NOT PERFORMED 08/15/17 12:30 Blood Culture - Final Blood NO GROWTH AFTER 5 DAYS Gram Stain - Final TEST NOT PERFORMED 08/15/17 12:00 Blood Culture - Final Blood NO GROWTH AFTER 5 DAYS Gram Stain - Final TEST NOT PERFORMED Lab Studies 08/21/17 08/21/17 08/21/17 Range/Units 11:27 08:59 06:30 WBC 3.6 L (4.8-10.8) K/uL RBC 2.45 L (4.40-5.90) Mil/uL Hgb 7.2 L (12.0-18.0) g/dL Hct 21.6 L (35.0-51.0) % MCV 88.1 D (80.0-94.0) fL MCH 29.3 (27.0-31.0) pg MCHC 33.3 (33.0-37.0) g/dL RDW 19.6 H (11.5-14.5) % Plt Count 95 L (130-400) K/uL MPV 10.0 (7.2-11.7) fL Neut % (Auto) 49.5 L (50.0-75.0) % Lymph % (Auto) 21.4 (20.0-40.0) % Frederick % (Auto) 15.8 H (0.0-10.0) % Eos % (Auto) 12.3 H (0.0-4.0) % Baso % (Auto) 1.0 (0.0-2.0) % Neut # (Auto) 1.8 (1.8-7.0) K/uL Lymph # (Auto) 0.8 L (1.0-4.3) K/uL Frederick # (Auto) 0.6 (0.0-0.8) K/uL Eos # (Auto) 0.4 (0.0-0.7) K/uL Baso # (Auto) 0.0 (0.0-0.2) K/uL PT (9.7-12.2) SECONDS INR APTT (21-34) SECONDS Plt Function Assay K/uL Hep-Constanza Thrombocytopen (Negative) Sodium (132-148) mmol/L Potassium (3.6-5.2) mmol/L Chloride (98-107) mmol/L Carbon Dioxide (22-30) mmol/L Anion Gap (10-20) BUN (9-20) mg/dL Creatinine (0.8-1.5) mg/dL Est GFR ( Amer) Est GFR (Non-Af Amer) POC Glucose (mg/dL) 104 112 H (65-110) mg/dL Random Glucose (75-110) mg/dL Calcium (8.6-10.4) mg/dl Phosphorus (2.5-4.5) mg/dL Magnesium (1.6-2.3) mg/dL Total Bilirubin (0.2-1.3) mg/dL AST (17-59) U/L ALT (21-72) U/L Alkaline Phosphatase (38-126) U/L Total Protein (6.3-8.3) g/dL Albumin (3.5-5.0) g/dL Globulin (2.2-3.9) gm/dL Albumin/Globulin Ratio (1.0-2.1) Heparin-induced Plt Ab (Negative) 08/21/17 08/21/17 08/21/17 Range/Units 06:28 06:28 06:07 WBC (4.8-10.8) K/uL RBC (4.40-5.90) Mil/uL Hgb (12.0-18.0) g/dL Hct (35.0-51.0) % MCV (80.0-94.0) fL MCH (27.0-31.0) pg MCHC (33.0-37.0) g/dL RDW (11.5-14.5) % Plt Count (130-400) K/uL MPV (7.2-11.7) fL Neut % (Auto) (50.0-75.0) % Lymph % (Auto) (20.0-40.0) % Frederick % (Auto) (0.0-10.0) % Eos % (Auto) (0.0-4.0) % Baso % (Auto) (0.0-2.0) % Neut # (Auto) (1.8-7.0) K/uL Lymph # (Auto) (1.0-4.3) K/uL Frederick # (Auto) (0.0-0.8) K/uL Eos # (Auto) (0.0-0.7) K/uL Baso # (Auto) (0.0-0.2) K/uL PT (9.7-12.2) SECONDS INR APTT (21-34) SECONDS Plt Function Assay K/uL Hep-Constanza Thrombocytopen (Negative) Sodium 129 L (132-148) mmol/L Potassium 4.2 (3.6-5.2) mmol/L Chloride 96 L (98-107) mmol/L Carbon Dioxide 30 (22-30) mmol/L Anion Gap 8 L (10-20) BUN 14 (9-20) mg/dL Creatinine 2.2 H (0.8-1.5) mg/dL Est GFR ( Amer) 37 Est GFR (Non-Af Amer) 31 POC Glucose (mg/dL) 95 (65-110) mg/dL Random Glucose 96 (75-110) mg/dL Calcium 7.7 L (8.6-10.4) mg/dl Phosphorus 2.1 L (2.5-4.5) mg/dL Magnesium 1.7 (1.6-2.3) mg/dL Total Bilirubin 0.8 (0.2-1.3) mg/dL AST 18 (17-59) U/L ALT 14 L D (21-72) U/L Alkaline Phosphatase 177 H (38-126) U/L Total Protein 6.0 L (6.3-8.3) g/dL Albumin 1.9 L (3.5-5.0) g/dL Globulin 4.1 H (2.2-3.9) gm/dL Albumin/Globulin Ratio 0.5 L (1.0-2.1) Heparin-induced Plt Ab (Negative) 08/20/17 08/20/17 08/20/17 Range/Units 23:40 20:16 19:13 WBC 3.6 L (4.8-10.8) K/uL RBC 2.58 L (4.40-5.90) Mil/uL Hgb 7.2 L (12.0-18.0) g/dL Hct 22.1 L (35.0-51.0) % MCV 85.7 (80.0-94.0) fL MCH 28.1 (27.0-31.0) pg MCHC 32.8 L (33.0-37.0) g/dL RDW 19.4 H (11.5-14.5) % Plt Count 104 L (130-400) K/uL MPV 9.3 (7.2-11.7) fL Neut % (Auto) 47.3 L (50.0-75.0) % Lymph % (Auto) 22.9 (20.0-40.0) % Frederick % (Auto) 13.2 H (0.0-10.0) % Eos % (Auto) 13.7 H (0.0-4.0) % Baso % (Auto) 2.9 H (0.0-2.0) % Neut # (Auto) 1.7 L (1.8-7.0) K/uL Lymph # (Auto) 0.8 L (1.0-4.3) K/uL Frederick # (Auto) 0.5 (0.0-0.8) K/uL Eos # (Auto) 0.5 (0.0-0.7) K/uL Baso # (Auto) 0.1 (0.0-0.2) K/uL PT (9.7-12.2) SECONDS INR APTT (21-34) SECONDS Plt Function Assay K/uL Hep-Constanza Thrombocytopen (Negative) Sodium (132-148) mmol/L Potassium (3.6-5.2) mmol/L Chloride (98-107) mmol/L Carbon Dioxide (22-30) mmol/L Anion Gap (10-20) BUN (9-20) mg/dL Creatinine (0.8-1.5) mg/dL Est GFR ( Amer) Est GFR (Non-Af Amer) POC Glucose (mg/dL) 96 90 (65-110) mg/dL Random Glucose (75-110) mg/dL Calcium (8.6-10.4) mg/dl Phosphorus (2.5-4.5) mg/dL Magnesium (1.6-2.3) mg/dL Total Bilirubin (0.2-1.3) mg/dL AST (17-59) U/L ALT (21-72) U/L Alkaline Phosphatase (38-126) U/L Total Protein (6.3-8.3) g/dL Albumin (3.5-5.0) g/dL Globulin (2.2-3.9) gm/dL Albumin/Globulin Ratio (1.0-2.1) Heparin-induced Plt Ab (Negative) 08/20/17 08/20/17 08/20/17 Range/Units 16:12 14:40 14:40 WBC 3.4 L (4.8-10.8) K/uL RBC 2.61 L (4.40-5.90) Mil/uL Hgb 7.1 L (12.0-18.0) g/dL Hct 22.0 L (35.0-51.0) % MCV 84.4 (80.0-94.0) fL MCH 27.3 (27.0-31.0) pg MCHC 32.3 L (33.0-37.0) g/dL RDW 19.0 H (11.5-14.5) % Plt Count 95 L (130-400) K/uL MPV 9.5 (7.2-11.7) fL Neut % (Auto) 48.7 L (50.0-75.0) % Lymph % (Auto) 18.9 L (20.0-40.0) % Frederick % (Auto) 18.9 H (0.0-10.0) % Eos % (Auto) 12.5 H (0.0-4.0) % Baso % (Auto) 1.0 (0.0-2.0) % Neut # (Auto) 1.6 L (1.8-7.0) K/uL Lymph # (Auto) 0.6 L (1.0-4.3) K/uL Frederick # (Auto) 0.6 (0.0-0.8) K/uL Eos # (Auto) 0.4 (0.0-0.7) K/uL Baso # (Auto) 0.0 (0.0-0.2) K/uL PT 14.6 H (9.7-12.2) SECONDS INR 1.3 APTT 53 H (21-34) SECONDS Plt Function Assay K/uL Hep-Constanza Thrombocytopen (Negative) Sodium (132-148) mmol/L Potassium (3.6-5.2) mmol/L Chloride (98-107) mmol/L Carbon Dioxide (22-30) mmol/L Anion Gap (10-20) BUN (9-20) mg/dL Creatinine (0.8-1.5) mg/dL Est GFR ( Amer) Est GFR (Non-Af Amer) POC Glucose (mg/dL) 100 (65-110) mg/dL Random Glucose (75-110) mg/dL Calcium (8.6-10.4) mg/dl Phosphorus (2.5-4.5) mg/dL Magnesium (1.6-2.3) mg/dL Total Bilirubin (0.2-1.3) mg/dL AST (17-59) U/L ALT (21-72) U/L Alkaline Phosphatase (38-126) U/L Total Protein (6.3-8.3) g/dL Albumin (3.5-5.0) g/dL Globulin (2.2-3.9) gm/dL Albumin/Globulin Ratio (1.0-2.1) Heparin-induced Plt Ab (Negative) 08/20/17 08/20/17 08/17/17 Range/Units 13:58 12:15 10:48 WBC (4.8-10.8) K/uL RBC (4.40-5.90) Mil/uL Hgb (12.0-18.0) g/dL Hct (35.0-51.0) % MCV (80.0-94.0) fL MCH (27.0-31.0) pg MCHC (33.0-37.0) g/dL RDW (11.5-14.5) % Plt Count (130-400) K/uL MPV (7.2-11.7) fL Neut % (Auto) (50.0-75.0) % Lymph % (Auto) (20.0-40.0) % Frederick % (Auto) (0.0-10.0) % Eos % (Auto) (0.0-4.0) % Baso % (Auto) (0.0-2.0) % Neut # (Auto) (1.8-7.0) K/uL Lymph # (Auto) (1.0-4.3) K/uL Frederick # (Auto) (0.0-0.8) K/uL Eos # (Auto) (0.0-0.7) K/uL Baso # (Auto) (0.0-0.2) K/uL PT (9.7-12.2) SECONDS INR APTT (21-34) SECONDS Plt Function Assay 70 K/uL Hep-Constanza Thrombocytopen Negative (Negative) Sodium (132-148) mmol/L Potassium (3.6-5.2) mmol/L Chloride (98-107) mmol/L Carbon Dioxide (22-30) mmol/L Anion Gap (10-20) BUN (9-20) mg/dL Creatinine (0.8-1.5) mg/dL Est GFR ( Amer) Est GFR (Non-Af Amer) POC Glucose (mg/dL) 92 (65-110) mg/dL Random Glucose (75-110) mg/dL Calcium (8.6-10.4) mg/dl Phosphorus (2.5-4.5) mg/dL Magnesium (1.6-2.3) mg/dL Total Bilirubin (0.2-1.3) mg/dL AST (17-59) U/L ALT (21-72) U/L Alkaline Phosphatase (38-126) U/L Total Protein (6.3-8.3) g/dL Albumin (3.5-5.0) g/dL Globulin (2.2-3.9) gm/dL Albumin/Globulin Ratio (1.0-2.1) Heparin-induced Plt Ab (Negative) 08/17/17 Range/Units 10:48 WBC (4.8-10.8) K/uL RBC (4.40-5.90) Mil/uL Hgb (12.0-18.0) g/dL Hct (35.0-51.0) % MCV (80.0-94.0) fL MCH (27.0-31.0) pg MCHC (33.0-37.0) g/dL RDW (11.5-14.5) % Plt Count (130-400) K/uL MPV (7.2-11.7) fL Neut % (Auto) (50.0-75.0) % Lymph % (Auto) (20.0-40.0) % Frederick % (Auto) (0.0-10.0) % Eos % (Auto) (0.0-4.0) % Baso % (Auto) (0.0-2.0) % Neut # (Auto) (1.8-7.0) K/uL Lymph # (Auto) (1.0-4.3) K/uL Frederick # (Auto) (0.0-0.8) K/uL Eos # (Auto) (0.0-0.7) K/uL Baso # (Auto) (0.0-0.2) K/uL PT (9.7-12.2) SECONDS INR APTT (21-34) SECONDS Plt Function Assay K/uL Hep-Constanza Thrombocytopen (Negative) Sodium (132-148) mmol/L Potassium (3.6-5.2) mmol/L Chloride (98-107) mmol/L Carbon Dioxide (22-30) mmol/L Anion Gap (10-20) BUN (9-20) mg/dL Creatinine (0.8-1.5) mg/dL Est GFR ( Amer) Est GFR (Non-Af Amer) POC Glucose (mg/dL) (65-110) mg/dL Random Glucose (75-110) mg/dL Calcium (8.6-10.4) mg/dl Phosphorus (2.5-4.5) mg/dL Magnesium (1.6-2.3) mg/dL Total Bilirubin (0.2-1.3) mg/dL AST (17-59) U/L ALT (21-72) U/L Alkaline Phosphatase (38-126) U/L Total Protein (6.3-8.3) g/dL Albumin (3.5-5.0) g/dL Globulin (2.2-3.9) gm/dL Albumin/Globulin Ratio (1.0-2.1) Heparin-induced Plt Ab Negative (Negative) Laboratory Results - last 24 hr 08/17/17 08/17/17 08/20/17 10:48 10:48 12:15 WBC RBC Hgb Hct MCV MCH MCHC RDW Plt Count MPV Neut % (Auto) Lymph % (Auto) Frederick % (Auto) Eos % (Auto) Baso % (Auto) Neut # (Auto) Lymph # (Auto) Frederick # (Auto) Eos # (Auto) Baso # (Auto) PT INR APTT Plt Function Assay Hep-Constanza Thrombocytopen Negative Sodium Potassium Chloride Carbon Dioxide Anion Gap BUN Creatinine Est GFR ( Amer) Est GFR (Non-Af Amer) POC Glucose (mg/dL) 92 Random Glucose Calcium Phosphorus Magnesium Total Bilirubin AST ALT Alkaline Phosphatase Total Protein Albumin Globulin Albumin/Globulin Ratio Heparin-induced Plt Ab Negative 08/20/17 08/20/17 08/20/17 13:58 14:40 14:40 WBC 3.4 L RBC 2.61 L Hgb 7.1 L Hct 22.0 L MCV 84.4 MCH 27.3 MCHC 32.3 L RDW 19.0 H Plt Count 95 L MPV 9.5 Neut % (Auto) 48.7 L Lymph % (Auto) 18.9 L Frederick % (Auto) 18.9 H Eos % (Auto) 12.5 H Baso % (Auto) 1.0 Neut # (Auto) 1.6 L Lymph # (Auto) 0.6 L Frederick # (Auto) 0.6 Eos # (Auto) 0.4 Baso # (Auto) 0.0 PT 14.6 H INR 1.3 APTT 53 H Plt Function Assay 70 Hep-Constanza Thrombocytopen Sodium Potassium Chloride Carbon Dioxide Anion Gap BUN Creatinine Est GFR ( Amer) Est GFR (Non-Af Amer) POC Glucose (mg/dL) Random Glucose Calcium Phosphorus Magnesium Total Bilirubin AST ALT Alkaline Phosphatase Total Protein Albumin Globulin Albumin/Globulin Ratio Heparin-induced Plt Ab 08/20/17 08/20/17 08/20/17 16:12 19:13 20:16 WBC 3.6 L RBC 2.58 L Hgb 7.2 L Hct 22.1 L MCV 85.7 MCH 28.1 MCHC 32.8 L RDW 19.4 H Plt Count 104 L MPV 9.3 Neut % (Auto) 47.3 L Lymph % (Auto) 22.9 Frederick % (Auto) 13.2 H Eos % (Auto) 13.7 H Baso % (Auto) 2.9 H Neut # (Auto) 1.7 L Lymph # (Auto) 0.8 L Frederick # (Auto) 0.5 Eos # (Auto) 0.5 Baso # (Auto) 0.1 PT INR APTT Plt Function Assay Hep-Constanza Thrombocytopen Sodium Potassium Chloride Carbon Dioxide Anion Gap BUN Creatinine Est GFR ( Amer) Est GFR (Non-Af Amer) POC Glucose (mg/dL) 100 90 Random Glucose Calcium Phosphorus Magnesium Total Bilirubin AST ALT Alkaline Phosphatase Total Protein Albumin Globulin Albumin/Globulin Ratio Heparin-induced Plt Ab 08/20/17 08/21/17 08/21/17 23:40 06:07 06:28 WBC RBC Hgb Hct MCV MCH MCHC RDW Plt Count MPV Neut % (Auto) Lymph % (Auto) Frederick % (Auto) Eos % (Auto) Baso % (Auto) Neut # (Auto) Lymph # (Auto) Frederick # (Auto) Eos # (Auto) Baso # (Auto) PT INR APTT Plt Function Assay Hep-Constanza Thrombocytopen Sodium 129 L Potassium 4.2 Chloride 96 L Carbon Dioxide 30 Anion Gap 8 L BUN 14 Creatinine 2.2 H Est GFR ( Amer) 37 Est GFR (Non-Af Amer) 31 POC Glucose (mg/dL) 96 95 Random Glucose 96 Calcium 7.7 L Phosphorus Magnesium Total Bilirubin 0.8 AST 18 ALT 14 L D Alkaline Phosphatase 177 H Total Protein 6.0 L Albumin 1.9 L Globulin 4.1 H Albumin/Globulin Ratio 0.5 L Heparin-induced Plt Ab 08/21/17 08/21/17 08/21/17 06:28 06:30 08:59 WBC 3.6 L RBC 2.45 L Hgb 7.2 L Hct 21.6 L MCV 88.1 D MCH 29.3 MCHC 33.3 RDW 19.6 H Plt Count 95 L MPV 10.0 Neut % (Auto) 49.5 L Lymph % (Auto) 21.4 Frederick % (Auto) 15.8 H Eos % (Auto) 12.3 H Baso % (Auto) 1.0 Neut # (Auto) 1.8 Lymph # (Auto) 0.8 L Frederick # (Auto) 0.6 Eos # (Auto) 0.4 Baso # (Auto) 0.0 PT INR APTT Plt Function Assay Hep-Constanza Thrombocytopen Sodium Potassium Chloride Carbon Dioxide Anion Gap BUN Creatinine Est GFR ( Amer) Est GFR (Non-Af Amer) POC Glucose (mg/dL) 112 H Random Glucose Calcium Phosphorus 2.1 L Magnesium 1.7 Total Bilirubin AST ALT Alkaline Phosphatase Total Protein Albumin Globulin Albumin/Globulin Ratio Heparin-induced Plt Ab 08/21/17 11:27 WBC RBC Hgb Hct MCV MCH MCHC RDW Plt Count MPV Neut % (Auto) Lymph % (Auto) Frederick % (Auto) Eos % (Auto) Baso % (Auto) Neut # (Auto) Lymph # (Auto) Frederick # (Auto) Eos # (Auto) Baso # (Auto) PT INR APTT Plt Function Assay Hep-Constanza Thrombocytopen Sodium Potassium Chloride Carbon Dioxide Anion Gap BUN Creatinine Est GFR ( Amer) Est GFR (Non-Af Amer) POC Glucose (mg/dL) 104 Random Glucose Calcium Phosphorus Magnesium Total Bilirubin AST ALT Alkaline Phosphatase Total Protein Albumin Globulin Albumin/Globulin Ratio Heparin-induced Plt Ab Fingerstick Blood Sugar Results: 112 Review of Systems - Review of Systems Systems not reviewed;Unavailable: Acuity of Condition Critical Care Progress Note - Nutrition Nutrition: Nutrition Category Date Time Status NPO Diet [DIET] Diets 08/13/17 Breakfast Active Assessment/Plan - Assessment and Plan (Free Text) Plan: Psych: no active problems Cardio: hx of CAD, HTN ASA 81mg QD Coreg 6.25 PO BID Plavix 75mg PO QD Rosuvastatin 2.5mg PO QHS ([place]adhvi) echo 2/2/18 - normal LVEF, mild-mod PULM HTN, normal wall motion Pulm: hx of Respiratory failure s/p intubation, COPD, hypoxemia Psuedomonas + trach culture n 08/10/17 Tracheostomy (08/15/17) Aspiration s/p trach - MDRO Gram neg rods, Actinobacter + trach culture 08/17/17 vancomycin/mena/diflucan ABG after HD GI: Chronic Dysphagia ([place]) G placement later this week Sucrafalfate Nephro tube feeds at 20cc/hr Renal: ESRD ([place]) HD: T, Th, Sat Hypotension / HD 12.5 Albumin IVP x 2 400cc NS bolus Endo: IDDM, hypothyroidism, hypoglycemia ISS D10 30cc/hr ID: Septic Shock 08/10 aspiration ([place]) Aspiration s/p trach - MDRO Gram neg rods + trach culture 08/17/17 vanc/diflucan/Amikacin Heme/Onc: blood culture neg PPx: Pepcid 20 IVP QD Heparin 5,000 units SC QD Remove R femoral A line full code <Luis Sweet S - Last Filed: 08/21/17 17:52> CCU Objective - Vital Signs / Intake & Output Vital Signs (Last 4 hours): Vital Signs Temp Pulse Resp BP Pulse Ox 08/21/17 17:00 74 22 100 08/21/17 16:47 69 22 86/13 L 100 08/21/17 16:00 98.3 F 63 22 100 08/21/17 15:47 64 22 96/22 L 100 08/21/17 15:00 65 22 100 08/21/17 14:46 64 22 105/43 L 100 08/21/17 14:00 67 22 100 Intake and Output (Last 8hrs): Intake & Output 08/21/17 08/21/17 08/21/17 06:59 14:59 22:59 Intake Total 480 930 500 Output Total 250 0 Balance 230 930 500 Weight 171 lb 15.369 oz Intake: Intake, IV Amount 240 690 390 Right Distal Port 450 300 Right PICC 240 240 90 Tube Feeding 240 240 110 Output: Urine 250 0 Urine, Voided 250 0 Other: # Bowel Movements 1 - Medications Active Medications: Active Medications Generic Name Dose Route Start Last Admin Trade Name Freq PRN Reason Stop Dose Admin Acetaminophen 120 mg 08/14/17 04:10 08/19/17 22:53 Tylenol 120mg Supp TX 120 mg Q6 PRN Administration Fever >100.4 F Aspirin 81 mg 08/11/17 10:00 08/20/17 09:28 Aspirin Chewable PO 81 mg DAILY BAYLEE Administration Carvedilol 6.25 mg 08/11/17 10:00 08/21/17 17:17 Coreg PO Not Given BID BAYLEE Clopidogrel Bisulfate 75 mg 08/11/17 10:00 08/20/17 09:10 Plavix PO 75 mg DAILY BAYLEE Administration Docusate Sodium 100 mg 08/10/17 20:10 Colace PO BID PRN Constipation Famotidine 20 mg 08/11/17 10:00 08/21/17 11:46 Pepcid IVP 20 mg DAILY BAYLEE Administration Meropenem 500 mg/ Sodium 100 mls @ 100 mls/hr 08/15/17 13:15 08/21/17 15:06 Chloride IVPB 100 mls/hr Q12H BAYLEE Administration Fluconazole 200 mls @ 100 mls/hr 08/15/17 14:00 08/21/17 15:41 Diflucan Iv 400mg/200ml Ns IVPB 100 mls/hr Q24H BAYLEE Administration Dextrose 500 mls @ 30 mls/hr 08/17/17 10:30 08/21/17 15:08 Dextrose 10% In Water IV Not Given .[id number] BAYLEE Amikacin Sulfate 750 mg/ 253 mls @ 250 mls/hr 08/18/17 10:00 08/21/17 11:47 Sodium Chloride IVPB 250 mls/hr TTS BAYLEE Administration Vancomycin/Sodium Chloride 1 gm in 200 mls @ 133.333 mls/hr 08/18/17 10:00 12:54 Vancomycin 1 Gm/Ns 200 Ml IVPB 08/23/17 10:01 133.333 mls/hr TTS BAYLEE Administration Insulin Aspart 0 unit 08/21/17 12:00 08/21/17 16:24 Novolog SC Not Given Q4H [facility] Protocol Rosuvastatin Calcium 2.5 mg 08/11/17 22:00 08/20/17 23:47 Crestor PO 2.5 mg HS BAYLEE Administration Sucralfate 1 gm 08/10/17 20:15 08/21/17 13:15 Carafate Oral Susp NG 1 gm Q6H BAYLEE Administration Vitamin A 4 ea 08/13/17 18:00 08/21/17 17:18 Vitamin A & D Oint Ud Foilpak TOP 4 ea BID BAYLEE Administration - Patient Studies Lab Studies: Microbiology Studies 08/16/17 04:00 Blood Culture - Final Blood NO GROWTH AFTER 5 DAYS Gram Stain - Final TEST NOT PERFORMED 08/16/17 04:00 Blood Culture - Final Blood NO GROWTH AFTER 5 DAYS Gram Stain - Final TEST NOT PERFORMED 08/15/17 12:30 Blood Culture - Final Blood NO GROWTH AFTER 5 DAYS Gram Stain - Final TEST NOT PERFORMED 08/15/17 12:00 Blood Culture - Final Blood NO GROWTH AFTER 5 DAYS Gram Stain - Final TEST NOT PERFORMED Lab Studies 08/21/17 08/21/17 08/21/17 Range/Units 16:15 12:30 11:27 WBC (4.8-10.8) K/uL RBC (4.40-5.90) Mil/uL Hgb (12.0-18.0) g/dL Hct (35.0-51.0) % MCV (80.0-94.0) fL MCH (27.0-31.0) pg MCHC (33.0-37.0) g/dL RDW (11.5-14.5) % Plt Count (130-400) K/uL MPV (7.2-11.7) fL Neut % (Auto) (50.0-75.0) % Lymph % (Auto) (20.0-40.0) % Frederick % (Auto) (0.0-10.0) % Eos % (Auto) (0.0-4.0) % Baso % (Auto) (0.0-2.0) % Neut # (Auto) (1.8-7.0) K/uL Lymph # (Auto) (1.0-4.3) K/uL Frederick # (Auto) (0.0-0.8) K/uL Eos # (Auto) (0.0-0.7) K/uL Baso # (Auto) (0.0-0.2) K/uL Hep-Constanza Thrombocytopen (Negative) Puncture Site Sparkle pCO2 41 (35-45) mm/Hg pO2 160 H (80-100) mm/Hg HCO3 27.5 (21-28) mmol/L ABG pH 7.44 (7.35-7.45) ABG Total CO2 29.1 H (22-28) mmol/L ABG O2 Saturation 99.6 H (95-98) % ABG Base Excess 3.3 H (-2.0-3.0) mmol/L ABG Hemoglobin 6.8 L (11.7-17.4) g/dL ABG Carboxyhemoglobin 2.3 H (0.5-1.5) % POC ABG HHb (Measured) 0.4 (0.0-5.0) % ABG Methemoglobin 0.6 (0.0-3.0) % Juan Test Na A-a O2 Difference 145.0 mm/Hg Respiratory Index 0.9 Hgb O2 Saturation 96.6 (95.0-98.0) % Vent Mode Prvc FiO2 50.0 % Tidal Volume 450 PEEP 5 Sodium (132-148) mmol/L Potassium (3.6-5.2) mmol/L Chloride (98-107) mmol/L Carbon Dioxide (22-30) mmol/L Anion Gap (10-20) BUN (9-20) mg/dL Creatinine (0.8-1.5) mg/dL Est GFR ( Amer) Est GFR (Non-Af Amer) POC Glucose (mg/dL) 86 104 (65-110) mg/dL Random Glucose (75-110) mg/dL Calcium (8.6-10.4) mg/dl Phosphorus (2.5-4.5) mg/dL Magnesium (1.6-2.3) mg/dL Total Bilirubin (0.2-1.3) mg/dL AST (17-59) U/L ALT (21-72) U/L Alkaline Phosphatase (38-126) U/L Total Protein (6.3-8.3) g/dL Albumin (3.5-5.0) g/dL Globulin (2.2-3.9) gm/dL Albumin/Globulin Ratio (1.0-2.1) Amikacin (see note) mg/L Heparin-induced Plt Ab (Negative) YENNY UFH Low Dose 0.1 % Release YENNY UFH Low Dose 0.5 % Release YENNY UFH High Dose 100 % Release 08/21/17 08/21/17 08/21/17 Range/Units 08:59 06:30 06:28 WBC 3.6 L (4.8-10.8) K/uL RBC 2.45 L (4.40-5.90) Mil/uL Hgb 7.2 L (12.0-18.0) g/dL Hct 21.6 L (35.0-51.0) % MCV 88.1 D (80.0-94.0) fL MCH 29.3 (27.0-31.0) pg MCHC 33.3 (33.0-37.0) g/dL RDW 19.6 H (11.5-14.5) % Plt Count 95 L (130-400) K/uL MPV 10.0 (7.2-11.7) fL Neut % (Auto) 49.5 L (50.0-75.0) % Lymph % (Auto) 21.4 (20.0-40.0) % Frederick % (Auto) 15.8 H (0.0-10.0) % Eos % (Auto) 12.3 H (0.0-4.0) % Baso % (Auto) 1.0 (0.0-2.0) % Neut # (Auto) 1.8 (1.8-7.0) K/uL Lymph # (Auto) 0.8 L (1.0-4.3) K/uL Frederick # (Auto) 0.6 (0.0-0.8) K/uL Eos # (Auto) 0.4 (0.0-0.7) K/uL Baso # (Auto) 0.0 (0.0-0.2) K/uL Hep-Constanza Thrombocytopen (Negative) Puncture Site pCO2 (35-45) mm/Hg pO2 (80-100) mm/Hg HCO3 (21-28) mmol/L ABG pH (7.35-7.45) ABG Total CO2 (22-28) mmol/L ABG O2 Saturation (95-98) % ABG Base Excess (-2.0-3.0) mmol/L ABG Hemoglobin (11.7-17.4) g/dL ABG Carboxyhemoglobin (0.5-1.5) % POC ABG HHb (Measured) (0.0-5.0) % ABG Methemoglobin (0.0-3.0) % Juan Test A-a O2 Difference mm/Hg Respiratory Index Hgb O2 Saturation (95.0-98.0) % Vent Mode FiO2 % Tidal Volume PEEP Sodium (132-148) mmol/L Potassium (3.6-5.2) mmol/L Chloride (98-107) mmol/L Carbon Dioxide (22-30) mmol/L Anion Gap (10-20) BUN (9-20) mg/dL Creatinine (0.8-1.5) mg/dL Est GFR ( Amer) Est GFR (Non-Af Amer) POC Glucose (mg/dL) 112 H (65-110) mg/dL Random Glucose (75-110) mg/dL Calcium (8.6-10.4) mg/dl Phosphorus 2.1 L (2.5-4.5) mg/dL Magnesium 1.7 (1.6-2.3) mg/dL Total Bilirubin (0.2-1.3) mg/dL AST (17-59) U/L ALT (21-72) U/L Alkaline Phosphatase (38-126) U/L Total Protein (6.3-8.3) g/dL Albumin (3.5-5.0) g/dL Globulin (2.2-3.9) gm/dL Albumin/Globulin Ratio (1.0-2.1) Amikacin (see note) mg/L Heparin-induced Plt Ab (Negative) YENNY UFH Low Dose 0.1 % Release YENNY UFH Low Dose 0.5 % Release YENNY UFH High Dose 100 % Release 08/21/17 08/21/17 08/20/17 Range/Units 06:28 06:07 23:40 WBC (4.8-10.8) K/uL RBC (4.40-5.90) Mil/uL Hgb (12.0-18.0) g/dL Hct (35.0-51.0) % MCV (80.0-94.0) fL MCH (27.0-31.0) pg MCHC (33.0-37.0) g/dL RDW (11.5-14.5) % Plt Count (130-400) K/uL MPV (7.2-11.7) fL Neut % (Auto) (50.0-75.0) % Lymph % (Auto) (20.0-40.0) % Frederick % (Auto) (0.0-10.0) % Eos % (Auto) (0.0-4.0) % Baso % (Auto) (0.0-2.0) % Neut # (Auto) (1.8-7.0) K/uL Lymph # (Auto) (1.0-4.3) K/uL Frederick # (Auto) (0.0-0.8) K/uL Eos # (Auto) (0.0-0.7) K/uL Baso # (Auto) (0.0-0.2) K/uL Hep-Constanza Thrombocytopen (Negative) Puncture Site pCO2 (35-45) mm/Hg pO2 (80-100) mm/Hg HCO3 (21-28) mmol/L ABG pH (7.35-7.45) ABG Total CO2 (22-28) mmol/L ABG O2 Saturation (95-98) % ABG Base Excess (-2.0-3.0) mmol/L ABG Hemoglobin (11.7-17.4) g/dL ABG Carboxyhemoglobin (0.5-1.5) % POC ABG HHb (Measured) (0.0-5.0) % ABG Methemoglobin (0.0-3.0) % Juan Test A-a O2 Difference mm/Hg Respiratory Index Hgb O2 Saturation (95.0-98.0) % Vent Mode FiO2 % Tidal Volume PEEP Sodium 129 L (132-148) mmol/L Potassium 4.2 (3.6-5.2) mmol/L Chloride 96 L (98-107) mmol/L Carbon Dioxide 30 (22-30) mmol/L Anion Gap 8 L (10-20) BUN 14 (9-20) mg/dL Creatinine 2.2 H (0.8-1.5) mg/dL Est GFR ( Amer) 37 Est GFR (Non-Af Amer) 31 POC Glucose (mg/dL) 95 96 (65-110) mg/dL Random Glucose 96 (75-110) mg/dL Calcium 7.7 L (8.6-10.4) mg/dl Phosphorus (2.5-4.5) mg/dL Magnesium (1.6-2.3) mg/dL Total Bilirubin 0.8 (0.2-1.3) mg/dL AST 18 (17-59) U/L ALT 14 L D (21-72) U/L Alkaline Phosphatase 177 H (38-126) U/L Total Protein 6.0 L (6.3-8.3) g/dL Albumin 1.9 L (3.5-5.0) g/dL Globulin 4.1 H (2.2-3.9) gm/dL Albumin/Globulin Ratio 0.5 L (1.0-2.1) Amikacin (see note) mg/L Heparin-induced Plt Ab (Negative) YENNY UFH Low Dose 0.1 % Release YENNY UFH Low Dose 0.5 % Release YENNY UFH High Dose 100 % Release 08/20/17 08/20/17 08/19/17 Range/Units 20:16 19:13 08:45 WBC 3.6 L (4.8-10.8) K/uL RBC 2.58 L (4.40-5.90) Mil/uL Hgb 7.2 L (12.0-18.0) g/dL Hct 22.1 L (35.0-51.0) % MCV 85.7 (80.0-94.0) fL MCH 28.1 (27.0-31.0) pg MCHC 32.8 L (33.0-37.0) g/dL RDW 19.4 H (11.5-14.5) % Plt Count 104 L (130-400) K/uL MPV 9.3 (7.2-11.7) fL Neut % (Auto) 47.3 L (50.0-75.0) % Lymph % (Auto) 22.9 (20.0-40.0) % Frederick % (Auto) 13.2 H (0.0-10.0) % Eos % (Auto) 13.7 H (0.0-4.0) % Baso % (Auto) 2.9 H (0.0-2.0) % Neut # (Auto) 1.7 L (1.8-7.0) K/uL Lymph # (Auto) 0.8 L (1.0-4.3) K/uL Frederick # (Auto) 0.5 (0.0-0.8) K/uL Eos # (Auto) 0.5 (0.0-0.7) K/uL Baso # (Auto) 0.1 (0.0-0.2) K/uL Hep-Constanza Thrombocytopen Negative (Negative) Puncture Site pCO2 (35-45) mm/Hg pO2 (80-100) mm/Hg HCO3 (21-28) mmol/L ABG pH (7.35-7.45) ABG Total CO2 (22-28) mmol/L ABG O2 Saturation (95-98) % ABG Base Excess (-2.0-3.0) mmol/L ABG Hemoglobin (11.7-17.4) g/dL ABG Carboxyhemoglobin (0.5-1.5) % POC ABG HHb (Measured) (0.0-5.0) % ABG Methemoglobin (0.0-3.0) % Juan Test A-a O2 Difference mm/Hg Respiratory Index Hgb O2 Saturation (95.0-98.0) % Vent Mode FiO2 % Tidal Volume PEEP Sodium (132-148) mmol/L Potassium (3.6-5.2) mmol/L Chloride (98-107) mmol/L Carbon Dioxide (22-30) mmol/L Anion Gap (10-20) BUN (9-20) mg/dL Creatinine (0.8-1.5) mg/dL Est GFR ( Amer) Est GFR (Non-Af Amer) POC Glucose (mg/dL) 90 (65-110) mg/dL Random Glucose (75-110) mg/dL Calcium (8.6-10.4) mg/dl Phosphorus (2.5-4.5) mg/dL Magnesium (1.6-2.3) mg/dL Total Bilirubin (0.2-1.3) mg/dL AST (17-59) U/L ALT (21-72) U/L Alkaline Phosphatase (38-126) U/L Total Protein (6.3-8.3) g/dL Albumin (3.5-5.0) g/dL Globulin (2.2-3.9) gm/dL Albumin/Globulin Ratio (1.0-2.1) Amikacin (see note) mg/L Heparin-induced Plt Ab (Negative) YENNY UFH Low Dose 0.1 0 % Release YENNY UFH Low Dose 0.5 0 % Release YENNY UFH High Dose 100 0 % Release 08/19/17 08/17/17 08/17/17 Range/Units 08:45 10:48 10:48 WBC (4.8-10.8) K/uL RBC (4.40-5.90) Mil/uL Hgb (12.0-18.0) g/dL Hct (35.0-51.0) % MCV (80.0-94.0) fL MCH (27.0-31.0) pg MCHC (33.0-37.0) g/dL RDW (11.5-14.5) % Plt Count (130-400) K/uL MPV (7.2-11.7) fL Neut % (Auto) (50.0-75.0) % Lymph % (Auto) (20.0-40.0) % Frederick % (Auto) (0.0-10.0) % Eos % (Auto) (0.0-4.0) % Baso % (Auto) (0.0-2.0) % Neut # (Auto) (1.8-7.0) K/uL Lymph # (Auto) (1.0-4.3) K/uL Frederick # (Auto) (0.0-0.8) K/uL Eos # (Auto) (0.0-0.7) K/uL Baso # (Auto) (0.0-0.2) K/uL Hep-Constanza Thrombocytopen Negative (Negative) Puncture Site pCO2 (35-45) mm/Hg pO2 (80-100) mm/Hg HCO3 (21-28) mmol/L ABG pH (7.35-7.45) ABG Total CO2 (22-28) mmol/L ABG O2 Saturation (95-98) % ABG Base Excess (-2.0-3.0) mmol/L ABG Hemoglobin (11.7-17.4) g/dL ABG Carboxyhemoglobin (0.5-1.5) % POC ABG HHb (Measured) (0.0-5.0) % ABG Methemoglobin (0.0-3.0) % Juan Test A-a O2 Difference mm/Hg Respiratory Index Hgb O2 Saturation (95.0-98.0) % Vent Mode FiO2 % Tidal Volume PEEP Sodium (132-148) mmol/L Potassium (3.6-5.2) mmol/L Chloride (98-107) mmol/L Carbon Dioxide (22-30) mmol/L Anion Gap (10-20) BUN (9-20) mg/dL Creatinine (0.8-1.5) mg/dL Est GFR ( Amer) Est GFR (Non-Af Amer) POC Glucose (mg/dL) (65-110) mg/dL Random Glucose (75-110) mg/dL Calcium (8.6-10.4) mg/dl Phosphorus (2.5-4.5) mg/dL Magnesium (1.6-2.3) mg/dL Total Bilirubin (0.2-1.3) mg/dL AST (17-59) U/L ALT (21-72) U/L Alkaline Phosphatase (38-126) U/L Total Protein (6.3-8.3) g/dL Albumin (3.5-5.0) g/dL Globulin (2.2-3.9) gm/dL Albumin/Globulin Ratio (1.0-2.1) Amikacin 11.5 (see note) mg/L Heparin-induced Plt Ab Negative (Negative) YENNY UFH Low Dose 0.1 0 % Release YENNY UFH Low Dose 0.5 0 % Release YENNY UFH High Dose 100 0 % Release 08/17/17 Range/Units 10:48 WBC (4.8-10.8) K/uL RBC (4.40-5.90) Mil/uL Hgb (12.0-18.0) g/dL Hct (35.0-51.0) % MCV (80.0-94.0) fL MCH (27.0-31.0) pg MCHC (33.0-37.0) g/dL RDW (11.5-14.5) % Plt Count (130-400) K/uL MPV (7.2-11.7) fL Neut % (Auto) (50.0-75.0) % Lymph % (Auto) (20.0-40.0) % Frederick % (Auto) (0.0-10.0) % Eos % (Auto) (0.0-4.0) % Baso % (Auto) (0.0-2.0) % Neut # (Auto) (1.8-7.0) K/uL Lymph # (Auto) (1.0-4.3) K/uL Frederick # (Auto) (0.0-0.8) K/uL Eos # (Auto) (0.0-0.7) K/uL Baso # (Auto) (0.0-0.2) K/uL Hep-Constanza Thrombocytopen (Negative) Puncture Site pCO2 (35-45) mm/Hg pO2 (80-100) mm/Hg HCO3 (21-28) mmol/L ABG pH (7.35-7.45) ABG Total CO2 (22-28) mmol/L ABG O2 Saturation (95-98) % ABG Base Excess (-2.0-3.0) mmol/L ABG Hemoglobin (11.7-17.4) g/dL ABG Carboxyhemoglobin (0.5-1.5) % POC ABG HHb (Measured) (0.0-5.0) % ABG Methemoglobin (0.0-3.0) % Juan Test A-a O2 Difference mm/Hg Respiratory Index Hgb O2 Saturation (95.0-98.0) % Vent Mode FiO2 % Tidal Volume PEEP Sodium (132-148) mmol/L Potassium (3.6-5.2) mmol/L Chloride (98-107) mmol/L Carbon Dioxide (22-30) mmol/L Anion Gap (10-20) BUN (9-20) mg/dL Creatinine (0.8-1.5) mg/dL Est GFR ( Amer) Est GFR (Non-Af Amer) POC Glucose (mg/dL) (65-110) mg/dL Random Glucose (75-110) mg/dL Calcium (8.6-10.4) mg/dl Phosphorus (2.5-4.5) mg/dL Magnesium (1.6-2.3) mg/dL Total Bilirubin (0.2-1.3) mg/dL AST (17-59) U/L ALT (21-72) U/L Alkaline Phosphatase (38-126) U/L Total Protein (6.3-8.3) g/dL Albumin (3.5-5.0) g/dL Globulin (2.2-3.9) gm/dL Albumin/Globulin Ratio (1.0-2.1) Amikacin (see note) mg/L Heparin-induced Plt Ab Negative (Negative) YENNY UFH Low Dose 0.1 % Release YENNY UFH Low Dose 0.5 % Release YENNY UFH High Dose 100 % Release Laboratory Results - last 24 hr 08/17/17 08/17/17 08/17/17 10:48 10:48 10:48 WBC RBC Hgb Hct MCV MCH MCHC RDW Plt Count MPV Neut % (Auto) Lymph % (Auto) Frederick % (Auto) Eos % (Auto) Baso % (Auto) Neut # (Auto) Lymph # (Auto) Frederick # (Auto) Eos # (Auto) Baso # (Auto) Hep-[facility]anza Thrombocytopen Negative Puncture Site pCO2 pO2 HCO3 ABG pH ABG Total CO2 ABG O2 Saturation ABG Base Excess ABG Hemoglobin ABG Carboxyhemoglobin POC ABG HHb (Measured) ABG Methemoglobin Juan Test A-a O2 Difference Respiratory Index Hgb O2 Saturation Vent Mode FiO2 Tidal Volume PEEP Sodium Potassium Chloride Carbon Dioxide Anion Gap BUN Creatinine Est GFR ( Amer) Est GFR (Non-Af Amer) POC Glucose (mg/dL) Random Glucose Calcium Phosphorus Magnesium Total Bilirubin AST ALT Alkaline Phosphatase Total Protein Albumin Globulin Albumin/Globulin Ratio Amikacin 11.5 Heparin-induced Plt Ab Negative YENNY UFH Low Dose 0.1 0 YENNY UFH Low Dose 0.5 0 YENNY UFH High Dose 100 0 08/19/17 08/19/17 08/20/17 08:45 08:45 19:13 WBC 3.6 L RBC 2.58 L Hgb 7.2 L Hct 22.1 L MCV 85.7 MCH 28.1 MCHC 32.8 L RDW 19.4 H Plt Count 104 L MPV 9.3 Neut % (Auto) 47.3 L Lymph % (Auto) 22.9 Frederick % (Auto) 13.2 H Eos % (Auto) 13.7 H Baso % (Auto) 2.9 H Neut # (Auto) 1.7 L Lymph # (Auto) 0.8 L Frederick # (Auto) 0.5 Eos # (Auto) 0.5 Baso # (Auto) 0.1 Hep-Constanza Thrombocytopen Negative Puncture Site pCO2 pO2 HCO3 ABG pH ABG Total CO2 ABG O2 Saturation ABG Base Excess ABG Hemoglobin ABG Carboxyhemoglobin POC ABG HHb (Measured) ABG Methemoglobin Juan Test A-a O2 Difference Respiratory Index Hgb O2 Saturation Vent Mode FiO2 Tidal Volume PEEP Sodium Potassium Chloride Carbon Dioxide Anion Gap BUN Creatinine Est GFR ( Amer) Est GFR (Non-Af Amer) POC Glucose (mg/dL) Random Glucose Calcium Phosphorus Magnesium Total Bilirubin AST ALT Alkaline Phosphatase Total Protein Albumin Globulin Albumin/Globulin Ratio Amikacin Heparin-induced Plt Ab Negative YENNY UFH Low Dose 0.1 0 YENNY UFH Low Dose 0.5 0 YENNY UFH High Dose 100 0 08/20/17 08/20/17 08/21/17 20:16 23:40 06:07 WBC RBC Hgb Hct MCV MCH MCHC RDW Plt Count MPV Neut % (Auto) Lymph % (Auto) Frederick % (Auto) Eos % (Auto) Baso % (Auto) Neut # (Auto) Lymph # (Auto) Frederick # (Auto) Eos # (Auto) Baso # (Auto) Hep-Constanza Thrombocytopen Puncture Site pCO2 pO2 HCO3 ABG pH ABG Total CO2 ABG O2 Saturation ABG Base Excess ABG Hemoglobin ABG Carboxyhemoglobin POC ABG HHb (Measured) ABG Methemoglobin Juan Test A-a O2 Difference Respiratory Index Hgb O2 Saturation Vent Mode FiO2 Tidal Volume PEEP Sodium Potassium Chloride Carbon Dioxide Anion Gap BUN Creatinine Est GFR ( Amer) Est GFR (Non-Af Amer) POC Glucose (mg/dL) 90 96 95 Random Glucose Calcium Phosphorus Magnesium Total Bilirubin AST ALT Alkaline Phosphatase Total Protein Albumin Globulin Albumin/Globulin Ratio Amikacin Heparin-induced Plt Ab YENNY UFH Low Dose 0.1 YENNY UFH Low Dose 0.5 YENNY UFH High Dose 100 08/21/17 08/21/17 08/21/17 06:28 06:28 06:30 WBC 3.6 L RBC 2.45 L Hgb 7.2 L Hct 21.6 L MCV 88.1 D MCH 29.3 MCHC 33.3 RDW 19.6 H Plt Count 95 L MPV 10.0 Neut % (Auto) 49.5 L Lymph % (Auto) 21.4 Frederick % (Auto) 15.8 H Eos % (Auto) 12.3 H Baso % (Auto) 1.0 Neut # (Auto) 1.8 Lymph # (Auto) 0.8 L Frederick # (Auto) 0.6 Eos # (Auto) 0.4 Baso # (Auto) 0.0 Hep-Constanza Thrombocytopen Puncture Site pCO2 pO2 HCO3 ABG pH ABG Total CO2 ABG O2 Saturation ABG Base Excess ABG Hemoglobin ABG Carboxyhemoglobin POC ABG HHb (Measured) ABG Methemoglobin Juan Test A-a O2 Difference Respiratory Index Hgb O2 Saturation Vent Mode FiO2 Tidal Volume PEEP Sodium 129 L Potassium 4.2 Chloride 96 L Carbon Dioxide 30 Anion Gap 8 L BUN 14 Creatinine 2.2 H Est GFR ( Amer) 37 Est GFR (Non-Af Amer) 31 POC Glucose (mg/dL) Random Glucose 96 Calcium 7.7 L Phosphorus 2.1 L Magnesium 1.7 Total Bilirubin 0.8 AST 18 ALT 14 L D Alkaline Phosphatase 177 H Total Protein 6.0 L Albumin 1.9 L Globulin 4.1 H Albumin/Globulin Ratio 0.5 L Amikacin Heparin-induced Plt Ab YENNY UFH Low Dose 0.1 YENNY UFH Low Dose 0.5 YENNY UFH High Dose 100 08/21/17 08/21/17 08/21/17 08:59 11:27 12:30 WBC RBC Hgb Hct MCV MCH MCHC RDW Plt Count MPV Neut % (Auto) Lymph % (Auto) Frederick % (Auto) Eos % (Auto) Baso % (Auto) Neut # (Auto) Lymph # (Auto) Frederick # (Auto) Eos # (Auto) Baso # (Auto) Hep-Constanza Thrombocytopen Puncture Site [place] pCO2 41 pO2 160 H HCO3 27.5 ABG pH 7.44 ABG Total CO2 29.1 H ABG O2 Saturation 99.6 H ABG Base Excess 3.3 H ABG Hemoglobin 6.8 L ABG Carboxyhemoglobin 2.3 H POC ABG HHb (Measured) 0.4 ABG Methemoglobin 0.6 Juan Test Na A-a O2 Difference 145.0 Respiratory Index 0.9 Hgb O2 Saturation 96.6 Vent Mode Prvc FiO2 50.0 Tidal Volume 450 PEEP 5 Sodium Potassium Chloride Carbon Dioxide Anion Gap BUN Creatinine Est GFR ( Amer) Est GFR (Non-Af Amer) POC Glucose (mg/dL) 112 H 104 Random Glucose Calcium Phosphorus Magnesium Total Bilirubin AST ALT Alkaline Phosphatase Total Protein Albumin Globulin Albumin/Globulin Ratio Amikacin Heparin-induced Plt Ab YENNY UFH Low Dose 0.1 YENNY UFH Low Dose 0.5 YENNY UFH High Dose 100 08/21/17 16:15 WBC RBC Hgb Hct MCV MCH MCHC RDW Plt Count MPV Neut % (Auto) Lymph % (Auto) Frederick % (Auto) Eos % (Auto) Baso % (Auto) Neut # (Auto) Lymph # (Auto) Frederick # (Auto) Eos # (Auto) Baso # (Auto) Hep-Constanza Thrombocytopen Puncture Site pCO2 pO2 HCO3 ABG pH ABG Total CO2 ABG O2 Saturation ABG Base Excess ABG Hemoglobin ABG Carboxyhemoglobin POC ABG HHb (Measured) ABG Methemoglobin Juan Test A-a O2 Difference Respiratory Index Hgb O2 Saturation Vent Mode FiO2 Tidal Volume PEEP Sodium Potassium Chloride Carbon Dioxide Anion Gap BUN Creatinine Est GFR ( Amer) Est GFR (Non-Af Amer) POC Glucose (mg/dL) 86 Random Glucose Calcium Phosphorus Magnesium Total Bilirubin AST ALT Alkaline Phosphatase Total Protein Albumin Globulin Albumin/Globulin Ratio Amikacin Heparin-induced Plt Ab YENNY UFH Low Dose 0.1 YENNY UFH Low Dose 0.5 YENNY UFH High Dose 100 Critical Care Progress Note - Nutrition Nutrition: Nutrition Category Date Time Status NPO Diet [DIET] Diets 08/13/17 Breakfast Active Attending/Attestation - Attestation I have personally seen and examined this patient.: Yes I have fully participated in the care of the patient.: Yes I have reviewed all pertinent clinical information: Yes Notes (Text): 08/21/17 17:49 patient seen and examined in the intensive care unit. Case discussed with house staff in the morning rounds. Status post hemodialysis Continue antibiotics for Acetobacterand Pseudomonasinfection Off pressors Status post tracheostomy PEG insertion when patient more stable
[2017-08-21] MEDS: Vitamins A & D Oint UD Foilpak TOP SCH ×2 (11:45→17:18)
[2017-08-21] MEDS: Amikacin Sulfate 750 MG in Sodium Chloride 0.9% 250 ML IVPB SCH (11:47)
--- NOTE | 2017-08-21 12:17 | CP.PCM.PN ---
Subjective - Date & Time of Evaluation Date of Evaluation: 08/21/17 Time of Evaluation: 12:16 - Subjective Subjective: HPI: 62 year old man with following chronic medical conditions 1. 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 CAD s/p PCI > 12 months ago 3. ESRD on HD 4. MDRO sputum 5. PEG placement planned Sedated on trach/vent ESRD on HD: via L. arm AVF Objective - Vital Signs/Intake and Output Vital Signs (last 24 hours): Temp Pulse Resp BP Pulse Ox 97.8 F 62 21 104/46 L 100 08/21/17 09:00 08/21/17 11:00 08/21/17 11:00 08/21/17 11:30 08/21/17 11:00 Intake and Output: 08/21/17 08/21/17 06:59 18:59 Intake Total 720 300 Output Total 250 0 Balance 470 300 - Medications Medications: Current Medications Acetaminophen (Tylenol 120mg Supp) 120 mg DE Q6 PRN PRN Reason: Fever >100.4 F Last Admin: 08/19/17 22:53 Dose: 120 mg Aspirin (Aspirin Chewable) 81 mg PO DAILY [facility] Last Admin: 08/20/17 09:28 Dose: 81 mg Carvedilol (Coreg) 6.25 mg PO BID [facility] Last Admin: 08/21/17 09:02 Dose: Not Given Clopidogrel Bisulfate (Plavix) 75 mg PO DAILY [facility] Last Admin: 08/20/17 09:10 Dose: 75 mg Docusate Sodium (Colace) 100 mg PO BID PRN PRN Reason: Constipation Famotidine (Pepcid) 20 mg IVP DAILY [facility] Last Admin: 08/21/17 11:46 Dose: 20 mg Meropenem 500 mg/ Sodium (Chloride) 100 mls @ 100 mls/hr IVPB Q12H [facility] Last Admin: 08/21/17 01:00 Dose: 100 mls/hr Fluconazole (Diflucan Iv 400mg/200ml Ns) 200 mls @ 100 mls/hr IVPB Q24H [facility] Last Admin: 08/20/17 15:04 Dose: 100 mls/hr Dextrose (Dextrose 10% In Water) 500 mls @ 30 mls/hr IV .[id number] [facility] Last Admin: 08/20/17 22:51 Dose: Not Given Amikacin Sulfate 750 mg/ (Sodium Chloride) 253 mls @ 250 mls/hr IVPB TTS [facility] Last Admin: 08/21/17 11:47 Dose: 250 mls/hr Vancomycin/Sodium Chloride (Vancomycin 1 Gm/Ns 200 Ml) 1 gm in 200 mls @ 133.333 mls/hr IVPB TTS [facility] Stop: 08/23/17 10:01 Last Admin: 08/18/17 09:49 Dose: 133.333 mls/hr Insulin Aspart (Novolog) 0 unit SC Q4H [facility] PRN Reason: Protocol Rosuvastatin Calcium (Crestor) 2.5 mg PO HS [facility] Last Admin: 08/20/17 23:47 Dose: 2.5 mg Sucralfate (Carafate Oral Susp) 1 gm NG Q6H [facility] Last Admin: 08/21/17 07:46 Dose: 1 gm Vitamin A (Vitamin A & D Oint Ud Foilpak) 4 ea TOP BID [facility] Last Admin: 08/21/17 11:45 Dose: 4 ea - Labs Labs: 08/21/17 06:30 08/21/17 06:28 PT 14.6 SECONDS (9.7-12.2) H 08/20/17 14:40 INR 1.3 08/20/17 14:40 APTT 53 SECONDS (21-34) H 08/20/17 14:40 - Constitutional Appears: Chronically Ill (Exam unchanghed from prior) Assessment and Plan - Assessment and Plan (Free Text) Assessment: 62 year old man with severe chronic illness and respirtory failure now s/p trachestomy acute diastolic CHF > needs more fluid removal with HD/ESRD Aspiration chronic trach/health care associated PNA - ABX broad spectrum MDRO sputum Chronic CAD PRE-OP for PEG: ASHD no evidence of regional wall motion abnormalities, No reporting hx of PCI in past 12 months. He is acceptable risk to hold dual anti platelet therapy. Echo 08/10/17: direct;ly seen by me: Normal LVEF, mod TR, mild-mod PULM HTN, normal wall motion. PEG placement pending
[2017-08-21 12:33] LABS: ARTERIAL BLOOD GAS HCO3 27.5 mmol/L (21-28); ARTERIAL BLOOD GAS HEMOGLOBIN 6.8 g/dL (11.7-17.4); ARTERIAL BLOOD GAS O2 SAT 99.6 % (95-98); ARTERIAL BLOOD GAS PCO2 41 mm/Hg (35-45); ARTERIAL BLOOD GAS PH 7.44 (7.35-7.45); ARTERIAL BLOOD GAS PO2 160 mm/Hg (80-100); ARTERIAL BLOOD GAS TCO2 29.1 mmol/L (22-28)
[2017-08-21] MEDS: Vancomycin 1 gm/NS 200 ml 1 GM/200 ML BAG IVPB SCH (12:54)
--- NOTE | 2017-08-21 13:28 | CP.PCM.PN ---
Subjective - Date & Time of Evaluation Date of Evaluation: 08/21/17 Time of Evaluation: 13:28 Objective - Vital Signs/Intake and Output Vital Signs (last 24 hours): Temp Pulse Resp BP Pulse Ox 97.8 F 62 21 104/46 L 100 08/21/17 09:00 08/21/17 11:00 08/21/17 11:00 08/21/17 11:30 08/21/17 11:00 Intake and Output: 08/21/17 08/21/17 06:59 18:59 Intake Total 720 300 Output Total 250 0 Balance 470 300 - Medications Medications: Current Medications Acetaminophen (Tylenol 120mg Supp) 120 mg ID Q6 PRN PRN Reason: Fever >100.4 F Last Admin: 08/19/17 22:53 Dose: 120 mg Aspirin (Aspirin Chewable) 81 mg PO DAILY [facility] Last Admin: 08/20/17 09:28 Dose: 81 mg Carvedilol (Coreg) 6.25 mg PO BID [facility] Last Admin: 08/21/17 09:02 Dose: Not Given Clopidogrel Bisulfate (Plavix) 75 mg PO DAILY [facility] Last Admin: 08/20/17 09:10 Dose: 75 mg Docusate Sodium (Colace) 100 mg PO BID PRN PRN Reason: Constipation Famotidine (Pepcid) 20 mg IVP DAILY [facility] Last Admin: 08/21/17 11:46 Dose: 20 mg Meropenem 500 mg/ Sodium (Chloride) 100 mls @ 100 mls/hr IVPB Q12H [facility] Last Admin: 08/21/17 01:00 Dose: 100 mls/hr Fluconazole (Diflucan Iv 400mg/200ml Ns) 200 mls @ 100 mls/hr IVPB Q24H [facility] Last Admin: 08/20/17 15:04 Dose: 100 mls/hr Dextrose (Dextrose 10% In Water) 500 mls @ 30 mls/hr IV .[id number] [facility] Last Admin: 08/20/17 22:51 Dose: Not Given Amikacin Sulfate 750 mg/ (Sodium Chloride) 253 mls @ 250 mls/hr IVPB TTS [facility] Last Admin: 08/21/17 11:47 Dose: 250 mls/hr Vancomycin/Sodium Chloride (Vancomycin 1 Gm/Ns 200 Ml) 1 gm in 200 mls @ 133.333 mls/hr IVPB TTS [facility] Stop: 08/23/17 10:01 Last Admin: 08/21/17 12:54 Dose: 133.333 mls/hr Insulin Aspart (Novolog) 0 unit SC Q4H [facility] PRN Reason: Protocol Last Admin: 08/21/17 12:56 Dose: Not Given Rosuvastatin Calcium (Crestor) 2.5 mg PO HS [facility] Last Admin: 08/20/17 23:47 Dose: 2.5 mg Sucralfate (Carafate Oral Susp) 1 gm NG Q6H [facility] Last Admin: 08/21/17 13:15 Dose: 1 gm Vitamin A (Vitamin A & D Oint Ud Foilpak) 4 ea TOP BID [facility] Last Admin: 08/21/17 11:45 Dose: 4 ea - Labs Labs: 08/21/17 06:30 08/21/17 06:28 PT 14.6 SECONDS (9.7-12.2) H 08/20/17 14:40 INR 1.3 08/20/17 14:40 APTT 53 SECONDS (21-34) H 08/20/17 14:40
[2017-08-21] MEDS: Fluconazole IV 400mg/200ml NS 200 ML IVPB SCH (15:41)
--- NOTE | 2017-08-21 17:12 | CP.PCM.PN ---
Subjective - Date & Time of Evaluation Date of Evaluation: 08/21/17 Time of Evaluation: 12:00 - Subjective Subjective: clinically same Objective - Vital Signs/Intake and Output Vital Signs (last 24 hours): Temp Pulse Resp BP Pulse Ox 98.2 F 74 22 86/13 L 100 08/21/17 12:00 08/21/17 17:00 08/21/17 17:00 08/21/17 16:47 08/21/17 17:00 Intake and Output: 08/21/17 08/21/17 06:59 18:59 Intake Total 720 1430 Output Total 250 0 Balance 470 1430 - Medications Medications: Current Medications Acetaminophen (Tylenol 120mg Supp) 120 mg OK Q6 PRN PRN Reason: Fever >100.4 F Last Admin: 08/19/17 22:53 Dose: 120 mg Aspirin (Aspirin Chewable) 81 mg PO DAILY [facility] Last Admin: 08/20/17 09:28 Dose: 81 mg Carvedilol (Coreg) 6.25 mg PO BID [facility] Last Admin: 08/21/17 09:02 Dose: Not Given Clopidogrel Bisulfate (Plavix) 75 mg PO DAILY [facility] Last Admin: 08/20/17 09:10 Dose: 75 mg Docusate Sodium (Colace) 100 mg PO BID PRN PRN Reason: Constipation Famotidine (Pepcid) 20 mg IVP DAILY [facility] Last Admin: 08/21/17 11:46 Dose: 20 mg Meropenem 500 mg/ Sodium (Chloride) 100 mls @ 100 mls/hr IVPB Q12H [facility] Last Admin: 08/21/17 15:06 Dose: 100 mls/hr Fluconazole (Diflucan Iv 400mg/200ml Ns) 200 mls @ 100 mls/hr IVPB Q24H [facility] Last Admin: 08/21/17 15:41 Dose: 100 mls/hr Dextrose (Dextrose 10% In Water) 500 mls @ 30 mls/hr IV .[id number] [facility] Last Admin: 08/21/17 15:08 Dose: Not Given Amikacin Sulfate 750 mg/ (Sodium Chloride) 253 mls @ 250 mls/hr IVPB TTS [facility] Last Admin: 08/21/17 11:47 Dose: 250 mls/hr Vancomycin/Sodium Chloride (Vancomycin 1 Gm/Ns 200 Ml) 1 gm in 200 mls @ 133.333 mls/hr IVPB TTS [facility] Stop: 08/23/17 10:01 Last Admin: 08/21/17 12:54 Dose: 133.333 mls/hr Insulin Aspart (Novolog) 0 unit SC Q4H [facility] PRN Reason: Protocol Last Admin: 08/21/17 16:24 Dose: Not Given Rosuvastatin Calcium (Crestor) 2.5 mg PO HS [facility] Last Admin: 08/20/17 23:47 Dose: 2.5 mg Sucralfate (Carafate Oral Susp) 1 gm NG Q6H [facility] Last Admin: 08/21/17 13:15 Dose: 1 gm Vitamin A (Vitamin A & D Oint Ud Foilpak) 4 ea TOP BID [facility] Last Admin: 08/21/17 11:45 Dose: 4 ea - Labs Labs: 08/21/17 06:30 08/21/17 06:28 PT 14.6 SECONDS (9.7-12.2) H 08/20/17 14:40 INR 1.3 08/20/17 14:40 APTT 53 SECONDS (21-34) H 08/20/17 14:40 - Constitutional Appears: Well - Head Exam Head Exam: ATRAUMATIC, NORMAL INSPECTION, NORMOCEPHALIC - Eye Exam Eye Exam: EOMI, Normal appearance, PERRL Pupil Exam: NORMAL ACCOMODATION, PERRL - ENT Exam ENT Exam: Mucous Membranes Moist, Normal Exam - Neck Exam Neck Exam: Full ROM, Normal Inspection. absent: Lymphadenopathy - Respiratory Exam Respiratory Exam: Decreased Breath Sounds - Cardiovascular Exam Cardiovascular Exam: REGULAR RHYTHM, +S1, +S2 - GI/Abdominal Exam GI & Abdominal Exam: Soft, Diminished Bowel Sounds - Rectal Exam Rectal Exam: Deferred
--- NOTE | 2017-08-21 17:21 | CP.PCM.PN ---
Subjective - Date & Time of Evaluation Date of Evaluation: 08/21/17 Time of Evaluation: 17:18 - Subjective Subjective: Patient's mental status is unchanged. Objective - Vital Signs/Intake and Output Vital Signs (last 24 hours): Temp Pulse Resp BP Pulse Ox 98.3 F 74 22 86/13 L 100 08/21/17 16:00 08/21/17 17:00 08/21/17 17:00 08/21/17 16:47 08/21/17 17:00 Intake and Output: 08/21/17 08/21/17 06:59 18:59 Intake Total 720 1430 Output Total 250 0 Balance 470 1430 - Medications Medications: Current Medications Acetaminophen (Tylenol 120mg Supp) 120 mg NC Q6 PRN PRN Reason: Fever >100.4 F Last Admin: 08/19/17 22:53 Dose: 120 mg Aspirin (Aspirin Chewable) 81 mg PO DAILY [facility] Last Admin: 08/20/17 09:28 Dose: 81 mg Carvedilol (Coreg) 6.25 mg PO BID [facility] Last Admin: 08/21/17 17:17 Dose: Not Given Clopidogrel Bisulfate (Plavix) 75 mg PO DAILY [facility] Last Admin: 08/20/17 09:10 Dose: 75 mg Docusate Sodium (Colace) 100 mg PO BID PRN PRN Reason: Constipation Famotidine (Pepcid) 20 mg IVP DAILY [facility] Last Admin: 08/21/17 11:46 Dose: 20 mg Meropenem 500 mg/ Sodium (Chloride) 100 mls @ 100 mls/hr IVPB Q12H [facility] Last Admin: 08/21/17 15:06 Dose: 100 mls/hr Fluconazole (Diflucan Iv 400mg/200ml Ns) 200 mls @ 100 mls/hr IVPB Q24H [facility] Last Admin: 08/21/17 15:41 Dose: 100 mls/hr Dextrose (Dextrose 10% In Water) 500 mls @ 30 mls/hr IV .[id number] [facility] Last Admin: 08/21/17 15:08 Dose: Not Given Amikacin Sulfate 750 mg/ (Sodium Chloride) 253 mls @ 250 mls/hr IVPB TTS [facility] Last Admin: 08/21/17 11:47 Dose: 250 mls/hr Vancomycin/Sodium Chloride (Vancomycin 1 Gm/Ns 200 Ml) 1 gm in 200 mls @ 133.333 mls/hr IVPB TTS [facility] Stop: 08/23/17 10:01 Last Admin: 08/21/17 12:54 Dose: 133.333 mls/hr Insulin Aspart (Novolog) 0 unit SC Q4H [facility] PRN Reason: Protocol Last Admin: 08/21/17 16:24 Dose: Not Given Rosuvastatin Calcium (Crestor) 2.5 mg PO HS [facility] Last Admin: 08/20/17 23:47 Dose: 2.5 mg Sucralfate (Carafate Oral Susp) 1 gm NG Q6H [facility] Last Admin: 08/21/17 13:15 Dose: 1 gm Vitamin A (Vitamin A & D Oint Ud Foilpak) 4 ea TOP BID [facility] Last Admin: 08/21/17 11:45 Dose: 4 ea - Labs Labs: 08/21/17 06:30 08/21/17 06:28 PT 14.6 SECONDS (9.7-12.2) H 08/20/17 14:40 INR 1.3 08/20/17 14:40 APTT 53 SECONDS (21-34) H 08/20/17 14:40 - Constitutional Appears: No Acute Distress - Neck Exam Neck Exam: absent: Lymphadenopathy, Thyromegaly - Respiratory Exam Respiratory Exam: NORMAL BREATHING PATTERN. absent: Rales, Rhonchi, Wheezes - Cardiovascular Exam Cardiovascular Exam: REGULAR RHYTHM, +S1, +S2. absent: Gallop, Rubs, Murmur - GI/Abdominal Exam GI & Abdominal Exam: Soft, Normal Bowel Sounds. absent: Tenderness, Mass, Organomegaly - Rectal Exam Rectal Exam: Deferred - Extremities Exam Extremities Exam: absent: Calf Tenderness, Pedal Edema Assessment and Plan (1) Dysphagia Assessment & Plan: Patient's WBC count is now down to 3.6, but he has pancytopenia, with HGB 7.2 and PLT 60416. The platelet function test showed 70,000 functioning platelets yesterday. CXR shows pneumonia in the right lung. PEG possibly on . Status: Acute
[2017-08-21] MEDS: Rosuvastatin Calcium 2.5 mg Tab PO SCH (21:55)
[2017-08-22] MEDS: Meropenem 500 MG in Sodium Chloride 0.9% 100 ML IVPB SCH ×2 (01:15→12:56)
[2017-08-22] MEDS: Sucralfate 1 gm/10 ml Oral Susp UD NG SCH ×4 (03:03→20:20)
[2017-08-22] MEDS: (Novolog) Insulin Aspart, Recombinant 100 u/ml 10 ml vial SC SCH ×6 (04:00→21:05)
[2017-08-22 06:51] LABS: BASO % 0.9 % (0.0-2.0); EOS # 0.4 K/uL (0.0-0.7); EOS % 10.5 % (0.0-4.0); HEMOGLOBIN 6.9 g/dL (12.0-18.0); LYMPH # 0.8 K/uL (1.0-4.3); LYMPH % 19.6 % (20.0-40.0); MEAN CELL VOLUME 87.8 fL (80.0-94.0); MEAN CORPUSCULAR HEMOGLOBIN 29.3 pg (27.0-31.0); MEAN CORPUSCULAR HGB CONC 33.4 g/dL (33.0-37.0); MEAN PLATELET VOLUME 10.1 fL (7.2-11.7); MONO # 0.6 K/uL (0.0-0.8); MONO % 14.4 % (0.0-10.0); NEUT # 2.1 K/uL (1.8-7.0); NEUT % 54.6 % (50.0-75.0); RBC 2.36 Mil/uL (4.40-5.90); RED CELL DISTRIBUTION WIDTH 20.4 % (11.5-14.5); WHITE BLOOD COUNT 3.9 K/uL (4.8-10.8)
[2017-08-22 07:08] LABS: ALB/GLOB RATIO 0.5 (1.0-2.1); CALCIUM 8.1 mg/dl (8.6-10.4)
[2017-08-22] MEDS: Vitamins A & D Oint UD Foilpak TOP SCH ×2 (10:00→18:45)
--- NOTE | 2017-08-22 11:26 | CP.CCUPN ---
<ZenaidaKraign - Last Filed: 08/22/17 15:53> CCU Subjective - Physician Review Subjective (Free Text): 08/22/17 06:52 Patient seen and examined at bedside. Per nursing no acute events overnight. Critical Care Time Spent (in minutes): 45 CCU Objective - Vital Signs / Intake & Output Vital Signs (Last 4 hours): Vital Signs Pulse Resp BP Pulse Ox 08/22/17 11:00 69 22 100 08/22/17 10:46 68 20 104/18 L 100 08/22/17 10:00 70 22 100 08/22/17 09:47 70 22 117/21 L 100 08/22/17 09:00 68 22 100 08/22/17 08:45 67 19 105/12 L 100 08/22/17 08:00 68 22 100 08/22/17 07:46 68 22 89/14 L 100 Intake and Output (Last 8hrs): Intake & Output 08/21/17 08/22/17 08/22/17 22:59 06:59 14:59 Intake Total 850 620 80 Balance 850 620 80 Weight 170 lb 0.6 oz Intake: Intake, IV Amount 540 240 30 Right Distal Port 300 Right PICC 240 240 30 Tube Feeding 310 380 50 Other: # Bowel Movements 0 0 0 - Physical Exam Head: Positive for: Atraumatic, Normocephalic Pupils: Positive for: PERRL Extroacular Muscles: Positive for: EOMI Conjunctiva: Positive for: Normal Mouth: Positive for: Moist Mucous Membranes Respiratory/Chest: Positive for: Clear to Auscultation, Good Air Exchange. Negative for: Accessory Muscle Use Cardiovascular: Positive for: Normal S1, S2, Rub Abdomen: Positive for: Normal Bowel Sounds. Negative for: Peritoneal Signs Upper Extremity: Positive for: Normal Inspection. Negative for: Cyanosis, Edema Lower Extremity: Positive for: Normal Inspection. Negative for: Edema - Medications Active Medications: Active Medications Generic Name Dose Route Start Last Admin Trade Name Freq PRN Reason Stop Dose Admin Acetaminophen 120 mg 08/14/17 04:10 08/19/17 22:53 Tylenol 120mg Supp DE 120 mg Q6 PRN Administration Fever >100.4 F Aspirin 81 mg 08/11/17 10:00 08/20/17 09:28 Aspirin Chewable PO 81 mg DAILY BAYLEE Administration Carvedilol 6.25 mg 08/11/17 10:00 08/22/17 10:03 Coreg PO 6.25 mg BID BAYLEE Administration Clopidogrel Bisulfate 75 mg 08/11/17 10:00 08/20/17 09:10 Plavix PO 75 mg DAILY BAYLEE Administration Docusate Sodium 100 mg 08/10/17 20:10 Colace PO BID PRN Constipation Famotidine 20 mg 08/11/17 10:00 08/21/17 11:46 Pepcid IVP 20 mg DAILY BAYLEE Administration Meropenem 500 mg/ Sodium 100 mls @ 100 mls/hr 08/15/17 13:15 08/22/17 01:15 Chloride IVPB 100 mls/hr Q12H BAYLEE Administration Fluconazole 200 mls @ 100 mls/hr 08/15/17 14:00 08/21/17 15:41 Diflucan Iv 400mg/200ml Ns IVPB 100 mls/hr Q24H BAYLEE Administration Dextrose 500 mls @ 30 mls/hr 08/17/17 10:30 08/22/17 08:00 Dextrose 10% In Water IV Not Given .[id number] BAYLEE Amikacin Sulfate 750 mg/ 253 mls @ 250 mls/hr 08/18/17 10:00 08/21/17 11:47 Sodium Chloride IVPB 250 mls/hr TTS BAYLEE Administration Vancomycin/Sodium Chloride 1 gm in 200 mls @ 133.333 mls/hr 08/18/17 10:00 12:54 Vancomycin 1 Gm/Ns 200 Ml IVPB 08/23/17 10:01 133.333 mls/hr TTS BAYLEE Administration Insulin Aspart 0 unit 08/21/17 12:00 08/22/17 08:00 Novolog SC Not Given Q4H [facility] Protocol Rosuvastatin Calcium 2.5 mg 08/11/17 22:00 08/21/17 21:55 Crestor PO 2.5 mg HS BAYLEE Administration Sucralfate 1 gm 08/10/17 20:15 08/22/17 10:03 Carafate Oral Susp NG 1 gm Q6H BAYLEE Administration Vitamin A 4 ea 08/13/17 18:00 08/21/17 17:18 Vitamin A & D Oint Ud Foilpak TOP 4 ea BID BAYLEE Administration - Patient Studies Lab Studies: Microbiology Studies 08/16/17 04:00 Blood Culture - Final Blood NO GROWTH AFTER 5 DAYS Gram Stain - Final TEST NOT PERFORMED 08/16/17 04:00 Blood Culture - Final Blood NO GROWTH AFTER 5 DAYS Gram Stain - Final TEST NOT PERFORMED Lab Studies 08/22/17 08/22/17 08/22/17 Range/Units 09:03 06:45 06:45 WBC 3.9 L (4.8-10.8) K/uL RBC 2.36 L (4.40-5.90) Mil/uL Hgb 6.9 L (12.0-18.0) g/dL Hct 20.8 L (35.0-51.0) % MCV 87.8 (80.0-94.0) fL MCH 29.3 (27.0-31.0) pg MCHC 33.4 (33.0-37.0) g/dL RDW 20.4 H (11.5-14.5) % Plt Count 93 L (130-400) K/uL MPV 10.1 (7.2-11.7) fL Neut % (Auto) 54.6 (50.0-75.0) % Lymph % (Auto) 19.6 L (20.0-40.0) % [place] % (Auto) 14.4 H (0.0-10.0) % Eos % (Auto) 10.5 H (0.0-4.0) % Baso % (Auto) 0.9 (0.0-2.0) % Neut # (Auto) 2.1 (1.8-7.0) K/uL Lymph # (Auto) 0.8 L (1.0-4.3) K/uL [place] # (Auto) 0.6 (0.0-0.8) K/uL Eos # (Auto) 0.4 (0.0-0.7) K/uL Baso # (Auto) 0.0 (0.0-0.2) K/uL Hep-Constanza Thrombocytopen (Negative) Puncture Site pCO2 (35-45) mm/Hg pO2 (80-100) mm/Hg HCO3 (21-28) mmol/L ABG pH (7.35-7.45) ABG Total CO2 (22-28) mmol/L ABG O2 Saturation (95-98) % ABG Base Excess (-2.0-3.0) mmol/L ABG Hemoglobin (11.7-17.4) g/dL ABG Carboxyhemoglobin (0.5-1.5) % POC ABG HHb (Measured) (0.0-5.0) % ABG Methemoglobin (0.0-3.0) % Juan Test A-a O2 Difference mm/Hg Respiratory Index Hgb O2 Saturation (95.0-98.0) % Vent Mode FiO2 % Tidal Volume PEEP Sodium 132 (132-148) mmol/L Potassium 4.1 (3.6-5.2) mmol/L Chloride 99 (98-107) mmol/L Carbon Dioxide 28 (22-30) mmol/L Anion Gap 10 (10-20) BUN 12 (9-20) mg/dL Creatinine 2.0 H (0.8-1.5) mg/dL Est GFR ( Amer) 41 Est GFR (Non-Af Amer) 34 POC Glucose (mg/dL) 95 (65-110) mg/dL Random Glucose 100 (75-110) mg/dL Calcium 8.1 L (8.6-10.4) mg/dl Total Bilirubin 0.6 (0.2-1.3) mg/dL AST 21 (17-59) U/L ALT 16 L (21-72) U/L Alkaline Phosphatase 162 H (38-126) U/L Total Protein 6.2 L (6.3-8.3) g/dL Albumin 2.0 L (3.5-5.0) g/dL Globulin 4.2 H (2.2-3.9) gm/dL Albumin/Globulin Ratio 0.5 L (1.0-2.1) Amikacin (see note) mg/L Heparin-induced Plt Ab (Negative) YENNY UFH Low Dose 0.1 % Release YENNY UFH Low Dose 0.5 % Release YENNY UFH High Dose 100 % Release 08/22/17 08/21/17 08/21/17 Range/Units 03:59 23:46 20:00 WBC (4.8-10.8) K/uL RBC (4.40-5.90) Mil/uL Hgb (12.0-18.0) g/dL Hct (35.0-51.0) % MCV (80.0-94.0) fL MCH (27.0-31.0) pg MCHC (33.0-37.0) g/dL RDW (11.5-14.5) % Plt Count (130-400) K/uL MPV (7.2-11.7) fL Neut % (Auto) (50.0-75.0) % Lymph % (Auto) (20.0-40.0) % [place] % (Auto) (0.0-10.0) % Eos % (Auto) (0.0-4.0) % Baso % (Auto) (0.0-2.0) % Neut # (Auto) (1.8-7.0) K/uL Lymph # (Auto) (1.0-4.3) K/uL [place] # (Auto) (0.0-0.8) K/uL Eos # (Auto) (0.0-0.7) K/uL Baso # (Auto) (0.0-0.2) K/uL Hep-Constanza Thrombocytopen (Negative) Puncture Site pCO2 (35-45) mm/Hg pO2 (80-100) mm/Hg HCO3 (21-28) mmol/L ABG pH (7.35-7.45) ABG Total CO2 (22-28) mmol/L ABG O2 Saturation (95-98) % ABG Base Excess (-2.0-3.0) mmol/L ABG Hemoglobin (11.7-17.4) g/dL ABG Carboxyhemoglobin (0.5-1.5) % POC ABG HHb (Measured) (0.0-5.0) % ABG Methemoglobin (0.0-3.0) % Juan Test A-a O2 Difference mm/Hg Respiratory Index Hgb O2 Saturation (95.0-98.0) % Vent Mode FiO2 % Tidal Volume PEEP Sodium (132-148) mmol/L Potassium (3.6-5.2) mmol/L Chloride (98-107) mmol/L Carbon Dioxide (22-30) mmol/L Anion Gap (10-20) BUN (9-20) mg/dL Creatinine (0.8-1.5) mg/dL Est GFR ( Amer) Est GFR (Non-Af Amer) POC Glucose (mg/dL) 109 102 102 (65-110) mg/dL Random Glucose (75-110) mg/dL Calcium (8.6-10.4) mg/dl Total Bilirubin (0.2-1.3) mg/dL AST (17-59) U/L ALT (21-72) U/L Alkaline Phosphatase (38-126) U/L Total Protein (6.3-8.3) g/dL Albumin (3.5-5.0) g/dL Globulin (2.2-3.9) gm/dL Albumin/Globulin Ratio (1.0-2.1) Amikacin (see note) mg/L Heparin-induced Plt Ab (Negative) YENNY UFH Low Dose 0.1 % Release YENNY UFH Low Dose 0.5 % Release YENNY UFH High Dose 100 % Release 08/21/17 08/21/17 08/21/17 Range/Units 16:15 12:30 11:27 WBC (4.8-10.8) K/uL RBC (4.40-5.90) Mil/uL Hgb (12.0-18.0) g/dL Hct (35.0-51.0) % MCV (80.0-94.0) fL MCH (27.0-31.0) pg MCHC (33.0-37.0) g/dL RDW (11.5-14.5) % Plt Count (130-400) K/uL MPV (7.2-11.7) fL Neut % (Auto) (50.0-75.0) % Lymph % (Auto) (20.0-40.0) % [place] % (Auto) (0.0-10.0) % Eos % (Auto) (0.0-4.0) % Baso % (Auto) (0.0-2.0) % Neut # (Auto) (1.8-7.0) K/uL Lymph # (Auto) (1.0-4.3) K/uL [place] # (Auto) (0.0-0.8) K/uL Eos # (Auto) (0.0-0.7) K/uL Baso # (Auto) (0.0-0.2) K/uL Hep-Constanza Thrombocytopen (Negative) Puncture Site [place] pCO2 41 (35-45) mm/Hg pO2 160 H (80-100) mm/Hg HCO3 27.5 (21-28) mmol/L ABG pH 7.44 (7.35-7.45) ABG Total CO2 29.1 H (22-28) mmol/L ABG O2 Saturation 99.6 H (95-98) % ABG Base Excess 3.3 H (-2.0-3.0) mmol/L ABG Hemoglobin 6.8 L (11.7-17.4) g/dL ABG Carboxyhemoglobin 2.3 H (0.5-1.5) % POC ABG HHb (Measured) 0.4 (0.0-5.0) % ABG Methemoglobin 0.6 (0.0-3.0) % Juan Test Na A-a O2 Difference 145.0 mm/Hg Respiratory Index 0.9 Hgb O2 Saturation 96.6 (95.0-98.0) % Vent Mode Prvc FiO2 50.0 % Tidal Volume 450 PEEP 5 Sodium (132-148) mmol/L Potassium (3.6-5.2) mmol/L Chloride (98-107) mmol/L Carbon Dioxide (22-30) mmol/L Anion Gap (10-20) BUN (9-20) mg/dL Creatinine (0.8-1.5) mg/dL Est GFR ( Amer) Est GFR (Non-Af Amer) POC Glucose (mg/dL) 86 104 (65-110) mg/dL Random Glucose (75-110) mg/dL Calcium (8.6-10.4) mg/dl Total Bilirubin (0.2-1.3) mg/dL AST (17-59) U/L ALT (21-72) U/L Alkaline Phosphatase (38-126) U/L Total Protein (6.3-8.3) g/dL Albumin (3.5-5.0) g/dL Globulin (2.2-3.9) gm/dL Albumin/Globulin Ratio (1.0-2.1) Amikacin (see note) mg/L Heparin-induced Plt Ab (Negative) YENNY UFH Low Dose 0.1 % Release YENNY UFH Low Dose 0.5 % Release YENNY UFH High Dose 100 % Release 0208/19/17 08/17/17 Range/Units 08:45 08:45 10:48 WBC (4.8-10.8) K/uL RBC (4.40-5.90) Mil/uL Hgb (12.0-18.0) g/dL Hct (35.0-51.0) % MCV (80.0-94.0) fL MCH (27.0-31.0) pg MCHC (33.0-37.0) g/dL RDW (11.5-14.5) % Plt Count (130-400) K/uL MPV (7.2-11.7) fL Neut % (Auto) (50.0-75.0) % Lymph % (Auto) (20.0-40.0) % [place] % (Auto) (0.0-10.0) % Eos % (Auto) (0.0-4.0) % Baso % (Auto) (0.0-2.0) % Neut # (Auto) (1.8-7.0) K/uL Lymph # (Auto) (1.0-4.3) K/uL [place] # (Auto) (0.0-0.8) K/uL Eos # (Auto) (0.0-0.7) K/uL Baso # (Auto) (0.0-0.2) K/uL Hep-Constanza Thrombocytopen Negative (Negative) Puncture Site pCO2 (35-45) mm/Hg pO2 (80-100) mm/Hg HCO3 (21-28) mmol/L ABG pH (7.35-7.45) ABG Total CO2 (22-28) mmol/L ABG O2 Saturation (95-98) % ABG Base Excess (-2.0-3.0) mmol/L ABG Hemoglobin (11.7-17.4) g/dL ABG Carboxyhemoglobin (0.5-1.5) % POC ABG HHb (Measured) (0.0-5.0) % ABG Methemoglobin (0.0-3.0) % Juan Test A-a O2 Difference mm/Hg Respiratory Index Hgb O2 Saturation (95.0-98.0) % Vent Mode FiO2 % Tidal Volume PEEP Sodium (132-148) mmol/L Potassium (3.6-5.2) mmol/L Chloride (98-107) mmol/L Carbon Dioxide (22-30) mmol/L Anion Gap (10-20) BUN (9-20) mg/dL Creatinine (0.8-1.5) mg/dL Est GFR ( Amer) Est GFR (Non-Af Amer) POC Glucose (mg/dL) (65-110) mg/dL Random Glucose (75-110) mg/dL Calcium (8.6-10.4) mg/dl Total Bilirubin (0.2-1.3) mg/dL AST (17-59) U/L ALT (21-72) U/L Alkaline Phosphatase (38-126) U/L Total Protein (6.3-8.3) g/dL Albumin (3.5-5.0) g/dL Globulin (2.2-3.9) gm/dL Albumin/Globulin Ratio (1.0-2.1) Amikacin 11.5 (see note) mg/L Heparin-induced Plt Ab Negative (Negative) YENNY UFH Low Dose 0.1 0 % Release YENNY UFH Low Dose 0.5 0 % Release YENNY UFH High Dose 100 0 % Release 08/17/17 Range/Units 10:48 WBC (4.8-10.8) K/uL RBC (4.40-5.90) Mil/uL Hgb (12.0-18.0) g/dL Hct (35.0-51.0) % MCV (80.0-94.0) fL MCH (27.0-31.0) pg MCHC (33.0-37.0) g/dL RDW (11.5-14.5) % Plt Count (130-400) K/uL MPV (7.2-11.7) fL Neut % (Auto) (50.0-75.0) % Lymph % (Auto) (20.0-40.0) % [place] % (Auto) (0.0-10.0) % Eos % (Auto) (0.0-4.0) % Baso % (Auto) (0.0-2.0) % Neut # (Auto) (1.8-7.0) K/uL Lymph # (Auto) (1.0-4.3) K/uL [place] # (Auto) (0.0-0.8) K/uL Eos # (Auto) (0.0-0.7) K/uL Baso # (Auto) (0.0-0.2) K/uL Hep-Constanza Thrombocytopen (Negative) Puncture Site pCO2 (35-45) mm/Hg pO2 (80-100) mm/Hg HCO3 (21-28) mmol/L ABG pH (7.35-7.45) ABG Total CO2 (22-28) mmol/L ABG O2 Saturation (95-98) % ABG Base Excess (-2.0-3.0) mmol/L ABG Hemoglobin (11.7-17.4) g/dL ABG Carboxyhemoglobin (0.5-1.5) % POC ABG HHb (Measured) (0.0-5.0) % ABG Methemoglobin (0.0-3.0) % Juan Test A-a O2 Difference mm/Hg Respiratory Index Hgb O2 Saturation (95.0-98.0) % Vent Mode FiO2 % Tidal Volume PEEP Sodium (132-148) mmol/L Potassium (3.6-5.2) mmol/L Chloride (98-107) mmol/L Carbon Dioxide (22-30) mmol/L Anion Gap (10-20) BUN (9-20) mg/dL Creatinine (0.8-1.5) mg/dL Est GFR ( Amer) Est GFR (Non-Af Amer) POC Glucose (mg/dL) (65-110) mg/dL Random Glucose (75-110) mg/dL Calcium (8.6-10.4) mg/dl Total Bilirubin (0.2-1.3) mg/dL AST (17-59) U/L ALT (21-72) U/L Alkaline Phosphatase (38-126) U/L Total Protein (6.3-8.3) g/dL Albumin (3.5-5.0) g/dL Globulin (2.2-3.9) gm/dL Albumin/Globulin Ratio (1.0-2.1) Amikacin (see note) mg/L Heparin-induced Plt Ab (Negative) YENNY UFH Low Dose 0.1 0 % Release YENNY UFH Low Dose 0.5 0 % Release YENNY UFH High Dose 100 0 % Release Laboratory Results - last 24 hr 08/17/17 08/17/17 08/19/17 10:48 10:48 08:45 WBC RBC Hgb Hct MCV MCH MCHC RDW Plt Count MPV Neut % (Auto) Lymph % (Auto) [place] % (Auto) Eos % (Auto) Baso % (Auto) Neut # (Auto) Lymph # (Auto) [place] # (Auto) Eos # (Auto) Baso # (Auto) Hep-Constanza Thrombocytopen Puncture Site pCO2 pO2 HCO3 ABG pH ABG Total CO2 ABG O2 Saturation ABG Base Excess ABG Hemoglobin ABG Carboxyhemoglobin POC ABG HHb (Measured) ABG Methemoglobin Juan Test A-a O2 Difference Respiratory Index Hgb O2 Saturation Vent Mode FiO2 Tidal Volume PEEP Sodium Potassium Chloride Carbon Dioxide Anion Gap BUN Creatinine Est GFR ( Amer) Est GFR (Non-Af Amer) POC Glucose (mg/dL) Random Glucose Calcium Total Bilirubin AST ALT Alkaline Phosphatase Total Protein Albumin Globulin Albumin/Globulin Ratio Amikacin 11.5 Heparin-induced Plt Ab Negative YENNY UFH Low Dose 0.1 0 YENNY UFH Low Dose 0.5 0 YENNY UFH High Dose 100 0 08/19/17 08/21/17 08/21/17 08:45 11:27 12:30 WBC RBC Hgb Hct MCV MCH MCHC RDW Plt Count MPV Neut % (Auto) Lymph % (Auto) [place] % (Auto) Eos % (Auto) Baso % (Auto) Neut # (Auto) Lymph # (Auto) [place] # (Auto) Eos # (Auto) Baso # (Auto) Hep-Constanza Thrombocytopen Negative Puncture Site [place] pCO2 41 pO2 160 H HCO3 27.5 ABG pH 7.44 ABG Total CO2 29.1 H ABG O2 Saturation 99.6 H ABG Base Excess 3.3 H ABG Hemoglobin 6.8 L ABG Carboxyhemoglobin 2.3 H POC ABG HHb (Measured) 0.4 ABG Methemoglobin 0.6 Juan Test Na A-a O2 Difference 145.0 Respiratory Index 0.9 Hgb O2 Saturation 96.6 Vent Mode Prvc FiO2 50.0 Tidal Volume 450 PEEP 5 Sodium Potassium Chloride Carbon Dioxide Anion Gap BUN Creatinine Est GFR ( Amer) Est GFR (Non-Af Amer) POC Glucose (mg/dL) 104 Random Glucose Calcium Total Bilirubin AST ALT Alkaline Phosphatase Total Protein Albumin Globulin Albumin/Globulin Ratio Amikacin Heparin-induced Plt Ab YENNY UFH Low Dose 0.1 0 YENNY UFH Low Dose 0.5 0 YENNY UFH High Dose 100 0 08/21/17 08/21/17 08/21/17 16:15 20:00 23:46 WBC RBC Hgb Hct MCV MCH MCHC RDW Plt Count MPV Neut % (Auto) Lymph % (Auto) [place] % (Auto) Eos % (Auto) Baso % (Auto) Neut # (Auto) Lymph # (Auto) [place] # (Auto) Eos # (Auto) Baso # (Auto) Hep-Constanza Thrombocytopen Puncture Site pCO2 pO2 HCO3 ABG pH ABG Total CO2 ABG O2 Saturation ABG Base Excess ABG Hemoglobin ABG Carboxyhemoglobin POC ABG HHb (Measured) ABG Methemoglobin Juan Test A-a O2 Difference Respiratory Index Hgb O2 Saturation Vent Mode FiO2 Tidal Volume PEEP Sodium Potassium Chloride Carbon Dioxide Anion Gap BUN Creatinine Est GFR ( Amer) Est GFR (Non-Af Amer) POC Glucose (mg/dL) 86 102 102 Random Glucose Calcium Total Bilirubin AST ALT Alkaline Phosphatase Total Protein Albumin Globulin Albumin/Globulin Ratio Amikacin Heparin-induced Plt Ab YENNY UFH Low Dose 0.1 YENNY UFH Low Dose 0.5 YENNY UFH High Dose 100 08/22/17 08/22/17 08/22/17 03:59 06:45 06:45 WBC 3.9 L RBC 2.36 L Hgb 6.9 L Hct 20.8 L MCV 87.8 MCH 29.3 MCHC 33.4 RDW 20.4 H Plt Count 93 L MPV 10.1 Neut % (Auto) 54.6 Lymph % (Auto) 19.6 L [place] % (Auto) 14.4 H Eos % (Auto) 10.5 H Baso % (Auto) 0.9 Neut # (Auto) 2.1 Lymph # (Auto) 0.8 L [place] # (Auto) 0.6 Eos # (Auto) 0.4 Baso # (Auto) 0.0 Hep-Constanza Thrombocytopen Puncture Site pCO2 pO2 HCO3 ABG pH ABG Total CO2 ABG O2 Saturation ABG Base Excess ABG Hemoglobin ABG Carboxyhemoglobin POC ABG HHb (Measured) ABG Methemoglobin Juan Test A-a O2 Difference Respiratory Index Hgb O2 Saturation Vent Mode FiO2 Tidal Volume PEEP Sodium 132 Potassium 4.1 Chloride 99 Carbon Dioxide 28 Anion Gap 10 BUN 12 Creatinine 2.0 H Est GFR ( Amer) 41 Est GFR (Non-Af Amer) 34 POC Glucose (mg/dL) 109 Random Glucose 100 Calcium 8.1 L Total Bilirubin 0.6 AST 21 ALT 16 L Alkaline Phosphatase 162 H Total Protein 6.2 L Albumin 2.0 L Globulin 4.2 H Albumin/Globulin Ratio 0.5 L Amikacin Heparin-induced Plt Ab YENNY UFH Low Dose 0.1 YENNY UFH Low Dose 0.5 YENNY UFH High Dose 100 08/22/17 09:03 WBC RBC Hgb Hct MCV MCH MCHC RDW Plt Count MPV Neut % (Auto) Lymph % (Auto) [place] % (Auto) Eos % (Auto) Baso % (Auto) Neut # (Auto) Lymph # (Auto) [place] # (Auto) Eos # (Auto) Baso # (Auto) Hep-Constanza Thrombocytopen Puncture Site pCO2 pO2 HCO3 ABG pH ABG Total CO2 ABG O2 Saturation ABG Base Excess ABG Hemoglobin ABG Carboxyhemoglobin POC ABG HHb (Measured) ABG Methemoglobin Juan Test A-a O2 Difference Respiratory Index Hgb O2 Saturation Vent Mode FiO2 Tidal Volume PEEP Sodium Potassium Chloride Carbon Dioxide Anion Gap BUN Creatinine Est GFR ( Amer) Est GFR (Non-Af Amer) POC Glucose (mg/dL) 95 Random Glucose Calcium Total Bilirubin AST ALT Alkaline Phosphatase Total Protein Albumin Globulin Albumin/Globulin Ratio Amikacin Heparin-induced Plt Ab YENNY UFH Low Dose 0.1 YENNY UFH Low Dose 0.5 YENNY UFH High Dose 100 Fingerstick Blood Sugar Results: 95 Critical Care Progress Note - Nutrition Nutrition: Nutrition Category Date Time Status NPO Diet [DIET] Diets 08/13/17 Breakfast Active Assessment/Plan - Assessment and Plan (Free Text) Plan: Psych: no active problems Cardio: hx of CAD, HTN ASA 81mg QD Coreg 6.25 PO BID Plavix 75mg PO QD Rosuvastatin 2.5mg PO QHS ([place]) echo 08/10/17 - normal LVEF, mild-mod PULM HTN, normal wall motion Pulm: hx of Respiratory failure s/p intubation, COPD, hypoxemia Psuedomonas + trach culture n 08/10/17 Tracheostomy (08/15/17) Aspiration s/p trach - MDRO Gram neg rods, Actinobacter + trach culture 08/17/17 vancomycin/mena/diflucan GI: Chronic Dysphagia ([place]) Tentative G placement tomorrow per GI Sucrafalfate Nephro tube feeds at 20cc/hr Renal: ESRD ([place]) HD: T, Th, Sat Endo: IDDM, hypothyroidism, hypoglycemia ISS D10 30cc/hr ID: Septic Shock 2/2 aspiration ([place]) Aspiration s/p trach - MDRO Gram neg rods + trach culture 08/17/17 vanc/diflucan/Amikacin Heme/Onc: Anemia transfuse 1 unit PRBC blood culture neg PPx: Pepcid 20 IVP QD Heparin 5,000 units SC QD full code <KeeLuis S - Last Filed: 08/22/17 16:45> CCU Subjective - Physician Review Critical Care Time Spent (in minutes): 30 CCU Objective - Vital Signs / Intake & Output Vital Signs (Last 4 hours): Vital Signs Temp Pulse Resp BP Pulse Ox 08/22/17 16:33 72 22 111/30 L 100 08/22/17 16:19 71 22 101/19 L 100 08/22/17 16:04 70 22 109/28 L 100 08/22/17 16:00 99.7 F H 70 22 100 08/22/17 15:49 70 22 97/30 L 100 08/22/17 15:47 99.1 F 70 22 105/25 L 08/22/17 15:34 70 22 105/25 L 100 08/22/17 15:19 70 22 97/15 L 100 08/22/17 15:17 99.7 F H 70 21 106/22 L 08/22/17 15:04 70 22 111/17 L 100 08/22/17 15:02 99.8 F H 70 20 111/17 L 08/22/17 15:00 70 22 100 08/22/17 14:49 69 22 104/30 L 100 08/22/17 14:47 99.6 F 69 22 104/30 L 08/22/17 14:45 69 22 106/22 L 100 08/22/17 14:00 99.6 F 70 22 100 08/22/17 13:45 71 22 92/17 L 100 08/22/17 13:01 74 22 88/16 L 100 08/22/17 13:00 74 22 100 08/22/17 12:45 72 22 84/12 L 100 Intake and Output (Last 8hrs): Intake & Output 08/22/17 08/22/17 08/22/17 06:59 14:59 22:59 Intake Total 620 830 360 Balance 620 830 360 Weight 170 lb 0.6 oz Intake: Intake, IV Amount 240 380 60 Right PICC 240 380 60 Tube Feeding 380 400 100 Blood Product 50 200 Red Blood Cells Cpd As1 0 Lr Unit [id number] Other: # Bowel Movements 0 0 0 - Medications Active Medications: Active Medications Generic Name Dose Route Start Last Admin Trade Name Freq PRN Reason Stop Dose Admin Acetaminophen 120 mg 08/14/17 04:10 08/19/17 22:53 Tylenol 120mg Supp DE 120 mg Q6 PRN Administration Fever >100.4 F Aspirin 81 mg 08/11/17 10:00 08/20/17 09:28 Aspirin Chewable PO 81 mg DAILY BAYLEE Administration Carvedilol 6.25 mg 08/11/17 10:00 08/22/17 10:03 Coreg PO 6.25 mg BID BAYLEE Administration Clopidogrel Bisulfate 75 mg 08/11/17 10:00 08/20/17 09:10 Plavix PO 75 mg DAILY BAYLEE Administration Docusate Sodium 100 mg 08/10/17 20:10 Colace PO BID PRN Constipation Famotidine 20 mg 08/11/17 10:00 08/22/17 10:55 Pepcid IVP 20 mg DAILY BAYLEE Administration Meropenem 500 mg/ Sodium 100 mls @ 100 mls/hr 08/15/17 13:15 08/22/17 12:56 Chloride IVPB 100 mls/hr Q12H BAYLEE Administration Fluconazole 200 mls @ 100 mls/hr 08/15/17 14:00 08/22/17 14:05 Diflucan Iv 400mg/200ml Ns IVPB 100 mls/hr Q24H BAYLEE Administration Dextrose 500 mls @ 30 mls/hr 08/17/17 10:30 08/22/17 12:14 Dextrose 10% In Water IV 30 mls/hr .[id number] BAYLEE Administration Amikacin Sulfate 750 mg/ 253 mls @ 250 mls/hr 08/18/17 10:00 08/21/17 11:47 Sodium Chloride IVPB 250 mls/hr TTS BAYLEE Administration Vancomycin/Sodium Chloride 1 gm in 200 mls @ 133.333 mls/hr 08/18/17 10:00 12:54 Vancomycin 1 Gm/Ns 200 Ml IVPB 08/23/17 10:01 133.333 mls/hr TTS BAYLEE Administration Insulin Aspart 0 unit 08/21/17 12:00 08/22/17 12:00 Novolog SC Not Given Q4H BAYLEE Protocol Rosuvastatin Calcium 2.5 mg 08/11/17 22:00 08/21/17 21:55 Crestor PO 2.5 mg HS BAYLEE Administration Sucralfate 1 gm 08/10/17 20:15 08/22/17 15:01 Carafate Oral Susp NG 1 gm Q6H BAYLEE Administration Vitamin A 4 ea 08/13/17 18:00 08/22/17 10:00 Vitamin A & D Oint Ud Foilpak TOP 4 ea BID BAYLEE Administration - Patient Studies Lab Studies: Lab Studies 08/22/17 08/22/17 08/22/17 Range/Units 16:04 12:33 11:26 WBC (4.8-10.8) K/uL RBC (4.40-5.90) Mil/uL Hgb (12.0-18.0) g/dL Hct (35.0-51.0) % MCV (80.0-94.0) fL MCH (27.0-31.0) pg MCHC (33.0-37.0) g/dL RDW (11.5-14.5) % Plt Count (130-400) K/uL MPV (7.2-11.7) fL Neut % (Auto) (50.0-75.0) % Lymph % (Auto) (20.0-40.0) % [place] % (Auto) (0.0-10.0) % Eos % (Auto) (0.0-4.0) % Baso % (Auto) (0.0-2.0) % Neut # (Auto) (1.8-7.0) K/uL Lymph # (Auto) (1.0-4.3) K/uL [place] # (Auto) (0.0-0.8) K/uL Eos # (Auto) (0.0-0.7) K/uL Baso # (Auto) (0.0-0.2) K/uL Sodium (132-148) mmol/L Potassium (3.6-5.2) mmol/L Chloride (98-107) mmol/L Carbon Dioxide (22-30) mmol/L Anion Gap (10-20) BUN (9-20) mg/dL Creatinine (0.8-1.5) mg/dL Est GFR ( Amer) Est GFR (Non-Af Amer) POC Glucose (mg/dL) 95 104 (65-110) mg/dL Random Glucose (75-110) mg/dL Calcium (8.6-10.4) mg/dl Total Bilirubin (0.2-1.3) mg/dL AST (17-59) U/L ALT (21-72) U/L Alkaline Phosphatase (38-126) U/L Total Protein (6.3-8.3) g/dL Albumin (3.5-5.0) g/dL Globulin (2.2-3.9) gm/dL Albumin/Globulin Ratio (1.0-2.1) YENNY UFH Low Dose 0.1 % Release YENNY UFH Low Dose 0.5 % Release YENNY UFH High Dose 100 % Release Blood Type B POSITIVE Antibody Screen Negative 08/22/17 08/22/17 08/22/17 Range/Units 09:03 06:45 06:45 WBC 3.9 L (4.8-10.8) K/uL RBC 2.36 L (4.40-5.90) Mil/uL Hgb 6.9 L (12.0-18.0) g/dL Hct 20.8 L (35.0-51.0) % MCV 87.8 (80.0-94.0) fL MCH 29.3 (27.0-31.0) pg MCHC 33.4 (33.0-37.0) g/dL RDW 20.4 H (11.5-14.5) % Plt Count 93 L (130-400) K/uL MPV 10.1 (7.2-11.7) fL Neut % (Auto) 54.6 (50.0-75.0) % Lymph % (Auto) 19.6 L (20.0-40.0) % [place] % (Auto) 14.4 H (0.0-10.0) % Eos % (Auto) 10.5 H (0.0-4.0) % Baso % (Auto) 0.9 (0.0-2.0) % Neut # (Auto) 2.1 (1.8-7.0) K/uL Lymph # (Auto) 0.8 L (1.0-4.3) K/uL [place] # (Auto) 0.6 (0.0-0.8) K/uL Eos # (Auto) 0.4 (0.0-0.7) K/uL Baso # (Auto) 0.0 (0.0-0.2) K/uL Sodium 132 (132-148) mmol/L Potassium 4.1 (3.6-5.2) mmol/L Chloride 99 (98-107) mmol/L Carbon Dioxide 28 (22-30) mmol/L Anion Gap 10 (10-20) BUN 12 (9-20) mg/dL Creatinine 2.0 H (0.8-1.5) mg/dL Est GFR ( Amer) 41 Est GFR (Non-Af Amer) 34 POC Glucose (mg/dL) 95 (65-110) mg/dL Random Glucose 100 (75-110) mg/dL Calcium 8.1 L (8.6-10.4) mg/dl Total Bilirubin 0.6 (0.2-1.3) mg/dL AST 21 (17-59) U/L ALT 16 L (21-72) U/L Alkaline Phosphatase 162 H (38-126) U/L Total Protein 6.2 L (6.3-8.3) g/dL Albumin 2.0 L (3.5-5.0) g/dL Globulin 4.2 H (2.2-3.9) gm/dL Albumin/Globulin Ratio 0.5 L (1.0-2.1) YENNY UFH Low Dose 0.1 % Release YENNY UFH Low Dose 0.5 % Release YENNY UFH High Dose 100 % Release Blood Type Antibody Screen 02/14/18 02/13/18 02/13/18 Range/Units 03:59 23:46 20:00 WBC (4.8-10.8) K/uL RBC (4.40-5.90) Mil/uL Hgb (12.0-18.0) g/dL Hct (35.0-51.0) % MCV (80.0-94.0) fL MCH (27.0-31.0) pg MCHC (33.0-37.0) g/dL RDW (11.5-14.5) % Plt Count (130-400) K/uL MPV (7.2-11.7) fL Neut % (Auto) (50.0-75.0) % Lymph % (Auto) (20.0-40.0) % [place] % (Auto) (0.0-10.0) % Eos % (Auto) (0.0-4.0) % Baso % (Auto) (0.0-2.0) % Neut # (Auto) (1.8-7.0) K/uL Lymph # (Auto) (1.0-4.3) K/uL [place] # (Auto) (0.0-0.8) K/uL Eos # (Auto) (0.0-0.7) K/uL Baso # (Auto) (0.0-0.2) K/uL Sodium (132-148) mmol/L Potassium (3.6-5.2) mmol/L Chloride (98-107) mmol/L Carbon Dioxide (22-30) mmol/L Anion Gap (10-20) BUN (9-20) mg/dL Creatinine (0.8-1.5) mg/dL Est GFR ( Amer) Est GFR (Non-Af Amer) POC Glucose (mg/dL) 109 102 102 (65-110) mg/dL Random Glucose (75-110) mg/dL Calcium (8.6-10.4) mg/dl Total Bilirubin (0.2-1.3) mg/dL AST (17-59) U/L ALT (21-72) U/L Alkaline Phosphatase (38-126) U/L Total Protein (6.3-8.3) g/dL Albumin (3.5-5.0) g/dL Globulin (2.2-3.9) gm/dL Albumin/Globulin Ratio (1.0-2.1) YENNY UFH Low Dose 0.1 % Release YENNY UFH Low Dose 0.5 % Release YENNY UFH High Dose 100 % Release Blood Type Antibody Screen 08/19/17 08/17/17 Range/Units 08:45 10:48 WBC (4.8-10.8) K/uL RBC (4.40-5.90) Mil/uL Hgb (12.0-18.0) g/dL Hct (35.0-51.0) % MCV (80.0-94.0) fL MCH (27.0-31.0) pg MCHC (33.0-37.0) g/dL RDW (11.5-14.5) % Plt Count (130-400) K/uL MPV (7.2-11.7) fL Neut % (Auto) (50.0-75.0) % Lymph % (Auto) (20.0-40.0) % [place] % (Auto) (0.0-10.0) % Eos % (Auto) (0.0-4.0) % Baso % (Auto) (0.0-2.0) % Neut # (Auto) (1.8-7.0) K/uL Lymph # (Auto) (1.0-4.3) K/uL [place] # (Auto) (0.0-0.8) K/uL Eos # (Auto) (0.0-0.7) K/uL Baso # (Auto) (0.0-0.2) K/uL Sodium (132-148) mmol/L Potassium (3.6-5.2) mmol/L Chloride (98-107) mmol/L Carbon Dioxide (22-30) mmol/L Anion Gap (10-20) BUN (9-20) mg/dL Creatinine (0.8-1.5) mg/dL Est GFR ( Amer) Est GFR (Non-Af Amer) POC Glucose (mg/dL) (65-110) mg/dL Random Glucose (75-110) mg/dL Calcium (8.6-10.4) mg/dl Total Bilirubin (0.2-1.3) mg/dL AST (17-59) U/L ALT (21-72) U/L Alkaline Phosphatase (38-126) U/L Total Protein (6.3-8.3) g/dL Albumin (3.5-5.0) g/dL Globulin (2.2-3.9) gm/dL Albumin/Globulin Ratio (1.0-2.1) YENNY UFH Low Dose 0.1 0 0 % Release YENNY UFH Low Dose 0.5 0 0 % Release YENNY UFH High Dose 100 0 0 % Release Blood Type Antibody Screen Laboratory Results - last 24 hr 08/17/17 08/19/17 08/21/17 10:48 08:45 20:00 WBC RBC Hgb Hct MCV MCH MCHC RDW Plt Count MPV Neut % (Auto) Lymph % (Auto) [place] % (Auto) Eos % (Auto) Baso % (Auto) Neut # (Auto) Lymph # (Auto) [place] # (Auto) Eos # (Auto) Baso # (Auto) Sodium Potassium Chloride Carbon Dioxide Anion Gap BUN Creatinine Est GFR ( Amer) Est GFR (Non-Af Amer) POC Glucose (mg/dL) 102 Random Glucose Calcium Total Bilirubin AST ALT Alkaline Phosphatase Total Protein Albumin Globulin Albumin/Globulin Ratio YENNY UFH Low Dose 0.1 0 0 YENNY UFH Low Dose 0.5 0 0 YENNY UFH High Dose 100 0 0 Blood Type Antibody Screen 08/21/17 08/22/17 08/22/17 23:46 03:59 06:45 WBC RBC Hgb Hct MCV MCH MCHC RDW Plt Count MPV Neut % (Auto) Lymph % (Auto) [place] % (Auto) Eos % (Auto) Baso % (Auto) Neut # (Auto) Lymph # (Auto) [place] # (Auto) Eos # (Auto) Baso # (Auto) Sodium 132 Potassium 4.1 Chloride 99 Carbon Dioxide 28 Anion Gap 10 BUN 12 Creatinine 2.0 H Est GFR ( Amer) 41 Est GFR (Non-Af Amer) 34 POC Glucose (mg/dL) 102 109 Random Glucose 100 Calcium 8.1 L Total Bilirubin 0.6 AST 21 ALT 16 L Alkaline Phosphatase 162 H Total Protein 6.2 L Albumin 2.0 L Globulin 4.2 H Albumin/Globulin Ratio 0.5 L YENNY UFH Low Dose 0.1 YENNY UFH Low Dose 0.5 YENNY UFH High Dose 100 Blood Type Antibody Screen 08/22/17 08/22/17 08/22/17 06:45 09:03 11:26 WBC 3.9 L RBC 2.36 L Hgb 6.9 L Hct 20.8 L MCV 87.8 MCH 29.3 MCHC 33.4 RDW 20.4 H Plt Count 93 L MPV 10.1 Neut % (Auto) 54.6 Lymph % (Auto) 19.6 L [place] % (Auto) 14.4 H Eos % (Auto) 10.5 H Baso % (Auto) 0.9 Neut # (Auto) 2.1 Lymph # (Auto) 0.8 L [place] # (Auto) 0.6 Eos # (Auto) 0.4 Baso # (Auto) 0.0 Sodium Potassium Chloride Carbon Dioxide Anion Gap BUN Creatinine Est GFR ( Amer) Est GFR (Non-Af Amer) POC Glucose (mg/dL) 95 104 Random Glucose Calcium Total Bilirubin AST ALT Alkaline Phosphatase Total Protein Albumin Globulin Albumin/Globulin Ratio YENNY UFH Low Dose 0.1 YENNY UFH Low Dose 0.5 YENNY UFH High Dose 100 Blood Type Antibody Screen 08/22/17 08/22/17 12:33 16:04 WBC RBC Hgb Hct MCV MCH MCHC RDW Plt Count MPV Neut % (Auto) Lymph % (Auto) [place] % (Auto) Eos % (Auto) Baso % (Auto) Neut # (Auto) Lymph # (Auto) [place] # (Auto) Eos # (Auto) Baso # (Auto) Sodium Potassium Chloride Carbon Dioxide Anion Gap BUN Creatinine Est GFR ( Amer) Est GFR (Non-Af Amer) POC Glucose (mg/dL) 95 Random Glucose Calcium Total Bilirubin AST ALT Alkaline Phosphatase Total Protein Albumin Globulin Albumin/Globulin Ratio YENNY UFH Low Dose 0.1 YENNY UFH Low Dose 0.5 YENNY UFH High Dose 100 Blood Type B POSITIVE Antibody Screen Negative Critical Care Progress Note - Nutrition Nutrition: Nutrition Category Date Time Status NPO Diet [DIET] Diets 08/13/17 Breakfast Active NPO Diet [DIET] Diets 08/23/17 Breakfast Active Attending/Attestation - Attestation I have personally seen and examined this patient.: Yes I have fully participated in the care of the patient.: Yes I have reviewed all pertinent clinical information: Yes Notes (Text): 08/22/17 16:44 Patient seen and examined in the intensive care unit. Case discussed with house staff in the morning. Being treated for Acetobacter and Pseudomonas pneumonia Admitting for PEG placement On hemodialysis Transfuse packed RBCs Follow-up H&H
[2017-08-22] MEDS: Fluconazole IV 400mg/200ml NS 200 ML IVPB SCH (14:05)
--- NOTE | 2017-08-22 17:17 | CP.PCM.PN ---
Subjective - Date & Time of Evaluation Date of Evaluation: 08/22/17 Time of Evaluation: 17:17 Objective - Vital Signs/Intake and Output Vital Signs (last 24 hours): Temp Pulse Resp BP Pulse Ox 99.6 F 74 22 111/30 L 100 08/22/17 16:45 08/22/17 16:45 08/22/17 16:45 08/22/17 16:45 08/22/17 16:33 Intake and Output: 08/22/17 08/22/17 06:59 18:59 Intake Total 900 1190 Balance 900 1190 - Medications Medications: Current Medications Acetaminophen (Tylenol 120mg Supp) 120 mg DE Q6 PRN PRN Reason: Fever >100.4 F Last Admin: 08/19/17 22:53 Dose: 120 mg Aspirin (Aspirin Chewable) 81 mg PO DAILY [facility] Last Admin: 08/20/17 09:28 Dose: 81 mg Carvedilol (Coreg) 6.25 mg PO BID [facility] Last Admin: 08/22/17 10:03 Dose: 6.25 mg Clopidogrel Bisulfate (Plavix) 75 mg PO DAILY [facility] Last Admin: 08/20/17 09:10 Dose: 75 mg Docusate Sodium (Colace) 100 mg PO BID PRN PRN Reason: Constipation Famotidine (Pepcid) 20 mg IVP DAILY [facility] Last Admin: 08/22/17 10:55 Dose: 20 mg Meropenem 500 mg/ Sodium (Chloride) 100 mls @ 100 mls/hr IVPB Q12H [facility] Last Admin: 08/22/17 12:56 Dose: 100 mls/hr Fluconazole (Diflucan Iv 400mg/200ml Ns) 200 mls @ 100 mls/hr IVPB Q24H [facility] Last Admin: 08/22/17 14:05 Dose: 100 mls/hr Dextrose (Dextrose 10% In Water) 500 mls @ 30 mls/hr IV .[id number] [facility] Last Admin: 08/22/17 12:14 Dose: 30 mls/hr Amikacin Sulfate 750 mg/ (Sodium Chloride) 253 mls @ 250 mls/hr IVPB TTS [facility] Last Admin: 08/21/17 11:47 Dose: 250 mls/hr Vancomycin/Sodium Chloride (Vancomycin 1 Gm/Ns 200 Ml) 1 gm in 200 mls @ 133.333 mls/hr IVPB TTS [facility] Stop: 08/23/17 10:01 Last Admin: 08/21/17 12:54 Dose: 133.333 mls/hr Insulin Aspart (Novolog) 0 unit SC Q4H [facility] PRN Reason: Protocol Last Admin: 08/22/17 12:00 Dose: Not Given Rosuvastatin Calcium (Crestor) 2.5 mg PO HS [facility] Last Admin: 08/21/17 21:55 Dose: 2.5 mg Sucralfate (Carafate Oral Susp) 1 gm NG Q6H [facility] Last Admin: 08/22/17 15:01 Dose: 1 gm Vitamin A (Vitamin A & D Oint Ud Foilpak) 4 ea TOP BID [facility] Last Admin: 08/22/17 10:00 Dose: 4 ea - Labs Labs: 08/22/17 06:45 08/22/17 06:45 PT 14.6 SECONDS (9.7-12.2) H 08/20/17 14:40 INR 1.3 08/20/17 14:40 APTT 53 SECONDS (21-34) H 08/20/17 14:40
--- NOTE | 2017-08-22 18:41 | CP.PCM.PN ---
Subjective - Date & Time of Evaluation Date of Evaluation: 08/22/17 Time of Evaluation: 15:40 - Subjective Subjective: clinically same Objective - Vital Signs/Intake and Output Vital Signs (last 24 hours): Temp Pulse Resp BP Pulse Ox 99.3 F 69 21 108/30 L 100 08/22/17 17:30 08/22/17 17:30 08/22/17 17:30 08/22/17 17:30 08/22/17 16:33 Intake and Output: 08/22/17 08/22/17 06:59 18:59 Intake Total 900 1190 Balance 900 1190 - Medications Medications: Current Medications Acetaminophen (Tylenol 120mg Supp) 120 mg MD Q6 PRN PRN Reason: Fever >100.4 F Last Admin: 08/19/17 22:53 Dose: 120 mg Aspirin (Aspirin Chewable) 81 mg PO DAILY [facility] Last Admin: 08/20/17 09:28 Dose: 81 mg Carvedilol (Coreg) 6.25 mg PO BID [facility] Last Admin: 08/22/17 10:03 Dose: 6.25 mg Clopidogrel Bisulfate (Plavix) 75 mg PO DAILY [facility] Last Admin: 08/20/17 09:10 Dose: 75 mg Docusate Sodium (Colace) 100 mg PO BID PRN PRN Reason: Constipation Famotidine (Pepcid) 20 mg IVP DAILY [facility] Last Admin: 08/22/17 10:55 Dose: 20 mg Meropenem 500 mg/ Sodium (Chloride) 100 mls @ 100 mls/hr IVPB Q12H [facility] Last Admin: 08/22/17 12:56 Dose: 100 mls/hr Fluconazole (Diflucan Iv 400mg/200ml Ns) 200 mls @ 100 mls/hr IVPB Q24H [facility] Last Admin: 08/22/17 14:05 Dose: 100 mls/hr Dextrose (Dextrose 10% In Water) 500 mls @ 30 mls/hr IV .[id number] [facility] Last Admin: 08/22/17 12:14 Dose: 30 mls/hr Amikacin Sulfate 750 mg/ (Sodium Chloride) 253 mls @ 250 mls/hr IVPB TTS [facility] Last Admin: 08/21/17 11:47 Dose: 250 mls/hr Vancomycin/Sodium Chloride (Vancomycin 1 Gm/Ns 200 Ml) 1 gm in 200 mls @ 133.333 mls/hr IVPB TTS [facility] Stop: 08/23/17 10:01 Last Admin: 08/21/17 12:54 Dose: 133.333 mls/hr Insulin Aspart (Novolog) 0 unit SC Q4H [facility] PRN Reason: Protocol Last Admin: 08/22/17 12:00 Dose: Not Given Rosuvastatin Calcium (Crestor) 2.5 mg PO HS [facility] Last Admin: 08/21/17 21:55 Dose: 2.5 mg Sucralfate (Carafate Oral Susp) 1 gm NG Q6H [facility] Last Admin: 08/22/17 15:01 Dose: 1 gm Vitamin A (Vitamin A & D Oint Ud Foilpak) 4 ea TOP BID [facility] Last Admin: 08/22/17 10:00 Dose: 4 ea - Labs Labs: 08/22/17 06:45 08/22/17 06:45 PT 14.6 SECONDS (9.7-12.2) H 08/20/17 14:40 INR 1.3 08/20/17 14:40 APTT 53 SECONDS (21-34) H 08/20/17 14:40 - Constitutional Appears: Well - Head Exam Head Exam: ATRAUMATIC, NORMAL INSPECTION, NORMOCEPHALIC - Eye Exam Eye Exam: EOMI, Normal appearance, PERRL Pupil Exam: NORMAL ACCOMODATION, PERRL - ENT Exam ENT Exam: Mucous Membranes Moist, Normal Exam - Neck Exam Neck Exam: Full ROM, Normal Inspection. absent: Lymphadenopathy - Respiratory Exam Respiratory Exam: Decreased Breath Sounds - Cardiovascular Exam Cardiovascular Exam: REGULAR RHYTHM Additional comments: clinically same
[2017-08-22] MEDS: Rosuvastatin Calcium 2.5 mg Tab PO SCH (21:02)
[2017-08-23] MEDS: (Novolog) Insulin Aspart, Recombinant 100 u/ml 10 ml vial SC SCH ×5 (00:19→16:51)
[2017-08-23] MEDS: Meropenem 500 MG in Sodium Chloride 0.9% 100 ML IVPB SCH ×2 (01:15→13:16)
[2017-08-23] MEDS: Sucralfate 1 gm/10 ml Oral Susp UD NG SCH ×3 (02:15→14:42)
[2017-08-23 02:23] VITALS: RESP 22
[2017-08-23 06:25] LABS: EOS # 0.4 K/uL (0.0-0.7); EOS % 9.6 % (0.0-4.0); HEMOGLOBIN 7.7 g/dL (12.0-18.0); LYMPH % 24.2 % (20.0-40.0); MEAN CELL VOLUME 86.8 fL (80.0-94.0); MEAN CORPUSCULAR HGB CONC 33.4 g/dL (33.0-37.0); MEAN PLATELET VOLUME 10.1 fL (7.2-11.7); MONO # 0.6 K/uL (0.0-0.8); MONO % 14.4 % (0.0-10.0); NEUT % 50.8 % (50.0-75.0); RBC 2.67 Mil/uL (4.40-5.90); WHITE BLOOD COUNT 3.9 K/uL (4.8-10.8)
[2017-08-23 06:39] LABS: ALB/GLOB RATIO 0.5 (1.0-2.1); CALCIUM 8.2 mg/dl (8.6-10.4); MAGNESIUM 1.7 mg/dL (1.6-2.3)
[2017-08-23 07:02] LABS: PLT BASE COUNT 97 K/uL
[2017-08-23 07:03] LABS: FUNCTIONING PLTS 69 K/uL; PLT(ADP) 28 K/uL
[2017-08-23] MEDS: Vitamins A & D Oint UD Foilpak TOP SCH ×2 (10:11→17:41)
[2017-08-23 12:31] VITALS: TEMP 97.4
[2017-08-23] MEDS: Amikacin Sulfate 750 MG in Sodium Chloride 0.9% 250 ML IVPB SCH (13:15)
[2017-08-23] MEDS ORDERED: Etomidate 20 mg/10ml Inj IV ONE (13:59)
[2017-08-23] MEDS ORDERED: Propofol 10 mg/ml Inj (20 ML) ONE (14:01)
[2017-08-23] MEDS ORDERED: Sodium Chloride 0.9% 1,000 ML IV ONE (14:18)
[2017-08-23] MEDS ORDERED: Lactated Ringer's 1,000 ML IV ONE (14:18)
[2017-08-23] MEDS: Vancomycin 1 gm/NS 200 ml 1 GM/200 ML BAG IVPB SCH ×2 (14:59→15:02)
[2017-08-23] MEDS: Fluconazole IV 400mg/200ml NS 200 ML IVPB SCH (15:03)
--- NOTE | 2017-08-23 17:12 | CP.CCUPN ---
<Tomy Estevez - Last Filed: 08/23/17 18:20> CCU Subjective - Physician Review Events Since Last Encounter (Free Text): 08/23/17 17:11 Per nursing no events occurred overnight. Subjective (Free Text): 08/22/17 06:52 Patient seen and examined at bedside. Per nursing no acute events overnight. Critical Care Time Spent (in minutes): 40 CCU Objective - Vital Signs / Intake & Output Vital Signs (Last 4 hours): Vital Signs Pulse Resp BP Pulse Ox 08/23/17 16:11 68 22 97/31 L 100 08/23/17 16:00 68 22 100 08/23/17 15:56 68 22 94/34 L 100 08/23/17 15:41 68 22 104/26 L 100 08/23/17 15:26 69 22 108/38 L 100 08/23/17 15:11 68 22 128/14 L 100 08/23/17 15:00 68 22 100 08/23/17 14:56 67 22 108/18 L 100 08/23/17 14:41 66 22 115/30 L 100 08/23/17 14:39 67 22 111/28 L 100 08/23/17 14:36 67 22 115/26 L 100 08/23/17 14:34 67 22 115/28 L 100 08/23/17 14:30 68 22 99/27 L 100 08/23/17 14:27 68 14 94/34 L 98 08/23/17 14:24 67 22 114/32 L 100 08/23/17 14:21 68 22 137/34 L 100 08/23/17 14:20 69 22 116/24 L 100 08/23/17 14:19 68 22 122/47 L 100 08/23/17 14:18 68 17 112/13 L 100 08/23/17 14:16 72 14 101/36 L 100 08/23/17 14:13 67 22 122/18 L 100 08/23/17 14:00 66 22 109/34 L 100 Intake and Output (Last 8hrs): Intake & Output 08/23/17 08/23/17 08/23/17 06:59 14:59 22:59 Intake Total 360 560 400 Balance 360 560 400 Weight 174 lb Intake: Intake, IV Amount 310 560 400 Right Distal Port 250 200 Right PICC 310 310 200 Tube Feeding 50 Other: # Bowel Movements 1 0 - Physical Exam Head: Positive for: Atraumatic, Normocephalic Pupils: Positive for: PERRL Extroacular Muscles: Positive for: EOMI Conjunctiva: Positive for: Normal Mouth: Positive for: Moist Mucous Membranes Respiratory/Chest: Positive for: Clear to Auscultation, Good Air Exchange. Negative for: Accessory Muscle Use Cardiovascular: Positive for: Normal S1, S2, Rub Abdomen: Positive for: Normal Bowel Sounds. Negative for: Peritoneal Signs Upper Extremity: Positive for: Normal Inspection. Negative for: Cyanosis, Edema Lower Extremity: Positive for: Normal Inspection. Negative for: Edema - Medications Active Medications: Active Medications Generic Name Dose Route Start Last Admin Trade Name Freq PRN Reason Stop Dose Admin Acetaminophen 120 mg 08/14/17 04:10 08/19/17 22:53 Tylenol 120mg Supp NJ 120 mg Q6 PRN Administration Fever >100.4 F Aspirin 81 mg 08/11/17 10:00 08/20/17 09:28 Aspirin Chewable PO 81 mg DAILY BAYLEE Administration Carvedilol 6.25 mg 08/11/17 10:00 08/23/17 10:09 Coreg PO Not Given BID B[facility]LEE Clopidogrel Bisulfate 75 mg 08/11/17 10:00 08/20/17 09:10 Plavix PO 75 mg DAILY B[facility]LEE Administration Docusate Sodium 100 mg 08/10/17 20:10 Colace PO BID PRN Constipation Famotidine 20 mg 08/11/17 10:00 08/23/17 13:17 Pepcid IVP 20 mg DAILY B[facility]LEE Administration Meropenem 500 mg/ Sodium 100 mls @ 100 mls/hr 08/15/17 13:15 08/23/17 13:16 Chloride IVPB 100 mls/hr Q12H B[facility]E Administration Fluconazole 200 mls @ 100 mls/hr 08/15/17 14:00 08/23/17 15:03 Diflucan Iv 400mg/200ml Ns IVPB 100 mls/hr Q24H B[facility]LEE Administration Amikacin Sulfate 750 mg/ 253 mls @ 250 mls/hr 08/18/17 10:00 08/23/17 13:15 Sodium Chloride IVPB 250 mls/hr TTS BAYLEE Administration Insulin Aspart 0 unit 08/21/17 12:00 08/23/17 16:51 Novolog SC Not Given Q4H B[facility]E Protocol Rosuvastatin Calcium 2.5 mg 08/11/17 22:00 08/22/17 21:02 Crestor PO 2.5 mg HS BAYLEE Administration Sucralfate 1 gm 08/10/17 20:15 08/23/17 14:42 Carafate Oral Susp NG Not Given Q6H B[facility]E Vitamin A 4 ea 08/13/17 18:00 08/23/17 10:11 Vitamin A & D Oint Ud Foilpak TOP 4 ea BID B[facility]LEE Administration - Patient Studies Lab Studies: Lab Studies 08/23/17 08/23/17 08/23/17 Range/Units 16:17 11:43 08:11 WBC (4.8-10.8) K/uL RBC (4.40-5.90) Mil/uL Hgb (12.0-18.0) g/dL Hct (35.0-51.0) % MCV (80.0-94.0) fL MCH (27.0-31.0) pg MCHC (33.0-37.0) g/dL RDW (11.5-14.5) % Plt Count (130-400) K/uL MPV (7.2-11.7) fL Neut % (Auto) (50.0-75.0) % Lymph % (Auto) (20.0-40.0) % [place] % (Auto) (0.0-10.0) % Eos % (Auto) (0.0-4.0) % Baso % (Auto) (0.0-2.0) % Neut # (Auto) (1.8-7.0) K/uL Lymph # (Auto) (1.0-4.3) K/uL [place] # (Auto) (0.0-0.8) K/uL Eos # (Auto) (0.0-0.7) K/uL Baso # (Auto) (0.0-0.2) K/uL Plt Function Assay K/uL Sodium (132-148) mmol/L Potassium (3.6-5.2) mmol/L Chloride (98-107) mmol/L Carbon Dioxide (22-30) mmol/L Anion Gap (10-20) BUN (9-20) mg/dL Creatinine (0.8-1.5) mg/dL Est GFR ( Amer) Est GFR (Non-Af Amer) POC Glucose (mg/dL) 88 75 86 (65-110) mg/dL Random Glucose (75-110) mg/dL Calcium (8.6-10.4) mg/dl Phosphorus (2.5-4.5) mg/dL Magnesium (1.6-2.3) mg/dL Total Bilirubin (0.2-1.3) mg/dL AST (17-59) U/L ALT (21-72) U/L Alkaline Phosphatase (38-126) U/L Total Protein (6.3-8.3) g/dL Albumin (3.5-5.0) g/dL Globulin (2.2-3.9) gm/dL Albumin/Globulin Ratio (1.0-2.1) 08/23/17 08/23/17 08/23/17 Range/Units 06:49 06:18 06:17 WBC 3.9 L (4.8-10.8) K/uL RBC 2.67 L (4.40-5.90) Mil/uL Hgb 7.7 L (12.0-18.0) g/dL Hct 23.1 L (35.0-51.0) % MCV 86.8 (80.0-94.0) fL MCH 29.0 (27.0-31.0) pg MCHC 33.4 (33.0-37.0) g/dL RDW 20.0 H (11.5-14.5) % Plt Count 102 L (130-400) K/uL MPV 10.1 (7.2-11.7) fL Neut % (Auto) 50.8 (50.0-75.0) % Lymph % (Auto) 24.2 (20.0-40.0) % [place] % (Auto) 14.4 H (0.0-10.0) % Eos % (Auto) 9.6 H (0.0-4.0) % Baso % (Auto) 1.0 (0.0-2.0) % Neut # (Auto) 2.0 (1.8-7.0) K/uL Lymph # (Auto) 1.0 (1.0-4.3) K/uL [place] # (Auto) 0.6 (0.0-0.8) K/uL Eos # (Auto) 0.4 (0.0-0.7) K/uL Baso # (Auto) 0.0 (0.0-0.2) K/uL Plt Function Assay 69 K/uL Sodium 129 L (132-148) mmol/L Potassium 4.2 (3.6-5.2) mmol/L Chloride 100 (98-107) mmol/L Carbon Dioxide 25 (22-30) mmol/L Anion Gap 8 L (10-20) BUN 16 (9-20) mg/dL Creatinine 2.6 H (0.8-1.5) mg/dL Est GFR ( Amer) 31 Est GFR (Non-Af Amer) 25 POC Glucose (mg/dL) (65-110) mg/dL Random Glucose 80 (75-110) mg/dL Calcium 8.2 L (8.6-10.4) mg/dl Phosphorus 2.9 (2.5-4.5) mg/dL Magnesium 1.7 (1.6-2.3) mg/dL Total Bilirubin 0.5 (0.2-1.3) mg/dL AST 21 (17-59) U/L ALT 15 L (21-72) U/L Alkaline Phosphatase 170 H (38-126) U/L Total Protein 6.2 L (6.3-8.3) g/dL Albumin 2.0 L (3.5-5.0) g/dL Globulin 4.2 H (2.2-3.9) gm/dL Albumin/Globulin Ratio 0.5 L (1.0-2.1) 08/23/17 08/22/17 08/22/17 Range/Units 04:38 23:41 19:55 WBC (4.8-10.8) K/uL RBC (4.40-5.90) Mil/uL Hgb (12.0-18.0) g/dL Hct (35.0-51.0) % MCV (80.0-94.0) fL MCH (27.0-31.0) pg MCHC (33.0-37.0) g/dL RDW (11.5-14.5) % Plt Count (130-400) K/uL MPV (7.2-11.7) fL Neut % (Auto) (50.0-75.0) % Lymph % (Auto) (20.0-40.0) % [place] % (Auto) (0.0-10.0) % Eos % (Auto) (0.0-4.0) % Baso % (Auto) (0.0-2.0) % Neut # (Auto) (1.8-7.0) K/uL Lymph # (Auto) (1.0-4.3) K/uL [place] # (Auto) (0.0-0.8) K/uL Eos # (Auto) (0.0-0.7) K/uL Baso # (Auto) (0.0-0.2) K/uL Plt Function Assay K/uL Sodium (132-148) mmol/L Potassium (3.6-5.2) mmol/L Chloride (98-107) mmol/L Carbon Dioxide (22-30) mmol/L Anion Gap (10-20) BUN (9-20) mg/dL Creatinine (0.8-1.5) mg/dL Est GFR ( Amer) Est GFR (Non-Af Amer) POC Glucose (mg/dL) 90 106 90 (65-110) mg/dL Random Glucose (75-110) mg/dL Calcium (8.6-10.4) mg/dl Phosphorus (2.5-4.5) mg/dL Magnesium (1.6-2.3) mg/dL Total Bilirubin (0.2-1.3) mg/dL AST (17-59) U/L ALT (21-72) U/L Alkaline Phosphatase (38-126) U/L Total Protein (6.3-8.3) g/dL Albumin (3.5-5.0) g/dL Globulin (2.2-3.9) gm/dL Albumin/Globulin Ratio (1.0-2.1) Laboratory Results - last 24 hr 08/22/17 08/22/17 08/23/17 19:55 23:41 04:38 WBC RBC Hgb Hct MCV MCH MCHC RDW Plt Count MPV Neut % (Auto) Lymph % (Auto) [place] % (Auto) Eos % (Auto) Baso % (Auto) Neut # (Auto) Lymph # (Auto) [place] # (Auto) Eos # (Auto) Baso # (Auto) Plt Function Assay Sodium Potassium Chloride Carbon Dioxide Anion Gap BUN Creatinine Est GFR ( Amer) Est GFR (Non-Af Amer) POC Glucose (mg/dL) 90 106 90 Random Glucose Calcium Phosphorus Magnesium Total Bilirubin AST ALT Alkaline Phosphatase Total Protein Albumin Globulin Albumin/Globulin Ratio 08/23/17 08/23/17 08/23/17 06:17 06:18 06:49 WBC 3.9 L RBC 2.67 L Hgb 7.7 L Hct 23.1 L MCV 86.8 MCH 29.0 MCHC 33.4 RDW 20.0 H Plt Count 102 L MPV 10.1 Neut % (Auto) 50.8 Lymph % (Auto) 24.2 [place] % (Auto) 14.4 H Eos % (Auto) 9.6 H Baso % (Auto) 1.0 Neut # (Auto) 2.0 Lymph # (Auto) 1.0 [place] # (Auto) 0.6 Eos # (Auto) 0.4 Baso # (Auto) 0.0 Plt Function Assay 69 Sodium 129 L Potassium 4.2 Chloride 100 Carbon Dioxide 25 Anion Gap 8 L BUN 16 Creatinine 2.6 H Est GFR ( Amer) 31 Est GFR (Non-Af Amer) 25 POC Glucose (mg/dL) Random Glucose 80 Calcium 8.2 L Phosphorus 2.9 Magnesium 1.7 Total Bilirubin 0.5 AST 21 ALT 15 L Alkaline Phosphatase 170 H Total Protein 6.2 L Albumin 2.0 L Globulin 4.2 H Albumin/Globulin Ratio 0.5 L 08/23/17 08/23/17 08/23/17 08:11 11:43 16:17 WBC RBC Hgb Hct MCV MCH MCHC RDW Plt Count MPV Neut % (Auto) Lymph % (Auto) [place] % (Auto) Eos % (Auto) Baso % (Auto) Neut # (Auto) Lymph # (Auto) [place] # (Auto) Eos # (Auto) Baso # (Auto) Plt Function Assay Sodium Potassium Chloride Carbon Dioxide Anion Gap BUN Creatinine Est GFR ( Amer) Est GFR (Non-Af Amer) POC Glucose (mg/dL) 86 75 88 Random Glucose Calcium Phosphorus Magnesium Total Bilirubin AST ALT Alkaline Phosphatase Total Protein Albumin Globulin Albumin/Globulin Ratio Fingerstick Blood Sugar Results: 88 Review of Systems - Review of Systems Systems not reviewed;Unavailable: Acuity of Condition Critical Care Progress Note - Nutrition Nutrition: Nutrition Category Date Time Status NPO Diet [DIET] Diets 08/23/17 Breakfast Active Assessment/Plan - Assessment and Plan (Free Text) Assessment: 62 year old male with a past medical history of esrd, cad (s/p 2 stents), hypothyroid, chf, htn, copd, and dm s/p trach and peg placment. Plan: Psych: no active problems Cardio: hx of CAD, HTN ASA 81mg QD Coreg 6.25 PO BID Plavix 75mg PO QD Rosuvastatin 2.5mg PO QHS (Gadhvi) echo 08/10/17 - normal LVEF, mild-mod PULM HTN, normal wall motion Pulm: hx of Respiratory failure s/p intubation, COPD, hypoxemia Psuedomonas + trach culture n 08/10/17 Tracheostomy (08/15/17) Aspiration s/p trach - MDRO Gram neg rods, Actinobacter + trach culture 08/17/17 vancomycin/mena/diflucan GI: Chronic Dysphagia ([place]) G tube placed today. Will f/u with GI for further Rec's. Sucrafalfate Nephro tube feeds at 20cc/hr Renal: ESRD ([place]) HD: T, Th, Sat Endo: IDDM, hypothyroidism, hypoglycemia ISS D10 30cc/hr ID: Septic Shock 2/2 aspiration ([place]) Aspiration s/p trach - MDRO Gram neg rods + trach culture 08/17/17 vanc/diflucan/Amikacin Heme/Onc: Anemia transfuse another 1 unit PRBC blood culture neg PPx: Pepcid 20 IVP QD Heparin 5,000 units SC QD full code <[email or web address] M - Last Filed: 08/23/17 18:36> CCU Objective - Vital Signs / Intake & Output Vital Signs (Last 4 hours): Vital Signs Pulse Resp BP Pulse Ox 08/23/17 18:00 68 22 100 08/23/17 17:59 68 22 121/25 L 100 08/23/17 17:00 69 22 100 08/23/17 16:59 69 22 109/29 L 100 08/23/17 16:56 69 22 100 08/23/17 16:42 73 11 L 102/51 L 100 08/23/17 16:26 67 22 109/20 L 100 08/23/17 16:11 68 22 97/31 L 100 08/23/17 16:00 68 22 100 08/23/17 15:56 68 22 94/34 L 100 08/23/17 15:41 68 22 104/26 L 100 08/23/17 15:26 69 22 108/38 L 100 08/23/17 15:11 68 22 128/14 L 100 08/23/17 15:00 68 22 100 08/23/17 14:56 67 22 108/18 L 100 08/23/17 14:41 66 22 115/30 L 100 08/23/17 14:39 67 22 111/28 L 100 Intake and Output (Last 8hrs): Intake & Output 08/23/17 08/23/17 08/23/17 06:59 14:59 22:59 Intake Total 360 560 430 Balance 360 560 430 Weight 174 lb Intake: Intake, IV Amount 310 560 430 Right Distal Port 250 200 Right PICC 310 310 230 Tube Feeding 50 Other: # Bowel Movements 1 0 1 - Medications Active Medications: Active Medications Generic Name Dose Route Start Last Admin Trade Name Freq PRN Reason Stop Dose Admin Acetaminophen 120 mg 08/14/17 04:10 08/19/17 22:53 Tylenol 120mg Supp NJ 120 mg Q6 PRN Administration Fever >100.4 F Aspirin 81 mg 08/11/17 10:00 08/20/17 09:28 Aspirin Chewable PO 81 mg DAILY BAYLEE Administration Carvedilol 6.25 mg 08/11/17 10:00 08/23/17 17:42 Coreg PO Not Given BID [facility] Clopidogrel Bisulfate 75 mg 08/11/17 10:00 08/20/17 09:10 Plavix PO 75 mg DAILY BAYLEE Administration Docusate Sodium 100 mg 08/10/17 20:10 Colace PO BID PRN Constipation Famotidine 20 mg 08/11/17 10:00 08/23/17 13:17 Pepcid IVP 20 mg DAILY B[facility]LEE Administration Meropenem 500 mg/ Sodium 100 mls @ 100 mls/hr 08/15/17 13:15 08/23/17 13:16 Chloride IVPB 100 mls/hr Q12H B[facility]E Administration Fluconazole 200 mls @ 100 mls/hr 08/15/17 14:00 08/23/17 15:03 Diflucan Iv 400mg/200ml Ns IVPB 100 mls/hr Q24H B[facility]LEE Administration Amikacin Sulfate 750 mg/ 253 mls @ 250 mls/hr 08/18/17 10:00 08/23/17 13:15 Sodium Chloride IVPB 250 mls/hr TTS BAYLEE Administration Insulin Aspart 0 unit 08/21/17 12:00 08/23/17 16:51 Novolog SC Not Given Q4H [facility]E Protocol Rosuvastatin Calcium 2.5 mg 08/11/17 22:00 08/22/17 21:02 Crestor PO 2.5 mg HS BAYLEE Administration Sucralfate 1 gm 08/10/17 20:15 08/23/17 14:42 Carafate Oral Susp NG Not Given Q6H [facility]E Vitamin A 4 ea 08/13/17 18:00 08/23/17 17:41 Vitamin A & D Oint Ud Foilpak TOP 4 ea BID BAYLEE Administration - Patient Studies Lab Studies: Lab Studies 08/23/17 08/23/17 08/23/17 Range/Units 16:17 11:43 08:11 WBC (4.8-10.8) K/uL RBC (4.40-5.90) Mil/uL Hgb (12.0-18.0) g/dL Hct (35.0-51.0) % MCV (80.0-94.0) fL MCH (27.0-31.0) pg MCHC (33.0-37.0) g/dL RDW (11.5-14.5) % Plt Count (130-400) K/uL MPV (7.2-11.7) fL Neut % (Auto) (50.0-75.0) % Lymph % (Auto) (20.0-40.0) % [place] % (Auto) (0.0-10.0) % Eos % (Auto) (0.0-4.0) % Baso % (Auto) (0.0-2.0) % Neut # (Auto) (1.8-7.0) K/uL Lymph # (Auto) (1.0-4.3) K/uL [place] # (Auto) (0.0-0.8) K/uL Eos # (Auto) (0.0-0.7) K/uL Baso # (Auto) (0.0-0.2) K/uL Plt Function Assay K/uL Sodium (132-148) mmol/L Potassium (3.6-5.2) mmol/L Chloride (98-107) mmol/L Carbon Dioxide (22-30) mmol/L Anion Gap (10-20) BUN (9-20) mg/dL Creatinine (0.8-1.5) mg/dL Est GFR ( Amer) Est GFR (Non-Af Amer) POC Glucose (mg/dL) 88 75 86 (65-110) mg/dL Random Glucose (75-110) mg/dL Calcium (8.6-10.4) mg/dl Phosphorus (2.5-4.5) mg/dL Magnesium (1.6-2.3) mg/dL Total Bilirubin (0.2-1.3) mg/dL AST (17-59) U/L ALT (21-72) U/L Alkaline Phosphatase (38-126) U/L Total Protein (6.3-8.3) g/dL Albumin (3.5-5.0) g/dL Globulin (2.2-3.9) gm/dL Albumin/Globulin Ratio (1.0-2.1) 08/23/17 08/23/17 08/23/17 Range/Units 06:49 06:18 06:17 WBC 3.9 L (4.8-10.8) K/uL RBC 2.67 L (4.40-5.90) Mil/uL Hgb 7.7 L (12.0-18.0) g/dL Hct 23.1 L (35.0-51.0) % MCV 86.8 (80.0-94.0) fL MCH 29.0 (27.0-31.0) pg MCHC 33.4 (33.0-37.0) g/dL RDW 20.0 H (11.5-14.5) % Plt Count 102 L (130-400) K/uL MPV 10.1 (7.2-11.7) fL Neut % (Auto) 50.8 (50.0-75.0) % Lymph % (Auto) 24.2 (20.0-40.0) % [place] % (Auto) 14.4 H (0.0-10.0) % Eos % (Auto) 9.6 H (0.0-4.0) % Baso % (Auto) 1.0 (0.0-2.0) % Neut # (Auto) 2.0 (1.8-7.0) K/uL Lymph # (Auto) 1.0 (1.0-4.3) K/uL [place] # (Auto) 0.6 (0.0-0.8) K/uL Eos # (Auto) 0.4 (0.0-0.7) K/uL Baso # (Auto) 0.0 (0.0-0.2) K/uL Plt Function Assay 69 K/uL Sodium 129 L (132-148) mmol/L Potassium 4.2 (3.6-5.2) mmol/L Chloride 100 (98-107) mmol/L Carbon Dioxide 25 (22-30) mmol/L Anion Gap 8 L (10-20) BUN 16 (9-20) mg/dL Creatinine 2.6 H (0.8-1.5) mg/dL Est GFR ( Amer) 31 Est GFR (Non-Af Amer) 25 POC Glucose (mg/dL) (65-110) mg/dL Random Glucose 80 (75-110) mg/dL Calcium 8.2 L (8.6-10.4) mg/dl Phosphorus 2.9 (2.5-4.5) mg/dL Magnesium 1.7 (1.6-2.3) mg/dL Total Bilirubin 0.5 (0.2-1.3) mg/dL AST 21 (17-59) U/L ALT 15 L (21-72) U/L Alkaline Phosphatase 170 H (38-126) U/L Total Protein 6.2 L (6.3-8.3) g/dL Albumin 2.0 L (3.5-5.0) g/dL Globulin 4.2 H (2.2-3.9) gm/dL Albumin/Globulin Ratio 0.5 L (1.0-2.1) 08/23/17 08/22/17 08/22/17 Range/Units 04:38 23:41 19:55 WBC (4.8-10.8) K/uL RBC (4.40-5.90) Mil/uL Hgb (12.0-18.0) g/dL Hct (35.0-51.0) % MCV (80.0-94.0) fL MCH (27.0-31.0) pg MCHC (33.0-37.0) g/dL RDW (11.5-14.5) % Plt Count (130-400) K/uL MPV (7.2-11.7) fL Neut % (Auto) (50.0-75.0) % Lymph % (Auto) (20.0-40.0) % [place] % (Auto) (0.0-10.0) % Eos % (Auto) (0.0-4.0) % Baso % (Auto) (0.0-2.0) % Neut # (Auto) (1.8-7.0) K/uL Lymph # (Auto) (1.0-4.3) K/uL [place] # (Auto) (0.0-0.8) K/uL Eos # (Auto) (0.0-0.7) K/uL Baso # (Auto) (0.0-0.2) K/uL Plt Function Assay K/uL Sodium (132-148) mmol/L Potassium (3.6-5.2) mmol/L Chloride (98-107) mmol/L Carbon Dioxide (22-30) mmol/L Anion Gap (10-20) BUN (9-20) mg/dL Creatinine (0.8-1.5) mg/dL Est GFR ( Amer) Est GFR (Non-Af Amer) POC Glucose (mg/dL) 90 106 90 (65-110) mg/dL Random Glucose (75-110) mg/dL Calcium (8.6-10.4) mg/dl Phosphorus (2.5-4.5) mg/dL Magnesium (1.6-2.3) mg/dL Total Bilirubin (0.2-1.3) mg/dL AST (17-59) U/L ALT (21-72) U/L Alkaline Phosphatase (38-126) U/L Total Protein (6.3-8.3) g/dL Albumin (3.5-5.0) g/dL Globulin (2.2-3.9) gm/dL Albumin/Globulin Ratio (1.0-2.1) Laboratory Results - last 24 hr 08/22/17 08/22/17 08/23/17 19:55 23:41 04:38 WBC RBC Hgb Hct MCV MCH MCHC RDW Plt Count MPV Neut % (Auto) Lymph % (Auto) [place] % (Auto) Eos % (Auto) Baso % (Auto) Neut # (Auto) Lymph # (Auto) [place] # (Auto) Eos # (Auto) Baso # (Auto) Plt Function Assay Sodium Potassium Chloride Carbon Dioxide Anion Gap BUN Creatinine Est GFR ( Amer) Est GFR (Non-Af Amer) POC Glucose (mg/dL) 90 106 90 Random Glucose Calcium Phosphorus Magnesium Total Bilirubin AST ALT Alkaline Phosphatase Total Protein Albumin Globulin Albumin/Globulin Ratio 08/23/17 08/23/17 08/23/17 06:17 06:18 06:49 WBC 3.9 L RBC 2.67 L Hgb 7.7 L Hct 23.1 L MCV 86.8 MCH 29.0 MCHC 33.4 RDW 20.0 H Plt Count 102 L MPV 10.1 Neut % (Auto) 50.8 Lymph % (Auto) 24.2 [place] % (Auto) 14.4 H Eos % (Auto) 9.6 H Baso % (Auto) 1.0 Neut # (Auto) 2.0 Lymph # (Auto) 1.0 [place] # (Auto) 0.6 Eos # (Auto) 0.4 Baso # (Auto) 0.0 Plt Function Assay 69 Sodium 129 L Potassium 4.2 Chloride 100 Carbon Dioxide 25 Anion Gap 8 L BUN 16 Creatinine 2.6 H Est GFR ( Amer) 31 Est GFR (Non-Af Amer) 25 POC Glucose (mg/dL) Random Glucose 80 Calcium 8.2 L Phosphorus 2.9 Magnesium 1.7 Total Bilirubin 0.5 AST 21 ALT 15 L Alkaline Phosphatase 170 H Total Protein 6.2 L Albumin 2.0 L Globulin 4.2 H Albumin/Globulin Ratio 0.5 L 08/23/17 08/23/17 08/23/17 08:11 11:43 16:17 WBC RBC Hgb Hct MCV MCH MCHC RDW Plt Count MPV Neut % (Auto) Lymph % (Auto) [place] % (Auto) Eos % (Auto) Baso % (Auto) Neut # (Auto) Lymph # (Auto) [place] # (Auto) Eos # (Auto) Baso # (Auto) Plt Function Assay Sodium Potassium Chloride Carbon Dioxide Anion Gap BUN Creatinine Est GFR ( Amer) Est GFR (Non-Af Amer) POC Glucose (mg/dL) 86 75 88 Random Glucose Calcium Phosphorus Magnesium Total Bilirubin AST ALT Alkaline Phosphatase Total Protein Albumin Globulin Albumin/Globulin Ratio Critical Care Progress Note - Nutrition Nutrition: Nutrition Category Date Time Status NPO Diet [DIET] Diets 08/23/17 Breakfast Active Attending/Attestation - Attestation I have personally seen and examined this patient.: Yes I have fully participated in the care of the patient.: Yes I have reviewed all pertinent clinical information: Yes Notes (Text): 08/23/17 18:36 Today: August The Patient was seen and examined at the bedside, Medical records reviewed, and management issues were discussed and formulated with the house staff. I have reviewed all the relevant clinical, laboratory, hemodynamic, radiographic data and medications Events reviewed Pain issues, skin care, head of the bed elevation, glycemic control were addressed. Agree with above resident's assessment and treatment plans of care as transcribed in Dr. Estevez note.
--- NOTE | 2017-08-23 17:48 | CP.PCM.PN ---
Subjective - Date & Time of Evaluation Date of Evaluation: 08/23/17 Time of Evaluation: 17:48 Objective - Vital Signs/Intake and Output Vital Signs (last 24 hours): Temp Pulse Resp BP Pulse Ox 97.4 F L 69 22 109/29 L 100 08/23/17 12:30 08/23/17 17:00 08/23/17 17:00 08/23/17 16:59 08/23/17 17:00 Intake and Output: 08/23/17 08/23/17 06:59 18:59 Intake Total 680 990 Balance 680 990 - Medications Medications: Current Medications Acetaminophen (Tylenol 120mg Supp) 120 mg SC Q6 PRN PRN Reason: Fever >100.4 F Last Admin: 08/19/17 22:53 Dose: 120 mg Aspirin (Aspirin Chewable) 81 mg PO DAILY [facility] Last Admin: 08/20/17 09:28 Dose: 81 mg Carvedilol (Coreg) 6.25 mg PO BID [facility] Last Admin: 08/23/17 17:42 Dose: Not Given Clopidogrel Bisulfate (Plavix) 75 mg PO DAILY [facility] Last Admin: 08/20/17 09:10 Dose: 75 mg Docusate Sodium (Colace) 100 mg PO BID PRN PRN Reason: Constipation Famotidine (Pepcid) 20 mg IVP DAILY [facility] Last Admin: 08/23/17 13:17 Dose: 20 mg Meropenem 500 mg/ Sodium (Chloride) 100 mls @ 100 mls/hr IVPB Q12H [facility] Last Admin: 08/23/17 13:16 Dose: 100 mls/hr Fluconazole (Diflucan Iv 400mg/200ml Ns) 200 mls @ 100 mls/hr IVPB Q24H [facility] Last Admin: 08/23/17 15:03 Dose: 100 mls/hr Amikacin Sulfate 750 mg/ (Sodium Chloride) 253 mls @ 250 mls/hr IVPB TTS [facility] Last Admin: 08/23/17 13:15 Dose: 250 mls/hr Insulin Aspart (Novolog) 0 unit SC Q4H [facility] PRN Reason: Protocol Last Admin: 08/23/17 16:51 Dose: Not Given Rosuvastatin Calcium (Crestor) 2.5 mg PO HS [facility] Last Admin: 08/22/17 21:02 Dose: 2.5 mg Sucralfate (Carafate Oral Susp) 1 gm NG Q6H [facility] Last Admin: 08/23/17 14:42 Dose: Not Given Vitamin A (Vitamin A & D Oint Ud Foilpak) 4 ea TOP BID [facility] Last Admin: 08/23/17 17:41 Dose: 4 ea - Labs Labs: 08/23/17 06:18 08/23/17 06:17 PT 14.6 SECONDS (9.7-12.2) H 08/20/17 14:40 INR 1.3 08/20/17 14:40 APTT 53 SECONDS (21-34) H 08/20/17 14:40
[2017-08-23 18:06] VITALS: BP 121/25; PULSE 68
--- NOTE | 2017-08-23 18:25 | CP.PCM.PN ---
Subjective - Date & Time of Evaluation Date of Evaluation: 08/23/17 Time of Evaluation: 08:00 - Subjective Subjective: IV rx in progress rx in progress for Pseudomonas and acinetobacter sputum poor prognosis Objective - Vital Signs/Intake and Output Vital Signs (last 24 hours): Temp Pulse Resp BP Pulse Ox 97.4 F L 68 22 121/25 L 100 08/23/17 12:30 08/23/17 18:00 08/23/17 18:00 08/23/17 17:59 08/23/17 18:00 Intake and Output: 08/23/17 08/23/17 06:59 18:59 Intake Total 680 990 Balance 680 990 - Medications Medications: Current Medications Acetaminophen (Tylenol 120mg Supp) 120 mg VA Q6 PRN PRN Reason: Fever >100.4 F Last Admin: 08/19/17 22:53 Dose: 120 mg Aspirin (Aspirin Chewable) 81 mg PO DAILY [facility] Last Admin: 08/20/17 09:28 Dose: 81 mg Carvedilol (Coreg) 6.25 mg PO BID [facility] Last Admin: 08/23/17 17:42 Dose: Not Given Clopidogrel Bisulfate (Plavix) 75 mg PO DAILY [facility] Last Admin: 08/20/17 09:10 Dose: 75 mg Docusate Sodium (Colace) 100 mg PO BID PRN PRN Reason: Constipation Famotidine (Pepcid) 20 mg IVP DAILY [facility] Last Admin: 08/23/17 13:17 Dose: 20 mg Meropenem 500 mg/ Sodium (Chloride) 100 mls @ 100 mls/hr IVPB Q12H [facility] Last Admin: 08/23/17 13:16 Dose: 100 mls/hr Fluconazole (Diflucan Iv 400mg/200ml Ns) 200 mls @ 100 mls/hr IVPB Q24H [facility] Last Admin: 08/23/17 15:03 Dose: 100 mls/hr Amikacin Sulfate 750 mg/ (Sodium Chloride) 253 mls @ 250 mls/hr IVPB TTS [facility] Last Admin: 08/23/17 13:15 Dose: 250 mls/hr Insulin Aspart (Novolog) 0 unit SC Q4H [facility] PRN Reason: Protocol Last Admin: 08/23/17 16:51 Dose: Not Given Rosuvastatin Calcium (Crestor) 2.5 mg PO HS [facility] Last Admin: 08/22/17 21:02 Dose: 2.5 mg Sucralfate (Carafate Oral Susp) 1 gm NG Q6H [facility] Last Admin: 08/23/17 14:42 Dose: Not Given Vitamin A (Vitamin A & D Oint Ud Foilpak) 4 ea TOP BID [facility] Last Admin: 08/23/17 17:41 Dose: 4 ea - Labs Labs: 08/23/17 06:18 08/23/17 06:17 PT 14.6 SECONDS (9.7-12.2) H 08/20/17 14:40 INR 1.3 08/20/17 14:40 APTT 53 SECONDS (21-34) H 08/20/17 14:40 - Constitutional Appears: Confused, Cachectic - Head Exam Head Exam: NORMOCEPHALIC - Eye Exam Eye Exam: absent: Scleral icterus - ENT Exam ENT Exam: Mucous Membranes Dry - Neck Exam Neck Exam: absent: Lymphadenopathy - Respiratory Exam Respiratory Exam: Decreased Breath Sounds - Cardiovascular Exam Cardiovascular Exam: REGULAR RHYTHM - GI/Abdominal Exam GI & Abdominal Exam: Distended, Soft - Rectal Exam Rectal Exam: Deferred - Exam Exam: NORMAL INSPECTION Assessment and Plan (1) Altered mental status Status: Acute (2) COPD (chronic obstructive pulmonary disease) Status: Acute (3) Chronic congestive heart failure Status: Acute (4) Congestive heart failure (CHF) Status: Acute (5) Fever Status: Acute (6) Pneumonia Status: Acute (7) ESRD (end stage renal disease) on dialysis Status: Chronic (8) Hypertension Status: Chronic
== END 2017-08-23 18:35 | DRG 4 ==
LOC: C.9I 19:07
PROVIDERS: ADMIT Internal Medicine Nephrology; ATTEND Internal Medicine Nephrology
PROC: 5A1955Z Respiratory Ventilation, Greater than 96 Consecutive Hours (ICD-10-PCS; 2017-08-10)
PROC: 0BH17EZ Insertion of Endotracheal Airway into Trachea, Via Natural or Artificial Opening (ICD-10-PCS; 2017-08-10)
PROC: 5A1D70Z Performance of Urinary Filtration, Intermittent, Less than 6 Hours Per Day (ICD-10-PCS; 2017-08-11)
PROC: 02HV33Z Insertion of Infusion Device into Superior Vena Cava, Percutaneous Approach (ICD-10-PCS; 2017-08-14)
PROC: 5A1D70Z Performance of Urinary Filtration, Intermittent, Less than 6 Hours Per Day (ICD-10-PCS; 2017-08-14)
PROC: 0B113F4 Bypass Trachea to Cutaneous with Tracheostomy Device, Percutaneous Approach (ICD-10-PCS; principal; 2017-08-14 15:00)
PROC: 5A1D70Z Performance of Urinary Filtration, Intermittent, Less than 6 Hours Per Day (ICD-10-PCS; 2017-08-16)
PROC: 5A1D70Z Performance of Urinary Filtration, Intermittent, Less than 6 Hours Per Day (ICD-10-PCS; 2017-08-18)
PROC: 5A1D70Z Performance of Urinary Filtration, Intermittent, Less than 6 Hours Per Day (ICD-10-PCS; 2017-08-20)
PROC: 5A1D70Z Performance of Urinary Filtration, Intermittent, Less than 6 Hours Per Day (ICD-10-PCS; 2017-08-21)
PROC: 0DH63UZ Insertion of Feeding Device into Stomach, Percutaneous Approach (ICD-10-PCS; 2017-08-23)
PROC: 5A1D70Z Performance of Urinary Filtration, Intermittent, Less than 6 Hours Per Day (ICD-10-PCS; 2017-08-23)
DX: A41.9 Sepsis, unspecified organism (principal); R65.21 Severe sepsis with septic shock; J69.0 Pneumonitis due to inhalation of food and vomit; J15.1 Pneumonia due to Pseudomonas; I13.2 Hypertensive heart and chronic kidney disease with heart failure and with stage 5 chronic kidney disease, or end stage renal disease; I27.20 Pulmonary hypertension, unspecified; N18.6 End stage renal disease; E83.42 Hypomagnesemia; E11.22 Type 2 diabetes mellitus with diabetic chronic kidney disease; E11.649 Type 2 diabetes mellitus with hypoglycemia without coma; I50.33 Acute on chronic diastolic (congestive) heart failure; Z99.11 Dependence on respirator [ventilator] status; E87.1 Hypo-osmolality and hyponatremia; J44.0 Chronic obstructive pulmonary disease with (acute) lower respiratory infection; J38.01 Paralysis of vocal cords and larynx, unilateral; E87.5 Hyperkalemia; R13.10 Dysphagia, unspecified; I25.10 Atherosclerotic heart disease of native coronary artery without angina pectoris; H50.9 Unspecified strabismus; E87.6 Hypokalemia; Z87.891 Personal history of nicotine dependence; Z99.2 Dependence on renal dialysis; Z79.4 Long term (current) use of insulin; Z86.73 Personal history of transient ischemic attack (TIA), and cerebral infarction without residual deficits; Z95.5 Presence of coronary angioplasty implant and graft

== ENCOUNTER 2017-09-19 17:42 | Inpatient (IN) | payer MEDICARE, MEDICAID ==
[2017-09-19 17:42] VITALS: BMI 21.2
--- NOTE | 2017-09-19 19:13 | C.PDOC ---
History Of Present Illness 62 year old male is brought to the ED by ambulance after being sent from [facility] for evaluation of persistent bleeding and infection of his left arm AV fistula. The AV fistula was taped and bandaged in order to control bleeding. Patient denies fever, chills. Time Seen by Provider: 09/19/17 18:16 Chief Complaint (Nursing): Vascular Access Device Problem History Per: Patient History/Exam Limitations: no limitations Onset/Duration Of Symptoms: Hrs Current Symptoms Are (Timing): Still Present Additional History Per: Patient Past Medical History Reviewed: Historical Data, Nursing Documentation, Vital Signs Vital Signs: Last Vital Signs Temp 96.1 F L 09/19/17 21:47 Pulse 64 09/19/17 21:47 Resp 17 09/19/17 21:47 BP 127/55 L 09/19/17 21:47 Pulse Ox 100 09/19/17 23:10 - Medical History PMH: Anemia (BLOOD TRANSFUSION-ACCIDENTAL DISLODGEMENT OF NEEDLE TO SHUNT LOST 2 L OF BL), Arthritis, CHF, COPD, Diabetes, Gastrointestinal Ulcer, HTN, Hypercholesterolemia, Hyperlipidemia, Hypothyroidism, Pneumonia, End Stage Renal Disease (on hemodialysis 3x a week), Chronic Kidney Disease, TIA Denies: Bronchitis Surgical History: Coronary Stent Denies: Pacemaker - [facility] Procedures (08/10/17) BYPASS TRACHEA TO CUTANEOUS WITH TRACH DEV, PERC APPROACH (08/10/17) CONTINUOUS INVASIVE MECHANICAL VENTILATION <96 CONSEC HRS (01/16/13) CORONAR ARTERIOGR-2 CATH (05/04/12) DESTRUCTION OF STOMACH, ENDO (12/21/15) DX ULTRASOUND-HEAD/NECK (04/25/12) GAIT TRAINING/FUNCTIONAL AMBULATION TREATMENT (09/03/15) HEAD SOFT TISS X-RAY NEC (04/25/12) HEMODIALYSIS (10/01/14) INCIS W REM OF FORIEGN BODY OR DEV FROM SKIN & SUBCUT TISSUE (01/15/13) INSERT ENDOTRACHEAL TUBE (01/16/13) INSERTION OF ENDOTRACHEAL AIRWAY INTO TRACHEA, VIA OPENING (08/10/17) INSERTION OF FEEDING DEVICE INTO STOMACH, PERC APPROACH (08/10/17) INSERTION OF INFUSION DEV INTO SUP VENA CAVA, PERC APPROACH (08/10/17) INSERTION OF ONE VASCULAR STENT (05/04/12) INSERTION OF TOTALLY IMPLANTABLE VASC ACCESS DEVIC (07/24/12) INSPECTION OF LARYNX, ENDO (08/29/15) INSRT OF DRUG-ELUTING CORON ARTERY STENTS(S) (05/04/12) INTRODUCE OF OTH THERAP SUBST INTO RESP TRACT, VIA OPENING (12/21/15) LEFT HEART CARDIAC CATH (05/04/12) LT HEART ANGIOCARDIOGRAM (05/04/12) MAGNETIC RESONANCE IMAGING OF BRAIN AND BRAIN STEM (11/12/12) MAGNETIC RESONANCE IMAGING OF MUSCULOSKELETAL (12/03/12) NEBULIZER THERAPY (01/16/13) NONEXCIS DEBRID OF WOUND, INFECT, OR BURN (12/03/12) PACKED CELL TRANSFUSION (05/04/12) PERCUTANEOUS TRANSLUMINAL CORONARY ANGIOPLASTY [PTCA] (05/04/12) PERFORMANCE OF URINARY FILTRATION, MULTIPLE (12/21/15) PERFORMANCE OF URINARY FILTRATION, SINGLE (11/12/15) PROCEDURE ON SINGLE VESSEL (05/04/12) RESPIRATORY VENTILATION, 24-96 CONSECUTIVE HOURS (06/20/17) RESPIRATORY VENTILATION, GREATER THAN 96 CONSECUTIVE HOURS (08/10/17) TRANSFUSE NONAUT RED BLOOD CELLS IN PERIPH VEIN, PERC (12/21/15) VACCINATION NEC (07/24/12) VENOUS CATHETERIZATION FOR RENAL DIALYSIS (04/25/12) VENOUS PUNCTURE NEC (08/19/13) VOCATION/COMMUN TREATMENT (09/03/15) Family History: States: Unknown Family Hx - Social History Hx Tobacco Use: No Hx Alcohol Use: No Hx Substance Use: No Review Of Systems Constitutional: Negative for: Fever, Chills Skin: Positive for: Other (bleeding and infection of left arm AV fistula ) Physical Exam - Physical Exam Appears: Non-toxic, No Acute Distress Skin: Normal Color, Warm, Dry Head: Atraumatic, Normacephalic Eye(s): bilateral: Normal Inspection Oral Mucosa: Moist Throat: Other (tracheostomy) Neck: Supple Chest: Symmetrical, No Deformity, No Tenderness Cardiovascular: Rhythm Regular, No Murmur Respiratory: Normal Breath Sounds, No Rales, No Rhonchi, No Wheezing Extremity: Normal ROM, Capillary Refill (less than 2 seconds ), Other (AV fistula to left upper extremity. Area is nontender with no evidence of cellulitis. PICC line in right upper extremity ) Neurological/Psych: Oriented x3, Normal Speech, Normal Cognition Gait: Steady ED Course And Treatment - Laboratory Results Result Diagrams: 09/19/17 19:16 09/19/17 19:16 Lab Interpretation: Normal (+ anemia) ECG: Interpreted By Me ECG Rhythm: Sinus Rhythm ECG Interpretation: Normal Rate From EC O2 Sat by Pulse Oximetry: 100 (on RA ) Pulse Ox Interpretation: Normal - Radiology CXR: Interpreted by Me CXR Interpretation: Yes: No Acute Disease, Other (PICC good line good place-may be used, Trach in good place, no pna/pnx) Progress Note: Bloodwork, urinalysis, CXR, EKG ordered and reviewed. Reevaluation Time: 19:46 Reassessment Condition: Unchanged - Physician Consult Information Outcome Of Conversation: 1929: d/w Surgical Oscar and Dr. Deshpande, ok to consult. 1929: d/w Dr. Dada Hernandez, referred pt to ED, ok to admit. Medical Decision Making Medical Decision Making: L AV fistula no acute infection, post-HD minor bleeding resolved. Will admit and US of the AV Fistula in AM. Disposition Doctor Will See Patient In The: Hospital Counseled Patient/Family Regarding: Studies Performed, Diagnosis - Disposition Disposition: HOSPITALIZED Disposition Time: 19:48 Condition: GOOD - Clinical Impression Clinical Impression: Surgical arteriovenous fistula hemorrhage - Scribe Statement The provider has reviewed the documentation as recorded by the Scribe (Nikky Hernandez) Provider Attestation: All medical record entries made by the Scribe were at my direction and personally dictated by me. I have reviewed the chart and agree that the record accurately reflects my personal performance of the history, physical exam, medical decision making, and the department course for this patient. I have also personally directed, reviewed, and agree with the discharge instructions and disposition.
[2017-09-19 19:18] LABS: BASO % 0.4 % (0.0-2.0); EOS # 0.4 K/uL (0.0-0.7); EOS % 6.5 % (0.0-4.0); HEMOGLOBIN 8.8 g/dL (12.0-18.0); LYMPH # 1.7 K/uL (1.0-4.3); LYMPH % 27.7 % (20.0-40.0); MEAN CELL VOLUME 87.2 fL (80.0-94.0); MEAN CORPUSCULAR HEMOGLOBIN 28.2 pg (27.0-31.0); MEAN CORPUSCULAR HGB CONC 32.3 g/dL (33.0-37.0); MEAN PLATELET VOLUME 9.6 fL (7.2-11.7); MONO # 0.4 K/uL (0.0-0.8); MONO % 7.2 % (0.0-10.0); NEUT # 3.5 K/uL (1.8-7.0); NEUT % 58.2 % (50.0-75.0); RBC 3.11 Mil/uL (4.40-5.90); RED CELL DISTRIBUTION WIDTH 17.5 % (11.5-14.5)
[2017-09-19 19:26] LABS: INR 1.2; PROTHROMBIN TIME 13.5 SECONDS (9.7-12.2)
--- NOTE | 2017-09-19 19:33 | CP.PCM.CON ---
History of Present Illness - History of Present Illness History of Present Illness: Vascular Surgery Consult note. Dr. Deshpande Patient's history obtained from chart review and nursing staff due to patient's non-verbal status secondary to Tracheostomy 62yo M with PMHx of CAD, HTN, DM, ESRD on HD, CHF, Hypothyroid, COPD, HLD sent in from [facility] by Dr. Dada Hernandez for evaluation of possible Left Arm AV Fistula infection. Patient had HD done today and experienced bleeding from the access site. Patient is responsive to verbal and tactile stilmuli and responds appropriately to some questions by nodding. Upon reviewing chart from [facility], patient had labs obtained on 09/13/17 with no leukocytosis and without any reported febrile episodes. 12-point ROS unable to be obtained due to patient's current condition PMD: Dr. Barth Nephrology: Dr. Hernandez PMHx: CAD, HTN, DM, ESRD on HD, CHF, Hypothyroid, COPD, HLD PSHx: Tracheostomy 08/14/17, Bilroth 1 secondary to penetrating Abd wound, L AVF, Cardiac stent x2, Gastrostomy tube Social Hx: Former smoker; No reported ETOH use; No reported illicit drugs Family Hx: unknown Allergy: Tetanus and diphtheria toxoids Review of Systems - Review of Systems Systems not reviewed;Unavailable: Other (tracheostomy and on vent) - Constitutional Constitutional: absent: Fever Past Patient History - Infectious Disease Hx of Infectious Diseases: None - Tetanus Immunizations Tetanus Immunization: Unknown - Past Medical History & Family History Past Medical History?: Yes - Past Social History Smoking Status: Never Smoked Alcohol: None Home Situation {Lives}: Other (From [facility]) - CARDIAC Hx Congestive Heart Failure: Yes Hx Hypercholesterolemia: Yes Hx Hypertension: Yes Hx Pacemaker: No - PULMONARY Hx Bronchitis: No Hx Chronic Obstructive Pulmonary Disease (COPD): Yes Hx Pneumonia: Yes - NEUROLOGICAL Hx Transient Ischemic Attacks (TIA): Yes - HEENT Hx HEENT Problems: Yes (WEARS RX GLASSES) Hx Cataracts: Yes (RIGHT EYE) Other/Comment: left strabismus - RENAL Hx Chronic Kidney Disease: Yes - ENDOCRINE/METABOLIC Hx Hypothyroidism: Yes - HEMATOLOGICAL/ONCOLOGICAL Hx Anemia: Yes (BLOOD TRANSFUSION-ACCIDENTAL DISLODGEMENT OF NEEDLE TO SHUNT LOST 2 L OF BL) - INTEGUMENTARY Hx Dermatological Problems: Yes Hx Cellulitis: Yes (L upper limb) Other/Comment: dry itchy skin - MUSCULOSKELETAL/RHEUMATOLOGICAL Hx Arthritis: Yes - GASTROINTESTINAL Hx Gastrointestinal Disorders: Yes (ASCITES 10-01-14,GASTROENTERITIS) Hx Ulcer: Yes Other/Comment: CONSTIPATION, hx c dif 09/16/15. Maltruition - GENITOURINARY/GYNECOLOGICAL Hx Genitourinary Disorders: Yes Other/Comment: oliguria - PSYCHIATRIC Hx Substance Use: No - SURGICAL HISTORY Hx Coronary Stent: Yes - ANESTHESIA Hx Anesthesia: Yes Hx Anesthesia Reactions: No Hx Malignant Hyperthermia: No Meds Allergies/Adverse Reactions: Allergies Allergy/AdvReac Type Severity Reaction Status Date / Time tetanus and diphtheria Allergy RASH Verified 09/19/17 17:57 toxoids [tetanus & diphtheria toxoids] Physical Exam - Constitutional Appears: Non-toxic, No Acute Distress, Older Than Stated Age, Chronically Ill - Head Exam Head Exam: ATRAUMATIC, NORMAL INSPECTION, NORMOCEPHALIC - Eye Exam Eye Exam: EOMI. absent: Scleral icterus - ENT Exam ENT Exam: Mucous Membranes Moist - Respiratory Exam Respiratory Exam: NORMAL BREATHING PATTERN. absent: Accessory Muscle Use, Respiratory Distress Additional comments: tracheostomy in place and on vent - Cardiovascular Exam Cardiovascular Exam: RRR. absent: JVD - GI/Abdominal Exam GI & Abdominal Exam: Soft. absent: Guarding, Rebound, Rigid, Tenderness Additional comments: Gastrostomy tube in place - Extremities Exam Additional comments: left upper extremity with two AVF aneurysms noted. No erythema, no induration no active bleeding or drainage Palpable thrill - Neurological Exam Additional comments: tracheostomy in place somnolent but easily arousable - Skin Skin Exam: Dry, Intact, Normal Color, Warm Results - Vital Signs Recent Vital Signs: Last Vital Signs Temp 98.4 F 09/19/17 19:26 Pulse 60 09/19/17 19:26 Resp 22 09/19/17 19:26 BP 155/37 H 09/19/17 19:26 Pulse Ox 100 09/19/17 19:26 - Labs Result Diagrams: 09/19/17 19:16 09/19/17 19:16 Labs: Laboratory Results - last 24 hr 09/19/17 09/19/17 19:16 19:16 WBC 6.0 D RBC 3.11 L Hgb 8.8 L Hct 27.1 L MCV 87.2 MCH 28.2 MCHC 32.3 L RDW 17.5 H Plt Count 143 MPV 9.6 Neut % (Auto) 58.2 Lymph % (Auto) 27.7 [place] % (Auto) 7.2 Eos % (Auto) 6.5 H Baso % (Auto) 0.4 Neut # (Auto) 3.5 Lymph # (Auto) 1.7 [place] # (Auto) 0.4 Eos # (Auto) 0.4 Baso # (Auto) 0.0 PT 13.5 H INR 1.2 APTT 42 H Assessment & Plan - Assessment and Plan (Free Text) Assessment: 62yo M with Left AV Fistula vs. Graft. Here for evaluation of graft/fistula infection vs. hemorrhage Plan: - No active hemorrhage noted - Low suspicion of AVF infection - f/u HD access duplex US - f/u labs - f/u blood cultures - further recs following US study Further recs as per Dr. Charlee Gerber PGY1 surgery pager: [phone]
[2017-09-19 19:35] LABS: ALB/GLOB RATIO 0.5 (1.0-2.1); CALCIUM 8.6 mg/dl (8.6-10.4)
[2017-09-19 19:45] LABS: TROPONIN I 0.021 ng/mL (0.00-0.120)
[2017-09-20] MEDS ORDERED: guaiFENesin 100 mg/5 ml Syrup UD PEG PRN ×2 (01:45→10:35)
[2017-09-20] MEDS ORDERED: HYDROMORPHONE HCL IV PRN (01:45)
[2017-09-20] MEDS ORDERED: Acetaminophen 650mg/20.3ml solution UD PEG PRN ×2 (01:45→10:34)
[2017-09-20] MEDS: Ammonium Lactate 12% Lotion (225 g) TOP SCH ×3 (05:54→21:28)
[2017-09-20] MEDS ORDERED: AMMONIUM LACTATE 12% TOP SCH (06:00)
[2017-09-20] MEDS ORDERED: INSULIN ASPART 100 UNIT SC SCH (06:00)
[2017-09-20] MEDS ORDERED: Ipratropium 0.02% Inhal Soln (0.5 mg/2.5 ml) UD IH SCH (06:00)
[2017-09-20] MEDS ORDERED: (Novolog) Insulin Aspart, Recombinant 100 u/ml 10 ml vial SC SCH ×2 (07:30)
[2017-09-20] MEDS: (Novolog) Insulin Aspart, Recombinant 100 u/ml 10 ml vial SC SCH ×3 (07:51→21:29)
[2017-09-20] MEDS: Ipratropium 0.02% Inhal Soln (0.5 mg/2.5 ml) UD IH SCH ×2 (08:23→13:18)
--- NOTE | 2017-09-20 08:50 | RAD ---
Chest x-ray single frontal view History: Shortness of breath. Comparison: 06/20/2017 Findings: Tracheostomy tube in place. Other lines and tubes in stable position. Biapical pleural thickening with upper lobe granulomatous changes. Diffuse increased interstitial lung markings which may represent underlying infiltrate and or edema. Additional consolidative changes in the right hilar region and lung base. Small left pleural effusion. Mild atelectatic changes in the right midlung zone. Cardiomegaly. Calcification at the aortic knob. Degenerative changes in the spine and shoulders. Impression: Tracheostomy tube in place. Other lines and tubes in stable position. Biapical pleural thickening with upper lobe granulomatous changes. Diffuse increased interstitial lung markings which may represent underlying infiltrate and or edema. Additional consolidative changes in the right hilar region and lung base. Small left pleural effusion. Mild atelectatic changes in the right midlung zone. Cardiomegaly. Calcification at the aortic knob. Degenerative changes in the spine and shoulders.
[2017-09-20] MEDS ORDERED: METOLAZONE 10 MG PEG SCH (10:00)
[2017-09-20] MEDS ORDERED: Enoxaparin 40 mg Syringe SC SCH (10:00)
[2017-09-20] MEDS ORDERED: Epoetin Alfa 10,000 unit/ml Dialysis SC SCH (10:00)
[2017-09-20] MEDS ORDERED: DEX IVPB SCH ×2 (10:00→22:00)
[2017-09-20] MEDS ORDERED: TAZO IVPB SCH ×2 (10:00→22:00)
[2017-09-20] MEDS ORDERED: CHLORHEXIDINE 0.12% PEG SCH ×2 (10:00→22:00)
[2017-09-20] MEDS ORDERED: PIPERACILL IVPB SCH ×2 (10:00→22:00)
[2017-09-20] MEDS ORDERED: Levothyroxine 50 MCG TAB PEG SCH ×2 (10:00→11:15)
--- NOTE | 2017-09-20 10:47 | CP.PCM.PN ---
Subjective - Date & Time of Evaluation Date of Evaluation: 09/20/17 Time of Evaluation: 09:35 - Subjective Subjective: PGY-[address] Hernandez Patient seen and examined at bedside. No acute events reported by nursing staff. Patient is resting in bed and currently on ventilator. Patient is responsive to some verbal stimuli by nodding and blinking eyes. Unable to obtain detailed ROS due to patient's condition. Objective - Vital Signs/Intake and Output Vital Signs (last 24 hours): Temp Pulse Resp BP Pulse Ox 98.4 F 60 20 93/59 L 99 09/20/17 08:33 09/20/17 08:33 09/20/17 08:33 09/20/17 08:33 09/20/17 08:33 Intake and Output: 09/20/17 09/20/17 06:59 18:59 Intake Total 100 Balance 100 - Medications Medications: Current Medications Acetaminophen (Tylenol 650mg/20.3ml Solution Ud) 650 mg PEG PRN PRN PRN Reason: Fever >100.4 F Clonidine HCl (Catapres) 0.3 mg PEG Q8 [facility] Last Admin: 09/20/17 05:55 Dose: 0.3 mg Clopidogrel Bisulfate (Plavix) 75 mg PEG DAILY [facility] Enoxaparin Sodium (Lovenox) 30 mg SC DAILY [facility] Epoetin Alan (Procrit) 10,000 unit SC TTS [facility] Famotidine (Pepcid) 20 mg PEG HS [facility] Guaifenesin (Robitussin) 100 mg PEG PRN PRN PRN Reason: Cough Home Med (Chlorhexidine 0.12% [Peridex]) 473 ml PEG Q12 [facility] Home Med (Hydromorphone Hcl [Hydromorphone Hcl]) 0.5 mg IV Q8 PRN PRN Reason: Pain, severe (8-10) Home Med (Metolazone [Metolazone]) 10 mg PEG DAILY [facility] Home Med (Piperacill/Tazo 2.25gm In Dex [Zosyn 2.25 Gm Iv Premix]) 2.25 gm IVPB Q12 [facility] Hydralazine HCl (Apresoline) 10 mg IVP Q6 PRN PRN Reason: Systolic Blood Pressure Insulin Aspart (Novolog) 0 unit SC ACHS [facility] PRN Reason: Protocol Last Admin: 03/15/18 07:51 Dose: Not Given Ipratropium [place] (Atrovent) 2.5 mg IH RQ6 [facility] Last Admin: 09/20/17 08:23 Dose: 2.5 mg Isosorbide Dinitrate (Isordil) 20 mg PEG Q8 [facility] Last Admin: 09/20/17 05:55 Dose: 20 mg Lactic Acid (Lac-Hydrin 12% Lotion (225 G)) 1 gm TOP QSHIFT [facility] Last Admin: 09/20/17 05:54 Dose: 1 dose Lactulose (Enulose) 20 gm PEG HS [facility] Levothyroxine Sodium (Synthroid) 50 mcg PEG DAILY [facility] Metoclopramide HCl (Reglan) 10 mg IVPB Q6 [facility] Last Admin: 09/20/17 05:55 Dose: 10 mg Potassium Phos/Sodium Phos (Neutra-Phos) 1 pkt PEG TID [facility] Rosuvastatin Calcium (Crestor) 5 mg PEG HS [facility] - Labs Labs: 09/19/17 19:16 09/19/17 19:16 PT 13.5 SECONDS (9.7-12.2) H 09/19/17 19:16 INR 1.2 09/19/17 19:16 APTT 42 SECONDS (21-34) H 09/19/17 19:16 - Constitutional Appears: No Acute Distress, Chronically Ill - Head Exam Head Exam: ATRAUMATIC, NORMOCEPHALIC - Eye Exam Eye Exam: EOMI - ENT Exam ENT Exam: Mucous Membranes Moist - Neck Exam Additional comments: tracheostomy in place - Respiratory Exam Respiratory Exam: absent: Respiratory Distress Additional comments: Patient is on ventilator - Cardiovascular Exam Cardiovascular Exam: REGULAR RHYTHM, +S1, +S2 - GI/Abdominal Exam GI & Abdominal Exam: Soft Additional comments: Gastrostomy tube - Extremities Exam Extremities Exam: absent: Joint Swelling Additional comments: Left upper extremity: AVF palpable thrill, slight erythema, no active bleeding appreciated - Neurological Exam Neurological Exam: Alert, Awake - Skin Skin Exam: Dry, Warm Assessment and Plan - Assessment and Plan (Free Text) Assessment: Infected left AV fistula -No leukocytosis, afebrile -Pending blood culture -Pending HD access duplex US -IV Zosyn Q12, Vancomycin MWF -Vascular surgery consult, Dr. Deshpande help appreciated -ID consult, Dr. Hilton help appreciated -Patient has history of serge infection at AVF site Abdominal Distention -Follow GI and surgery recommendations -CT abdomen showed Small bilateral pleural effusions and Nonspecific small bowel prominence as well as small bowel wall thickening. Correlate clinically for possibility of developing obstruction as well as enteritis (see full report) -Elizabeth phos 485, abdominal ultrasound pending ESRD -Dialysis on MWF -Procrit 80612 units MWF -Neutraphos TID -Daughter Jyotsna consented to HD on MWF over the phone CAD -Plavix -Catapres CHF -Metolazone DM -ISS -D5 @40ml/hr for hypoglycemia Hyperlipidemia -Crestor 5mg HS Hypothyroidism -Synthroid 50mcg Prophylactic measures -Pepic -Lovenox -Tylenol Case discussed with attending Dr. Hernandez All management per Dr. Hernandez
[2017-09-20] MEDS ORDERED: HYDROmorphone 0.5 mg/0.5 ml ISec IVP PRN (11:00)
--- NOTE | 2017-09-20 11:48 | CP.PCM.PN ---
Subjective - Date & Time of Evaluation Date of Evaluation: 09/20/17 Time of Evaluation: 07:15 - Subjective Subjective: vasc sx: Dr Deshpande Pt S&e. Condition remains unchanged. No evidence of active infection. Duplex of LUE AVF pending Objective - Vital Signs/Intake and Output Vital Signs (last 24 hours): Temp Pulse Resp BP Pulse Ox 98.4 F 60 20 93/59 L 99 09/20/17 08:33 09/20/17 08:33 09/20/17 08:33 09/20/17 08:33 09/20/17 08:33 Intake and Output: 09/20/17 09/20/17 06:59 18:59 Intake Total 100 Balance 100 - Medications Medications: Current Medications Acetaminophen (Tylenol 650mg/20.3ml Solution Ud) 650 mg PEG PRN PRN PRN Reason: Fever >100.4 F Clonidine HCl (Catapres) 0.3 mg PEG Q8 [facility] Last Admin: 09/20/17 05:55 Dose: 0.3 mg Clopidogrel Bisulfate (Plavix) 75 mg PEG DAILY [facility] Enoxaparin Sodium (Lovenox) 30 mg SC DAILY [facility] Epoetin Alan (Procrit) 10,000 unit SC TTS [facility] Famotidine (Pepcid) 20 mg PEG HS [facility] Guaifenesin (Robitussin) 100 mg PEG PRN PRN PRN Reason: Cough Home Med (Chlorhexidine 0.12% [Peridex]) 473 ml PEG Q12 [facility] Home Med (Piperacill/Tazo 2.25gm In Dex [Zosyn 2.25 Gm Iv Premix]) 2.25 gm IVPB Q12 [facility] Hydralazine HCl (Apresoline) 10 mg IVP Q6 PRN PRN Reason: Systolic Blood Pressure Hydromorphone HCl (Dilaudid) 0.5 mg IVP Q8 PRN PRN Reason: Pain, severe (8-10) Insulin Aspart (Novolog) 0 unit SC ACHS [facility] PRN Reason: Protocol Last Admin: 09/20/17 07:51 Dose: Not Given Ipratropium [place] (Atrovent) 2.5 mg IH RQ6 [facility] Last Admin: 09/20/17 08:23 Dose: 2.5 mg Isosorbide Dinitrate (Isordil) 20 mg PEG Q8 [facility] Last Admin: 09/20/17 05:55 Dose: 20 mg Lactic Acid (Lac-Hydrin 12% Lotion (225 G)) 1 gm TOP QSHIFT [facility] Last Admin: 09/20/17 05:54 Dose: 1 dose Lactulose (Enulose) 20 gm PEG HS [facility] Levothyroxine Sodium (Synthroid) 50 mcg PEG QD7 [facility] Metoclopramide HCl (Reglan) 10 mg IVPB Q6 [facility] Last Admin: 09/20/17 05:55 Dose: 10 mg Metolazone (Zaroxolyn) 10 mg PEG DAILY [facility] Potassium Phos/Sodium Phos (Neutra-Phos) 1 pkt PEG TID [facility] Rosuvastatin Calcium (Crestor) 5 mg PEG HS [facility] - Labs Labs: 09/19/17 19:16 09/19/17 19:16 PT 13.5 SECONDS (9.7-12.2) H 09/19/17 19:16 INR 1.2 09/19/17 19:16 APTT 42 SECONDS (21-34) H 09/19/17 19:16 - Constitutional Appears: Chronically Ill - ENT Exam ENT Exam: Normal Exam - Respiratory Exam Respiratory Exam: absent: Respiratory Distress - Extremities Exam Additional comments: left avf with palpable thrill , no erythema, no discharge - Neurological Exam Neurological Exam: Awake. absent: Oriented x3 Assessment and Plan - Assessment and Plan (Free Text) Assessment: 62M with ESRD: asked to eval LUE for active infection Plan: pending duplex to eval AVF will f/u results and d/w Dr Charlee Constantino, PGY3
[2017-09-20] MEDS: Potassium & Sodium Phosphate PEG SCH ×3 (11:49→17:52)
[2017-09-20] MEDS: Piperacill/Tazo 2.25gm in Dex 2.25 GM/50 ML BAG IVPB SCH (13:30)
--- NOTE | 2017-09-20 13:45 | CP.PCM.CON ---
History of Present Illness - History of Present Illness History of Present Illness: This is a 62 year old man S/P PEG 09/02/17 with large gastric residual volumes. Patient was admitted 08/10/17 for tracheostomy and PEG. He had documented aspiration at the beginning of the year. An EGD at [facility] in [place] from July was done, but PEG could not be placed owing to the presence of a bezoar. PEG was ultimately done 08/23/17. Of note, food was seen in the esophagus but not the stomach. Patient was also noted to be S/P antrectomy and Bilroth II gastrojejunostomy. Patient was transferred to the ER for persistent bleeding and possible infection of the AV fistula in the left UE. Nurses report that gastric residual volumes had been high, over one liter. Patient is S/P tracheostomy and cannot give details as to the history. Review of Systems - Review of Systems Systems not reviewed;Unavailable: Intubated Past Patient History - Infectious Disease Hx of Infectious Diseases: None - Tetanus Immunizations Tetanus Immunization: Unknown - Past Medical History & Family History Past Medical History?: Yes - Past Social History Smoking Status: Former Smoker - CARDIAC Hx Congestive Heart Failure: Yes Hx Hypercholesterolemia: Yes Hx Hypertension: Yes Hx Pacemaker: No - PULMONARY Hx Bronchitis: No Hx Chronic Obstructive Pulmonary Disease (COPD): Yes Hx Pneumonia: Yes - NEUROLOGICAL Hx Transient Ischemic Attacks (TIA): Yes - HEENT Hx HEENT Problems: Yes (WEARS RX GLASSES) Hx Cataracts: Yes (RIGHT EYE) Other/Comment: left strabismus - RENAL Hx Chronic Kidney Disease: Yes - ENDOCRINE/METABOLIC Hx Hypothyroidism: Yes - HEMATOLOGICAL/ONCOLOGICAL Hx Anemia: Yes (BLOOD TRANSFUSION-ACCIDENTAL DISLODGEMENT OF NEEDLE TO SHUNT LOST 2 L OF BL) - INTEGUMENTARY Hx Dermatological Problems: Yes Hx Cellulitis: Yes (L upper limb) Other/Comment: dry itchy skin - MUSCULOSKELETAL/RHEUMATOLOGICAL Hx Arthritis: Yes Hx Falls: No - GASTROINTESTINAL Hx Gastrointestinal Disorders: Yes (ASCITES 10-01-14,GASTROENTERITIS) Hx Ulcer: Yes Other/Comment: CONSTIPATION, hx c dif 09/16/15. Maltruition - GENITOURINARY/GYNECOLOGICAL Hx Genitourinary Disorders: Yes Other/Comment: oliguria - PSYCHIATRIC Hx Substance Use: No - SURGICAL HISTORY Hx Coronary Stent: Yes - ANESTHESIA Hx Anesthesia: Yes Hx Anesthesia Reactions: No Hx Malignant Hyperthermia: No Meds Allergies/Adverse Reactions: Allergies Allergy/AdvReac Type Severity Reaction Status Date / Time tetanus and diphtheria Allergy RASH Verified 09/19/17 17:57 toxoids [tetanus & diphtheria toxoids] - Medications Medications: Current Medications Acetaminophen (Tylenol 650mg/20.3ml Solution Ud) 650 mg PEG Q6H PRN PRN Reason: Fever >100.4 F Clonidine HCl (Catapres) 0.3 mg PEG Q8 [facility] Last Admin: 09/20/17 05:55 Dose: 0.3 mg Clopidogrel Bisulfate (Plavix) 75 mg PEG DAILY [facility] Last Admin: 09/20/17 11:49 Dose: 75 mg Enoxaparin Sodium (Lovenox) 30 mg SC DAILY [facility] Epoetin Alan (Procrit) 10,000 unit SC TTS [facility] Famotidine (Pepcid) 20 mg PEG HS [facility] Guaifenesin (Robitussin) 100 mg PEG Q6H PRN PRN Reason: Cough Hydralazine HCl (Apresoline) 10 mg IVP Q6 PRN PRN Reason: Systolic Blood Pressure Hydromorphone HCl (Dilaudid) 0.5 mg IVP Q8 PRN PRN Reason: Pain, severe (8-10) Piperacillin Sod/Tazobactam Sod (Zosyn 2.25 Gm Iv Premix) 2.25 gm in 50 mls @ 100 mls/hr IVPB Q12H [facility] Last Admin: 09/20/17 13:30 Dose: 100 mls/hr Insulin Aspart (Novolog) 0 unit SC ACHS [facility] PRN Reason: Protocol Last Admin: 09/20/17 12:29 Dose: Not Given Ipratropium [place] (Atrovent) 2.5 mg IH RQ6 [facility] Last Admin: 09/20/17 13:18 Dose: 2.5 mg Isosorbide Dinitrate (Isordil) 20 mg PEG Q8 [facility] Last Admin: 09/20/17 05:55 Dose: 20 mg Lactic Acid (Lac-Hydrin 12% Lotion (225 G)) 1 gm TOP QSHIFT [facility] Last Admin: 09/20/17 05:54 Dose: 1 dose Lactulose (Enulose) 20 gm PEG HS [facility] Levothyroxine Sodium (Synthroid) 50 mcg PEG 0630 [facility] Metoclopramide HCl (Reglan) 10 mg IVPB Q6 [facility] Last Admin: 09/20/17 05:55 Dose: 10 mg Metolazone (Zaroxolyn) 10 mg PEG DAILY [facility] Potassium Phos/Sodium Phos (Neutra-Phos) 1 pkt PEG TID [facility] Last Admin: 09/20/17 11:49 Dose: 1 pkt Rosuvastatin Calcium (Crestor) 5 mg PEG HS [facility] Physical Exam - Constitutional Appears: No Acute Distress - Head Exam Head Exam: ATRAUMATIC - Eye Exam Eye Exam: EOMI, PERRL - Neck Exam Neck exam: Negative for: Lymphadenopathy, Thyromegaly - Respiratory Exam Respiratory Exam: NORMAL BREATHING PATTERN. absent: Rales, Rhonchi, Wheezes - Cardiovascular Exam Cardiovascular Exam: REGULAR RHYTHM, +S1. absent: Gallop, Rubs, Systolic Murmur - GI/Abdominal Exam GI & Abdominal Exam: Distended, Normal Bowel Sounds, Soft. absent: Tenderness Additional comments: Healed, midline laparotomy incision; G tube in place in the midline epigastrium , clean and dry - Rectal Exam Rectal Exam: Deferred - Extremities Exam Extremities exam: Negative for: calf tenderness, pedal edema Results - Vital Signs Recent Vital Signs: Last Vital Signs Temp 98.4 F 09/20/17 08:33 Pulse 60 09/20/17 08:33 Resp 20 09/20/17 08:33 BP 93/59 L 09/20/17 08:33 Pulse Ox 99 09/20/17 08:33 - Labs Result Diagrams: 09/19/17 19:16 09/19/17 19:16 Labs: Laboratory Results - last 24 hr 09/19/17 09/19/17 09/19/17 19:16 19:16 19:16 WBC 6.0 D RBC 3.11 L Hgb 8.8 L Hct 27.1 L MCV 87.2 MCH 28.2 MCHC 32.3 L RDW 17.5 H Plt Count 143 MPV 9.6 Neut % (Auto) 58.2 Lymph % (Auto) 27.7 [place] % (Auto) 7.2 Eos % (Auto) 6.5 H Baso % (Auto) 0.4 Neut # (Auto) 3.5 Lymph # (Auto) 1.7 [place] # (Auto) 0.4 Eos # (Auto) 0.4 Baso # (Auto) 0.0 PT 13.5 H INR 1.2 APTT 42 H Sodium 137 Potassium 3.9 Chloride 93 L Carbon Dioxide 27 Anion Gap 21 H BUN 33 H Creatinine 2.8 H Est GFR ( Amer) 28 Est GFR (Non-Af Amer) 23 POC Glucose (mg/dL) Random Glucose 126 H Calcium 8.6 Total Bilirubin 0.7 AST 45 ALT 27 Alkaline Phosphatase 485 H D Troponin I 0.0210 Total Protein 8.5 H Albumin 3.0 L D Globulin 5.6 H Albumin/Globulin Ratio 0.5 L 09/20/17 09/20/17 09/20/17 06:31 08:07 11:20 WBC RBC Hgb Hct MCV MCH MCHC RDW Plt Count MPV Neut % (Auto) Lymph % (Auto) [place] % (Auto) Eos % (Auto) Baso % (Auto) Neut # (Auto) Lymph # (Auto) [place] # (Auto) Eos # (Auto) Baso # (Auto) PT INR APTT Sodium Potassium Chloride Carbon Dioxide Anion Gap BUN Creatinine Est GFR ( Amer) Est GFR (Non-Af Amer) POC Glucose (mg/dL) 109 89 94 Random Glucose Calcium Total Bilirubin AST ALT Alkaline Phosphatase Troponin I Total Protein Albumin Globulin Albumin/Globulin Ratio Assessment & Plan (1) Small bowel obstruction Assessment and Plan: Nursing staff reported increased gastric residual volumes. CT scan shows distention of the small bowel, possible pseudoobstruction or mechanical SBO though the final report is still pending. Will order sonogram as well to investigate the elevated ALKP. Status: Acute
--- NOTE | 2017-09-20 14:15 | CT ---
PROCEDURE: CT Abdomen and Pelvis without Oral or IV contrast. HISTORY: distended abdomen COMPARISON: CT chest performed without IV contrast performed 08/17/17 TECHNIQUE: Contiguous axial images of the abdomen and pelvis. No oral or IV contrast administered. Coronal and Sagittal reformats generated and reviewed. Radiation dose: Total exam DLP = 984.84 mGy-cm. This CT exam was performed using one or more of the following dose reduction techniques: Automated exposure control, adjustment of the mA and/or kV according to patient size, and/or use of iterative reconstruction technique. FINDINGS: There is limited evaluation of the solid organs without the administration of IV contrast. LOWER THORAX: Small right-sided pneumothorax. Pneumomediastinum. Small bilateral pleural effusions and associated compressive consolidations. Partially imaged dense coronary and mitral annulus calcifications. Probable right pleural calcifications. LIVER: Hepatomegaly. Heterogeneous hepatic parenchyma. Punctate hepatic calcifications, likely granulomas. GALLBLADDER AND BILE DUCTS: Cholecystectomy. PANCREAS: Pancreatic atrophy. SPLEEN: Splenomegaly. ADRENALS: Unremarkable. KIDNEYS AND URETERS: Atrophic bilateral kidneys. No hydronephrosis or obstructing renal calculus. BLADDER: Thick-walled under distended urinary bladder. REPRODUCTIVE: Unremarkable. APPENDIX: The appendix is not identified. No secondary signs of acute appendicitis identified. BOWEL: The stomach is nondistended. Lack of oral contrast limits evaluation for bowel pathology. Rectus diastases. Moderate constipation. Nonspecific small bowel prominence in the left upper mid abdomen as well as small bowel wall thickening. Correlate clinically for possibility of developing obstruction as well as enteritis. PERITONEUM: No definite free air. LYMPH NODES: Limited evaluation due to lack oral and IV contrast. VASCULATURE: Dense atherosclerotic calcifications of the aorta and branches. No aortic aneurysm. BONES: Mild diffuse sclerosis of the osseous structures possibly related to renal osteodystrophy. Degenerative changes. OTHER FINDINGS: Soft tissue edema. 1.8 x 2.3 cm mesenteric density possibly non-opacified bowel loop however alternatives including adenopathy must be considered. IMPRESSION: Small right-sided pneumothorax. Small right sided pneumomediastinum. Small bilateral pleural effusions and associated compressive consolidations. Probable right pleural calcifications. Partially imaged dense coronary and mitral annulus calcifications. Nonspecific small bowel prominence in the left upper mid abdomen as well as small bowel wall thickening. Correlate clinically for possibility of developing obstruction as well as enteritis. 1.8 x 2.3 cm mesenteric density possibly non-opacified bowel loop however alternatives including adenopathy/soft tissue mass are considered. If indicated, attention on follow-up imaging with oral contrast suggested Thick-walled under distended urinary bladder. Correlate with urinalysis. Hepatomegaly. Heterogeneous hepatic parenchyma. Punctate hepatic calcifications, likely granulomas. Splenomegaly. Renal atrophy. Mild diffuse sclerosis of the osseous structures possibly related to renal osteodystrophy. Soft tissue edema. PEG tube. Additional findings as above. Findings discussed with Dr. Chau on 09/20/17 at 2 p.m..
--- NOTE | 2017-09-20 14:42 | CP.PCM.HP ---
Past Patient History - Infectious Disease Hx of Infectious Diseases: None - Tetanus Immunizations Tetanus Immunization: Unknown - Past Medical History & Family History Past Medical History?: Yes - Past Social History Smoking Status: Former Smoker - CARDIAC Hx Congestive Heart Failure: Yes Hx Hypercholesterolemia: Yes Hx Hypertension: Yes Hx Pacemaker: No - PULMONARY Hx Bronchitis: No Hx Chronic Obstructive Pulmonary Disease (COPD): Yes Hx Pneumonia: Yes - NEUROLOGICAL Hx Transient Ischemic Attacks (TIA): Yes - HEENT Hx HEENT Problems: Yes (WEARS RX GLASSES) Hx Cataracts: Yes (RIGHT EYE) Other/Comment: left strabismus - RENAL Hx Chronic Kidney Disease: Yes - ENDOCRINE/METABOLIC Hx Hypothyroidism: Yes - HEMATOLOGICAL/ONCOLOGICAL Hx Anemia: Yes (BLOOD TRANSFUSION-ACCIDENTAL DISLODGEMENT OF NEEDLE TO SHUNT LOST 2 L OF BL) - INTEGUMENTARY Hx Dermatological Problems: Yes Hx Cellulitis: Yes (L upper limb) Other/Comment: dry itchy skin - MUSCULOSKELETAL/RHEUMATOLOGICAL Hx Arthritis: Yes Hx Falls: No - GASTROINTESTINAL Hx Gastrointestinal Disorders: Yes (ASCITES 10-01-14,GASTROENTERITIS) Hx Ulcer: Yes Other/Comment: CONSTIPATION, hx c dif 09/16/15. Maltruition - GENITOURINARY/GYNECOLOGICAL Hx Genitourinary Disorders: Yes Other/Comment: oliguria - PSYCHIATRIC Hx Substance Use: No - SURGICAL HISTORY Hx Coronary Stent: Yes - ANESTHESIA Hx Anesthesia: Yes Hx Anesthesia Reactions: No Hx Malignant Hyperthermia: No Meds Allergies/Adverse Reactions: Allergies Allergy/AdvReac Type Severity Reaction Status Date / Time tetanus and diphtheria Allergy RASH Verified 09/19/17 17:57 toxoids [tetanus & diphtheria toxoids] Physical Exam - Constitutional Appears: Well - Head Exam Head Exam: ATRAUMATIC, NORMAL INSPECTION, NORMOCEPHALIC - Eye Exam Eye Exam: EOMI, Normal appearance, PERRL Pupil Exam: NORMAL ACCOMODATION, PERRL - ENT Exam ENT Exam: Mucous Membranes Moist, Normal Exam - Neck Exam Neck exam: Positive for: Normal Inspection - Respiratory Exam Respiratory Exam: Decreased Breath Sounds - Cardiovascular Exam Cardiovascular Exam: REGULAR RHYTHM, +S1, +S2 - GI/Abdominal Exam GI & Abdominal Exam: Diminished Bowel Sounds, Soft - Rectal Exam Rectal Exam: Deferred Results - Vital Signs Recent Vital Signs: Last Vital Signs Temp 98.4 F 09/20/17 08:33 Pulse 60 09/20/17 08:33 Resp 20 09/20/17 08:33 BP 93/59 L 09/20/17 08:33 Pulse Ox 99 09/20/17 08:33 - Labs Result Diagrams: 09/19/17 19:16 09/19/17 19:16 Labs: Laboratory Results - last 24 hr 09/19/17 09/19/17 09/19/17 19:16 19:16 19:16 WBC 6.0 D RBC 3.11 L Hgb 8.8 L Hct 27.1 L MCV 87.2 MCH 28.2 MCHC 32.3 L RDW 17.5 H Plt Count 143 MPV 9.6 Neut % (Auto) 58.2 Lymph % (Auto) 27.7 [place] % (Auto) 7.2 Eos % (Auto) 6.5 H Baso % (Auto) 0.4 Neut # (Auto) 3.5 Lymph # (Auto) 1.7 [place] # (Auto) 0.4 Eos # (Auto) 0.4 Baso # (Auto) 0.0 PT 13.5 H INR 1.2 APTT 42 H Sodium 137 Potassium 3.9 Chloride 93 L Carbon Dioxide 27 Anion Gap 21 H BUN 33 H Creatinine 2.8 H Est GFR ( Amer) 28 Est GFR (Non-Af Amer) 23 POC Glucose (mg/dL) Random Glucose 126 H Calcium 8.6 Total Bilirubin 0.7 AST 45 ALT 27 Alkaline Phosphatase 485 H D Troponin I 0.0210 Total Protein 8.5 H Albumin 3.0 L D Globulin 5.6 H Albumin/Globulin Ratio 0.5 L 09/20/17 09/20/17 09/20/17 06:31 08:07 11:20 WBC RBC Hgb Hct MCV MCH MCHC RDW Plt Count MPV Neut % (Auto) Lymph % (Auto) [place] % (Auto) Eos % (Auto) Baso % (Auto) Neut # (Auto) Lymph # (Auto) [place] # (Auto) Eos # (Auto) Baso # (Auto) PT INR APTT Sodium Potassium Chloride Carbon Dioxide Anion Gap BUN Creatinine Est GFR ( Amer) Est GFR (Non-Af Amer) POC Glucose (mg/dL) 109 89 94 Random Glucose Calcium Total Bilirubin AST ALT Alkaline Phosphatase Troponin I Total Protein Albumin Globulin Albumin/Globulin Ratio Assessment & Plan - Assessment and Plan (Free Text) Plan: Patient is hospitalized because of the Erica infections 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
--- NOTE | 2017-09-20 15:24 | CP.PCM.CON ---
Past Patient History - Infectious Disease Hx of Infectious Diseases: None - Tetanus Immunizations Tetanus Immunization: Unknown - Past Medical History & Family History Past Medical History?: Yes - Past Social History Smoking Status: Former Smoker - CARDIAC Hx Congestive Heart Failure: Yes Hx Hypercholesterolemia: Yes Hx Hypertension: Yes Hx Pacemaker: No - PULMONARY Hx Bronchitis: No Hx Chronic Obstructive Pulmonary Disease (COPD): Yes Hx Pneumonia: Yes - NEUROLOGICAL Hx Transient Ischemic Attacks (TIA): Yes - HEENT Hx HEENT Problems: Yes (WEARS RX GLASSES) Hx Cataracts: Yes (RIGHT EYE) Other/Comment: left strabismus - RENAL Hx Chronic Kidney Disease: Yes - ENDOCRINE/METABOLIC Hx Hypothyroidism: Yes - HEMATOLOGICAL/ONCOLOGICAL Hx Anemia: Yes (BLOOD TRANSFUSION-ACCIDENTAL DISLODGEMENT OF NEEDLE TO SHUNT LOST 2 L OF BL) - INTEGUMENTARY Hx Dermatological Problems: Yes Hx Cellulitis: Yes (L upper limb) Other/Comment: dry itchy skin - MUSCULOSKELETAL/RHEUMATOLOGICAL Hx Arthritis: Yes Hx Falls: No - GASTROINTESTINAL Hx Gastrointestinal Disorders: Yes (ASCITES 10-01-14,GASTROENTERITIS) Hx Ulcer: Yes Other/Comment: CONSTIPATION, hx c dif 09/16/15. Maltruition - GENITOURINARY/GYNECOLOGICAL Hx Genitourinary Disorders: Yes Other/Comment: oliguria - PSYCHIATRIC Hx Substance Use: No - SURGICAL HISTORY Hx Coronary Stent: Yes - ANESTHESIA Hx Anesthesia: Yes Hx Anesthesia Reactions: No Hx Malignant Hyperthermia: No Meds Allergies/Adverse Reactions: Allergies Allergy/AdvReac Type Severity Reaction Status Date / Time tetanus and diphtheria Allergy RASH Verified 09/19/17 17:57 toxoids [tetanus & diphtheria toxoids] - Medications Medications: Current Medications Acetaminophen (Tylenol 650mg/20.3ml Solution Ud) 650 mg PEG Q6H PRN PRN Reason: Fever >100.4 F Clonidine HCl (Catapres) 0.3 mg PEG Q8 [facility] Last Admin: 09/20/17 05:55 Dose: 0.3 mg Clopidogrel Bisulfate (Plavix) 75 mg PEG DAILY [facility] Last Admin: 09/20/17 11:49 Dose: 75 mg Enoxaparin Sodium (Lovenox) 30 mg SC DAILY [facility] Epoetin Alan (Procrit) 10,000 unit IV MWF [facility] Stop: 10/03/17 09:01 Famotidine (Pepcid) 20 mg PEG HS [facility] Guaifenesin (Robitussin) 100 mg PEG Q6H PRN PRN Reason: Cough Hydralazine HCl (Apresoline) 10 mg IVP Q6 PRN PRN Reason: Systolic Blood Pressure Hydromorphone HCl (Dilaudid) 0.5 mg IVP Q8 PRN PRN Reason: Pain, severe (8-10) Piperacillin Sod/Tazobactam Sod (Zosyn 2.25 Gm Iv Premix) 2.25 gm in 50 mls @ 100 mls/hr IVPB Q12H [facility] Last Admin: 09/20/17 13:30 Dose: 100 mls/hr Insulin Aspart (Novolog) 0 unit SC ACHS [facility] PRN Reason: Protocol Last Admin: 09/20/17 12:29 Dose: Not Given Ipratropium [place] (Atrovent) 2.5 mg IH RQ6 [facility] Last Admin: 09/20/17 13:18 Dose: 2.5 mg Isosorbide Dinitrate (Isordil) 20 mg PEG Q8 [facility] Last Admin: 09/20/17 05:55 Dose: 20 mg Lactic Acid (Lac-Hydrin 12% Lotion (225 G)) 1 gm TOP QSHIFT [facility] Last Admin: 09/20/17 13:57 Dose: 1 dose Lactulose (Enulose) 20 gm PEG HS [facility] Levothyroxine Sodium (Synthroid) 50 mcg PEG 0630 [facility] Metoclopramide HCl (Reglan) 10 mg IVPB Q6 [facility] Last Admin: 09/20/17 13:56 Dose: 10 mg Metolazone (Zaroxolyn) 10 mg PEG MWF [facility] Metolazone (Zaroxolyn) 10 mg PEG QWK [facility] Potassium Phos/Sodium Phos (Neutra-Phos) 1 pkt PEG TID [facility] Last Admin: 09/20/17 13:57 Dose: 1 pkt Rosuvastatin Calcium (Crestor) 5 mg PEG HS [facility] Results - Vital Signs Recent Vital Signs: Last Vital Signs Temp 98.4 F 09/20/17 08:33 Pulse 60 09/20/17 08:33 Resp 20 09/20/17 08:33 BP 93/59 L 09/20/17 08:33 Pulse Ox 99 09/20/17 08:33 - Labs Result Diagrams: 09/19/17 19:16 09/19/17 19:16 Labs: Laboratory Results - last 24 hr 09/19/17 09/19/17 09/19/17 19:16 19:16 19:16 WBC 6.0 D RBC 3.11 L Hgb 8.8 L Hct 27.1 L MCV 87.2 MCH 28.2 MCHC 32.3 L RDW 17.5 H Plt Count 143 MPV 9.6 Neut % (Auto) 58.2 Lymph % (Auto) 27.7 [place] % (Auto) 7.2 Eos % (Auto) 6.5 H Baso % (Auto) 0.4 Neut # (Auto) 3.5 Lymph # (Auto) 1.7 [place] # (Auto) 0.4 Eos # (Auto) 0.4 Baso # (Auto) 0.0 PT 13.5 H INR 1.2 APTT 42 H Sodium 137 Potassium 3.9 Chloride 93 L Carbon Dioxide 27 Anion Gap 21 H BUN 33 H Creatinine 2.8 H Est GFR ( Amer) 28 Est GFR (Non-Af Amer) 23 POC Glucose (mg/dL) Random Glucose 126 H Calcium 8.6 Total Bilirubin 0.7 AST 45 ALT 27 Alkaline Phosphatase 485 H D Troponin I 0.0210 Total Protein 8.5 H Albumin 3.0 L D Globulin 5.6 H Albumin/Globulin Ratio 0.5 L 09/20/17 09/20/17 09/20/17 06:31 08:07 11:20 WBC RBC Hgb Hct MCV MCH MCHC RDW Plt Count MPV Neut % (Auto) Lymph % (Auto) [place] % (Auto) Eos % (Auto) Baso % (Auto) Neut # (Auto) Lymph # (Auto) [place] # (Auto) Eos # (Auto) Baso # (Auto) PT INR APTT Sodium Potassium Chloride Carbon Dioxide Anion Gap BUN Creatinine Est GFR ( Amer) Est GFR (Non-Af Amer) POC Glucose (mg/dL) 109 89 94 Random Glucose Calcium Total Bilirubin AST ALT Alkaline Phosphatase Troponin I Total Protein Albumin Globulin Albumin/Globulin Ratio
--- NOTE | 2017-09-20 16:20 | CARD ---
APPROVED REPORT EKG Measurement Heart [id number] <Conclusion> Normal sinus rhythm T wave abnormality, consider anterior ischemia Abnormal ECG
--- NOTE | 2017-09-20 16:36 | CP.PCM.PCO ---
Physician Communication Note - Physician Communication Note Physician Communication Note: abd soft/nontender,PEDRO with soft stool,supp ordered,will monitor
--- NOTE | 2017-09-20 18:21 | CP.PCM.CON ---
History of Present Illness - History of Present Illness History of Present Illness: 62yo M with PMHx of CAD, HTN, DM, ESRD on HD, CHF, Hypothyroid, COPD, HLD sent [facility] by Dr. Dada Hernandez for evaluation of possible Left Arm AV Fistula infection. Patient had HD done today and experienced bleeding from the access site. Patient is responsive to verbal and tactile stilmuli and responds appropriately to some questions by nodding. Upon reviewing chart from [facility], patient had labs obtained on 09/13/17 with no leukocytosis and without any reported febrile episodes. 12-point ROS unable to be obtained due to patient's current condition PMHx: CAD, HTN, DM, ESRD on HD, CHF, Hypothyroid, COPD, HLD PSHx: Tracheostomy 08/14/17, Bilroth 1 secondary to penetrating Abd wound, L AVF, Cardiac stent x2, Gastrostomy tube Social Hx: Former smoker; No reported ETOH use; No reported illicit drugs Family Hx: unknown Allergy: Tetanus and diphtheria toxoids Past Patient History - Infectious Disease Hx of Infectious Diseases: None - Tetanus Immunizations Tetanus Immunization: Unknown - Past Medical History & Family History Past Medical History?: Yes - Past Social History Smoking Status: Former Smoker - CARDIAC Hx Cardiac Disorders: Yes Hx Congestive Heart Failure: Yes Hx Hypercholesterolemia: Yes Hx Hypertension: Yes - PULMONARY Hx Chronic Obstructive Pulmonary Disease (COPD): Yes - NEUROLOGICAL Hx Transient Ischemic Attacks (TIA): Yes - HEENT Hx HEENT Problems: Yes (WEARS RX GLASSES) Hx Cataracts: Yes (RIGHT EYE) Other/Comment: left strabismus - RENAL Hx Chronic Kidney Disease: Yes - ENDOCRINE/METABOLIC Hx Hypothyroidism: Yes - HEMATOLOGICAL/ONCOLOGICAL Hx Anemia: Yes (BLOOD TRANSFUSION-ACCIDENTAL DISLODGEMENT OF NEEDLE TO SHUNT LOST 2 L OF BL) - INTEGUMENTARY Hx Dermatological Problems: Yes Hx Cellulitis: Yes (L upper limb) Other/Comment: dry itchy skin - MUSCULOSKELETAL/RHEUMATOLOGICAL Hx Arthritis: Yes (KNEE) - GASTROINTESTINAL Hx Gastrointestinal Disorders: Yes (ASCITES 10-01-14,GASTROENTERITIS) Hx Ulcer: Yes Other/Comment: CONSTIPATION, hx c dif 09/16/15. Maltruition - GENITOURINARY/GYNECOLOGICAL Hx Genitourinary Disorders: Yes Other/Comment: oliguria - PSYCHIATRIC Hx Substance Use: No - SURGICAL HISTORY Hx Coronary Stent: Yes - ANESTHESIA Hx Anesthesia: Yes Hx Anesthesia Reactions: No Hx Malignant Hyperthermia: No Meds Allergies/Adverse Reactions: Allergies Allergy/AdvReac Type Severity Reaction Status Date / Time tetanus and diphtheria Allergy RASH Verified 09/19/17 17:57 toxoids [tetanus & diphtheria toxoids] - Medications Medications: Current Medications Acetaminophen (Tylenol 650mg/20.3ml Solution Ud) 650 mg PEG Q6H PRN PRN Reason: Fever >100.4 F Clonidine HCl (Catapres) 0.3 mg PEG Q8 [facility] Last Admin: 09/20/17 16:35 Dose: 0.3 mg Clopidogrel Bisulfate (Plavix) 75 mg PEG DAILY [facility] Last Admin: 09/20/17 11:49 Dose: 75 mg Enoxaparin Sodium (Lovenox) 30 mg SC DAILY [facility] Epoetin Alan (Procrit) 10,000 unit IV MWF [facility] Stop: 10/03/17 09:01 Famotidine (Pepcid) 20 mg PEG HS [facility] Guaifenesin (Robitussin) 100 mg PEG Q6H PRN PRN Reason: Cough Hydralazine HCl (Apresoline) 10 mg IVP Q6 PRN PRN Reason: Systolic Blood Pressure Hydromorphone HCl (Dilaudid) 0.5 mg IVP Q8 PRN PRN Reason: Pain, severe (8-10) Piperacillin Sod/Tazobactam Sod (Zosyn 2.25 Gm Iv Premix) 2.25 gm in 50 mls @ 100 mls/hr IVPB Q12H [facility] Last Admin: 09/20/17 13:30 Dose: 100 mls/hr Dextrose (Dextrose 5% In Water 1000 Ml) 1,000 mls @ 40 mls/hr IV .Q24H [facility] Insulin Aspart (Novolog) 0 unit SC ACHS [facility] PRN Reason: Protocol Ipratropium [place] (Atrovent) 2.5 mg IH RQ6 [facility] Last Admin: 09/20/17 13:18 Dose: 2.5 mg Isosorbide Dinitrate (Isordil) 20 mg PEG Q8 [facility] Last Admin: 09/20/17 16:35 Dose: 20 mg Lactic Acid (Lac-Hydrin 12% Lotion (225 G)) 1 gm TOP QSHIFT [facility] Last Admin: 09/20/17 13:57 Dose: 1 dose Lactulose (Enulose) 20 gm PEG HS [facility] Levothyroxine Sodium (Synthroid) 50 mcg PEG 0630 [facility] Metoclopramide HCl (Reglan) 10 mg IVPB Q6 [facility] Last Admin: 09/20/17 17:52 Dose: 10 mg Metolazone (Zaroxolyn) 10 mg PEG MWF [facility] Metolazone (Zaroxolyn) 10 mg PEG QWK [facility] Potassium Phos/Sodium Phos (Neutra-Phos) 1 pkt PEG TID [facility] Last Admin: 09/20/17 17:52 Dose: 1 pkt Rosuvastatin Calcium (Crestor) 5 mg PEG HS [facility] Results - Vital Signs Recent Vital Signs: Last Vital Signs Temp 98.6 F 09/20/17 15:30 Pulse 68 09/20/17 15:30 Resp 20 09/20/17 15:30 BP 164/73 H 09/20/17 15:30 Pulse Ox 100 09/20/17 15:30 - Labs Result Diagrams: 09/19/17 19:16 09/19/17 19:16 Labs: Laboratory Results - last 24 hr 09/19/17 09/19/17 09/19/17 19:16 19:16 19:16 WBC 6.0 D RBC 3.11 L Hgb 8.8 L Hct 27.1 L MCV 87.2 MCH 28.2 MCHC 32.3 L RDW 17.5 H Plt Count 143 MPV 9.6 Neut % (Auto) 58.2 Lymph % (Auto) 27.7 Porter % (Auto) 7.2 Eos % (Auto) 6.5 H Baso % (Auto) 0.4 Neut # (Auto) 3.5 Lymph # (Auto) 1.7 Porter # (Auto) 0.4 Eos # (Auto) 0.4 Baso # (Auto) 0.0 PT 13.5 H INR 1.2 APTT 42 H Sodium 137 Potassium 3.9 Chloride 93 L Carbon Dioxide 27 Anion Gap 21 H BUN 33 H Creatinine 2.8 H Est GFR ( Amer) 28 Est GFR (Non-Af Amer) 23 POC Glucose (mg/dL) Random Glucose 126 H Calcium 8.6 Phosphorus Magnesium Total Bilirubin 0.7 GGT AST 45 ALT 27 Alkaline Phosphatase 485 H D Troponin I 0.0210 Total Protein 8.5 H Albumin 3.0 L D Globulin 5.6 H Albumin/Globulin Ratio 0.5 L 09/20/17 09/20/17 09/20/17 06:31 08:07 11:20 WBC RBC Hgb Hct MCV MCH MCHC RDW Plt Count MPV Neut % (Auto) Lymph % (Auto) [place] % (Auto) Eos % (Auto) Baso % (Auto) Neut # (Auto) Lymph # (Auto) Porter # (Auto) Eos # (Auto) Baso # (Auto) PT INR APTT Sodium Potassium Chloride Carbon Dioxide Anion Gap BUN Creatinine Est GFR ( Amer) Est GFR (Non-Af Amer) POC Glucose (mg/dL) 109 89 94 Random Glucose Calcium Phosphorus Magnesium Total Bilirubin GGT AST ALT Alkaline Phosphatase Troponin I Total Protein Albumin Globulin Albumin/Globulin Ratio 09/20/17 09/20/17 16:20 17:17 WBC RBC Hgb Hct MCV MCH MCHC RDW Plt Count MPV Neut % (Auto) Lymph % (Auto) [place] % (Auto) Eos % (Auto) Baso % (Auto) Neut # (Auto) Lymph # (Auto) Porter # (Auto) Eos # (Auto) Baso # (Auto) PT INR APTT Sodium Potassium Chloride Carbon Dioxide Anion Gap BUN Creatinine Est GFR ( Amer) Est GFR (Non-Af Amer) POC Glucose (mg/dL) 73 Random Glucose Calcium Phosphorus 7.6 H Magnesium 1.6 Total Bilirubin GGT 136 H AST ALT Alkaline Phosphatase Troponin I Total Protein Albumin Globulin Albumin/Globulin Ratio
--- NOTE | 2017-09-20 18:28 | US ---
HISTORY: Elevated ALK PHOS, R/O biliary obstruction COMPARISON: September 20, 2017. CT abdomen and pelvis TECHNIQUE: Sonographic evaluation of the abdomen. FINDINGS: LIVER: Measures 13.8 cm. Hepatopedal blood flow. Fatty infiltration manifest ultrasonographically as increased echogenicity of the liver parenchyma. No mass. No intrahepatic bile duct dilatation. Nodular contour to the liver suggests cirrhosis/hepatocellular disease. GALLBLADDER: Status post cholecystectomy. No abnormality is seen in the gallbladder fossa. COMMON BILE DUCT: Measures 4.4 mm. No stones. No dilatation. PANCREAS: Obscured by overlying bowel gas. Non diagnostic assessment of the pancreas RIGHT KIDNEY: Measures 3.5 x 4.1 x 7.9cm. Atrophic right kidney, echo characteristics consistent with medical renal disease LEFT KIDNEY: Measures 3.5 x 3.8 x 8.4cm. Atrophic right kidney, echo characteristics compatible with medical renal disease. SPLEEN: Normal in size and contour. No mass. AORTA: No aneurysmal dilatation. IVC: Unremarkable. OTHER FINDINGS: Small right pleural effusion is incompletely visualized IMPRESSION: Cirrhotic liver without focal abnormality. No evidence of intrahepatic or common bile duct dilatation. Additional benign and/or incidental findings described above.
[2017-09-21] MEDS: Piperacill/Tazo 2.25gm in Dex 2.25 GM/50 ML BAG IVPB SCH ×2 (00:40→12:53)
[2017-09-21] MEDS ORDERED: Micafungin 100 MG in Sodium Chloride 0.9% 100 ML IV ONE (01:00)
[2017-09-21] MEDS: Ipratropium 0.02% Inhal Soln (0.5 mg/2.5 ml) UD IH SCH ×4 (01:35→19:26)
[2017-09-21] MEDS: Levothyroxine 50 MCG TAB PEG SCH (05:42)
[2017-09-21] MEDS: Ammonium Lactate 12% Lotion (225 g) TOP SCH ×3 (07:00→22:03)
[2017-09-21] MEDS: (Novolog) Insulin Aspart, Recombinant 100 u/ml 10 ml vial SC SCH ×4 (08:30→21:47)
[2017-09-21 08:44] LABS: BASO % 0.5 % (0.0-2.0); EOS # 0.4 K/uL (0.0-0.7); EOS % 7.9 % (0.0-4.0); HEMOGLOBIN 8.2 g/dL (12.0-18.0); LYMPH # 1.2 K/uL (1.0-4.3); LYMPH % 24.3 % (20.0-40.0); MEAN CELL VOLUME 86.7 fL (80.0-94.0); MEAN CORPUSCULAR HEMOGLOBIN 28.5 pg (27.0-31.0); MEAN CORPUSCULAR HGB CONC 32.9 g/dL (33.0-37.0); MEAN PLATELET VOLUME 9.7 fL (7.2-11.7); MONO # 0.5 K/uL (0.0-0.8); MONO % 10.5 % (0.0-10.0); NEUT # 2.9 K/uL (1.8-7.0); NEUT % 56.8 % (50.0-75.0); RBC 2.87 Mil/uL (4.40-5.90); RED CELL DISTRIBUTION WIDTH 17.7 % (11.5-14.5); WHITE BLOOD COUNT 5.1 K/uL (4.8-10.8)
[2017-09-21 08:57] LABS: ALB/GLOB RATIO 0.5 (1.0-2.1); ALBUMIN 2.8 g/dL (3.5-5.0); CALCIUM 8.3 mg/dl (8.6-10.4)
[2017-09-21] MEDS: Enoxaparin 30 mg Syringe SC SCH (09:36)
--- NOTE | 2017-09-21 09:36 | CP.PCM.PN ---
Subjective - Date & Time of Evaluation Date of Evaluation: 09/21/17 Time of Evaluation: 07:05 - Subjective Subjective: Surgery Progress note. Dr. Deshpande Pt seen and examined at bedside. No acute events overnight as per nursing staff. Patient nods appropriately to few questions. Denies any abdominal pain. No F/C. Objective - Vital Signs/Intake and Output Vital Signs (last 24 hours): Temp Pulse Resp BP Pulse Ox 98 F 60 20 181/72 H 97 09/21/17 08:05 09/21/17 08:05 09/21/17 08:05 09/21/17 08:05 09/21/17 08:05 Intake and Output: 09/21/17 09/21/17 06:59 18:59 Intake Total 380 Output Total 600 Balance -220 - Medications Medications: Current Medications Acetaminophen (Tylenol 650mg/20.3ml Solution Ud) 650 mg PEG Q6H PRN PRN Reason: Fever >100.4 F Clonidine HCl (Catapres) 0.3 mg PEG Q8 [facility] Last Admin: 09/21/17 05:42 Dose: 0.3 mg Clopidogrel Bisulfate (Plavix) 75 mg PEG DAILY [facility] Last Admin: 09/20/17 11:49 Dose: 75 mg Enoxaparin Sodium (Lovenox) 30 mg SC DAILY [facility] Epoetin Alan (Procrit) 10,000 unit IV MWF [facility] Stop: 10/03/17 09:01 Famotidine (Pepcid) 20 mg PEG HS [facility] Last Admin: 09/20/17 21:23 Dose: 20 mg Guaifenesin (Robitussin) 100 mg PEG Q6H PRN PRN Reason: Cough Hydralazine HCl (Apresoline) 10 mg IVP Q6 PRN PRN Reason: Systolic Blood Pressure Hydromorphone HCl (Dilaudid) 0.5 mg IVP Q8 PRN PRN Reason: Pain, severe (8-10) Piperacillin Sod/Tazobactam Sod (Zosyn 2.25 Gm Iv Premix) 2.25 gm in 50 mls @ 100 mls/hr IVPB Q12H [facility] Last Admin: 09/21/17 00:40 Dose: 100 mls/hr Dextrose (Dextrose 5% In Water 1000 Ml) 1,000 mls @ 40 mls/hr IV .Q24H [facility] Last Admin: 09/20/17 16:50 Dose: 40 mls/hr Vancomycin HCl 500 mg/ Sodium (Chloride) 100 mls @ 100 mls/hr IVPB MWF [facility] PRN Reason: Protocol Stop: 09/26/17 09:01 Insulin Aspart (Novolog) 0 unit SC ACHS [facility] PRN Reason: Protocol Last Admin: 09/20/17 21:29 Dose: Not Given Ipratropium [place] (Atrovent) 2.5 mg IH RQ6 [facility] Last Admin: 09/21/17 08:31 Dose: 2.5 mg Isosorbide Dinitrate (Isordil) 20 mg PEG Q8 [facility] Last Admin: 09/21/17 05:41 Dose: 20 mg Lactic Acid (Lac-Hydrin 12% Lotion (225 G)) 1 gm TOP QSHIFT [facility] Last Admin: 09/20/17 21:28 Dose: 1 dose Lactulose (Enulose) 20 gm PEG HS [facility] Last Admin: 09/20/17 21:23 Dose: 20 gm Levothyroxine Sodium (Synthroid) 50 mcg PEG 0630 [facility] Last Admin: 09/21/17 05:42 Dose: 50 mcg Metoclopramide HCl (Reglan) 10 mg IVPB Q6 [facility] Last Admin: 09/21/17 05:41 Dose: 10 mg Metolazone (Zaroxolyn) 10 mg PEG MWF [facility] Potassium Phos/Sodium Phos (Neutra-Phos) 1 pkt PEG TID [facility] Last Admin: 09/20/17 17:52 Dose: 1 pkt Rosuvastatin Calcium (Crestor) 5 mg PEG HS [facility] Last Admin: 09/20/17 21:23 Dose: 5 mg - Labs Labs: 09/21/17 08:35 09/21/17 08:35 PT 13.5 SECONDS (9.7-12.2) H 09/19/17 19:16 INR 1.2 09/19/17 19:16 APTT 42 SECONDS (21-34) H 09/19/17 19:16 - Constitutional Appears: Non-toxic, No Acute Distress - Head Exam Head Exam: ATRAUMATIC, NORMAL INSPECTION, NORMOCEPHALIC - Eye Exam Eye Exam: EOMI - ENT Exam Additional comments: Tracheostomy in place - Respiratory Exam Respiratory Exam: NORMAL BREATHING PATTERN. absent: Accessory Muscle Use, Respiratory Distress - GI/Abdominal Exam GI & Abdominal Exam: Soft. absent: Distended, Guarding, Rigid, Tenderness, Rebound Additional comments: Gastrostomy tube in place, to suction with bilious output noted. Currently clamped. - Extremities Exam Extremities Exam: Normal Inspection. absent: Calf Tenderness Additional comments: Left arm AVF site with no evidence of infection - Neurological Exam Neurological Exam: Awake Additional comments: Tracheostomy in place Assessment and Plan - Assessment and Plan (Free Text) Assessment: 62yo M with bilious residuals from gastrostomy tube. Also consulted for r/o Left arm AVF infection. Plan: - No evidence of left arm AVF infection - Patient has a soft abdomen and having BMs, however, has bilious residuals noted from Gastrostomy tube. - Hold gastrostomy tube feedings for now - f/u GI recs - will continue to monitor. Further recs as per Dr. Charlee Gerber PGY1 surgery pager: [phone]
[2017-09-21] MEDS: Potassium & Sodium Phosphate PEG SCH ×3 (09:37→17:41)
[2017-09-21] MEDS: metOLazone 5 MG TAB PEG SCH (09:37)
--- NOTE | 2017-09-21 13:15 | CP.PCM.PN ---
Subjective - Date & Time of Evaluation Date of Evaluation: 09/21/17 Time of Evaluation: 07:40 - Subjective Subjective: clinically same Objective - Vital Signs/Intake and Output Vital Signs (last 24 hours): Temp Pulse Resp BP Pulse Ox 98 F 64 20 181/72 H 97 09/21/17 08:05 09/21/17 09:42 09/21/17 08:05 09/21/17 08:05 09/21/17 08:05 Intake and Output: 09/21/17 09/21/17 06:59 18:59 Intake Total 380 Output Total 600 Balance -220 - Medications Medications: Current Medications Acetaminophen (Tylenol 650mg/20.3ml Solution Ud) 650 mg PEG Q6H PRN PRN Reason: Fever >100.4 F Clonidine HCl (Catapres) 0.3 mg PEG Q8 [facility] Last Admin: 09/21/17 05:42 Dose: 0.3 mg Clopidogrel Bisulfate (Plavix) 75 mg PEG DAILY [facility] Last Admin: 09/21/17 09:37 Dose: 75 mg Enoxaparin Sodium (Lovenox) 30 mg SC DAILY [facility] Last Admin: 09/21/17 09:36 Dose: 30 mg Epoetin Alan (Procrit) 10,000 unit IV F [facility] Stop: 10/03/17 09:01 Famotidine (Pepcid) 20 mg PEG HS [facility] Last Admin: 09/20/17 21:23 Dose: 20 mg Guaifenesin (Robitussin) 100 mg PEG Q6H PRN PRN Reason: Cough Hydralazine HCl (Apresoline) 10 mg IVP Q6 PRN PRN Reason: Systolic Blood Pressure Hydromorphone HCl (Dilaudid) 0.5 mg IVP Q8 PRN PRN Reason: Pain, severe (8-10) Piperacillin Sod/Tazobactam Sod (Zosyn 2.25 Gm Iv Premix) 2.25 gm in 50 mls @ 100 mls/hr IVPB Q12H [facility] Last Admin: 09/21/17 12:53 Dose: Not Given Dextrose (Dextrose 5% In Water 1000 Ml) 1,000 mls @ 40 mls/hr IV .Q24H [facility] Last Admin: 09/20/17 16:50 Dose: 40 mls/hr Vancomycin HCl 500 mg/ Sodium (Chloride) 100 mls @ 100 mls/hr IVPB MWF [facility] PRN Reason: Protocol Stop: 09/26/17 09:01 Last Admin: 09/21/17 09:00 Dose: Not Given Insulin Aspart (Novolog) 0 unit SC ACHS [facility] PRN Reason: Protocol Last Admin: 09/21/17 12:44 Dose: Not Given Ipratropium [place] (Atrovent) 2.5 mg IH RQ6 [facility] Last Admin: 09/21/17 08:31 Dose: 2.5 mg Isosorbide Dinitrate (Isordil) 20 mg PEG Q8 [facility] Last Admin: 09/21/17 05:41 Dose: 20 mg Lactic Acid (Lac-Hydrin 12% Lotion (225 G)) 1 gm TOP QSHIFT [facility] Last Admin: 09/21/17 07:00 Dose: 1 dose Lactulose (Enulose) 20 gm PEG HS [facility] Last Admin: 09/20/17 21:23 Dose: 20 gm Levothyroxine Sodium (Synthroid) 50 mcg PEG 0630 [facility] Last Admin: 09/21/17 05:42 Dose: 50 mcg Metoclopramide HCl (Reglan) 10 mg IVPB Q6 [facility] Last Admin: 09/21/17 12:54 Dose: Not Given Metolazone (Zaroxolyn) 10 mg PEG MWF [facility] Last Admin: 09/21/17 09:37 Dose: 10 mg Potassium Phos/Sodium Phos (Neutra-Phos) 1 pkt PEG TID [facility] Last Admin: 09/21/17 09:37 Dose: 1 pkt Rosuvastatin Calcium (Crestor) 5 mg PEG HS [facility] Last Admin: 09/20/17 21:23 Dose: 5 mg - Labs Labs: 09/21/17 08:35 09/21/17 08:35 PT 13.5 SECONDS (9.7-12.2) H 09/19/17 19:16 INR 1.2 09/19/17 19:16 APTT 42 SECONDS (21-34) H 09/19/17 19:16 - Constitutional Appears: Well - Head Exam Head Exam: ATRAUMATIC, NORMAL INSPECTION, NORMOCEPHALIC - Eye Exam Eye Exam: EOMI, Normal appearance, PERRL Pupil Exam: NORMAL ACCOMODATION, PERRL - ENT Exam ENT Exam: Mucous Membranes Moist, Normal Exam - Neck Exam Neck Exam: Full ROM, Normal Inspection. absent: Lymphadenopathy - Respiratory Exam Respiratory Exam: Decreased Breath Sounds - Cardiovascular Exam Cardiovascular Exam: REGULAR RHYTHM, +S1, +S2 - GI/Abdominal Exam GI & Abdominal Exam: Soft, Diminished Bowel Sounds - Rectal Exam Rectal Exam: Deferred
[2017-09-21] MEDS: Epoetin Alfa 10,000 unit/ml Dialysis IV SCH (13:55)
--- NOTE | 2017-09-21 17:06 | CP.PCM.PN ---
Subjective - Date & Time of Evaluation Date of Evaluation: 09/21/17 Time of Evaluation: 17:06 Objective - Vital Signs/Intake and Output Vital Signs (last 24 hours): Temp Pulse Resp BP Pulse Ox 97.8 F 55 L 18 122/49 L 98 09/21/17 11:45 09/21/17 14:00 09/21/17 14:00 09/21/17 14:00 09/21/17 14:00 Intake and Output: 09/21/17 09/21/17 06:59 18:59 Intake Total 380 370 Output Total 600 200 Balance -220 170 - Medications Medications: Current Medications Acetaminophen (Tylenol 650mg/20.3ml Solution Ud) 650 mg PEG Q6H PRN PRN Reason: Fever >100.4 F Clonidine HCl (Catapres) 0.3 mg PEG Q8 [facility] Last Admin: 09/21/17 15:00 Dose: Not Given Clopidogrel Bisulfate (Plavix) 75 mg PEG DAILY [facility] Last Admin: 09/21/17 09:37 Dose: 75 mg Enoxaparin Sodium (Lovenox) 30 mg SC DAILY [facility] Last Admin: 09/21/17 09:36 Dose: 30 mg Epoetin [place] (Procrit) 10,000 unit IV MWF [facility] Stop: 10/03/17 09:01 Last Admin: 09/21/17 13:55 Dose: 10,000 unit Famotidine (Pepcid) 20 mg PEG HS [facility] Last Admin: 09/20/17 21:23 Dose: 20 mg Guaifenesin (Robitussin) 100 mg PEG Q6H PRN PRN Reason: Cough Hydralazine HCl (Apresoline) 10 mg IVP Q6 PRN PRN Reason: Systolic Blood Pressure Hydromorphone HCl (Dilaudid) 0.5 mg IVP Q8 PRN PRN Reason: Pain, severe (8-10) Piperacillin Sod/Tazobactam Sod (Zosyn 2.25 Gm Iv Premix) 2.25 gm in 50 mls @ 100 mls/hr IVPB Q12H [facility] Last Admin: 09/21/17 12:53 Dose: Not Given Dextrose (Dextrose 5% In Water 1000 Ml) 1,000 mls @ 40 mls/hr IV .Q24H [facility] Last Admin: 09/20/17 16:50 Dose: 40 mls/hr Vancomycin HCl 500 mg/ Sodium (Chloride) 100 mls @ 100 mls/hr IVPB MWF [facility] PRN Reason: Protocol Stop: 09/26/17 09:01 Last Admin: 09/21/17 09:00 Dose: Not Given Insulin Aspart (Novolog) 0 unit SC ACHS [facility] PRN Reason: Protocol Last Admin: 09/21/17 12:44 Dose: Not Given Ipratropium [place] (Atrovent) 2.5 mg IH RQ6 [facility] Last Admin: 09/21/17 14:05 Dose: Not Given Isosorbide Dinitrate (Isordil) 20 mg PEG Q8 [facility] Last Admin: 09/21/17 15:00 Dose: Not Given Lactic Acid (Lac-Hydrin 12% Lotion (225 G)) 1 gm TOP QSHIFT [facility] Last Admin: 09/21/17 15:00 Dose: Not Given Lactulose (Enulose) 20 gm PEG HS [facility] Last Admin: 09/20/17 21:23 Dose: 20 gm Levothyroxine Sodium (Synthroid) 50 mcg PEG 0630 [facility] Last Admin: 09/21/17 05:42 Dose: 50 mcg Metoclopramide HCl (Reglan) 10 mg IVPB Q6 [facility] Last Admin: 09/21/17 12:54 Dose: Not Given Metolazone (Zaroxolyn) 10 mg PEG MWF [facility] Last Admin: 09/21/17 09:37 Dose: 10 mg Potassium Phos/Sodium Phos (Neutra-Phos) 1 pkt PEG TID [facility] Last Admin: 09/21/17 15:00 Dose: Not Given Rosuvastatin Calcium (Crestor) 5 mg PEG HS [facility] Last Admin: 09/20/17 21:23 Dose: 5 mg - Labs Labs: 09/21/17 08:35 09/21/17 08:35 PT 13.5 SECONDS (9.7-12.2) H 09/19/17 19:16 INR 1.2 09/19/17 19:16 APTT 42 SECONDS (21-34) H 09/19/17 19:16
--- NOTE | 2017-09-21 17:33 | CP.PCM.PN ---
Subjective - Date & Time of Evaluation Date of Evaluation: 09/21/17 Time of Evaluation: 17:29 - Subjective Subjective: Mental status is unchanged. Patient is alert but not communicative. Objective - Vital Signs/Intake and Output Vital Signs (last 24 hours): Temp Pulse Resp BP Pulse Ox 97.8 F 55 L 18 122/49 L 98 09/21/17 11:45 09/21/17 14:00 09/21/17 14:00 09/21/17 14:00 09/21/17 14:00 Intake and Output: 09/21/17 09/21/17 06:59 18:59 Intake Total 380 370 Output Total 600 200 Balance -220 170 - Medications Medications: Current Medications Acetaminophen (Tylenol 650mg/20.3ml Solution Ud) 650 mg PEG Q6H PRN PRN Reason: Fever >100.4 F Clonidine HCl (Catapres) 0.3 mg PEG Q8 [facility] Last Admin: 09/21/17 15:00 Dose: Not Given Clopidogrel Bisulfate (Plavix) 75 mg PEG DAILY [facility] Last Admin: 09/21/17 09:37 Dose: 75 mg Enoxaparin Sodium (Lovenox) 30 mg SC DAILY [facility] Last Admin: 09/21/17 09:36 Dose: 30 mg Epoetin Alan (Procrit) 10,000 unit IV MWF [facility] Stop: 10/03/17 09:01 Last Admin: 09/21/17 13:55 Dose: 10,000 unit Famotidine (Pepcid) 20 mg PEG HS [facility] Last Admin: 09/20/17 21:23 Dose: 20 mg Guaifenesin (Robitussin) 100 mg PEG Q6H PRN PRN Reason: Cough Hydralazine HCl (Apresoline) 10 mg IVP Q6 PRN PRN Reason: Systolic Blood Pressure Hydromorphone HCl (Dilaudid) 0.5 mg IVP Q8 PRN PRN Reason: Pain, severe (8-10) Piperacillin Sod/Tazobactam Sod (Zosyn 2.25 Gm Iv Premix) 2.25 gm in 50 mls @ 100 mls/hr IVPB Q12H [facility] Last Admin: 09/21/17 12:53 Dose: Not Given Dextrose (Dextrose 5% In Water 1000 Ml) 1,000 mls @ 40 mls/hr IV .Q24H [facility] Last Admin: 09/20/17 16:50 Dose: 40 mls/hr Vancomycin HCl 500 mg/ Sodium (Chloride) 100 mls @ 100 mls/hr IVPB MWF [facility] PRN Reason: Protocol Stop: 09/26/17 09:01 Last Admin: 09/21/17 09:00 Dose: Not Given Insulin Aspart (Novolog) 0 unit SC ACHS [facility] PRN Reason: Protocol Last Admin: 09/21/17 12:44 Dose: Not Given Ipratropium [place] (Atrovent) 2.5 mg IH RQ6 [facility] Last Admin: 09/21/17 14:05 Dose: Not Given Isosorbide Dinitrate (Isordil) 20 mg PEG Q8 [facility] Last Admin: 09/21/17 15:00 Dose: Not Given Lactic Acid (Lac-Hydrin 12% Lotion (225 G)) 1 gm TOP QSHIFT [facility] Last Admin: 09/21/17 15:00 Dose: Not Given Lactulose (Enulose) 20 gm PEG HS [facility] Last Admin: 09/20/17 21:23 Dose: 20 gm Levothyroxine Sodium (Synthroid) 50 mcg PEG 0630 [facility] Last Admin: 09/21/17 05:42 Dose: 50 mcg Metoclopramide HCl (Reglan) 10 mg IVPB Q6 [facility] Last Admin: 09/21/17 12:54 Dose: Not Given Metolazone (Zaroxolyn) 10 mg PEG MWF [facility] Last Admin: 09/21/17 09:37 Dose: 10 mg Potassium Phos/Sodium Phos (Neutra-Phos) 1 pkt PEG TID [facility] Last Admin: 09/21/17 15:00 Dose: Not Given Rosuvastatin Calcium (Crestor) 5 mg PEG HS [facility] Last Admin: 09/20/17 21:23 Dose: 5 mg - Labs Labs: 09/21/17 08:35 09/21/17 08:35 PT 13.5 SECONDS (9.7-12.2) H 09/19/17 19:16 INR 1.2 09/19/17 19:16 APTT 42 SECONDS (21-34) H 09/19/17 19:16 - Constitutional Appears: No Acute Distress - Head Exam Head Exam: ATRAUMATIC, NORMOCEPHALIC - Eye Exam Eye Exam: EOMI, PERRL - Neck Exam Neck Exam: absent: Lymphadenopathy, Thyromegaly - Respiratory Exam Respiratory Exam: NORMAL BREATHING PATTERN. absent: Rales, Rhonchi, Wheezes - Cardiovascular Exam Cardiovascular Exam: REGULAR RHYTHM, +S1, +S2. absent: Gallop, Rubs, Murmur - GI/Abdominal Exam GI & Abdominal Exam: Soft, Normal Bowel Sounds. absent: Tenderness, Mass, Organomegaly - Rectal Exam Rectal Exam: Deferred - Extremities Exam Extremities Exam: absent: Calf Tenderness, Pedal Edema Assessment and Plan (1) Small bowel obstruction Assessment & Plan: CT scan without contrast did not document obstruction. Nevertheless, G tube output was 800 cc yesterday. The abdomen is less distended today. Potassium and magnesium levels are normal; phosphorous was elevated, presumably due to renal insufficiency. Will check abdominal x-ray and repeat CT scan with oral contrast. Status: Acute
--- NOTE | 2017-09-21 18:53 | CP.PCM.PN ---
Subjective - Date & Time of Evaluation Date of Evaluation: 09/21/17 Time of Evaluation: 10:00 - Subjective Subjective: afebrileAV fistula so far stable IV antibiotics reordered on CPAP remains confused Objective - Vital Signs/Intake and Output Vital Signs (last 24 hours): Temp Pulse Resp BP Pulse Ox 97.8 F 55 L 18 122/49 L 98 09/21/17 11:45 09/21/17 14:00 09/21/17 14:00 09/21/17 14:00 09/21/17 14:00 Intake and Output: 09/21/17 09/21/17 06:59 18:59 Intake Total 380 370 Output Total 600 200 Balance -220 170 - Medications Medications: Current Medications Acetaminophen (Tylenol 650mg/20.3ml Solution Ud) 650 mg PEG Q6H PRN PRN Reason: Fever >100.4 F Clonidine HCl (Catapres) 0.3 mg PEG Q8 [facility] Last Admin: 09/21/17 15:00 Dose: Not Given Clopidogrel Bisulfate (Plavix) 75 mg PEG DAILY [facility] Last Admin: 09/21/17 09:37 Dose: 75 mg Enoxaparin Sodium (Lovenox) 30 mg SC DAILY [facility] Last Admin: 09/21/17 09:36 Dose: 30 mg Epoetin Alan (Procrit) 10,000 unit IV F [facility] Stop: 10/03/17 09:01 Last Admin: 09/21/17 13:55 Dose: 10,000 unit Famotidine (Pepcid) 20 mg PEG HS [facility] Last Admin: 09/20/17 21:23 Dose: 20 mg Guaifenesin (Robitussin) 100 mg PEG Q6H PRN PRN Reason: Cough Hydralazine HCl (Apresoline) 10 mg IVP Q6 PRN PRN Reason: Systolic Blood Pressure Hydromorphone HCl (Dilaudid) 0.5 mg IVP Q8 PRN PRN Reason: Pain, severe (8-10) Piperacillin Sod/Tazobactam Sod (Zosyn 2.25 Gm Iv Premix) 2.25 gm in 50 mls @ 100 mls/hr IVPB Q12H [facility] Last Admin: 09/21/17 12:53 Dose: Not Given Dextrose (Dextrose 5% In Water 1000 Ml) 1,000 mls @ 40 mls/hr IV .Q24H [facility] Last Admin: 09/21/17 16:45 Dose: 40 mls/hr Vancomycin HCl 500 mg/ Sodium (Chloride) 100 mls @ 100 mls/hr IVPB MWF [facility] PRN Reason: Protocol Stop: 09/26/17 09:01 Last Admin: 09/21/17 09:00 Dose: Not Given Insulin Aspart (Novolog) 0 unit SC ACHS [facility] PRN Reason: Protocol Last Admin: 09/21/17 16:55 Dose: Not Given Ipratropium [place] (Atrovent) 2.5 mg IH RQ6 [facility] Last Admin: 09/21/17 14:05 Dose: Not Given Isosorbide Dinitrate (Isordil) 20 mg PEG Q8 [facility] Last Admin: 09/21/17 15:00 Dose: Not Given Lactic Acid (Lac-Hydrin 12% Lotion (225 G)) 1 gm TOP QSHIFT [facility] Last Admin: 09/21/17 15:00 Dose: Not Given Lactulose (Enulose) 20 gm PEG HS [facility] Last Admin: 09/20/17 21:23 Dose: 20 gm Levothyroxine Sodium (Synthroid) 50 mcg PEG 0630 [facility] Last Admin: 09/21/17 05:42 Dose: 50 mcg Metoclopramide HCl (Reglan) 10 mg IVPB Q6 [facility] Last Admin: 09/21/17 17:40 Dose: 10 mg Metolazone (Zaroxolyn) 10 mg PEG MWF [facility] Last Admin: 09/21/17 09:37 Dose: 10 mg Potassium Phos/Sodium Phos (Neutra-Phos) 1 pkt PEG TID [facility] Last Admin: 09/21/17 17:41 Dose: 1 pkt Rosuvastatin Calcium (Crestor) 5 mg PEG HS [facility] Last Admin: 09/20/17 21:23 Dose: 5 mg - Labs Labs: 09/21/17 08:35 09/21/17 08:35 PT 13.5 SECONDS (9.7-12.2) H 09/19/17 19:16 INR 1.2 09/19/17 19:16 APTT 42 SECONDS (21-34) H 09/19/17 19:16 - Constitutional Appears: Confused, Cachectic, Chronically Ill - Head Exam Head Exam: NORMOCEPHALIC - Eye Exam Eye Exam: PERRL. absent: Scleral icterus - ENT Exam ENT Exam: Mucous Membranes Dry - Neck Exam Neck Exam: absent: Lymphadenopathy - Respiratory Exam Respiratory Exam: Decreased Breath Sounds, Prolonged Expiratory Phase, Rhonchi - Cardiovascular Exam Cardiovascular Exam: REGULAR RHYTHM, +S1, +S2 - GI/Abdominal Exam GI & Abdominal Exam: Distended, Soft. absent: Tenderness - Rectal Exam Rectal Exam: Deferred - Exam Exam: NORMAL INSPECTION - Extremities Exam Extremities Exam: Pedal Edema - Back Exam Back Exam: absent: CVA tenderness (L), CVA tenderness (R) - Neurological Exam Neurological Exam: Altered Neuro motor strength exam: Left Upper Extremity: 3, Right Upper Extremity: 3, Left Lower Extremity: 3, Right Lower Extremity: 3 - Psychiatric Exam Psychiatric exam: Depressed Assessment and Plan (1) Surgical arteriovenous fistula hemorrhage Status: Acute (2) Altered mental status Status: Acute - Assessment and Plan (Free Text) Assessment: pneumonia resp failure sepsis malfunctioning AV fistula ESRD Encephalopathy cont IV antibiotics consider CT chest pulm on board
[2017-09-22] MEDS: Piperacill/Tazo 2.25gm in Dex 2.25 GM/50 ML BAG IVPB SCH ×2 (00:25→12:05)
[2017-09-22] MEDS: Ipratropium 0.02% Inhal Soln (0.5 mg/2.5 ml) UD IH SCH ×5 (01:29→20:02)
[2017-09-22] MEDS: Levothyroxine 50 MCG TAB PEG SCH (05:47)
[2017-09-22] MEDS: Ammonium Lactate 12% Lotion (225 g) TOP SCH ×3 (05:53→21:13)
[2017-09-22] MEDS: (Novolog) Insulin Aspart, Recombinant 100 u/ml 10 ml vial SC SCH ×4 (08:12→18:09)
--- NOTE | 2017-09-22 08:40 | CP.PCM.PN ---
Subjective - Date & Time of Evaluation Date of Evaluation: 09/22/17 Time of Evaluation: 08:38 - Subjective Subjective: Vascular Surgery Progress Note For Dr. Deshpande This 62M was seen and examined at bedside. No acute events overnight. Per nursing staff yesterday following a G-Tube clamping for 1 hour there was 200 cc bile suctioned from his G-Tube. Today the belly is soft, he will be going for a CT with PO contrast. Objective - Vital Signs/Intake and Output Vital Signs (last 24 hours): Temp Pulse Resp BP Pulse Ox 100.5 F H 64 20 154/56 H 100 09/22/17 08:20 09/22/17 08:20 09/22/17 08:20 09/22/17 08:20 09/22/17 08:20 Intake and Output: 09/22/17 09/22/17 06:59 18:59 Intake Total 320 320 Output Total 150 100 Balance 170 220 - Medications Medications: Current Medications Acetaminophen (Tylenol 650mg/20.3ml Solution Ud) 650 mg PEG Q6H PRN PRN Reason: Fever >100.4 F Clonidine HCl (Catapres) 0.3 mg PEG Q8 [facility] Last Admin: 09/22/17 05:47 Dose: 0.3 mg Clopidogrel Bisulfate (Plavix) 75 mg PEG DAILY [facility] Last Admin: 09/21/17 09:37 Dose: 75 mg Enoxaparin Sodium (Lovenox) 30 mg SC DAILY [facility] Last Admin: 09/21/17 09:36 Dose: 30 mg Epoetin Alan (Procrit) 10,000 unit IV MWF [facility] Stop: 10/03/17 09:01 Last Admin: 09/21/17 13:55 Dose: 10,000 unit Famotidine (Pepcid) 20 mg PEG HS [facility] Last Admin: 09/21/17 21:47 Dose: 20 mg Guaifenesin (Robitussin) 100 mg PEG Q6H PRN PRN Reason: Cough Hydralazine HCl (Apresoline) 10 mg IVP Q6 PRN PRN Reason: Systolic Blood Pressure Hydromorphone HCl (Dilaudid) 0.5 mg IVP Q8 PRN PRN Reason: Pain, severe (8-10) Piperacillin Sod/Tazobactam Sod (Zosyn 2.25 Gm Iv Premix) 2.25 gm in 50 mls @ 100 mls/hr IVPB Q12H [facility] Last Admin: 09/22/17 00:25 Dose: 100 mls/hr Dextrose (Dextrose 5% In Water 1000 Ml) 1,000 mls @ 40 mls/hr IV .Q24H [facility] Last Admin: 09/21/17 16:45 Dose: 40 mls/hr Vancomycin HCl 500 mg/ Sodium (Chloride) 100 mls @ 100 mls/hr IVPB MWF [facility] PRN Reason: Protocol Stop: 09/26/17 09:01 Last Admin: 09/21/17 15:30 Dose: 100 mls/hr Insulin Aspart (Novolog) 0 unit SC ACHS [facility] PRN Reason: Protocol Last Admin: 09/22/17 08:12 Dose: Not Given Ipratropium [place] (Atrovent) 2.5 mg IH RQ6 [facility] Last Admin: 09/22/17 01:29 Dose: 2.5 mg Isosorbide Dinitrate (Isordil) 20 mg PEG Q8 [facility] Last Admin: 09/22/17 05:47 Dose: 20 mg Lactic Acid (Lac-Hydrin 12% Lotion (225 G)) 1 gm TOP QSHIFT [facility] Last Admin: 09/22/17 05:53 Dose: 1 dose Lactulose (Enulose) 20 gm PEG HS [facility] Last Admin: 09/21/17 21:48 Dose: 20 gm Levothyroxine Sodium (Synthroid) 50 mcg PEG 0630 [facility] Last Admin: 09/22/17 05:47 Dose: 50 mcg Metoclopramide HCl (Reglan) 10 mg IVPB Q6 [facility] Last Admin: 09/22/17 05:47 Dose: 10 mg Metolazone (Zaroxolyn) 10 mg PEG MWF [facility] Last Admin: 09/21/17 09:37 Dose: 10 mg Potassium Phos/Sodium Phos (Neutra-Phos) 1 pkt PEG TID [facility] Last Admin: 09/21/17 17:41 Dose: 1 pkt Rosuvastatin Calcium (Crestor) 5 mg PEG HS [facility] Last Admin: 09/21/17 21:47 Dose: 5 mg - Labs Labs: 09/21/17 08:35 09/21/17 08:35 PT 13.5 SECONDS (9.7-12.2) H 09/19/17 19:16 INR 1.2 09/19/17 19:16 APTT 42 SECONDS (21-34) H 09/19/17 19:16 - Constitutional Appears: Non-toxic, No Acute Distress - Head Exam Head Exam: ATRAUMATIC, NORMAL INSPECTION, NORMOCEPHALIC - Eye Exam Eye Exam: EOMI - ENT Exam Additional comments: Tracheostomy in place - Respiratory Exam Respiratory Exam: NORMAL BREATHING PATTERN. absent: Accessory Muscle Use, Respiratory Distress - GI/Abdominal Exam GI & Abdominal Exam: Soft. absent: Distended, Guarding, Rigid, Tenderness, Rebound Additional comments: Gastrostomy tube in place, to suction with bilious output noted. Currently clamped. - Extremities Exam Extremities Exam: Normal Inspection. absent: Calf Tenderness Additional comments: Left arm AVF site with no evidence of infection Assessment and Plan - Assessment and Plan (Free Text) Assessment: 62yo M with bilious residuals from gastrostomy tube. Also consulted for r/o Left arm AVF infection. Plan: - No evidence of left arm AVF infection - Patient has a soft abdomen and having BMs, however, has bilious residuals noted from Gastrostomy tube. - Hold gastrostomy tube feedings for now - Follow up CT with PO contrast - will continue to monitor. D/W Dr. Charlee Palmer PGY2
[2017-09-22] MEDS: Potassium & Sodium Phosphate PEG SCH ×3 (10:02→18:08)
[2017-09-22] MEDS: Enoxaparin 30 mg Syringe SC SCH (10:02)
--- NOTE | 2017-09-22 10:24 | CP.PCM.PN ---
Subjective - Date & Time of Evaluation Date of Evaluation: 09/22/17 Time of Evaluation: 10:22 - Subjective Subjective: Mental status is unchanged. Objective - Vital Signs/Intake and Output Vital Signs (last 24 hours): Temp Pulse Resp BP Pulse Ox 100.5 F H 64 20 154/56 H 100 09/22/17 08:20 09/22/17 08:20 09/22/17 08:20 09/22/17 08:20 09/22/17 08:20 Intake and Output: 09/22/17 09/22/17 06:59 18:59 Intake Total 320 320 Output Total 150 100 Balance 170 220 - Medications Medications: Current Medications Acetaminophen (Tylenol 650mg/20.3ml Solution Ud) 650 mg PEG Q6H PRN PRN Reason: Fever >100.4 F Clonidine HCl (Catapres) 0.3 mg PEG Q8 [facility] Last Admin: 09/22/17 05:47 Dose: 0.3 mg Clopidogrel Bisulfate (Plavix) 75 mg PEG DAILY [facility] Last Admin: 09/22/17 10:02 Dose: 75 mg Enoxaparin Sodium (Lovenox) 30 mg SC DAILY [facility] Last Admin: 09/22/17 10:02 Dose: 30 mg Epoetin Alan (Procrit) 10,000 unit IV MWF [facility] Stop: 10/03/17 09:01 Last Admin: 09/21/17 13:55 Dose: 10,000 unit Famotidine (Pepcid) 20 mg PEG HS [facility] Last Admin: 09/21/17 21:47 Dose: 20 mg Guaifenesin (Robitussin) 100 mg PEG Q6H PRN PRN Reason: Cough Hydralazine HCl (Apresoline) 10 mg IVP Q6 PRN PRN Reason: Systolic Blood Pressure Hydromorphone HCl (Dilaudid) 0.5 mg IVP Q8 PRN PRN Reason: Pain, severe (8-10) Piperacillin Sod/Tazobactam Sod (Zosyn 2.25 Gm Iv Premix) 2.25 gm in 50 mls @ 100 mls/hr IVPB Q12H [facility] Last Admin: 09/22/17 00:25 Dose: 100 mls/hr Dextrose (Dextrose 5% In Water 1000 Ml) 1,000 mls @ 40 mls/hr IV .Q24H [facility] Last Admin: 09/21/17 16:45 Dose: 40 mls/hr Vancomycin HCl 500 mg/ Sodium (Chloride) 100 mls @ 100 mls/hr IVPB MWF [facility] PRN Reason: Protocol Stop: 09/26/17 09:01 Last Admin: 09/21/17 15:30 Dose: 100 mls/hr Insulin Aspart (Novolog) 0 unit SC ACHS [facility] PRN Reason: Protocol Last Admin: 09/22/17 08:12 Dose: Not Given Ipratropium [place] (Atrovent) 2.5 mg IH RQ6 [facility] Last Admin: 09/22/17 09:21 Dose: 0.5 mg Isosorbide Dinitrate (Isordil) 20 mg PEG Q8 [facility] Last Admin: 09/22/17 05:47 Dose: 20 mg Lactic Acid (Lac-Hydrin 12% Lotion (225 G)) 1 gm TOP QSHIFT [facility] Last Admin: 09/22/17 05:53 Dose: 1 dose Lactulose (Enulose) 20 gm PEG HS [facility] Last Admin: 09/21/17 21:48 Dose: 20 gm Levothyroxine Sodium (Synthroid) 50 mcg PEG 0630 [facility] Last Admin: 09/22/17 05:47 Dose: 50 mcg Metoclopramide HCl (Reglan) 10 mg IVPB Q6 [facility] Last Admin: 09/22/17 05:47 Dose: 10 mg Metolazone (Zaroxolyn) 10 mg PEG MWF [facility] Last Admin: 09/21/17 09:37 Dose: 10 mg Potassium Phos/Sodium Phos (Neutra-Phos) 1 pkt PEG TID [facility] Last Admin: 09/22/17 10:02 Dose: 1 pkt Rosuvastatin Calcium (Crestor) 5 mg PEG HS [facility] Last Admin: 09/21/17 21:47 Dose: 5 mg - Labs Labs: 09/21/17 08:35 09/21/17 08:35 PT 13.5 SECONDS (9.7-12.2) H 09/19/17 19:16 INR 1.2 09/19/17 19:16 APTT 42 SECONDS (21-34) H 09/19/17 19:16 - Constitutional Appears: No Acute Distress - Head Exam Head Exam: ATRAUMATIC, NORMOCEPHALIC - Eye Exam Eye Exam: EOMI, PERRL - Neck Exam Neck Exam: absent: Lymphadenopathy, Thyromegaly - Respiratory Exam Respiratory Exam: NORMAL BREATHING PATTERN. absent: Rales, Rhonchi, Wheezes - Cardiovascular Exam Cardiovascular Exam: REGULAR RHYTHM, +S1, +S2. absent: Gallop, Rubs, Murmur - GI/Abdominal Exam GI & Abdominal Exam: Soft, Normal Bowel Sounds. absent: Tenderness, Organomegaly Additional comments: Gastrostomy site clean and dry - Rectal Exam Rectal Exam: Deferred - Extremities Exam Extremities Exam: absent: Calf Tenderness, Pedal Edema Assessment and Plan (1) Small bowel obstruction Assessment & Plan: Nurses report 100 cc output from the G tube overnight. The abdomen is soft. Will check CT scan with oral contrast. Status: Acute
--- NOTE | 2017-09-22 11:30 | RAD ---
HISTORY: Abdominal distention - pseudoobstruction vs SBO COMPARISON: No prior. FINDINGS: BOWEL: No evidence of bowel obstruction. No abnormally dilated bowel loops. Percutaneous gastrostomy noted in upper left paraspinous region. Numerous surgical clips in upper abdomen. No masses or abnormal intra-abdominal calcifications. BONES: Normal. OTHER FINDINGS: None. IMPRESSION: No evidence of bowel obstruction.
[2017-09-22] MEDS ORDERED: Iohexol 240 (50 ml) PO ONE (11:45)
--- NOTE | 2017-09-22 14:29 | CP.PCM.PN ---
Subjective - Date & Time of Evaluation Date of Evaluation: 09/22/17 Time of Evaluation: 07:40 - Subjective Subjective: clinically same Objective - Vital Signs/Intake and Output Vital Signs (last 24 hours): Temp Pulse Resp BP Pulse Ox 98 F 64 20 154/56 H 100 09/22/17 12:00 09/22/17 08:20 09/22/17 08:20 09/22/17 08:20 09/22/17 08:20 Intake and Output: 09/22/17 09/22/17 06:59 18:59 Intake Total 320 320 Output Total 150 100 Balance 170 220 - Medications Medications: Current Medications Acetaminophen (Tylenol 650mg/20.3ml Solution Ud) 650 mg PEG Q6H PRN PRN Reason: Fever >100.4 F Last Admin: 09/22/17 11:00 Dose: 650 mg Clonidine HCl (Catapres) 0.3 mg PEG Q8 [facility] Last Admin: 09/22/17 05:47 Dose: 0.3 mg Clopidogrel Bisulfate (Plavix) 75 mg PEG DAILY [facility] Last Admin: 09/22/17 10:02 Dose: 75 mg Enoxaparin Sodium (Lovenox) 30 mg SC DAILY [facility] Last Admin: 09/22/17 10:02 Dose: 30 mg Epoetin [place] (Procrit) 10,000 unit IV F [facility] Stop: 10/03/17 09:01 Last Admin: 09/21/17 13:55 Dose: 10,000 unit Famotidine (Pepcid) 20 mg PEG HS [facility] Last Admin: 09/21/17 21:47 Dose: 20 mg Guaifenesin (Robitussin) 100 mg PEG Q6H PRN PRN Reason: Cough Hydralazine HCl (Apresoline) 10 mg IVP Q6 PRN PRN Reason: Systolic Blood Pressure Hydromorphone HCl (Dilaudid) 0.5 mg IVP Q8 PRN PRN Reason: Pain, severe (8-10) Piperacillin Sod/Tazobactam Sod (Zosyn 2.25 Gm Iv Premix) 2.25 gm in 50 mls @ 100 mls/hr IVPB Q12H [facility] Last Admin: 09/22/17 12:05 Dose: 100 mls/hr Dextrose (Dextrose 5% In Water 1000 Ml) 1,000 mls @ 40 mls/hr IV .Q24H [facility] Last Admin: 09/21/17 16:45 Dose: 40 mls/hr Vancomycin HCl 500 mg/ Sodium (Chloride) 100 mls @ 100 mls/hr IVPB MWF [facility] PRN Reason: Protocol Stop: 09/26/17 09:01 Last Admin: 09/21/17 15:30 Dose: 100 mls/hr Insulin Aspart (Novolog) 0 unit SC ACHS [facility] PRN Reason: Protocol Last Admin: 09/22/17 12:10 Dose: Not Given Ipratropium [place] (Atrovent) 2.5 mg IH RQ6 [facility] Last Admin: 09/22/17 13:19 Dose: 0.5 mg Isosorbide Dinitrate (Isordil) 20 mg PEG Q8 [facility] Last Admin: 09/22/17 05:47 Dose: 20 mg Lactic Acid (Lac-Hydrin 12% Lotion (225 G)) 1 gm TOP QSHIFT [facility] Last Admin: 09/22/17 14:06 Dose: 1 dose Lactulose (Enulose) 20 gm PEG HS [facility] Last Admin: 09/21/17 21:48 Dose: 20 gm Levothyroxine Sodium (Synthroid) 50 mcg PEG 0630 [facility] Last Admin: 09/22/17 05:47 Dose: 50 mcg Metoclopramide HCl (Reglan) 10 mg IVPB Q6 [facility] Last Admin: 09/22/17 12:05 Dose: 10 mg Metolazone (Zaroxolyn) 10 mg PEG MWF [facility] Last Admin: 09/21/17 09:37 Dose: 10 mg Potassium Phos/Sodium Phos (Neutra-Phos) 1 pkt PEG TID [facility] Last Admin: 09/22/17 10:02 Dose: 1 pkt Rosuvastatin Calcium (Crestor) 5 mg PEG HS [facility] Last Admin: 09/21/17 21:47 Dose: 5 mg - Labs Labs: 09/21/17 08:35 09/21/17 08:35 PT 13.5 SECONDS (9.7-12.2) H 09/19/17 19:16 INR 1.2 09/19/17 19:16 APTT 42 SECONDS (21-34) H 09/19/17 19:16 - Constitutional Appears: Well - Head Exam Head Exam: ATRAUMATIC, NORMAL INSPECTION, NORMOCEPHALIC - Eye Exam Eye Exam: EOMI, Normal appearance, PERRL Pupil Exam: NORMAL ACCOMODATION, PERRL - ENT Exam ENT Exam: Mucous Membranes Moist, Normal Exam - Neck Exam Neck Exam: Full ROM, Normal Inspection. absent: Lymphadenopathy - Respiratory Exam Respiratory Exam: Decreased Breath Sounds - Cardiovascular Exam Cardiovascular Exam: REGULAR RHYTHM, +S1, +S2 - GI/Abdominal Exam GI & Abdominal Exam: Soft, Diminished Bowel Sounds - Rectal Exam Rectal Exam: Deferred
--- NOTE | 2017-09-22 15:39 | CT ---
PROCEDURE: CT Abdomen and Pelvis without intravenous contrast HISTORY: Abdominal distention: pseudoobstruction vs. SBO COMPARISON: 09/20/2017 TECHNIQUE: Without contrast.. Contrast Dose: 0 Radiation dose: Total exam DLP = 810.46 mGy-cm. This CT exam was performed using one or more of the following dose reduction techniques: Automated exposure control, adjustment of the mA and/or kV according to patient size, and/or use of iterative reconstruction technique. FINDINGS: LOWER THORAX: Very small bilateral pleural effusion. Bilateral calcified pleural plaque consistent with asbestos related pleural disease. Left lower lobe consolidation, nonspecific. Minimal right lower lobe compressive atelectasis. LIVER: Normal size and contour. No mass. No biliary ductal dilatation. Scattered punctate calcifications consistent with calcified granulomata. GALLBLADDER AND BILE DUCTS: Gallbladder not identified. Status post cholecystectomy. PANCREAS: Evaluation limited due to respiratory motion artifact and absence of intravenous contrast. No mass. No pancreatic ductal dilatation. No peripancreatic fluid. SPLEEN: Mild splenomegaly. The spleen measures approximately 13.9 cm greatest dimension. No focal mass. ADRENALS: Unremarkable. No mass. KIDNEYS AND URETERS: Atrophic kidneys. No mass or hydronephrosis. No renal calculus. Bilateral renal vascular calcifications are noted. VASCULATURE: Unremarkable. No aortic aneurysm. BOWEL: No evidence bowel obstruction. No abnormal bowel loops. APPENDIX: Not identified. No secondary findings. PERITONEUM: Unremarkable. No free fluid. No free air. LYMPH NODES: Unremarkable. No enlarged lymph nodes. BLADDER: Nondistended REPRODUCTIVE: Normal prostate BONES: No acute fracture. OTHER FINDINGS: None. IMPRESSION: No evidence of bowel obstruction. Mild splenomegaly. Left lower lobe consolidation. Small bilateral pleural effusion. Asbestos related pleural disease. Renal atrophy.
[2017-09-23] MEDS: Piperacill/Tazo 2.25gm in Dex 2.25 GM/50 ML BAG IVPB SCH ×2 (00:19→13:31)
[2017-09-23] MEDS: Ipratropium 0.02% Inhal Soln (0.5 mg/2.5 ml) UD IH SCH ×5 (01:37→19:33)
[2017-09-23] MEDS: Levothyroxine 50 MCG TAB PEG SCH (06:11)
[2017-09-23] MEDS: Ammonium Lactate 12% Lotion (225 g) TOP SCH ×3 (06:11→21:57)
[2017-09-23 06:45] LABS: BASO % 0.6 % (0.0-2.0); EOS # 0.3 K/uL (0.0-0.7); EOS % 6.1 % (0.0-4.0); HEMOGLOBIN 7.8 g/dL (12.0-18.0); LYMPH # 1.2 K/uL (1.0-4.3); LYMPH % 23.2 % (20.0-40.0); MEAN CELL VOLUME 87.6 fL (80.0-94.0); MEAN CORPUSCULAR HEMOGLOBIN 28.9 pg (27.0-31.0); MEAN PLATELET VOLUME 9.2 fL (7.2-11.7); MONO # 0.6 K/uL (0.0-0.8); MONO % 11.3 % (0.0-10.0); NEUT # 2.9 K/uL (1.8-7.0); NEUT % 58.8 % (50.0-75.0); RBC 2.69 Mil/uL (4.40-5.90); RED CELL DISTRIBUTION WIDTH 18.2 % (11.5-14.5)
[2017-09-23 06:49] LABS: ALB/GLOB RATIO 0.5 (1.0-2.1); ALBUMIN 2.7 g/dL (3.5-5.0)
--- NOTE | 2017-09-23 08:03 | CP.PCM.PN ---
Subjective - Date & Time of Evaluation Date of Evaluation: 09/23/17 Time of Evaluation: 08:01 - Subjective Subjective: Vascular Surgery Progress Note For Dr. Deshpande This 62M was seen and examined at bedside. No acute events overnight. Tube feeds stopped due to emesis and G-Tube output. Today the belly is soft, he will be going for a CT with PO contrast. Objective - Vital Signs/Intake and Output Vital Signs (last 24 hours): Temp Pulse Resp BP Pulse Ox 98.7 F 59 L 20 133/61 100 09/23/17 00:00 09/23/17 00:00 09/23/17 00:00 09/22/17 15:25 09/23/17 00:00 Intake and Output: 09/23/17 09/23/17 06:59 18:59 Intake Total 320 350 Output Total 150 600 Balance 170 -250 - Medications Medications: Current Medications Acetaminophen (Tylenol 650mg/20.3ml Solution Ud) 650 mg PEG Q6H PRN PRN Reason: Fever >100.4 F Last Admin: 09/22/17 11:00 Dose: 650 mg Clonidine HCl (Catapres) 0.3 mg PEG Q8 [facility] Last Admin: 09/23/17 06:10 Dose: 0.3 mg Clopidogrel Bisulfate (Plavix) 75 mg PEG DAILY [facility] Last Admin: 09/22/17 10:02 Dose: 75 mg Enoxaparin Sodium (Lovenox) 30 mg SC DAILY [facility] Last Admin: 09/22/17 10:02 Dose: 30 mg Epoetin Alan (Procrit) 10,000 unit IV MWF [facility] Stop: 10/03/17 09:01 Last Admin: 09/21/17 13:55 Dose: 10,000 unit Famotidine (Pepcid) 20 mg PEG HS [facility] Last Admin: 09/22/17 21:14 Dose: 20 mg Guaifenesin (Robitussin) 100 mg PEG Q6H PRN PRN Reason: Cough Hydralazine HCl (Apresoline) 10 mg IVP Q6 PRN PRN Reason: Systolic Blood Pressure Hydromorphone HCl (Dilaudid) 0.5 mg IVP Q8 PRN PRN Reason: Pain, severe (8-10) Piperacillin Sod/Tazobactam Sod (Zosyn 2.25 Gm Iv Premix) 2.25 gm in 50 mls @ 100 mls/hr IVPB Q12H [facility] Last Admin: 09/23/17 00:19 Dose: 100 mls/hr Dextrose (Dextrose 5% In Water 1000 Ml) 1,000 mls @ 40 mls/hr IV .Q24H [facility] Last Admin: 09/21/17 16:45 Dose: 40 mls/hr Vancomycin HCl 500 mg/ Sodium (Chloride) 100 mls @ 100 mls/hr IVPB MWF [facility] PRN Reason: Protocol Stop: 09/26/17 09:01 Last Admin: 09/21/17 15:30 Dose: 100 mls/hr Insulin Aspart (Novolog) 0 unit SC ACHS [facility] PRN Reason: Protocol Last Admin: 09/22/17 18:09 Dose: Not Given Ipratropium [place] (Atrovent) 0.5 mg IH RQ6 [facility] Last Admin: 09/23/17 01:48 Dose: Not Given Isosorbide Dinitrate (Isordil) 20 mg PEG Q8 [facility] Last Admin: 09/23/17 06:11 Dose: 20 mg Lactic Acid (Lac-Hydrin 12% Lotion (225 G)) 1 gm TOP QSHIFT [facility] Last Admin: 09/23/17 06:11 Dose: 1 dose Lactulose (Enulose) 20 gm PEG HS [facility] Last Admin: 09/22/17 21:15 Dose: 20 gm Levothyroxine Sodium (Synthroid) 50 mcg PEG 0630 [facility] Last Admin: 09/23/17 06:11 Dose: 50 mcg Metoclopramide HCl (Reglan) 10 mg IVPB Q6 [facility] Last Admin: 09/23/17 06:11 Dose: 10 mg Metolazone (Zaroxolyn) 10 mg PEG MWF [facility] Last Admin: 09/21/17 09:37 Dose: 10 mg Potassium Phos/Sodium Phos (Neutra-Phos) 1 pkt PEG TID [facility] Last Admin: 09/22/17 18:08 Dose: 1 pkt Rosuvastatin Calcium (Crestor) 5 mg PEG HS [facility] Last Admin: 09/22/17 21:14 Dose: 5 mg - Labs Labs: 09/23/17 06:31 09/23/17 06:31 PT 13.5 SECONDS (9.7-12.2) H 03/14/18 19:16 INR 1.2 09/19/17 19:16 APTT 42 SECONDS (21-34) H 09/19/17 19:16 - Constitutional Appears: Non-toxic, No Acute Distress - Head Exam Head Exam: ATRAUMATIC, NORMAL INSPECTION, NORMOCEPHALIC - Eye Exam Eye Exam: EOMI - ENT Exam Additional comments: Tracheostomy in place - Respiratory Exam Respiratory Exam: NORMAL BREATHING PATTERN. absent: Accessory Muscle Use, Respiratory Distress - GI/Abdominal Exam GI & Abdominal Exam: Soft. absent: Distended, Guarding, Rigid, Tenderness, Rebound Additional comments: Gastrostomy tube in place, to suction with bilious output noted. Currently clamped at 1.5cm from skin - Extremities Exam Extremities Exam: Normal Inspection. absent: Calf Tenderness Additional comments: Assessment and Plan - Assessment and Plan (Free Text) Assessment: 62yo M with bilious residuals from gastrostomy tube. Also consulted for r/o Left arm AVF infection. Plan: - No evidence of left arm AVF infection - Patient has a soft abdomen and having BMs, however, has bilious residuals noted from Gastrostomy tube. - Hold gastrostomy tube feedings for now - Follow up CT with PO contrast - will continue to monitor. - followup tube study D/W Dr. Deshpande
[2017-09-23] MEDS: (Novolog) Insulin Aspart, Recombinant 100 u/ml 10 ml vial SC SCH ×4 (08:16→22:01)
[2017-09-23] MEDS ORDERED: metOLazone 5 MG TAB PEG SCH (10:00)
--- NOTE | 2017-09-23 10:40 | CP.PCM.PN ---
Subjective - Date & Time of Evaluation Date of Evaluation: 09/23/17 Time of Evaluation: 10:37 - Subjective Subjective: Mental status is unchanged. Patient remains uncommunicative. Objective - Vital Signs/Intake and Output Vital Signs (last 24 hours): Temp Pulse Resp BP Pulse Ox 98.7 F 59 L 20 133/61 100 09/23/17 00:00 09/23/17 00:00 09/23/17 00:00 09/22/17 15:25 09/23/17 00:00 Intake and Output: 09/23/17 09/23/17 06:59 18:59 Intake Total 320 350 Output Total 150 600 Balance 170 -250 - Medications Medications: Current Medications Acetaminophen (Tylenol 650mg/20.3ml Solution Ud) 650 mg PEG Q6H PRN PRN Reason: Fever >100.4 F Last Admin: 09/22/17 11:00 Dose: 650 mg Clonidine HCl (Catapres) 0.3 mg PEG Q8 [facility] Last Admin: 09/23/17 06:10 Dose: 0.3 mg Clopidogrel Bisulfate (Plavix) 75 mg PEG DAILY [facility] Last Admin: 09/22/17 10:02 Dose: 75 mg Enoxaparin Sodium (Lovenox) 30 mg SC DAILY [facility] Last Admin: 09/22/17 10:02 Dose: 30 mg Epoetin Alan (Procrit) 10,000 unit IV F [facility] Stop: 10/03/17 09:01 Last Admin: 09/21/17 13:55 Dose: 10,000 unit Famotidine (Pepcid) 20 mg PEG HS [facility] Last Admin: 09/22/17 21:14 Dose: 20 mg Guaifenesin (Robitussin) 100 mg PEG Q6H PRN PRN Reason: Cough Hydralazine HCl (Apresoline) 10 mg IVP Q6 PRN PRN Reason: Systolic Blood Pressure Hydromorphone HCl (Dilaudid) 0.5 mg IVP Q8 PRN PRN Reason: Pain, severe (8-10) Piperacillin Sod/Tazobactam Sod (Zosyn 2.25 Gm Iv Premix) 2.25 gm in 50 mls @ 100 mls/hr IVPB Q12H [facility] Last Admin: 09/23/17 00:19 Dose: 100 mls/hr Dextrose (Dextrose 5% In Water 1000 Ml) 1,000 mls @ 40 mls/hr IV .Q24H [facility] Last Admin: 09/21/17 16:45 Dose: 40 mls/hr Vancomycin HCl 500 mg/ Sodium (Chloride) 100 mls @ 100 mls/hr IVPB MWF [facility] PRN Reason: Protocol Stop: 09/26/17 09:01 Last Admin: 09/21/17 15:30 Dose: 100 mls/hr Insulin Aspart (Novolog) 0 unit SC ACHS [facility] PRN Reason: Protocol Last Admin: 09/23/17 08:16 Dose: Not Given Ipratropium [place] (Atrovent) 0.5 mg IH RQ6 [facility] Last Admin: 09/23/17 01:48 Dose: Not Given Isosorbide Dinitrate (Isordil) 20 mg PEG Q8 [facility] Last Admin: 09/23/17 06:11 Dose: 20 mg Lactic Acid (Lac-Hydrin 12% Lotion (225 G)) 1 gm TOP QSHIFT [facility] Last Admin: 09/23/17 06:11 Dose: 1 dose Lactulose (Enulose) 20 gm PEG HS [facility] Last Admin: 09/22/17 21:15 Dose: 20 gm Levothyroxine Sodium (Synthroid) 50 mcg PEG 0630 [facility] Last Admin: 09/23/17 06:11 Dose: 50 mcg Metoclopramide HCl (Reglan) 10 mg IVPB Q6 [facility] Last Admin: 09/23/17 06:11 Dose: 10 mg Metolazone (Zaroxolyn) 10 mg PEG MWF [facility] Last Admin: 09/21/17 09:37 Dose: 10 mg Potassium Phos/Sodium Phos (Neutra-Phos) 1 pkt PEG TID [facility] Last Admin: 09/22/17 18:08 Dose: 1 pkt Rosuvastatin Calcium (Crestor) 5 mg PEG HS [facility] Last Admin: 09/22/17 21:14 Dose: 5 mg - Labs Labs: 09/23/17 06:31 09/23/17 06:31 PT 13.5 SECONDS (9.7-12.2) H 09/19/17 19:16 INR 1.2 09/19/17 19:16 APTT 42 SECONDS (21-34) H 09/19/17 19:16 - Constitutional Appears: No Acute Distress - Head Exam Head Exam: ATRAUMATIC, NORMOCEPHALIC - Neck Exam Neck Exam: absent: Lymphadenopathy, Thyromegaly - Respiratory Exam Respiratory Exam: NORMAL BREATHING PATTERN. absent: Rales, Rhonchi, Wheezes - Cardiovascular Exam Cardiovascular Exam: REGULAR RHYTHM, +S1, +S2. absent: Gallop, Rubs, Murmur - GI/Abdominal Exam GI & Abdominal Exam: Soft, Normal Bowel Sounds. absent: Tenderness, Mass, Organomegaly Additional comments: Gastrostomy site is clean and dry - Rectal Exam Rectal Exam: Deferred - Extremities Exam Extremities Exam: absent: Calf Tenderness, Pedal Edema Assessment and Plan (1) Small bowel obstruction Assessment & Plan: Repeat CT scan with contrast via G tube shows normal bowel. Will discontinue NG suction, resume tube feedings and observe for gastric retention. Status: Acute
[2017-09-23] MEDS: Enoxaparin 30 mg Syringe SC SCH (11:00)
[2017-09-23] MEDS: Potassium & Sodium Phosphate PEG SCH ×3 (11:01→18:30)
--- NOTE | 2017-09-23 12:51 | CP.PCM.PN ---
Subjective - Date & Time of Evaluation Date of Evaluation: 09/23/17 Time of Evaluation: 12:51 Objective - Vital Signs/Intake and Output Vital Signs (last 24 hours): Temp Pulse Resp BP Pulse Ox 98.7 F 59 L 20 133/61 100 09/23/17 00:00 09/23/17 00:00 09/23/17 00:00 09/22/17 15:25 09/23/17 00:00 Intake and Output: 09/23/17 09/23/17 06:59 18:59 Intake Total 320 350 Output Total 150 600 Balance 170 -250 - Medications Medications: Current Medications Acetaminophen (Tylenol 650mg/20.3ml Solution Ud) 650 mg PEG Q6H PRN PRN Reason: Fever >100.4 F Last Admin: 09/22/17 11:00 Dose: 650 mg Clonidine HCl (Catapres) 0.3 mg PEG Q8 [facility] Last Admin: 09/23/17 06:10 Dose: 0.3 mg Clopidogrel Bisulfate (Plavix) 75 mg PEG DAILY [facility] Last Admin: 09/23/17 11:00 Dose: 75 mg Enoxaparin Sodium (Lovenox) 30 mg SC DAILY [facility] Last Admin: 09/23/17 11:00 Dose: 30 mg Epoetin Alan (Procrit) 10,000 unit IV MWF [facility] Stop: 10/03/17 09:01 Last Admin: 09/21/17 13:55 Dose: 10,000 unit Famotidine (Pepcid) 20 mg PEG HS [facility] Last Admin: 09/22/17 21:14 Dose: 20 mg Guaifenesin (Robitussin) 100 mg PEG Q6H PRN PRN Reason: Cough Hydralazine HCl (Apresoline) 10 mg IVP Q6 PRN PRN Reason: Systolic Blood Pressure Hydromorphone HCl (Dilaudid) 0.5 mg IVP Q8 PRN PRN Reason: Pain, severe (8-10) Piperacillin Sod/Tazobactam Sod (Zosyn 2.25 Gm Iv Premix) 2.25 gm in 50 mls @ 100 mls/hr IVPB Q12H [facility] Last Admin: 09/23/17 00:19 Dose: 100 mls/hr Dextrose (Dextrose 5% In Water 1000 Ml) 1,000 mls @ 40 mls/hr IV .Q24H [facility] Last Admin: 09/21/17 16:45 Dose: 40 mls/hr Vancomycin HCl 500 mg/ Sodium (Chloride) 100 mls @ 100 mls/hr IVPB MWF [facility] PRN Reason: Protocol Stop: 09/26/17 09:01 Last Admin: 09/21/17 15:30 Dose: 100 mls/hr Insulin Aspart (Novolog) 0 unit SC ACHS [facility] PRN Reason: Protocol Last Admin: 09/23/17 11:53 Dose: Not Given Ipratropium [place] (Atrovent) 0.5 mg IH RQ6 [facility] Last Admin: 09/23/17 08:08 Dose: 0.5 mg Isosorbide Dinitrate (Isordil) 20 mg PEG Q8 [facility] Last Admin: 09/23/17 06:11 Dose: 20 mg Lactic Acid (Lac-Hydrin 12% Lotion (225 G)) 1 gm TOP QSHIFT [facility] Last Admin: 09/23/17 06:11 Dose: 1 dose Lactulose (Enulose) 20 gm PEG HS [facility] Last Admin: 09/22/17 21:15 Dose: 20 gm Levothyroxine Sodium (Synthroid) 50 mcg PEG 0630 [facility] Last Admin: 09/23/17 06:11 Dose: 50 mcg Metoclopramide HCl (Reglan) 10 mg IVPB Q6 [facility] Last Admin: 09/23/17 06:11 Dose: 10 mg Metolazone (Zaroxolyn) 10 mg PEG MWF [facility] Last Admin: 09/21/17 09:37 Dose: 10 mg Potassium Phos/Sodium Phos (Neutra-Phos) 1 pkt PEG TID [facility] Last Admin: 09/23/17 11:01 Dose: 1 pkt Rosuvastatin Calcium (Crestor) 5 mg PEG HS [facility] Last Admin: 09/22/17 21:14 Dose: 5 mg - Labs Labs: 09/23/17 06:31 09/23/17 06:31 PT 13.5 SECONDS (9.7-12.2) H 09/19/17 19:16 INR 1.2 09/19/17 19:16 APTT 42 SECONDS (21-34) H 09/19/17 19:16
--- NOTE | 2017-09-23 16:58 | CP.PCM.PN ---
Subjective - Date & Time of Evaluation Date of Evaluation: 09/23/17 Time of Evaluation: 09:00 - Subjective Subjective: T MAX DOWN CULTURE SPUTUM PENDING Objective - Vital Signs/Intake and Output Vital Signs (last 24 hours): Temp Pulse Resp BP Pulse Ox 98.7 F 59 L 20 133/61 100 09/23/17 00:00 09/23/17 00:00 09/23/17 00:00 09/22/17 15:25 09/23/17 00:00 Intake and Output: 09/23/17 09/23/17 06:59 18:59 Intake Total 320 350 Output Total 150 600 Balance 170 -250 - Medications Medications: Current Medications Acetaminophen (Tylenol 650mg/20.3ml Solution Ud) 650 mg PEG Q6H PRN PRN Reason: Fever >100.4 F Last Admin: 09/22/17 11:00 Dose: 650 mg Clonidine HCl (Catapres) 0.3 mg PEG Q8 [facility] Last Admin: 09/23/17 13:31 Dose: 0.3 mg Clopidogrel Bisulfate (Plavix) 75 mg PEG DAILY [facility] Last Admin: 09/23/17 11:00 Dose: 75 mg Enoxaparin Sodium (Lovenox) 30 mg SC DAILY [facility] Last Admin: 09/23/17 11:00 Dose: 30 mg Epoetin Alan (Procrit) 10,000 unit IV F [facility] Stop: 10/03/17 09:01 Last Admin: 09/21/17 13:55 Dose: 10,000 unit Famotidine (Pepcid) 20 mg PEG HS [facility] Last Admin: 09/22/17 21:14 Dose: 20 mg Guaifenesin (Robitussin) 100 mg PEG Q6H PRN PRN Reason: Cough Hydralazine HCl (Apresoline) 10 mg IVP Q6 PRN PRN Reason: Systolic Blood Pressure Hydromorphone HCl (Dilaudid) 0.5 mg IVP Q8 PRN PRN Reason: Pain, severe (8-10) Piperacillin Sod/Tazobactam Sod (Zosyn 2.25 Gm Iv Premix) 2.25 gm in 50 mls @ 100 mls/hr IVPB Q12H [facility] Last Admin: 09/23/17 13:31 Dose: 100 mls/hr Dextrose (Dextrose 5% In Water 1000 Ml) 1,000 mls @ 40 mls/hr IV .Q24H [facility] Last Admin: 09/21/17 16:45 Dose: 40 mls/hr Vancomycin HCl 500 mg/ Sodium (Chloride) 100 mls @ 100 mls/hr IVPB MWF [facility] PRN Reason: Protocol Stop: 09/26/17 09:01 Last Admin: 09/21/17 15:30 Dose: 100 mls/hr Insulin Aspart (Novolog) 0 unit SC ACHS [facility] PRN Reason: Protocol Last Admin: 09/23/17 11:53 Dose: Not Given Ipratropium [place] (Atrovent) 0.5 mg IH RQ6 [facility] Last Admin: 09/23/17 13:11 Dose: 0.5 mg Isosorbide Dinitrate (Isordil) 20 mg PEG Q8 [facility] Last Admin: 09/23/17 13:31 Dose: 20 mg Lactic Acid (Lac-Hydrin 12% Lotion (225 G)) 1 gm TOP QSHIFT [facility] Last Admin: 09/23/17 13:32 Dose: 1 dose Lactulose (Enulose) 20 gm PEG HS [facility] Last Admin: 09/22/17 21:15 Dose: 20 gm Levothyroxine Sodium (Synthroid) 50 mcg PEG 0630 [facility] Last Admin: 09/23/17 06:11 Dose: 50 mcg Metoclopramide HCl (Reglan) 10 mg IVPB Q6 [facility] Last Admin: 09/23/17 13:30 Dose: 10 mg Metolazone (Zaroxolyn) 10 mg PEG MWF [facility] Last Admin: 09/21/17 09:37 Dose: 10 mg Potassium Phos/Sodium Phos (Neutra-Phos) 1 pkt PEG TID [facility] Last Admin: 09/23/17 13:31 Dose: 1 pkt Rosuvastatin Calcium (Crestor) 5 mg PEG HS [facility] Last Admin: 09/22/17 21:14 Dose: 5 mg - Labs Labs: 09/23/17 06:31 09/23/17 06:31 PT 13.5 SECONDS (9.7-12.2) H 09/19/17 19:16 INR 1.2 09/19/17 19:16 APTT 42 SECONDS (21-34) H 09/19/17 19:16 - Constitutional Appears: Non-toxic, Chronically Ill - Head Exam Head Exam: NORMOCEPHALIC - Eye Exam Eye Exam: PERRL - ENT Exam ENT Exam: Mucous Membranes Dry - Neck Exam Neck Exam: absent: Lymphadenopathy - Respiratory Exam Respiratory Exam: Decreased Breath Sounds - Cardiovascular Exam Cardiovascular Exam: REGULAR RHYTHM - GI/Abdominal Exam GI & Abdominal Exam: Distended - Rectal Exam Rectal Exam: Deferred - Exam Exam: NORMAL INSPECTION - Extremities Exam Extremities Exam: absent: Pedal Edema - Back Exam Back Exam: absent: CVA tenderness (L), CVA tenderness (R) - Neurological Exam Neurological Exam: Altered - Psychiatric Exam Psychiatric exam: Depressed Assessment and Plan (1) Surgical arteriovenous fistula hemorrhage Status: Acute (2) Altered mental status Status: Acute
--- NOTE | 2017-09-23 17:14 | CP.PCM.PN ---
Subjective - Date & Time of Evaluation Date of Evaluation: 09/23/17 Time of Evaluation: 07:40 - Subjective Subjective: clinically same Objective - Vital Signs/Intake and Output Vital Signs (last 24 hours): Temp Pulse Resp BP Pulse Ox 98.6 F 61 20 147/61 100 09/23/17 15:00 09/23/17 15:00 09/23/17 15:00 09/23/17 15:00 09/23/17 15:00 Intake and Output: 09/23/17 09/23/17 06:59 18:59 Intake Total 320 350 Output Total 150 600 Balance 170 -250 - Medications Medications: Current Medications Acetaminophen (Tylenol 650mg/20.3ml Solution Ud) 650 mg PEG Q6H PRN PRN Reason: Fever >100.4 F Last Admin: 09/22/17 11:00 Dose: 650 mg Clonidine HCl (Catapres) 0.3 mg PEG Q8 [facility] Last Admin: 09/23/17 13:31 Dose: 0.3 mg Clopidogrel Bisulfate (Plavix) 75 mg PEG DAILY [facility] Last Admin: 09/23/17 11:00 Dose: 75 mg Enoxaparin Sodium (Lovenox) 30 mg SC DAILY [facility] Last Admin: 09/23/17 11:00 Dose: 30 mg Epoetin Alan (Procrit) 10,000 unit IV [facility] [facility] Stop: 10/03/17 09:01 Last Admin: 09/21/17 13:55 Dose: 10,000 unit Famotidine (Pepcid) 20 mg PEG HS [facility] Last Admin: 09/22/17 21:14 Dose: 20 mg Guaifenesin (Robitussin) 100 mg PEG Q6H PRN PRN Reason: Cough Hydralazine HCl (Apresoline) 10 mg IVP Q6 PRN PRN Reason: Systolic Blood Pressure Hydromorphone HCl (Dilaudid) 0.5 mg IVP Q8 PRN PRN Reason: Pain, severe (8-10) Piperacillin Sod/Tazobactam Sod (Zosyn 2.25 Gm Iv Premix) 2.25 gm in 50 mls @ 100 mls/hr IVPB Q12H [facility] Last Admin: 09/23/17 13:31 Dose: 100 mls/hr Dextrose (Dextrose 5% In Water 1000 Ml) 1,000 mls @ 40 mls/hr IV .Q24H [facility] Last Admin: 09/21/17 16:45 Dose: 40 mls/hr Vancomycin HCl 500 mg/ Sodium (Chloride) 100 mls @ 100 mls/hr IVPB MWF [facility] PRN Reason: Protocol Stop: 09/26/17 09:01 Last Admin: 09/21/17 15:30 Dose: 100 mls/hr Insulin Aspart (Novolog) 0 unit SC ACHS [facility] PRN Reason: Protocol Last Admin: 09/23/17 11:53 Dose: Not Given Ipratropium [place] (Atrovent) 0.5 mg IH RQ6 [facility] Last Admin: 09/23/17 13:11 Dose: 0.5 mg Isosorbide Dinitrate (Isordil) 20 mg PEG Q8 [facility] Last Admin: 09/23/17 13:31 Dose: 20 mg Lactic Acid (Lac-Hydrin 12% Lotion (225 G)) 1 gm TOP QSHIFT [facility] Last Admin: 09/23/17 13:32 Dose: 1 dose Lactulose (Enulose) 20 gm PEG HS [facility] Last Admin: 09/22/17 21:15 Dose: 20 gm Levothyroxine Sodium (Synthroid) 50 mcg PEG 0630 [facility] Last Admin: 09/23/17 06:11 Dose: 50 mcg Metoclopramide HCl (Reglan) 10 mg IVPB Q6 [facility] Last Admin: 09/23/17 13:30 Dose: 10 mg Metolazone (Zaroxolyn) 10 mg PEG MWF [facility] Last Admin: 09/21/17 09:37 Dose: 10 mg Potassium Phos/Sodium Phos (Neutra-Phos) 1 pkt PEG TID [facility] Last Admin: 09/23/17 13:31 Dose: 1 pkt Rosuvastatin Calcium (Crestor) 5 mg PEG HS [facility] Last Admin: 09/22/17 21:14 Dose: 5 mg - Labs Labs: 09/23/17 06:31 09/23/17 06:31 PT 13.5 SECONDS (9.7-12.2) H 09/19/17 19:16 INR 1.2 09/19/17 19:16 APTT 42 SECONDS (21-34) H 09/19/17 19:16 - Constitutional Appears: Well - Head Exam Head Exam: ATRAUMATIC, NORMAL INSPECTION, NORMOCEPHALIC - Eye Exam Eye Exam: EOMI, Normal appearance, PERRL Pupil Exam: NORMAL ACCOMODATION, PERRL - ENT Exam ENT Exam: Mucous Membranes Moist, Normal Exam - Neck Exam Neck Exam: Full ROM, Normal Inspection. absent: Lymphadenopathy - Respiratory Exam Respiratory Exam: Decreased Breath Sounds - Cardiovascular Exam Cardiovascular Exam: REGULAR RHYTHM, +S1, +S2 - GI/Abdominal Exam GI & Abdominal Exam: Soft, Diminished Bowel Sounds - Rectal Exam Rectal Exam: Deferred
[2017-09-24] MEDS: Piperacill/Tazo 2.25gm in Dex 2.25 GM/50 ML BAG IVPB SCH ×2 (00:06→14:20)
[2017-09-24] MEDS: Ipratropium 0.02% Inhal Soln (0.5 mg/2.5 ml) UD IH SCH ×4 (01:29→20:24)
[2017-09-24] MEDS: Levothyroxine 50 MCG TAB PEG SCH (05:32)
[2017-09-24] MEDS: Ammonium Lactate 12% Lotion (225 g) TOP SCH ×3 (05:32→21:28)
[2017-09-24] MEDS: (Novolog) Insulin Aspart, Recombinant 100 u/ml 10 ml vial SC SCH ×4 (08:30→23:03)
[2017-09-24] MEDS: metOLazone 5 MG TAB PEG SCH (09:50)
--- NOTE | 2017-09-24 10:19 | CP.PCM.PN ---
Subjective - Date & Time of Evaluation Date of Evaluation: 09/24/17 Time of Evaluation: 10:11 - Subjective Subjective: Mental status is unchanged. Nurses report high residual volume, > 150 cc, when tube feedings are infusing at only 20 cc/hiour. Objective - Vital Signs/Intake and Output Vital Signs (last 24 hours): Temp Pulse Resp BP Pulse Ox 98.9 F 57 L 22 109/43 L 100 09/24/17 09:30 09/24/17 09:30 09/24/17 09:30 09/24/17 09:45 09/24/17 09:30 Intake and Output: 09/24/17 09/24/17 06:59 18:59 Intake Total 340 510 Balance 340 510 - Medications Medications: Current Medications Acetaminophen (Tylenol 650mg/20.3ml Solution Ud) 650 mg PEG Q6H PRN PRN Reason: Fever >100.4 F Last Admin: 09/22/17 11:00 Dose: 650 mg Clonidine HCl (Catapres) 0.3 mg PEG Q8 [facility] Last Admin: 09/24/17 05:27 Dose: 0.3 mg Clopidogrel Bisulfate (Plavix) 75 mg PEG DAILY [facility] Last Admin: 09/23/17 11:00 Dose: 75 mg Enoxaparin Sodium (Lovenox) 30 mg SC DAILY [facility] Last Admin: 09/23/17 11:00 Dose: 30 mg Epoetin Alan (Procrit) 10,000 unit IV F [facility] Stop: 10/03/17 09:01 Last Admin: 09/21/17 13:55 Dose: 10,000 unit Famotidine (Pepcid) 20 mg PEG HS [facility] Last Admin: 09/23/17 21:55 Dose: 20 mg Guaifenesin (Robitussin) 100 mg PEG Q6H PRN PRN Reason: Cough Hydralazine HCl (Apresoline) 10 mg IVP Q6 PRN PRN Reason: Systolic Blood Pressure Hydromorphone HCl (Dilaudid) 0.5 mg IVP Q8 PRN PRN Reason: Pain, severe (8-10) Piperacillin Sod/Tazobactam Sod (Zosyn 2.25 Gm Iv Premix) 2.25 gm in 50 mls @ 100 mls/hr IVPB Q12H [facility] Last Admin: 09/24/17 00:06 Dose: 100 mls/hr Vancomycin HCl 500 mg/ Sodium (Chloride) 100 mls @ 100 mls/hr IVPB MWF [facility] PRN Reason: Protocol Stop: 09/26/17 09:01 Last Admin: 09/24/17 09:48 Dose: Not Given Insulin Aspart (Novolog) 0 unit SC ACHS [facility] PRN Reason: Protocol Last Admin: 09/24/17 08:30 Dose: Not Given Ipratropium [place] (Atrovent) 0.5 mg IH RQ6 [facility] Last Admin: 09/24/17 08:28 Dose: 0.5 mg Isosorbide Dinitrate (Isordil) 20 mg PEG Q8 [facility] Last Admin: 09/24/17 05:27 Dose: 20 mg Lactic Acid (Lac-Hydrin 12% Lotion (225 G)) 1 gm TOP QSHIFT [facility] Last Admin: 09/24/17 05:32 Dose: 1 applic Lactulose (Enulose) 20 gm PEG HS [facility] Last Admin: 09/23/17 21:54 Dose: 20 gm Levothyroxine Sodium (Synthroid) 50 mcg PEG 0630 [facility] Last Admin: 09/24/17 05:32 Dose: 50 mcg Metoclopramide HCl (Reglan) 10 mg IVPB Q6 [facility] Last Admin: 09/24/17 05:27 Dose: 10 mg Metolazone (Zaroxolyn) 10 mg PEG MWF [facility] Last Admin: 09/24/17 09:50 Dose: Not Given Potassium Phos/Sodium Phos (Neutra-Phos) 1 pkt PEG TID [facility] Last Admin: 09/23/17 18:30 Dose: 1 pkt Rosuvastatin Calcium (Crestor) 5 mg PEG HS [facility] Last Admin: 09/23/17 21:55 Dose: 5 mg - Labs Labs: 09/23/17 06:31 09/23/17 06:31 PT 13.5 SECONDS (9.7-12.2) H 09/19/17 19:16 INR 1.2 09/19/17 19:16 APTT 42 SECONDS (21-34) H 09/19/17 19:16 - Constitutional Appears: No Acute Distress - Head Exam Head Exam: ATRAUMATIC, NORMOCEPHALIC - Eye Exam Eye Exam: EOMI, PERRL - Neck Exam Neck Exam: absent: Lymphadenopathy, Thyromegaly - Respiratory Exam Respiratory Exam: NORMAL BREATHING PATTERN. absent: Rales, Rhonchi, Wheezes - Cardiovascular Exam Cardiovascular Exam: REGULAR RHYTHM, +S1, +S2. absent: Gallop, Rubs, Murmur - GI/Abdominal Exam GI & Abdominal Exam: Soft, Normal Bowel Sounds. absent: Tenderness, Organomegaly - Rectal Exam Rectal Exam: Deferred - Extremities Exam Extremities Exam: absent: Calf Tenderness, Pedal Edema Assessment and Plan (1) Small bowel obstruction Assessment & Plan: Residual volumes are relatively high, given the low infusion rate. This may represent gastroparesis, possibly related to medications (clonidine, Dilaudid). since contrast passed to the colon on the CT scan, obstruction is not likely. These medications should be discontinued. In addition, since the phosphorous levels have been high, the Neutraphos may not be necessary at present. Will order UGI series via G tube. Status: Acute
[2017-09-24] MEDS: Epoetin Alfa 10,000 unit/ml Dialysis IV SCH (10:43)
[2017-09-24] MEDS: Enoxaparin 30 mg Syringe SC SCH ×2 (10:56→14:59)
[2017-09-24] MEDS: Potassium & Sodium Phosphate PEG SCH (10:59)
--- NOTE | 2017-09-24 12:59 | CP.PCM.PN ---
Subjective - Date & Time of Evaluation Date of Evaluation: 09/24/17 Time of Evaluation: 06:00 - Subjective Subjective: AFEB NAD Objective - Vital Signs/Intake and Output Vital Signs (last 24 hours): Temp Pulse Resp BP Pulse Ox 98.9 F 57 L 22 113/41 L 100 09/24/17 09:30 09/24/17 09:30 09/24/17 09:30 09/24/17 12:00 09/24/17 09:30 Intake and Output: 09/24/17 09/24/17 06:59 18:59 Intake Total 340 510 Balance 340 510 - Medications Medications: Current Medications Acetaminophen (Tylenol 650mg/20.3ml Solution Ud) 650 mg PEG Q6H PRN PRN Reason: Fever >100.4 F Last Admin: 09/22/17 11:00 Dose: 650 mg Clonidine HCl (Catapres) 0.3 mg PEG Q8 [facility] Last Admin: 09/24/17 05:27 Dose: 0.3 mg Clopidogrel Bisulfate (Plavix) 75 mg PEG DAILY [facility] Last Admin: 09/24/17 10:58 Dose: Not Given Enoxaparin Sodium (Lovenox) 30 mg SC DAILY [facility] Last Admin: 09/24/17 10:56 Dose: Not Given Epoetin [place] (Procrit) 10,000 unit IV [facility] [place] Stop: 10/03/17 09:01 Last Admin: 09/24/17 10:43 Dose: 10,000 unit Famotidine (Pepcid) 20 mg PEG HS [facility] Last Admin: 09/23/17 21:55 Dose: 20 mg Guaifenesin (Robitussin) 100 mg PEG Q6H PRN PRN Reason: Cough Hydralazine HCl (Apresoline) 10 mg IVP Q6 PRN PRN Reason: Systolic Blood Pressure Piperacillin Sod/Tazobactam Sod (Zosyn 2.25 Gm Iv Premix) 2.25 gm in 50 mls @ 100 mls/hr IVPB Q12H [facility] Last Admin: 09/24/17 00:06 Dose: 100 mls/hr Vancomycin HCl 500 mg/ Sodium (Chloride) 100 mls @ 100 mls/hr IVPB [facility] [place] PRN Reason: Protocol Stop: 09/26/17 09:01 Last Admin: 09/24/17 09:48 Dose: Not Given Multivitamins/Vitamin C 10 ml/Amino Acids/Electrolytes/Dextrose 1,010 mls @ 42 mls/hr IV .Q24H [facility] Stop: 09/25/17 17:59 Insulin Aspart (Novolog) 0 unit SC ACHS [facility] PRN Reason: Protocol Last Admin: 09/24/17 08:30 Dose: Not Given Ipratropium [place] (Atrovent) 0.5 mg IH RQ6 [facility] Last Admin: 09/24/17 08:28 Dose: 0.5 mg Isosorbide Dinitrate (Isordil) 20 mg PEG Q8 [facility] Last Admin: 09/24/17 05:27 Dose: 20 mg Lactic Acid (Lac-Hydrin 12% Lotion (225 G)) 1 gm TOP QSHIFT [facility] Last Admin: 09/24/17 05:32 Dose: 1 applic Lactulose (Enulose) 20 gm PEG HS [facility] Last Admin: 09/23/17 21:54 Dose: 20 gm Levothyroxine Sodium (Synthroid) 50 mcg PEG 0630 [facility] Last Admin: 09/24/17 05:32 Dose: 50 mcg Metoclopramide HCl (Reglan) 10 mg IVPB Q6 [facility] Last Admin: 09/24/17 05:27 Dose: 10 mg Metolazone (Zaroxolyn) 10 mg PEG MWF [facility] Last Admin: 09/24/17 09:50 Dose: Not Given Rosuvastatin Calcium (Crestor) 5 mg PEG HS [facility] Last Admin: 09/23/17 21:55 Dose: 5 mg - Labs Labs: 09/23/17 06:31 09/23/17 06:31 PT 13.5 SECONDS (9.7-12.2) H 09/19/17 19:16 INR 1.2 09/19/17 19:16 APTT 42 SECONDS (21-34) H 09/19/17 19:16 - Constitutional Appears: Non-toxic, Chronically Ill - Head Exam Head Exam: NORMOCEPHALIC - Eye Exam Eye Exam: PERRL. absent: Scleral icterus - ENT Exam ENT Exam: Mucous Membranes Dry - Neck Exam Neck Exam: absent: Lymphadenopathy - Respiratory Exam Respiratory Exam: Decreased Breath Sounds - Cardiovascular Exam Cardiovascular Exam: REGULAR RHYTHM - GI/Abdominal Exam GI & Abdominal Exam: Distended, Soft. absent: Tenderness - Rectal Exam Rectal Exam: Deferred - Exam Exam: NORMAL INSPECTION - Extremities Exam Extremities Exam: absent: Pedal Edema - Back Exam Back Exam: absent: CVA tenderness (L), CVA tenderness (R) - Neurological Exam Neurological Exam: Alert, Awake, Oriented x3 - Psychiatric Exam Psychiatric exam: Depressed - Skin Skin Exam: Dry Assessment and Plan (1) Surgical arteriovenous fistula hemorrhage Status: Acute (2) Altered mental status Status: Acute - Assessment and Plan (Free Text) Assessment: NO POSITIVE CULTURES THUS FAR CONT IV ANTIBIOTICS FOR TOTAL 14 DAYS
[2017-09-24] MEDS ORDERED: Barium Sulfate for Susp 96% w/w 176g Bottle PR ONE (13:45)
--- NOTE | 2017-09-24 15:06 | CP.PCM.PN ---
Subjective - Date & Time of Evaluation Date of Evaluation: 09/24/17 Time of Evaluation: 07:30 - Subjective Subjective: clinically same Objective - Vital Signs/Intake and Output Vital Signs (last 24 hours): Temp Pulse Resp BP Pulse Ox 97.6 F 55 L 20 118/46 L 100 09/24/17 12:30 09/24/17 12:30 09/24/17 12:30 09/24/17 12:30 09/24/17 12:30 Intake and Output: 09/24/17 09/24/17 06:59 18:59 Intake Total 340 510 Output Total 0 Balance 340 510 - Medications Medications: Current Medications Acetaminophen (Tylenol 650mg/20.3ml Solution Ud) 650 mg PEG Q6H PRN PRN Reason: Fever >100.4 F Last Admin: 09/22/17 11:00 Dose: 650 mg Clopidogrel Bisulfate (Plavix) 75 mg PEG DAILY [facility] Last Admin: 09/24/17 14:59 Dose: 75 mg Enoxaparin Sodium (Lovenox) 30 mg SC DAILY [facility] Last Admin: 09/24/17 14:59 Dose: 30 mg Epoetin Alan (Procrit) 10,000 unit IV [facility] [place] Stop: 10/03/17 09:01 Last Admin: 09/24/17 10:43 Dose: 10,000 unit Famotidine (Pepcid) 20 mg PEG HS [facility] Last Admin: 09/23/17 21:55 Dose: 20 mg Guaifenesin (Robitussin) 100 mg PEG Q6H PRN PRN Reason: Cough Hydralazine HCl (Apresoline) 10 mg IVP Q6 PRN PRN Reason: Systolic Blood Pressure Vancomycin HCl 500 mg/ Sodium (Chloride) 100 mls @ 100 mls/hr IVPB [facility] [place] PRN Reason: Protocol Stop: 09/26/17 09:01 Last Admin: 09/24/17 13:48 Dose: 100 mls/hr Multivitamins/Vitamin C 10 ml/Amino Acids/Electrolytes/Dextrose 1,010 mls @ 42 mls/hr IV .Q24H ONE Stop: 09/25/17 17:59 Gentamicin Sulfate 120 mg/ (Sodium Chloride) 103 mls @ 100 mls/hr IVPB [facility] [place] PRN Reason: Protocol Last Admin: 09/24/17 14:56 Dose: 100 mls/hr Insulin Aspart (Novolog) 0 unit SC ACHS [facility] PRN Reason: Protocol Last Admin: 09/24/17 13:00 Dose: Not Given Ipratropium [place] (Atrovent) 0.5 mg IH RQ6 [facility] Last Admin: 09/24/17 13:30 Dose: 0.5 mg Isosorbide Dinitrate (Isordil) 20 mg PEG Q8 [facility] Last Admin: 09/24/17 14:58 Dose: Not Given Lactic Acid (Lac-Hydrin 12% Lotion (225 G)) 1 gm TOP QSHIFT [facility] Last Admin: 09/24/17 05:32 Dose: 1 applic Lactulose (Enulose) 20 gm PEG HS [facility] Last Admin: 09/23/17 21:54 Dose: 20 gm Levothyroxine Sodium (Synthroid) 50 mcg PEG 0630 [facility] Last Admin: 09/24/17 05:32 Dose: 50 mcg Metoclopramide HCl (Reglan) 10 mg IVPB Q6 [facility] Last Admin: 09/24/17 05:27 Dose: 10 mg Metolazone (Zaroxolyn) 10 mg PEG TTS [facility] Rosuvastatin Calcium (Crestor) 5 mg PEG HS [facility] Last Admin: 09/23/17 21:55 Dose: 5 mg - Labs Labs: 09/23/17 06:31 09/23/17 06:31 PT 13.5 SECONDS (9.7-12.2) H 09/19/17 19:16 INR 1.2 09/19/17 19:16 APTT 42 SECONDS (21-34) H 09/19/17 19:16 - Constitutional Appears: Well - Head Exam Head Exam: ATRAUMATIC, NORMAL INSPECTION, NORMOCEPHALIC - Eye Exam Eye Exam: EOMI, Normal appearance, PERRL Pupil Exam: NORMAL ACCOMODATION, PERRL - ENT Exam ENT Exam: Mucous Membranes Moist, Normal Exam - Neck Exam Neck Exam: Full ROM, Normal Inspection. absent: Lymphadenopathy - Respiratory Exam Respiratory Exam: Decreased Breath Sounds - Cardiovascular Exam Cardiovascular Exam: REGULAR RHYTHM, +S1, +S2 - GI/Abdominal Exam GI & Abdominal Exam: Soft, Diminished Bowel Sounds - Rectal Exam Rectal Exam: Deferred Assessment and Plan - Assessment and Plan (Free Text) Plan: Continue vancomycin Continue gentamicin Continue Reglan 10 mg every 6 Continue monitoring for vomiting Continue follow-up with the multiple consultations We will follow-up with Dr. Ventura patient remains afebrile awa hd
[2017-09-24] MEDS ORDERED: TPN#1 IV ONE (18:00)
--- NOTE | 2017-09-24 20:02 | CP.PCM.PN ---
<Kat Piedra - Last Filed: 09/24/17 20:02> Subjective - Date & Time of Evaluation Date of Evaluation: 09/24/17 Time of Evaluation: 20:02 Objective - Vital Signs/Intake and Output Vital Signs (last 24 hours): Temp Pulse Resp BP Pulse Ox 98.6 F 94 H 23 104/64 100 09/24/17 15:00 09/24/17 15:00 09/24/17 15:00 09/24/17 15:00 09/24/17 15:00 Intake and Output: 09/24/17 09/25/17 18:59 06:59 Intake Total 950 Output Total 0 Balance 950 - Medications Medications: Current Medications Acetaminophen (Tylenol 650mg/20.3ml Solution Ud) 650 mg PEG Q6H PRN PRN Reason: Fever >100.4 F Last Admin: 09/22/17 11:00 Dose: 650 mg Clopidogrel Bisulfate (Plavix) 75 mg PEG DAILY [facility] Last Admin: 09/24/17 14:59 Dose: 75 mg Enoxaparin Sodium (Lovenox) 30 mg SC DAILY [facility] Last Admin: 09/24/17 14:59 Dose: 30 mg Epoetin Alan (Procrit) 10,000 unit IV [facility] [place] Stop: 10/03/17 09:01 Last Admin: 09/24/17 10:43 Dose: 10,000 unit Famotidine (Pepcid) 20 mg PEG HS [facility] Last Admin: 09/23/17 21:55 Dose: 20 mg Guaifenesin (Robitussin) 100 mg PEG Q6H PRN PRN Reason: Cough Hydralazine HCl (Apresoline) 10 mg IVP Q6 PRN PRN Reason: Systolic Blood Pressure Vancomycin HCl 500 mg/ Sodium (Chloride) 100 mls @ 100 mls/hr IVPB [facility] [place] PRN Reason: Protocol Stop: 09/26/17 09:01 Last Admin: 09/24/17 13:48 Dose: 100 mls/hr Multivitamins/Vitamin C 10 ml/Heparin Sodium (Porcine) 1, 000 units/ Amino Acids /Electrolytes/Dextrose 1,011 mls @ 42 mls/hr IV .Q24H [facility] Stop: 09/25/17 17:59 Last Admin: 09/24/17 17:42 Dose: 42 mls/hr Gentamicin Sulfate 120 mg/ (Sodium Chloride) 103 mls @ 100 mls/hr IVPB MWF [facility] PRN Reason: Protocol Last Admin: 09/24/17 14:56 Dose: 100 mls/hr Insulin Aspart (Novolog) 0 unit SC ACHS [facility] PRN Reason: Protocol Last Admin: 09/24/17 17:34 Dose: Not Given Ipratropium [place] (Atrovent) 0.5 mg IH RQ6 [facility] Last Admin: 09/24/17 13:30 Dose: 0.5 mg Isosorbide Dinitrate (Isordil) 20 mg PEG Q8 [facility] Last Admin: 09/24/17 14:58 Dose: Not Given Lactic Acid (Lac-Hydrin 12% Lotion (225 G)) 1 gm TOP QSHIFT [facility] Last Admin: 09/24/17 15:00 Dose: 1 applic Lactulose (Enulose) 20 gm PEG HS [facility] Last Admin: 09/23/17 21:54 Dose: 20 gm Levothyroxine Sodium (Synthroid) 50 mcg PEG 0630 [facility] Last Admin: 09/24/17 05:32 Dose: 50 mcg Metoclopramide HCl (Reglan) 10 mg IVPB Q6 [facility] Last Admin: 09/24/17 17:36 Dose: 10 mg Metolazone (Zaroxolyn) 10 mg PEG TTS [facility] Rosuvastatin Calcium (Crestor) 5 mg PEG HS [facility] Last Admin: 09/23/17 21:55 Dose: 5 mg - Labs Labs: 09/23/17 06:31 09/23/17 06:31 PT 13.5 SECONDS (9.7-12.2) H 09/19/17 19:16 INR 1.2 09/19/17 19:16 APTT 42 SECONDS (21-34) H 09/19/17 19:16 <Jp Hernandez S - Last Filed: 09/24/17 21:12> Objective - Vital Signs/Intake and Output Vital Signs (last 24 hours): Temp Pulse Resp BP Pulse Ox 98.6 F 94 H 23 104/64 100 09/24/17 15:00 09/24/17 15:00 09/24/17 15:00 09/24/17 15:00 09/24/17 15:00 Intake and Output: 03/19/18 03/20/18 18:59 06:59 Intake Total 950 Output Total 0 Balance 950 - Medications Medications: Current Medications Acetaminophen (Tylenol 650mg/20.3ml Solution Ud) 650 mg PEG Q6H PRN PRN Reason: Fever >100.4 F Last Admin: 09/22/17 11:00 Dose: 650 mg Clopidogrel Bisulfate (Plavix) 75 mg PEG DAILY [facility] Last Admin: 09/24/17 14:59 Dose: 75 mg Enoxaparin Sodium (Lovenox) 30 mg SC DAILY [facility] Last Admin: 09/24/17 14:59 Dose: 30 mg Epoetin [place] (Procrit) 10,000 unit IV [facility] [place] Stop: 10/03/17 09:01 Last Admin: 09/24/17 10:43 Dose: 10,000 unit Famotidine (Pepcid) 20 mg PEG HS [facility] Last Admin: 09/23/17 21:55 Dose: 20 mg Guaifenesin (Robitussin) 100 mg PEG Q6H PRN PRN Reason: Cough Hydralazine HCl (Apresoline) 10 mg IVP Q6 PRN PRN Reason: Systolic Blood Pressure Vancomycin HCl 500 mg/ Sodium (Chloride) 100 mls @ 100 mls/hr IVPB [facility] [place] PRN Reason: Protocol Stop: 09/26/17 09:01 Last Admin: 09/24/17 13:48 Dose: 100 mls/hr Multivitamins/Vitamin C 10 ml/Heparin Sodium (Porcine) 1, 000 units/ Amino Acids /Electrolytes/Dextrose 1,011 mls @ 42 mls/hr IV .Q24H [facility] Stop: 09/25/17 17:59 Last Admin: 09/24/17 17:42 Dose: 42 mls/hr Gentamicin Sulfate 120 mg/ (Sodium Chloride) 103 mls @ 100 mls/hr IVPB [facility] [place] PRN Reason: Protocol Last Admin: 09/24/17 14:56 Dose: 100 mls/hr Insulin Aspart (Novolog) 0 unit SC ACHS [facility] PRN Reason: Protocol Last Admin: 09/24/17 17:34 Dose: Not Given Ipratropium [place] (Atrovent) 0.5 mg IH RQ6 [facility] Last Admin: 09/24/17 20:24 Dose: 0.5 mg Isosorbide Dinitrate (Isordil) 20 mg PEG Q8 [facility] Last Admin: 09/24/17 14:58 Dose: Not Given Lactic Acid (Lac-Hydrin 12% Lotion (225 G)) 1 gm TOP QSHIFT [facility] Last Admin: 09/24/17 15:00 Dose: 1 applic Lactulose (Enulose) 20 gm PEG HS [facility] Last Admin: 09/23/17 21:54 Dose: 20 gm Levothyroxine Sodium (Synthroid) 50 mcg PEG 0630 [facility] Last Admin: 09/24/17 05:32 Dose: 50 mcg Metoclopramide HCl (Reglan) 10 mg IVPB Q6 [facility] Last Admin: 09/24/17 17:36 Dose: 10 mg Metolazone (Zaroxolyn) 10 mg PEG TTS [facility] Rosuvastatin Calcium (Crestor) 5 mg PEG HS [facility] Last Admin: 09/23/17 21:55 Dose: 5 mg - Labs Labs: 09/23/17 06:31 09/23/17 06:31 PT 13.5 SECONDS (9.7-12.2) H 09/19/17 19:16 INR 1.2 09/19/17 19:16 APTT 42 SECONDS (21-34) H 09/19/17 19:16 Assessment and Plan - Assessment and Plan (Free Text) Plan: Continue IV antibiotic Continue duo DuoNeb Continue IV Zosyn Hemodialysis Micafungin Follow-up with Dr. LEYVA Renal PPN Continue same As ordered
[2017-09-25] MEDS: Ipratropium 0.02% Inhal Soln (0.5 mg/2.5 ml) UD IH SCH ×3 (01:23→13:18)
[2017-09-25] MEDS: Ammonium Lactate 12% Lotion (225 g) TOP SCH ×2 (05:57→13:55)
[2017-09-25] MEDS: Levothyroxine 50 MCG TAB PEG SCH (06:03)
[2017-09-25] MEDS: (Novolog) Insulin Aspart, Recombinant 100 u/ml 10 ml vial SC SCH ×3 (08:03→17:10)
[2017-09-25] MEDS: Enoxaparin 30 mg Syringe SC SCH (09:37)
[2017-09-25] MEDS ORDERED: metOLazone 5 MG TAB PEG SCH (10:00)
--- NOTE | 2017-09-25 10:51 | CP.PCM.PN ---
Subjective - Date & Time of Evaluation Date of Evaluation: 09/25/17 Time of Evaluation: 08:00 Objective - Vital Signs/Intake and Output Vital Signs (last 24 hours): Temp Pulse Resp BP Pulse Ox 99.0 F 70 20 145/65 99 09/25/17 08:08 09/25/17 08:08 09/25/17 08:08 09/25/17 08:08 09/25/17 08:08 Intake and Output: 09/25/17 09/25/17 06:59 18:59 Intake Total 546 Output Total 400 Balance 146 - Medications Medications: Current Medications Acetaminophen (Tylenol 650mg/20.3ml Solution Ud) 650 mg PEG Q6H PRN PRN Reason: Fever >100.4 F Last Admin: 09/22/17 11:00 Dose: 650 mg Clopidogrel Bisulfate (Plavix) 75 mg PEG DAILY [facility] Last Admin: 09/25/17 09:36 Dose: 75 mg Enoxaparin Sodium (Lovenox) 30 mg SC DAILY [facility] Last Admin: 09/25/17 09:37 Dose: 30 mg Epoetin Alan (Procrit) 10,000 unit IV [facility] [place] [place] Stop: 10/03/17 09:01 Last Admin: 09/24/17 10:43 Dose: 10,000 unit Famotidine (Pepcid) 20 mg PEG HS [facility] Last Admin: 09/24/17 21:27 Dose: 20 mg Guaifenesin (Robitussin) 100 mg PEG Q6H PRN PRN Reason: Cough Hydralazine HCl (Apresoline) 10 mg IVP Q6 PRN PRN Reason: Systolic Blood Pressure Vancomycin HCl 500 mg/ Sodium (Chloride) 100 mls @ 100 mls/hr IVPB [facility] [place] [place] PRN Reason: Protocol Stop: 09/26/17 09:01 Last Admin: 09/24/17 13:48 Dose: 100 mls/hr Multivitamins/Vitamin C 10 ml/Heparin Sodium (Porcine) 1, 000 units/ Amino Acids /Electrolytes/Dextrose 1,011 mls @ 42 mls/hr IV .Q24H [facility] Stop: 09/25/17 17:59 Last Admin: 09/24/17 17:42 Dose: 42 mls/hr Gentamicin Sulfate 120 mg/ (Sodium Chloride) 103 mls @ 100 mls/hr IVPB MWF [facility] PRN Reason: Protocol Last Admin: 09/24/17 14:56 Dose: 100 mls/hr Multivitamins/Vitamin C 10 ml/Heparin Sodium (Porcine) 1, 000 units/ Amino Acids 1,011 mls @ 42 mls/hr IV .Q24H [facility] Stop: 09/26/17 17:59 Insulin Aspart (Novolog) 0 unit SC ACHS [facility] PRN Reason: Protocol Last Admin: 09/25/17 08:03 Dose: 1 unit Ipratropium [place] (Atrovent) 0.5 mg IH RQ6 [facility] Last Admin: 09/25/17 07:32 Dose: 0.5 mg Isosorbide Dinitrate (Isordil) 20 mg PEG Q8 [facility] Last Admin: 09/25/17 05:58 Dose: 20 mg Lactic Acid (Lac-Hydrin 12% Lotion (225 G)) 1 gm TOP QSHIFT [facility] Last Admin: 09/25/17 05:57 Dose: 1 applic Lactulose (Enulose) 20 gm PEG HS [facility] Last Admin: 09/24/17 21:25 Dose: 20 gm Levothyroxine Sodium (Synthroid) 50 mcg PEG 0630 [facility] Last Admin: 09/25/17 06:03 Dose: 50 mcg Metoclopramide HCl (Reglan) 10 mg IVPB Q6 [facility] Last Admin: 09/25/17 06:24 Dose: 10 mg Metolazone (Zaroxolyn) 10 mg PEG TTS [facility] Rosuvastatin Calcium (Crestor) 5 mg PEG HS [facility] Last Admin: 09/24/17 21:27 Dose: 5 mg - Labs Labs: 09/23/17 06:31 09/23/17 06:31 PT 13.5 SECONDS (9.7-12.2) H 09/19/17 19:16 INR 1.2 09/19/17 19:16 APTT 42 SECONDS (21-34) H 09/19/17 19:16 Assessment and Plan - Assessment and Plan (Free Text) Plan: Volumes are relatively high secondary to gastroparesis status post GI doctors to follow-up Upper GI series via G-tube Continue feeding as ordered Follow-up with the GI Follow-up with the dialysis Follow up with ID Other consultation as ordered
--- NOTE | 2017-09-25 11:48 | CP.PCM.PN ---
Subjective - Date & Time of Evaluation Date of Evaluation: 09/25/17 Time of Evaluation: 11:45 - Subjective Subjective: Mental status is unchange. Objective - Vital Signs/Intake and Output Vital Signs (last 24 hours): Temp Pulse Resp BP Pulse Ox 99.0 F 70 20 145/65 99 09/25/17 08:08 09/25/17 08:08 09/25/17 08:08 09/25/17 08:08 09/25/17 08:08 Intake and Output: 09/25/17 09/25/17 06:59 18:59 Intake Total 546 Output Total 400 Balance 146 - Medications Medications: Current Medications Acetaminophen (Tylenol 650mg/20.3ml Solution Ud) 650 mg PEG Q6H PRN PRN Reason: Fever >100.4 F Last Admin: 09/22/17 11:00 Dose: 650 mg Clopidogrel Bisulfate (Plavix) 75 mg PEG DAILY [facility] Last Admin: 09/25/17 09:36 Dose: 75 mg Enoxaparin Sodium (Lovenox) 30 mg SC DAILY [facility] Last Admin: 09/25/17 09:37 Dose: 30 mg Epoetin [place] (Procrit) 10,000 unit IV [facility] [place] Stop: 10/03/17 09:01 Last Admin: 09/24/17 10:43 Dose: 10,000 unit Famotidine (Pepcid) 20 mg PEG HS [facility] Last Admin: 09/24/17 21:27 Dose: 20 mg Guaifenesin (Robitussin) 100 mg PEG Q6H PRN PRN Reason: Cough Hydralazine HCl (Apresoline) 10 mg IVP Q6 PRN PRN Reason: Systolic Blood Pressure Vancomycin HCl 500 mg/ Sodium (Chloride) 100 mls @ 100 mls/hr IVPB [facility] [place] PRN Reason: Protocol Stop: 09/26/17 09:01 Last Admin: 09/24/17 13:48 Dose: 100 mls/hr Multivitamins/Vitamin C 10 ml/Heparin Sodium (Porcine) 1, 000 units/ Amino Acids /Electrolytes/Dextrose 1,011 mls @ 42 mls/hr IV .Q24H [facility] Stop: 09/25/17 17:59 Last Admin: 09/24/17 17:42 Dose: 42 mls/hr Gentamicin Sulfate 120 mg/ (Sodium Chloride) 103 mls @ 100 mls/hr IVPB [facility] PRN Reason: Protocol Last Admin: 09/24/17 14:56 Dose: 100 mls/hr Multivitamins/Vitamin C 10 ml/Heparin Sodium (Porcine) 1, 000 units/ Amino Acids /Electrolytes/Dextrose 1,011 mls @ 42 mls/hr IV .Q24H [facility] Stop: 09/26/17 17:59 Insulin Aspart (Novolog) 0 unit SC ACHS [facility] PRN Reason: Protocol Last Admin: 09/25/17 08:03 Dose: 1 unit Ipratropium [place] (Atrovent) 0.5 mg IH RQ6 [facility] Last Admin: 09/25/17 07:32 Dose: 0.5 mg Isosorbide Dinitrate (Isordil) 20 mg PEG Q8 [facility] Last Admin: 09/25/17 05:58 Dose: 20 mg Lactic Acid (Lac-Hydrin 12% Lotion (225 G)) 1 gm TOP QSHIFT [facility] Last Admin: 09/25/17 05:57 Dose: 1 applic Lactulose (Enulose) 20 gm PEG HS [facility] Last Admin: 09/24/17 21:25 Dose: 20 gm Levothyroxine Sodium (Synthroid) 50 mcg PEG 0630 [facility] Last Admin: 09/25/17 06:03 Dose: 50 mcg Metoclopramide HCl (Reglan) 10 mg IVPB Q6 [facility] Last Admin: 09/25/17 06:24 Dose: 10 mg Metolazone (Zaroxolyn) 10 mg PEG TTS [facility] Last Admin: 09/25/17 11:31 Dose: 10 mg Rosuvastatin Calcium (Crestor) 5 mg PEG HS [facility] Last Admin: 09/24/17 21:27 Dose: 5 mg - Labs Labs: 09/23/17 06:31 09/23/17 06:31 PT 13.5 SECONDS (9.7-12.2) H 09/19/17 19:16 INR 1.2 09/19/17 19:16 APTT 42 SECONDS (21-34) H 09/19/17 19:16 - Constitutional Appears: No Acute Distress - Head Exam Head Exam: ATRAUMATIC, NORMOCEPHALIC - Neck Exam Neck Exam: absent: Lymphadenopathy, Thyromegaly - Respiratory Exam Respiratory Exam: NORMAL BREATHING PATTERN. absent: Rales, Rhonchi, Wheezes - Cardiovascular Exam Cardiovascular Exam: REGULAR RHYTHM, +S1, +S2. absent: Gallop, Rubs, Murmur - GI/Abdominal Exam GI & Abdominal Exam: Soft, Normal Bowel Sounds. absent: Tenderness, Organomegaly Additional comments: Gastrostomy site clean and dry - Rectal Exam Rectal Exam: Deferred - Extremities Exam Extremities Exam: absent: Calf Tenderness, Pedal Edema Assessment and Plan (1) Small bowel obstruction Assessment & Plan: Clonidine and Dilaudid were discontinued. Upper GI series was done today and showed no appreciable emptying of the stomach, though the final report is pending. Recommend continuing Reglan and following output from G tube. Status: Acute
--- NOTE | 2017-09-25 12:26 | CP.PCM.PN ---
Subjective - Date & Time of Evaluation Date of Evaluation: 09/25/17 Time of Evaluation: 09:00 - Subjective Subjective: events noted iv rx in progress Objective - Vital Signs/Intake and Output Vital Signs (last 24 hours): Temp Pulse Resp BP Pulse Ox 99.0 F 70 20 145/65 99 09/25/17 08:08 09/25/17 08:08 09/25/17 08:08 09/25/17 08:08 09/25/17 08:08 Intake and Output: 09/25/17 09/25/17 06:59 18:59 Intake Total 546 Output Total 400 Balance 146 - Medications Medications: Current Medications Acetaminophen (Tylenol 650mg/20.3ml Solution Ud) 650 mg PEG Q6H PRN PRN Reason: Fever >100.4 F Last Admin: 09/22/17 11:00 Dose: 650 mg Clopidogrel Bisulfate (Plavix) 75 mg PEG DAILY [facility] Last Admin: 09/25/17 09:36 Dose: 75 mg Enoxaparin Sodium (Lovenox) 30 mg SC DAILY [facility] Last Admin: 09/25/17 09:37 Dose: 30 mg Epoetin Alan (Procrit) 10,000 unit IV [facility] [place] Stop: 10/03/17 09:01 Last Admin: 09/24/17 10:43 Dose: 10,000 unit Famotidine (Pepcid) 20 mg PEG HS [facility] Last Admin: 09/24/17 21:27 Dose: 20 mg Guaifenesin (Robitussin) 100 mg PEG Q6H PRN PRN Reason: Cough Hydralazine HCl (Apresoline) 10 mg IVP Q6 PRN PRN Reason: Systolic Blood Pressure Vancomycin HCl 500 mg/ Sodium (Chloride) 100 mls @ 100 mls/hr IVPB [facility] [place] PRN Reason: Protocol Stop: 09/26/17 09:01 Last Admin: 09/24/17 13:48 Dose: 100 mls/hr Multivitamins/Vitamin C 10 ml/Heparin Sodium (Porcine) 1, 000 units/ Amino Acids /Electrolytes/Dextrose 1,011 mls @ 42 mls/hr IV .Q24H ONE Stop: 09/25/17 17:59 Last Admin: 09/24/17 17:42 Dose: 42 mls/hr Gentamicin Sulfate 120 mg/ (Sodium Chloride) 103 mls @ 100 mls/hr IVPB [facility] PRN Reason: Protocol Last Admin: 09/24/17 14:56 Dose: 100 mls/hr Multivitamins/Vitamin C 10 ml/Heparin Sodium (Porcine) 1, 000 units/ Amino Acids /Electrolytes/Dextrose 1,011 mls @ 42 mls/hr IV .Q24H [facility] Stop: 09/26/17 17:59 Insulin Aspart (Novolog) 0 unit SC ACHS [facility] PRN Reason: Protocol Last Admin: 09/25/17 12:15 Dose: 1 unit Ipratropium [place] (Atrovent) 0.5 mg IH RQ6 [facility] Last Admin: 09/25/17 07:32 Dose: 0.5 mg Isosorbide Dinitrate (Isordil) 20 mg PEG Q8 [facility] Last Admin: 09/25/17 05:58 Dose: 20 mg Lactic Acid (Lac-Hydrin 12% Lotion (225 G)) 1 gm TOP QSHIFT [facility] Last Admin: 09/25/17 05:57 Dose: 1 applic Lactulose (Enulose) 20 gm PEG HS [facility] Last Admin: 09/24/17 21:25 Dose: 20 gm Levothyroxine Sodium (Synthroid) 50 mcg PEG 0630 [facility] Last Admin: 09/25/17 06:03 Dose: 50 mcg Metoclopramide HCl (Reglan) 10 mg IVPB Q6 [facility] Last Admin: 09/25/17 12:21 Dose: 10 mg Metolazone (Zaroxolyn) 10 mg PEG TTS [facility] Last Admin: 09/25/17 11:31 Dose: 10 mg Rosuvastatin Calcium (Crestor) 5 mg PEG HS [facility] Last Admin: 09/24/17 21:27 Dose: 5 mg - Labs Labs: 09/23/17 06:31 09/23/17 06:31 PT 13.5 SECONDS (9.7-12.2) H 09/19/17 19:16 INR 1.2 09/19/17 19:16 APTT 42 SECONDS (21-34) H 09/19/17 19:16 Assessment and Plan (1) Surgical arteriovenous fistula hemorrhage Status: Acute (2) Altered mental status Status: Acute
--- NOTE | 2017-09-25 13:17 | CP.PCM.PN ---
Subjective - Date & Time of Evaluation Date of Evaluation: 09/25/17 Time of Evaluation: 07:40 - Subjective Subjective: clinically same Objective - Vital Signs/Intake and Output Vital Signs (last 24 hours): Temp Pulse Resp BP Pulse Ox 99.0 F 70 20 145/65 99 09/25/17 08:08 09/25/17 08:08 09/25/17 08:08 09/25/17 08:08 09/25/17 08:08 Intake and Output: 09/25/17 09/25/17 06:59 18:59 Intake Total 546 Output Total 400 Balance 146 - Medications Medications: Current Medications Acetaminophen (Tylenol 650mg/20.3ml Solution Ud) 650 mg PEG Q6H PRN PRN Reason: Fever >100.4 F Last Admin: 09/22/17 11:00 Dose: 650 mg Clopidogrel Bisulfate (Plavix) 75 mg PEG DAILY [facility] Last Admin: 09/25/17 09:36 Dose: 75 mg Enoxaparin Sodium (Lovenox) 30 mg SC DAILY [facility] Last Admin: 09/25/17 09:37 Dose: 30 mg Epoetin Alan (Procrit) 10,000 unit IV [facility] [place] Stop: 10/03/17 09:01 Last Admin: 09/24/17 10:43 Dose: 10,000 unit Famotidine (Pepcid) 20 mg PEG HS [facility] Last Admin: 09/24/17 21:27 Dose: 20 mg Guaifenesin (Robitussin) 100 mg PEG Q6H PRN PRN Reason: Cough Hydralazine HCl (Apresoline) 10 mg IVP Q6 PRN PRN Reason: Systolic Blood Pressure Vancomycin HCl 500 mg/ Sodium (Chloride) 100 mls @ 100 mls/hr IVPB [facility] PRN Reason: Protocol Stop: 09/26/17 09:01 Last Admin: 09/24/17 13:48 Dose: 100 mls/hr Multivitamins/Vitamin C 10 ml/Heparin Sodium (Porcine) 1, 000 units/ Amino Acids /Electrolytes/Dextrose 1,011 mls @ 42 mls/hr IV .Q24H [facility] Stop: 09/25/17 17:59 Last Admin: 09/24/17 17:42 Dose: 42 mls/hr Gentamicin Sulfate 120 mg/ (Sodium Chloride) 103 mls @ 100 mls/hr IVPB [facility] PRN Reason: Protocol Last Admin: 09/24/17 14:56 Dose: 100 mls/hr Multivitamins/Vitamin C 10 ml/Heparin Sodium (Porcine) 1, 000 units/ Amino Acids /Electrolytes/Dextrose 1,011 mls @ 42 mls/hr IV .Q24H [facility] Stop: 09/26/17 17:59 Insulin Aspart (Novolog) 0 unit SC ACHS [facility] PRN Reason: Protocol Last Admin: 09/25/17 12:15 Dose: 1 unit Ipratropium [place] (Atrovent) 0.5 mg IH RQ6 [facility] Last Admin: 09/25/17 07:32 Dose: 0.5 mg Isosorbide Dinitrate (Isordil) 20 mg PEG Q8 [facility] Last Admin: 09/25/17 05:58 Dose: 20 mg Lactic Acid (Lac-Hydrin 12% Lotion (225 G)) 1 gm TOP QSHIFT [facility] Last Admin: 09/25/17 05:57 Dose: 1 applic Lactulose (Enulose) 20 gm PEG HS [facility] Last Admin: 09/24/17 21:25 Dose: 20 gm Levothyroxine Sodium (Synthroid) 50 mcg PEG 0630 [facility] Last Admin: 09/25/17 06:03 Dose: 50 mcg Metoclopramide HCl (Reglan) 10 mg IVPB Q6 [facility] Last Admin: 09/25/17 12:21 Dose: 10 mg Metolazone (Zaroxolyn) 10 mg PEG TTS [facility] Last Admin: 09/25/17 11:31 Dose: 10 mg Rosuvastatin Calcium (Crestor) 5 mg PEG HS [facility] Last Admin: 09/24/17 21:27 Dose: 5 mg - Labs Labs: 09/23/17 06:31 09/23/17 06:31 PT 13.5 SECONDS (9.7-12.2) H 09/19/17 19:16 INR 1.2 09/19/17 19:16 APTT 42 SECONDS (21-34) H 09/19/17 19:16 - Constitutional Appears: Well - Head Exam Head Exam: ATRAUMATIC, NORMAL INSPECTION, NORMOCEPHALIC - Eye Exam Eye Exam: EOMI, Normal appearance, PERRL Pupil Exam: NORMAL ACCOMODATION, PERRL - ENT Exam ENT Exam: Mucous Membranes Moist, Normal Exam - Neck Exam Neck Exam: Full ROM, Normal Inspection. absent: Lymphadenopathy - Respiratory Exam Respiratory Exam: Decreased Breath Sounds - Cardiovascular Exam Cardiovascular Exam: REGULAR RHYTHM, +S1, +S2 - GI/Abdominal Exam GI & Abdominal Exam: Soft, Diminished Bowel Sounds - Rectal Exam Rectal Exam: Deferred
--- NOTE | 2017-09-25 14:38 | RAD ---
PROCEDURE: Limited single-contrast Upper GI series. HISTORY: Gastroparesis vs. obstruction. Patient has a gastrojejunostomy. COMPARISON: CT abdomen and pelvis 09/22/2017 TECHNIQUE: Fluoroscopic evaluation of the stomach and small bowel was performed following administration of oral contrast via a gastrostomy tube. FINDINGS: Customer Care Specialist view of the abdomen demonstrates multiple surgical clips of the upper abdomen, consistent with history of prior distal antrectomy and Billroth 2 procedure. Multiple small bowel sutures noted left abdomen. Stomach: Unremarkable, without gross mucosal abnormality, ulceration, mass lesion or outlet obstruction. Small bowel: Contrast was seen readily flowing into the patent gastrojejunostomy without evidence of obstruction. IMPRESSION: Contrast was seen readily flowing into the patent gastrojejunostomy without evidence of obstruction.
--- NOTE | 2017-09-25 14:57 | CP.PCM.PN ---
Subjective - Date & Time of Evaluation Date of Evaluation: 09/25/17 Time of Evaluation: 14:57 Objective - Vital Signs/Intake and Output Vital Signs (last 24 hours): Temp Pulse Resp BP Pulse Ox 99.0 F 70 20 145/65 99 09/25/17 08:08 09/25/17 08:08 09/25/17 08:08 09/25/17 08:08 09/25/17 08:08 Intake and Output: 09/25/17 09/25/17 06:59 18:59 Intake Total 546 486 Output Total 400 100 Balance 146 386 - Medications Medications: Current Medications Acetaminophen (Tylenol 650mg/20.3ml Solution Ud) 650 mg PEG Q6H PRN PRN Reason: Fever >100.4 F Last Admin: 09/22/17 11:00 Dose: 650 mg Clopidogrel Bisulfate (Plavix) 75 mg PEG DAILY [facility] Last Admin: 09/25/17 09:36 Dose: 75 mg Enoxaparin Sodium (Lovenox) 30 mg SC DAILY [facility] Last Admin: 09/25/17 09:37 Dose: 30 mg Epoetin Alan (Procrit) 10,000 unit [place] [facility] [place]: 10/03/17 09:01 Last Admin: 09/24/17 10:43 Dose: 10,000 unit Famotidine (Pepcid) 20 mg PEG HS [facility] Last Admin: 09/24/17 21:27 Dose: 20 mg Guaifenesin (Robitussin) 100 mg PEG Q6H PRN PRN Reason: Cough Hydralazine HCl (Apresoline) 10 mg IVP Q6 PRN PRN Reason: Systolic Blood Pressure Vancomycin HCl 500 mg/ Sodium (Chloride) 100 mls @ 100 mls/hr IVPB [facility] [place] Reason: Protocol Stop: 09/26/17 09:01 Last Admin: 09/24/17 13:48 Dose: 100 mls/hr Multivitamins/Vitamin C 10 ml/Heparin Sodium (Porcine) 1, 000 units/ Amino Acids /Electrolytes/Dextrose 1,011 mls @ 42 mls/hr IV .Q24H [facility] Stop: 09/25/17 17:59 Last Admin: 09/24/17 17:42 Dose: 42 mls/hr Gentamicin Sulfate 120 mg/ (Sodium Chloride) 103 mls @ 100 mls/hr IVPB [facility] [place] Reason: Protocol Last Admin: 09/24/17 14:56 Dose: 100 mls/hr Multivitamins/Vitamin C 10 ml/Heparin Sodium (Porcine) 1, 000 units/ Amino Acids /Electrolytes/Dextrose 1,011 mls @ 42 mls/hr IV .Q24H [facility] Stop: 09/26/17 17:59 Insulin Aspart (Novolog) 0 unit SC ACHS [facility] PRN Reason: Protocol Last Admin: 09/25/17 12:15 Dose: 1 unit Ipratropium [place] (Atrovent) 0.5 mg IH RQ6 [facility] Last Admin: 09/25/17 13:18 Dose: 0.5 mg Isosorbide Dinitrate (Isordil) 20 mg PEG Q8 [facility] Last Admin: 09/25/17 13:56 Dose: 20 mg Lactic Acid (Lac-Hydrin 12% Lotion (225 G)) 1 gm TOP QSHIFT [facility] Last Admin: 09/25/17 13:55 Dose: 1 applic Lactulose (Enulose) 20 gm PEG HS [facility] Last Admin: 09/24/17 21:25 Dose: 20 gm Levothyroxine Sodium (Synthroid) 50 mcg PEG 0630 [facility] Last Admin: 09/25/17 06:03 Dose: 50 mcg Metoclopramide HCl (Reglan) 10 mg IVPB Q6 [facility] Last Admin: 09/25/17 12:21 Dose: 10 mg Metolazone (Zaroxolyn) 10 mg PEG TTS [facility] Last Admin: 09/25/17 11:31 Dose: 10 mg Rosuvastatin Calcium (Crestor) 5 mg PEG HS [facility] Last Admin: 09/24/17 21:27 Dose: 5 mg - Labs Labs: 09/23/17 06:31 09/23/17 06:31 PT 13.5 SECONDS (9.7-12.2) H 09/19/17 19:16 INR 1.2 09/19/17 19:16 APTT 42 SECONDS (21-34) H 09/19/17 19:16
[2017-09-25 17:34] VITALS: BP 151/65; PULSE 68; RESP 18; TEMP 99; O2SAT 100
--- NOTE | 2017-09-25 17:54 | CP.PCM.PN ---
Subjective - Date & Time of Evaluation Date of Evaluation: 09/25/17 Time of Evaluation: 17:54 - Subjective Subjective: awake, responsive, non verbal, vent dependent. vital signs stable no fever today. Objective - Vital Signs/Intake and Output Vital Signs (last 24 hours): Temp Pulse Resp BP Pulse Ox 99 F 68 18 151/65 H 100 09/25/17 16:00 09/25/17 16:00 09/25/17 16:00 09/25/17 16:00 09/25/17 16:00 Intake and Output: 09/25/17 09/25/17 06:59 18:59 Intake Total 546 486 Output Total 400 100 Balance 146 386 - Medications Medications: Current Medications Acetaminophen (Tylenol 650mg/20.3ml Solution Ud) 650 mg PEG Q6H PRN PRN Reason: Fever >100.4 F Last Admin: 09/22/17 11:00 Dose: 650 mg Clopidogrel Bisulfate (Plavix) 75 mg PEG DAILY [facility] Last Admin: 09/25/17 09:36 Dose: 75 mg Enoxaparin Sodium (Lovenox) 30 mg SC DAILY [facility] Last Admin: 09/25/17 09:37 Dose: 30 mg Epoetin [place] (Procrit) 10,000 unit [place] [facility] Stop: 10/03/17 09:01 Last Admin: 09/24/17 10:43 Dose: 10,000 unit Famotidine (Pepcid) 20 mg PEG HS [facility] Last Admin: 09/24/17 21:27 Dose: 20 mg Guaifenesin (Robitussin) 100 mg PEG Q6H PRN PRN Reason: Cough Hydralazine HCl (Apresoline) 10 mg IVP Q6 PRN PRN Reason: Systolic Blood Pressure Vancomycin HCl 500 mg/ Sodium (Chloride) 100 mls @ 100 mls/hr IVPB [facility]N Reason: Protocol Stop: 09/26/17 09:01 Last Admin: 09/24/17 13:48 Dose: 100 mls/hr Multivitamins/Vitamin C 10 ml/Heparin Sodium (Porcine) 1, 000 units/ Amino Acids /Electrolytes/Dextrose 1,011 mls @ 42 mls/hr IV .Q24H [facility] Stop: 09/25/17 17:59 Last Admin: 09/24/17 17:42 Dose: 42 mls/hr Gentamicin Sulfate 120 mg/ (Sodium Chloride) 103 mls @ 100 mls/hr IVPB [facility] PRN Reason: Protocol Last Admin: 09/24/17 14:56 Dose: 100 mls/hr Multivitamins/Vitamin C 10 ml/Heparin Sodium (Porcine) 1, 000 units/ Amino Acids /Electrolytes/Dextrose 1,011 mls @ 42 mls/hr IV .Q24H [facility] Stop: 09/26/17 17:59 Insulin Aspart (Novolog) 0 unit SC ACHS [facility] PRN Reason: Protocol Last Admin: 09/25/17 12:15 Dose: 1 unit Ipratropium [place] (Atrovent) 0.5 mg IH RQ6 [facility] Last Admin: 09/25/17 13:18 Dose: 0.5 mg Isosorbide Dinitrate (Isordil) 20 mg PEG Q8 [facility] Last Admin: 09/25/17 13:56 Dose: 20 mg Lactic Acid (Lac-Hydrin 12% Lotion (225 G)) 1 gm TOP QSHIFT [facility] Last Admin: 09/25/17 13:55 Dose: 1 applic Lactulose (Enulose) 20 gm PEG HS [facility] Last Admin: 09/24/17 21:25 Dose: 20 gm Levothyroxine Sodium (Synthroid) 50 mcg PEG 0630 [facility] Last Admin: 09/25/17 06:03 Dose: 50 mcg Metoclopramide HCl (Reglan) 10 mg IVPB Q6 [facility] Last Admin: 09/25/17 12:21 Dose: 10 mg Metolazone (Zaroxolyn) 10 mg PEG TTS [facility] Last Admin: 09/25/17 11:31 Dose: 10 mg Rosuvastatin Calcium (Crestor) 5 mg PEG HS [facility] Last Admin: 09/24/17 21:27 Dose: 5 mg - Labs Labs: 09/23/17 06:31 09/23/17 06:31 PT 13.5 SECONDS (9.7-12.2) H 09/19/17 19:16 INR 1.2 09/19/17 19:16 APTT 42 SECONDS (21-34) H 09/19/17 19:16 Assessment and Plan - Assessment and Plan (Free Text) Assessment: Patient is seen and examined after the GI series which shows no obstruction. Patient is nonverbal, vent dependent via tracheostomy. Pseudomonas on sputum culture, on iv genta and vanco for 7 more days after dialysis. Discussed with DR Matilde Hernandez, plan to keep npo and continue with TPN via his PICC line. Advised to discharge to [facility] under his service.
[2017-09-25] MEDS ORDERED: TPN#2 IV SCH (18:00)
== END 2017-09-25 18:35 | DRG 314 ==
LOC: C.ER 17:42 → C.9E 19:44 → C.5S 21:05 → C.9E 21:21 → C.3T 09-20 01:04
PROVIDERS: ADMIT Internal Medicine Nephrology; ATTEND Internal Medicine Nephrology
PROC: 5A1955Z Respiratory Ventilation, Greater than 96 Consecutive Hours (ICD-10-PCS; principal; 2017-09-19)
PROC: 3E0G76Z Introduction of Nutritional Substance into Upper GI, Via Natural or Artificial Opening (ICD-10-PCS; 2017-09-19)
PROC: 5A1D70Z Performance of Urinary Filtration, Intermittent, Less than 6 Hours Per Day (ICD-10-PCS; 2017-09-21)
PROC: 5A1D70Z Performance of Urinary Filtration, Intermittent, Less than 6 Hours Per Day (ICD-10-PCS; 2017-09-24)
DX: T82.7XXA Infection and inflammatory reaction due to other cardiac and vascular devices, implants and grafts, initial encounter (principal); A41.9 Sepsis, unspecified organism; N18.6 End stage renal disease; I13.2 Hypertensive heart and chronic kidney disease with heart failure and with stage 5 chronic kidney disease, or end stage renal disease; G93.40 Encephalopathy, unspecified; Z99.11 Dependence on respirator [ventilator] status; J18.9 Pneumonia, unspecified organism; J96.10 Chronic respiratory failure, unspecified whether with hypoxia or hypercapnia; K56.609 Unspecified intestinal obstruction, unspecified as to partial versus complete obstruction; J44.0 Chronic obstructive pulmonary disease with (acute) lower respiratory infection; T82.838A Hemorrhage due to vascular prosthetic devices, implants and grafts, initial encounter; Z93.0 Tracheostomy status; E11.22 Type 2 diabetes mellitus with diabetic chronic kidney disease; I50.9 Heart failure, unspecified; E03.9 Hypothyroidism, unspecified; E78.5 Hyperlipidemia, unspecified; M19.90 Unspecified osteoarthritis, unspecified site; Y83.2 Surgical operation with anastomosis, bypass or graft as the cause of abnormal reaction of the patient, or of later complication, without mention of misadventure at the time of the procedure; Z86.73 Personal history of transient ischemic attack (TIA), and cerebral infarction without residual deficits; Z87.11 Personal history of peptic ulcer disease; Z87.01 Personal history of pneumonia (recurrent); Z87.891 Personal history of nicotine dependence; Z93.1 Gastrostomy status; Z95.5 Presence of coronary angioplasty implant and graft; Z99.2 Dependence on renal dialysis; I25.10 Atherosclerotic heart disease of native coronary artery without angina pectoris; H50.9 Unspecified strabismus; E78.00 Pure hypercholesterolemia, unspecified; E11.649 Type 2 diabetes mellitus with hypoglycemia without coma